=== PATIENT | female | born 2000 | race Caucasian/White ===

== ENCOUNTER 2023-01-27 15:39 | Outpatient (RCR) | payer BC, SELFPAY ==
[2023-01-27 16:36] LABS: HCG Quantitative <1 mIU/mL
== END 2023-02-21 17:34 | disposition home or self-care (01) ==
LOC: LAB 15:39
PROVIDERS: PCP Family Medicine; Visit Provider Obstetrics & Gynecology
DX: N92.6 Irregular menstruation, unspecified (principal)
CPT/HCPCS: 36415; 84702

== ENCOUNTER 2023-04-21 13:48 | Outpatient (OUT) | payer BC, SELFPAY ==
--- NOTE | 2023-04-21 14:13 | US_ITS ---
[address] [address] Patient Name: CHARLY FOSTER MRN: [id number] date: 2000 Sex: F Assigned Patient Location: US Current Patient Location: US Accession/Order Number: [id number] Exam Date: 04/21/2023 14:40 Report Date: 04/21/2023 15:18 At the request of: MAKAYLA SMITH Procedure: US pelvis transvaginal EXAMINATION: US pelvis transvaginal HISTORY: PCOS E28.2 COMPARISON: No relevant comparison available. TECHNIQUE: Transabdominal and/or transvaginal sonographic examination was performed as indicated by examination type. FINDINGS: UTERUS: Normal size and appearance. Incidental 4 mm nabothian cysts within cervix. Uterus size: 7.0 x 4.0 x 3.0 cm ENDOMETRIUM: Normal homogeneous appearance. Endometrial thickness: 8 mm RIGHT OVARY: Contains numerous small peripherally located follicles. Duplex Doppler demonstrates normal waveform and flow; resistive index 0.5. Ovary size: 3.8 x 2.2 x 1.6 cm LEFT OVARY: Contains numerous small peripherally located follicles. Duplex Doppler demonstrates normal waveform and flow; resistive index 0.5. Ovary size: 2.7 x 2.2 x 2.4 cm CUL-DE-SAC: Unremarkable. No significant free fluid. BLADDER: Unremarkable. OTHER: None. US/US pelvis transvaginal IMPRESSION: 1. Numerous small peripherally located follicles within both ovaries; nonspecific but often associated with polycystic ovarian syndrome. 2. Unremarkable uterus and endometrium. Electronically authenticated by: GREGORY KLEIN Date: 04/21/2023 15:18
[2023-04-21 14:28] LABS: Basophils Percent Auto 0.4 % (0.2-2.0); Eosinophils Absolute Auto 0.1 10^3/uL (0.0-0.7); Eosinophils Percent Auto 0.9 % (0.9-7.0); Hematocrit 44.2 % (36.0-48.0); Hemoglobin 14.9 g/dL (12.0-16.0); Immature Granulocytes Abs Auto 0.03 10^3/uL (0.00-0.03); Immature Granulocytes Pct Auto 0.3 % (0.0-0.5); Lymphocytes Absolute Auto 1.9 10^3/uL (1.2-3.8); Mean Corpuscular HGB Conc 33.7 g/dL (29.9-35.2); Mean Corpuscular Hemoglobin 30.7 pg (26.7-34.0); Mean Corpuscular Volume 91.1 fL (81.0-99.0); Mean Platelet Volume 9.6 fL (9.5-13.5); Monocytes Absolute Auto 0.6 10^3/uL (0.3-0.8); Monocytes Percent Auto 6.9 % (1.7-12.0); Neutrophils Absolute Auto 6.4 10^3/uL (1.4-6.5); Neutrophils Percent Auto 70.5 % (43.0-75.0); Platelet Count 307 10^3/uL (150-450); Red Blood Count 4.85 10^6/uL (4.20-5.40)
[2023-04-21 14:43] LABS: Estimated Average Glucose 103 mg/dL; Glycohemoglobin A1C 5.2 % (4.5-6.2)
[2023-04-21 14:55] LABS: HCG Quantitative <1 mIU/mL; Thyroid Stimulating Hormone 0.765 uIU/mL (0.358-3.740)
[2023-04-21 15:49] LABS: Free T4 0.92 ng/dL (0.76-1.46)
[2023-04-22 04:07] LABS: FSH 6.5 mIU/mL (.); Luteinizing Hormone(LH) 24.1 mIU/mL (.); Progesterone 0.4 ng/mL (.)
[2023-04-26 19:07] LABS: DHEA, Serum 415 ng/dL (31-701)
== END 2023-04-21 13:49 | disposition home or self-care (01) ==
PROVIDERS: PCP Family Medicine; Visit Provider Obstetrics & Gynecology
DX: E28.2 Polycystic ovarian syndrome (principal); N97.9 Female infertility, unspecified
CPT/HCPCS: 36415; 76830; 82626; 82627; 83001; 83002; 83036; 84144; 84439; 84443; 84702; 85025

== ENCOUNTER 2023-05-26 13:26 | Outpatient (OUT) | payer BC, SELFPAY ==
[2023-05-27 04:07] LABS: Progesterone 9.8 ng/mL (.)
== END 2023-05-26 13:27 | disposition home or self-care (01) ==
PROVIDERS: PCP Family Medicine; Visit Provider Obstetrics & Gynecology
DX: N97.9 Female infertility, unspecified (principal)
CPT/HCPCS: 36415; 84144

== ENCOUNTER 2023-06-25 11:52 | Outpatient (OUT) | payer BC, SELFPAY ==
[2023-06-28 04:48] LABS: Progesterone 6.6 ng/mL (.)
== END 2023-06-25 11:53 | disposition home or self-care (01) ==
LOC: LAB 11:54
PROVIDERS: PCP Family Medicine; Visit Provider Obstetrics & Gynecology
DX: N97.9 Female infertility, unspecified (principal)
CPT/HCPCS: 36415; 84144

== ENCOUNTER 2023-08-08 19:56 | Emergency (ER) | payer BC, SELFPAY ==
[2023-08-08] VITALS (15 sets, daily range): BP systolic 119; BP diastolic 81; PULSE 79–105; RESP 12–21; TEMP 36.6; O2SAT 99; BMI 19.8
--- OUTSIDE RECORDS SUMMARY | 2023-08-08 20:09 | XMS_ITS | CCD ---
Author Name Unknown Address [address] [place] [address] Organization [facility] Care Team Providers Care Key Cutter Name Role Phone Pcp, No Primary Care Provider UnavailKay Howard Unavailable Sameera Martin Unavailable Judith Brothers Unavailable ANA GUERRERO Attending Unavailable DR JUDITH BROTHERS Primary Care Unavailable ANA GUERRERO Admitting Unavailable JESUSITA MARTINEZ Consulting Unavailable JES SHEIKH Consulting Unavailable DR JUDITH BROTHERS Primary Care Unavailable BERNARDINO FERRER Admitting Unavailable DR GREGORY KLEIN Consulting Unavailable BERNARDINO FERRER Attending Unavailable BERNARDINO FERRER Consulting Unavailable OMAIRA Gillette Attending Provider Sameera Stallworth Unavailable NO FAMILY, PHYSICIAN Primary Care Provider Unava ilable LALO Stallworth Attending Provider NO FAMILY, PHYSICIAN Primary Care Unavailable Sameera Stallworth Admitting Unavailable Sameera Stallworth Attending Unavailable Kay Gillette Admitting Unavailable Kay Gillette Attending Unavailable NO FAMILY, PHYSICIAN Primary Care Unavailable Allergies Allergy Classification Reported Allergen(s) Allergy Type Date of Onset Reaction(s) Facility (14 sources) Ciprofloxacin Drug Allergy very nauseous, Unknown [facility] Other (11 sources) Codeine Drug Allergy sensitive over dose as a child [facility] Other (13 sources) venlafaxine; Translations: [Effexor] Drug Allergy 09-17-19 20 swelling/shaki ng [facility] (2 sources) Atenolol Drug Allergy Unknown [facility] (1 source) Cefuroxime Drug Allergy [facility] (2 sources) Ciprofloxacin Drug Allergy very nauseous [facility] (1 source) Codeine Drug Allergy 04-21-20 13 [facility] (4 sources) Iothalamate Drug Allergy 09-17-19 20 Unknown [facility] (2 sources) Perazine Drug Allergy Unknown [facility] (4 sources) predniSONE Drug Allergy 01-24-20 19 Unknown [facility] (4 sources) Sulfamethoxazole / Trimethoprim Drug Allergy Unknown [facility] (2 sources) Atenolol Drug Allergy Unknown [facility] Other (5 sources) Cefuroxime Drug Allergy 09-24-19 18 Unknown [facility] Other (3 sources) Codeine Drug Allergy Unknown [facility] Other (2 sources) rizatriptan Drug Allergy Unknown [facility] Other (2 sources) venlafaxine Drug Allergy Unknown [facility] Other (3 sources) corticosteroid and/or corticosteroid derivative (FN) Drug allergy Unknown [facility] Other (1 source) Cefuroxime Drug Allergy Unknown [facility] Other (1 source) Codeine Drug Allergy sensitive over dose as a child [facility] Other (1 source) venlafaxine Drug Allergy Unknown [facility] Other Medications Current Medications Medication Drug Class(es) Dates Sig (Normalized) Sig (Original) [id number] actuat albuterol 0.09 mg/actuat metered dose inhaler (1 source) beta2-Adrenergic Agonist Start: 07-05-2023 take 2 puff(s) by inhalation four times daily as needed Albuterol Sulfate HFA 108 (90 Base) MCG/ACT 2 puffs Inhalation 4 times a day prn Jun, Active amoxicillin 875 mg / clavulanate 125 mg oral tablet (1 source) Penicillin-class Antibacterial Start: 07-05-2023 take 1 tablet by mouth every twelve hours Amoxicillin-Pot Clavulanate 875-125 MG 1 tablet Orally every 12 hrs for 10 day(s) Jun, Active azithromycin 250 mg oral tablet (2 sources) Macrolide Antimicrobial Start: 09-16-2022 Azithromycin 250 MG as directed Orally 2 tabs po today, then 1 tab daily x 4 more days for 5 Aug, Active benzonatate 200 mg oral capsule (3 sources) Non-narcotic Antitussive Start: 07-05-2023 take 1 capsule by mouth every eight hours Benzonatate 200 MG 1 capsule Orally Three times a day Jun, Active Start: 09-16-2022 take 1 capsule by mo [facility] every eight hours Benzonatate 200 MG 1 capsule Orally Three times a day for 10 day(s) Aug, Active busPIRone hydrochloride 10 m g oral tablet (20 sources) take 1 tablet by zachary twice daily busPIRone HCl 10 mg TAKE 1 TABLET BY MOUTH TWICE DAILY for 30 Active take 1 tablet by zachary three times daily as needed BuSpar 5 MG 1 tablet Orally Three times a day Not-Taking/PRN fluticasone (2 sources) Corticosteroid Start: 04-26-2021 take 2 spray(s) nasal route once daily FLONASE 50 mcg 2 sprays nasally qd 2 sprays to each nostril daily until your symptoms improve Apr, Active Medrol Dose Pack as directed (2 sources) Start: 04-26-2021 Medrol Dose Pa ck as directed as directed orally as directed for 6 days Apr, Active metFORMIN hydrochloride 100 mg/ml oral solution (2 sources) Biguanide take 5 mL by mouth once daily metFORMIN HCl 500 MG/5ML 5 mL with a meal Orally Once a day Active take 5 mL by mouth once daily me tFORMIN HCl 500 MG/5ML 5 mL with a meal Orally Once a day Active methylPREDNISolone 4 mg oral tablet (2 sources) Corticosteroid Start: 06-14-2022 Medrol 4 MG as directed Orally as directed for 6 days May, Active Completed/Discontinued Medications Medication Drug Class(es) Dates Sig (Normalized) Sig (Original) amoxicillin 500 mg oral capsule (10 sources) Penicillin-class Antibacterial Start: 09-10-2022 take 1 capsule by mouth every twelve hours Amoxicillin 500 MG 1 capsule Orally Twice a day for 7 days Aug, Not-Taking/PRN Start: 09-10-2022 take 1 capsule by mo ut every eight hours Amoxicillin 500 MG 1 capsule Orally three times a day for 10 day(s) Aug, Not-Taking Start: 06-14-2022 take 1 capsule by mo uth every eight hours Amoxicillin 500 MG 1 capsule Orally three times a day for 10 day(s) May, Active Cyproheptadine (7 sources) Cyproheptadine H Cl Not-Taking/PRN Cyproheptadine H Cl Not-Taking Cyproheptadine H Cl Active Metoprolol-HCTZ ER (10 sources) Metoprolol-HCTZ ER Not-Taking/PRN Metoprolol-HCTZ ER Not-Taking Metoprolol-HCTZ ER Active nitrofurantoin, macrocrystals 25 mg / nitrofurantoin, monohydrate 75 mg oral capsule (7 sources) Nitrofuran Antibacterial Start: 01-15-2023 take 1 capsule by mouth every twelve hours Macrobid 100 MG 1 cap(s) Orally bid for 5 day(s) Dec, Not-Taking/PRN phenazopyridine hydrochloride 200 mg oral tablet (7 sources) Start: 01-15-2023 take 1 tablet by mouth every eight hours Pyridium 200 MG 1 tablet after meals Orally Three times a day for 2 day(s) Dec, Not-Taking/PRN predniSONE 20 mg oral tablet (9 sources) Start: 09-10-2022 take 1 tablet by mouth every twelve hours predniSONE 20 MG 1 tablet Orally 2 times a day for 5 day(s) Aug, Not-Taking/PRN topiramate (10 sources) Topamax Not-Taking/PRN Topamax Not-Taki ng Topamax Active Problems Active Problems Problem Classification Problem Date Documented Da te Episodic/Chronic Bacterial infection; unspecified site (2 sources) Other specified bacterial agents as the cause of diseases classified elsewhere Episodic Chronic obstructive pulmonary disease and bronchiectasis (1 source) Bronchitis, not specified as acute or chronic Episodic Conditions associated with dizziness or vertigo (12 sources) Dizziness; Translations: [Dizziness] Episodic E Codes: Natural/environment (1 source) Overexertion from prolonged static or awkward postures, initial encounter; Translations: [OVEREXERT PROLNG STAT/AWK PST INIT] Onset: 12-06-2022 Episodic Genitourinary symptoms and ill-defined conditions (10 sources) Dysuria; Translations: [Dysuria] Onset: 01-15-2023 Episodic Immunizations and screening for infectious disease (14 sources) Contact with and (suspected) exposure to other viral communicable diseases; Translations: [Contact with and (suspected) exposure to other viral communicable diseases Z20.828] Onset: 04-26-2021 Resolved: 06-13-2021 Episodic Menstrual disorders (3 sources) Missed period; Translations: [Irregular menstruation, unspecified] Chronic Other injuries and conditions due to external causes (1 source) Injury, unspecified, initial encounter Episodic Other non-traumatic joint disorders (3 sources) Pain in left ankle and joints of left foot; Translations: [PAIN IN LEFT ANKLE] Onset: 12-02-2022 Episodic Other upper respiratory disease (12 sources) Allergic rhinitis; Translations: [Allergic rhinitis, unspecified] Chronic Other upper respiratory infections (20 sources) Acute sinusitis; Translations: [Sinusitis acute] Onset: 04-26-2021 Resolved: 06-13-2021 Episodic Sprains and strains (1 source) Sprain of unspecified ligament of left ankle, initial encounter; Translations: [SPRAIN UNS LIGAMENT LT ANKLE INIT] Onset: 12-06-2022 Episodic Superficial injury; contusion (1 source) Contusion of right hand, initial encounter Episodic Unclassified (1 source) Injury, unspecified, initial encounter; Translations: [Injury, unspecified, initial encounter] Onset: 06-24-2023 Urinary tract infections (2 sources) Urinary tract infection, site not specified Episodic Past or Other Problems Problem Classification Problem Date Documented Da te Episodic/Chronic Other circulatory disease (3 sources) Orthostatic hypotension; Translations: [Orthostatic hypotension] Onset: 07-19-2013 Episodic Other connective tissue disease (4 sources) Pain in left foot; Translations: [PAIN IN LEFT FOOT] Onset: 01-05-2022 Episodic Other non-traumatic joint disorders (1 source) Other specified joint disorders, left ankle and foot; Translations: [OTHER SPEC JOINT D/O LT ANKLE FOOT] Onset: 01-07-2022 Episodic Unclassified (1 source) Suspected COVID-19 virus infection Z20.822 Results Test Name Value Interpretation Reference Range Facility COVID + FLU Quick Testingon 07-05-2023 SARS-CoV-2 (COVID-19) RNA FRANKLIN+probe Ql (Unsp spec) Negative [facility] Other COVID + FLU Quick Testing Negative [facility] Other Test, Urineon Beta HCG ( test) Ql (U) Negative [facility] Other XR hand RT min 3V*on 023 XR hand RT min 3V* [facility] Other XR hand RT min 3V* [facility] Other XR hand RT min 3V* [address] [place] [address] [facility] Other XR hand RT min 3V* [place]RISTIAN Rodrigues [id number] [facility] Other XR hand RT min 3V* XRay Report [facility] Other XR hand RT min 3V* Signed [facility] Other XR hand RT min 3V* Patient: Charly Foster MR#: [id number] [facility] Other XR hand RT min 3V* 1015 [facility] Other XR hand RT min 3V* : 2000 Acct:[id number] [facility] Other XR hand RT min 3V* Age/Sex: 23 / F ADM Date: 06/24/23 [facility] Other XR hand RT min 3V* Loc: XDUCLY Room: Type: [facility] Other XR hand RT min 3V* Attending Dr: Sameera Stallworth APRN [facility] Other XR hand RT min 3V* Copies to: Sameera Stallworth APRN [facility] Other XR hand RT min 3V* Ordering Provider: Sameera Stallworth APRN [facility] Other XR hand RT min 3V* Date of Service: 06/24/23 [facility] Other XR hand RT min 3V* XR/XR hand RT min 3V*: Injury [facility] Other XR hand RT min 3V* 3 views right hand plain film [facility] Other XR hand RT min 3V* COMPARISON: None [facility] Other XR hand RT min 3V* HISTORY: Right hand injury [facility] Other XR hand RT min 3V* ACUTE FINDINGS: None [facility] Other XR hand RT min 3V* DEGENERATIVE CHANGE: Unremarkable [facility] Other XR hand RT min 3V* SOFT TISSUE FINDINGS : Unremarkable [facility] Other XR hand RT min 3V* JOINT EFFUSION: None [facility] Other XR hand RT min 3V* POSTOP CHANGES: None [facility] Other XR hand RT min 3V* BONY MINERALIZATION: Adequate [facility] Other XR hand RT min 3V* XR/XR hand RT min 3V* [facility] Other XR hand RT min 3V* IMPRESSION: No acute findings [facility] Other XR hand RT min 3V* Impression dictated by: Saul Staton M.D.06/24/2023 10:17 AM [facility] Other XR hand RT min 3V* Dictation Location: [place] [address] [facility] Other XR hand RT min 3V* Transcribed By: JONATHAN 06/24/[address] [facility] [place] [facility] Other XR hand RT min 3V* Dictated By: Saul Staton DO 06/24/23 1018 [facility] Other XR hand RT min 3V* Signed By: [facility] Other XR hand RT min 3V* 06/24/23 1017 [facility] Other XR hand RT min 3V* [facility] [place] [address] [place] [address] XRay Report Signed Patient: Charly Foster MR#: [id number] 1015 : 2000 Acct:[id number] Age/Sex: 23 / F ADM Date: 06/24/23 Loc: XDUCLY Room: Type: [facility] Attending Dr: Sameera Stallworth APRN Copies to: Sameera Stallworth APRN Ordering Provider: Sameera Stallworth APRN Date of Service: 06/24/23 XR/XR hand RT min 3V*: Injury 3 views right hand plain film COMPARISON: None HISTORY: Right hand injury ACUTE FINDINGS: None DEGENERATIVE CHANGE: Unremarkable SOFT TISSUE FINDINGS: Unremarkable JOINT EFFUSION: None POSTOP CHANGES: None BONY MINERALIZATION: Adequate XR/XR hand RT min 3V* IMPRESSION: No acute findings Impression dictated by: Saul Staton M.D.06/24/2023 10:17 AM Dictation Location: [facility]--12 Transcribed By: JONATHAN 06/24/23 1017 Dictated By: Saul Staton DO 06/24/23 1015 Signed By: 06/24/[address] [facility] Urinalysis - AUTOMATEDon Appearance (U) cloudy [facility] Other Bilirubin Ql (U) small [facility] Other Color (U) sameera [facility] Other Glucose Ql (U) Negative [facility] Other Hemoglobin Ql (U) large Anaergia Other Ketones Ql (U) Negative [facility] Other Leukocyte esterase Test strip Ql (U) large [facility] Other Nitrite Ql (U) Positive [facility] Other pH (U) 6.5 [pH] [facility] Other Protein Ql (U) >300 [facility] Other Specific gravity (U) [Rel density] >1.030 [facility] Other Urobilinogen (U) [Mass/Vol] 1.0 mg/dL [facility] Other Urinalysis - AUTOMATED [facility] Other Urine Cultureon 01-15-2023 Bacteria identified Cx Nom (U) Reason for Exam Dysuria Urine 50,000 colonies/ml mixed bacterial skin contaminants 2 Days PERFORMED BY: [place] [address] PATHOLOGIST CHILD CENTER ASSISTANT YECENIA WHITE M.D. Normal [facility] Comment on above: Performed By: #### C UU #### [address] Bacteria identified Cx Nom (U) [facility] Other URon 12-02-2022 , QUAL Negative Normal NEGATIVE [facility] Comment on above: Performed By: #### P REGU #### [facility] [address] [place] [address] Dr. Corie Frias XR ANKLE LT MIN 3 Von 2022 XR ANKLE LT MIN 3 V XR ANKLE LT MIN 3 V: HISTORY: Traumatic AND/OR non-traumatic injury. COMPARISON: 01/05/2022. TECHNIQUE: 3 radiographic view(s) obtained. FINDINGS: BONES/JOINT SPACES: There is no acute fracture or dislocation. Joint spaces appear normal. There are no other significant findings. SOFT TISSUES: Normal. IMPRESSION: No acute bony abnormality. Electronically authenticated by: JES SHEIKH Date: 2022-12-02 19:47 Normal [facility] XR FOOT LT MIN 3 VIEWSon XR FOOT LT MIN 3 VIEWS XR FOOT LT MIN 3 VIEWS: HISTORY: Traumatic AND/OR non-traumatic injury. COMPARISON: 01/05/2022. TECHNIQUE: 3 radiographic view(s) obtained. FINDINGS: BONES/JOINT SPACES: There is no acute fracture or dislocation. Joint spaces appear normal. There are no other significant findings. SOFT TISSUES: Normal. IMPRESSION: No acute bony abnormality. Electronically authenticated by: JES SHEIKH Date: 2022-12-02 19:48 Normal [facility] COVID + FLU Quick Testingon 09-10-2022 SARS-CoV-2 (COVID-19) RNA FRANKLIN+probe Ql (Unsp spec) Negative [facility] Other COVID + FLU Quick Testing Negative [facility] Other Quick Strepon 09-10-2022 S. pyogenes Org specific cx Ql (Throat) Negative [facility] Other Quick Strep [facility] Other COVID/FLU RT-PCRon 2 SARS-CoV-2 (COVID-19) RNA FRANKLIN+probe Ql (Unsp spec) Negative [facility] Other COVID/FLU RT-PCR Negative [facility] Other Progress Noteon 08-20-2021 [employer] Authentication Interface Message Text Previous Diagnoses: 1. Mild mitral valve prolapse with mild mitral valve regurgitation 2. Chest pain and rapid heart rate 3. Atrial and ventricular ectopy 4. Vasovagal syncope History: Charly Foster is a 21 y.o. young lady with mitral valve prolapse who we have evaluated in the past for chest pain and palpitations and rapid heart rate and she comes in today secondary to recent onset of chest pain and rapid heart rate and new onset stuttering. She has had episodes of shortness of breath with heart racing and dizziness and these can be associated with non radiating left mid parasternal tightness. She can feel her heart race every day any where from 20 minutes to all day. She can feel tingling of her hands and feet with these episodes. These symptoms have not improved with starting Metoprolol for her stuttering; her stuttering did get better for three days after beginning Prednisone and Metoprolol but this returned on day three after beginning these mediations. The rest of her cardiac review of symptoms is unremarkable and she has no further concerns. Non-Cardiac ROS: She wears glasses and occasional headaches, and has seasonal allergy symptoms. She has fatigue. No chronic sleep issues, sore throat or chronic URI symptoms, breathing difficulties or shortness of breath, fever/vomiting/diarrhe a, rashes or joint pain/swelling. All other systems reviewed and are negative. Past Symptom History: 09/19/2014: 3 month history of chest pain and rapid heart rate. Her upper and lower non radiating left parasternal chest pain occurs on average every other day to twice a day and lasts many minutes to hours. Her heart rate was recorded during one prolonged episode with rates from 120-150 BPM. She does have associated rapid heart rate with these episodes and can be short of breath. She does not have dizziness with these events and has had no associated syncope, but she has passed out twice in the past with blood draws/IV placements. She has never had events during Band. 10/17/2014: She did have improvement of her chest pain with Ibuprofen. October 2014: She did have a syncopal episode in October at school after she skipped breakfast and did not drink any fluids and she felt foggy and cloudy in her head and had tunnel vision with no other associated symptoms. Shortly after that she was started on Buspar for anxiety and has had only a very rare chest pain or palpitations and she feels like a different young lady 06/21/2018: (Telephone Call): Charly states she is experiencing the same chest discomfort, dizziness and rapid heart rate that she was evaluated for on 06/03/16. These episodes started approximately 2-3 weeks ago, occur once every other day, and last anywhere from 1-5 minutes. On 2 occassions, Charly obtained her HR at 120bpm and 140bpm. During the episodes, she can be short of breath. Charly was not exerting her self at the time HR was obtained. Charly states she was diagnosed with mono last week. Past Medical History: Charly Foster has anxiety for which she uses Buspar and Zoloft. She is currently taking Prednisone and Metoprolol for possible migraine type vocal changes. She is allergic to Codeine, Cipro, Maxalt, Effexor and Reglan She has never had surgery but was hospitalized for tonsil trauma from a pencil (?). She had a laparoscopy procedure and does not have endometriosis. She had ankle surgery (02/09/2021). Family History: There is no known congenital heart disease, arrhythmia, sudden or SIDS on the maternal or the paternal side of the family. 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 She is engaged to be . Physical Exam: 1. General: Alert, active, well developed, in no acute distress; Pectus Excavatum 2. Vital Signs: BP 109/65 (BP Site: Right Arm, Patient Position: Supine, BP Cuff Size: Adult) Pulse 84 Resp 18 Ht 166.8 cm Wt (!) 49.4 kg BMI 17.76 kg/m 3. Cardiovascular Exam: Normal precordium, regular rate and rhythm, normal S1 and S2, with no systolic, diastolic or continuous murmurs. There is not a mid systolic click heard at the apex heard today. There were no gallops or rubs. 4. Lungs: Clear to auscultation, equal breath sounds, no grunting, flaring or retracting 5. Abdomen: soft, non-tender and non-distended, no hepatosplenomegaly 6. Other: Normal four extremity pulses; normal perfusion with no cyanosis. Mild costochondral tenderness upon palpation of her chest wall Studies: 1. Electrocardiogram (08/20/2021): Normal sinus rhythm with NSTWA and a PAC. 2. Echocardiograms: A. 09/06/2014: Mild mitral valve prolapse with mild mitral valve regurgitation B. 06/03/2016: Very mild mitral valve prolapse with very mild mitral valve regurgitation C. 07/06/2018: Very mild mitral valve prolapse with very mild mitral valve regurgitation D. 08/20/2021: Very mild mitral valve pr (more content not included)... Normal [facility] COVID Quick Testingon 2020 Result Negative [facility] Other Vital Signs Date Time Vital Sign Value Performing Clinician Facility 07-05-2023 18:00-0500 Body height 165.1 cm Kay Gillette Other [facility] Other 07-05-2023 18:00-0500 Body mass index (BMI) [Ratio] 19.97 kg/m2 Kay Gillette Other [facility] Other 07-05-2023 18:00-0500 Body temperature 99.1 [degF] Kay Woodwardmond Other [facility] Other 07-05-2023 18:00-0500 Body weight 54.43 kg Kay Gillette Other [facility] Other 07-05-2023 18:00-0500 Respiratory rate 18 /min Kay Gillette Other [facility] Other 07-05-2023 18:00-0500 SaO2% (BldA) [Mass fraction] 99 % Kay Gillette Other [facility] Other 06-24-2023 09:45-0500 Body height 165.1 cm Sameera Stallworth Other [facility] Other 06-24-2023 09:45-0500 Body mass index (BMI) [Ratio] 20.13 kg/m2 Sameera Stallworth Other [facility] Other 06-24-2023 09:45-0500 Body temperature 97.7 [degF] Sameera Stallworth Other [facility] Other 06-24-2023 09:45-0500 Body weight 54.89 kg Sameera Stallworth Other [facility] Other 06-24-2023 09:45-0500 Respiratory rate 20 /min Sameera Stallworth Other [facility] Other 06-24-2023 09:45-0500 SaO2% (BldA) [Mass fraction] 98 % Sameera Stallworth Other [facility] Other 01-15-2023 11:40-0400 Body height 165.1 cm Kay Gillette Other [facility] Other 01-15-2023 11:40-0400 Body mass index (BMI) [Ratio] 19.97 kg/m2 Kay Woodwardmond Other [facility] Other 01-15-2023 11:40-0400 Body temperature 97.3 [degF] Kay Woodwardmond Other [facility] Other 01-15-2023 11:40-0400 Body weight 54.43 kg Kay Woodwardmond Other [facility] Other 01-15-2023 11:40-0400 Diastolic blood pressure 68 mm[Hg] Kay Leta Other [facility] Other 01-15-2023 11:40-0400 Respiratory rate 18 /min Kay Leta Other [facility] Other 01-15-2023 11:40-0400 SaO2% (BldA) [Mass fraction] 98 % Kay Leta Other [facility] Other 01-15-2023 11:40-0400 Systolic blood pressure 108 mm[Hg] Kay Woodwardmond Other [facility] Other 09-10-2022 18:40-0500 Body height 165.1 cm Kay Leta Other [facility] Other 09-10-2022 18:40-0500 Body mass index (BMI) [Ratio] 19.97 kg/m2 Kay Leta Other [facility] Other 09-10-2022 18:40-0500 Body temperature 98.7 [degF] Kay Leta Other [facility] Other 09-10-2022 18:40-0500 Body weight 54.43 kg Kay Woodwardmond Other [facility] Other 09-10-2022 18:40-0500 Respiratory rate 18 /min Kay Woodwardmond Other [facility] Other 09-10-2022 18:40-0500 SaO2% (BldA) [Mass fraction] 99 % Kay Woodwardmond Other [facility] Other 06-14-2022 17:25-0500 Body height 165.1 cm Kay Leta Other [facility] Other 06-14-2022 17:25-0500 Body mass index (BMI) [Ratio] 19.13 kg/m2 Kay Leta Other [facility] Other 06-14-2022 17:25-0500 Body temperature 100.7 [degF] Kay Leta Other [facility] Other 06-14-2022 17:25-0500 Body weight 52.16 kg Kay Leta Other [employer] Other 06-14-2022 17:25-0500 Respiratory rate 18 /min Kay Leta Other [employer] Other 06-14-2022 17:25-0500 SaO2% (BldA) [Mass fraction] 99 % Kay Leta Other [employer] Other 06-13-2021 15:30-0500 Body height 165.1 cm Sameera Ginty Other [employer] Other 06-13-2021 15:30-0500 Body mass index (BMI) [Ratio] 17.47 kg/m2 Sameera Ginty Other [employer] Other 06-13-2021 15:30-0500 Body temperature 97.9 [degF] Sameera Ginty Other [employer] Other 06-13-2021 15:30-0500 Body weight 47.63 kg Sameera Ginty Other [employer] Other 06-13-2021 15:30-0500 SaO2% (BldA) [Mass fraction] 98 % Sameera Ginty Other [employer] Other 04-26-2021 14:20-0400 Body height 165.1 cm Kay Leta Other [employer] Other 04-26-2021 14:20-0400 Body mass index (BMI) [Ratio] 17.47 kg/m2 Kay Leta Other [employer] Other 04-26-2021 14:20-0400 Body temperature 98.7 [degF] Kay Leta Other [employer] Other 04-26-2021 14:20-0400 Body weight 47.63 kg Kay Woodwardmond Other [employer] Other 04-26-2021 14:20-0400 SaO2% (BldA) [Mass fraction] 98 % Kay Leta Other [employer] Other Encounters Encounter Date Encounter Type Care Provider Facility Start: 07-05-2023 End: 07-05-2023 ambulatory Kay Gillette Other [employer] Other Start: 07-05-2023 Office outpatient visit 15 minutes Kay Gillette [facility] Start: 06-24-2023 Office outpatient visit 15 minutes Sameera Stallworth [facility] Start: 06-24-2023 End: 06-24-2023 ambulatory PHYSICIAN NO [facility] [employer] Other Start: 06-24-2023 End: 06-24-2023 Patient encounter procedure PHYSICIAN NO [facility] Work Phone: Start: 05-12-2023 (Televisit) Televisit Judith Malloy [facility] Start: 05-12-2023 End: 05-12-2023 ambulatory Judith Brothers Other [employer] Other Start: 01-17-2023 End: 01-17-2023 ambulatory Kay Gillette Other [employer] Other Start: 01-17-2023 Telephone encounter Kay [facility] Start: 01-15-2023 Office outpatient visit 15 minutes Kay Leta [facility] Start: 01-15-2023 Telephone encounter Judith Brothers [facility] Start: 01-15-2023 End: 01-15-2023 ambulatory Kay Woodwardmond [facility] [employer] Other Start: 01-15-2023 End: 01-15-2023 Departed Referred [employer] Kay Leta Work Phone: [facility] [place] Work Phone: Start: 12-02-2022 End: 12-02-2022 ambulatory ANA RUBIO . Facility:[facility] Start: 09-16-2022 (Televisit) Televisit Judith Malloy [facility] Start: 09-16-2022 End: 09-16-2022 ambulatory Judith Brothers Other [employer] Other Start: 09-10-2022 End: 09-10-2022 ambulatory Kay Woodwardmond Other [employer] Other Start: 09-10-2022 Office outpatient visit 15 minutes Kaytera Gillette [facility] Start: 06-14-2022 End: 06-14-2022 ambulatory Kay Woodwardmond Other [employer] Other Start: 06-14-2022 Office outpatient visit 15 minutes Kay Leta [facility] Start: 01-05-2022 End: 01-06-[address] JUDITH BROTHERS Facility:[facility] Start: 06-13-2021 End: 06-13-2021 ambulatory Sameera Ginty Other [employer] Other Start: 06-13-2021 Office outpatient visit 15 minutes Sameera Ginty [facility] Start: 04-26-2021 Office outpatient visit 15 minutes Kay Leta [facility] Start: 10-29-2020 End: 10-29-2020 Patient encounter procedure Verito Wilkerson Work Phone: [facility] Start: 10-29-2020 Results Only Verito hua Work Phone: Gastroenterology Procedures Date Procedure Procedure Detail Performing Clinician Start: 06-24-2023 Plain X-ray of right hand PHYSICIAN NO FAMILY Start: 10-29-2020 PT ED PATIENT INFORMATION Verito Wilkerson Work Phone: Plan of Treatment Date Care Activity Detail Author Start: 01-15-2023 Bacteria identified in Urine by Culture [facility] Start: 2020 PAP TESTING PAP TESTING [facility] Start: 03-25-2020 Influenza vaccination INFLUENZA (#1) [facility] Start: 2018 Urine microalbumin profile DTAP,TDAP,TD (1 - Tdap) [facility] Start: 2017 CHLAMYDIA SCREENING (18-24) CHLAMYDIA SCREENING (18-24) [facility] Start: 2017 GC (GONORRHEA) SCREE JARRETT (18-24) GC (GONORRHEA) SCREENING (18-24) [facility] Start: 2017 HEPATITIS C SCREENING HEPATITIS C SC REENING [facility] Start: 2017 HIV SCREENING HIV SCREENING [facility] Start: 2011 Adult depression screening assessment DEPRESSION SCREENING [facility] Start: 2010 HPV VACCINE (1 - 2-d ose series) HPV VACCINE (1 - 2-dose series) [facility] PT ED PATIENT INFORMATION PT ED PATIENT INFORMATION Other 10/29/2020 [facility] Immunizations Immunization Date Immunization Notes Care Provider Fa dion 04-06-2017 meningococcal oligosaccharide (groups A, C, Y and W-135) diphtheria toxoid conjugate vaccine (MCV4O) Judith Brothers Other [employer] Other Payers Date Payer Category Payer [facility] [id number] 2023 Self-pay [id number] 2016 Unknown [employer] PPO [id number] 2016-Present PPO [id number] 1999 Unknown [id number] 1999 Unknown [id number] 1960 [facility] [id number] Private Health Insurance [facility] [id number] Unknown [id number] Unknown [id number] Unknown [id number] Social History Date Type Detail Facility Tobacco smoking status IAIS Unknown if ever smoked [facility] Start: 2000 Sex Assigned At Not on file [facility] Sex Assigned At Sex Assigned At [facility] [employer] Other Start: 2000 Sex Assigned At Female F [facility] Clinical Notes 04-26-2021 to 07-05-2023 Note Date & Type Note Facility 07-05-2023 Evaluation note Encounter Date Diagnosis Assessment Notes Jun, Acute sinusitis, recurrence not specified, unspecified location (ICD-10 - J01.90) Drink plenty fluids, get plenty of rest. Take the amoxicillin with clavulanate and Medrol Dosepak as prescribed until gone. Use the albuterol inhaler as prescribed as needed for cough or shortness of breath. Take the benzonatate capsules as prescribed as needed for cough. Take Tylenol or Motrin as needed for aches pains or fevers. Follow-up with your family physician if no improvement in 2 to 3 days. Jun, Bronchitis (ICD-10 - J40) Jun, Suspected COVID-19 virus infection (ICD-10 - Z20.822) [employer] Other 12-01-2023 Evaluation note* Encounter Date Diagnosis Assessment Notes Treatment Notes Treatment Clinical Notes Jun, Injury (ICD-10 - T14.90XA) Jun, Contusion of right hand, initial encounter (ICD-10 - S60.221A) XR images and final report reviewed, no acute bony abnormalities. LINDSEY wrap provided today in office. Encouraged RICE therapy discussed- rest extremity, avoid excessive or strenuous activity, complete activity as tolerated; ice area for 15-20 minutes at a time multiple times a day, ensure thin cloth barrier between skin and ice; LINDSEY wrap area; keep extremity elevated. Advised patient to use OTC NSAIDs/Tylenol as directed as needed for discomfort. Instructed patient to follow up with PCP or ortho if sx do not improve in the next 5-7 days. Immediate eval by ER for warning s/sx as discussed. Patient verbalizes understanding and is agreeable to treatment plan Jun, Missed period (ICD-10 - N92.6) test performed prior to x-ray due to missed period, test was negative. Patient made aware. Advised follow above treatment plan recommendations [employer] Other 10-19-2023 Evaluation note* Encounter Date Diagnosis Assessment Notes Treatment Notes Treatment Clinical Notes Apr, Acute non-recurrent maxillary sinusitis (ICD-10 - J01.00) Take medication as prescribed. Humidification, saline nose spray, Neti pot suggested for sinus relief. OTC acetaminophen/ibup rofen for pain. May continue OTC decongestants/anti histamines. [employer] Other 06-24-2023 Evaluation note* Encounter Date Diagnosis Assessment Notes Treatment Notes Treatment Clinical Notes Dec, Dysuria (ICD-10 - R30.0) Dec, Acute UTI (ICD-10 - N39.0) Urinary tract infection (UTI) home care material was printed Drink plenty fluids, get plenty of rest. Take the Macrobid and Pyridium as prescribed until gone. Take Tylenol or Motrin as needed for aches pains or fevers. Follow-up with your family physician if no improvement in 2 to 3 days. [employer] Other 02-23-2023 Evaluation note* Encounter Date Diagnosis Assessment Notes Treatment Notes Treatment Clinical Notes Aug, Acute non-recurrent maxillary sinusitis (ICD-10 - J01.00) Sinus infections can be triggered by a secondary infection from a viral URI or even seasonal allergies. Take medications as directed. Use saline nasal spray prior to presciption nasal spray. Take medications as directed, and complete all doses of medication even if you start to feel better. [employer] Other 02-17-2023 Evaluation note* Encounter Date Diagnosis Assessment Notes Treatment Notes Treatment Clinical Notes Aug, Sore throat (ICD-10 - J02.9) Aug, Acute pharyngitis due to other specified organisms (ICD-10 - J02.8) Pharyngitis/tonsil lopharyngitis: adult home care material was printed Drink plenty fluids, get plenty of rest. Take the amoxicillin and prednisone as prescribed until gone. Consider drinking warm tea with honey for comfort. Follow-up with your family physician if no improvement in 2 to 3 days. Aug, Contact with and (suspected) exposure to other viral communicable diseases (ICD-10 - Z20.828) Aug, Other specified bacterial agents as the cause of diseases classified elsewhere (ICD-10 - B96.89) [employer] Other 11-21-2022 Evaluation note* Encounter Date Diagnosis Assessment Notes Treatment Notes Treatment Clinical Notes May, Contact with and (suspected) exposure to other viral communicable diseases (ICD-10 - Z20.828) May, Acute pharyngitis due to other specified organisms (ICD-10 - J02.8) Pharyngitis/tonsil lopharyngitis: adult home care material was printed Drink plenty fluids, get plenty of rest. Take the amoxicillin and Medrol Dosepak as prescribed until gone. Take Tylenol or Motrin as needed for aches pains or fevers. Follow-up with your family physician if no improvement in 2 to 3 days. May, Other specified bacterial agents as the cause of diseases classified elsewhere (ICD-10 - B96.89) [employer] Other 06-14-2022 NotePROCEDURE: XR ANKLE LT MIN 3 V, XR FOOT LT MIN 3 VIEWS HISTORY: Pain of left ankle joint ; lateral ankle pain following injury COMPARISON: XR ankle left 02/09/2021 FINDINGS: BONES:No fracture, acute abnormality, or significant arthropathy. SOFT TISSUES:No visible soft tissue swelling. EFFUSION:None visible. OTHER: Negative. IMPRESSION: 1. No acute bone abnormality or suspicious findings. Electronically authenticated by: GREGORY KLEIN Date: 2022-01-05 16:37[facility]06-14-2022 NotePROCEDURE: XR ANKLE LT MIN 3 V, XR FOOT LT MIN 3 VIEWS HISTORY: Pain of left ankle joint ; lateral ankle pain following injury COMPARISON: XR ankle left 02/09/2021 FINDINGS: BONES:No fracture, acute abnormality, or significant arthropathy. SOFT TISSUES:No visible soft tissue swelling. EFFUSION:None visible. OTHER: Negative. IMPRESSION: 1. No acute bone abnormality or suspicious findings. Electronically authenticated by: GREGORY KLEIN Date: 2022-01-05 16:37[facility]11-20-2021 Evaluation note* Encounter Date Diagnosis Assessment Notes Treatment Notes Treatment Clinical Notes May, Sore throat (ICD-10 - J02.9) May, Viral URI with cough (ICD-10 - J06.9) Advised patient that rapid COVID antigen test and strep test was negative today. Advised patient that will tx as viral URI. Supportive care as directed, increase fluids and rest, Tylenol/Motrin as directed, OTC cough/cold remedies as directed on packaging, cool mist humidifier, throat lozenges. Discussed infection control practices such as good hand washing and mask wearing. Patient to follow up with PCP if sx persist or worsen despite treatment. Immediate eval by ER for warning s/sx as discussed, including but not limited to, SOB, difficulty breathing, chest pain, palpitations, fever >103 or fevers that are not reduced with antipyretic, significant dehydration (unable to keep fluids or food down, persistent vomiting/diarrhea ), abdominal pain, lethargy, severe headache. Patient verbalizes understanding and is agreeable to treatment plan May, Contact with and (suspected) exposure to other viral communicable diseases (ICD-10 - Z20.828) May, Other Additional time spent conducting pre-visit phone call, screening for symptoms, instructions on social distancing, application and removal of PPE, and cleaning of examination room, equipment and supplies was preformed. Patient education given for testing methodology and results. Patient care instructions given in writting by [employer] document [employer] Other 10-03-2021 Evaluation note* Encounter Date Diagnosis Assessment Notes Treatment Notes Treatment Clinical Notes Apr, Contact with and (suspected) exposure to other viral communicable diseases (ICD-10 - Z20.828) Apr, Acute sinusitis, recurrence not specified, unspecified location (ICD-10 - J01.90) Drink plenty fluids, get plenty of rest. Take the Medrol Dosepak as prescribed until gone. Use the Flonase inhaler as prescribed until your symptoms improve. Consider taking Mucinex or Sudafed for your symptoms as well. Tylenol or Motrin for aches pains or fevers. Follow-up with your family physician if no improvement in 2 to 3 days. Apr, Other Additional time spent conducting pre-visit phone call, screening for symptoms, instructions on social distancing, application and removal of PPE, and cleaning of examination room, equipment and supplies was preformed. Patient education given for testing methodology and results. Patient care instructions given in writting by [employer] document. [employer] Other Evaluation noteNo assessment information available [facility] Work Phone: Evaluation noteNo InformationNort IZEA Other History general Narrative - Reported* Type Description Date Medical History concaved chest Medical History acne Medical History Mitral valve prolapse Medical History anxiety Medical History chronic depression Medical History migraine headache Medical History auto immune disorder unsure of n [place] Surgical History laparoscopy Hospitalization History see above [employer] Other History general Narrative - Reported* Type Description Date Medical History concaved chest Medical History acne Medical History Mitral valve prolapse Medical History anxiety Medical History chronic depression Medical History migraine headache Medical History urticaria Surgical History laparoscopy Hospitalization History see above [employer] Other Histlai general Narrative - Reported* Type Description Date Medical History concaved chest Medical History acne Medical History Mitral valve prolapse Medical History anxiety Medical History chronic depression Medical History migraine headache Medical History urticaria Surgical History laparoscopy Surgical History repair ankle tendon Hospitalization History see above [employer] Other [facility] general Narrative - Reported* Type Description Date Medical History concaved chest Medical History acne Medical History Mitral valve prolapse Medical History anxiety Medical History chronic depression Medical History migraine headache Medical History urticaria Medical History PCOS Surgical History laparoscopy Surgical History repair ankle tendon Hospitalization History see above [employer] Other Summary Purpose Family History No Family History Records FoundNo Family History Records FoundNo Family History Records Found Advance Directives Advance Directive Response Recorded Date/ Time Advance Directives No March 3:14pm Advance Directive Response Recorded Date/ Time Advance Directives No March 2:14pm Chief Complaint and Reason for Visit Chief Complaint Dysuria Additional Source Comments Source Comments (unrecognize d section and content) In the event this informatio n is protected by the Federal Confidentiality of Alcohol and Drug Abuse Patient Records regulations: The Federal rules restrict any use of the information to criminally investigate or prosecute any alcohol or drug abuse patient.[facility] INFORMATION SOURCE (unrecogn ized section and content) DATE CREATED AUTHOR 08/21/2021 [facility] DATE CREATED AUTHOR AUTHOR'S ORGANIZ ATION 12/06/2022 [facility] DATE CREATED AUTHOR AUTHOR'S ORGANIZ ATION 07/01/2023 [facility] REASON FOR VISIT (unrecogniz ed section and content) #18 MARTIN ESCAPE, SINUS CONGE STION, COUGH#21 SORE THROAT, CONGESTIONsore throat, ear pain, migranesSORE THROAT, N/V, DIARRHEA, EARACHE, HEADACHEcongestion, deep coughpossible UTIpossible UTINo InformationNo InformationSinus [phone] RIGHT HAND SPRAINPERSISTENT COUGH// Care Teams (unrecognized sec tion and content) Team Status: Inactive Member Role Status Dates OMAIRA Ramos Attending Provider Active Team Status: Active Member Role Status Dates PHYSICIAN NO FAMILY Primary Care Provider Active Team Status: Inactive Member Role Status Dates PHYSICIAN NO FAMILY Primary Care Provider Active Sameear Stallworth APRN Attending Provider Active Goals (unrecognized section and content) Goals may be documented in a n alternate section FOR RECORDS PERTAINING TO PATIENTS WHO ARE OR HAVE BEEN ENROLLED IN A CHEMICAL DEPENDENCY/SUBSTANCEABUSE PROGRAM, SOME INFORMATION MAY BE OMITTED. This clinical summary was aggregated from multiple sources. Caution should be exercised in using it in the provision of clinical care. This summary normalizes information from multiple sources, and as a consequence, information in this document may materially change the coding, format and clinical context of patient data. In addition, data may be omitted in some cases. CLINICAL DECISIONS SHOULD BE BASED ON THE PRIMARY CLINICAL RECORDS. [facility]. provides no warranty or guarantee of the accuracy or completeness of information in this document.
--- NOTE | 2023-08-08 20:12 | PC.NURSE ---
pain worsens with deep breathing and coughing.
--- NOTE | 2023-08-08 20:14 | ECG_ITS ---
[facility] Test Date: 2023-08-08 Pat Name: CHARLY FOSTER Department: Room: - Gender: Female Inspector And Sorter: : 2000 Requested By: MONSTER BROTHERS Order Number: [id number] Reading MD: SAGAR LEVI Measurements Intervals [place] Rate: 91 P: 30 KS: 124 QRS: 84 QRSD: 94 T: 2 QT: 336 QTc: 384 Interpretive Statements 1100 Sinus rhythm [address]/T wave changes, can't exclude inferior ischemia Electronically Signed On 08-09-2023 6:57:50 EST by SAGAR LEVI
--- NOTE | 2023-08-08 20:36 | ED.CHESTPAI1 ---
HPI - Chest Pain General Chief Complaint: Chest Pain Stated Complaint: cp Time Seen by Provider: 08/08/23 20:07 Source: patient Mode of arrival: walk-in History of Present Illness HPI narrative: 23-year-old female who uses a vapor pen but does not smoke cigarettes presents for evaluation of sharp stabbing pain underneath her right breast. The patient states she has had a cough since early June. She has productive yellow phlegm. She has pain in her chest with deep inspiration and any movement. She states that she has still been sick and yesterday could not get off of the couch all day. She denies any recent fever. She doubts the possibility of although she is trying to get . She has no nausea vomiting or diarrhea. Related Data Home Medications Medication Instructions Recorded Confirmed albuterol sulfate 90 mcg/actuation 2 puff inhalation Q6H PRN 08/08/23 08/08/23 aerosol inhaler shortness of breath or wheezing buspirone 10 mg tablet 10 mg PO BID 08/08/23 08/08/23 Allergies Allergy/AdvReac Type Severity Reaction Status Date / Time acetaminophen [From Fioricet] Allergy Severe Verified 08/08/23 20:09 butalbital [From Fioricet] Allergy Severe Verified 08/08/23 20:09 caffeine [From Fioricet] Allergy Severe Verified 08/08/23 20:09 ciprofloxacin [From Cipro] Allergy Severe Verified 08/08/23 20:09 codeine Allergy Severe Verified 08/08/23 20:09 [From Tylenol-Codeine #3] metoclopramide [From Reglan] Allergy Severe Verified 08/08/23 20:09 Review of Systems ROS Status of ROS 10 or more systems reviewed and unremarkable except as noted in history and below Exam Narrative Exam Narrative: Nurses note and vital signs reviewed and patient is not hypoxic.She was noted to be mildly tachycardic with a pulse of 105 at triage. She has no oxygen requirements General: Thin, alert female resting currently on a stretcher, she winces in pain with movement of her torso due to pain in the right side of her chest Skin: Warm, dry, no pallor noted. There is no rash noted. Head: Normocephalic, atraumatic Eye: Normal conjunctiva, no drainage, EOMI. PERRL Ears, Nose, Mouth, and Throat: oral mucosa is moist. Nares patent. Mouth without vesicles. Ear canals patent. Tm's without Erythema Cardiovascular: Regular Rate and Rhythm Respiratory: Patient is in no distress, no accessory muscle use, lungs are clear to auscultation, no wheezing, rales or rhonchi, Mild right anterior chest wall tenderness with no crepitus Back: non-tender, no CVA tenderness bilaterally to percussion. GI: Normal bowel sounds, no tenderness to palpation, no masses appreciated. No rebound, guarding, or rigidity noted. Musculoskeletal: The patient has no evidence of calf tenderness, no pitting edema, symmetrical pulses noted bilaterally Neurological: A&O x4, normal speech Psychiatric: Cooperative Constitutional Vital Signs, click to edit/add: Last Vital Signs Temp 97.8 F 08/08/23 20:01 Pulse 82 08/08/23 22:00 Resp 21 08/08/23 22:00 BP 119/81 08/08/23 20:04 Pulse Ox 99 08/08/23 20:11 O2 Del Method Room Air 08/08/23 20:11 Course Vital Signs Vital signs: Vital Signs Temperature 97.8 F 08/08/23 20:01 Pulse Rate 105 H 08/08/23 20:01 Respiratory Rate 16 08/08/23 20:01 Blood Pressure 119/81 08/08/23 20:01 Pulse Oximetry 99 08/08/23 20:01 Oxygen Delivery Method Room Air 08/08/23 20:01 Temperature 97.8 F 08/08/23 20:01 Pulse Rate 82 08/08/23 22:00 Respiratory Rate 21 08/08/23 22:00 Blood Pressure 119/81 08/08/23 20:04 Pulse Oximetry 99 08/08/23 20:11 Oxygen Delivery Method Room Air 08/08/23 20:11 MDM - Chest Pain MDM Narrative Medical decision making narrative: 23-year-old female who does not smoke cigarettes but uses a vape pen and has had a cough with productive yellow phelgm presents for evaluation of right sided chest/rib pain that is worse with coughing, movement and deep inspiration. She states pain is worse with movement. She has not had any hemoptysis. She does not have a fever. EKG done upon arrival was a sinus rhythm at 90 beats for minute with no acute changes. She was mildly tachycardic at triage and does use tobacco products so a d-dimer was ordered which is normal. She has a normal white count and hemoglobin. test is negative. Electrolytes are normal. She has a normal troponin. Chest x-ray and rib films are ordered . She was medicated emergency department with IV fluids, decadron and Toradol with improvement in her pain, on re-evaluation, she declines the need for anything else for her pain. Chest and Rib films were ordered and do not show any rib fracture or pneumonia. Due to the productive cough component of her illness, she was medicated with po doxycycline and will be discharged home with Rx for Bromfed DM, Doxycycline and naprosyn. Medical Records Data Medical records narrative: [place] [address] XRay Report Signed Patient: CHARLY FOSTER MR#: [id number] : 2000 Acct:[id number] Age/Sex: 23 / F ADM Date: 08/08/23 Loc: ER Attending Dr: Ordering Physician: Hillary Reza Date of Service: 08/08/23 Procedure(s): XR ribs RT min 3V w CXR1V Accession Number(s): [id number] cc: Judith Lindquist M.D.; Hillary Reza~ [facility] [place] [id number] Patient Name: CHARLY FOSTER MRN: [id number] date: 2000 Sex: F Assigned Patient Location: ER Current Patient Location: ED.MAIN Accession/Order Number: [id number] Exam Date: 08/08/2023 21:32 Report Date: 08/08/2023 22:54 At the request of: HILLARY REZA Procedure: XR ribs RT min 3V w CXR1V EXAM: XR ribs RT min 3V w CXR1V REASON FOR EXAM: Female, 23 years, CP. TECHNIQUE: A frontal view of the chest, additional views of the right ribs are performed. COMPARISON: 10/13/2018. FINDINGS: There is poor delineation of the right heart border, which may represent a pectus excavatum deformity. Normal pleura. Normal size heart. Normal mediastinum and zachery. Normal visualized pulmonary arteries. Normal visualized aortic arch and descending thoracic aorta. Normal visualized thoracic spine. Normal visualized ribs, clavicles, and shoulders. There is no demonstrated abnormality of the visualized soft tissue structures of the upper abdomen. XR/XR ribs RT min 3V w CXR1V IMPRESSION: Poor delineation of the right heart margin likely represents artifact from pectus excavatum deformity. This is seen on the prior chest radiograph of 10/13/2018. The lungs are otherwise clear. No right-sided rib abnormality is seen. Electronically authenticated by: REINALDO LUNA Date: 08/08/2023 22:54 Lab Data Labs: Lab Results 08/08/23 08/08/23 Range/Units 20:23 20:34 WBC 8.4 (4.0-11.0) 10^3/uL RBC 4.61 (4.20-5.40) 10^6/uL Hgb 14.2 (12.0-16.0) g/dL Hct 41.6 (36.0-48.0) % MCV 90.2 (81.0-99.0) fL MCH 30.8 (26.7-34.0) pg MCHC 34.1 (29.9-35.2) g/dL RDW 12.4 (11.0-15.0) % Plt Count 279 (150-450) 10^3/uL MPV 9.7 (9.5-13.5) fL Neut % (Auto) 65.4 (43.0-75.0) % Lymph % (Auto) 24.9 (20.5-60.0) % [place] % (Auto) 8.1 (1.7-12.0) % Eos % (Auto) 0.8 L (0.9-7.0) % Baso % (Auto) 0.6 (0.2-2.0) % Neut # (Auto) 5.5 (1.4-6.5) 10^3/uL Lymph # (Auto) 2.1 (1.2-3.8) 10^3/uL [place] # (Auto) 0.7 (0.3-0.8) 10^3/uL Eos # (Auto) 0.1 (0.0-0.7) 10^3/uL Baso # (Auto) 0.1 (0.0-0.1) 10^3/uL Abs Immat Gran (auto) 0.02 (0.00-0.03) 10^3/uL Imm/Tot Granulo (auto) 0.2 (0.0-0.5) % D-Dimer 0.22 (<=0.59) mg/L FEU Sodium 142 (136-145) mmol/L Potassium 3.6 (3.5-5.1) mmol/L Chloride 107 (98-107) mmol/L Carbon Dioxide 25.3 (21.0-32.0) mmol/L Anion Gap 13.3 BUN 9.0 (7.0-18.0) mg/dL Creatinine 0.75 (0.55-1.02) mg/dL Est GFR ( Amer) >60 (>=60) Est GFR (Non-Af Amer) >60 (>=60) BUN/Creatinine Ratio 12.0 Glucose 95 (74-106) mg/dL Calcium 8.7 (8.5-10.1) mg/dL Troponin I High Sens <4.0 L (4.0-51.3) pg/mL Urine HCG, Qual Negative (NEGATIVE) ECG Data Attestation: I personally reviewed and interpreted this ECG as follows: (Normal sinus rhythm at 90 beats for minute, normal axis, normal intervals, no acute ST segment elevation or T-wave inversion) Discharge Plan Discharge Chief Complaint: Chest Pain Clinical Impression: Chest pain, non-cardiac, Acute pleurisy without pleural effusion Patient Disposition: Home, Self-Care Time of Disposition Decision: 22:49 Condition: Good Prescriptions / Home Meds: No Action albuterol sulfate 90 mcg/actuation HFA aerosol inhaler 2 puff INHALATION Q6H PRN (Reason: shortness of breath or wheezing) buspirone 10 mg tablet 10 mg PO BID Instructions: Chest Pain (ED), Pleurisy (ED), Noncardiac Chest Pain (ED) Stand Alone Forms: Portal Instructions Referrals: Judith Lindquist MD [Primary Care Provider] - 1 week
[2023-08-08] MEDS: 0.9 % SODIUM CHLORIDE 1,000 ML 1000 ML IV (20:42)
[2023-08-08] MEDS: DEXAMETHASONE SOD PHOS 10 MG/ML VIAL IV (20:44)
[2023-08-08] MEDS: KETOROLAC TROMETHAMINE 30 MG/ML VIAL IVP (20:44)
[2023-08-08 21:01] LABS: Basophils Absolute Auto 0.1 10^3/uL (0.0-0.1); Basophils Percent Auto 0.6 % (0.2-2.0); Eosinophils Absolute Auto 0.1 10^3/uL (0.0-0.7); Eosinophils Percent Auto 0.8 % (0.9-7.0); Hematocrit 41.6 % (36.0-48.0); Hemoglobin 14.2 g/dL (12.0-16.0); Immature Granulocytes Abs Auto 0.02 10^3/uL (0.00-0.03); Immature Granulocytes Pct Auto 0.2 % (0.0-0.5); Lymphocytes Absolute Auto 2.1 10^3/uL (1.2-3.8); Lymphocytes Percent Auto 24.9 % (20.5-60.0); Mean Corpuscular HGB Conc 34.1 g/dL (29.9-35.2); Mean Corpuscular Hemoglobin 30.8 pg (26.7-34.0); Mean Corpuscular Volume 90.2 fL (81.0-99.0); Mean Platelet Volume 9.7 fL (9.5-13.5); Monocytes Absolute Auto 0.7 10^3/uL (0.3-0.8); Monocytes Percent Auto 8.1 % (1.7-12.0); Neutrophils Absolute Auto 5.5 10^3/uL (1.4-6.5); Neutrophils Percent Auto 65.4 % (43.0-75.0); Platelet Count 279 10^3/uL (150-450); Red Blood Count 4.61 10^6/uL (4.20-5.40); Red Cell Distribution Width 12.4 % (11.0-15.0); White Blood Count 8.4 10^3/uL (4.0-11.0)
[2023-08-08 21:05] LABS: HCG Qualitative Urine* NEGATIVE (NEGATIVE)
[2023-08-08 21:11] LABS: Anion Gap 13.3; Calcium 8.7 mg/dL (8.5-10.1); Carbon Dioxide 25.3 mmol/L (21.0-32.0); Chloride 107 mmol/L (98-107); Estimated GFR (African America >60 (>=60); Estimated GFR (Non-African Ame >60 (>=60); Glucose 95 mg/dL (74-106); Potassium 3.6 mmol/L (3.5-5.1); Sodium 142 mmol/L (136-145); Troponin I High Sensitivity <4.0 pg/mL (4.0-51.3)
[2023-08-08 21:26] LABS: D Dimer 0.22 mg/L FEU (<=0.59)
--- NOTE | 2023-08-08 21:28 | XR_ITS ---
The [address] [address] Patient Name: CHARLY FOSTER MRN: [id number] date: 2000 Sex: F Assigned Patient Location: ER Current Patient Location: ED.[facility] Accession/Order Number: [id number] Exam Date: 08/08/2023 21:32 Report Date: 08/08/2023 22:54 At the request of: PRANAY FAJARDO Procedure: XR ribs RT min 3V w CXR1V EXAM: XR ribs RT min 3V w CXR1V REASON FOR EXAM: Female, 23 years, CP. TECHNIQUE: A frontal view of the chest, additional views of the right ribs are performed. COMPARISON: 10/13/2018. FINDINGS: There is poor delineation of the right heart border, which may represent a pectus excavatum deformity. Normal pleura. Normal size heart. Normal mediastinum and zachery. Normal visualized pulmonary arteries. Normal visualized aortic arch and descending thoracic aorta. Normal visualized thoracic spine. Normal visualized ribs, clavicles, and shoulders. There is no demonstrated abnormality of the visualized soft tissue structures of the upper abdomen. XR/XR ribs RT min 3V w CXR1V IMPRESSION: Poor delineation of the right heart margin likely represents artifact from pectus excavatum deformity. This is seen on the prior chest radiograph of 10/13/2018. The lungs are otherwise clear. No right-sided rib abnormality is seen. Electronically authenticated by: REINALDO LUNA Date: 08/08/2023 22:54
[2023-08-08] MEDS: DOXYCYCLINE MONOHYDRATE 100 MG CAPSULE PO (22:48)
== END 2023-08-08 23:03 | disposition home or self-care (01) ==
PROVIDERS: Emergency Provider Emergency Medicine; PCP Family Medicine
DX: R07.89 Other chest pain (principal); R09.1 Pleurisy; F17.290 Nicotine dependence, other tobacco product, uncomplicated; Z79.899 Other long term (current) drug therapy
CPT/HCPCS: 36415; 71101; 80048; 84484; 84703; 85025; 85378; 93005; 96374; 96375; 99285; J1100; J1885

== ENCOUNTER 2023-10-10 16:45 | Outpatient (OUT) | payer BC, SELFPAY ==
--- OUTSIDE RECORDS SUMMARY | 2023-10-10 17:00 | XMS_ITS | CCD ---
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 Name Role Phone Pcp, No Primary Care Provider UnavailKay Howard Unavailable Sameera Martin Unavailable Judith Brothers Unavailable NAA GUERRERO Attending Unavailable DR JUDITH BROTHERS Primary Care Unavailable ANA GUERRERO Admitting Unavailable JESUSITA MARTINEZ Consulting Unavailable JES SHEIKH Consulting Unavailable DR JUDITH BROTHERS Primary Care Unavailable BERNARDINO FERRER Admitting Unavailable DR GREGORY KLEIN Consulting Unavailable BERNARDINO FERRER Attending Unavailable BERNARDINO FERRER Consulting Unavailable OMAIRA Gillette Attending Provider Sameera Stallworth Unavailable NO FAMILY, PHYSICIAN Primary Care Provider Unava ilable LALO Stallworth Attending Provider [phone] NO FAMILY, PHYSICIAN Primary Care Unavailable Sameera Stallworth Admitting Unavailable Sameera Stallworth Attending Unavailable Kay Gillette Admitting Unavailable Kay Gillette Attending Unavailable NO FAMILY, PHYSICIAN Primary Care Unavailable Allergies Allergy Classification Reported Allergen(s) Allergy Type Date of Onset Reaction(s) Facility (14 sources) Ciprofloxacin Drug Allergy very nauseous, Unknown [facility] Other (11 sources) Codeine Drug Allergy sensitive over dose as a child [facility] Other (13 sources) venlafaxine; Translations: [Effexor] Drug Allergy 09-17-19 20 swelling/shaki ng [facility] Repository (2 sources) Atenolol Drug Allergy Unknown [facility] Repository (1 source) Cefuroxime Drug Allergy [facility] Repository (2 sources) Ciprofloxacin Drug Allergy very nauseous [facility] Repository (1 source) Codeine Drug Allergy 04-21-20 13 [facility] Repository (4 sources) Iothalamate Drug Allergy 09-17-19 20 Unknown [facility] Repository (2 sources) Perazine Drug Allergy Unknown [facility] Repository (4 sources) predniSONE Drug Allergy 01-24-20 19 Unknown [facility] Repository (4 sources) Sulfamethoxazole / Trimethoprim Drug Allergy Unknown [facility] Repository (2 sources) Atenolol Drug Allergy Unknown [employer] [facility] [employer] Other (5 sources) Cefuroxime Drug Allergy 09-24-19 18 Unknown [facility] Other (3 sources) Codeine Drug Allergy Unknown [facility] Other (2 sources) rizatriptan Drug Allergy Unknown [facility] Other (2 sources) venlafaxine Drug Allergy Unknown [facility] Other (3 sources) corticosteroid and/or corticosteroid derivative (FN) Drug allergy Unknown [facility] Other (1 source) Cefuroxime Drug Allergy Unknown [facility] Other (1 source) Codeine Drug Allergy sensitive over dose as a child [facility] Other (1 source) venlafaxine Drug Allergy Unknown [facility] Other (1 source) Atenolol Drug Allergy 08-23-19 [facility] Repository (1 source) Cefuroxime Drug Allergy 08-23-19 [facility] Repository (1 source) Ciprofloxacin Drug Allergy 08-23-19 [facility] Repository (1 source) Codeine Drug Allergy 08-23-19 [facility] Repository (1 source) Corticosteroids Drug allergy (disorder) 08-23-19 [facility] Repository (1 source) Metoclopramide Drug Allergy 08-23-19 [facility] Repository (1 source) rizatriptan Drug Allergy 08-23-19 [facility] Repository (1 source) Sulfamethoxazole Drug Allergy 08-23-19 [facility] Repository (1 source) Trimethoprim Drug Allergy 08-23-19 [facility] Repository (1 source) venlafaxine Drug Allergy 08-23-19 [facility] Repository Medications Current Medications Medication Drug Class(es) Dates Sig (Normalized) Sig (Original) [id number] actuat albuterol 0.09 mg/actuat metered dose [...] Start: 09-16-2022 take 1 capsule by [facility] every eight hours Benzonatate 200 MG 1 capsule Orally Three times a day for 10 day(s) Aug, Active busPIRone hydrochloride 10 m g oral tablet (20 sources) take 1 tablet by zachary th twice daily busPIRone HCl 10 mg TAKE 1 TABLET BY MOUTH TWICE DAILY for 30 Active take 1 tablet by zachary th three times daily as needed BuSpar 5 [...] Not-Taking/PRN Start: 09-10-2022 take 1 capsule by [facility] every eight hours Amoxicillin 500 MG 1 capsule Orally three times a day for 10 day(s) Aug, Not-Taking Start: 06-14-2022 take 1 capsule by [facility] every eight hours Amoxicillin 500 MG 1 [...] PROLNG STAT/AWK PST INIT] Onset: 12-06-2022 Episodic Immunizations and screening for infectious disease [...] Classification Problem Date Documented Da te Episodic/Chronic Genitourinary symptoms and ill-defined conditions (10 sources) Dysuria; Translations: [Dysuria] Onset: 01-15-2023 Episodic Other circulatory disease (3 sources) Orthostatic hypotension; [...] (COVID-19) RNA FRANKLIN+probe Ql (Unsp spec) Negative [facility] Other COVID + FLU Quick Testing Negative [facility] Other Test, Urineon Beta HCG ( test) Ql (U) Negative [facility] Other XR hand RT min 3V*on 023 XR hand RT min 3V* [facility] Other XR hand RT min 3V* [facility] [place] [facility] Other XR hand RT min 3V* [address] [place] [address] [facility] Other XR hand RT min 3V* [place]RISTIAN Rodrigues [address] [facility] Other XR hand RT min 3V* XRay Report [facility] Other XR hand RT min 3V* Signed [facility] Other XR hand RT min 3V* Patient: Charly Foster MR#: [id number] [facility] Other XR hand RT min 3V* 1015 [facility] Other XR hand RT min 3V* : 2000 Acct:[id number] [facility] Other XR hand RT min 3V* Age/Sex: 23 / F ADM Date: 06/24/23 [facility] Other XR hand RT min 3V* Loc: XDUCLY [facility] Other XR hand RT min 3V* Attending Dr: Sameera Stallworth [facility] Other XR hand RT min 3V* Copies to: Sameera Stallworth 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 [facility] Other XR hand RT min 3V* Ordering Provider: Sameera Stallworth APRN [facility] Other XR hand RT min 3V* Date of Service: 06/24/23 [facility] Other XR hand RT min 3V* XR/XR hand RT min 3V*: Injury [facility] Other XR hand RT min 3V* 3 views right hand plain film [facility] Other XR hand RT min 3V* COMPARISON: None [facility] Other XR hand RT min 3V* HISTORY: Right hand injury [facility] Other XR hand RT min 3V* ACUTE FINDINGS: None [facility] Other XR hand RT min 3V* DEGENERATIVE CHANGE: Unremarkable [facility] Other XR hand RT min 3V* SOFT TISSUE FINDINGS : Unremarkable [facility] Other XR hand RT min 3V* JOINT EFFUSION: None [facility] Other XR hand RT min 3V* POSTOP CHANGES: None [facility] Other XR hand RT min 3V* BONY MINERALIZATION: Adequate [facility] Other XR hand RT min 3V* XR/XR hand RT min 3V* [facility] Other XR hand RT min 3V* IMPRESSION: No acute findings [facility] Other XR hand RT min 3V* Impression dictated by: Saul Staton M.D.06/24/2023 10:17 AM [facility] Other XR hand RT min 3V* Dictation Location: [place] [address] [facility] Other XR hand RT min 3V* Transcribed By: [facility] 06/24/[address] [facility]7 [facility] Other XR hand RT min 3V* Dictated By: Saul Staton DO 06/24/[address] [facility]5 [facility] Other XR hand RT min 3V* Signed By: [facility] Other XR hand RT min 3V* 06/24/[address] [place] [address] [employer] Other XR hand RT min 3V* [facility] [place] [address] [place] [address] XRay Report Signed Patient: Charly Foster MR#: [id number] 1015 : 2000 Acct:[id number] Age/Sex: 23 / F ADM Date: 06/24/23 Loc: XDUCLY [facility]: [facility]: Sameera Stallworth APRN Copies to: [...] Saul Staton M.D.06/24/2023 10:17 AM Dictation Location: [facility]--12 Transcribed By: [facility] 06/24/23 1017 Dictated By: Saul Staton DO 06/24/23 1015 Signed By: 06/24/23 1017 Normal [facility] Urinalysis - AUTOMATEDon Appearance (U) cloudy [facility] Other Bilirubin Ql (U) small [employer] Other Color (U) sameera [facility] Other Glucose Ql (U) Negative [employer] Other Hemoglobin Ql (U) large [employer] Other Ketones Ql (U) Negative [facility] Other Leukocyte esterase Test strip Ql (U) [employer] Other Nitrite Ql (U) Positive [facility] Other pH (U) 6.5 [pH] [facility] Other Protein Ql (U) >300 [employer] Other Specific gravity (U) [Rel density] >1.030 [facility] Other Urobilinogen (U) [Mass/Vol] 1.0 mg/dL [facility] Other Urinalysis - AUTOMATED [facility] Other Urine Cultureon 01-15-2023 Bacteria identified Cx Nom (U) Reason for Exam Dysuria Urine 50,000 colonies/ml mixed bacterial skin contaminants 2 Days PERFORMED BY: [facility] [place] [id number] PATHOLOGIST ENROUTE CONTROLLER YECENIA WHITE M.D. Normal [facility] Comment on above: Performed By: #### C UU #### [facility] [address] Bacteria identified Cx Nom (U) [facility] Other URon 12-02-2022 , QUAL Negative Normal NEGATIVE [facility] Comment on above: Performed By: #### P REGU #### [facility] [address] [place] [address] [address] Corie Frias XR ANKLE LT MIN [...] by: JES SHEIKH Date: 2022-12-02 19:47 Normal [facility] XR FOOT LT MIN 3 VIEWSon XR FOOT LT MIN 3 VIEWS XR FOOT LT MIN 3 VIEWS: HISTORY: Traumatic AND/OR non-traumatic injury. COMPARISON: 01/05/2022. TECHNIQUE: 3 radiographic view(s) obtained. FINDINGS: BONES/JOINT SPACES: There is no acute fracture or dislocation. Joint spaces appear normal. There are no other significant findings. SOFT TISSUES: Normal. IMPRESSION: No acute bony abnormality. Electronically authenticated by: JESShanthi SHEIKH Date: 2022-12-02 19:48 Normal [facility] COVID + FLU Quick Testingon 09-10-2022 SARS-CoV-2 (COVID-19) RNA FRANKLIN+probe Ql (Unsp spec) Negative [facility] Other COVID + FLU Quick Testing Negative [facility] Other Quick Strepon 09-10-2022 S. 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 [...] valve pr (more content not included)... Normal [facility] COVID Quick Testingon 2020 Result Negative [facility] Other Vital Signs Date Time Vital Sign Value Performing Clinician Facility 07-05-2023 18:00-0500 Body height 165.1 cm Kay Leta Other [facility] Other 07-05-2023 18:00-0500 Body mass index (BMI) [Ratio] 19.97 kg/m2 Kay Leta Other [facility] Other 07-05-2023 18:00-0500 Body temperature 99.1 [degF] Kay Leta Other [facility] Other 07-05-2023 18:00-0500 Body weight 54.43 kg Kay Leta Other [facility] Other 07-05-2023 18:00-0500 Respiratory rate 18 /min Kaytera Gillette Other [facility] Other 07-05-2023 18:00-0500 SaO2% (BldA) [Mass fraction] 99 % Kay Leta Other [facility] Other 06-24-2023 09:45-0500 Body height 165.1 cm Sameera Stallworth Other [facility] Other 06-24-2023 09:45-0500 Body mass index (BMI) [Ratio] 20.13 kg/m2 Sameera Stallworth Other [facility] Other 06-24-2023 09:45-0500 Body temperature 97.7 [degF] Sameera Stallworth Other [facility] Other 06-24-2023 09:45-0500 Body weight 54.89 kg Sameera Stallworth Other [facility] Other 06-24-2023 09:45-0500 Respiratory rate 20 /min Sameera Stallworth Other [facility] Other 06-24-2023 09:45-0500 SaO2% (BldA) [Mass fraction] 98 % Sameera Stallworth Other [facility] Other 01-15-2023 11:40-0400 Body height 165.1 cm Kay Leta Other [facility] Other 01-15-2023 11:40-0400 Body mass index (BMI) [Ratio] 19.97 kg/m2 Kay Leta Other [facility] Other 01-15-2023 11:40-0400 Body temperature 97.3 [degF] Kay Leta Other [facility] Other 01-15-2023 11:40-0400 Body weight 54.43 kg Kay Leta Other [facility] Other 01-15-2023 11:40-0400 Diastolic blood pressure 68 mm[Hg] Kay Leta Other [facility] Other 01-15-2023 11:40-0400 Respiratory rate 18 /min Kay Leta Other [facility] Other 01-15-2023 11:40-0400 SaO2% (BldA) [Mass fraction] 98 % Kay Leta Other [facility] Other 01-15-2023 11:40-0400 Systolic blood pressure 108 mm[Hg] Kay Leta Other [facility] Other 09-10-2022 18:40-0500 Body height 165.1 cm Kay Leta Other [facility] Other 09-10-2022 18:40-0500 Body mass index (BMI) [Ratio] 19.97 kg/m2 Kay Leta Other [facility] Other 09-10-2022 18:40-0500 Body temperature 98.7 [degF] Kay Leta Other [facility] Other 09-10-2022 18:40-0500 Body weight 54.43 kg Kay Leta Other [facility] Other 09-10-2022 18:40-0500 Respiratory rate 18 /min Kay Leta Other [facility] Other 09-10-2022 18:40-0500 SaO2% (BldA) [Mass fraction] 99 % Kay Leta Other [facility] Other 06-14-2022 17:25-0500 Body height 165.1 cm Kay Leta Other [facility] Other 06-14-2022 17:25-0500 Body mass index (BMI) [Ratio] 19.13 kg/m2 Kay Leta Other [facility] Other 06-14-2022 17:25-0500 Body temperature 100.7 [degF] Kay Leta Other [facility] Other 06-14-2022 17:25-0500 Body weight 52.16 kg Kay Leta Other [facility] Other 06-14-2022 17:25-0500 Respiratory rate 18 /min Kay Leta Other [facility] Other 06-14-2022 17:25-0500 SaO2% (BldA) [Mass fraction] 99 % Kay Leta Other [facility] Other 06-13-2021 15:30-0500 Body height 165.1 cm Sameera Ginty Other [facility] Other 06-13-2021 15:30-0500 Body mass index (BMI) [Ratio] 17.47 kg/m2 Sameera Ginty Other [facility] Other 06-13-2021 15:30-0500 Body temperature 97.9 [degF] Sameera Ginty Other [facility] Other 06-13-2021 15:30-0500 Body weight 47.63 kg Sameera Ginty Other [facility] Other 06-13-2021 15:30-0500 SaO2% (BldA) [Mass fraction] 98 % Sameera Ginty Other [facility] Other 04-26-2021 14:20-0400 Body height 165.1 cm Kay Gillette Other [facility] Other 04-26-2021 14:20-0400 Body mass index (BMI) [Ratio] 17.47 kg/m2 Kay Gillette Other [facility] Other 04-26-2021 14:20-0400 Body temperature 98.7 [degF] Kay Leta Other [facility] Other 04-26-2021 14:20-0400 Body weight 47.63 kg Kay Woodwardmond Other [facility] Other 04-26-2021 14:20-0400 SaO2% (BldA) [Mass fraction] 98 % Kay Leta Other [facility] Other Encounters Encounter Date Encounter Type Care Provider Facility Start: 07-05-2023 End: 07-05-2023 ambulatory Kay Gillette Other [facility] Other Start: 07-05-2023 Office outpatient visit 15 minutes Kay Gillette [facility] Start: 06-24-2023 Office outpatient visit 15 minutes Sameera Stallworth [facility] Start: 06-24-2023 End: 06-24-2023 ambulatory PHYSICIAN NO [facility] [employer] Other Start: 06-24-2023 End: 06-24-2023 Patient encounter procedure PHYSICIAN NO [facility] Work Phone: Start: 05-12-2023 (Televisit) Televisit Judith Malloy [facility] Start: 05-12-2023 End: 05-12-2023 ambulatory Judith Brothers Other [facility] Other Start: 01-17-2023 End: 01-17-2023 ambulatory Kay Gillette Other [facility] Other Start: 01-17-2023 Telephone encounter Kay Gillette [facility] Start: 01-15-2023 Office outpatient visit 15 minutes Kay Gillette [facility] Start: 01-15-2023 Telephone encounter Judith Brothers [facility] Start: 01-15-2023 End: 01-15-2023 ambulatory Kay Gillette [facility] [employer] Other Start: 01-15-2023 End: 01-15-2023 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 Facility: Start: 09-16-2022 (Televisit) Televisit Judith Malloy [facility] Start: 09-16-2022 End: 09-16-2022 ambulatory Judith Brothers Other [facility] Other Start: 09-10-2022 End: 09-10-2022 ambulatory Kay Gillette Other [facility] Other Start: 09-10-2022 Office outpatient visit 15 minutes Kaytera Gillette [facility] Start: 06-14-2022 End: 06-14-2022 ambulatory Kay Gillette Other [facility] Other Start: 06-14-2022 Office outpatient visit 15 minutes Kaytera Gillette [facility] Start: 01-05-2022 End: 01-06-[address] JUDITH BROTHERS Facility: Start: 06-13-2021 End: 06-13-2021 ambulatory Sameera Ginty Other [facility] Other Start: 06-13-2021 Office outpatient visit 15 minutes Sameera Tetenty [facility] Start: 04-26-2021 Office outpatient visit 15 minutes Kaytera Gillette [facility] Start: 10-29-2020 End: 10-29-2020 Patient encounter procedure Verito Wilkerson Work Phone: [facility] Start: 10-29-2020 Results Only Verito hua Work Phone: Gastroenterology Procedures Date Procedure Procedure Detail Performing Clinician Start: 06-24-2023 Plain X-ray of right hand PHYSICIAN NO FAMILY Start: 10-29-2020 PT ED PATIENT INFORMATION Verito Wilkerson Work Phone: Plan of Treatment Date Care Activity Detail Author Start: 01-15-2023 Bacteria identified in Urine by Culture [facility] Start: 2020 PAP TESTING PAP TESTING [facility] Start: 03-25-2020 Influenza vaccination INFLUENZA (#1) [facility] Start: 2018 Urine microalbumin profile DTAP,TDAP,TD (1 - Tdap) [facility] Start: 2017 CHLAMYDIA SCREENING (18) CHLAMYDIA SCREENING (18-) [facility] Start: 2017 GC (GONORRHEA) SCREE JARRETT (18-24) GC (GONORRHEA) SCREENING (18-) [facility] Start: 2017 HEPATITIS C SCREENING HEPATITIS C [facility] Start: 2017 HIV SCREENING HIV SCREENING [facility] Start: 2011 Adult depression screening assessment DEPRESSION SCREENING [facility] Start: 2010 HPV VACCINE (1 - 2-d ose series) HPV VACCINE (1 - 2-dose series) [facility] PT ED PATIENT INFORMATION PT ED PATIENT INFORMATION Other 10/29/2020 [facility] Immunizations Immunization Date Immunization Notes Care Provider Karl ashley 04-06-2017 meningococcal oligosaccharide (groups A, C, Y and W-135) diphtheria toxoid conjugate vaccine (MCV4O) Judith Brothers Other [facility] Other Payers Date Payer Category Payer [facility] [id number] 2023 Self-pay [id number] 2016 Unknown [employer] PPO [id number] 2016-Present PPO [id number] 1999 Unknown [id number] 1999 Unknown [id number] 1959 [facility] [id number] Private Health Insurance [facility] [id number] Unknown [id number] Unknown [id number] Unknown [id number] Social History Date Type Detail Facility Tobacco smoking status NHIS Unknown if ever smoked [facility] Start: 2000 Sex Assigned At Not on file C [facility] Sex Assigned At Sex Assigned At Bir th [facility] Other Start: 2000 Sex Assigned At Female F [facility] Clinical Notes 04-26-2021 to 07-05-2023 Note Date [...] Suspected COVID-19 virus infection (ICD-10 - Z20.822) [facility] Other 12-01-2023 Evaluation note* Encounter Date Diagnosis [...] aware. Advised follow above treatment plan recommendations [facility] Other 10-19-2023 Evaluation note* Encounter Date Diagnosis Assessment Notes Treatment Notes Treatment Clinical Notes Apr, Acute non-recurrent maxillary sinusitis (ICD-10 - J01.00) Take medication as prescribed. Humidification, saline nose spray, Neti pot suggested for sinus relief. OTC acetaminophen/ibup rofen for pain. May continue OTC decongestants/anti histamines. [facility] Other 06-24-2023 Evaluation note* Encounter Date Diagnosis [...] no improvement in 2 to 3 days. [facility] Other 02-23-2023 Evaluation note* Encounter Date Diagnosis [...] even if you start to feel better. [facility] Other 02-17-2023 Evaluation note* Encounter Date Diagnosis [...] of diseases classified elsewhere (ICD-10 - B96.89) [facility] Other 11-21-2022 Evaluation note* Encounter Date Diagnosis [...] of diseases classified elsewhere (ICD-10 - B96.89) [facility] Other 06-14-2022 NotePROCEDURE: XR ANKLE LT MIN [...] Electronically authenticated by: GREGORY KLEIN Date: 2022-01-05 16:37[facility]06-14-2022 NotePROCEDURE: XR ANKLE LT MIN 3 V, [...] Electronically authenticated by: GREGORY KLEIN Date: 2022-01-05 16:37[facility]11-20-2021 Evaluation note* Encounter Date Diagnosis Assessment Notes [...] Patient care instructions given in writting by [facility] Care At Home document [facility] Other 10-03-2021 Evaluation note* Encounter Date Diagnosis [...] Patient care instructions given in writting by [facility] Care At Home document. [facility] Other Evaluation noteNo assessment information available [facility] Work Phone: Evaluation noteNo InformationNort [employer] Other Hisntgr general Narrative - Reported* Type Description Date Medical History concaved chest Medical History acne Medical History Mitral valve prolapse Medical History anxiety Medical History chronic depression Medical History migraine headache Medical History auto immune disorder unsure of n [place] Surgical History laparoscopy Hospitalization History see above [facility] Other Hispytm general Narrative - Reported* Type Description Date Medical History concaved chest Medical History acne Medical History Mitral valve prolapse Medical History anxiety Medical History chronic depression Medical History migraine headache Medical History urticaria Surgical History laparoscopy Hospitalization History see above [facility] Other Hislzhm general Narrative - Reported* Type Description Date Medical History concaved chest Medical History acne Medical History Mitral valve prolapse Medical History anxiety Medical History chronic depression Medical History migraine headache Medical History urticaria Surgical History laparoscopy Surgical History repair ankle tendon Hospitalization History see above [facility] Other Hiscbjo general Narrative - Reported* Type Description Date Medical History concaved chest Medical History acne Medical History Mitral valve prolapse Medical History anxiety Medical History chronic depression Medical History migraine headache Medical History urticaria Medical History PCOS Surgical History laparoscopy Surgical History repair ankle tendon Hospitalization History see above [facility] Other Summary Purpose Family History No Family History Records FoundNo Family History Records FoundNo Family History Records Found Advance Directives No Advanced Directives Records Found Advance Directive Response Recorded Date/ Time Advance [...] or prosecute any alcohol or drug abuse patient.[facility] INFORMATION SOURCE (unrecogn ized section and content) DATE CREATED AUTHOR 08/21/2021 [facility] DATE CREATED AUTHOR AUTHOR'S ORGANIZ ATION 12/06/[address] [facility] DATE CREATED AUTHOR AUTHOR'S ORGANIZ ATION 09/02/2023 [facility] REASON FOR VISIT (unrecogniz ed section and content) #18 MARTIN ESCAPE, SINUS CONGE STION, COUGH#21 SORE THROAT, CONGESTIONsore throat, ear pain, migranesSORE THROAT, N/V, DIARRHEA, EARACHE, HEADACHEcongestion, deep coughpossible UTIpossible UTINo InformationNo InformationSinus [id number] RIGHT HAND SPRAINPERSISTENT COUGH// Care Teams (unrecognized sec tion and content) Team Status: Inactive Member Role Status Dates OMAIRA Ramos Attending Provider Active Team Status: Active Member Role Status Dates PHYSICIAN NO FAMILY Primary Care Provider Active Team Status: Inactive Member Role Status Dates PHYSICIAN NO FAMILY Primary Care Provider Active Sameera Stallworth APRN Attending Provider Active Goals (unrecognized [...] BE BASED ON THE PRIMARY CLINICAL RECORDS. [facility]. provides no warranty or guarantee of the accuracy or completeness of information in this document.
[2023-10-10 17:15] LABS: Basophils Absolute Auto 0.1 10^3/uL (0.0-0.1); Basophils Percent Auto 0.5 % (0.2-2.0); Eosinophils Absolute Auto 0.1 10^3/uL (0.0-0.7); Eosinophils Percent Auto 0.8 % (0.9-7.0); Hematocrit 43.6 % (36.0-48.0); Immature Granulocytes Abs Auto 0.01 10^3/uL (0.00-0.03); Immature Granulocytes Pct Auto 0.1 % (0.0-0.5); Lymphocytes Percent Auto 17.9 % (20.5-60.0); Mean Corpuscular HGB Conc 34.4 g/dL (29.9-35.2); Mean Corpuscular Hemoglobin 31.2 pg (26.7-34.0); Mean Corpuscular Volume 90.6 fL (81.0-99.0); Mean Platelet Volume 10.2 fL (9.5-13.5); Monocytes Absolute Auto 0.8 10^3/uL (0.3-0.8); Monocytes Percent Auto 6.9 % (1.7-12.0); Neutrophils Absolute Auto 8.1 10^3/uL (1.4-6.5); Neutrophils Percent Auto 73.8 % (43.0-75.0); Platelet Count 262 10^3/uL (150-450); Red Blood Count 4.81 10^6/uL (4.20-5.40); Red Cell Distribution Width 12.3 % (11.0-15.0)
[2023-10-10 17:58] LABS: Anion Gap 12.5; BUN Creatinine Ratio 12.3; Calcium 8.4 mg/dL (8.5-10.1); Carbon Dioxide 27.2 mmol/L (21.0-32.0); Chloride 104 mmol/L (98-107); Estimated GFR (African America >60 (>=60); Estimated GFR (Non-African Ame >60 (>=60); Glucose 98 mg/dL (74-106); Potassium 3.7 mmol/L (3.5-5.1); Sodium 140 mmol/L (136-145)
[2023-10-10 18:14] LABS: Erythrocyte Sedimentation Rate 4 mm/hr (<=20)
[2023-10-12 12:09] LABS: ANA Direct Negative (Negative)
== END 2023-10-10 16:46 | disposition home or self-care (01) ==
LOC: LAB 16:47
PROVIDERS: PCP Family Medicine; Visit Provider Family Medicine
DX: R53.83 Other fatigue (principal); R11.2 Nausea with vomiting, unspecified; I05.9 Rheumatic mitral valve disease, unspecified
CPT/HCPCS: 36415; 80048; 84443; 85025; 85652; 86038

== ENCOUNTER 2023-12-07 13:14 | Outpatient (OUT) | payer BC, SELFPAY ==
--- NOTE | 2023-12-07 | XR_ITS ---
The [address] [address] Patient Name: CHARLY FOSTER MRN: [id number] date: 2000 Sex: F Assigned Patient Location: Current Patient Location: Accession/Order Number: [id number] Exam Date: 12/07/2023 13:15 Report Date: 12/07/2023 14:15 At the request of: HARMAN EDEN Procedure: XR foot LT min 3V PROCEDURE: XR foot LT min 3V, XR ankle LT min 3V COMPARISON: 12/16/2022 HISTORY: LEFT FOOT PAIN FINDINGS: BONES:No fracture, acute abnormality, or significant arthropathy. SOFT TISSUES:Negative. No visible soft tissue swelling. EFFUSION:None visible. OTHER: Negative. XR/XR foot LT min 3V IMPRESSION: No acute radiographic abnormality Electronically authenticated by: NASRIN RAMIREZ Date: 12/07/2023 14:15
--- NOTE | 2023-12-07 | XR_ITS ---
[address] [address] Patient Name: CHARLY FOSTER MRN: [id number] date: 2000 Sex: F Assigned Patient Location: Current Patient Location: Accession/Order Number: [id number] Exam Date: 12/07/2023 13:15 Report Date: 12/07/2023 14:15 At the request of: HARMAN EDEN Procedure: XR ankle LT min 3V PROCEDURE: XR foot LT min 3V, XR ankle LT min 3V COMPARISON: 12/16/2022 HISTORY: LEFT FOOT PAIN FINDINGS: BONES:No fracture, acute abnormality, or significant arthropathy. SOFT TISSUES:Negative. No visible soft tissue swelling. EFFUSION:None visible. OTHER: Negative. XR/XR ankle LT min 3V IMPRESSION: No acute radiographic abnormality Electronically authenticated by: NASRIN RAMIREZ Date: 12/07/2023 14:15
--- OUTSIDE RECORDS SUMMARY | 2023-12-07 13:38 | XMS_ITS | CCD ---
Author Organization [facility] Care Team Providers Care Service Greeter Name Role Phone Pcp, No Primary Care Provider UnavailKay Howard Unavailable Adriana Martin Unavailable [employer] Unavailable ANA GUERRERO Attending Unavailable DR MONSTER BROTHERS Primary Care Unavailable ANA GUERRERO Admitting Unavailable JESUSITA MARTINEZ Consulting Unavailable JES SHEIKH Consulting Unavailable DR MONSTER BROTHERS Primary Care Unavailable BERNARDINO FERRER Admitting Unavailable DR GREGORY KLEIN Consulting Unavailable BERNARDINO FERRER Attending Unavailable BERNARDINO FERRER Consulting Unavailable OMAIRA Gillette Attending Provider [phone] Adriana Stallworth Unavailable NO FAMILY, PHYSICIAN Primary Care Provider Unava ilable LALO Stallworth Attending Provider MD [employer] Primary Care Provider DO Bentley Byrne Attending Provider [phone] LALO Bailey Attending Provider Reji Bailey Attending Unavailable [employer] Primary Care Unavailable Reji Bailey Admitting Unavailable Bentley Byrne Admitting Unavailab Bentley Boland Attending Unavailab Monster Blair Primary Care Unavailable Adriana Stallworth Admitting Unavailable Adriana Stallworth Attending Unavailable NO FAMILY, PHYSICIAN Primary Care Unavailable Kay Gillette Admitting Unavailable Kay Gillette Attending Unavailable NO FAMILY, PHYSICIAN Primary Care Unavailable Unavailable Primary Care Provider Unavailabl e YOGI-MORREN, MONSERRAT Referring Unavailable YOGI-HAILEYRENTEJASYA Attending Unavailable YOGIgnacio-MORREN, MONSERRAT Referring Unavailable Allergies Allergy Classification Reported Allergen(s) Allergy Type Date of Onset Reaction(s) Facility (20 sources) Ciprofloxacin; Translations: [CIPROFLOXACIN] Drug Allergy 02-16-20 GI Upset [facility] (19 sources) Codeine; Translations: [CODEINE] Drug Allergy 09-19-19 15 Hives, Other: See Comments [facility] (13 sources) venlafaxine; Translations: [Effexor] Drug Allergy 09-17-19 20 swelling/shaki ng [facility] Repository (8 sources) Atenolol; Translations: [ATENOLOL] Drug Allergy 10-10-19 24 [facility] (7 sources) Cefuroxime; Translations: [CEFUROXIME] Drug Allergy 10-10-19 [facility] Repository (2 sources) Ciprofloxacin Drug Allergy very nauseous [facility] Rep[facility] (1 source) Codeine Drug Allergy 04-21-20 13 [facility] Rep[facility] (4 sources) Iothalamate Drug Allergy 09-17-19 Unknown [facility] Rep[facility] (2 sources) Perazine Drug Allergy Unknown [facility] Rep[facility] (4 sources) predniSONE Drug Allergy 01-24-20 19 Unknown [facility] Rep[facility] (4 sources) Sulfamethoxazole / Trimethoprim Drug Allergy Unknown [facility] Rep[facility] (4 sources) Atenolol Drug Allergy 10-21-19 [facility] (7 sources) Cefuroxime Drug Allergy 09-24-19 [facility] [employer] [facility] [employer] Other (3 sources) Codeine Drug Allergy Unknown [employer] [facility] [employer] Other (10 sources) rizatriptan; Translations: [RIZATRIPTAN] Drug Allergy 02-16-20 [facility] (10 sources) venlafaxine; Translations: [VENLAFAXINE] Drug Allergy 02-16-20 [facility] (3 sources) corticosteroid and/or corticosteroid derivative (FN) Drug allergy Unknown [employer] [facility] [employer] Other (1 source) Cefuroxime Drug Allergy Unknown [employer] [facility] [employer] Other (1 source) Codeine Drug Allergy sensitive over dose as a child [employer] [facility] [employer] Other (1 source) venlafaxine Drug Allergy Unknown [employer] Other (9 sources) Corticosteroids; Translations: [Corticosteroids (Glucocorticoids)] Allergy to substance 10-10-19 [facility] (9 sources) Metoclopramide; Translations: [metoclopramide] Drug Allergy 02-16-20 [facility] (9 sources) Sulfamethoxazole; Translations: [sulfamethoxazole] Drug Allergy 10-10-19 [facility] (9 sources) Trimethoprim; Translations: [trimethoprim] Drug Allergy 10-10-19 [facility] (1 source) Atenolol Drug Allergy 10-21-19 [facility] (1 source) Cefuroxime Drug Allergy 10-21-19 [facility] (1 source) Ciprofloxacin Drug Allergy 10-21-19 [facility] (1 source) Codeine Drug Allergy 10-21-19 [facility] (1 source) rizatriptan Drug Allergy 10-21-19 [facility] (1 source) venlafaxine Drug Allergy 10-21-19 [facility] Rep[facility] Medications Current Medications Medication Drug Class(es) Dates Sig (Normalized) Sig (Original) [id number] actuat albuterol 0.09 mg/actuat metered dose inhaler (6 sources) beta2-Adrenergic Agonist Start: 10-07-2023 take 2 puff(s) by inhalation four times daily as needed Albuterol Sulfate Active 2 PUFF INHALATION Four times daily October 07, 2023 12:00am [employer] puffs Inhalation 4 times a day prn; Note: Source Status: Taking; Refills: 0; Provider: Leta Sloan Start: 07-05-2023 take 2 puff(s) by in halation four times daily as needed Albuterol Sulfate [...] Start: 09-16-2022 take 1 capsule by mo uth every eight hours Benzonatate 200 MG 1 capsule Orally Three times a day for 10 day(s) Aug, Active busPIRone hydrochloride 10 mg oral tablet (20 sources) Start: 11-01-2023 take 1 tablet by mouth every twelve hours busPIRone (BUSPAR) 10 mg tablet Take 1 tablet by mouth every 12 hours. 0 11/01/2023 Active Start: 10-07-2023 take 1 tablet by zachary th twice daily Buspirone Active 1 TAB PO Twice daily October 07, 2023 12:00am [employer]: TAKE 1 TABLET BY MOUTH TWICE DAILY; Note: Source Status: Taking; Refills: 2; Qty: 60 Tablet; Provider: Lexa Wnog ( ) Start: 10-07-2023 End: 10-10-2023 take 1 tablet by mouth three times daily Buspirone Discontinued 5 MG PO Three times daily October 07, 2023 12:00am October 10, 2023 1:07pm [employer] tablet Orally Three times a day; Note: Source Status: Not-Taking\PRN; Provider: Lexa Wong ( ) take 1 tablet by zachary th twice [...] as directed for 6 days May, Active ondansetron 4 mg disintegrating oral tablet (10 sources) Serotonin-3 Receptor Antagonist Start: 10-14-2023 End: 10-21-2023 take 1 tablet by mouth every eight hours as needed for nausea and vomiting ondansetron orally disintegrating (ZOFRAN ODT) 4 mg disintegrating tablet DISSOLVE 1 (ONE) TABLET ON THE TONGUE EVERY 8 HOURS NEEDED FOR NAUSEA AND VOMITING 0 11/08/2023 Active pantoprazole 40 mg delayed release oral tablet (4 sources) Proton Pump Inhibitor Start: 10-21-2023 take 1 tablet by mouth once daily Pantoprazole (Protonix) 40 mg tablet,delayed release (DR/EC) Active 40 MG PO Daily October 21, 2023 12:00am Completed/Discontinued Medications Medication Drug Class(es) Dates Sig (Normalized) Sig (Original) amoxicillin 500 mg oral capsule (10 sources) Penicillin-class Antibacterial Start: 09-10-2022 take 1 capsule by mouth every twelve hours Amoxicillin 500 MG 1 capsule Orally Twice a day for 7 days Aug, Not-Taking/PRN Start: 09-10-2022 take 1 capsule by mo [facility] every eight hours Amoxicillin 500 MG 1 capsule Orally three times a day for 10 day(s) Aug, Not-Taking Start: 06-14-2022 take 1 capsule by mo [facility] every eight hours Amoxicillin 500 MG 1 capsule Orally three times a day for 10 day(s) 21 Nov, 2022 Active cyproheptadine hydrochloride 4 mg oral tablet (12 sources) Start: 10-07-2023 End: 10-10-2023 take 4 mg by mouth once daily at bedtime Cyproheptadine Discontinued 4 MG PO Daily at bedtime October 07, 2023 12:00am October 10, 2023 1:08pm Cyproheptadine H Cl Not-Taking/PRN Cyproheptadine H Cl [...] Not-Taking/PRN phenazopyridine hydrochloride 200 mg oral tablet (12 sources) Start: 10-07-2023 End: 10-10-2023 take 1 tablet by mouth three times daily after mealtime Phenazopyridine Discontinued 1 TAB PO Three times daily October 07, 2023 12:00am October 10, 2023 1:08pm [employer] tablet after meals Orally Three times a day; Note: Source Status: Not-Taking\PRN; Provider: Leta Sloan Start: 01-15-2023 take 1 tablet by zachary th every eight hours Pyridium 200 MG 1 tablet after meals Orally Three times a day for 2 day(s) Dec, Not-Taking/PRN predniSONE 20 mg oral tablet (9 sources) Start: 09-10-2022 take 1 tablet by mouth every twelve hours predniSONE 20 MG 1 tablet Orally 2 times a day for 5 day(s) Aug, Not-Taking/PRN topiramate (10 sources) Topamax Not-Taki ng/PRN Topamax Not-Taki ng Topamax Active Problems Active Problems Problem Classification Problem Date Documented Da te Episodic/Chronic Abdominal pain (4 sources) Epigastric pain; Translations: [Dyspepsia and other specified disorders of function of stomach] 10-21-2023 Episodic Bacterial infection; unspecified site (2 sources) Other [...] PROLNG STAT/AWK PST INIT] Onset: 12-06-2022 Episodic Headache; including migraine (8 sources) Migraine; Translations: [Migraine, unspecified, not intractable, without status migrainosus] 10-10-2023 Chronic Heart valve disorders (10 sources) Mitral valve disorder; Translations: [Rheumatic mitral valve disease, unspecified] 10-10-2023 Chronic Immunizations and screening for infectious disease (14 sources) Contact with and (suspected) exposure to other viral communicable diseases; Translations: [Contact with and (suspected) exposure to other viral communicable diseases Z20.828] Onset: 04-26-2021 Resolved: 06-13-2021 Episodic Malaise and fatigue (10 sources) Fatigue; Translations: [Other fatigue] 10-10-2023 Episodic Menstrual disorders (3 sources) Missed period; Translations: [Irregular menstruation, unspecified] Chronic Nausea and vomiting (19 sources) Nausea and vomiting; Translations: [Nausea with vomiting, unspecified] Onset: 11-07-2023 10-10-2023 Episodic Other and unspecified benign neoplasm (1 source) Pituitary adenoma; Translations: [Benign neoplasm of pituitary gland] 11-23-2023 Episodic Other endocrine disorders (1 source) Hypophysitis; Translations: [Other disorders of pituitary gland] 11-16-2023 Chronic Other endocrine disorders (1 source) Disorder of pituitary gland; Translations: [Disorder of pituitary gland, unspecified] 11-23-2023 Chronic Other gastrointestinal disorders (4 sources) Celiac disease; Translations: [Celiac disease] 10-21-2023 Chronic Other gastrointestinal disorders (4 sources) Chronic constipation; Translations: [Other constipation] 10-10-2023 Episodic Other gastrointestinal disorders (4 sources) Constipation; Translations: [Constipation, unspecified] 10-21-2023 Episodic Other gastrointestinal disorders (4 sources) Other constipation; Translations: [Constipation, unspecified] 10-10-2023 Episodic Other gastrointestinal disorders (4 sources) Constipation, unspecified; Translations: [Constipation, unspecified] 10-21-2023 Episodic Other injuries and conditions due to external causes (1 source) Injury, unspecified, initial encounter Episodic Other nervous system disorders (1 source) Ataxia, unspecified; Translations: [Ataxia, unspecified] Onset: 10-27-2023 Episodic Other non-traumatic joint disorders (3 sources) Pain in left ankle and joints of left foot; Translations: [PAIN IN LEFT ANKLE] Onset: 12-02-2022 Episodic Other screening for suspected conditions (not mental disorders or infectious disease) (2 sources) Magnetic resonance imaging of brain abnormal; Translations: [Other abnormal findings on diagnostic imaging of central nervous system] 11-23-2023 Episodic Other upper respiratory disease (12 sources) Allergic rhinitis; Translations: [Allergic rhinitis, unspecified] Chronic Other upper respiratory infections (20 sources) Acute sinusitis; Translations: [Sinusitis acute] Onset: 04-26-2021 Resolved: 06-13-2021 Episodic Residual codes; unclassified (4 sources) Staring; Translations: [Transient alteration of awareness] 10-10-2023 Episodic Residual codes; unclassified (4 sources) Transient alteration of awareness; Translations: [Transient alteration of awareness] 10-10-2023 Episodic Sprains and strains (1 source) Sprain [...] Test Name Value Interpretation Reference Range Facility MR Pituitary and Sella turci ca WO and W contrast Olga 11-23-2023 IMPRESSION: No pituitary lesion. Adenohypophysis is within normal size limits for age and gender. [employer] Specialist: PSCB Transcribe Date/Time: Nov 23 2023 2:00P Dictated by : DANNIE TYLER DO This examination was interpreted and the report reviewed and electronically signed by: DANNIE TYLER DO on Nov 23 2023 2:08PM [facility] DIVISION OF RADIOLOGY * * *Final Report* * * DATE OF EXAM: Nov 23 2023 1:22PM [facility] 0314 - MRI PITUITARY WO/W IVCON / PROCEDURE REASON: multiple diagnoses * * * * Physician Interpretation * * * * EXAMINATION: MRI PITUITARY WO/W IVCON CLINICAL HISTORY: Abnormal brain MRI Pituitary adenoma (HCC) Elevated prolactin level Pituitary disorder (HCC) TECHNIQUE: High resolution sagittal and coronal T1, coronal T2, and gadolinium enhanced, fat-suppressed sagittal and coronal T1-weighted images of the pituitary region. Contrast: 5 mL Dotarem IV COMPARISON: Outside hospital brain MRI 10/27/2023 RESULT: Postop Changes: None Adenohypophysis: The pituitary gland is within normal limits of size and configuration for age and gender. The adenohypophysis is uniformly hypointense on T1 and T2 and uniformly enhances following gadolinium administration. No evidence of an underlying mass. Neurohypophysis: The posterior pituitary gland is present and normal in size and location. The infundibulum is intact and normal in appearance. Suprasellar Region: No evidence of a suprasellar mass. The optic apparatus is normal in appearance. Cavernous Sinuses: The cavernous sinuses are normal in appearance. A normal flow void is noted in the carotid siphons suggesting patency by spin echo criteria. Brain Parenchyma: The overlying hypothalamus is normal in appearance. The visualized parenchyma is otherwise normal in signal intensity and morphology. Skull Base: No evidence of a marrow replacement process in the underlying skull base. DIVISION OF RADIOLOGY Provider, Vivi cortez Jackpot - 11/23/2023 * * *Final Report* * * DATE OF EXAM: Nov 23 2023 1:22PM [facility] 0314 - MRI PITUITARY WO/W IVCON / PROCEDURE REASON: multiple diagnoses * * * * Physician Interpretation * * * * EXAMINATION: MRI PITUITARY WO/W IVCON CLINICAL HISTORY: Abnormal brain MRI Pituitary adenoma (HCC) Elevated prolactin level Pituitary disorder (HCC) TECHNIQUE: High resolution sagittal and coronal T1, coronal T2, and gadolinium enhanced, fat-suppressed sagittal and coronal T1-weighted images of the pituitary region. Contrast: 5 mL Dotarem IV COMPARISON: Outside hospital brain MRI 10/27/2023 RESULT: Postop Changes: None Adenohypophysis: The pituitary gland is within normal limits of size and configuration for age and gender. The adenohypophysis is uniformly hypointense on T1 and T2 and uniformly enhances following gadolinium administration. No evidence of an underlying mass. Neurohypophysis: The posterior pituitary gland is present and normal in size and location. The infundibulum is intact and normal in appearance. Suprasellar Region: No evidence of a suprasellar mass. The optic apparatus is normal in appearance. Cavernous Sinuses: The cavernous sinuses are normal in appearance. A normal flow void is noted in the carotid siphons suggesting patency by spin echo criteria. Brain Parenchyma: The overlying hypothalamus is normal in appearance. The visualized parenchyma is otherwise normal in signal intensity and morphology. Skull Base: No evidence of a marrow replacement process in the underlying skull base. IMPRESSION IMPRESSION: No pituitary lesion. Adenohypophysis is within normal size limits for age and gender. [employer] Specialist: PSCYadira Transcribe Date/Time: Nov 23 2023 2:00P Dictated by : DANNIE TYLER DO This examination was interpreted and the report reviewed and electronically signed by: DANNIE TYLER DO on Nov 23 2023 2:08PM [facility] Radiology Study observation (narrative) [facility] MR Pituitary and Sella turci ca WO and W contrast IVOrdered By: [facility] Provider on 11-23-2023 [facility] MRI PITUITARY WO/W IVCONon 0 11-23-2023 MRI PITUITARY WO/W IVCON * * *Final Report* * * DATE OF EXAM: Nov 23 2023 1:22PM [facility] 0314 - MRI PITUITARY WO/W IVCON / PROCEDURE REASON: multiple diagnoses * * * * Physician Interpretation * * * * EXAMINATION: MRI PITUITARY WO/W IVCON CLINICAL HISTORY: Abnormal brain MRI Pituitary adenoma (HCC) Elevated prolactin level Pituitary disorder (HCC) TECHNIQUE: High resolution sagittal and coronal T1, coronal T2, and gadolinium enhanced, fat-suppressed sagittal and coronal T1-weighted images of the pituitary region. Contrast: 5 mL Dotarem IV COMPARISON: Outside hospital brain MRI 10/27/2023 RESULT: Postop Changes: None Adenohypophysis: The pituitary gland is within normal limits of size and configuration for age and gender. The adenohypophysis is uniformly hypointense on T1 and T2 and uniformly enhances following gadolinium administration. No evidence of an underlying mass. Neurohypophysis: The posterior pituitary gland is present and normal in size and location. The infundibulum is intact and normal in appearance. Suprasellar Region: No evidence of a suprasellar mass. The optic apparatus is normal in appearance. Cavernous Sinuses: The cavernous sinuses are normal in appearance. A normal flow void is noted in the carotid siphons suggesting patency by spin echo criteria. Brain Parenchyma: The overlying hypothalamus is normal in appearance. The visualized parenchyma is otherwise normal in signal intensity and morphology. Skull Base: No evidence of a marrow replacement process in the underlying skull base. IMPRESSION: No pituitary lesion. Adenohypophysis is within normal size limits for age and gender. [employer] Specialist: [facility] HOSPITAL[facility]adira Transcribe Date/Time: Nov 23 2023 2:00P Dictated by : DANNIE TYLER DO This examination was interpreted and the report reviewed and electronically signed by: DANNIE TYLER DO on Nov 23 2023 2:08PM EST [id number] Normal [facility] Lenka 11-21-2023 PARVIZ Telephone (ENDOMN) CHARLY FOSTER ([id number]) 2000 F Date Time Provider Department 11/21/23 MONSERRAT NORTH During your visit today, we recorded the following information about you: Key Moore 11/21/2023 6:16 PM Signed Updated clinical notes from [facility] Date collected 10/19/23 Date scanned in chart 11/21/23 Key Meneses [employer] [facility] F-20 Monserrat North MD 12/01/2023 4:53 PM Signed These were reviewed prior to her appointment. Monserrat North MD., F.A.C.E. Allergies As of Date: 11/21/2023 Noted Allergy Reaction CODEINE 09/19/2014 4 - Hives 14 - Other: See Comments Comments: confusion Other Reaction(s): Unknown confusion ATENOLOL 10/21/2023 4 - Hives CEFUROXIME 10/21/2023 4 - Hives CIPROFLOXACIN 02/15/2023 8 - GI Upset Comments: Other Reaction(s): Unknown CORTICOSTEROIDS (GLUCOCORTICOIDS) 10/21/2023 4 - Hives METOCLOPRAMIDE 02/15/2023 4 - Hives Comments: Other Reaction(s): Unknown RIZATRIPTAN 02/15/2023 4 - Hives Comments: Other Reaction(s): Unknown SULFAMETHOXAZOLE 10/21/2023 4 - Hives TRIMETHOPRIM 10/21/2023 4 - Hives VENLAFAXINE 02/15/2023 4 - Hives Comments: Other Reaction(s): Unknown Date Reviewed: 11/18/2023 Reviewed by: Gil Reyes, RN - Fully Assessed Reason for Visit: Received Outside Medical Records [[id number]] Prescriptions as of 12/01/2023 - busPIRone (BUSPAR) 10 mg tablet Take 1 tablet by mouth every 12 hours. - ondansetron orally disintegrating (ZOFRAN ODT) 4 mg disintegrating tablet DISSOLVE 1 (ONE) TABLET ON THE TONGUE EVERY 8 HOURS NEEDED FOR NAUSEA AND VOMITING Problem List As Of Date: 11/21/2023 (None) Encounter Status:Closed by KEY MOORE on 11/21/23 Normal [facility] ACTH Plas-mCncon 04-25-2024 Corticotropin (P) [Mass/Vol] 7.3 pg/mL Normal 7.2-63.3 [facility] Comment on above: Order Comment: Speci men Type: BLOOD SPECIMEN Ordering Facility: [facility] Address: [address] [place] [address] Result Comment: ACTH Reference Range: 7-10 am: 7.2 - 63.3 pg/mL Performed By: #### 3 016-3 #### [facility] CLIA [id number] [address] [place] [address] [place] [facility] Cortisol [Mass/Vol] 13.5 ug/dL Normal 4.8-19.5 [facility] Comment on above: Order Comment: Speci men Type: BLOOD SPECIMEN Ordering Facility: [facility] Address: [address] [place] [address] Result Comment: Prov ided reference range is from 6-10 AM sample collection time. Cortisol Reference Range: 6-10 AM = 4.8-19.5 ug/dL, 4-8 PM = 2.5-11.9 ug/dL Performed By: #### T 4FTI, 88833-6, 2243-4, 2143-6 #### [facility] CLIA [id number] [address] [place] [address] [place] DHEA BLOODon 11-17-2023 DHEA 2.677 ng/mL Normal 1.330-7.780 [facility] Comment on above: Order Comment: Speci men Type: BLOOD SPECIMEN Ordering Facility: [facility] Address: [address] [place] [address] Result Comment: INTERPRETIVE INFORMATION: Dehydroepiandrosterone, Females 18 years and older: Postmenopausal: 0.60-5.73 ng/mL REFERENCE INTERVAL: Dehydroepiandrosterone by TMS Access complete set of age- and/or gender-specific reference intervals for this test in the [facility] Test Directory ([employer]). This test was developed and its performance characteristics determined by [employer]. It has not been cleared or approved by the [place] Food and Drug Administration. This test was performed in a CLIA certified laboratory and is intended for clinical purposes. Performed By: [employer] [address] [place] [address] Calf Skinner: Josse Gardiner MD, PhD CLIA Number: [id number] Performed By: #### 3 016-3 #### [facility] CLIA [id number] [address] [place] [address] [place] Estradiol SerPl-mCncon 11-16 E2 [Mass/Vol] 92 pg/mL Normal [facility] Comment on above: Order Comment: Speci men Type: BLOOD SPECIMEN Ordering Facility: [facility] Address: [address] [place] [address] Result Comment: This test is not suitable for patients receiving treatment with the drug Fulvestrant (Faslodex). The drug causes an interference leading to falsely elevated estradiol results. Menstrual cycle Estradiol reference ranges: Follicular : < 234 pg/mL Ovulation : 41 to 398 pg/mL Luteal : < 342 pg/mL Estradiol reference ranges vary by gestational period: First trimester : 154 to 3243 pg/mL Second trimester : 1561 to 42233 pg/mL Third trimester : 8285 to >39804 pg/mL Post-menopausal Estradiol reference range: < 41 pg/mL Reference: 1. Estradiol - E2 (Estradiol III) [package insert V 3.0 [place]]. [facility], [place], [place], December 2015. Performed By: #### T 4FTI, 22953-8, 2243-4, 2143-6 #### [facility] CLIA [id number] [address] [place] [address] [place] FSH SerPl-aCncon 11-17-2023 Follitropin Qn 4.6 m[IU]/mL Normal See comment [facility] Comment on above: Order Comment: Speci men Type: BLOOD SPECIMEN Ordering Facility: [facility] Address: [address] [place] [address] Result Comment: Refe rence range: Follicular: 3.5-12.5 mIU/mL Ovulation: 4.7-21.5 mIU/mL Luteal: 1.7-7.7 mIU/mL Postmenopausal: 25.8-134.8 mIU/mL Performed By: #### T 4FTI, 77528-6, 2243-4, 2143-6 #### [facility] CLIA [id number] [address] [place] [address] [place] INSULIN LIK GR FAC Ion 11-16 INSULIN LIK GR FAC 1 363 ng/mL High 102-317 [facility] Comment on above: Order Comment: Speci men Type: BLOOD SPECIMEN Ordering Facility: [facility] Address: [address] [place] [address] Performed By: #### 3 016-3 #### [facility] CLIA [id number] [address] [place] [address] [place] LH SerPl-aCncon 11-17-2023 Lutropin Qn 5.3 m[IU]/mL Normal See comment [facility] Comment on above: Order Comment: Speci men Type: BLOOD SPECIMEN Ordering Facility: [facility] Address: [address] [place] [address] Result Comment: Refe rence range: Follicular: 2.4-12.6 mIU/mL Midcycle: 14.0-95.6 mIU/mL Luteal: 1.0-11.4 mIU/mL Post Yulia: 7.7-58.5 mIU/mL Performed By: #### 3 024-7, 2842-3, 2839-9, 36497-5 #### [facility] CLIA [id number] [address] [place] [address] [place] Progest SerPl-mCncon 024 Progesterone [Mass/Vol] 7.9 ng/mL Normal See comment [facility] Comment on above: Order Comment: Speci men Type: BLOOD SPECIMEN Ordering Facility: [facility] Address: [address] [place] [address] Result Comment: Mens trual Cycle Progesterone Reference Ranges: Follicular: <1.0 ng/mL Ovulation: <12.1 ng/mL Luteal: 1.8 to 23.9 ng/mL. Progesterone Reference Ranges vary by gestational period: First Trimester: 11.0 to 44.3 ng/mL Second Trimester: 25.4 to 83.3 ng/mL Third Trimester: 58.7 to 214 ng/mL Post menopausal Progesterone: <0.5 ng/mL Reference: 1. Progesterone (Progesterone III) [package insert V 1.0 [place]]. [facility], [place], [place]. April 2015. Performed By: #### 3 024-7, 2842-3, 2839-9, 82909-1 #### [facility] CLIA [id number] [address] [place] [address] [place] Prolactin SerPl-mCncon 11-16 Prolactin [Mass/Vol] 75.1 ng/mL High 4.5-26.8 [facility] Comment on above: Order Comment: Speci men Type: BLOOD SPECIMEN Ordering Facility: [facility] Address: [address] [place] [address] Result Comment: Prol actin test is performed using the [employer] Electrochemiluminescence Immunoassay method. Results obtained with different methods or kits cannot be used interchangeably. Performed By: #### 3 024-7, 2842-3, 2839-9, 87429-1 #### [facility] CLIA [id number] [address] [place] [address] [place] Somatostat Plas-mCncon 11-16 Somatostatin (P) [Mass/Vol] 0.13 ng/mL Normal <3.61 [facility] Comment on above: Order Comment: Speci men Type: BLOOD SPECIMEN Ordering Facility: [facility] Address: [address] [place] [address] Performed By: #### 3 016-3 #### [facility] CLIA [id number] [address] [place] [address] [place] T4 Free SerPl-mCncon 024 Free T4 [Mass/Vol] 1.5 ng/dL Normal 0.9-1.7 [facility] Comment on above: Order Comment: Speci men Type: BLOOD SPECIMEN Ordering Facility: [facility] Address: [address] [place] [address] Performed By: #### 3 024-7, 2842-3, 2839-9, 18362-1 #### [facility] CLIA [id number] [address] [place] [address] [place] T4/FTI/T4Uon 11-17-2023 FTI 7.4 ug/dL Normal 5.3-10.8 [facility] Comment on above: Order Comment: Speci men Type: BLOOD SPECIMEN Ordering Facility: [facility] Address: [address] [place] [address] Performed By: #### T 4FTI, 89052-1, 2242-4, 6 #### [facility] CLIA [id number] [address] [place] [address] [place] T4 [Mass/Vol] 7.4 ug/dL Normal 5.5-10.2 [facility] Comment on above: Order Comment: Speci men Type: BLOOD SPECIMEN Ordering Facility: [facility] Address: [address] [place] [address] Performed By: #### T 4FTI, 20262-1, 2242-4, 6 #### [facility] CLIA [id number] [address] [place] [address] [place] T4 uptake [Mass/Vol] 1.00 Normal 0.91-1.19 [facility] Comment on above: Order Comment: Speci men Type: BLOOD SPECIMEN Ordering Facility: [facility] Address: [address] [place] [address] Performed By: #### T 4FTI, 71912-5, 2242-4, 6 #### [facility] CLIA [id number] [address] [place] [address] [place] TSH SerPl-aCncon 11-17-2023 TSH Qn 1.760 m[IU]/L Normal 0.270-4.200 [facility] Comment on above: Order Comment: Speci men Type: BLOOD SPECIMEN Ordering Facility: [facility] Address: [address] [place] [address] [place] [address] Result Comment: If t he patient is , TSH reference range varies by gestational period: First Trimester (weeks 9-12): 0.180-2.990 mIU/L Second Trimester: 0.110-3.980 mIU/L Third Trimester: 0.480-4.710 mIU/L Antonio Arias et al. A Practical Approach for the Verifications and Determination of Site- and Trimester-Specific Reference Intervals for Thyroid Function tests in . Thyroid, 2019:29:3:412-420. Massimo Howell, et al. 2017 Guidelines of the [place] Thyroid Association for the Diagnosis and Management of Thyroid Disease during and the . Thyroid, 2017:27:3:315-389. Performed By: #### 3 016-3 #### [facility] CLIA [id number] [address] [place] [address] OF [facility] CNPRajni 11-16-2023 CNPN Telephone (NSCAMN) CHARLY FOSTER ([id number]) 2000 F Date Time Provider Department 11/16/23 [facility] During your visit today, we recorded the following information about you: Gil Reyes, RN 11/16/2023 9:41 AM Signed Call placed to Charly Foster. Discussed appointment on Tuesday with Dr. North. She tells me she was referred due to abnormal MRI findings. MRI is available for review in [facility]. She has not had pituitary lab work completed. Explained lab work will help have a more productive appointment. I will place orders and she can have them completed at any [facility] lab prior to 9 am. She is going to try to have them completed tomorrow morning. Instructed to refrain from sexual activity or nipple stimulation 12 hours prior to obtaining labs. Understands not to take any steroids the morning of lab work. All questions answered at this time. Gil Reyes RN Hr Operations Advisor November 16, 2023 Allergies As of Date: 11/16/2023 (Not on File) Date Reviewed: Never Reviewed Reason for Visit: Hr Operations Advisor - Other [3602] Primary Visit Diagnosis:Hypophysitis (HCC) [E23.6] Order(s):ESTRADIOL-17B BLD [SQE2] Order #: [id number] FUTURE PROLACTIN [SQPROL] Order #: [id number] FUTURE PROGESTERONE [SQPROG] Order #: [id number] FUTURE THYROID STIMULATING HORMONE [SQTSH] Order #: [id number] FUTURE GROWTH HORMONE [SQGH] Order #: [id number] FUTURE LUTEINIZING HORMONE [SQLH] Order #: [id number] FUTURE INSULIN LIK GR FAC I [SQILGF1] Order #: [id number] FUTURE FOLLICLE STIMULATING HORMONE [SQFSH] Order #: [id number] FUTURE T4 FREE/FREE THYROXINE [SQFT4] Order #: [id number] FUTURE CORTISOL, SERUM [SQCOR] Order #: [id number] FUTURE ACTH BLD [SQACTH] Order #: [id number] FUTURE T4/FTI/T4U [NYU5WNY] Order #: [id number] FUTURE DHEA BLOOD [SQDHEA] Order #: [id number] FUTURE Problem List As Of Date: 11/16/2023 (None) Encounter Status:Closed by GIL REYES on 11/16/23 Normal [facility] FL esophagus ugion 4 FL esophagus ugi [facility] [place] [address] Fluoroscopy Report Signed Patient: Charly Foster MR#: [id number] 1015 : 2000 Acct:[id number] Age/Sex: 23 / F ADM Date: 11/07/23 Loc: XD Room: Type: [facility] Attending Dr: Reji Bailey APRN Copies to: Reji Bailey APRN Ordering Provider: Reji Bailey APRN Date of Service: 11/07/23 FL/FL esophagus ugi: R11.0 - Nausea DOUBLE CONTRAST UPPER GI SERIES CLINICAL HISTORY: Nausea, upper abdominal pain. Dysphagia. COMPARISON: None TECHNIQUE: Double contrast upper GI series was performed. Cumulative Air Kerma in mGy: 104.63 mGy FINDINGS: Cheesemaking Laborer image demonstrates no acute findings. No esophageal stricture, mass or ulcer is noted. Tertiary contractions are noted involving the distal esophagus without gastroesophageal reflux. There was occasional delay of passage of the oral contrast through the lower esophageal sphincter. Stomach is grossly unremarkable. Duodenum appears unremarkable. FL/FL esophagus ugi IMPRESSION: OCCASIONAL DELAY OF PASSAGE OF ORAL CONTRAST THROUGH THE LOWER ESOPHAGEAL SPHINCTER WITH ASSOCIATED TERTIARY CONTRACTIONS. NO ESOPHAGEAL MASS, STRICTURE OR ULCER IS NOTED. THIS CAN BE FURTHER EVALUATED BY ENDOSCOPY. Impression dictated by: Bautista Bowser Jr., D.O.11/07/2023 12:54 PM Dictation Location: [place] [address] Transcribed By: [facility] 11/07/23 1254 Dictated By: Bautista Bowser Jr, DO 11/07/23 1250 Signed By: 11/07/23 1254 Normal [facility] MR head/brain wo/w cheryl MR head/brain wo/w con [facility] [place] [address] MRI Report Signed Patient: Charly Foster MR#: [id number] 1015 : 2000 Acct:[id number] Age/Sex: 23 / F ADM Date: 10/27/23 Loc: MR Room: Type: [facility] Attending Dr: Bentley Byrne DO Copies to: Bentley Byrne DO Ordering Provider: Bentley Byrne DO Date of Service: 10/27/23 MR/MR head/brain wo/w con: R41.89 MR head/brain wo/w con 10/27/2023 6:51 PM SIGN AND SYMPTOMS: Dizziness, hand numbness bilaterally PROTOCOL: Multiplanar multisequence MR images of the brain were obtained with and without IV contrast. CONTRAST: 10 mL of intravenous ProHance COMPARISON: 08/11/2019 FINDINGS: Extra axial spaces: Age appropriate. Hemorrhage: None. Ventricular system: Within normal limits. Basal cisterns: Within normal limits and not effaced. Cerebral parenchyma: Normal in signal. Midline shift: None.. Cerebellum: Within normal limits. Brainstem: Within normal limits. OTHER: Calvarium: Normal marrow signal. Vascular system: Satisfactory flow voids within the anterior and posterior circulation. Visualized Paranasal sinuses: Within normal limits. Visualized Orbits: Within normal limits. Visualized upper cervical spine: Within normal limits. Sella and skull base: Pituitary is prominent within the sella. There is also prominence of the pituitary stalk. This is nonspecific. Correlation with clinical signs of hypophysitis is recommended. MR/MR head/brain wo/w con IMPRESSION: Pituitary is prominent within the sella. There is also prominence of the pituitary stalk. This is nonspecific. Correlation with clinical signs of hypophysitis is recommended. The brain parenchyma is within normal limits otherwise. Impression dictated by: Puneet Patrick M.D.10/27/2023 7:53 PM Dictation Location: [place] [address] Transcribed By: [facility] 10/27/231952 Dictated By: Puneet Patrick II, MD 10/27/231944 Signed By: 10/27/231952 Normal [facility] Basophils Auto (Bld) [#/Vol] on 10-10-2023 Basophils (Bld) [#/Vol] 0.1 10 3/uL 0.0-0.1 [facility] Basophils/100 WBC Auto (Bld) on 10-10-2023 Basophils/100 WBC (Bld) 0.5 % 0.2-2.0 [facility] Eosinophils/100 WBC Auto (Bl d)on 10-10-2023 Eosinophils/100 WBC (Bld) 0.8 % 0.9-7.0 [facility] Erythrocyte distribution wid th Auto (RBC) [Ratio]on 10-10-2023 Erythrocyte distribution width (RBC) [Ratio] 12.3 % 11.0-15.0 [facility] Estimated glomerular filtrat ion rate (GFR) non- Americanon 10-10-2023 GFR/1.73 sq M.predicted among non-blacks MDRD (S/P/Bld) [Vol rate/Area] mL/min/{1.73_m2} >=60 [facility] Hematocrit Auto (Bld) [Volum e fraction]on 10-10-2023 Hematocrit (Bld) [Volume fraction] 43.6 % 36.0-48.0 [facility] Hemoglobin [Mass/volume] in Bloodon 10-10-2023 Hemoglobin (Bld) [Mass/Vol] 15.0 g/dL 12.0-16.0 [facility] Laboratory - Chemistry and C hemistry - challengeon 10-10-2023 Calcium [Mass/Vol] 8.4 mg/dL 8.5-10.1 [facility] Chloride [Moles/Vol] 104 mmol/L 98-107 [facility] CO2 [Moles/Vol] 27.2 mmol/L 21.0-32.0 [facility] Creatinine [Mass/Vol] 0.81 mg/dL 0.55-1.02 [facility] GFR/1.73 sq M.predicted MDRD (S/P/Bld) [Vol rate/Area] mL/min/{1.73_m2} >=60 [facility] Glucose [Mass/Vol] 98 mg/dL 74-106 [facility] Potassium [Moles/Vol] 3.7 mmol/L 3.5-5.1 [facility] Sodium [Moles/Vol] 140 mmol/L 136-145 [facility] TSH Qn 0.840 m[IU]/L 0.358-3.740 [facility] Urea nitrogen [Mass/Vol] 10.0 mg/dL 7.0-18.0 [facility] Urea nitrogen/Creatinin e [Mass ratio] 12.3 mg/mg [facility] Laboratory - Hematology and Cell countson 10-10-2023 ESR (Bld) [Velocity] 4 mm/h <=20 [facility] Immature granulocytes/100 WBC (Bld) 0.1 % 0.0-0.5 [facility] Leukocytes [#/volume] correc jeri for nucleated erythrocytes in Blood by Automated counon 10-10-2023 WBC corrected for nucl RBC Auto (Bld) [#/Vol] 11.0 10 3/uL 4.0-11.0 [facility] Lymphocytes Auto (Bld) [#/Vo l]on 10-10-2023 Lymphocytes (Bld) [#/Vol] 2.0 10 3/uL 1.2-3.8 [facility] Lymphocytes/100 WBC Auto (Bl d)on 10-10-2023 Lymphocytes/100 WBC (Bld) 17.9 % 20.5-60.0 [facility] MCH Auto (RBC) [Entitic mass ]on 10-10-2023 MCH (RBC) [Entitic mass] 31.2 pg 26.7-34.0 [facility] MCHC Auto (RBC) [Mass/Vol]on 10-10-2023 MCHC (RBC) [Mass/Vol] 34.4 g/dL 29.9-35.2 [facility] MCV Auto (RBC) [Entitic vol] on 10-10-2023 MCV (RBC) [Entitic vol] 90.6 fL 81.0-99.0 [facility] Monocytes Auto (Bld) [#/Vol] on 10-10-2023 Monocytes (Bld) [#/Vol] 0.8 10 3/uL 0.3-0.8 [facility] Monocytes/100 WBC Auto (Bld) on 10-10-2023 Monocytes/100 WBC (Bld) 6.9 % 1.7-12.0 [facility] Neutrophils Auto (Bld) [#/Vo l]on 10-10-2023 Neutrophils (Bld) [#/Vol] 8.1 10 3/uL 1.4-6.5 [facility] Neutrophils/100 WBC Auto (Bl d)on 10-10-2023 Neutrophils/100 WBC (Bld) 73.8 % 43.0-75.0 [facility] No Panel Informationon 10-09 Eosinophils # (Auto) 0.1 10 3/uL 0.0-0.7 [facility] Immature Granulocyte # (Auto) 0.01 10 3/uL 0.00-0.03 [facility] Platelet mean volume Auto (B ld) [Entitic vol]on 10-10-2023 Platelet mean volume (Bld) [Entitic vol] 10.2 fL 9.5-13.5 [facility] Platelets Auto (Bld) [#/Vol] on 10-10-2023 Platelets (Bld) [#/Vol] 262 10 3/uL 150-450 [facility] RBC Auto (Bld) [#/Vol]on RBC (Bld) [#/Vol] 4.81 10 6/uL 4.20-5.[address] [facility] Serum or plasma anion gap de terminationon 10-10-2023 Anion gap [Moles/Vol] 12.5 mmol/L [facility] Serum or plasma free cefurox madeline measurement (mass/volume)on 10-10-2023 Cefuroxime free [Mass/Vol] Negative Negative [facility] Comment on above: Performed at: [address] Director: Garret Bledsoe PhD, Phone: [phone] COVID + FLU Quick Testingon 07-05-2023 SARS-CoV-2 (COVID-19) RNA FRANKLIN+probe Ql (Unsp spec) Negative [facility] Other COVID + FLU Quick Testing Negative [facility] Other Test, Urineon Beta HCG ( test) Ql (U) Negative [facility] Other XR hand RT min 3V*on 023 XR hand RT min 3V* [facility] Other XR hand RT min 3V* [facility] [place] [facility] Other XR hand RT min 3V* [address] [place] [address] [facility] Other XR hand RT min 3V* [place] [address] [facility] Other XR hand RT min 3V* XRay Report [facility] Other XR hand RT min 3V* Signed [facility] Other XR hand RT min 3V* Patient: Milan Foster MR#: [id number] [facility] Other XR hand RT min 3V* 1015 [facility] Other XR hand RT min 3V* : 2000 Acct:[id number] [facility] Other XR hand RT min 3V* Age/Sex: 23 / F ADM Date: 06/24/23 [facility] Other XR hand RT min 3V* Loc: XDUCLY Room: pe: REG CLI [facility] Other XR hand RT min 3V* Attending Dr: Adriana Stallworth [facility] Other XR hand RT min 3V* Copies to: Adriana silva [facility] Other XR hand RT min 3V* Ordering Provider: Luther Stallworth [facility] Other XR hand RT min 3V* Date of Service: 06/24/23 [facility] Other XR hand RT min 3V* 12020) XR/XR hand RT min 3V*: Injury [facility] Other XR hand RT min 3V* 3 views right hand p lucila film [facility] Other XR hand RT min 3V* COMPARISON: None [facility] Other XR hand RT min 3V* HISTORY: Right hand injury [facility] Other XR hand RT min 3V* ACUTE FINDINGS: None [facility] Other XR hand RT min 3V* DEGENERATIVE CHANGE: Unremarkable [facility] Other XR hand RT min 3V* SOFT TISSUE FINDINGS : Unremarkable [facility] Other XR hand RT min 3V* JOINT EFFUSION: None [facility] Other XR hand RT min 3V* POSTOP CHANGES: None [facility] Other XR hand RT min 3V* BONY MINERALIZATION: Adequate [facility] Other XR hand RT min 3V* X R/XR hand RT min 3V* [facility] Other XR hand RT min 3V* IMPRESSION: No acute findings [facility] Other XR hand RT min 3V* Impression dictated by: Saul Staton M.D.06/24/2023 10:17 AM [facility] Other XR hand RT min 3V* Dictation Location: [place] [address] [facility] Other XR hand RT min 3V* Transcribed By: [facility] 06/24/23 [facility] Other XR hand RT min 3V* Dictated By: Yung Staton DO 06/24/23 [facility] [place] [employer] Other XR hand RT min 3V* Signed By: [facility] Other XR hand RT min 3V* 06/24/[address] [place] [address] [employer] Other XR hand RT min 3V* [facility] [place] [address] [place] [address] XRay Report Signed Patient: Charly Foster MR#: [id number] 1015 : 2000 Acct:[id number] Age/Sex: 23 / F ADM Date: 06/24/23 Loc: XDUCLY Room: Type: [facility] Attending Dr: Adriana Stallworth APRN Copies to: Adriana Stallworth APRN Ordering Provider: Adriana Stallworth APRN Date of Service: 06/24/23 XR/XR hand RT min 3V*: Injury 3 views right hand plain film COMPARISON: None HISTORY: Right hand injury ACUTE FINDINGS: None DEGENERATIVE CHANGE: Unremarkable SOFT TISSUE FINDINGS: Unremarkable JOINT EFFUSION: None POSTOP CHANGES: None BONY MINERALIZATION: Adequate XR/XR hand RT min 3V* IMPRESSION: No acute findings Impression dictated by: Saul Staton M.D.06/24/2023 10:17 AM Dictation Location: [facility] Transcribed By: [facility] 06/24/23 1017 Dictated By: Saul Staton DO 06/24/23 1015 Signed By: 06/24/23 1017 Normal [facility] Urinalysis - AUTOMATEDon Appearance (U) cloudy [employer] Other Bilirubin Ql (U) small [employer] Other Color (U) adriana [facility] Other Glucose Ql (U) Negative [employer] Other Hemoglobin Ql (U) large [employer] Other Ketones Ql (U) Negative [employer] Other Leukocyte esterase Test strip Ql (U) large [facility] Other Nitrite Ql (U) Positive [employer] Other pH (U) 6.5 [pH] [facility] Other Protein Ql (U) >300 [employer] Other Specific gravity (U) [Rel density] >1.030 [facility] Other Urobilinogen (U) [Mass/Vol] 1.0 mg/dL [facility] Other Urinalysis - AUTOMATED [facility] Other Urine Cultureon 01-15-2023 Bacteria identified Cx Nom (U) Reason for Exam Dysuria Urine 50,000 colonies/ml mixed bacterial skin contaminants 2 Days PERFORMED BY: [facility] [address] [place] [address] PATHOLOGIST STORE CUSTODIAN YECENIA WHITE M.D. Normal [facility] Comment on above: Performed By: #### C UU #### [facility] [address] Bacteria identified Cx Nom (U) [facility] Other URon 12-02-2022 , QUAL Negative Normal NEGATIVE The [facility] Comment on above: Performed By: #### P REGU #### [facility] [address] [place] [address] [address] Corie Frias XR ANKLE LT MIN [...] No acute bony abnormality. Electronically authenticated by: [employer] Date: 2022-12-02 19:47 Normal [facility] XR FOOT LT MIN 3 VIEWSon XR FOOT LT MIN 3 VIEWS XR FOOT LT MIN 3 VIEWS: HISTORY: Traumatic AND/OR non-traumatic injury. COMPARISON: 01/05/2022. TECHNIQUE: 3 radiographic view(s) obtained. FINDINGS: BONES/JOINT SPACES: There is no acute fracture or dislocation. Joint spaces appear normal. There are no other significant findings. SOFT TISSUES: Normal. IMPRESSION: No acute bony abnormality. Electronically authenticated by: [employer] Date: 2022-12-02 19:48 Normal [facility] COVID + FLU Quick Testingon 09-10-2022 SARS-CoV-2 (COVID-19) RNA FRANKLIN+probe Ql (Unsp spec) Negative [facility] Other COVID + FLU Quick Testing Negative [facility] Other Quick Strepon 09-10-2022 S. pyogenes Org specific cx Ql (Throat) Negative [facility] [employer] Other Quick Strep [facility] Other COVID/FLU RT-PCRon 2 SARS-CoV-2 (COVID-19) RNA FRANKLIN+probe Ql (Unsp spec) Negative [facility] [employer] Other COVID/FLU RT-PCR Negative [facility] [employer] Other Progress Noteon 08-20-2021 [employer] Authentication Interface Message Text Previous Diagnoses: 1. [...] symptoms, breathing difficulties or shortness of breath, fever/vomiting/diarrhea, rashes or joint pain/swelling. All other systems [...] valve pr (more content not included)... Normal [facility] COVID Quick Testingon 2020 Result Negative [facility] Other Vital Signs Date Time Vital Sign Value Performing Clinician Facility 12-05-2023 10:52-0400 Body height 165.1 cm MD [employer] Work Phone: [facility] 12-05-2023 10:52-0400 Body mass index (BMI) [Ratio] 17.9 kg/m2 MD [employer] Work Phone: [facility] 12-05-2023 10:52-0400 Body weight 48.7 kg MD [employer] Work Phone: [facility] 12-05-2023 10:52-0400 Diastolic blood pressure 73 mm[Hg] MD [employer] Work Phone: [facility] 12-05-2023 10:52-0400 Heart rate 109 /min MD [employer] Work Phone: [facility] 12-05-2023 10:52-0400 Systolic blood pressure 102 mm[Hg] MD [employer] Work Phone: [facility] 10-21-2023 09:33-0400 Body height 165.1 cm [facility] 10-21-2023 09:33-0400 Body mass index (BMI) [Ratio] 18.3 kg/m2 [facility] 10-21-2023 09:33-0400 Body weight 49.89 kg [facility] 10-10-2023 13:00-0400 Body height 165.1 cm [facility] 10-10-2023 13:00-0400 Body mass index (BMI) [Ratio] 18.1 kg/m2 [facility] 10-10-2023 13:00-0400 Body weight 49.44 kg [facility] 10-10-2023 13:00-0400 Diastolic blood pressure 78 mm[Hg] [facility] 10-10-2023 13:00-0400 Heart rate 76 /min [facility] 10-10-2023 13:00-0400 Systolic blood pressure 112 mm[Hg] [facility] 08-23-2023 11:30-0500 Body height 165.1 cm [facility] 08-23-2023 11:30-0500 Body weight 50.71 kg [facility] 08-23-2023 11:30-0500 Diastolic blood pressure 73 mm[Hg] [facility] 08-23-2023 11:30-0500 Systolic blood pressure 102 mm[Hg] [facility] 07-05-2023 18:00-0500 Body height 165.1 cm Kay [facility] Other [facility] Other 07-05-2023 18:00-0500 Body mass index (BMI) [Ratio] 19.97 kg/m2 Kay [facility] Other [facility] Other 07-05-2023 18:00-0500 Body temperature 99.1 [degF] Kay [facility] Other [facility] Other 07-05-2023 18:00-0500 Body weight 54.43 kg Kay Gillette Other [facility] Other 07-05-2023 18:00-0500 Respiratory rate 18 /min Kay Woodwardmond Other [facility] Other 07-05-2023 18:00-0500 SaO2% (BldA) [Mass fraction] 99 % Kay Woodwardmond Other [facility] Other 06-24-2023 09:45-0500 Body height 165.1 cm Adriana Stallworth Other [facility] Other 06-24-2023 09:45-0500 Body mass index (BMI) [Ratio] 20.13 kg/m2 Adriana Stallworth Other [facility] Other 06-24-2023 09:45-0500 Body temperature 97.7 [degF] Adriana Stallworth Other [facility] Other 06-24-2023 09:45-0500 Body weight 54.89 kg Adriana Stallworth Other [facility] Other 06-24-2023 09:45-0500 Respiratory rate 20 /min Adriana Basim Other [facility] Other 06-24-2023 09:45-0500 SaO2% (BldA) [Mass fraction] 98 % Adriana Stallworth Other [facility] Other 01-15-2023 11:40-0400 Body height 165.1 cm Kay Leta Other [facility] Other 01-15-2023 11:40-0400 Body mass index (BMI) [Ratio] 19.97 kg/m2 Kay Leta Other [facility] Other 01-15-2023 11:40-0400 Body temperature 97.3 [degF] Kay Leta Other [facility] Other 01-15-2023 11:40-0400 Body weight 54.43 kg Kay Leta Other [facility] Other 01-15-2023 11:40-0400 Diastolic blood pressure 68 mm[Hg] Kay Leta Other [facility] Other 01-15-2023 11:40-0400 Respiratory rate 18 /min Kay Leta Other [facility] Other 01-15-2023 11:40-0400 SaO2% (BldA) [Mass fraction] 98 % Kay Leta Other [facility] Other 01-15-2023 11:40-0400 Systolic blood pressure 108 mm[Hg] Kay Leta Other [facility] Other 09-10-2022 18:40-0500 Body height 165.1 cm Kay Leta Other [facility] Other 09-10-2022 18:40-0500 Body mass index (BMI) [Ratio] 19.97 kg/m2 Kay Leta Other [facility] Other 09-10-2022 18:40-0500 Body temperature 98.7 [degF] Kay Leta Other [facility] Other 09-10-2022 18:40-0500 Body weight 54.43 kg Kay Leta Other [facility] Other 09-10-2022 18:40-0500 Respiratory rate 18 /min Kay Leta Other [facility] Other 09-10-2022 18:40-0500 SaO2% (BldA) [Mass fraction] 99 % Kay Leta Other [facility] Other 06-14-2022 17:25-0500 Body height 165.1 cm Kay Leta Other [facility] Other 06-14-2022 17:25-0500 Body mass index (BMI) [Ratio] 19.13 kg/m2 Kay Leta Other [facility] Other 06-14-2022 17:25-0500 Body temperature 100.7 [degF] Kay Leta Other [facility] Other 06-14-2022 17:25-0500 Body weight 52.16 kg Kay Leta Other [facility] Other 06-14-2022 17:25-0500 Respiratory rate 18 /min Kay Leta Other [facility] Other 06-14-2022 17:25-0500 SaO2% (BldA) [Mass fraction] 99 % Kay Leta Other [facility] Other 06-13-2021 15:30-0500 Body height 165.1 cm Adriana Martin Other [facility] Other 06-13-2021 15:30-0500 Body mass index (BMI) [Ratio] 17.47 kg/m2 Adriana Ginty Other [facility] Other 06-13-2021 15:30-0500 Body temperature 97.9 [degF] Adriana Ginty Other [facility] Other 06-13-2021 15:30-0500 Body weight 47.63 kg Adriana Ginty Other [facility] Other 06-13-2021 15:30-0500 SaO2% (BldA) [Mass fraction] 98 % Adriana Ginty Other [facility] Other 04-26-2021 14:20-0400 Body height 165.1 cm Kay Leta Other [facility] Other 04-26-2021 14:20-0400 Body mass index (BMI) [Ratio] 17.47 kg/m2 Kay Leta Other [facility] Other 04-26-2021 14:20-0400 Body temperature 98.7 [degF] Kay Leta Other [facility] Other 04-26-2021 14:20-0400 Body weight 47.63 kg Kay Leta Other [facility] Other 04-26-2021 14:20-0400 SaO2% (BldA) [Mass fraction] 98 % Kay Leta Other [facility] Other Encounters Encounter Date Encounter Type Care Provider Facility Start: 12-05-2023 End: 12-05-2023 ambulatory MD [facility] Work Phone: [facility] Work Phone: Start: 12-05-2023 End: 12-05-2023 Patient encounter procedure MD [facility] Work Phone: [facility] Physician [facility] Work Phone: Start: 11-23-2023 End: 11-23-2023 ambulatory MONSERRAT NORTH Facility:[facility] Start: 11-23-2023 End: 11-23-2023 Subsequent hospital visit by physician Mri [facility] (Lg Bore/1.5t) Radiology MRI Comment on above: Abnormal brain MRI [ R90.89] Start: 11-21-2023 Telephone encounter Monserrat Sparrow MD Work Phone: Endocrinology Comment on above: Received Outside Med ical Records Start: 11-18-2023 End: 11-18-2023 ambulatory MONSERRAT NORTH Facility:[facility] Start: 11-17-2023 End: 11-17-2023 ambulatory MONSERRAT STEWARTSAMMIE Facility:[facility] Start: 11-16-2023 Telephone encounter Monserrat Sparrow MD Work Phone: [facility] [place] Comment on above: 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 Start: 11-07-2023 End: 11-07-2023 ambulatory Reji Bailey Facility:[facility] Start: 11-07-2023 End: 11-07-2023 ambulatory MD [facility] Work Phone: [facility] Work Phone: Start: 11-07-2023 End: 11-07-2023 Patient encounter procedure MD [facility] Work Phone: [facility] [place] Work Phone: Start: 10-27-2023 End: 10-27-2023 ambulatory Bentley Byrne Facility:[facility] Start: 10-27-2023 End: 10-27-2023 ambulatory MD [facility] Work Phone: [facility] Work Phone: Start: 10-27-2023 End: 10-27-2023 Patient encounter procedure MD [facility] Work Phone: [facility] [place] Work Phone: Start: 10-21-2023 End: 10-21-2023 ambulatory [facility] Work Phone: Start: 10-21-2023 End: 10-21-2023 Patient encounter procedure [facility] Physician Group-[facility] Gastroenterology Work Phone: Start: 10-10-2023 End: 10-10-2023 ambulatory [facility] Work Phone: Start: 10-10-2023 End: 10-10-2023 Patient encounter procedure [facility] Physician Group-[facility] Work Phone: Start: 08-23-2023 End: 08-23-2023 Patient encounter procedure [facility] Physician Group- Start: 07-05-2023 End: 07-05-2023 ambulatory Kay Gillette Other [facility] Other Start: 07-05-2023 Office outpatient visit 15 minutes Kay Gillette [facility] Start: 06-24-2023 Office outpatient visit 15 minutes Adriana Stallworth [facility] Start: 06-24-2023 End: 06-24-2023 ambulatory PHYSICIAN NO [facility] [employer] Other Start: 06-24-2023 End: 06-24-2023 Patient encounter procedure PHYSICIAN NO [facility] Work Phone: Start: 05-12-2023 (Televisit) Televisit [facility] Start: 05-12-2023 End: 05-12-2023 ambulatory [facility] Other [facility] Other Start: 01-17-2023 End: 01-17-2023 ambulatory Kay Leta Other [facility] Other Start: 01-17-2023 Telephone encounter Kay Woodwardmond [facility] Start: 01-15-2023 Office outpatient visit 15 minutes Kay Leta [facility] Start: 01-15-2023 Telephone encounter [facility] Start: 01-15-2023 End: 01-15-2023 ambulatory Kay Leta [facility] [employer] Other Start: 01-15-2023 End: 01-15-2023 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 Facility:[facility] Start: 09-16-2022 (Televisit) Televisit [facility] Start: 09-16-2022 End: 09-16-2022 ambulatory [facility] Other [facility] Other Start: 09-10-2022 End: 09-10-2022 ambulatory Kay Woodwardmond Other [facility] Other Start: 09-10-2022 Office outpatient visit 15 minutes Kay Leta [facility] Start: 06-14-2022 End: 06-14-2022 ambulatory Kay Leta Other [facility] Other Start: 06-14-2022 Office outpatient visit 15 minutes Kay Leta [facility] Start: 01-05-2022 End: 01-06-[address] [facility] Facility:[facility] Start: 06-13-2021 End: 06-13-2021 ambulatory Adriana Martin Other [place] [employer] Other Start: 06-13-2021 Office outpatient visit 15 minutes Adriana Martin [facility] Start: 04-26-2021 Office outpatient visit 15 minutes Kay Gillette [facility] Start: 10-29-2020 End: 10-29-2020 Patient encounter procedure Verito Wilkerson Work Phone: [facility] Start: 10-29-2020 Results Only Veritolory hua Work Phone: Gastroenterology Procedures Date Procedure Procedure Detail Performing Clinician Start: 11-23-2023 Mri brain brain stem w/o w/contrast material Monserrat North MD Work Phone: Start: 10-27-2023 MRI of head MD [facility] Work Phone: Start: 06-24-2023 Plain X-ray of right hand PHYSICIAN NO FAMILY Start: 10-29-2020 PT ED PATIENT INFORMATION Veritoerika Wilkerson Work Phone: Plan of Treatment Date Care Activity Detail Author Start: 03-25-2024 Influenza vaccination Influenza Vaccine (Season Ended) [facility] Start: 12-09-2023 End: 12-09-2023 ambulatory 12/09/2023 3:00 PM EDT [facility] Neurology [address] [id number] Suzette Mondragon MD [address] [place], [place] [id number] Generalized weakness [R53.1]; Generalized pain [R52]; Gait instability [R26.81]; Generalized abdominal pain Neurology Comment on above: Generalized weakness [R53.1]; Generalize d pain [R52]; Gait instability [R26.81]; Generalized abdominal pain Start: 11-23-2023 End: 11-15-2024 Corticotropin [Mass/volume] in Plasma ACTH BLD Lab Routine Hypophysitis (HCC) Expected: 11/23/2023 (Approximate), Expires: 11/15/2024 [facility] Comment on above: Expected: 11/23/2023 (Approximate), Expi res: 11/15/2024 Start: 11-23-2023 End: 11-15-2024 Cortisol [Mass/volume] in Serum or Plasma CORTISOL, SERUM Lab Routine Hypophysitis ([facility]) Expected: 11/23/2023 (Approximate), Expires: 11/15/2024 [facility] Comment on above: Expected: 11/23/2023 (Approximate), Expi res: 11/15/2024 Start: 11-23-2023 End: 02-22-2024 Dehydroepiandrosterone (DHEA) [Mass/volume] in Serum or Plasma DHEA BLOOD Lab Routine Hypophysitis ([facility]) Expected: 11/23/2023 (Approximate), Expires: 02/22/2024 [facility] Comment on above: Expected: 11/23/2023 (Approximate), Expi res: 02/22/2024 Start: 11-23-2023 End: 11-15-2024 Estradiol (E2) [Mass/volume] in Serum or Plasma ESTRADIOL-17B BLD Lab Routine Hypophysitis ([facility]) Expected: 11/23/2023 (Approximate), Expires: 11/15/2024 [facility] Work Phone: Comment on above: Expected: 11/23/2023 (Approximate), Expi res: 11/15/2024 Start: 11-23-2023 End: 11-15-2024 Follitropin [Units/volume] in Serum or Plasma FOLLICLE STIMULATING HORMONE Lab Routine Hypophysitis ([facility]) Expected: 11/23/2023 (Approximate), Expires: 11/15/2024 [facility] Comment on above: Expected: 11/23/2023 (Approximate), Expi res: 11/15/2024 Start: 11-23-2023 End: 11-15-2024 INSULIN LIK GR FAC I INSULIN LIK GR FAC I Lab Routine Hypophysitis ([facility]) Expected: 11/23/2023 (Approximate), Expires: 11/15/2024 [facility] Comment on above: Expected: 11/23/2023 (Approximate), Expi res: 11/15/2024 Start: 11-23-2023 End: 11-15-2024 Lutropin [Units/volume] in Serum or Plasma LUTEINIZING HORMONE Lab Routine Hypophysitis ([facility]) Expected: 11/23/2023 (Approximate), Expires: 11/15/2024 [facility] Comment on above: Expected: 11/23/2023 (Approximate), Expi res: 11/15/2024 Start: 11-23-2023 End: 11-15-2024 Progesterone [Mass/volume] in Serum or Plasma PROGESTERONE Lab Routine Hypophysitis ([facility]) Expected: 11/23/2023 (Approximate), Expires: 11/15/2024 [facility] Comment on above: Expected: 11/23/2023 (Approximate), Expi res: 11/15/2024 Start: 11-23-2023 End: 11-15-2024 Prolactin [Mass/volume] in Serum or Plasma PROLACTIN Lab Routine Hypophysitis ([facility]) Expected: 11/23/2023 (Approximate), Expires: 11/15/2024 [facility] Comment on above: Expected: 11/23/2023 (Approximate), Expi res: 11/15/2024 Start: 11-23-2023 End: 11-15-2024 Somatostatin [Mass/volume] in Plasma GROWTH HORMONE Lab Routine Hypophysitis ([facility]) Expected: 11/23/2023 (Approximate), Expires: 11/15/2024 [facility] Comment on above: Expected: 11/23/2023 (Approximate), Expi res: 11/15/2024 Start: 11-23-2023 End: 11-15-2024 T4/FTI/T4U T4/FTI/T4U Lab Routine Hypophysitis ([facility]) Expected: 11/23/2023 (Approximate), Expires: 11/15/2024 [facility] Comment on above: Expected: 11/23/2023 (Approximate), Expi res: 11/15/2024 Start: 11-23-2023 End: 11-15-2024 Thyrotropin [Units/volume] in Serum or Plasma THYROID STIMULATING HORMONE Lab Routine Hypophysitis ([facility]) Expected: 11/23/2023 (Approximate), Expires: 11/15/2024 [facility] Comment on above: Expected: 11/23/2023 (Approximate), Expi res: 11/15/2024 Start: 11-23-2023 End: 11-15-2024 Thyroxine (T4) free [Mass/volume] in Serum or Plasma T4 FREE/FREE THYROXINE Lab Routine Hypophysitis (HCC) Expected: 11/23/2023 (Approximate), Expires: 11/15/2024 [facility] Comment on above: Expected: 11/23/2023 (Approximate), Expi res: 11/15/2024 Start: 11-23-2023 End: 11-23-2023 Patient encounter procedure 11/23/2023 12:40 PM EDT Appointment Radiology MRI [address] [place], [place] [id number] Abnormal brain MRI [R90.89]; Pituitary adenoma (HCC) [D35.2]; Elevated prolactin level [R79.89]; Pituitary disorder (HCC) [E23.7] Radiology MRI Comment on above: Abnormal brain MRI [R90.89]; Pituitary a denoma (HCC) [D35.2]; Elevated prolactin level [R79.89]; Pituitary disorder (HCC) [E23.7] Start: 11-18-2023 End: 11-18-2023 Patient encounter procedure 11/18/2023 9:00 AM EDT Office Visit Endocrinology [address] [place] [address] Monserrat North MD [address] [place], [place] [id number] Pituitary Disease; pit panel ordered and pt aware Endocrinology Comment on above: Pituitary Disease; pit panel ordered and pt aware Start: 10-10-2023 Patient referral [facility] Work Phone: Start: 07-25-2023 Behavioral Health Screening Behavioral Health Screening [facility] Start: 03-25-2023 Covid-19 Vaccine ( season) Covid-19 Vaccine () [facility] Start: 03-25-2023 Covid-19 Vaccine () Covid-19 Vaccine () [facility] Start: 01-15-2023 Bacteria identified in Urine by Culture [facility] Start: 2020 PAP TESTING PAP TESTING [facility] Start: 2020 Screening for malignant neoplasm of cervix Pap Testing [facility] Start: 03-25-2020 Influenza vaccination INFLUENZA (#1) [facility] Start: 2018 Hepatitis B Vaccine (1 of 3 - 19+ 3-dose series) Hepatitis B Vaccine (1 of 3 - 19+ 3-dose series) [facility] Start: 2018 Urine microalbumin profile [facility] Start: 2017 CHLAMYDIA SCREENING (18-24) CHLAMYDIA SCREENING (18-24) [facility] Start: 2017 GC (GONORRHEA) SCREENING (18-24) GC (GONORRHEA) SCREENING (18-24) [facility] Start: 2017 HEPATITIS C SCREENING HEPATITIS C SCREENING [facility] Start: 2017 Hepatitis C screening Hepatitis C Screening [facility] Start: 2017 HIV SCREENING HIV SCREENING [facility] Start: 2017 HIV screening HIV Screening [facility] Start: 2015 Meningococcal B Vaccine: Consider Based On Risk (1 of 2 - Patient Seeks Protection) Meningococcal B Vaccine: Consider Based On Risk (1 of 2 - Patient Seeks Protection) [facility] Start: 2014 HPV Vaccine (1 - 3-dose series) HPV Vaccine (1 - 3-dose series) [facility] Start: 2013 Peds To Adult Transition Annual Assessment Peds To Adult Transition Annual Assessment [facility] Start: 2011 Adult depression screening assessment DEPRESSION SCREENING [facility] Start: 2011 Peds To Adult Transition Initial Discussion Peds To Adult Transition Initial Discussion [facility] Start: 2010 HPV VACCINE (1 - 2-dose series) HPV VACCINE (1 - 2-dose series) [facility] Start: 2010 Urine microalbumin profile DTaP,Tdap,Td Vaccine (6 - Tdap) [facility] Cefuroxime free [Mas s/volume] in Serum or Plasma [facility] Fluoroscopy of upper gastrointestinal tract [facility] Patient referral [facility] Work Phone: PT ED PATIENT INFORMATION PT ED PATIENT INFORMATION Other 10/29/2020 [facility] Immunizations Immunization Date Immunization Notes Care Provider Karl ashley 04-06-2017 meningococcal oligosaccharide (groups A, C, Y and W-135) diphtheria toxoid conjugate vaccine (MCV4O) Monster Lexa Other [facility] Payers Date Payer Category Payer Blue Cross Blue Shield [id number] 2023 Unknown ANTHEM BLUE ACCE SS PPO [id number] 2023-Present [phone] [address] [place] [address] PPO [id number] 2023 Self-pay [id number] 2016 Unknown [employer] BLUE CARD PPO [id number] 2016-Present PPO [id number] 1999 Unknown [id number] 1999 Unknown [id number] 1959 Blue Cross Blue Shield [id number] Private Health Insurance [facility] [id number] Unknown [id number] Unknown [id number] Unknown [id number] Unknown [id number] Unknown [id number] Social History Date Type Detail Facility Tobacco smoking status AZIS Unknown if ever smoked [facility] Start: 1999 Sex Assigned At Not on file [facility] Start: 11-28-2020 End: 11-18-2023 Sex Assigned At [facility] Other Start: 1999 Sex Assigned At Female F [facility] Start: 06-08-2017 End: 11-18-2023 Tobacco smoking status AZIS Never smoked tobacco (finding) [facility] Start: 10-21-2023 End: 12-02-2023 Tobacco smoking status NHIS Smoker (finding) [facility] Tobacco smoking status [facility] Tobacco smoking consumption unknown [facility] Start: 11-28-2020 End: 11-18-2023 History of Social function [facility] National Score (1-100), lower number is lower risk Not on file [facility] Start: 11-18-2023 Tobacco use and exposure Smokeless tobacco non-user [facility] Start: 11-18-2023 Alcohol intake Current drinke r of alcohol (finding) [facility] Start: 11-18-2023 Alcohol Comment [facility] Clinical Notes 04-26-2021 to 11-23-2023 Evelyn Zamora RN - 11/23/2023 12:40 PM Mohan Hurst RT(R) - 11/23/2023 12:40 PM EDTTelephone Encounter - Key Moore - 11/21/2023 6:13 PM EDT Note Date & Type Note Facility 11-23-2023 Note HNO ID: [id number] Author: MOHAN THOMAS RT(R) Service: Radiology Author Type: Technologist Type: Progress Notes Filed: 11/23/2023 12:56 Note Text: Radiology Service Progress Note PATIENT NAME: Charly Foster DATE OF SERVICE: November 23, 2023 TIME: 12:56 PM PATIENT IDENTITY VERIFICATION COMPLETED USING TWO (2) IDENTIFIERS: Name and Date of confirmed by patient verbally and Name and Date of confirmed by identification band FALL SCREENING: Has the patient had 2 falls in the last year or 1 fall with injury or currently using an Ambulatory Assistive Device (Walker, Cane, Wheelchair, Crutches, etc.)? No PATIENT GENDER DATA: Female. status: : No status: N/A PATIENT RELEVANT IMPLANT DATA REVIEWED: Yes PATIENT PRESENTS WITH AN IMPLANTABLE OR ATTACHED ACCOUNT INSTALLATION SPECIALIST: No RADIOLOGY DEPARTMENT: MR; Exam(s) Completed: Head: Pituitary PERIPHERAL IV DATA: Site assessment: Clean,Dry and Intact, Site disposition Discontinued SIGNED BY: RT Anu(R) November 23, 2023 12:56 PM [facility] 11-23-2023 Note HNO ID: [id number] Author: EVELYN ZAMORA RN Service: Nursing Author Type: Registered Nurse Type: Progress Notes Filed: 11/23/2023 12:51 Note Text: Radiology Service Progress Note DATE OF SERVICE: November 23, 2023 TIME: 12:41 PM PATIENT WEIGHT: 108 LBS PATIENT IDENTITY VERIFICATION COMPLETED USING TWO (2) STANDARD IDENTIFIERS: Name and Date of confirmed by patient verbally. FALL SCREENING: Has the patient had 2 falls in the last year or 1 fall with injury or currently using an Ambulatory Assistive Device (Walker, Cane, Wheelchair, Crutches, etc.)? No PATIENT GENDER DATA: Female. status: : No status: NO. ALLERGIES: Reviewed and unchanged CONTRAST ALLERGY: No EXAM: MRI - CONTRAST TYPE: GROUP II IV SITE: Ambulatory: A peripheral IV was started in the Left antecubital site with a Angio cath: 22 gauge. and A Saline lock was inserted per protocol IV SITE APPEARANCE: Clean,Dry and Intact SIGNATURE: Evelyn Zamora RN PATIENT NAME: Charly Foster DATE: November 23, 2023 TIME: 12:41 PM [facility] 11-23-2023 History of Presen t illness Narrative Radiology Service Progress Note DATE OF SERVICE: November 23, 2023 TIME: 12:41 PM PATIENT WEIGHT: 108 LBS PATIENT IDENTITY VERIFICATION COMPLETED USING TWO (2) STANDARD IDENTIFIERS: Name and Date of confirmed by patient verbally. FALL SCREENING: Has the patient had 2 falls in the last year or 1 fall with injury or currently using an Ambulatory Assistive Device (Walker, Cane, Wheelchair, Crutches, etc.)? No PATIENT GENDER DATA: Female. status: : No status: NO. ALLERGIES: Reviewed and unchanged CONTRAST ALLERGY: No EXAM: MRI - CONTRAST TYPE: GROUP II IV SITE: Ambulatory: A peripheral IV was started in the Left antecubital site with a Angio cath: 22 gauge. and A Saline lock was inserted per protocol IV SITE APPEARANCE: Clean,Dry and Intact SIGNATURE: Evelyn Zamora RN PATIENT NAME: Charly Foster DATE: November 23, 2023 TIME: 12:41 PM Radiology Service Progress Note PATIENT NAME: Charly Foster DATE OF SERVICE: November 23, 2023 TIME: 12:56 PM PATIENT IDENTITY VERIFICATION COMPLETED USING TWO (2) IDENTIFIERS: Name and Date of confirmed by patient verbally and Name and Date of confirmed by identification band FALL SCREENING: Has the patient had 2 falls in the last year or 1 fall with injury or currently using an Ambulatory Assistive Device (Walker, Cane, Wheelchair, Crutches, etc.)? No PATIENT GENDER DATA: Female. status: : No status: N/A PATIENT RELEVANT IMPLANT DATA REVIEWED: Yes PATIENT PRESENTS WITH AN IMPLANTABLE OR ATTACHED ACCOUNT INSTALLATION SPECIALIST: No RADIOLOGY DEPARTMENT: MR; Exam(s) Completed: Head: Pituitary PERIPHERAL IV DATA: Site assessment: Clean,Dry and Intact, Site disposition Discontinued SIGNED BY: RT Anu(Nahun) November 23, 2023 12:56 PM documented in this encounter [facility] 11-21-2023 Telephone encount er Note Updated clinical notes from [facility] Date collected 10/19/23 Date scanned in chart 11/21/23 Key Meneses [employer] [facility] F-20 [facility] 11-21-2023 Miscellaneous Notes Formattin g of this note might be different from the original. Updated clinical notes from [facility] Date collected 10/19/23 Date scanned in chart 11/21/23 Key Meneses [employer] [facility] F-20 documented in this encounter [facility] 11-16-2023 Telephone encount er Note Call placed to Charly Foster. Discussed appointment on Tuesday with Dr. North. She tells me she was referred due to abnormal MRI findings. MRI is available for review in [facility]. She has not had pituitary lab work completed. Explained lab work will help have a more productive appointment. I will place orders and she can have them completed at any [facility] lab prior to 9 am. She is going to try to have them completed tomorrow morning. Instructed to refrain from sexual activity or nipple stimulation 12 hours prior to obtaining labs. Understands not to take any steroids the morning of lab work. All questions answered at this time. Gil Reyes RN Hr Operations Advisor November 16, 2023 [facility] 11-16-2023 Miscellaneous Notes Formattin g of this note might be different from the original. Call placed to Charly Foster. Discussed appointment on Tuesday with Dr. North. She tells me she was referred due to abnormal MRI findings. MRI is available for review in [facility]. She has not had pituitary lab work completed. Explained lab work will help have a more productive appointment. I will place orders and she can have them completed at any [facility] lab prior to 9 am. She is going to try to have them completed tomorrow morning. Instructed to refrain from sexual activity or nipple stimulation 12 hours prior to obtaining labs. Understands not to take any steroids the morning of lab work. All questions answered at this time. Gil Reyes RN Hr Operations Advisor November 16, 2023 documented in this encounter [facility] 07-05-2023 Evaluation note Encounter Date Diagnosis Assessment [...] Suspected COVID-19 virus infection (ICD-10 - Z20.822) [facility] 12-01-2023 Evaluation note* Encounter Date Diagnosis [...] aware. Advised follow above treatment plan recommendations [facility] 10-19-2023 Evaluation note* Encounter Date Diagnosis Assessment Notes Treatment Notes Treatment Clinical Notes Apr, Acute non-recurrent maxillary sinusitis (ICD-10 - J01.00) Take medication as prescribed. Humidification, saline nose spray, Neti pot suggested for sinus relief. OTC acetaminophen/ibup rofen for pain. May continue OTC decongestants/anti histamines. [facility] 06-24-2023 Evaluation note* Encounter Date Diagnosis [...] no improvement in 2 to 3 days. [facility] 02-23-2023 Evaluation note* Encounter Date Diagnosis [...] even if you start to feel better. [facility] 02-17-2023 Evaluation note* Encounter Date Diagnosis [...] of diseases classified elsewhere (ICD-10 - B96.89) [facility] 11-21-2022 Evaluation note* Encounter Date Diagnosis [...] of diseases classified elsewhere (ICD-10 - B96.89) [facility] 06-14-2022 NotePROCEDURE: XR ANKLE LT MIN [...] authenticated by: GREGORY KLEIN Date: 2022-01-05 16:37[facility]06-14-2022 NotePROCEDURE: XR ANKLE LT MIN 3 [...] authenticated by: GREGORY KLEIN Date: 2022-01-05 16:37[facility]11-20-2021 Evaluation note* Encounter Date Diagnosis Assessment [...] Patient care instructions given in writting by [facility] document [facility] 10-03-2021 Evaluation note* Encounter Date Diagnosis [...] Patient care instructions given in writting by [facility] document. [facility] Other Evaluation noteNo assessment information available [facility] Work Phone: Evaluation noteNo InformationNort [employer] Other evaluation note* Diagnosis Onset Date Resolution Status Fatigue acute Mitral valve disorder acute Nausea & vomiting acute [facility] Work Phone: evaluation note* Diagnosis Onset Date Resolution Status Chronic constipation acute Fatigue acute Migraine acute Mitral valve disorder acute Nausea & vomiting acute Staring episodes acute Constipation acute Nausea acute Dyspepsia noneactive Celiac disease noneactive [facility] Work Phone: Evaluation note* Diagnosis 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 documented in this encounter [facility] note* Diagnosis Abnormal brain MRI Nonspecific (abnormal) findings on radiological and other examination of skull and head Pituitary adenoma (HCC) Benign neoplasm of pituitary gland and craniopharyngeal duct (pouch) Elevated prolactin level Unspecified endocrine disorder Pituitary disorder (HCC) Unspecified disorder of the pituitary gland and its hypothalamic control documented in this encounter [facility] general Narrative - Reported* Type Description Date Medical History concaved chest Medical History acne Medical History Mitral valve prolapse Medical History anxiety Medical History chronic depression Medical History migraine headache Medical History auto immune disorder unsure of n [place] Surgical History laparoscopy Hospitalization History see above [facility] Other history general Narrative - Reported* Type Description Date Medical History concaved chest Medical History acne Medical History Mitral valve prolapse Medical History anxiety Medical History chronic depression Medical History migraine headache Medical History urticaria Surgical History laparoscopy Hospitalization History see above [facility] Other history general Narrative - Reported* Type Description Date Medical History concaved chest Medical History acne Medical History Mitral valve prolapse Medical History anxiety Medical History chronic depression Medical History migraine headache Medical History urticaria Surgical History laparoscopy Surgical History repair ankle tendon Hospitalization History see above [facility] Other history general Narrative - Reported* Type Description Date Medical History concaved chest Medical History acne Medical History Mitral valve prolapse Medical History anxiety Medical History chronic depression Medical History migraine headache Medical History urticaria Medical History PCOS Surgical History laparoscopy Surgical History repair ankle tendon Hospitalization History see above [facility] Other Summary Purpose Family History Relationship Condition Age at Onset Recorded Date/T madeline father Crohn's disease Unknown Advance Directives Advance Directive Response Recorded Date/ Time Advance Directives No March 3:14pm Advance Directive Response Recorded Date/ Time Advance Directives No March 2:14pm Advance Directive Response Recorded Date/ Time Advance Directives No December 01 10:19am Chief Complaint and Reason for Visit Chief Complaint Dysuria Chief Complaint Er Follow Up Check up Reason for Visit Fatigue Mitral valve disorder Nausea & vomiting Chief Complaint Er Follow Up Check up REF BY DR. BROTHERS CONSTIPATION, NAUSEA & VOMITING Reason for Visit Chronic constipation Fatigue Migraine Mitral valve disorder Nausea & vomiting Staring episodes Constipation Nausea Dyspepsia Celiac disease Chief Complaint Er Follow Up Check up REF BY DR. BROTHERS CONSTIPATION, NAUSEA & VOMITING r27.0 Reason for Visit Chronic constipation Fatigue Migraine Mitral valve disorder Nausea & vomiting Staring episodes Constipation Nausea Dyspepsia Celiac disease Chief Complaint Er Follow Up Check up REF BY DR. BROTHERS CONSTIPATION, NAUSEA & VOMITING r27.0 r11.0 Reason for Visit Chronic constipation Fatigue Migraine Mitral valve disorder Nausea & vomiting Staring episodes Constipation Nausea Dyspepsia Celiac disease Chief Complaint Check up REF BY DR. BROTHERS CONSTIPATION, NAUSEA & VOMITING r27.0 r11.0 [facility] f/u, pain Reason for Visit Chronic constipation Fatigue Migraine Mitral valve disorder Nausea & vomiting Staring episodes Constipation Nausea Dyspepsia Celiac disease Reason for Referral Specialty Diagnoses / Procedures Referred By Connie crawford Referred To Contact MR IMAGING Diagnoses Abnormal brain MRI Pituitary adenoma (HCC) Elevated prolactin level Pituitary disorder (HCC) Procedures MRI PITUITARY WO/W IVCON MRI BRAIN BRAIN STEM W/O W/CONTRAST MATERIAL Monserrat North MD [address] [place] [address] Mr Imaging [id number] Referral ID Status Reason Start Date Expiration Date V isits Requested Visits Authorized [id number] Closed Auto-Generate d Referral 11/18/2023 12/17/2024 1 1 Additional Source Comments Source Comments (unrecognize d section and content) In the event this informatio n is protected by the Federal Confidentiality of Alcohol and Drug Abuse Patient Records regulations: The Federal rules restrict any use of the information to criminally investigate or prosecute any alcohol or drug abuse patient.[facility] the event this information is protected by the Federal Confidentiality of Alcohol and Drug Abuse Patient Records regulations: The Federal rules restrict any use of the information to criminally investigate or prosecute any alcohol or drug abuse patient.[facility] the event this information is protected by the Federal Confidentiality of Alcohol and Drug Abuse Patient Records regulations: The Federal rules restrict any use of the information to criminally investigate or prosecute any alcohol or drug abuse patient.[facility] the event this information is protected by the Federal Confidentiality of Alcohol and Drug Abuse Patient Records regulations: The Federal rules restrict any use of the information to criminally investigate or prosecute any alcohol or drug abuse patient.[facility] INFORMATION SOURCE (unrecogn ized section and content) DATE CREATED AUTHOR 08/21/2021 [facility] DATE CREATED AUTHOR AUTHOR'S ORGANIZ ATION 12/06/2022 [facility] DATE CREATED AUTHOR AUTHOR'S ORGANIZ ATION 11/08/2023 [facility] DATE CREATED AUTHOR AUTHOR'S ORGANIZ ATION 12/04/2023 [facility] REASON FOR VISIT (unrecogniz ed section and content) 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 Medical Records Reason Comments Radiology MRI Specialty Diagnoses / Procedures Referred By Contac t Referred To Contact MR IMAGING Diagnoses Abnormal brain MRI Pituitary adenoma (HCC) Elevated prolactin level Pituitary disorder (HCC) Procedures MRI PITUITARY WO/W IVCON MRI BRAIN BRAIN STEM W/O W/CONTRAST MATERIAL Monserrat North MD [address] [place] [address] Mr Imaging [id number] Referral ID Status Reason Start Date Expiration Date V isits Requested Visits Authorized [id number] Closed Auto-Generate d Referral 11/18/2023 12/17/2024 1 1 Care Teams (unrecognized sec tion and content) Team Status: Inactive Member Role Status Dates OMAIRA Ramos Attending Provider Active Team Status: Active Member Role Status Dates PHYSICIAN NO FAMILY Primary Care Provider Active Team Status: Inactive Member Role Status Dates PHYSICIAN NO FAMILY Primary Care Provider Active Adriana Stallworth APRN Attending Provider Active Team Status: Active Member Role Status Dates [employer] MD Primary Care Provider Active Team Status: Inactive Member Role Status Dates [employer] MD Attending Provider Active St art: August 23, 2023 End: August 23, 2023 Team Status: Inactive Member Role Status Dates [employer] MD Primary Care Provide r, Attending Provider Active Start: October 10, 2023 End: October 10, 2023 Team Status: Inactive Member Role Status Dates [employer] MD Primary Care Provider Active Start: October 21, 2023 End: October 21, 2023 Reji Bailey APRN Attending Provider Active Start: October 21, 2023 End: October 21, 2023 Team Status: Inactive Member Role Status Dates [employer] MD Primary Care Provider Active Start: October 27, 2023 End: October 27, 2023 Bentley Byrne DO Attending Provider Active Start: October 27, 2023 End: October 27, 2023 Team Status: Inactive Member Role Status Dates [employer] MD Primary Care Provider Active Start: November 07, 2023 End: November 07, 2023 Reji Bailey APRN Attending Provider Active Start: November 07, 2023 End: November 07, 2023 Team Status: Inactive Member Role Status Dates [employer] MD Primary Care Provide r, Attending Provider Active Start: December 05, 2023 End: December 05, 2023 Goals (unrecognized section and content) Goals may [...] BE BASED ON THE PRIMARY CLINICAL RECORDS. [employer] provides no warranty or guarantee of the accuracy or completeness of information in this document.
== END 2023-12-07 13:15 | disposition home or self-care (01) ==
LOC: EC 13:14
PROVIDERS: PCP Family Medicine; Visit Provider Podiatrist Foot & Ankle Surgery
DX: M25.572 Pain in left ankle and joints of left foot (principal)
CPT/HCPCS: 73610; 73630

== ENCOUNTER 2023-12-14 13:35 | Outpatient (OUT) | payer BC, SELFPAY ==
--- NOTE | 2023-12-14 13:39 | MR_ITS ---
The [address] [address] Patient Name: CHARLY FOSTER MRN: [id number] date: 2000 Sex: F Assigned Patient Location: MRI Current Patient Location: Accession/Order Number: [id number] Exam Date: 12/14/2023 13:45 Report Date: 12/17/2023 09:10 At the request of: HARMAN EDEN Procedure: MR ankle LT wo con EXAM: MR ankle LT wo con REASON FOR EXAM: Left Ankle Sprain. TECHNIQUE: Multiplanar, multisequence imaging of the left ankle was performed without contrast COMPARISON: Radiographs 12/07/2023. FINDINGS: Mild thickening of the Achilles tendon is consistent mild tendinosis. No tear. The plantar fascia is intact. Laterally, The peroneal tendons are thickened with intermediate signal consistent with tendinosis. No tear identified. The superficial peroneal retinaculum is intact. There are surgical changes from likely lateral ligament reconstruction. Thickening and intermediate signal the anterior syndesmotic and anterior talofibular ligament likely postsurgical. A recurrent tear not identified. Medially, the medial flexor tendons demonstrate normal thickness and signal without tendinosis or tear. The deep deltoid ligament appears intact. The spring ligament is intact. The partially imaged Lisfranc ligament appears intact. Anteriorly, the anterior extensor tendons demonstrate normal thickness and signal without tendinosis or tear. The bone marrow signal is without fracture. The talar dome is congruent. The subtalar joints intact. The sinus tarsi is nonedematous. The midfoot is congruent. The plantar musculature demonstrates normal bulk and signal. Remaining soft tissues are unremarkable. MR/MR ankle LT wo con IMPRESSION: 1. Surgical changes from prior lateral ligamentous reconstruction. A recurrent tear not identified. 2. Moderate peroneal tendinosis without tear. 3. Mild Achilles tendinosis without tear Electronically authenticated by: OCTAVIO SONG Date: 12/17/2023 09:10
== END 2023-12-14 13:36 | disposition home or self-care (01) ==
LOC: MRI 13:35
PROVIDERS: PCP Family Medicine; Visit Provider Podiatrist Foot & Ankle Surgery
DX: S93.492A Sprain of other ligament of left ankle, initial encounter (principal); M76.72 Peroneal tendinitis, left leg; M76.62 Achilles tendinitis, left leg
CPT/HCPCS: 73721

== ENCOUNTER 2024-01-02 12:00 | Emergency (ER) | payer BC, SELFPAY ==
[2024-01-02 12:22] VITALS: BP 117/80; PULSE 85; TEMP 36.9; O2SAT 99; BMI 17.6
--- OUTSIDE RECORDS SUMMARY | 2024-01-02 13:02 | XMS_ITS ---
Patient Summarization (C-CDA 2.1 CCD) Created on: January 02, 2024 Mrs. Charly Foster : 2000 Sex: Female Author Organization Sample organization Care Team Providers Care Geological Aide Name Role Phone Pcp, No Primary Care Provider UnavailKay Howard Unavailable Adriana Martin Unavailable [facility] Unavailable ANA GUERRERO Attending Unavailable DR MONSTER BROTHERS Primary Care Unavailable ANA GUERRERO Admitting Unavailable JESUSITA MARTINEZ Consulting Unavailable JES SHEIKH Consulting Unavailable DR MONSTER BROTHERS Primary Care Unavailable BERNARDINO FERRER Admitting Unavailable DR GREGORY KLEIN Consulting Unavailable BERNARDINO FERRER Attending Unavailable BERNARDINO FERRER Consulting Unavailable KAILA Gillette-Cammy Villanueva Attending Provider Adriana Stallworth Unavailable NO FAMILY, PHYSICIAN Primary Care Provider Unava ilable LALO Stallworth Attending Provider [phone] MD [facility] Primary Care Provider DO Bentley Byrne Attending Provider [phone] LALO Bailey Attending Provider Reji Bailey Attending Unavailable [facility] Primary Care Unavailable Reji Bailey Admitting Unavailable Bentley Byrne Admitting Unavailab Bentley Boland Attending Unavailab Monster Blair Primary Care Unavailable Adriana Stallworth Admitting Unavailable Adriana Stallworth Attending Unavailable NO FAMILY, PHYSICIAN Primary Care Unavailable Kay Gillette Admitting Unavailable Kay Gillette Attending Unavailable NO FAMILY, PHYSICIAN Primary Care Unavailable Unavailable Primary Care Provider UnavailHUSSEIN Mckeon Attending Unavailable YOGI-MORREN, MONSERRAT Referring Unavailable YOGI-MORREN, MONSERRAT Referring Unavailable YOGI-MORREN, MONSERRAT Attending Unavailable YOGI-MORREN, MONSERRAT Referring Unavailable Allergies Allergy Classification Reported Allergen(s) Allergy Type Date of Onset Reaction(s) Facility (20 sources) Ciprofloxacin; Translations: [CIPROFLOXACIN] Drug Allergy 02-16-20 23 GI Upset [facility] (20 sources) Codeine; Translations: [CODEINE] Drug Allergy 09-19-19 15 Hives, Other: See Comments [facility] (13 sources) venlafaxine; Translations: [Effexor] Drug Allergy 09-17-19 20 swelling/shaki ng [facility] Repository (8 sources) Atenolol; Translations: [ATENOLOL] Drug Allergy 10-10-19 24 Unknown, [facility] Repository (7 sources) Cefuroxime; Translations: [CEFUROXIME] Drug Allergy 10-10-19 24 [facility] Repository (2 sources) Ciprofloxacin Drug Allergy very nauseous [facility] Repository (1 source) Codeine Drug Allergy 04-21-20 13 [facility] Repository (4 sources) Iothalamate Drug Allergy 09-17-19 20 Unknown [facility] Repository (2 sources) Perazine Drug Allergy Unknown [facility] Repository (4 sources) predniSONE Drug Allergy 01-24-20 19 Unknown [facility] Repository (4 sources) Sulfamethoxazole / Trimethoprim Drug Allergy Unknown [facility] Repository (7 sources) Atenolol Drug Allergy 10-21-19 24 [facility] (10 sources) Cefuroxime Drug Allergy 09-24-19 18 [facility] [employer] Other (3 sources) Codeine Drug Allergy Unknown [employer] Other (13 sources) rizatriptan; Translations: [RIZATRIPTAN] Drug Allergy 02-16-20 [facility] (13 sources) venlafaxine; Translations: [VENLAFAXINE] Drug Allergy 02-16-20 23 [facility] (3 sources) corticosteroid and/or corticosteroid derivative (FN) Drug allergy Unknown [employer] [facility] Other (1 source) Cefuroxime Drug Allergy Unknown [facility] Other (1 source) Codeine Drug Allergy sensitive over dose as a child [facility] Other (1 source) venlafaxine Drug Allergy Unknown [facility] Other (12 sources) Corticosteroids; Translations: [Corticosteroids (Glucocorticoids)] Allergy to substance 10-10-19 [facility] (12 sources) Metoclopramide; Translations: [metoclopramide] Drug Allergy 02-16-20 [facility] (12 sources) Sulfamethoxazole; Translations: [sulfamethoxazole] Drug Allergy 10-10-19 [facility] (12 sources) Trimethoprim; Translations: [trimethoprim] Drug Allergy 10-10-19 [facility] (1 source) Atenolol Drug Allergy 10-21-19 [facility] Repository (1 source) Cefuroxime Drug Allergy 10-21-19 [facility] Repository (1 source) Ciprofloxacin Drug Allergy 10-21-19 [facility] Repository (1 source) Codeine Drug Allergy 10-21-19 [facility] Repository (1 source) rizatriptan Drug Allergy 10-21-19 [facility] Repository (1 source) venlafaxine Drug Allergy 10-21-19 [facility] Repository Encounters Encounter Date Encounter Type Care Provider Facility Start: 12-12-2023 Telephone encounter Hussein henderson MD Work Phone: Neurology Comment on above: Medication Question Patient Question (In surance information for medication ) Start: 12-09-2023 End: 12-09-2023 ambulatory HUSSEIN HINOJOSAROS Facility:[facility] Start: 12-05-2023 End: 12-05-2023 ambulatory MD [facility] Work Phone: [facility] Work Phone: Start: 12-05-2023 End: 12-05-2023 Patient encounter procedure MD [facility] Work Phone: [facility] Work Phone: Start: 11-23-2023 End: 11-23-2023 ambulatory MONSERRAT NORTH Facility:[facility] Start: 11-23-2023 End: 11-23-2023 Subsequent hospital visit by physician [facility] [place] (Lg Bore/1.5t) Radiology MRI Comment on above: Abnormal brain MRI [ R90.89] Start: 11-21-2023 Telephone encounter Monserrat Sparrow MD Work Phone: Endocrinology Comment on above: Received Outside Med ical Records Start: 11-18-2023 End: 11-18-2023 ambulatory MONSERRAT NORTH Facility:[facility] Start: 11-18-2023 End: 11-18-2023 Patient encounter procedure Monserrat North MD Work Phone: Endocrinology Comment on above: Abnormal brain MRI ( Primary Dx); Pituitary adenoma (HCC); Elevated prolactin level; Pituitary disorder (HCC); Generalized weakness; Generalized pain; Gait instability; Generalized abdominal pain Start: 11-17-2023 End: 11-17-2023 ambulatory MONSERRAT NORTH Facility:[facility] Start: 11-16-2023 Telephone encounter Monserrat Sparrow MD Work Phone: [facility] Comment on above: Sr. Director - O ther Start: 11-07-2023 End: 11-07-2023 ambulatory Reji Bailey Facility:[facility] Start: 11-07-2023 End: 11-07-2023 ambulatory MD [facility] Work Phone: [facility] Work Phone: Start: 11-07-2023 End: 11-07-2023 Patient encounter procedure MD [facility] Work Phone: [facility] Work Phone: Start: 10-27-2023 End: 10-27-2023 ambulatory Bentley Byrne Facility:[facility] Start: 10-27-2023 End: 10-27-2023 ambulatory MD [facility] Work Phone: [facility] Work Phone: Start: 10-27-2023 End: 10-27-2023 Patient encounter procedure MD [facility] Work Phone: [facility] [place] Work Phone: Start: 10-21-2023 End: 10-21-2023 ambulatory [facility] Work Phone: Start: 10-21-2023 End: 10-21-2023 Patient encounter procedure [facility] G[facility] Work Phone: Start: 10-10-2023 End: 10-10-2023 ambulatory [facility] Work Phone: Start: 10-10-2023 End: 10-10-2023 Patient encounter procedure [facility] Work Phone: Start: 08-23-2023 End: 08-23-2023 Patient encounter procedure [facility]- Start: 07-05-2023 End: 07-05-2023 ambulatory Kay Gillette Other [employer] Other Start: 07-05-2023 Office outpatient visit 15 minutes Kay Gillette [facility] Start: 06-24-2023 Office outpatient visit 15 minutes Adriana Stallworth [facility] Start: 06-24-2023 End: 06-24-2023 ambulatory PHYSICIAN NO [facility] Other Start: 06-24-2023 End: 06-24-2023 Patient encounter procedure PHYSICIAN NO [facility] Work Phone: Start: 05-12-2023 (Televisit) Televisit [facility] Start: 05-12-2023 End: 05-12-2023 ambulatory [facility] Other [employer] Other Start: 01-17-2023 End: 01-17-2023 ambulatory Kay Gillette Other [employer] Other Start: 01-17-2023 Telephone encounter Kay [facility]wardmond [facility] Start: 01-15-2023 Office outpatient visit 15 minutes Kay Leta [facility] Start: 01-15-2023 Telephone encounter [facility] Start: 01-15-2023 End: 01-15-2023 ambulatory Kay Gillette [facility] Other Start: 01-15-2023 End: 01-15-2023 Departed Referred 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 Facility:[facility] Start: 09-16-2022 (Televisit) Televisit Monster Malloy [facility] Start: 09-16-2022 End: 09-16-2022 ambulatory [facility] Other [employer] Other Start: 09-10-2022 End: 09-10-2022 ambulatory Kay Woodwardmond Other [employer] Other Start: 09-10-2022 Office outpatient visit 15 minutes Kaytera Gillette [facility] Start: 06-14-2022 End: 06-14-2022 ambulatory Kay Gillette Other [employer] Other Start: 06-14-2022 Office outpatient visit 15 minutes Kay Leta [facility] Start: 01-05-2022 End: 01-06-[address] MONSTER BROTHERS Facility:[facility] Start: 06-13-2021 End: 06-13-2021 ambulatory Adriana Martin Other [employer] Other Start: 06-13-2021 Office outpatient visit 15 minutes Adriana Martin [facility] Start: 04-26-2021 Office outpatient visit 15 minutes Kay Gillette [facility] Start: 10-29-2020 End: 10-29-2020 Patient encounter procedure Verito Antoniot Work Phone: [facility] Start: 10-29-2020 Results Only Verito Garnica Hammad javid Work Phone: Gastroenterology Immunizations Immunization Date Immunization Notes Care Provider Karl ashley 04-06-2017 meningococcal oligosaccharide (groups A, C, Y and W-135) diphtheria toxoid conjugate vaccine (MCV4O) [facility] Other [facility] Medications Current Medications Medication Drug Class(es) Dates Sig (Normalized) Sig (Original) [id number] 200 actuat albuterol 0.09 mg/actuat metered dose [...] Start: 09-16-2022 take 1 capsule by mo [facility] every eight hours Benzonatate 200 MG 1 capsule Orally Three times a day for 10 day(s) Aug, Active busPIRone hydrochloride 10 mg oral tablet (20 sources) Start: 11-01-2023 take 1 tablet by mouth every twelve hours busPIRone (BUSPAR) 10 mg tablet Take 1 tablet by mouth every 12 hours. 0 11/01/2023 Active Start: 10-07-2023 take 1 tablet by zachary twice daily Buspirone Active 1 TAB PO Twice daily October 07, 2023 12:00am FreeTextSig: TAKE 1 TABLET BY MOUTH TWICE DAILY; Note: Source Status: Taking; Refills: 2; Qty: 60 Tablet; Provider: Lexa Wong ( ) Start: 10-07-2023 End: 10-10-2023 take 1 tablet by mouth three times daily Buspirone Discontinued 5 MG PO Three times daily October 07, 2023 12:00am October 10, 2023 1:07pm FreeTextSi tablet Orally Three times a day; Note: Source Status: Not-Taking\PRN; Provider: Lexa Wong ( ) take 1 tablet by zachary twice daily [...] Active ondansetron 4 mg disintegrating oral tablet (13 sources) Serotonin-3 Receptor Antagonist Start: 11-08-2023 take 1 tablet by mouth every eight hours as needed for nausea and vomiting ondansetron orally disintegrating (ZOFRAN ODT) 4 mg disintegrating tablet DISSOLVE 1 (ONE) TABLET ON THE TONGUE EVERY 8 HOURS NEEDED FOR NAUSEA AND VOMITING 0 11/08/2023 Active Start: 10-14-2023 End: 10-21-2023 take 1 tablet [...] MG PO Daily October 21, 2023 12:00am ubrogepant 50 mg oral tablet (2 sources) Start: 12-09-2023 ubrogepant (UB RELVY) 50 mg tablet Take 1 tablet by mouth as needed (migraine headache). 16 tablet 2 12/09/2023 Active Completed/Discontinued Medications Medication Drug Class(es) Dates Sig (Normalized) Sig (Original) amoxicillin 500 mg oral capsule (10 sources) Penicillin-class Antibacterial Start: 09-10-2022 take 1 capsule by mouth every twelve hours Amoxicillin 500 MG 1 capsule Orally Twice a day for 7 days Aug, Not-Taking/PRN Start: 09-10-2022 take 1 capsule by mo uth every eight hours Amoxicillin 500 MG 1 capsule Orally three times a day for 10 day(s) Aug, Not-Taking Start: 06-14-2022 take 1 capsule by mo uth every eight hours Amoxicillin 500 MG 1 capsule Orally three times a day for 10 day(s) May, Active cyproheptadine hydrochloride 4 mg oral tablet (12 sources) Start: 10-07-2023 End: 10-10-2023 take 4 mg by mouth once daily at bedtime Cyproheptadine Discontinued 4 MG PO Daily at bedtime October 07, 2023 12:00am October 10, 2023 1:08pm Cyproheptadine H Cl Not-Taking/PRN Cyproheptadine H Cl Not-Taking Cyproheptadine H Cl Active iv contrast (will be provide d with radiology test) (1 source) Start: 11-18-2023 End: 11-19-2023 iv contrast (will be provide d with radiology test) Indications: Abnormal brain MRI , Pituitary adenoma (HCC) , Elevated prolactin level , Pituitary disorder (HCC) MRI Pituitary Inject, intravenously, once for 1 dose. No IV access, insert saline lock prior to the beginning of sedation, infusion, injection of imaging exam. Discontinue saline lock post exam. If Pt. has a central line or IVAD, may access for administration according to line specific nursing protocol. Once exam is complete flush line and de-access according to line specific nursing protocol in the MR contrast administration guidelines link. 1 Each 0 11/18/2023 11/19/2023 Metoprolol-HCTZ ER (10 sources) Metoprolol-HCTZ ER Not-Taking/PRN [...] Not-Taki ng/PRN Topamax Not-Taki ng Topamax Active Payers Date Payer Category Payer Blue Cross Blue Shield [id number] 2023 Unknown [employer] BLUE ACCE SS PPO [id number] 2023-Present [phone] [id number] [place] [address] PPO [id number] 2023 Self-pay [id number] 2016 Unknown [employer] BLUE CARD PPO [id number] 2016-Present PPO [id number] 2000 Unknown [id number] 2000 Unknown [id number] 1960 Blue Cross Blue Shield [id number] Private Health Insurance [facility] [id number] Unknown [id number] Unknown [id number] Unknown [id number] [id number] Unknown [id number] [id number] Unknown [id number] [id number] Plan of Treatment Date Care Activity Detail Author Start: 03-25-2024 Influenza vaccination Influenza Vaccine (Season Ended) [facility] Start: 12-09-2023 End: 12-09-2023 ambulatory 12/09/2023 3:00 PM EDT [facility] [address] [id number] Hussein Browne MD [address] [place], [place] [id number] Generalized weakness [R53.1]; Generalized pain [R52]; Gait instability [R26.81]; Generalized abdominal pain Neurology Comment on above: Generalized weakness [R53.1]; Generalize d pain [R52]; Gait instability [R26.81]; Generalized abdominal pain Start: 11-23-2023 End: 11-15-2024 Corticotropin [Mass/volume] in Plasma ACTH BLD Lab Routine Hypophysitis (HCC) Expected: 11/23/2023 (Approximate), Expires: 11/15/2024 [facility] Comment on above: Expected: 11/23/2023 (Approximate), Expi res: 11/15/2024 Start: 11-23-2023 End: 11-15-2024 Cortisol [Mass/volume] in Serum or Plasma CORTISOL, SERUM Lab Routine Hypophysitis (HCC) Expected: 11/23/2023 (Approximate), Expires: 11/15/2024 [facility] Comment on above: Expected: 11/23/2023 (Approximate), Expi res: 11/15/2024 Start: 11-23-2023 End: 02-22-2024 Dehydroepiandrosterone (DHEA) [Mass/volume] in Serum or Plasma DHEA BLOOD Lab Routine Hypophysitis (HCC) Expected: 11/23/2023 (Approximate), Expires: 02/22/2024 [facility] Comment on above: Expected: 11/23/2023 (Approximate), Expi res: 02/22/2024 Start: 11-23-2023 End: 11-15-2024 Estradiol (E2) [Mass/volume] in Serum or Plasma ESTRADIOL-17B BLD Lab Routine Hypophysitis ([facility]) Expected: 11/23/2023 (Approximate), Expires: 11/15/2024 [facility] Work Phone: Comment on above: Expected: 11/23/2023 (Approximate), Expi res: 11/15/2024 Start: 11-23-2023 End: 11-15-2024 Follitropin [Units/volume] in Serum or Plasma FOLLICLE STIMULATING HORMONE Lab Routine Hypophysitis ([facility]) Expected: 11/23/2023 (Approximate), Expires: 11/15/2024 [facility] Comment on above: Expected: 11/23/2023 (Approximate), Expi res: 11/15/2024 Start: 11-23-2023 End: 11-15-2024 INSULIN LIK GR FAC I INSULIN LIK GR FAC I Lab Routine Hypophysitis ([facility]) Expected: 11/23/2023 (Approximate), Expires: 11/15/2024 [facility] Comment on above: Expected: 11/23/2023 (Approximate), Expi res: 11/15/2024 Start: 11-23-2023 End: 11-15-2024 Lutropin [Units/volume] in Serum or Plasma LUTEINIZING HORMONE Lab Routine Hypophysitis ([facility]) Expected: 11/23/2023 (Approximate), Expires: 11/15/2024 [facility] Comment on above: Expected: 11/23/2023 (Approximate), Expi res: 11/15/2024 Start: 11-23-2023 End: 11-15-2024 Progesterone [Mass/volume] in Serum or Plasma PROGESTERONE Lab Routine Hypophysitis ([facility]) Expected: 11/23/2023 (Approximate), Expires: 11/15/2024 [facility] Comment on above: Expected: 11/23/2023 (Approximate), Expi res: 11/15/2024 Start: 11-23-2023 End: 11-15-2024 Prolactin [Mass/volume] in Serum or Plasma PROLACTIN Lab Routine Hypophysitis ([facility]) Expected: 11/23/2023 (Approximate), Expires: 11/15/2024 [facility] Comment on above: Expected: 11/23/2023 (Approximate), Expi res: 11/15/2024 Start: 11-23-2023 End: 11-15-2024 Somatostatin [Mass/volume] in Plasma GROWTH HORMONE Lab Routine Hypophysitis ([facility]) Expected: 11/23/2023 (Approximate), Expires: 11/15/2024 [facility] Comment on above: Expected: 11/23/2023 (Approximate), Expi res: 11/15/2024 Start: 11-23-2023 End: 11-15-2024 T4/FTI/T4U T4/FTI/T4U Lab Routine Hypophysitis ([facility]) Expected: 11/23/2023 (Approximate), Expires: 11/15/2024 [facility] Comment on above: Expected: 11/23/2023 (Approximate), Expi res: 11/15/2024 Start: 11-23-2023 End: 11-15-2024 Thyrotropin [Units/volume] in Serum or Plasma THYROID STIMULATING HORMONE Lab Routine Hypophysitis ([facility]) Expected: 11/23/2023 (Approximate), Expires: 11/15/2024 [facility] Comment on above: Expected: 11/23/2023 (Approximate), Expi res: 11/15/2024 Start: 11-23-2023 End: 11-15-2024 Thyroxine (T4) free [Mass/volume] in Serum or Plasma T4 FREE/FREE THYROXINE Lab Routine Hypophysitis ([facility]) Expected: 11/23/2023 (Approximate), Expires: 11/15/2024 [facility] Comment on above: Expected: 11/23/2023 (Approximate), Expi res: 11/15/2024 Start: 11-23-2023 End: 11-23-2023 Patient encounter procedure 11/23/2023 12:40 PM EDT Appointment Radiology MRI [address] [place] [address] Abnormal brain MRI [R90.89]; Pituitary adenoma (HCC) [D35.2]; Elevated prolactin level [R79.89]; Pituitary disorder (HCC) [E23.7] Radiology MRI Comment on above: Abnormal brain MRI [R90.89]; Pituitary a denoma (HCC) [D35.2]; Elevated prolactin level [R79.89]; Pituitary disorder (HCC) [E23.7] Start: 11-18-2023 End: 11-18-2023 Patient encounter procedure 11/18/2023 9:00 AM EDT Office Visit Endocrinology [address] [place] [address] Monserrat North MD [address] [place], [place] [id number] Pituitary Disease; pit panel ordered and pt aware Endocrinology Comment on above: Pituitary Disease; pit panel ordered and pt aware Start: 10-10-2023 Patient referral [facility] Work Phone: Start: 07-25-2023 Behavioral Health Screening Behavioral Health Screening [facility] Start: 03-25-2023 Covid-19 Vaccine ( season) Covid-19 Vaccine ( season) [facility] Start: 03-25-2023 Covid-19 Vaccine ( season) Covid-19 Vaccine ( season) [facility] Start: 01-15-2023 Bacteria identified in Urine by Culture [facility] Start: 2020 PAP TESTING PAP TESTING [facility] Start: 2020 Screening for malignant neoplasm of cervix Pap Testing [facility] Start: 03-25-2020 Influenza vaccination INFLUENZA (#1) [facility] Start: 2018 Hepatitis B Vaccine (1 of 3 - 19+ 3-dose series) Hepatitis B Vaccine (1 of 3 - 19+ 3-dose series) [facility] Start: 2018 Urine microalbumin profile [place] [facility] Start: 2017 CHLAMYDIA SCREENING () CHLAMYDIA SCREENING () [facility] Start: 2017 GC (GONORRHEA) SCREENING (18-24) GC (GONORRHEA) SCREENING (18-24) [facility] Start: 2017 HEPATITIS C SCREENING HEPATITIS C SCREENING [facility] Start: 2017 Hepatitis C screening Hepatitis C Screening [facility] Start: 2017 HIV SCREENING HIV SCREENING [facility] Start: 2017 HIV screening HIV Screening [facility] Start: 2015 Meningococcal B Vaccine: Consider Based On Risk (1 of 2 - Patient Seeks Protection) Meningococcal B Vaccine: Consider Based On Risk (1 of 2 - Patient Seeks Protection) [facility] Start: 2014 HPV Vaccine (1 - 3-dose series) HPV Vaccine (1 - 3-dose series) [facility] Start: 2013 Peds To Adult Transition Annual Assessment Peds To Adult Transition Annual Assessment [facility] Start: 2011 Adult depression screening assessment DEPRESSION SCREENING [facility] Start: 2011 Peds To Adult Transition Initial Discussion Peds To Adult Transition Initial Discussion [facility] Start: 2010 HPV VACCINE (1 - 2-dose series) HPV VACCINE (1 - 2-dose series) [facility] Start: 2010 Urine microalbumin profile DTaP,Tdap,Td Vaccine (6 - Tdap) [facility] Cefuroxime free [Mas s/volume] in Serum or Plasma [facility] Fluoroscopy of upper gastrointestinal tract [facility] Patient referral [facility] Work Phone: PT ED PATIENT INFORMATION PT ED PATIENT INFORMATION Other [facility] Problems Active Problems Problem Classification Problem Date Documented Da te Episodic/Chronic Abdominal pain (6 sources) Epigastric pain; Translations: [Dyspepsia and other specified disorders of function of stomach] Onset: 12-09-2023 10-21-2023 Episodic Bacterial infection; unspecified site (2 [...] 04-26-2021 Resolved: 06-13-2021 Episodic Malaise and fatigue (12 sources) Fatigue; Translations: [Other fatigue] Onset: 12-09-2023 10-10-2023 Episodic Menstrual disorders (3 sources) Missed period; Translations: [Irregular menstruation, unspecified] Chronic Nausea and vomiting (19 sources) Nausea and vomiting; Translations: [Nausea with vomiting, unspecified] Onset: 11-07-2023 10-10-2023 Episodic Other and unspecified benign neoplasm (2 sources) Pituitary adenoma; Translations: [Benign neoplasm of pituitary gland] 11-23-2023 Episodic Other endocrine disorders (1 source) Hypophysitis; Translations: [Other disorders of pituitary gland] 11-16-2023 Chronic Other endocrine disorders (2 sources) Disorder of pituitary gland; Translations: [Disorder of [...] Translations: [Ataxia, unspecified] Onset: 10-27-2023 Episodic Other nervous system disorders (1 source) Unsteadiness on feet; Translations: [Gait instability] Onset: 12-09-2023 Episodic Other nervous system disorders (1 source) Abnormal gait; Translations: [Unsteadiness on feet] 11-18-2023 Episodic Other non-traumatic joint disorders (3 sources) Pain in left ankle and joints of left foot; Translations: [PAIN IN LEFT ANKLE] Onset: 12-02-2022 Episodic Other screening for suspected conditions (not mental disorders or infectious disease) (5 sources) Magnetic resonance imaging of brain abnormal; Translations: [Other abnormal findings on diagnostic imaging of central nervous system] Onset: 12-19-2023 11-23-2023 Episodic Other upper respiratory disease (12 sources) Allergic rhinitis; Translations: [Allergic rhinitis, unspecified] Chronic Other upper respiratory infections (20 sources) Acute sinusitis; Translations: [Sinusitis acute] Onset: 04-26-2021 Resolved: 06-13-2021 Episodic Residual codes; unclassified (4 sources) Staring; Translations: [Transient alteration of awareness] 10-10-2023 Episodic Residual codes; unclassified (4 sources) Transient alteration of awareness; Translations: [Transient alteration of awareness] 10-10-2023 Episodic Residual codes; unclassified (1 source) Pain, unspecified; Translations: [Generalized pain] Onset: 12-09-2023 Episodic Residual codes; unclassified (1 source) Generalized aches and pains; Translations: [Pain, unspecified] 11-18-2023 Episodic Sprains and strains (1 source) Sprain [...] (1 source) Suspected COVID-19 virus infection Z20.822 Procedures Date Procedure Procedure Detail Performing Clinician Start: 11-23-2023 Mri brain brain stem w/o w/contrast material Monserrat North MD Work Phone: Start: 10-27-2023 MRI of head MD [employer] Work Phone: Start: 06-24-2023 Plain X-ray of right hand PHYSICIAN NO FAMILY Start: 10-29-2020 PT ED PATIENT INFORMATION Verito Wilkerson Work Phone: Results Test Name Value Interpretation Reference Range Facility [facility] 12-12-2023 CNPN Telephone (SPNMED) CHARLY FOSTER ([id number]) 2000 F Date Time Provider Department 12/12/23 HUSSEIN BROWNE SPNMED During your visit today, we recorded the following information about you: Andria Cardona MA 12/12/2023 1:19 PM Signed Left vm to call office with current RX insurance information for Ubrelvy 50mg . Prior auth is needed for medication Allergies As of Date: 12/12/2023 Noted Allergy Reaction CODEINE 09/19/2014 4 - [...] Hives Comments: Other Reaction(s): Unknown Date Reviewed: 11/23/2023 Reviewed by: Evelyn Zamora RN - Fully Assessed Reason for Visit: Patient Question [8371] Cmt: Insurance information for medication Prescriptions as of 12/13/2023 - ubrogepant (UBRELVY) 50 mg tablet Take 1 tablet by mouth as needed (migraine headache). - busPIRone (BUSPAR) 10 mg tablet Take 1 tablet by mouth every 12 hours. - ondansetron orally disintegrating (ZOFRAN ODT) 4 mg disintegrating tablet DISSOLVE 1 (ONE) TABLET ON THE TONGUE EVERY 8 HOURS NEEDED FOR NAUSEA AND VOMITING Problem List As Of Date: 12/12/2023 (None) Encounter Status:Closed by ANDRIA CARD[facility] ([id number]) 2000 F Date Time Provider Department 12/12/23 HUSSEIN BROWNE During your visit today, we recorded the following information about you: Lawrence Kinsey, KEMAR 12/12/2023 11:29 AM Signed Kadnice Garcia, [facility], CHRISTIAN Galarza left message on nurse line for provider today with medication question regarding recent prescription for Ubrelvy 50 mg. Tablets. You sent over a prescription for 16 tablets but the medication comes in a box of 10 and we do not split boxes. I was wondering if you could change the quantity to a value of 10. Spoke to Pharmacist at [facility] who was advised that 16 is the maximum monthly manager shell recommended dose. They have started prior authorization and will see what insurance companies authorizes. She stated it is a preference of their pharmacy to not split boxes but they will wait to see what insurance companies recommends. Will call back with any questions or concerns. Allergies As of Date: 12/12/2023 Noted Allergy Reaction CODEINE 09/19/2014 4 - [...] Hives Comments: Other Reaction(s): Unknown Date Reviewed: 11/23/2023 Reviewed by: Evelyn Zamora RN - Fully Assessed Reason for Visit: Medication Question [1478] Prescriptions as of 12/12/2023 - ubrogepant (UBRELVY) 50 mg tablet Take 1 tablet by mouth as needed (migraine headache). - busPIRone (BUSPAR) 10 mg tablet Take 1 tablet by mouth every 12 hours. - ondansetron orally disintegrating (ZOFRAN ODT) 4 mg disintegrating tablet DISSOLVE 1 (ONE) TABLET ON THE TONGUE EVERY 8 HOURS NEEDED FOR NAUSEA AND VOMITING Problem List As Of Date: 12/12/2023 (None) Encounter Status:Closed by LAWRENCE KINSEY on 12/12/[address] [facility] MR Pituitary and Sella turci ca WO and W contrast Olga 11-23-2023 Radiology Study observation (narrative) [facility] IMPRESSION: No pituitary lesion. Adenohypophysis is within normal size limits for age and gender. President Of [place]: PSCB Transcribe Date/Time: Nov 23 2023 2:00P Dictated by : DANNIE TYLER DO This examination was interpreted and the report reviewed and electronically signed by: DANNIE TYLER DO on Nov 23 2023 2:08PM [facility] DIVISION OF RADIOLOGY * * *Final Report* * * DATE OF EXAM: Nov 23 2023 1:22PM [facility] 0314 - MRI PITUITARY WO/W IVCON / [...] skull base. DIVISION OF RADIOLOGY Provider, Vivi Feng - 11/23/2023 * * *Final Report* * * DATE OF EXAM: Nov 23 2023 1:22PM [facility] 0314 - MRI PITUITARY WO/W IVCON / [...] normal size limits for age and gender. President Of [place]: ADRIÁN Transcribe Date/Time: Nov 23 2023 2:00P Dictated by : DANNIE TYLER DO This examination was interpreted and the report reviewed and electronically signed by: DANNIE TYLER DO on Nov 23 2023 2:08PM [facility] MR Pituitary and Sella turci ca WO and W contrast IVOrdered By: [facility] Provider on 11-23-2023 [facility] MRI PITUITARY WO/W IVCONon 0 11-23-2023 MRI PITUITARY WO/W IVCON * * *Final Report* * * DATE OF EXAM: Nov 23 2023 1:22PM [facility] 0314 - MRI PITUITARY WO/W IVCON / [...] normal size limits for age and gender. President Of The [place]: [facility] Transcribe Date/Time: Nov 23 2023 2:00P Dictated by : DANNIE TYLER DO This examination was interpreted and the report reviewed and electronically signed by: DANNIE TYLER DO on Nov 23 2023 2:08PM EST [id number] Normal [facility] Lenka 11-21-2023 CNPN Telephone (ENDOMN) CHARLY FOSTER ([id number]) 2000 F Date Time Provider Department 11/21/23 MONSERRAT NORTH During your visit today, we recorded the following information about you: Key Moore 11/21/2023 6:16 PM Signed Updated clinical notes from [facility] Date collected 10/19/23 Date scanned in chart 11/21/23 Key Menes[employer] Lead II [facility] F-20 Monserrat North MD 12/01/2023 4:53 PM [...] Reason for Visit: Received Outside Medical Records [3576] Prescriptions as of 12/01/2023 - busPIRone (BUSPAR) 10 mg tablet Take 1 tablet by mouth every 12 hours. - ondansetron orally disintegrating (ZOFRAN ODT) 4 mg disintegrating tablet DISSOLVE 1 (ONE) TABLET ON THE TONGUE EVERY 8 HOURS NEEDED FOR NAUSEA AND VOMITING Problem List As Of Date: 11/21/2023 (None) Encounter Status:Closed by KEY MOORE on 11/21/23 [facility] CNOVon 11-18-2023 CNOV Office Visit (ENDPMN ) CHARLY FOSTER ([id number]) 2000 F Date Time Provider Department 11/18/23 9:00 AM MONSERRAT NORTH ENDN During your visit today, we recorded the following information about you: Temperature Pulse Respiration Blood pressure 97.7 degrees 104/minute 18/minute 116/83 Weight Height Last Period 49.2 kg 1.661 m 10/24/23 Monserrat North MD 12/19/2023 11:05 PM Signed Endocrinology/Initial Pituitary Assessment Note: CC: Elevated prolactin Pituitary disorder History of Present Illness: Ms. Charly Foster is a 23 year old female coming today for evaluation of abnormal MRI finding. Referred By: SELF She had MRI done for migraines since the age of 6 years. She was getting botox from January 2022 to 2022 in the past for migraines. She has a constellation of symptoms including migraines, fatigue, generalized pain that can be so severe that she can't walk or work, trouble focusing and seeing things, constipation and abdominal pain, locking of legs and feels that she is stuck and can't walk, esophagus spasms, body aches, word finding difficulty and stuttering. She has a ahistory of PCOS. Her periods are occurring every 5 weeks or more. Denies galactorreha. Has very sensitive breasts. She has been on buspar since age 15 years. She has been zofran for the last month as needed. Patient Also described the following: Headaches:Yes, visual defects:Yes, increased thirst or urination:No,Nocturia: No, discharge from breast:No, painful breast: Yes, Breast swelling:No, increased head/hand or shoe size:No Darkening of skin/gums:No, salt craving:No, skin stretch michel:No, easy bruising:No, excess hair growth over face/chin/chest/or abdomen:No,difficulty raising arms overhead, difficulty getting up from a seated position:No Previous Pituitary Surgery: No Previous Radiotherapy: No Past Medical History: No past medical history on file. Surgical History: No past surgical history on file. Family Medical History: No family history on file. Social History: Social History Tobacco Use Smoking status: Never Smokeless tobacco: Never Vaping Use Vaping Use: current everyday user Substances: Nicotine Devices: Disposable Substance Use Topics Alcohol use: Yes Comment: rare Drug use: Never Allergies: ALLERGIES Allergen Reactions Codeine Hives, Other: See Comments confusion Other Reaction(s): Unknown confusion Atenolol Hives Cefuroxime Hives Ciprofloxacin GI Upset Other Reaction(s): Unknown Corticosteroids (Gl* Hives Metoclopramide Hives Other Reaction(s): Unknown Rizatriptan Hives Other Reaction(s): Unknown Sulfamethoxazole Hives Trimethoprim Hives Venlafaxine Hives Other Reaction(s): Unknown Current medications: Current Outpatient Medications Medication Sig ubrogepant (UBRELVY) 50 mg tablet Take 1 tablet by mouth as needed (migraine headache). busPIRone (BUSPAR) 10 mg tablet Take 1 tablet by mouth every 12 hours. ondansetron orally disintegrating (ZOFRAN ODT) 4 mg disintegrating tablet DISSOLVE 1 (ONE) TABLET ON THE TONGUE EVERY 8 HOURS NEEDED FOR NAUSEA AND VOMITING No current facility-administered medications for this visit. Review of Systems: SYSTEMIC: weight has been stable and low energy EYES: blurring Voice: normal NECK: normal RESPIRATORY: normal CARDIOVASCULAR: History of mild MV prolapse GASTRO-INTESTINAL: nausea, constipation, and abdominal pain NEUROLOGICAL: bilateral leg weakness MUSCULOSKELETAL: Muscle weakness and pain both legs SKIN: dryness PSYCHIATRIC: depression and anxiety LIBIDO: normal SEXUAL-REPRODUCTIVE: normal and cycle every ~5 weeks, Hot flashes: No Physical exam: BP 116/83 Pulse 104 Temp 36.5 ?C (97.7 ?F) (Temporal) Resp 18 Ht 166.1 cm (5' 5.39 ) Wt 49.2 kg (108 lb 7.5 oz) LMP 10/24/2023 (Exact Date) SpO2 99% BMI 17.83 kg/m? GENERAL: Well nourished, well hydrated, in no distress, and oriented x 3, Coarse Facial features:No, Facial Plethora: No. VOICE: normal EYES: no thyroid eye signs and PERRLA HENT: Macroglossia: No, Gap between Teeth: No, Prognathism: No NECK: no visible nodules or goiter, no tenderness, and no adenopathies THYROID: smooth, non-tender, and No palpable nodules Lungs: Lungs clear to auscultation. No wheezing, rhonchi, rales Heart: RRR without murmur, gallop, or rubs. Abdomen: Abdomen soft, non-tender.. No masses, organomegaly, Striae: No, Ecchymosis:No, EXTREMITIES: No clubbing and no edema, NEURO: Gait normal Previous laboratory results: Latest Ref Rng 11/17/2023 T4 5.5 - 10.2 ug/dL 7.4 T4 Uptake 0.91 - 1.19 1.00 FTI 5.3 - 10.8 ug/dL 7.4 Estradiol 17B pg/mL 92 Prolactin 4.5 - 26.8 ng/mL 75.1 (H) Progesterone See comment ng/mL 7.9 TSH 0.270 - 4.200 mIU/L 1.760 Growth Hormone <3.61 ng/mL 0.13 LH See comment mIU/mL 5.3 Insulin-lik (more content not included)... Normal [facility] Corticotropin (P) [Mass/Vol] 7.3 pg/mL Normal 7.2-63.3 [facility] Comment on above: Order Comment: Speci men Type: BLOOD SPECIMEN Ordering Facility: [facility] Address: [address] [place] [address] Result Comment: ACTH Reference Range: 7-10 am: 7.2 - 63.3 pg/mL Performed By: #### 2 141-0 #### [facility] CLIA [id number] [address] [place] [address] [facility] Cortis SerPl-ncon 11-17-19 Cortisol [Mass/Vol] 13.5 ug/dL Normal 4.8-19.5 [facility] Comment on above: Order Comment: Speci men Type: BLOOD SPECIMEN Ordering Facility: [facility] Address: [address] [place] [address] Result Comment: Prov ided reference range is from 6-10 AM sample collection time. Cortisol Reference Range: 6-10 AM = 4.8-19.5 ug/dL, 4-8 PM = 2.5-11.9 ug/dL Performed By: #### 3 024-7, 2842-3, 2839-9, 78977-8 #### [facility] CLIA [id number] [address] [place] [address] [place] DHEA BLOODon 11-17-2023 DHEA 2.677 ng/mL Normal 1.330-7.780 [facility] Comment on above: Order Comment: Maya adalid Type: BLOOD SPECIMEN Ordering Facility: [facility] Address: [address] [place] [address] Result Comment: INTERPRETIVE INFORMATION: Dehydroepiandrosterone, Females 18 years and older: Postmenopausal: 0.60-5.73 ng/mL REFERENCE INTERVAL: Dehydroepiandrosterone by TMS Access complete set of age- and/or gender-specific reference intervals for this test in the [facility] Test Directory ([employer]). This test was developed and its performance characteristics determined by [facility]. It has not been cleared or approved by the US Food and Drug Administration. This test was performed in a CLIA certified laboratory and is intended for clinical purposes. Performed By: [facility] [address] [place] [address] Therapeutic Consultant: Josse Gardiner MD, PhD CLIA Number: [id number] Performed By: #### 3 024-7, 2842-3, 2839-9, 97693-3 #### [facility] CLIA [id number] [address] [place] [address] [place] Estradiol SerPl-mCncon 11-16 E2 [Mass/Vol] 92 pg/mL Normal [facility] Comment on above: Order Comment: Speci adalid Type: BLOOD SPECIMEN Ordering Facility: [facility] Address: [address] [place] [address] Result Comment: This test is not suitable [...] 3243 pg/mL Second trimester : 1561 to 80093 pg/mL Third trimester : 8285 to >33719 pg/mL Post-menopausal Estradiol reference range: < 41 pg/mL Reference: 1. Estradiol - E2 (Estradiol III) [package insert V 3.0 [place]ian]. [facility], [place], [place], December 2015. Performed By: #### 3 024-7, 2842-3, 2839-9, 83974-1 #### [facility] CLIA [id number] [address] [place] [address] [place] FSH SerPl-aCncon 11-17-2023 Follitropin Qn 4.6 m[IU]/mL Normal See comment [facility] Comment on above: Order Comment: Speci men Type: BLOOD SPECIMEN Ordering Facility: [facility] Address: [address] [place] [address] Result Comment: Refe rence range: Follicular: 3.5-12.5 mIU/mL Ovulation: 4.7-21.5 mIU/mL Luteal: 1.7-7.7 mIU/mL Postmenopausal: 25.8-134.8 mIU/mL Performed By: #### 3 024-7, 2842-3, 2839-9, 66221-3 #### [facility] CLIA [id number] [address] [place] [address] [place] INSULIN LIK GR FAC Ion 11-16 INSULIN LIK GR FAC 1 363 ng/mL High 102-317 [facility] Comment on above: Order Comment: Speci men Type: BLOOD SPECIMEN Ordering Facility: [facility] Address: [address] [place] [address] Performed By: #### I LGF1 #### [facility] CLIA [id number] [address] [place] [address] [place] LH SerPl-aCncon 11-17-2023 Lutropin Qn 5.3 m[IU]/mL Normal See comment [facility] Comment on above: Order Comment: Speci men Type: BLOOD SPECIMEN Ordering Facility: [facility] Address: [address] [place] [address] Result Comment: Refe rence range: Follicular: 2.4-12.6 mIU/mL Midcycle: 14.0-95.6 mIU/mL Luteal: 1.0-11.4 mIU/mL Post Yulia: 7.7-58.5 mIU/mL Performed By: #### 3 024-7, 2842-3, 2839-9, 70177-0 #### [facility] CLIA [id number] [address] [place] [address] [place] Progest SerPl-mCncon 024 Progesterone [Mass/Vol] 7.9 ng/mL Normal See comment [facility] Comment on above: Order Comment: Speci men Type: BLOOD SPECIMEN Ordering Facility: [facility] Address: [address] [place] [address] Result Comment: Mens trual Cycle Progesterone Reference Ranges: Follicular: <1.0 ng/mL Ovulation: <12.1 ng/mL Luteal: 1.8 to 23.9 ng/mL. Progesterone Reference Ranges vary by gestational period: First Trimester: 11.0 to 44.3 ng/mL Second Trimester: 25.4 to 83.3 ng/mL Third Trimester: 58.7 to 214 ng/mL Post menopausal Progesterone: <0.5 ng/mL Reference: 1. Progesterone (Progesterone III) [package insert V 1.0 [place]ian]. [facility], [place], [place]. April 2015. Performed By: #### 3 024-7, 2842-3, 2839, 36742-0 #### [facility] CLIA [id number] [address] [place] [address] [place] Prolactin SerPl-mCncon 11-16 Prolactin [Mass/Vol] 75.1 ng/mL High 4.5-26.8 [facility] Comment on above: Order Comment: Speci men Type: BLOOD SPECIMEN Ordering Facility: [facility] Address: [address] [place] [address] Result Comment: Prol actin test is performed using the [facility] Electrochemiluminescence Immunoassay method. Results obtained with different methods or kits cannot be used interchangeably. Performed By: #### 3 024-7, 2842-3, 2839-9, 57778-8 #### [facility] CLIA [id number] [address] [place] [address] [place] Somatostat Plas-mCncon 11-16 Somatostatin (P) [Mass/Vol] 0.13 ng/mL Normal <3.61 [facility] Comment on above: Order Comment: Speci men Type: BLOOD SPECIMEN Ordering Facility: [facility] Address: [address] [place] [address] Performed By: #### 2 961-1 #### [facility] CLIA [id number] [address] [place] [address] [place] T4 Free SerPl-mCncon 024 Free T4 [Mass/Vol] 1.5 ng/dL Normal 0.9-1.7 [facility] Comment on above: Order Comment: Speci men Type: BLOOD SPECIMEN Ordering Facility: [facility] Address: [address] [place] [address] Performed By: #### 3 024-7, 2842-3, 2839-9, 10141-7 #### [facility] CLIA [id number] [address] [place] [address] [place] T4/FTI/T4Uon 11-17-2023 FTI 7.4 ug/dL Normal 5.3-10.8 [facility] Comment on above: Order Comment: Speci men Type: BLOOD SPECIMEN Ordering Facility: [facility] Address: [address] [place] [address] Performed By: #### 3 024-7, 2842-3, 2839-9, 35385-7 #### [facility] CLIA [id number] [address] [place] [address] [place] T4 [Mass/Vol] 7.4 ug/dL Normal 5.5-10.2 [facility] Comment on above: Order Comment: Speci men Type: BLOOD SPECIMEN Ordering Facility: [facility] Address: [address] [place] [address] Performed By: #### 3 024-7, 2842-3, 2839-9, 50390-1 #### [facility] CLIA [id number] [address] [place] [address] [place] T4 uptake [Mass/Vol] 1.00 Normal 0.91-1.19 [facility] Comment on above: Order Comment: Maya cordoba Type: BLOOD SPECIMEN Ordering Facility: [facility] Address: [address] [place] [address] Performed By: #### 3 024-7, 2842-3, 2839-9, 05358-5 #### [facility] CLIA [id number] [address] [place] [address] [place] TSH SerPl-aCncon 11-17-2023 TSH Qn 1.760 m[IU]/L Normal 0.270-4.200 [facility] Comment on above: Order Comment: Maya cordoba Type: BLOOD SPECIMEN Ordering Facility: [facility] Address: [address] [place] [address] Result Comment: If t he patient is , TSH reference range varies by gestational period: First Trimester (weeks 9-12): 0.180-2.990 mIU/L Second Trimester: 0.110-3.980 mIU/L Third Trimester: 0.480-4.710 mIU/L Antonio Arias et al. A Practical Approach for the Verifications and Determination of Site- and Trimester-Specific Reference Intervals for Thyroid Function tests in . Thyroid, 2019:29:3:412-420. Massimo Howell, et al. 2017 Guidelines of the [place] Thy[employer] Association for the Diagnosis and Management of Thyroid Disease during and the . Thyroid, 2017:27:3:315-389. Performed By: #### 3 024-7, 2842-3, 2839-9, 77785-1 #### [facility] CLIA [id number] [address] [place] [address] [place] CNPNon 11-16-2023 CNPN Telephone ([facility]) CHARLY FOSTER ([id number]) 2000 F Date Time Provider Department 11/16/23 MONSERRAT NORTH NSCAMN During your visit today, we recorded the following information about you: Gil Reyes, KEMAR 11/16/2023 9:41 AM Signed Call placed to Charly Foster. Discussed appointment on Tuesday with Dr. North. She tells me she was referred due to abnormal MRI findings. MRI is available for review in [facility]. She has not had pituitary lab work completed. Explained lab work will help have a more productive appointment. I will place orders and she can have them completed at any [facility] lab prior to 9 am. She is going to try to have them completed tomorrow morning. Instructed to refrain from sexual activity or nipple stimulation 12 hours prior to obtaining labs. Understands not to take any steroids the morning of lab work. All questions answered at this time. Gil Reyes RN Sr. Director November 16, 2023 Allergies As of Date: 11/16/2023 (Not on File) Date Reviewed: Never Reviewed Reason for Visit: Sr. Director - Other [3602] Primary Visit Diagnosis:Hypophysitis (HCC) [E23.6] Order(s):ESTRADIOL-17B BLD [SQE2] Order #: [id number] FUTURE PROLACTIN [SQPROL] Order #: [id number] FUTURE PROGESTERONE [SQPROG] Order #: [id number] FUTURE THYROID STIMULATING HORMONE [SQTSH] Order #: [id number] FUTURE GROWTH HORMONE [SQGH] Order #: [id number] FUTURE LUTEINIZING HORMONE [SQLH] Order #: [id number] FUTURE INSULIN LIK GR FAC I [SQILGF1] Order #: [id number] FUTURE FOLLICLE STIMULATING HORMONE [SQFSH] Order #: [id number] FUTURE T4 FREE/FREE THYROXINE [SQFT4] Order #: [id number] FUTURE CORTISOL, SERUM [SQCOR] Order #: [id number] FUTURE ACTH BLD [SQACTH] Order #: [id number] FUTURE T4/FTI/T4U [SVE5UDK] Order #: [id number] FUTURE DHEA BLOOD [SQDHEA] Order #: [id number] FUTURE Problem List As Of Date: 11/16/2023 (None) Encounter Status:Closed by GIL REYES on 11/16/[address] [facility] FL esophagus ugion [place] esophagus ugi [place] [address] Fluoroscopy Report Signed Patient: Charly Foster MR#: [id number] 1015 : 2000 Acct:[id number] Age/Sex: 23 / F ADM Date: 11/07/23 Loc: XD Room: Type: [facility] Attending Dr: Reji Bailey [employer]ILD[employer]PER[employer] Copies to: Reji Bailey APRN Ordering Provider: Reji Bailey APRN Date of Service: 11/07/23 FL/FL esophagus ugi: R11.0 - Nausea DOUBLE CONTRAST UPPER GI SERIES CLINICAL HISTORY: Nausea, upper abdominal pain. Dysphagia. COMPARISON: None TECHNIQUE: Double contrast upper GI series was performed. Cumulative Air Kerma in mGy: 104.63 mGy FINDINGS: Mounter Smoking Pipe image demonstrates no acute findings. No esophageal [...] Bowser Jr., D.O.11/07/2023 12:54 PM Dictation Location: [place] [address] Transcribed By: [facility] 11/07/23 1254 Dictated By: Bautista Bowser Jr, DO 11/07/23 1250 Signed By: 11/07/23 1254 Normal [facility] MR head/brain wo/w conon MR head/brain wo/w con [facility] [place] [address] [place] [address] MRI Report Signed Patient: Charly Foster MR#: [id number] : 2000 Acct:[id number] Age/Sex: 23 / F ADM Date: 10/27/23 Loc: MR Room: Type: [facility] Attending Dr: Bentley Byrne DO Copies [...] Puneet Patrick M.D.10/27/2023 7:53 PM Dictation Location: [place] [address] Transcribed By: JONATHAN 10/27/231952 Dictated By: Puneet Patrick II, MD 10/27/231944 Signed By: 10/27/231952 Normal [facility] Basophils Auto (Bld) [#/Vol] on 10-10-2023 Basophils (Bld) [#/Vol] 0.1 10 3/uL 0.0-0.1 [facility] Basophils/100 WBC Auto (Bld) on 10-10-2023 Basophils/100 WBC (Bld) 0.5 % 0.2-2.0 [facility] Eosinophils/100 WBC Auto (Bl d)on 10-10-2023 Eosinophils/100 WBC (Bld) 0.8 % 0.9-7.0 [facility] Erythrocyte distribution wid th Auto (RBC) [Ratio]on 10-10-2023 Erythrocyte distribution width (RBC) [Ratio] 12.3 % 11.0-15.0 [facility] Estimated glomerular filtrat ion rate (GFR) non- Americanon 10-10-2023 GFR/1.73 sq M.predicted among non-blacks MDRD (S/P/Bld) [Vol rate/Area] mL/min/{1.73_m2} >=60 [facility] Hematocrit Auto (Bld) [Volum e fraction]on 10-10-2023 Hematocrit (Bld) [Volume fraction] 43.6 % 36.0-48.0 [facility] Hemoglobin [Mass/volume] in Bloodon 10-10-2023 Hemoglobin (Bld) [Mass/Vol] 15.0 g/dL 12.0-16.0 [facility] Laboratory - Chemistry and C hemistry - challengeon 10-10-2023 Calcium [Mass/Vol] 8.4 mg/dL 8.5-10.1 [facility] Chloride [Moles/Vol] 104 mmol/L 98-107 [facility] CO2 [Moles/Vol] 27.2 mmol/L 21.0-32.0 [facility] Creatinine [Mass/Vol] 0.81 mg/dL 0.55-1.02 [facility] GFR/1.73 sq M.predicted MDRD (S/P/Bld) [Vol rate/Area] mL/min/{1.73_m2} >=60 [facility] Glucose [Mass/Vol] 98 mg/dL 74-106 [facility] Potassium [Moles/Vol] 3.7 mmol/L 3.5-5.1 [facility] Sodium [Moles/Vol] 140 mmol/L 136-145 [facility] TSH Qn 0.840 m[IU]/L 0.358-3.740 [facility] Urea nitrogen [Mass/Vol] 10.0 mg/dL 7.0-18.0 [facility] Urea nitrogen/Creatinin e [Mass ratio] 12.3 mg/mg [facility] Laboratory - Hematology and Cell countson 10-10-2023 ESR (Bld) [Velocity] 4 mm/h <=20 [facility] Immature granulocytes/100 WBC (Bld) 0.1 % 0.0-0.5 [facility] Leukocytes [#/volume] correc jeri for nucleated erythrocytes in Blood by Automated counon 10-10-2023 WBC corrected for nucl RBC Auto (Bld) [#/Vol] 11.0 10 3/uL 4.0-11.0 [facility] Lymphocytes Auto (Bld) [#/Vo l]on 10-10-2023 Lymphocytes (Bld) [#/Vol] 2.0 10 3/uL 1.2-3.8 [facility] Lymphocytes/100 WBC Auto (Bl d)on 10-10-2023 Lymphocytes/100 WBC (Bld) 17.9 % 20.5-60.0 [facility] MCH Auto (RBC) [Entitic mass ]on 10-10-2023 MCH (RBC) [Entitic mass] 31.2 pg 26.7-34.0 [facility] MCHC Auto (RBC) [Mass/Vol]on 10-10-2023 MCHC (RBC) [Mass/Vol] 34.4 g/dL 29.9-35.2 [facility] MCV Auto (RBC) [Entitic vol] on 10-10-2023 MCV (RBC) [Entitic vol] 90.6 fL 81.0-99.0 [facility] Monocytes Auto (Bld) [#/Vol] on 10-10-2023 Monocytes (Bld) [#/Vol] 0.8 10 3/uL 0.3-0.8 [facility] Monocytes/100 WBC Auto (Bld) on 10-10-2023 Monocytes/100 WBC (Bld) 6.9 % 1.7-12.0 [facility] Neutrophils Auto (Bld) [#/Vo l]on 10-10-2023 Neutrophils (Bld) [#/Vol] 8.1 10 3/uL 1.4-6.5 [facility] Neutrophils/100 WBC Auto (Bl d)on 10-10-2023 Neutrophils/100 WBC (Bld) 73.8 % 43.0-75.0 [facility] No Panel Informationon 10-09 Eosinophils # (Auto) 0.1 10 3/uL 0.0-0.7 [facility] Immature Granulocyte # (Auto) 0.01 10 3/uL 0.00-0.03 [facility] Platelet mean volume Auto (B ld) [Entitic vol]on 10-10-2023 Platelet mean volume (Bld) [Entitic vol] 10.2 fL 9.5-13.5 [facility] Platelets Auto (Bld) [#/Vol] on 10-10-2023 Platelets (Bld) [#/Vol] 262 10 3/uL 150-450 [facility] RBC Auto (Bld) [#/Vol]on RBC (Bld) [#/Vol] 4.81 10 6/uL 4.20-5.40 [facility] Serum or plasma anion gap de terminationon 10-10-2023 Anion gap [Moles/Vol] 12.5 mmol/L [facility] Serum or plasma free cefurox madeline measurement (mass/volume)on 10-10-2023 Cefuroxime free [Mass/Vol] Negative Negative [facility] Comment on above: Performed at: [address] [id number] Director: Garret Bledsoe PhD, Phone: [phone] COVID + FLU Quick Testingon 07-05-2023 SARS-CoV-2 (COVID-19) RNA FRANKLIN+probe Ql (Unsp spec) Negative [employer] Other COVID + FLU Quick Testing Negative [employer] [facility] Other Test, Urineon 12-0 Beta HCG ( test) Ql (U) Negative [employer] Other XR hand RT min 3V*on 023 XR hand RT min 3V* [facility] [address] [place] [address] XRay Report Signed Patient: Charly Foster MR#: [id number] : 2000 Acct:[id number] Age/Sex: 23 / F ADM Date: 06/24/23 Loc: [facility] Room: Type: [facility] Attending Dr: Adriana Stallworth APRN Copies [...] Saul Staton M.D.06/24/2023 10:17 AM Dictation Location: [place] [address] Transcribed By: [facility] 06/24/23 1017 Dictated By: Saul Staton DO 06/24/23 1015 Signed By: 06/24/23 1017 Normal [facility] XR hand RT min 3V* [facility] [employer] Other XR hand RT min 3V* [facility] [employer] Other XR hand RT min 3V* [address] [facility] [employer] Other XR hand RT min 3V* [place] [address] [employer] [facility] Other XR hand RT min 3V* XRay Report [employer] Other XR hand RT min 3V* Signed [employer] Other XR hand RT min 3V* Patient: Milan Foster MR#: [id number] [employer] Other XR hand RT min 3V* 1015 [employer] Other XR hand RT min 3V* : 2000 Acct:[id number] [employer] Other XR hand RT min 3V* Age/Sex: 23 / F ADM Date: 06/24/23 [employer] Other XR hand RT min 3V* Loc: [facility] Room: pe: REG CLI [employer] Other XR hand RT min 3V* Attending Dr: Adriana Stallworth [facility] [employer] Other XR hand RT min 3V* Copies to: Adriana silva [facility] [employer] Other XR hand RT min 3V* Ordering Provider: Luther Stallworth [facility] [employer] Other XR hand RT min 3V* Date of Service: 06/24/23 [employer] Other XR hand RT min 3V* [address]) XR/XR hand RT min 3V*: Injury [employer] Other XR hand RT min 3V* 3 views right hand p lucila film [employer] Other XR hand RT min 3V* COMPARISON: None [employer] Other XR hand RT min 3V* HISTORY: Right hand injury [employer] Other XR hand RT min 3V* ACUTE FINDINGS: None [employer] Other XR hand RT min 3V* DEGENERATIVE CHANGE: Unremarkable [employer] Other XR hand RT min 3V* SOFT TISSUE FINDINGS : Unremarkable [employer] Other XR hand RT min 3V* JOINT EFFUSION: None [employer] Other XR hand RT min 3V* POSTOP CHANGES: None [employer] Other XR hand RT min 3V* BONY MINERALIZATION: Adequate [employer] Other XR hand RT min 3V* X R/XR hand RT min 3V* [employer] Other XR hand RT min 3V* IMPRESSION: No acute findings [employer] Other XR hand RT min 3V* Impression dictated by: Saul Staton M.D.06/24/2023 10:17 AM [employer] Other XR hand RT min 3V* Dictation Location: [facility] [place] [address] [employer] Other XR hand RT min 3V* Transcribed By: [facility] 06/24/[address] [place] [address] [employer] Other XR hand RT min 3V* Dictated By: Yung Staton DO 06/24/23 [facility] [employer] Other XR hand RT min 3V* Signed By: [employer] Other XR hand RT min 3V* 06/24/[address] [place] [address] [employer] Other Urinalysis - AUTOMATEDon Appearance (U) cloudy [employer] Other Bilirubin Ql (U) small [employer] Other Color (U) adriana [employer] Other Glucose Ql (U) Negative [employer] Other Hemoglobin Ql (U) large [employer] [facility] [employer] Other Ketones Ql (U) Negative [employer] Other Leukocyte esterase Test strip Ql (U) large [employer] Other Nitrite Ql (U) Positive [employer] Other pH (U) 6.5 [pH] [employer] Other Protein Ql (U) >300 [employer] Other Specific gravity (U) [Rel density] >1.030 [employer] Other Urobilinogen (U) [Mass/Vol] 1.0 mg/dL [employer] Other Urinalysis - AUTOMATED [employer] Other Urine Cultureon 01-15-2023 Bacteria identified Cx Nom (U) [employer] Other Bacteria identified Cx Nom (U) Reason for Exam Dysuria Urine 50,000 colonies/ml mixed bacterial skin contaminants 2 Days PERFORMED BY: [place] [id number] PATHOLOGIST HOSPICE CLINICAL MARKETER YECENIA WHITE M.D. Normal [facility] Comment on above: Performed By: #### C UU #### [address] URon 12-02-2022 , QUAL Negative Normal NEGATIVE [facility] Comment on above: Performed By: #### P REGU #### [facility] [address] [place] [address] [address] Corie Frias XR ANKLE LT MIN [...] by: JES SHEIKH Date: 2022-12-02 19:47 Normal [facility] XR FOOT LT MIN 3 VIEWSon [...] by: JES SHEIKH Date: 2022-12-02 19:48 Normal [facility] COVID + FLU Quick Testingon 09-10-2022 SARS-CoV-2 (COVID-19) RNA FRANKLIN+probe Ql (Unsp spec) Negative [employer] Other COVID + FLU Quick Testing Negative [employer] Other Quick Strepon 09-10-2022 S. 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 Normal [facility] [employer] Testingon 2020 Result Negative [employer] Other Social History Date Type Detail Facility Start: 11-18-2023 Tobacco use and exposure Smokeless tobacco non-user [facility] Start: 11-18-2023 Alcohol intake Current drinke r of alcohol (finding) [facility] Start: 11-18-2023 [facility] Start: 10-21-2023 End: 12-02-2023 Tobacco smoking status NHIS Smoker (finding) [facility] Start: 11-28-2020 End: 11-18-2023 Sex Assigned At [facility] Start: 11-28-2020 End: 11-18-2023 History of Social function [facility] Start: 06-08-2017 End: 11-18-2023 Tobacco smoking status NHIS Never smoked tobacco (finding) [facility] Start: 2000 Sex Assigned At Not on file C [facility] Start: 2000 Sex Assigned At Female F [facility] Tobacco smoking status CAIS Unknown if ever smoked [facility] Tobacco smoking status CAIS Tobacco smoking consumption unknown [facility] National Score (1-100), lower number is lower risk Not on file [facility] Vital Signs Date Time Vital Sign Value Performing Clinician Facility 12-05-2023 10:52-0400 Body height 165.1 cm MD [employer] Work Phone: [facility] 12-05-2023 10:52-0400 Body mass index (BMI) [Ratio] 17.9 kg/m2 MD [employer] Work Phone: [facility] 12-05-2023 10:52-0400 Body weight 48.7 kg MD [employer] Work Phone: [facility] 12-05-2023 10:52-0400 Diastolic blood pressure 73 mm[Hg] MD [employer] Work Phone: [facility] 12-05-2023 10:52-0400 Heart rate 109 /min MD [employer] Work Phone: [facility] 12-05-2023 10:52-0400 Systolic blood pressure 102 mm[Hg] MD [employer] Work Phone: [facility] 11-18-2023 09:01-0400 Body height 166.1 cm Monserrat North MD Work Phone: [facility] 11-18-2023 09:01-0400 Body mass index (BMI) [Ratio] 17.83 kg/m2 Monserrat North MD Work Phone: [facility] 11-18-2023 09:01-0400 Body temperature 97.7 [degF] Monserrat North MD Work Phone: [facility] 11-18-2023 09:01-0400 Body weight 49.2 kg Monserrat North MD Work Phone: [facility] 11-18-2023 09:01-0400 Diastolic blood pressure 83 mm[Hg] Monserrat North MD Work Phone: [facility] 11-18-2023 09:01-0400 Heart rate 104 /min Monserrat North MD Work Phone: [facility] 11-18-2023 09:01-0400 Respiratory rate 18 /min Monserrat North MD Work Phone: [facility] 11-18-2023 09:01-0400 SaO2% (BldA) [Mass fraction] 99 % Monserrat North MD Work Phone: [facility] 11-18-2023 09:01-0400 Systolic blood pressure 116 mm[Hg] Monserrat North MD Work Phone: [facility] 10-21-2023 09:33-0400 Body height 165.1 cm [facility] 10-21-2023 09:33-0400 Body mass index (BMI) [Ratio] 18.3 kg/m2 [facility] 10-21-2023 09:33-0400 Body weight 49.89 kg [facility] 10-10-2023 13:00-0400 Body height 165.1 cm [facility] 10-10-2023 13:00-0400 Body mass index (BMI) [Ratio] 18.1 kg/m2 [facility] 10-10-2023 13:00-0400 Body weight 49.44 kg [facility] 10-10-2023 13:00-0400 Diastolic blood pressure 78 mm[Hg] [facility] 10-10-2023 13:00-0400 Heart rate 76 /min [facility] 10-10-2023 13:00-0400 Systolic blood pressure 112 mm[Hg] [facility] 08-23-2023 11:30-0500 Body height 165.1 cm [facility] 08-23-2023 11:30-0500 Body weight 50.71 kg [facility] 08-23-2023 11:30-0500 Diastolic blood pressure 73 mm[Hg] [facility] 08-23-2023 11:30-0500 Systolic blood pressure 102 mm[Hg] [facility] 07-05-2023 18:00-0500 Body height 165.1 cm Kay Gillette Other [employer] Other 07-05-2023 18:00-0500 Body mass index (BMI) [Ratio] 19.97 kg/m2 Kay Gillette Other [employer] Other 07-05-2023 18:00-0500 Body temperature 99.1 [degF] Kay Gillette Other [employer] Other 07-05-2023 18:00-0500 Body weight 54.43 kg Kay Leta Other [employer] Other 07-05-2023 18:00-0500 Respiratory rate 18 /min Kay Gillette Other [employer] Other 07-05-2023 18:00-0500 SaO2% (BldA) [Mass fraction] 99 % Kay Gillette Other [employer] Other 06-24-2023 09:45-0500 Body height 165.1 cm Adriana Stallworth Other [employer] Other 06-24-2023 09:45-0500 Body mass index (BMI) [Ratio] 20.13 kg/m2 Adriana Stallworth Other [employer] Other 06-24-2023 09:45-0500 Body temperature 97.7 [degF] Adriana Stallworth Other [employer] Other 06-24-2023 09:45-0500 Body weight 54.89 kg Adriana Stallworth Other [employer] Other 06-24-2023 09:45-0500 Respiratory rate 20 /min Adriana Stallworth Other [employer] Other 06-24-2023 09:45-0500 SaO2% (BldA) [Mass fraction] 98 % Adriana Stallworth Other [employer] Other 01-15-2023 11:40-0400 Body height 165.1 cm Kay Leta Other [employer] Other 01-15-2023 11:40-0400 Body mass index (BMI) [Ratio] 19.97 kg/m2 Kay Leta Other [employer] Other 01-15-2023 11:40-0400 Body temperature 97.3 [degF] Kay Leta Other [employer] Other 01-15-2023 11:40-0400 Body weight 54.43 kg Kay Leta Other [employer] Other 01-15-2023 11:40-0400 Diastolic blood pressure 68 mm[Hg] Kay Leta Other [employer] Other 01-15-2023 11:40-0400 Respiratory rate 18 /min Kay Leta Other [employer] Other 01-15-2023 11:40-0400 SaO2% (BldA) [Mass fraction] 98 % Kay Leta Other [employer] Other 01-15-2023 11:40-0400 Systolic blood pressure 108 mm[Hg] Kay Leta Other [employer] Other 09-10-2022 18:40-0500 Body height 165.1 cm Kay Leta Other [employer] Other 09-10-2022 18:40-0500 Body mass index (BMI) [Ratio] 19.97 kg/m2 Kay Leta Other [employer] Other 09-10-2022 18:40-0500 Body temperature 98.7 [degF] Kay Leta Other [employer] Other 09-10-2022 18:40-0500 Body weight 54.43 kg Kay Leta Other [employer] Other 09-10-2022 18:40-0500 Respiratory rate 18 /min Kay Leta Other [employer] Other 09-10-2022 18:40-0500 SaO2% (BldA) [Mass fraction] 99 % Kay Leta Other [employer] Other 06-14-2022 17:25-0500 Body height 165.1 cm Kay Gillette Other [employer] Other 06-14-2022 17:25-0500 Body mass index (BMI) [Ratio] 19.13 kg/m2 Kay Leta Other [employer] Other 06-14-2022 17:25-0500 Body temperature 100.7 [degF] Kay Gillette Other [employer] Other 06-14-2022 17:25-0500 Body weight 52.16 kg Kay Gillette Other [employer] Other 06-14-2022 17:25-0500 Respiratory rate 18 /min Kay Gillette Other [employer] Other 06-14-2022 17:25-0500 SaO2% (BldA) [Mass fraction] 99 % Kay Gillette Other [employer] Other 06-13-2021 15:30-0500 Body height 165.1 cm Adriana Ginty Other [employer] Other 06-13-2021 15:30-0500 Body mass index (BMI) [Ratio] 17.47 kg/m2 Adriana Ginty Other [employer] Other 06-13-2021 15:30-0500 Body temperature 97.9 [degF] Adriana Ginty Other [employer] Other 06-13-2021 15:30-0500 Body weight 47.63 kg Adriana Ginty Other [employer] Other 06-13-2021 15:30-0500 SaO2% (BldA) [Mass fraction] 98 % Adriana Martin Other [employer] Other 04-26-2021 14:20-0400 Body height 165.1 cm Kay Gillette Other [employer] Other 04-26-2021 14:20-0400 Body mass index (BMI) [Ratio] 17.47 kg/m2 Kay Gillette Other [employer] Other 04-26-2021 14:20-0400 Body temperature 98.7 [degF] Kay Gillette Other [employer] Other 04-26-2021 14:20-0400 Body weight 47.63 kg Kay Gillette Other [employer] Other 04-26-2021 14:20-0400 SaO2% (BldA) [Mass fraction] 98 % Kay Gillette Other [employer] Other Clinical Notes 04-26-2021 to 12-12-2023 Telephone Encounter - Andria Cardona MA - 12/12/2023 1:17 PM EDTTelephone Encounter - Andria Cardona MA - 12/12/2023 1:17 PM EDTTelephone Encounter - Lawrence Kinsey RN - 12/12/2023 11:06 AM EDT Note Date & Type Note Facility 12-12-2023 Telephone encount er Note Left vm to call office with current RX insurance information for Ubrelvy 50mg . Prior auth is needed for medication [facility] 12-12-2023 Miscellaneous Notes Formattin g of this note might be different from the original. Left vm to call office with current RX insurance information for Ubrelvy 50mg . Prior auth is needed for medication documented in this encounter [facility] 12-12-2023 Telephone encount er Note Kandice Garcia, [employer] [facility] [place] left message on nurse line for provider today with medication question regarding recent prescription for Ubrelvy 50 mg. Tablets. You sent over a prescription for 16 tablets but the medication comes in a box of 10 and we do not split boxes. I was wondering if you could change the quantity to a value of 10. Spoke to Pharmacist at [employer] who was advised that 16 is the maximum monthly manager shell recommended dose. They have started prior authorization and will see what insurance companies authorizes. She stated it is a preference of their pharmacy to not split boxes but they will wait to see what insurance companies recommends. Will call back with any questions or concerns. [facility] 12-12-2023 Miscellaneous Notes Formattin g of this note might be different from the original. Kandice Garcia, [employer] [place] left message on nurse line for provider today with medication question regarding recent prescription for Ubrelvy 50 mg. Tablets. You sent over a prescription for 16 tablets but the medication comes in a box of 10 and we do not split boxes. I was wondering if you could change the quantity to a value of 10. Spoke to Pharmacist at [employer] who was advised that 16 is the maximum monthly manager shell recommended dose. They have started prior authorization and will see what insurance companies authorizes. She stated it is a preference of their pharmacy to not split boxes but they will wait to see what insurance companies recommends. Will call back with any questions or concerns. documented in this encounter [facility] 11-23-2023 Note HNO ID: [id number] Author: EVELYN ZAMORA RN Service: Nursing Author [...] DATE: November 23, 2023 TIME: 12:[address] [facility] 11-23-2023 Note HNO ID: [id number] Author: MOHAN THOMAS RT(Nahun) Service: Radiology Author Type: Technologist Type: Progress [...] PATIENT PRESENTS WITH AN IMPLANTABLE OR ATTACHED MARKET SURVEY REPRESENTATIVE: No RADIOLOGY DEPARTMENT: MR; Exam(s) Completed: Head: Pituitary PERIPHERAL IV DATA: Site assessment: Clean,Dry and Intact, Site disposition Discontinued SIGNED BY: RT Anu(Nahun) November 23, 2023 12:[address] [facility] 11-23-2023 History of Presen t illness Narrative [...] PATIENT PRESENTS WITH AN IMPLANTABLE OR ATTACHED MARKET SURVEY REPRESENTATIVE: No RADIOLOGY DEPARTMENT: MR; Exam(s) Completed: Head: Pituitary PERIPHERAL IV DATA: Site assessment: Clean,Dry and Intact, Site disposition Discontinued SIGNED BY: RT Anu(R) November 23, 2023 12:56 PM documented in this encounter [facility] 11-21-2023 Telephone encount er Note Updated clinical notes from [facility] Date collected 10/19/23 Date scanned in chart 11/21/23 Key Alanisam Shipping Lead II [facility] F-20 [facility] 11-21-2023 Miscellaneous Notes Formattin g of this note might be different from the original. Updated clinical notes from [facility] Date collected 10/19/23 Date scanned in chart 11/21/23 Key Meneses Shipping Lead II [facility] F-20 documented in this encounter [facility] 11-18-2023 Note HNO ID: [id number] Author: MONSERRAT NORTH MD Service: ? Author Type: Physician Type: Progress Notes Filed: 12/19/2023 23:05 Note Text: Endocrinology/Initial Pituitary Assessment Note: CC: Elevated prolactin Pituitary disorder History of Present Illness: Ms. Charly Foster is a 23 year old female coming today for evaluation of abnormal MRI finding. Referred By: SELF She had MRI done for migraines since the age of 6 years. She was getting botox from January 2022 to 2022 in the past for migraines. She has a constellation of symptoms including migraines, fatigue, generalized pain that can be so severe that she can't walk or work, trouble focusing and seeing things, constipation and abdominal pain, locking of legs and feels that she is stuck and can't walk, esophagus spasms, body aches, word finding difficulty and stuttering. She has a ahistory of PCOS. Her periods are occurring every 5 weeks or more. Denies galactorreha. Has very sensitive breasts. She has been on buspar since age 15 years. She has been zofran for the last month as needed. Patient Also described the following: Headaches:Yes, visual defects:Yes, increased thirst or urination:No,Nocturia: No, discharge from breast:No, painful breast: Yes, Breast swelling:No, increased head/hand or shoe size:No Darkening of skin/gums:No, salt craving:No, skin stretch michel:No, easy bruising:No, excess hair growth over face/chin/chest/or abdomen:No,difficulty raising arms overhead, difficulty getting up from a seated position:No Previous Pituitary Surgery: No Previous Radiotherapy: No Past Medical History: No past medical history on file. Surgical History: No past surgical history on file. Family Medical History: No family history on file. Social History: Social History Tobacco Use Smoking status: Never Smokeless tobacco: Never Vaping Use Vaping Use: current everyday user Substances: Nicotine Devices: Disposable Substance Use Topics Alcohol use: Yes Comment: rare Drug use: Never Allergies: ALLERGIES Allergen Reactions Codeine Hives, Other: See Comments confusion Other Reaction(s): Unknown confusion Atenolol Hives Cefuroxime Hives Ciprofloxacin GI Upset Other Reaction(s): Unknown Corticosteroids (Gl* Hives Metoclopramide Hives Other Reaction(s): Unknown Rizatriptan Hives Other Reaction(s): Unknown Sulfamethoxazole Hives Trimethoprim Hives Venlafaxine Hives Other Reaction(s): Unknown Current medications: Current Outpatient Medications Medication Sig ubrogepant (UBRELVY) 50 mg tablet Take 1 tablet by mouth as needed (migraine headache). busPIRone (BUSPAR) 10 mg tablet Take 1 tablet by mouth every 12 hours. ondansetron orally disintegrating (ZOFRAN ODT) 4 mg disintegrating tablet DISSOLVE 1 (ONE) TABLET ON THE TONGUE EVERY 8 HOURS NEEDED FOR NAUSEA AND VOMITING No current facility-administered medications for this visit. Review of Systems: SYSTEMIC: weight has been stable and low energy EYES: blurring Voice: normal NECK: normal RESPIRATORY: normal CARDIOVASCULAR: History of mild MV prolapse GASTRO-INTESTINAL: nausea, constipation, and abdominal pain NEUROLOGICAL: bilateral leg weakness MUSCULOSKELETAL: Muscle weakness and pain both legs SKIN: dryness PSYCHIATRIC: depression and anxiety LIBIDO: normal SEXUAL-REPRODUCTIVE: normal and cycle every ~5 weeks, Hot flashes: No Physical exam: BP 116/83 Pulse 104 Temp 36.5 ?C (97.7 ?F) (Temporal) Resp 18 Ht 166.1 cm (5' 5.39 ) Wt 49.2 kg (108 lb 7.5 oz) LMP 10/24/2023 (Exact Date) SpO2 99% BMI 17.83 kg/m? GENERAL: Well nourished, well hydrated, in no distress, and oriented x 3, Coarse Facial features:No, Facial Plethora: No. VOICE: normal EYES: no thyroid eye signs and PERRLA HENT: Macroglossia: No, Gap between Teeth: No, Prognathism: No NECK: no visible nodules or goiter, no tenderness, and no adenopathies THYROID: smooth, non-tender, and No palpable nodules Lungs: Lungs clear to auscultation. No wheezing, rhonchi, rales Heart: RRR without murmur, gallop, or rubs. Abdomen: Abdomen soft, non-tender.. No masses, organomegaly, Striae: No, Ecchymosis:No, EXTREMITIES: No clubbing and no edema, NEURO: Gait normal Previous laboratory results: Latest Ref Rng 11/17/2023 T4 5.5 - 10.2 ug/dL 7.4 T4 Uptake 0.91 - 1.19 1.00 FTI 5.3 - 10.8 ug/dL 7.4 Estradiol 17B pg/mL 92 Prolactin 4.5 - 26.8 ng/mL 75.1 (H) Progesterone See comment ng/mL 7.9 TSH 0.270 - 4.200 mIU/L 1.760 Growth Hormone <3.61 ng/mL 0.13 LH See comment mIU/mL 5.3 Insulin-like Growth Factor I 102 - 317 ng/mL 363 (H) FSH See comment mIU/mL 4.6 Free T4 0.9 - 1.7 ng/dL 1.5 Cortisol 4.8 - 19.5 ug/dL 13.5 ACTH 7.2 - 63.3 pg/mL 7.3 DHEA 1.330 - 7.780 ng/mL 2.677 Legend: (H) High Legend: (H) High Operative Report: N/A Pathology: N/A Imaging: MRI Brain w/wo JOSE J - 10/27/2023 ASSESSMENT/P (more content not included)... [facility] 11-18-2023 Instructions Monserrat North MD - 11/18/2023 10:17 AM EDT Please obtain a dedicated Pituitary MRI. Consult to IM and internal medicine to address other symptoms. Monserrat North MD., F.A.C.E. documented in this encounter [facility] 11-18-2023 Nurse Note Additional intake questions: Has the patient had fever, nausea, vomiting, diarrhea, constipation, fatigue for > 1 week? Yes, nausea, fatigue, and Provider Notified Does the patient have a decreased appetite? Yes Does patient want to see a Campus Wellness Coordinator? No (yes to any of above refer patient to schedulers for dietitian appointment) ) Does patient have any new or increased numbness or tingling of extremities? Yes, numbness in both hands. Is patient interested in fertility information? No Does patient need any prescription refills? No Does patient have an advanced directive in place? No, Patient referred to [facility] 11-18-2023 History of Presen t illness Narrative Images from the original note were not included. Endocrinology/Initial Pituitary Assessment Note: CC: Elevated prolactin Pituitary disorder History of Present Illness: Ms. Charly Foster is a 23 year old female coming today for evaluation of abnormal MRI finding. Referred By: SELF She had MRI done for migraines since the age of 6 years. She was getting botox from January 2022 to 2022 in the past for migraines. She has a constellation of symptoms including migraines, fatigue, generalized pain that can be so severe that she can't walk or work, trouble focusing and seeing things, constipation and abdominal pain, locking of legs and feels that she is stuck and can't walk, esophagus spasms, body aches, word finding difficulty and stuttering. She has a ahistory of PCOS. Her periods are occurring every 5 weeks or more. Denies galactorreha. Has very sensitive breasts. She has been on buspar since age 15 years. She has been zofran for the last month as needed. Patient Also described the following: Headaches:Yes, visual defects:Yes, increased thirst or urination:No,Nocturia: No, discharge from breast:No, painful breast: Yes, Breast swelling:No, increased head/hand or shoe size:No Darkening of skin/gums:No, salt craving:No, skin stretch michel:No, easy bruising:No, excess hair growth over face/chin/chest/or abdomen:No,difficulty raising arms overhead, difficulty getting up from a seated position:No Previous Pituitary Surgery: No Previous Radiotherapy: No Past Medical History: No past medical history on file. Surgical History: No past surgical history on file. Family Medical History: No family history on file. Social History: Social History Tobacco Use Smoking status: Never Smokeless tobacco: Never Vaping Use Vaping Use: current everyday user Substances: Nicotine Devices: Disposable Substance Use Topics Alcohol use: Yes Comment: rare Drug use: Never Allergies: ALLERGIES Allergen Reactions Codeine Hives, Other: See Comments confusion Other Reaction(s): Unknown confusion Atenolol Hives Cefuroxime Hives Ciprofloxacin GI Upset Other Reaction(s): Unknown Corticosteroids (Gl* Hives Metoclopramide Hives Other Reaction(s): Unknown Rizatriptan Hives Other Reaction(s): Unknown Sulfamethoxazole Hives Trimethoprim Hives Venlafaxine Hives Other Reaction(s): Unknown Current medications: Current Outpatient Medications Medication Sig ubrogepant (UBRELVY) 50 mg tablet Take 1 tablet by mouth as needed (migraine headache). busPIRone (BUSPAR) 10 mg tablet Take 1 tablet by mouth every 12 hours. ondansetron orally disintegrating (ZOFRAN ODT) 4 mg disintegrating tablet DISSOLVE 1 (ONE) TABLET ON THE TONGUE EVERY 8 HOURS NEEDED FOR NAUSEA AND VOMITING No current facility-administered medications for this visit. Review of Systems: SYSTEMIC: weight has been stable and low energy EYES: blurring Voice: normal NECK: normal RESPIRATORY: normal CARDIOVASCULAR: History of mild MV prolapse GASTRO-INTESTINAL: nausea, constipation, and abdominal pain NEUROLOGICAL: bilateral leg weakness MUSCULOSKELETAL: Muscle weakness and pain both legs SKIN: dryness PSYCHIATRIC: depression and anxiety LIBIDO: normal SEXUAL-REPRODUCTIVE: normal and cycle every ~5 weeks, Hot flashes: No Physical exam: BP 116/83 Pulse 104 Temp 36.5 C (97.7 F) (Temporal) Resp 18 Ht 166.1 cm (5' 5.39 ) Wt 49.2 kg (108 lb 7.5 oz) LMP 10/24/2023 (Exact Date) SpO2 99% BMI 17.83 kg/m GENERAL: Well nourished, well hydrated, in no distress, and oriented x 3, Coarse Facial features:No, Facial Plethora: No. VOICE: normal EYES: no thyroid eye signs and PERRLA HENT: Macroglossia: No, Gap between Teeth: No, Prognathism: No NECK: no visible nodules or goiter, no tenderness, and no adenopathies THYROID: smooth, non-tender, and No palpable nodules Lungs: Lungs clear to auscultation. No wheezing, rhonchi, rales Heart: RRR without murmur, gallop, or rubs. Abdomen: Abdomen soft, non-tender.. No masses, organomegaly, Striae: No, Ecchymosis:No, EXTREMITIES: No clubbing and no edema, NEURO: Gait normal Previous laboratory results: Latest Ref Rng 11/17/2023 T4 5.5 - 10.2 ug/dL 7.4 T4 Uptake 0.91 - 1.19 1.00 FTI 5.3 - 10.8 ug/dL 7.4 Estradiol 17B pg/mL 92 Prolactin 4.5 - 26.8 ng/mL 75.1 (H) Progesterone See comment ng/mL 7.9 TSH 0.270 - 4.200 mIU/L 1.760 Growth Hormone <3.61 ng/mL 0.13 LH See comment mIU/mL 5.3 Insulin-like Growth Factor I 102 - 317 ng/mL 363 (H) FSH See comment mIU/mL 4.6 Free T4 0.9 - 1.7 ng/dL 1.5 Cortisol 4.8 - 19.5 ug/dL 13.5 ACTH 7.2 - 63.3 pg/mL 7.3 DHEA 1.330 - 7.780 ng/mL 2.677 Legend: (H) High Legend: (H) High Operative Report: N/A Pathology: N/A Imaging: MRI Brain w/wo JOSE J - 10/27/2023 ASSESSMENT/PLAN: 23-year-old female here for elevation of prolactin and a prominent pituitary gland with prominence of the pituitary stalk. Today I discussed with her that since the periods are occurring regularly and there is no galactorrhea, we do not need to treat the elevated prolactin which I believe is more than likely due to medication effect of the BuSpar as well as intermittent use of Zofran. Regarding the prominent pituitary, I independently reviewed images with the patient's and I do not see any defined pituitary lesions. The pituitary gland can display variations in size and shape across different age and gender populations. Physiological hypertrophy of the pituitary gland evidenced by a pituitary height of more than 9 mm may be observed during puberty, , young woman and after menopause. The IGF-I is elevated but I do not believe this represents pathology given that the gold hormone is low. PLAN: Please obtain a dedicated Pituitary MRI. Consult to IM and internal medicine to address other symptoms. All the patient`s questions were answered. The patient expressed understanding of all the information relayed and has agreed to this plan. I spent a total of 60 minutes on the date of the service which included preparing to see the patient, [id number] patient care, completing clinical documentation, obtaining and/or reviewing separately obtained history, performing a medically appropriate examination, counseling and educating the patient/family/caregiver, ordering medications, tests, or procedures, communicating with other HCPs (not separately reported), independently interpreting results (not separately reported), communicating results to the patient/family/caregiver and care coordination (not separately reported). SIGNATURE: Monserrat North MD DATE of SERVICE: November 18, 2023 TIME of SERVICE: 6:07 AM documented in this encounter [facility] 11-18-2023 Nurse Note Additional intake questions: Has the patient had fever, nausea, vomiting, diarrhea, constipation, fatigue for > 1 week? Yes, nausea, fatigue, and Provider Notified Does the patient have a decreased appetite? Yes Does patient want to see a Campus Wellness Coordinator? No (yes to any of above refer patient to schedulers for dietitian appointment) ) Does patient have any new or increased numbness or tingling of extremities? Yes, numbness in both hands. Is patient interested in fertility information? No Does patient need any prescription refills? No Does patient have an advanced directive in place? No, Patient referred to [facility] documented in this encounter [facility] 11-16-2023 Telephone encount er Note Call placed to Charly Foster. Discussed appointment on Tuesday with Dr. North. She tells me she was referred due to abnormal MRI findings. MRI is available for review in [facility]. She has not had pituitary lab work completed. Explained lab work will help have a more productive appointment. I will place orders and she can have them completed at any [facility] lab prior to 9 am. She is going to try to have them completed tomorrow morning. Instructed to refrain from sexual activity or nipple stimulation 12 hours prior to obtaining labs. Understands not to take any steroids the morning of lab work. All questions answered at this time. Gil Reyes RN Sr. Director November 16, 2023 [facility] 11-16-2023 Miscellaneous Notes Formattin g of this note might be different from the original. Call placed to Charly Foster. Discussed appointment on Tuesday with Dr. North. She tells me she was referred due to abnormal MRI findings. MRI is available for review in [facility]. She has not had pituitary lab work completed. Explained lab work will help have a more productive appointment. I will place orders and she can have them completed at any [facility] lab prior to 9 am. She is going to try to have them completed tomorrow morning. Instructed to refrain from sexual activity or nipple stimulation 12 hours prior to obtaining labs. Understands not to take any steroids the morning of lab work. All questions answered at this time. Gil Reyes RN Sr. Director November 16, 2023 documented in this encounter [facility] 07-05-2023 Evaluation note Encounter Date Diagnosis [...] Suspected COVID-19 virus infection (ICD-10 - Z20.822) [facility] Other 12-01-2023 Evaluation note* Encounter Date Diagnosis [...] aware. Advised follow above treatment plan recommendations [facility] Other 10-19-2023 Evaluation note* Encounter Date Diagnosis Assessment Notes Treatment Notes Treatment Clinical Notes Apr, Acute non-recurrent maxillary sinusitis (ICD-10 - J01.00) Take medication as prescribed. Humidification, saline nose spray, Neti pot suggested for sinus relief. OTC acetaminophen/ibup rofen for pain. May continue OTC decongestants/anti histamines. [facility] Other 06-24-2023 Evaluation note* Encounter Date Diagnosis [...] no improvement in 2 to 3 days. [facility] Other 02-23-2023 Evaluation note* Encounter Date Diagnosis [...] even if you start to feel better. [facility] Other 02-17-2023 Evaluation note* Encounter Date Diagnosis [...] of diseases classified elsewhere (ICD-10 - B96.89) [facility] Other 11-21-2022 Evaluation note* Encounter Date Diagnosis [...] of diseases classified elsewhere (ICD-10 - B96.89) [facility] Other 06-14-2022 NotePROCEDURE: XR ANKLE LT MIN [...] Electronically authenticated by: GREGORY KLEIN Date: 2022-01-05 16:37[facility]06-14-2022 NotePROCEDURE: XR ANKLE LT MIN 3 [...] Electronically authenticated by: GREGORY KLEIN Date: 2022-01-05 16:37[facility]11-20-2021 Evaluation note* Encounter Date Diagnosis Assessment [...] Patient care instructions given in writting by [employer] [facility] document [facility] Other 10-03-2021 Evaluation note* Encounter Date Diagnosis [...] Patient care instructions given in writting by [facility] document. [facility] Other Evaluation noteNo assessment information available [facility] Work Phone: Evaluation noteNo [place] Other Evaluation note* Diagnosis Onset Date Resolution Status Fatigue acute Mitral valve disorder acute Nausea & vomiting acute [facility] Work Phone: Evaluation note* Diagnosis Onset Date Resolution Status Chronic constipation acute Fatigue acute Migraine acute Mitral valve disorder acute Nausea & vomiting acute Staring episodes acute Constipation acute Nausea acute Dyspepsia noneactive Celiac disease noneactive [facility] Work Phone: Evaluation note* Diagnosis 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 documented in this encounter [facility] note* Diagnosis Abnormal brain MRI Nonspecific (abnormal) findings on radiological and other examination of skull and head Pituitary adenoma (HCC) Benign neoplasm of pituitary gland and craniopharyngeal duct (pouch) Elevated prolactin level Unspecified endocrine disorder Pituitary disorder (HCC) Unspecified disorder of the pituitary gland and its hypothalamic control documented in this encounter [facility] note* Diagnosis Abnormal brain MRI- Primary Nonspecific (abnormal) findings on radiological and other examination of skull and head Pituitary adenoma (HCC) Benign neoplasm of pituitary gland and craniopharyngeal duct (pouch) Elevated prolactin level Unspecified endocrine disorder Pituitary disorder (HCC) Unspecified disorder of the pituitary gland and its hypothalamic control Generalized weakness Other malaise and fatigue Generalized pain Gait instability Abnormality of gait Generalized abdominal pain Abdominal pain, generalized Abnormal brain MRI Nonspecific (abnormal) findings on radiological and other examination of skull and head Pituitary adenoma (HCC) Benign neoplasm of pituitary gland and craniopharyngeal duct (pouch) Elevated prolactin level Unspecified endocrine disorder Pituitary disorder (HCC) Unspecified disorder of the pituitary gland and its hypothalamic control documented in this encounter [facility] general Narrative - Reported* Type Description Date Medical History concaved chest Medical History acne Medical History Mitral valve prolapse Medical History anxiety Medical History chronic depression Medical History migraine headache Medical History auto immune disorder unsure of n kosta Surgical History laparoscopy Hospitalization History see above [facility] Other [facility]isc[facility] general Narrative - Reported* Type Description Date Medical History concaved chest Medical History acne Medical History Mitral valve prolapse Medical History anxiety Medical History chronic depression Medical History migraine headache Medical History urticaria Surgical History laparoscopy Hospitalization History see above [facility] Other Hishxmf general Narrative - Reported* Type Description Date Medical History concaved chest Medical History acne Medical History Mitral valve prolapse Medical History anxiety Medical History chronic depression Medical History migraine headache Medical History urticaria Surgical History laparoscopy Surgical History repair ankle tendon Hospitalization History see above [facility] Other History general Narrative - Reported* Type Description Date Medical History concaved chest Medical History acne Medical History Mitral valve prolapse Medical History anxiety Medical History chronic depression Medical History migraine headache Medical History urticaria Medical History PCOS Surgical History laparoscopy Surgical History repair ankle tendon Hospitalization History see above [facility] Other Summary Purpose Family History Relationship Condition [...] BROTHERS CONSTIPATION, NAUSEA & VOMITING r27.0 r11.0 [facility] f/u, pain Reason for Visit Chronic constipation Fatigue Migraine Mitral valve disorder Nausea & vomiting Staring episodes Constipation Nausea Dyspepsia Celiac disease Reason for Referral Specialty Diagnoses / Procedures Referred By Connie crawford Referred To Contact Neurology Diagnoses Generalized weakness Generalized pain Gait instability Generalized abdominal pain Procedures CONSULT TO NEUROLOGY OFFICE/OUTPATIENT [facility] 60 MINUTES Monserrat North MD [address] [place] [address] Referral ID Status Reason Start Date Expiration Date V isits Requested Visits Authorized [id number] Closed PCP Requested Referral 11/18/2023 11/17/2024 1 1 Specialty Diagnoses / Procedures Referred By Contac t Referred To Contact INTERNAL MEDICINE Diagnoses Generalized weakness Generalized pain Gait instability Generalized abdominal pain Procedures ESTABLISH WITH PRIMARY CARE NEW PATIENT OFFICE/OUTPATIENT [facility] 60 MINUTES Monserrat North MD [facility] [place] [address] [facility] [address] [place] [address] Referral ID Status Reason Start Date Expiration Date Visits Requested Visits Authorized [id number] Authorized PCP Requested Referral 11/18/2023 11/17/2024 1 1 Specialty Diagnoses / Procedures Referred By Contac t Referred To Contact MR IMAGING Diagnoses Abnormal brain MRI Pituitary adenoma (HCC) Elevated prolactin level Pituitary disorder (HCC) Procedures MRI PITUITARY WO/W IVCON MRI BRAIN BRAIN STEM W/O W/CONTRAST MATERIAL Monserrat North MD [address] [place] [address] [facility] [place] [address] Referral ID Status Reason Start Date Expiration Date V isits Requested Visits Authorized [id number] Closed Auto-Generate d Referral 11/18/2023 12/17/2024 1 1 Specialty Diagnoses / Procedures Referred By Contac t Referred To Contact MR IMAGING Diagnoses Abnormal brain MRI Pituitary adenoma (HCC) Elevated prolactin level Pituitary disorder (HCC) Procedures MRI PITUITARY WO/W IVCON MRI BRAIN BRAIN STEM W/O W/CONTRAST MATERIAL Monserrat North MD [address] [place] [address] [facility] [place] [address] Referral ID Status Reason Start Date Expiration Date V isits Requested Visits Authorized [id number] Closed Auto-Generate d Referral 11/18/2023 12/17/2024 1 1 Additional Source Comments Source Comments (unrecognize d section and content) In the event this informatio n is protected by the Federal Confidentiality of Alcohol and Drug Abuse Patient Records regulations: The Federal rules restrict any use of the information to criminally investigate or prosecute any alcohol or drug abuse patient.[facility] the event this information is protected by the Federal Confidentiality of Alcohol and Drug Abuse Patient Records regulations: The Federal rules restrict any use of the information to criminally investigate or prosecute any alcohol or drug abuse patient.[facility] the event this information is protected by the Federal Confidentiality of Alcohol and Drug Abuse Patient Records regulations: The Federal rules restrict any use of the information to criminally investigate or prosecute any alcohol or drug abuse patient.[facility] the event this information is protected by the Federal Confidentiality of Alcohol and Drug Abuse Patient Records regulations: The Federal rules restrict any use of the information to criminally investigate or prosecute any alcohol or drug abuse patient.[facility] the event this information is protected by the Federal Confidentiality of Alcohol and Drug Abuse Patient Records regulations: The Federal rules restrict any use of the information to criminally investigate or prosecute any alcohol or drug abuse patient.[facility] the event this information is protected by the Federal Confidentiality of Alcohol and Drug Abuse Patient Records regulations: The Federal rules restrict any use of the information to criminally investigate or prosecute any alcohol or drug abuse patient.[facility] the event this information is protected by the Federal Confidentiality of Alcohol and Drug Abuse Patient Records regulations: The Federal rules restrict any use of the information to criminally investigate or prosecute any alcohol or drug abuse patient.[facility] INFORMATION SOURCE (unrecogn ized section and content) DATE CREATED AUTHOR 08/21/2021 [facility] DATE CREATED AUTHOR AUTHOR'S ORGANIZ ATION 12/06/2022 [facility] DATE CREATED AUTHOR AUTHOR'S ORGANIZ ATION 11/08/2023 [facility] DATE CREATED AUTHOR AUTHOR'S ORGANIZ ATION 12/19/2023 [facility] REASON FOR VISIT (unrecogniz ed section and content) Reason Comments Sr. Director - Other Reason Comments Received Outside Medical Records Reason Comments Radiology MRI Specialty Diagnoses / Procedures Referred By Contac t Referred To Contact MR IMAGING Diagnoses Abnormal brain MRI Pituitary adenoma (HCC) Elevated prolactin level Pituitary disorder (HCC) Procedures MRI PITUITARY WO/W IVCON MRI BRAIN BRAIN STEM W/O W/CONTRAST MATERIAL Monserrat North MD [address] [place] [address] [place] [address] Referral ID Status Reason Start Date Expiration Date V isits Requested Visits Authorized [id number] Closed Auto-Generate d Referral 11/18/2023 12/17/2024 1 1 Reason Comments Medication Question Reason Comments Patient Question Insurance informatio n for medication Reason Comments New Patient Care Teams (unrecognized sec tion and content) [...] 2023 Team Status: Inactive Member Role Status Carlitos Brothers MD Primary Care Provider Active Start: [...] 2023 Team Status: Inactive Member Role Status Carlitos Brothers MD Primary Care Provide r, Attending [...] BE BASED ON THE PRIMARY CLINICAL RECORDS. [facility]. provides no warranty or guarantee of the accuracy or completeness of information in this document.
[2024-01-02 15:29] VITALS: BP 105/65; PULSE 77; O2SAT 98
[2024-01-02 16:40] VITALS: BP 110/70; PULSE 80; TEMP 37; O2SAT 100
--- NOTE | 2024-01-02 16:40 | ED.GENADUL1 ---
HPI HPI - General Adult General Chief complaint: Extremity Problem, Nontraumatic Stated complaint: JAW PAIN NON TRAUMATIC Time Seen by Provider: 01/02/24 14:29 Source: patient Mode of arrival: walk-in History of Present Illness HPI narrative: Patient is a 23-year-old female who is presenting to the ER today with chief complaint Right-sided jaw pain Since Tuesday. Patient has not seen a dentist for many years, patient does not have any obvious dental pain.Patient is having pain to the right TMJ with radiation along the right mandible.Patient denies any type of trauma, falls to the face.Patient is having mild right ear pain.Patient has mild nausea with no vomiting. No fever or chills. She does not taste any foul taste in her mouth.No difficulty swallowing. She has no obvious signs of swelling or mass to the parotid or submental gland.Patient has no history of saliva stone.Patient went to the urgent care and she was directed to come to the ER for evaluation.She has no chest pain. No neck pain. No other acute complaints. Patient states that bilateral TMJ click when she opens and closes her mouth, this is not new. Patient also states that she has not had TMJ syndrome before, patient believes that she bites her teeth and clenches while she is sleeping at nighttime, does not feel that she is tensed during the day. She has been using ice and anti-inflammatories with no relief. She has not been using heat.Patient states that she is not .Patient took a home test over the weekend that was negative. All systems are negative except as noted/marked. All systems reviewed and otherwise negative. Nurses note and vital signs reviewed and patient is not hypoxic. General: The patient is comfortable, alert and oriented x3, well appearing, non toxic in no apparent distress. Head: Atraumatic and normocephalic. Eyes: Normal conjunctiva ENT: The oropharynx is normal. No pharyngeal erythema, uvular edema, tonsillar exudates, asymmetry or trismus. Uvula is midline. Mouth is normal to inspection Patient has signs of evidence of dental caries, But no tenderness to palpation of any of her teeth.. There is no evidence of facial asymmetry or abscess formation. Floor of the mouth is soft. No tenderness in the submental or submandibular space. No tongue elevation or deviation. The patient has no evidence of periapical abscess, gingivitis, ANUG or other acute pathology. Airway is patent. Patient does have moderate tenderness to the right TMJ, no tenderness to palpation to the left TMJ. Both Bilateral TMJ click when patient opens and closes her mouth, patient can feel that and she has had that for a long time. Neck: The neck demonstrates normal range of motion. No meningeals signs are present. No stridor. No masses or lymphandenopathy noted. Respiratory: No acute distress, lungs are clear to auscultation, no wheezing, rhonchi, or rales noted. No stridor or retractions are noted. Cardiovascular: Regular rate and rhythm Skin: The skin exam shows no evidence of rashes Neuro: Alert and oriented x4, normal speech Lymphatic: No cervical lymphadenopathy Related Data Home Medications ?Medication ?Instructions ?Recorded ?Confirmed albuterol sulfate 90 mcg/actuation 2 puff inhalation Q6H PRN 08/08/23 08/08/23 aerosol inhaler shortness of breath or wheezing buspirone 10 mg tablet 10 mg PO BID 08/08/23 08/08/23 Previous Rx's ?Medication ?Instructions ?Recorded hydrocodone 5 mg-acetaminophen 325 1 tab PO Q4H PRN pain #10 tabs 01/02/24 mg tablet prednisone 20 mg tablet 20 mg PO BID 5 days #10 tabs 01/02/24 Allergies Allergy/AdvReac Type Severity Reaction Status Date / Time acetaminophen [From Fioricet] Allergy Severe Verified 08/08/23 20:09 butalbital [From Fioricet] Allergy Severe Verified 08/08/23 20:09 caffeine [From Fioricet] Allergy Severe Verified 08/08/23 20:09 ciprofloxacin [From Cipro] Allergy Severe Verified 08/08/23 20:09 codeine Allergy Severe Verified 08/08/23 20:09 [From Tylenol-Codeine #3] metoclopramide [From Reglan] Allergy Severe Verified 08/08/23 20:09 Opioid HPI Opioid Management Most Recent Opioid Data: Last Pain Scale 8 01/02/24 15:30 Last ED Pain Assessment 01/02/24 15:30 Exam Constitutional Vital Signs, click to edit/add: Last Vital Signs Temp 98.6 F 01/02/24 16:40 Pulse 80 01/02/24 16:40 Resp 16 01/02/24 16:40 BP 110/70 06/10/24 16:40 Pulse Ox 100 01/02/24 16:40 O2 Del Method Room Air 01/02/24 16:40 Course Vital Signs Vital signs: Vital Signs Temperature 98.5 F 01/02/24 12:22 Pulse Rate 85 01/02/24 12:22 Respiratory Rate 18 01/02/24 12:22 Blood Pressure 117/80 01/02/24 12:22 Pulse Oximetry 99 01/02/24 12:22 Oxygen Delivery Method Room Air 01/02/24 12:22 Temperature 98.6 F 01/02/24 16:40 Pulse Rate 80 01/02/24 16:40 Respiratory Rate 16 01/02/24 16:40 Blood Pressure 110/70 01/02/24 16:40 Pulse Oximetry 100 01/02/24 16:40 Oxygen Delivery Method Room Air 01/02/24 16:40 Medical Decision Making MDM Narrative Medical decision making narrative: Patient was given a short course of steroids to help with possible TMJ syndrome. Patient has moderate tenderness to palpation to the right TMJ. Patient has no obvious signs of saliva stone. Patient has no obvious signs of dental abscess or any type of dental pathology. Patient was given a dental list and referred to follow-up with dentist. Patient was told that she can also go to aspirin and [facility].Patient says that she does not like [facility]. Patient has no acute indication for antibiotics. Patient was educated on using soft diet. Patient will call up withDentist, PCP, and also use ice to the area to help with pain Discharge Plan Discharge Stand Alone Forms: Portal Instructions Chief Complaint: Extremity Problem, Nontraumatic Clinical Impression: Atypical face pain, Right-sided temporomandibular joint pain-dysfunction syndrome Patient Disposition: Home, Self-Care Time of Disposition Decision: 16:40 Condition: Fair Prescriptions / Home Meds: New prednisone 20 mg tablet 20 mg PO BID 5 Days Qty: 10 0RF hydrocodone-acetaminophen 5-325 mg tablet 1 tab PO Q4H PRN (Reason: pain) Qty: 10 0RF No Action albuterol sulfate 90 mcg/actuation HFA aerosol inhaler 2 puff INHALATION Q6H PRN (Reason: shortness of breath or wheezing) buspirone 10 mg tablet 10 mg PO BID Print Language: Luxembourgish Instructions: Temporomandibular Disorder (ED), Atypical Facial Pain (ED) Additional Instructions: Use ice 20 minutes on, 20 minutes off. Soft diet for the next 3 to 5 days as discussed Increase fluids at home, Gatorade, Powerade, or water. Alternate Tylenol and Motrin every 4 hours to help with fever control, body aches or joint pain. Use [id number] vitamin C, vitamin D3, and zinc to help fight infection and help with her immune system. You must follow-up with a dentist for a complete dental evaluation as discussed at bedside as well for possible source of pain. Referrals: Judith Lindquist MD [Primary Care Provider] - 1 week Discharge Date/Time: 01/02/24 16:45
== END 2024-01-02 16:45 | disposition home or self-care (01) ==
PROVIDERS: Emergency Provider Emergency Medicine; PCP Family Medicine
DX: M26.601 Right temporomandibular joint disorder, unspecified (principal); G50.1 Atypical facial pain
CPT/HCPCS: 99283

== ENCOUNTER 2024-01-10 16:39 | Outpatient (RCR) | payer BC, SELFPAY ==
--- OUTSIDE RECORDS SUMMARY | 2024-01-10 16:51 | XMS_ITS ---
Patient Summarization (C-CDA 2.1 CCD) Created on: January 10, 2024 Charly Foster : 2000 Sex: Female Author Organization Sample organization Care Team Providers Care Customer Success Associate Name Role Phone Pcp, No Primary Care [...] FERRER Consulting Unavailable OMAIRA Gillette Attending Provider Adriana Stallworth Unavailable NO FAMILY, PHYSICIAN Primary Care Provider Unava ilable LALO Stallworth Attending Provider [phone] MD [facility] Primary Care Provider [phone] DO Bentley Byrne Attending Provider LALO Bailey Attending Provider Unavailable Primary Care Provider UnavailHUSSEIN Mckeon Attending Unavailable YOGI-MORREN, MONSERRAT Referring Unavailable YOGIgnacio-HAILEYREN, MONSERRAT Referring Unavailable ELIJAH MONSERRAT Attending Unavailable KATE-SAMMIE, MONSERRAT Referring Unavailable MD Kya Hoskins Attending Provider NO FAMILY, PHYSICIAN Primary Care Unavailable Adriana Stallworth Admitting Unavailable Adriana Stallworth Attending Unavailable Reji Bailey Attending Unavailable [employer] Primary Care Unavailable Reji Bailey Admitting Unavailable Kay Gillette Attending Unavailable NO FAMILY, PHYSICIAN Primary Care Unavailable Kay Gillette Admitting Unavailable [employer] Primary Care Unavailable Kya Hoskins Attending Unavailable Kya Hoskins Admitting Unavailable [facility] [employer] Primary Care Unavailable Bentley Byrne Admitting Unavailab le Bentley Byrne Attending Unavailab le Allergies Allergy Classification Reported Allergen(s) Allergy Type Date of Onset Reaction(s) Facility (20 sources) Ciprofloxacin; Translations: [CIPROFLOXACIN] Drug Allergy 02-16-20 23 GI Upset [facility] (20 sources) Codeine; Translations: [CODEINE] Drug Allergy 09-19-19 15 Hives, Other: See [facility] (13 sources) venlafaxine; Translations: [Effexor] Drug Allergy 09-17-19 20 swelling/shaki ng [facility] (10 sources) Atenolol; Translations: [ATENOLOL] Drug Allergy 10-10-19 24 Unknown, [facility] Repository (9 sources) Cefuroxime; Translations: [CEFUROXIME] Drug Allergy 10-10-[address] [facility] Repository (2 sources) Ciprofloxacin Drug Allergy very nauseous [facility] (1 source) Codeine Drug Allergy 04-21-20 13 [facility] (4 sources) Iothalamate Drug Allergy 09-17-19 20 Unknown [facility] (2 sources) Perazine Drug Allergy Unknown [facility] (4 sources) predniSONE Drug Allergy 01-24-20 19 Unknown [facility] (4 sources) Sulfamethoxazole / Trimethoprim Drug Allergy Unknown [facility] (8 sources) Atenolol Drug Allergy 10-21-19 24 [facility] (11 sources) Cefuroxime Drug Allergy 09-24-19 18 [facility] Other (3 sources) Codeine Drug Allergy Unknown [facility] Other (16 sources) rizatriptan; Translations: [RIZATRIPTAN] Drug Allergy 02-16-[address] [facility] (16 sources) venlafaxine; Translations: [VENLAFAXINE] Drug Allergy 02-16-[address] [facility] (3 sources) corticosteroid and/or corticosteroid derivative (FN) Drug allergy Unknown [facility] Other (1 source) Cefuroxime Drug Allergy Unknown [facility] Other (1 source) Codeine Drug Allergy sensitive over dose as a child [facility] Other (1 source) venlafaxine Drug Allergy Unknown [facility] Other (13 sources) Corticosteroids; Translations: [CORTICOSTEROIDS (GLUCOCORTICOIDS)] Allergy to substance 10-10-[address] [facility] (15 sources) Metoclopramide; Translations: [METOCLOPRAMIDE] Drug Allergy 02-16-[address] [facility] (15 sources) Sulfamethoxazole; Translations: [SULFAMETHOXAZOLE] Drug Allergy 10-10-[address] [facility] (15 sources) Trimethoprim; Translations: [TRIMETHOPRIM] Drug Allergy 10-10-[address] [facility] (1 source) Atenolol Drug Allergy 01-06-20 [facility] (1 source) Cefuroxime Drug Allergy 01-06-20 [facility] (1 source) Ciprofloxacin Drug Allergy 01-06-20 [facility] (1 source) Codeine Drug Allergy 01-06-20 [facility] (1 source) rizatriptan Drug Allergy 01-06-20 [facility] (1 source) venlafaxine Drug Allergy 01-06-20 [facility] Repository Encounters Encounter Date Encounter Type Care Provider Facility Start: 01-06-2024 End: 01-06-2024 ambulatory MD [facility] Work Phone: [facility] Work Phone: Start: 01-06-2024 End: 01-06-2024 Patient encounter procedure MD [employer] Work Phone: [facility] Work Phone: Start: 12-12-2023 Telephone encounter Hussein henderson MD Work Phone: Neurology Comment on above: Medication Question Patient Question (In surance information for medication ) Start: 12-09-2023 End: 12-09-2023 Office outpatient new 45 minutes Hussein Browne MD Work Phone: Neurology Comment on above: Generalized weakness (Primary Dx); Generalized pain; Gait instability; Generalized abdominal pain; Intractable migraine with aura without status migrainosus Start: 12-09-2023 End: 12-09-2023 ambulatory HUSSEIN BROWNE Facility:[facility] Start: 12-05-2023 End: 12-05-2023 ambulatory MD [employer] Work Phone: [facility] Work Phone: Start: 12-05-2023 End: 12-05-2023 Patient encounter procedure MD [employer] Work Phone: [facility] Work Phone: Start: 11-23-2023 End: 11-23-2023 ambulatory MONSERRAT NORTH Facility:[facility] Start: 11-23-2023 End: 11-23-2023 Subsequent hospital visit by physician Mri [facility] [place] (Lg Bore/1.5t) Radiology MRI Comment on above: Abnormal brain MRI [ R90.89] Start: 11-21-2023 Telephone encounter Monserrat Sparrow MD Work Phone: Endocrinology Comment on above: Received Outside Med ical Records Start: 11-18-2023 End: 11-18-2023 ambulatory MONSERRAT NORTH Facility:[facility] Start: 11-18-2023 End: 11-18-2023 Patient encounter procedure Monserrat North MD Work Phone: Endocrinology Comment on above: Abnormal brain MRI ( Primary Dx); Pituitary adenoma (HCC); Elevated prolactin level; Pituitary disorder (HCC); Generalized weakness; Generalized pain; Gait instability; Generalized abdominal pain Start: 11-17-2023 End: 11-17-2023 ambulatory MONSERRAT NORTH Facility:[facility] Start: 11-16-2023 Telephone encounter Monserrat Sparrow MD Work Phone: [facility] Comment on above: 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 Presser - O ther Start: 11-07-2023 End: 11-07-2023 Patient encounter procedure MD [employer] Work Phone: [facility] [place] Work Phone: Start: 11-07-2023 End: 11-07-2023 ambulatory MD [employer] Work Phone: [facility] Work Phone: Start: 10-27-2023 End: 10-27-2023 Patient encounter procedure MD [employer] Work Phone: [facility] [place] Work Phone: Start: 10-27-2023 End: 10-27-2023 ambulatory MD [employer] Work Phone: [facility] Work Phone: Start: 10-21-2023 End: 10-21-2023 ambulatory [facility] Work Phone: Start: 10-21-2023 End: 10-21-2023 Patient encounter procedure [facility] Work Phone: Start: 10-10-2023 End: 10-10-2023 ambulatory [facility] Work Phone: Start: 10-10-2023 End: 10-10-2023 Patient encounter procedure [facility] Work Phone: Start: 08-23-2023 End: 08-23-2023 [facility] encounter procedure [facility] Start: 07-05-2023 End: 07-05-2023 ambulatory Kay Gillette Other [facility] Other Start: 07-05-2023 Office outpatient visit 15 minutes Kay Gillette [facility] Start: 06-24-2023 Office outpatient visit 15 minutes Adriana Stallworth [facility] Start: 06-24-2023 End: 06-24-2023 Patient encounter procedure PHYSICIAN NO [facility] [place] Work Phone: Start: 06-24-2023 End: 06-24-2023 ambulatory PHYSICIAN NO Counts include 234 beds at the [facility] Other Start: 05-12-2023 (Televisit) Televisit Monster Malloy [facility] Start: 05-12-2023 End: 05-12-2023 ambulatory [facility] Other [facility] Other Start: 01-17-2023 End: 01-17-2023 ambulatory Kay Gillette Other [facility] Other Start: 01-17-2023 Telephone encounter Kay Gillette [facility] Start: 01-15-2023 Office outpatient visit 15 minutes Kay Gillette [facility] Start: 01-15-2023 Telephone encounter [facility] Start: 01-15-2023 End: 01-15-2023 ambulatory Kay Gillette [facility] Other Start: 01-15-2023 End: 01-15-2023 Departed Referred [employer] Kay Gillette Work Phone: [facility] [place] Work Phone: Start: 12-02-2022 End: 12-02-2022 ambulatory ANA RUBIO . Facility: Start: 09-16-2022 (Televisit) Televisit Monster Malloy [facility] Start: 09-16-2022 End: 09-16-2022 ambulatory [facility] Other [facility] Other Start: 09-10-2022 End: 09-10-2022 ambulatory Kay Gillette Other [facility] Other Start: 09-10-2022 Office outpatient visit 15 minutes Kay Gillette [facility] Start: 06-14-2022 End: 06-14-2022 ambulatory Kay Gillette Other [facility] Other Start: 06-14-2022 Office outpatient visit 15 minutes Kay Gillette [facility] Start: 01-05-2022 End: 01-06-[address] [facility] Facility:[facility] Start: 06-13-2021 End: 06-13-2021 ambulatory Adriana Martin Other [facility] Other Start: 06-13-2021 Office outpatient visit 15 minutes Adriana Tetepineda [facility] Start: 04-26-2021 Office outpatient visit 15 minutes Kay Gillette [facility] Start: 10-29-2020 End: 10-29-2020 Patient encounter procedure Verito Wilkerson Work Phone: [facility] Start: 10-29-2020 Results Only Verito hua Work Phone: Gastroenterology Immunizations Immunization Date Immunization Notes Care Provider Karl ashley 04-06-2017 meningococcal oligosaccharide (groups A, C, Y and W-135) diphtheria toxoid conjugate vaccine (MCV4O) [facility] Other [facility] Medications Current Medications Medication Drug Class(es) Dates Sig (Normalized) Sig (Original) [id number] 200 actuat albuterol 0.09 mg/actuat metered dose inhaler (10 sources) beta2-Adrenergic Agonist Start: 10-07-2023 End: 01-06-2024 take 2 puff(s) by inhalation four times daily as needed Albuterol Sulfate Active 2 PUFF INHALATION Four times daily January 06, 2024 9:31am [employer] puffs Inhalation 4 times a day [...] Start: 09-16-2022 take 1 capsule by mo ut every eight hours Benzonatate 200 MG 1 capsule Orally Three times a day for 10 day(s) Aug, Active busPIRone (20 sources) Start: 12-22-2023 take 1 tablet by zachary th twice daily Buspirone Active 0 .ROUTE .COMPLEX 60 December 22, 2023 8:40am TAKE 1 TABLET BY MOUTH TWICE DAILY Start: 11-01-2023 take 1 tablet by zachary th every twelve hours busPIRone (BUSPAR) 10 mg tablet Take 1 tablet by mouth every 12 hours. 0 11/01/2023 Active Start: 10-07-2023 End: 12-22-2023 take 1 tablet by mouth twice daily Buspirone Discontinued 1 TAB PO Twice daily October 07, 2023 12:00am December 22, 2023 8:40am FreeText[employer]: TAKE 1 TABLET BY MOUTH TWICE [...] Active ondansetron 4 mg disintegrating oral tablet (18 sources) Serotonin-3 Receptor Antagonist Start: 10-14-2023 End: 10-21-2023 take 4 mg by mouth every eight hours Ondansetron Active 4 MG PO Every 8 hours October 21, 2023 9:47am pantoprazole 40 mg delayed release oral tablet (6 sources) Proton Pump Inhibitor Start: 10-21-2023 take 1 tablet by mouth once daily Pantoprazole (Protonix) 40 mg tablet,delayed release (DR/EC) Active 40 MG PO Daily October 21, 2023 12:00am propranolol hydrochloride 10 mg oral tablet (2 sources) beta-Adrenergic Cindi Start: 01-06-2024 take 10 mg by mouth twice daily Propranolol Active 10 MG PO Twice daily 60 January 06, 2024 12:00am ubrogepant 50 mg oral tablet (3 sources) Start: 12-09-2023 ubrogepant (UBRELVY) 50 mg tablet Take 1 [...] Start: 09-10-2022 take 1 capsule by mo [facility] every eight hours Amoxicillin 500 MG 1 capsule Orally three times a day for 10 day(s) Aug, Not-Taking Start: 06-14-2022 take 1 capsule by mo ut every eight hours Amoxicillin 500 MG 1 capsule Orally three times a day for 10 day(s) May, Active cyproheptadine hydrochloride 4 mg oral tablet (14 sources) Start: 10-07-2023 End: 10-10-2023 take 4 [...] Not-Taking/PRN phenazopyridine hydrochloride 200 mg oral tablet (14 sources) Start: 10-07-2023 End: 10-10-2023 take 1 [...] Topamax Active Payers Date Payer Category Payer Unknown [employer] SS PPO [id number] 2023-Present [phone] [address] [place] [address] PPO [id number] 2023 [employer] [id number] 2023 Self-pay [id number] 2016 Unknown [employer] BLUE CARD PPO [id number] 2016-Present PPO [id number] 1999 Unknown [id number] 1999 Unknown [id number] [id number] 1960 [facility] [[email or web address]] [id number] Private Health Insurance [facility] [id number] Unknown [id number] Unknown [id number] [id number] Unknown [id number] 2.531 Unknown [id number]. 2.531 Unknown [id number] 2.531 Unknown [id number] [id number] Plan of Treatment Date Care Activity Detail Author Start: 03-25-2024 Influenza vaccination Influenza Vaccine (Season Ended) [facility] Start: 01-06-2024 [facility] Start: 12-09-2023 End: 12-09-2023 ambulatory 12/09/2023 3:[address] [facility] Neurology [address] [address] Hussein Browne MD [address] [place], [place] [id number] Generalized weakness [R53.1]; Generalized pain [R52]; Gait instability [R26.81]; Generalized abdominal pain Neurology Comment on above: Generalized weakness [R53.1]; Generalize d pain [R52]; Gait instability [R26.81]; Generalized abdominal pain Start: 12-09-2023 End: 03-09-2024 Cobalamin (Vitamin B12) [Mass/volume] in Serum or Plasma VITAMIN B12 Lab Routine Expected: 12/09/2023, Expires: 03/09/2024 [facility] Comment on above: Expected: 12/09/2023, Expires: Start: 12-09-2023 End: 03-09-2024 Creatine kinase [Enzymatic activity/volume] in Serum or Plasma CREATINE KINASE/CK Lab Routine Expected: 12/09/2023, Expires: 03/09/2024 [facility] Work Phone: Comment on above: Expected: 12/09/2023, Expires: Start: 11-23-2023 End: 11-15-2024 Corticotropin [Mass/volume] in [...] or Plasma ESTRADIOL-17B BLD Lab Routine Hypophysitis (HCC) Expected: 11/23/2023 (Approximate), Expires: 11/15/2024 [facility] Work Phone: Comment on above: Expected: 11/23/2023 (Approximate), Expi res: 11/15/2024 Start: 11-23-2023 End: 11-15-2024 Follitropin [Units/volume] in Serum or Plasma FOLLICLE STIMULATING HORMONE Lab Routine Hypophysitis ([facility]) Expected: 11/23/2023 (Approximate), Expires: 11/15/2024 [facility] Comment on above: Expected: 11/23/2023 (Approximate), Expi res: 11/15/2024 Start: 11-23-2023 End: 11-15-2024 INSULIN LIK GR FAC I INSULIN LIK GR FAC I Lab Routine Hypophysitis ([facility]) Expected: 11/23/2023 (Approximate), Expires: 11/15/2024 [facility] Comment on above: Expected: 11/23/2023 (Approximate), Expi res: 11/15/2024 Start: 11-23-2023 End: 11-15-2024 Lutropin [Units/volume] in Serum or Plasma LUTEINIZING HORMONE Lab Routine Hypophysitis ([facility]) Expected: 11/23/2023 (Approximate), Expires: 11/15/2024 [facility] Comment on above: Expected: 11/23/2023 (Approximate), Expi res: 11/15/2024 Start: 11-23-2023 End: 11-15-2024 Progesterone [Mass/volume] in Serum or Plasma PROGESTERONE Lab Routine Hypophysitis ([facility]) Expected: 11/23/2023 (Approximate), Expires: 11/15/2024 [facility] Comment on above: Expected: 11/23/2023 (Approximate), Expi res: 11/15/2024 Start: 11-23-2023 End: 11-15-2024 Prolactin [Mass/volume] in Serum or Plasma PROLACTIN Lab Routine Hypophysitis ([facility]) Expected: 11/23/2023 (Approximate), Expires: 11/15/2024 [facility] Comment on above: Expected: 11/23/2023 (Approximate), Expi res: 11/15/2024 Start: 11-23-2023 End: 11-15-2024 Somatostatin [Mass/volume] in Plasma GROWTH HORMONE Lab Routine Hypophysitis (HCC) Expected: 11/23/2023 (Approximate), Expires: 11/15/2024 [facility] Comment on above: Expected: 11/23/2023 (Approximate), Expi res: 11/15/2024 Start: 11-23-2023 End: 11-15-2024 T4/FTI/T4U T4/FTI/T4U Lab Routine Hypophysitis (HCC) Expected: 11/23/2023 (Approximate), Expires: 11/15/2024 [facility] Comment on above: Expected: 11/23/2023 (Approximate), Expi res: 11/15/2024 Start: 11-23-2023 End: 11-15-2024 Thyrotropin [Units/volume] in Serum or Plasma THYROID STIMULATING HORMONE Lab Routine Hypophysitis (HCC) Expected: 11/23/2023 (Approximate), [...] Radiology MRI [address] [place] [address] Abnormal brain MRI [R90.89]; Pituitary adenoma (HCC) [D35.2]; Elevated prolactin level [R79.89]; Pituitary disorder (HCC) [E23.7] Radiology MRI Comment on above: Abnormal brain MRI [R90.89]; Pituitary a denoma (HCC) [D35.2]; Elevated prolactin level [R79.89]; Pituitary disorder (HCC) [E23.7] Start: 11-18-2023 End: 11-18-2023 Patient encounter procedure 11/18/2023 9:00 AM EDT Office Visit Endocrinology [address] [place] [address] Monserrat North MD [address] [place] [address] Pituitary Disease; pit panel ordered and pt aware Endocrinology Comment on above: Pituitary Disease; pit panel ordered and pt aware Start: 10-10-2023 Patient referral [facility] Work Phone: Start: 07-25-2023 Behavioral Health Screening Behavioral Health Screening [facility] Start: 03-25-2023 Covid-19 Vaccine ( season) Covid-19 Vaccine () [facility] Start: 03-25-2023 Covid-19 Vaccine () Covid-19 Vaccine () [facility] Start: 01-15-2023 Bacteria identified in Urine by Culture [facility] Start: 2020 PAP TESTING PAP TESTING [facility] Start: 2020 Screening for malignant neoplasm of cervix [facility] Start: 03-25-2020 Influenza vaccination INFLUENZA (#1) [facility] Start: 2018 Hepatitis B Vaccine (1 of 3 - 19+ 3-dose series) Hepatitis B Vaccine (1 of 3 - 19+ 3-dose series) [facility] Start: 2018 Urine microalbumin profile [facility] Start: 2017 CHLAMYDIA SCREENING (18-24) CHLAMYDIA SCREENING (18-24) [facility] Start: 2017 GC (GONORRHEA) SCREENING [...] free [Mas s/volume] in Serum or Plasma [facility] Fluoroscopy of upper gastrointestinal tract [facility] Patient referral [facility] Work Phone: PT ED PATIENT INFORMATION PT ED PATIENT INFORMATION Other 10/29/2020 [facility] US Heart Transthoracic [facility] Cl[facility] Problems Active Problems Problem Classification Problem Date Documented Da te Episodic/Chronic Abdominal pain (9 sources) Epigastric pain; Translations: [Dyspepsia and other specified disorders of function of stomach] Onset: 12-09-2023 10-21-2023 Episodic Bacterial infection; unspecified site (2 sources) Other specified bacterial agents as the cause of diseases classified elsewhere Episodic Cardiac dysrhythmias (4 sources) Palpitations; Translations: [Palpitations] 01-06-2024 Episodic Chronic obstructive pulmonary disease and bronchiectasis (1 source) Bronchitis, not specified as acute or chronic Episodic Conditions associated with dizziness or vertigo (12 sources) Dizziness; Translations: [Dizziness] Episodic E Codes: Natural/environment (1 source) Overexertion from prolonged static or awkward postures, initial encounter; Translations: [OVEREXERT PROLNG STAT/AWK PST INIT] Onset: 12-06-2022 Episodic Headache; including migraine (16 sources) Migraine; Translations: [Migraine, unspecified, not intractable, without status migrainosus] Onset: 12-09-2023 10-10-2023 Chronic Heart valve disorders (19 sources) Mitral valve disorder; Translations: [Rheumatic mitral valve disease, unspecified] Onset: 01-06-2024 10-10-2023 Chronic Immunizations and screening for infectious disease (14 sources) Contact with and (suspected) exposure to other viral communicable diseases; Translations: [Contact with and (suspected) exposure to other viral communicable diseases Z20.828] Onset: 04-26-2021 Resolved: 06-13-2021 Episodic Malaise and fatigue (17 sources) Fatigue; Translations: [Other fatigue] Onset: 12-09-2023 10-10-2023 Episodic Menstrual disorders (3 sources) Missed period; Translations: [Irregular menstruation, unspecified] Chronic Nausea and vomiting (20 sources) Nausea and vomiting; Translations: [Nausea with [...] gland, unspecified] 11-23-2023 Chronic Other gastrointestinal disorders (6 sources) Celiac disease; Translations: [Celiac disease] 10-21-2023 Chronic Other gastrointestinal disorders (6 sources) Chronic constipation; Translations: [Other constipation] 10-10-2023 Episodic Other gastrointestinal disorders (4 sources) Constipation; Translations: [Constipation, unspecified] 10-21-2023 Episodic Other gastrointestinal disorders (8 sources) Other constipation; Translations: [Constipation, unspecified] 10-10-2023 Episodic Other gastrointestinal disorders (4 sources) Constipation, unspecified; Translations: [Constipation, unspecified] 10-21-2023 Episodic Other injuries and conditions due to external causes (1 source) Injury, unspecified, initial encounter Episodic Other nervous system disorders (2 sources) Abnormal gait; Translations: [Unsteadiness on feet] 11-18-2023 Episodic Other nervous system disorders (1 source) [...] conditions (not mental disorders or infectious disease) (6 sources) Magnetic resonance imaging of brain abnormal; Translations: [Other abnormal findings on diagnostic imaging of central nervous system] Onset: 12-19-2023 11-23-2023 Episodic Other upper respiratory disease (12 sources) Allergic rhinitis; Translations: [Allergic rhinitis, unspecified] Chronic Other upper respiratory infections (20 sources) Acute sinusitis; Translations: [Sinusitis acute] Onset: 04-26-2021 Resolved: 06-13-2021 Episodic Residual codes; unclassified (6 sources) Staring; Translations: [Transient alteration of awareness] 10-10-2023 Episodic Residual codes; unclassified (8 sources) Transient alteration of awareness; Translations: [Transient alteration of awareness] 10-10-2023 Episodic Residual codes; unclassified (2 sources) Generalized aches and pains; Translations: [Pain, unspecified] 11-18-2023 Episodic Residual codes; unclassified (1 source) Pain, unspecified; Translations: [Generalized pain] Onset: 12-09-2023 Episodic Sprains and strains (1 source) Sprain [...] Test Name Value Interpretation Reference Range Facility [facility] 12-12-2023 CNPN Telephone (SPNMED) CHARLY FOSTER ([id number]) 2000 F Date Time Provider Department 12/12/23 [...] Fully Assessed Reason for Visit: Patient Question [1637] Cmt: Insurance information for medication Prescriptions as [...] Encounter Status:Closed by ANDRIA CARDONA [facility] CHARLY FOSTER ([id number]) 2000 F Date Time Provider Department 12/12/23 HUSSEIN BROWNE NEURMM During your visit today, we recorded the following information about you: Lawrence Kinsey, KEMAR 12/12/2023 11:29 AM Signed Kandice Garcia, [employer], [place], [place] left message on nurse line for provider today with medication question regarding recent prescription for Ubrelvy 50 mg. Tablets. You sent over a prescription for 16 tablets but the medication comes in a box of 10 and we do not split boxes. I was wondering if you could change the quantity to a value of 10. Spoke to Pharmacist at [employer] who was advised that 16 is the maximum monthly rail express clerk recommended dose. They have started prior authorization [...] Unknown Date Reviewed: 11/23/2023 Reviewed by: Evelyn Zamora, KEMAR - Fully Assessed Reason for Visit: Medication [...] Status:Closed by LAWRENCE KINSEY on 12/12/23 Normal [facility] MR Pituitary and Sella turci ca WO and W contrast Olga 11-23-2023 Radiology Study observation (narrative) [facility] IMPRESSION: No pituitary lesion. Adenohypophysis is within normal size limits for age and gender. Advertising Layout Worker: ADRIÁN Transcribe Date/Time: Nov 23 2023 2:00P Dictated by : DANNIE TYLER, This examination was interpreted and the report reviewed and electronically signed by: DANNIE TYLER DO on Nov 23 2023 2:08PM [facility] DIVISION OF RADIOLOGY * * *Final Report* * * DATE OF EXAM: Nov 23 2023 1:22PM [facility] 0314 - MRI PITUITARY WO/W IVCON [...] underlying skull base. DIVISION OF RADIOLOGY Provider, [facility] - 11/23/2023 * * *Final Report* * * DATE OF EXAM: Nov 23 2023 1:22PM [facility] 0314 - MRI PITUITARY WO/W IVCON [...] normal size limits for age and gender. Advertising Layout Worker: ADRIÁN Transcribe Date/Time: Nov 23 2023 2:00P Dictated by : DANNIE TYLER DO This examination was interpreted and the report reviewed and electronically signed by: DANNIE TYLER DO on Nov 23 2023 2:08PM [facility] MR Pituitary and Sella turci ca WO and W contrast IVOrdered By: Ccf Provider on 11-23-2023 [facility] MRI PITUITARY WO/W IVCONon 0 11-23-2023 MRI PITUITARY WO/W IVCON * * *Final Report* * * DATE OF EXAM: Nov 23 2023 1:22PM [facility] 0314 - MRI PITUITARY WO/W IVCON [...] normal size limits for age and gender. Advertising Layout Worker: PSCB Transcribe Date/Time: Nov 23 2023 2:00P Dictated by : DANNIE TYLER DO This examination was interpreted and the report reviewed and electronically signed by: DANNIE TYLER DO on Nov 23 2023 2:08PM EST [id number] Normal [facility] CNPRajni 11-21-2023 CNPN Telephone (ENDOMN) CHARLY FOSTER ([id number]) 2000 F Date Time Provider Department 11/21/23 [facility] During your visit today, we recorded the following information about you: Key Moore 11/21/2023 6:16 PM Signed Updated clinical notes from [facility] Date collected 10/19/23 Date scanned in chart 11/21/23 Key Meneses Manager Science II [facility] F-20 [facility] MD 12/01/2023 4:53 [...] Unknown Date Reviewed: 11/18/2023 Reviewed by: Gil Reyes RN - Fully Assessed Reason for Visit: [...] Encounter Status:Closed by KEY MOORE on 11/21/23 [facility] CNOVon 11-18-2023 CNOV Office Visit (ENDPMN ) CHARLY FOSTER ([id number]) 2000 F Date Time Provider Department 11/18/23 9:00 AM [facility] During your visit today, we recorded the following information about you: Temperature Pulse Respiration Blood pressure 97.7 degrees 104/minute 18/minute 116/83 Weight Height Last Period 49.2 kg 1.661 m 10/24/23 [facility] oNrth MD 12/19/2023 11:05 PM Signed Endocrinology/Initial Pituitary [...] 5.3 Insulin-lik (more content not included)... Normal [facility] ACTH Plas-mCncon 11-17-2023 Corticotropin (P) [Mass/Vol] 7.3 pg/mL Normal 7.2-63.3 [facility] Comment on above: Order Comment: Speci men Type: BLOOD SPECIMEN Ordering Facility: [facility] Address: [address] [place] [address] Result Comment: ACTH Reference Range: 7-10 am: 7.2 - 63.3 pg/mL Performed By: #### 2 141-0 #### [facility] CLIA [id number] [address] [place] [address] [place] Cortis SerPl-ncon 11-17-19 Cortisol [Mass/Vol] 13.5 ug/dL Normal 4.8-19.5 [facility] Comment on above: Order Comment: Speci men Type: BLOOD SPECIMEN Ordering Facility: [facility] Address: [address] [place] [address] Result Comment: Prov ided reference range is from 6-10 AM sample collection time. Cortisol Reference Range: 6-10 AM = 4.8-19.5 ug/dL, 4-8 PM = 2.5-11.9 ug/dL Performed By: #### I LGF1 #### [facility] CLIA [id number] [address] [place] [address] [place] DHEA BLOODon 11-17-2023 DHEA 2.677 ng/mL Normal 1.330-7.780 [facility] Comment on above: Order Comment: Speci men Type: BLOOD SPECIMEN Ordering Facility: [facility] Address: [address] [place] [address] Result Comment: INTERPRETIVE INFORMATION: Dehydroepiandrosterone, Females 18 years and older: Postmenopausal: 0.60-5.73 ng/mL REFERENCE INTERVAL: Dehydroepiandrosterone by TMS Access complete set of age- and/or gender-specific reference intervals for this test in the [facility] Test Directory ([employer]). This test was developed and its performance characteristics determined by [facility]. It has not been cleared or approved by the US Food and Drug Administration. This test was performed in a CLIA certified laboratory and is intended for clinical purposes. Performed By: [facility] [address] [place] [address] Supervisor [employer]: Josse Gardiner MD, PhD CLIA Number: [id number] Performed By: #### I LGF1 #### [facility] CLIA [id number] [address] [place] [address] [place] Estradiol SerPl-mCncon 11-16 E2 [Mass/Vol] 92 pg/mL Normal [facility] Comment on above: Order Comment: Speci men Type: BLOOD SPECIMEN Ordering Facility: [facility] Address: [address] [place] [address] Result Comment: This test is not suitable [...] 3243 pg/mL Second trimester : 1561 to 57438 pg/mL Third trimester : 8285 to >23960 pg/mL Post-menopausal Estradiol reference range: < 41 pg/mL Reference: 1. Estradiol - E2 (Estradiol III) [package insert V 3.0 Urdu]. [facility], [place], [place], December 2015. Performed By: #### I LGF1 #### [facility] CLIA [id number] [address] [place] [address] [place] FSH SerPl-aCncon 11-17-2023 Follitropin Qn 4.6 m[IU]/mL Normal See comment [facility] Comment on above: Order Comment: Speci men Type: BLOOD SPECIMEN Ordering Facility: [facility] Address: [address] [place] [address] Result Comment: Refe rence range: Follicular: 3.5-12.5 mIU/mL Ovulation: 4.7-21.5 mIU/mL Luteal: 1.7-7.7 mIU/mL Postmenopausal: 25.8-134.8 mIU/mL Performed By: #### I LGF1 #### [facility] CLIA [id number] [address] [place] [address] [place] INSULIN LIK GR FAC Ion 11-16 INSULIN LIK GR FAC 1 363 ng/mL High 102-317 [facility] Comment on above: Order Comment: Speci men Type: BLOOD SPECIMEN Ordering Facility: [facility] Address: [address] [place] [address] Performed By: #### I LGF1 #### [facility] CLIA [id number] [address] [place] [address] [place] LH SerPl-aCncon 11-17-2023 Lutropin Qn 5.3 m[IU]/mL Normal See comment [facility] Comment on above: Order Comment: Speci men Type: BLOOD SPECIMEN Ordering Facility: [facility] Address: [address] [place] [address] Result Comment: Refe rence range: Follicular: 2.4-12.6 mIU/mL Midcycle: 14.0-95.6 mIU/mL Luteal: 1.0-11.4 mIU/mL Post [place]: 7.7-58.5 mIU/mL Performed By: #### 2 141-0 #### [facility] CLIA [id number] [address] [place] [address] [place] Progest SerPl-mCncon 024 Progesterone [Mass/Vol] 7.9 ng/mL Normal See comment [facility] Comment on above: Order Comment: Speci men Type: BLOOD SPECIMEN Ordering Facility: [facility] Address: [address] [place] [address] Result Comment: Mens trual Cycle Progesterone Reference Ranges: Follicular: <1.0 ng/mL Ovulation: <12.1 ng/mL Luteal: 1.8 to 23.9 ng/mL. Progesterone Reference Ranges vary by gestational period: First Trimester: 11.0 to 44.3 ng/mL Second Trimester: 25.4 to 83.3 ng/mL Third Trimester: 58.7 to 214 ng/mL Post menopausal Progesterone: <0.5 ng/mL Reference: 1. Progesterone (Progesterone III) [package insert V 1.0 Urdu]. [facility], [place], [place]. April 2015. Performed By: #### 2 141-0 #### [facility] CLIA [id number] [address] [place] [address] [place] Prolactin SerPl-mCncon 11-16 Prolactin [Mass/Vol] 75.1 ng/mL High 4.5-26.8 [facility] Comment on above: Order Comment: Speci men Type: BLOOD SPECIMEN Ordering Facility: [facility] Address: [address] [place] [address] Result Comment: Prol actin test is performed using the [facility] Electrochemiluminescence Immunoassay method. Results obtained with different methods or kits cannot be used interchangeably. Performed By: #### 2 141-0 #### [facility] CLIA [id number] [address] [place] [address] [place] Somatostat Plas-mCncon 11-16 Somatostatin (P) [Mass/Vol] 0.13 ng/mL Normal <3.61 [facility] Comment on above: Order Comment: Speci men Type: BLOOD SPECIMEN Ordering Facility: [facility] Address: [address] [place] [address] Performed By: #### 2 961-1 #### [facility] CLIA [id number] [address] [place] [address] [place] T4 Free SerPl-mCncon 04-25-2 024 Free T4 [Mass/Vol] 1.5 ng/dL Normal 0.9-1.7 [facility] Comment on above: Order Comment: Speci men Type: BLOOD SPECIMEN Ordering Facility: [facility] Address: [address] [place] [address] Performed By: #### I LGF1 #### [facility] CLIA [id number] [address] [place] [address] [place] T4/FTI/T4Uon 11-17-2023 FTI 7.4 ug/dL Normal 5.3-10.8 [facility] Comment on above: Order Comment: Speci men Type: BLOOD SPECIMEN Ordering Facility: [facility] Address: [address] [place] [address] Performed By: #### I LGF1 #### [facility] CLIA [id number] [address] [place] [address] [place] T4 [Mass/Vol] 7.4 ug/dL Normal 5.5-10.2 [facility] Comment on above: Order Comment: Speci men Type: BLOOD SPECIMEN Ordering Facility: [facility] Address: [address] [place] [address] Performed By: #### I LGF1 #### [facility] CLIA [id number] [address] [place] [address] [place] T4 uptake [Mass/Vol] 1.00 Normal 0.91-1.19 [facility] Comment on above: Order Comment: Speci men Type: BLOOD SPECIMEN Ordering Facility: [facility] Address: [address] [place] [address] Performed By: #### I LGF1 #### [facility] CLIA [id number] [address] [place] [address] [place] TSH SerPl-aCncon 11-17-2023 TSH Qn 1.760 m[IU]/L Normal 0.270-4.200 [facility] Comment on above: Order Comment: Speci men Type: BLOOD SPECIMEN Ordering Facility: [facility] Address: [address] [place] [address] Result Comment: If t he patient is , TSH reference range varies by gestational period: First Trimester (weeks 9-12): 0.180-2.990 mIU/L Second Trimester: 0.110-3.980 mIU/L Third Trimester: 0.480-4.710 mIU/L Antonio Arias et al. A Practical Approach for the Verifications and Determination of Site- and Trimester-Specific Reference Intervals for Thyroid Function tests in . Thyroid, 2019:29:3:412-420. Massimo Howell, et al. 2017 Guidelines of the [place] Thyroid Association for the Diagnosis and Management of Thyroid Disease during and the . Thyroid, 2017:27:3:315-389. Performed By: #### I LGF1 #### [facility] CLIA [id number] [address] [place] [address] OF [facility] [place] 11-16-2023 CNPN Telephone (NSCAMN) CHARLY FOSTER ([id number]) 2000 F Date Time Provider Department 11/16/23 [facility] During your visit today, we recorded the following information about you: Gil Reyes RN 11/16/2023 9:41 AM Signed Call placed to Charly Foster. Discussed appointment on Tuesday with Dr. North. She tells me she was referred due to abnormal MRI findings. MRI is available for review in [facility]. She has not had pituitary lab [...] answered at this time. Gil Reyes RN Piece Presser November 16, 2023 Allergies As of Date: 11/16/2023 (Not on File) Date Reviewed: Never Reviewed Reason for Visit: Piece Presser - Other [3602] Primary Visit Diagnosis:Hypophysitis (HCC) [E23.6] Order(s):ESTRADIOL-17B BLD [SQE2] Order #: [id number] FUTURE PROLACTIN [SQPROL] Order #: [id number] FUTURE PROGESTERONE [SQPROG] Order #: [id number] FUTURE THYROID STIMULATING HORMONE [SQTSH] Order #: [id number] FUTURE GROWTH HORMONE [SQGH] Order #: [id number] FUTURE LUTEINIZING HORMONE [SQLH] Order #: [id number] FUTURE INSULIN LIK GR FAC I [SQILGF1] Order #: [id number] FUTURE FOLLICLE STIMULATING HORMONE [SQFSH] Order #: [id number] FUTURE T4 FREE/FREE THYROXINE [SQFT4] Order #: [id number] FUTURE CORTISOL, SERUM [SQCOR] Order #: [id number] FUTURE ACTH BLD [SQACTH] Order #: [id number] FUTURE T4/FTI/T4U [NPK3TQQ] Order #: [id number] FUTURE DHEA BLOOD [SQDHEA] Order #: [id number] FUTURE Problem List As Of Date: 11/16/2023 (None) Encounter Status:Closed by GIL REYES on 11/16/23 Normal [facility] FL esophagus ugion 4 FL esophagus ugi [facility] [place] [address] Fluoroscopy Report Signed Patient: Charly Foster MR#: [id number] 1015 : 2000 Acct:[id number] Age/Sex: 23 / F ADM Date: 11/07/23 Loc: XD Room: Type: [facility] Attending Dr: Reji Bailey APRN Copies to: Reji Bailey APRN Ordering Provider: Reji Bailey APRN Date of Service: 11/07/23 FL/FL esophagus ugi: R11.0 - Nausea DOUBLE CONTRAST UPPER GI SERIES CLINICAL HISTORY: Nausea, upper abdominal pain. Dysphagia. COMPARISON: None TECHNIQUE: Double contrast upper GI series was performed. Cumulative Air Kerma in mGy: 104.63 mGy FINDINGS: [place] Line Attendant image demonstrates no acute findings. No esophageal [...] ENDOSCOPY. Impression dictated by: Bautista Bowser Jr., D.OSimeon11/07/2023 12:54 PM Dictation Location: [place] [address] Transcribed By: [facility] 11/07/23 1254 Dictated By: Bautista Bowser Jr, DO 11/07/23 1250 Signed By: 11/07/23 1254 Normal [facility] MR head/brain wo/w conon MR head/brain wo/w con [facility] Main [place] [address] [place] [address] MRI Report Signed Patient: Charly Foster MR#: [id number] 1015 : 2000 Acct:[id number] Age/Sex: 23 / F ADM Date: 10/27/23 Loc: Room: Type: [facility] Attending Dr: Bentley Byrne DO Copies [...] Puneet Patrick M.D.10/27/2023 7:53 PM Dictation Location: [place] [address] Transcribed By: [facility] 10/27/231952 Dictated By: Puneet Patrick II, MD 10/27/231944 Signed By: 10/27/231952 Normal [facility] Basophils Auto (Bld) [#/Vol] on 10-10-2023 Basophils (Bld) [#/Vol] 0.1 10 3/uL 0.0-0.1 [facility] Basophils/100 WBC Auto (Bld) on 10-10-2023 Basophils/100 WBC (Bld) 0.5 % 0.2-2.0 [facility] Eosinophils/100 WBC Auto (Bl d)on 10-10-2023 Eosinophils/100 WBC (Bld) 0.8 % 0.9-7.0 [facility] Erythrocyte distribution wid th Auto (RBC) [Ratio]on 10-10-2023 Erythrocyte distribution width (RBC) [Ratio] 12.3 % 11.0-15.0 [facility] Estimated glomerular filtrat ion rate (GFR) non- Americanon 10-10-2023 GFR/1.73 sq M.predicted among non-blacks MDRD (S/P/Bld) [Vol rate/Area] mL/min/{1.73_m2} >=60 [facility] Hematocrit Auto (Bld) [Volum e fraction]on 10-10-2023 Hematocrit (Bld) [Volume fraction] 43.6 % 36.0-48.0 [facility] Hemoglobin [Mass/volume] in Bloodon 10-10-2023 Hemoglobin (Bld) [Mass/Vol] 15.0 g/dL 12.0-16.0 [facility] Laboratory - Chemistry and C hemistry - challengeon 10-10-2023 Calcium [Mass/Vol] 8.4 mg/dL 8.5-10.1 [facility] Chloride [Moles/Vol] 104 mmol/L 98-107 [facility] CO2 [Moles/Vol] 27.2 mmol/L 21.0-32.0 [facility] Creatinine [Mass/Vol] 0.81 mg/dL 0.55-1.02 [facility] GFR/1.73 sq M.predicted MDRD (S/P/Bld) [Vol rate/Area] mL/min/{1.73_m2} >=60 [facility] Glucose [Mass/Vol] 98 mg/dL 74-106 [facility] Potassium [Moles/Vol] 3.7 mmol/L 3.5-5.1 [facility] Sodium [Moles/Vol] 140 mmol/L 136-145 [facility] TSH Qn 0.840 m[IU]/L 0.358-3.740 [facility] Urea nitrogen [Mass/Vol] 10.0 mg/dL 7.0-18.0 [facility] Urea nitrogen/Creatinin e [Mass ratio] 12.3 mg/mg [facility] Laboratory - Hematology and Cell countson 10-10-2023 ESR (Bld) [Velocity] 4 mm/h <=20 [facility] Immature granulocytes/100 WBC (Bld) 0.1 % 0.0-0.5 [facility] Leukocytes [#/volume] correc jeri for nucleated erythrocytes in Blood by Automated counon 10-10-2023 WBC corrected for nucl RBC Auto (Bld) [#/Vol] 11.0 10 3/uL 4.0-11.0 [facility] Lymphocytes Auto (Bld) [#/Vo l]on 10-10-2023 Lymphocytes (Bld) [#/Vol] 2.0 10 3/uL 1.2-3.8 [facility] Lymphocytes/100 WBC Auto (Bl d)on 10-10-2023 Lymphocytes/100 WBC (Bld) 17.9 % 20.5-60.0 [facility] MCH Auto (RBC) [Entitic mass ]on 10-10-2023 MCH (RBC) [Entitic mass] 31.2 pg 26.7-34.0 [facility] MCHC Auto (RBC) [Mass/Vol]on 10-10-2023 MCHC (RBC) [Mass/Vol] 34.4 g/dL 29.9-35.2 [facility] MCV Auto (RBC) [Entitic vol] on 10-10-2023 MCV (RBC) [Entitic vol] 90.6 fL 81.0-99.0 [facility] Monocytes Auto (Bld) [#/Vol] on 10-10-2023 Monocytes (Bld) [#/Vol] 0.8 10 3/uL 0.3-0.8 [facility] Monocytes/100 WBC Auto (Bld) on 10-10-2023 Monocytes/100 WBC (Bld) 6.9 % 1.7-12.0 [facility] Neutrophils Auto (Bld) [#/Vo l]on 10-10-2023 Neutrophils (Bld) [#/Vol] 8.1 10 3/uL 1.4-6.5 [facility] Neutrophils/100 WBC Auto (Bl d)on 10-10-2023 Neutrophils/100 WBC (Bld) 73.8 % 43.0-75.0 [facility] No Panel Informationon 10-09 Eosinophils # (Auto) 0.1 10 3/uL 0.0-0.7 [facility] Immature Granulocyte # (Auto) 0.01 10 3/uL 0.00-0.03 [facility] Platelet mean volume Auto (B ld) [Entitic vol]on 10-10-2023 Platelet mean volume (Bld) [Entitic vol] 10.2 fL 9.5-13.5 [facility] Platelets Auto (Bld) [#/Vol] on 10-10-2023 Platelets (Bld) [#/Vol] 262 10 3/uL 150-450 [facility] RBC Auto (Bld) [#/Vol]on RBC (Bld) [#/Vol] 4.81 10 6/uL 4.20-5.40 [facility] Serum or plasma anion gap de terminationon 10-10-2023 Anion gap [Moles/Vol] 12.5 mmol/L [facility] Serum or plasma free cefurox madeline measurement (mass/volume)on 10-10-2023 Cefuroxime free [Mass/Vol] Negative Negative [facility] Comment on above: Performed at: [address] Director: Garret Bledsoe PhD, Phone: [phone] COVID + FLU Quick Testingon 07-05-2023 SARS-CoV-2 (COVID-19) RNA FRANKLIN+probe Ql (Unsp spec) Negative [facility] Other COVID + FLU Quick Testing Negative [facility] Other Test, Urineon 0 Beta HCG ( test) Ql (U) Negative [facility] Other XR hand RT min 3V*on 023 XR hand RT min 3V* [facility] Main [place] [id number] XRay Report Signed Patient: Charly Foster MR#: [id number] 1015 : 2000 Acct:[id number] Age/Sex: 23 / F ADM Date: 06/24/23 Loc: XDUCLY Room: Type: [facility] Attending Dr: Adriana Stallworth APRN Copies [...] Saul Staton M.D.06/24/2023 10:17 AM Dictation Location: [place] [address] Transcribed By: [facility] 06/24/23 1017 Dictated By: Saul Staton DO 06/24/23 1015 Signed By: 06/24/23 1017 Normal [facility] XR hand RT min 3V* [facility] Other XR hand RT min 3V* [facility] Other XR hand RT min 3V* [address] [place] [address] [facility] Other XR hand RT min 3V* [place] [address] [facility] Other XR hand RT min 3V* XRay Report [facility] Other XR hand RT min 3V* Signed [facility] Other XR hand RT min 3V* Patient: Milan Foster MR#: [id number] [facility] Other XR hand RT min 3V* 1015 [facility] Other XR hand RT min 3V* : 2000 Acct:[id number] [facility] Other XR hand RT min 3V* Age/Sex: 23 / F ADM Date: 06/24/23 [facility] Other XR hand RT min 3V* Loc: XDUCLY Room: pe: [facility] Other XR hand RT min 3V* Attending Dr: Adriana Stallworth [facility] Other XR hand RT min 3V* Copies to: Adriana silva APRN [facility] Other XR hand RT min 3V* Ordering Provider: Luther Stallworth APRN [facility] Other XR hand RT min 3V* Date of Service: 06/24/23 [facility] Other XR hand RT min 3V* [id number]) XR/XR hand RT min 3V*: Injury [facility] Other XR hand RT min 3V* 3 views right hand p lucila film [facility] Other XR hand RT min 3V* COMPARISON: None [facility] Other XR hand RT min 3V* HISTORY: Right hand injury [facility] Other XR hand RT min 3V* ACUTE FINDINGS: None [facility] Other XR hand RT min 3V* DEGENERATIVE CHANGE: Unremarkable [facility] Other XR hand RT min 3V* SOFT TISSUE FINDINGS : Unremarkable [facility] Other XR hand RT min 3V* JOINT EFFUSION: None [facility] Other XR hand RT min 3V* POSTOP CHANGES: None [facility] Other XR hand RT min 3V* BONY MINERALIZATION: Adequate [facility] Other XR hand RT min 3V* X R/XR hand RT min 3V* [facility] Other XR hand RT min 3V* IMPRESSION: No acute findings [facility] Other XR hand RT min 3V* Impression dictated by: Saul Staton M.D.06/24/2023 10:17 AM [facility] Other XR hand RT min 3V* Dictation Location: [facility]- [facility] Other XR hand RT min 3V* Transcribed By: JONATHAN 06/24/23 1017 [place] [employer] Other XR hand RT min 3V* Dictated By: Yung Staton DO 06/24/23 1015 [place] [employer] Other XR hand RT min 3V* Signed By: [facility] Other XR hand RT min 3V* 06/24/23 1017 [facility] [employer] Other Urinalysis - AUTOMATEDon Appearance (U) cloudy [employer] Other Bilirubin Ql (U) small [employer] [facility] Other Color (U) adriana [facility] Other Glucose Ql (U) Negative [employer] Other Hemoglobin Ql (U) large [employer] Other Ketones Ql (U) Negative [employer] Other Leukocyte esterase Test strip Ql (U) large [facility] Other Nitrite Ql (U) Positive [employer] Other pH (U) 6.5 [pH] [facility] Other Protein Ql (U) >300 [employer] Other Specific gravity (U) [Rel density] >1.030 [facility] Other Urobilinogen (U) [Mass/Vol] 1.0 mg/dL [facility] Other Urinalysis - AUTOMATED [facility] Other Urine Cultureon 01-15-2023 Bacteria identified Cx Nom (U) [facility] Other Bacteria identified Cx Nom (U) Reason for Exam Dysuria Urine 50,000 colonies/ml mixed bacterial skin contaminants 2 Days PERFORMED BY: [place] [id number] PATHOLOGIST LAUNCH LEADER YECENIA WHITE M.D. Normal [facility] Comment on above: Performed By: #### C UU #### [facility] [address] [id number] [facility] URon 12-02-2022 , QUAL Negative Normal NEGATIVE [facility] Comment on above: Performed By: #### P REGU #### [facility] [address] [id number] [address] Corie Frias XR ANKLE LT MIN [...] by: JES SHEIKH Date: 2022-12-02 19:[address] [facility] XR FOOT LT MIN 3 VIEWSon [...] by: JES SHEIKH Date: 2022-12-02 19:[address] [facility] COVID + FLU Quick Testingon 09-10-2022 SARS-CoV-2 (COVID-19) RNA FRANKLIN+probe Ql (Unsp spec) Negative [facility] Other COVID + FLU Quick Testing Negative [facility] Other Quick Strepon 09-10-2022 S. pyogenes Org specific cx Ql (Throat) Negative [facility] Other Quick Strep [facility] Other COVID/FLU RT-PCRon 2 SARS-CoV-2 (COVID-19) RNA FRANKLIN+probe Ql (Unsp spec) Negative [facility] Other COVID/FLU RT-PCR Negative [facility] Other Progress Noteon 08-20-2021 Tube Builder Authentication Interface Message Text Previous Diagnoses: 1. [...] [facility] She had a laparoscopy procedure and [...] valve pr (more content not included)... Normal [facility] COVID Quick Testingon 2020 Result Negative [facility] Other Social History Date Type Detail Facility Start: 11-18-2023 Tobacco use and exposure Smokeless tobacco non-user [facility] Start: 11-18-2023 Alcohol intake Current drinke r of alcohol (finding) [facility] Start: 11-18-2023 Alcohol Comment [facility] Start: 10-21-2023 End: 01-06-2024 Tobacco smoking status NHIS Smoker (finding) [facility] Start: 11-28-2020 End: 11-18-2023 Sex Assigned At [facility] Start: 11-28-2020 End: 11-18-2023 History of Social function [facility] Start: 06-08-2017 End: 11-18-2023 Tobacco smoking status NHIS Never smoked tobacco (finding) [facility] Start: 1999 Sex Assigned At Not on file C [facility] Start: 1999 Sex Assigned At Female F [facility] Tobacco smoking status NHIS Unknown if ever smoked [facility] Tobacco smoking status WVIS Tobacco smoking consumption unknown [facility] National Score (1-100), lower number is lower risk Not on file [facility] Vital Signs Date Time Vital Sign Value Performing Clinician Facility 01-06-2024 09:35-0400 Body height 165.1 cm MD [employer] Work Phone: [facility] 01-06-2024 09:35-0400 Body mass index (BMI) [Ratio] 17.6 kg/m2 MD [employer] Work Phone: [facility] 01-06-2024 09:35-0400 Body weight 48.08 kg MD [employer] Work Phone: [facility] 01-06-2024 09:35-0400 Diastolic blood pressure 78 mm[Hg] MD [employer] Work Phone: [facility] 01-06-2024 09:35-0400 Heart rate 105 /min MD [employer] Work Phone: [facility] 01-06-2024 09:35-0400 Respiratory rate 18 /min MD [employer] Work Phone: [facility] 01-06-2024 09:35-0400 SaO2% (BldA) [Mass fraction] 98 % MD [employer] Work Phone: [facility] 01-06-2024 09:35-0400 Systolic blood pressure 100 mm[Hg] MD [employer] Work Phone: [facility] 12-05-2023 10:52-0400 Body height 165.1 cm MD [employer] Work Phone: [facility] 12-05-2023 10:52-0400 Body mass index (BMI) [Ratio] 17.9 kg/m2 MD [employer] Work Phone: [facility] 12-05-2023 10:52-0400 Body weight 48.7 kg MD [employer] Work Phone: [facility] 12-05-2023 10:52-0400 Diastolic blood pressure 73 mm[Hg] MD [employer] Work Phone: [facility] 12-05-2023 10:52-0400 Heart rate 109 /min MD [employer] Work Phone: [facility] 12-05-2023 10:52-0400 Systolic blood pressure 102 mm[Hg] MD [employer] Work Phone: [facility] 11-18-2023 09:01-0400 Body height 166.1 cm [...] Hospital 10-21-2023 09:33-0400 Body height 165.1 cm [facility] 10-21-2023 09:33-0400 Body mass index (BMI) [Ratio] 18.3 kg/m2 [facility] 10-21-2023 09:33-0400 Body weight 49.89 kg [facility] 10-10-2023 13:00-0400 Body height 165.1 cm [facility] 10-10-2023 13:00-0400 Body mass index (BMI) [Ratio] 18.1 kg/m2 [facility] 10-10-2023 13:00-0400 Body weight 49.44 kg [facility] 10-10-2023 13:00-0400 Diastolic blood pressure 78 mm[Hg] [facility] 10-10-2023 13:00-0400 Heart rate 76 /min [facility] 10-10-2023 13:00-0400 Systolic blood pressure 112 mm[Hg] [facility] 08-23-2023 11:30-0500 Body height 165.1 cm [facility] 08-23-2023 11:30-0500 Body weight 50.71 kg [facility] 08-23-2023 11:30-0500 Diastolic blood pressure 73 mm[Hg] [facility] 08-23-2023 11:30-0500 Systolic blood pressure 102 mm[Hg] [facility] 07-05-2023 18:00-0500 Body height 165.1 cm Kay Leta Other [facility] Other 07-05-2023 18:00-0500 Body mass index (BMI) [Ratio] 19.97 kg/m2 Kay Leta Other [facility] Other 07-05-2023 18:00-0500 Body temperature 99.1 [degF] Kay Leta Other [facility] Other 07-05-2023 18:00-0500 Body weight 54.43 kg Kay Woodwardmond Other [facility] Other 07-05-2023 18:00-0500 Respiratory rate 18 /min Kay Leta Other [facility] Other 07-05-2023 18:00-0500 SaO2% (BldA) [Mass fraction] 99 % Kay Woodwardmond Other [facility] Other 06-24-2023 09:45-0500 Body height 165.1 cm Adriana Stallworth Other [facility] Other 06-24-2023 09:45-0500 Body mass index (BMI) [Ratio] 20.13 kg/m2 Adriana Stallworth Other [facility] Other 06-24-2023 09:45-0500 Body temperature 97.7 [degF] Adriana Stallworth Other [facility] Other 06-24-2023 09:45-0500 Body weight 54.89 kg Adriana Stallworth Other [facility] Other 06-24-2023 09:45-0500 Respiratory rate 20 /min Adriana Stallworth Other [facility] Other 06-24-2023 09:45-0500 SaO2% (BldA) [Mass fraction] 98 % Adriana Stallworth Other [facility] Other 01-15-2023 11:40-0400 Body height 165.1 cm Kay Leta Other [facility] Other 01-15-2023 11:40-0400 Body mass index (BMI) [Ratio] 19.97 kg/m2 Kay Leta Other [facility] Other 01-15-2023 11:40-0400 Body temperature 97.3 [degF] Kay Leta Other [facility] Other 01-15-2023 11:40-0400 Body weight 54.43 kg Kay Leta Other [facility] Other 01-15-2023 11:40-0400 Diastolic blood pressure 68 mm[Hg] Kay Leta Other [facility] Other 01-15-2023 11:40-0400 Respiratory rate 18 /min Kay Leta Other [facility] Other 01-15-2023 11:40-0400 SaO2% (BldA) [Mass fraction] 98 % Kay Leta Other [facility] Other 01-15-2023 11:40-0400 Systolic blood pressure 108 mm[Hg] Kay Leta Other [facility] Other 09-10-2022 18:40-0500 Body height 165.1 cm Kay Leta Other [facility] Other 09-10-2022 18:40-0500 Body mass index (BMI) [Ratio] 19.97 kg/m2 Kay Leta Other [facility] Other 09-10-2022 18:40-0500 Body temperature 98.7 [degF] Kay Leta Other [facility] Other 09-10-2022 18:40-0500 Body weight 54.43 kg Kay Leta Other [facility] Other 09-10-2022 18:40-0500 Respiratory rate 18 /min Kay Leta Other [facility] Other 09-10-2022 18:40-0500 SaO2% (BldA) [Mass fraction] 99 % Kay Woodwardmond Other [facility] Other 06-14-2022 17:25-0500 Body height 165.1 cm Kay Woodwardmond Other [facility] Other 06-14-2022 17:25-0500 Body mass index (BMI) [Ratio] 19.13 kg/m2 Kay Woodwardmond Other [facility] Other 06-14-2022 17:25-0500 Body temperature 100.7 [degF] Kay Gillette Other [facility] Other 06-14-2022 17:25-0500 Body weight 52.16 kg Kay Gillette Other [facility] Other 06-14-2022 17:25-0500 Respiratory rate 18 /min Kay Gillette Other [facility] Other 06-14-2022 17:25-0500 SaO2% (BldA) [Mass fraction] 99 % Kay Woodwardmond Other [facility] Other 06-13-2021 15:30-0500 Body height 165.1 cm Adriana Ginty Other [facility] Other 06-13-2021 15:30-0500 Body mass index (BMI) [Ratio] 17.47 kg/m2 Adriana Ginty Other [facility] Other 06-13-2021 15:30-0500 Body temperature 97.9 [degF] Adriana Ginty Other [facility] Other 06-13-2021 15:30-0500 Body weight 47.63 kg Adriana Ginty Other [facility] Other 06-13-2021 15:30-0500 SaO2% (BldA) [Mass fraction] 98 % Adriana Ginty Other [facility] Other 04-26-2021 14:20-0400 Body height 165.1 cm Kay Gillette Other [facility] Other 04-26-2021 14:20-0400 Body mass index (BMI) [Ratio] 17.47 kg/m2 Kay Woodwardmond Other [facility] Other 04-26-2021 14:20-0400 Body temperature 98.7 [degF] Kay Woodwardmond Other [facility] Other 04-26-2021 14:20-0400 Body weight 47.63 kg Kay Gillette Other [facility] Other 04-26-2021 14:20-0400 SaO2% (BldA) [Mass fraction] 98 % Kay Woodwardmond Other [facility] Other Clinical Notes 04-26-2021 to 12-12-2023 Telephone [...] 12-12-2023 Telephone encount er Note Kandice Garcia, [employer] [place] left message on nurse line for provider today with medication question regarding recent prescription for Ubrelvy 50 mg. Tablets. You sent over a prescription for 16 tablets but the medication comes in a box of 10 and we do not split boxes. I was wondering if you could change the quantity to a value of 10. Spoke to Pharmacist at [facility] who was advised that 16 is the maximum monthly rail express clerk recommended dose. They have started prior authorization and will see what insurance companies authorizes. She stated it is a preference of their pharmacy to not split boxes but they will wait to see what insurance companies recommends. Will call back with any questions or concerns. [facility] 12-12-2023 Miscellaneous Notes Formattin g of this note might be different from the original. Kandice Garcia, [employer] [facility] [place] Pittman, CHRISTIAN left message on nurse line for provider today with medication question regarding recent prescription for Ubrelvy 50 mg. Tablets. You sent over a prescription for 16 tablets but the medication comes in a box of 10 and we do not split boxes. I was wondering if you could change the quantity to a value of 10. Spoke to Pharmacist at [facility] who was advised that 16 is the maximum monthly rail express clerk recommended dose. They have started prior authorization and will see what insurance companies authorizes. She stated it is a preference of their pharmacy to not split boxes but they will wait to see what insurance companies recommends. Will call back with any questions or concerns. documented in this encounter [facility] 12-09-2023 Note HNO ID: [id number] Author: HUSSEIN BROWNE MD Service: ? Author Type: Physician Type: Progress Notes Filed: 01/04/2024 23:19 Note Text: VIRTUAL VISIT PROGRESS NOTE This is a virtual visit using [employer] Video Visit. It required patient-provider interaction for the medical decision making as documented below. I have communicated my name and active licensure. The patient's identity and physical location were verified at the time of this visit. Either the patient or their legal representative phlebotomy services has been informed of the risks and benefits of -- and alternatives to -- treatment through a remote evaluation and consents to proceed with the evaluation remotely. Charly Foster is a 23 year old female seen for pain and fatigue . 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 No past surgical history on file. No family history on file. Social History Tobacco Use Smoking status: Never Smokeless tobacco: Never Vaping Use Vaping Use: current everyday user Substances: Nicotine Devices: Disposable Substance Use Topics Alcohol use: Yes Comment: rare Drug use: Never Current Outpatient Medications Medication Sig busPIRone (BUSPAR) 10 mg tablet Take 1 tablet by mouth every 12 hours. ondansetron orally disintegrating (ZOFRAN ODT) 4 mg disintegrating tablet DISSOLVE 1 (ONE) TABLET ON THE TONGUE EVERY 8 HOURS NEEDED FOR NAUSEA AND VOMITING No current facility-administered medications for this visit. ALLERGIES Allergen Reactions Codeine Hives, Other: See Comments confusion Other Reaction(s): Unknown confusion Atenolol Hives Cefuroxime Hives Ciprofloxacin GI Upset Other Reaction(s): Unknown Corticosteroids (Gl* Hives Metoclopramide Hives Other Reaction(s): Unknown Rizatriptan Hives Other Reaction(s): Unknown Sulfamethoxazole Hives Trimethoprim Hives Venlafaxine Hives Other Reaction(s): Unknown REVIEW OF SYSTEMS: GENERAL: feeling well without fatigue, no recent change in weight PHYSICAL EXAMINATION: VIDEO EXAM: (if completed, performed via video enabled technology) GENERAL: alert and appropriate, in no distress and well-hydrated, well nourished ASSESSMENT: (R53.1) Generalized weakness (R52) Generalized pain (R26.81) Gait instability (R10.84) Generalized abdominal pain PLAN: [facility] on 12/09/23 CREATINE KINASE/CK VITAMIN B12 CONSULT TO NEUROLOGY There are no Patient Instructions on file for this visit. I spent a total of 60 minutes on the date of the service which included preparing to see the patient, [id number] patient care, counseling and educating the patient/family/caregiver, and ordering medications, tests, or procedures Hussein Browne MD 12/07/2023 PROMIS Global Health Physical Health Summary Physical health: Poor Everyday physical activity, ability: A little Fatigue: Severe Pain level: 7 General health: Poor Social activities/roles, ability: Poor Physical Health T-Score 26.7 (Poor) Physical Health Percentile 1 PROMIS Global Health Mental Health Summary Quality of life: Poor Mental health (mood,thinking): Fair Social satisfaction: Poor Emotional problems (anxious,depressed): Always Mental Health T-Score 25.1 (Poor) Mental Health Percentile 1 PHQ-9 Score: 19(Moderately Severe Depression) JOSE J-7 Score: 15(Severe Anxiety) NEURO-QOL Cognitive Function T-Score 44(Mild Dysfunction) Neuro-Qol Cognitive Function Percentile 27 PROMIS Physical Function T-Score 34(Moderate Dysfunction) PROMIS Physical Function Percentile 5 PROMIS Pain Interference T-Score 72(Severe) PROMIS Pain Interference Percentile 1 Percentiles provide an indication of how a patient's score ranks in relation to the [place] general population. > 31st percentile is within normal limits or better *< 31st percentile is at least ? SD worse than population, which may be clinically relevant < 16th percentile is at least 1 SD worse than population and warrants attention 12/07/2023 Sleep Apnea Probability Snores loudly: No Tired, fatigued or sleepy in daytime: Yes Stops breathing or choking/gasping during sleep: Yes High blood pressure: No Sleep Apnea Probability Score: 3 (Sleep study not recommended) [facility] 12-09-2023 History of Presen t illness Narrative VIRTUAL VISIT PROGRESS NOTE This is a virtual visit using [employer] Video Visit. It required patient-provider interaction for the medical decision making as documented below. I have communicated my name and active licensure. The patient's identity and physical location were verified at the time of this visit. Either the patient or their legal representative phlebotomy services has been informed of the risks and benefits of -- and alternatives to -- treatment through a remote evaluation and consents to proceed with the evaluation remotely. Charly Foster is a 23 year old female seen for pain and fatigue . 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 No past surgical history on file. No family history on file. Social History Tobacco Use Smoking status: Never Smokeless tobacco: Never Vaping Use Vaping Use: current everyday user Substances: Nicotine Devices: Disposable Substance Use Topics Alcohol use: Yes Comment: rare Drug use: Never Current Outpatient Medications Medication Sig busPIRone (BUSPAR) 10 mg tablet Take 1 tablet by mouth every 12 hours. ondansetron orally disintegrating (ZOFRAN ODT) 4 mg disintegrating tablet DISSOLVE 1 (ONE) TABLET ON THE TONGUE EVERY 8 HOURS NEEDED FOR NAUSEA AND VOMITING No current facility-administered medications for this visit. ALLERGIES Allergen Reactions Codeine Hives, Other: See Comments confusion Other Reaction(s): Unknown confusion Atenolol Hives Cefuroxime Hives Ciprofloxacin GI Upset Other Reaction(s): Unknown Corticosteroids (Gl* Hives Metoclopramide Hives Other Reaction(s): Unknown Rizatriptan Hives Other Reaction(s): Unknown Sulfamethoxazole Hives Trimethoprim Hives Venlafaxine Hives Other Reaction(s): Unknown REVIEW OF SYSTEMS: GENERAL: feeling well without fatigue, no recent change in weight PHYSICAL EXAMINATION: VIDEO EXAM: (if completed, performed via video enabled technology) GENERAL: alert and appropriate, in no distress and well-hydrated, well nourished ASSESSMENT: (R53.1) Generalized weakness (R52) Generalized pain (R26.81) Gait instability (R10.84) Generalized abdominal pain PLAN: [facility] on 12/09/23 CREATINE KINASE/CK VITAMIN B12 CONSULT TO NEUROLOGY There are no Patient Instructions on file for this visit. I spent a total of 60 minutes on the date of the service which included preparing to see the patient, [id number] patient care, counseling and educating the patient/family/caregiver, and ordering medications, tests, or procedures Hussein Browne MD 12/07/2023 PROMIS Global Health Physical Health Summary Physical health: Poor Everyday physical activity, ability: A little Fatigue: Severe Pain level: 7 General health: Poor Social activities/roles, ability: Poor Physical Health T-Score 26.7 (Poor) Physical Health Percentile 1 PROMIS Global Health Mental Health Summary Quality of life: Poor Mental health (mood,thinking): Fair Social satisfaction: Poor Emotional problems (anxious,depressed): Always Mental Health T-Score 25.1 (Poor) Mental Health Percentile 1 PHQ-9 Score: 19(Moderately Severe Depression) JOSE J-7 Score: 15(Severe Anxiety) NEURO-QOL Cognitive Function T-Score 44(Mild Dysfunction) Neuro-Qol Cognitive Function Percentile 27 PROMIS Physical Function T-Score 34(Moderate Dysfunction) PROMIS Physical Function Percentile 5 PROMIS Pain Interference T-Score 72(Severe) PROMIS Pain Interference Percentile 1 Percentiles provide an indication of how a patient's score ranks in relation to the [place] general population. > 31st percentile is within normal limits or better *< 31st percentile is at least SD worse than population, which may be clinically relevant < 16th percentile is at least 1 SD worse than population and warrants attention 12/07/2023 Sleep Apnea Probability Snores loudly: No Tired, fatigued or sleepy in daytime: Yes Stops breathing or choking/gasping during sleep: Yes High blood pressure: No Sleep Apnea Probability Score: 3 (Sleep study not recommended) documented in this encounter [facility] 11-23-2023 History of Presen t illness [...] PATIENT PRESENTS WITH AN IMPLANTABLE OR ATTACHED RELAY DISPATCHER: No RADIOLOGY DEPARTMENT: MR; Exam(s) Completed: Head: Pituitary PERIPHERAL IV DATA: Site assessment: Clean,Dry and Intact, Site disposition Discontinued SIGNED BY: RT Anu(Nahun) November 23, 2023 12:56 PM documented in this encounter [facility] 11-23-2023 Note HNO ID: [id number] Author: EVELYN ZAMORA RN Service: Nursing Author [...] DATE: November 23, 2023 TIME: 12:41 PM [facility] 11-23-2023 Note HNO ID: [id number] Author: MOHAN THOMAS RT(Nahun) Service: Radiology Author [...] PATIENT PRESENTS WITH AN IMPLANTABLE OR ATTACHED RELAY DISPATCHER: No RADIOLOGY DEPARTMENT: MR; Exam(s) Completed: Head: Pituitary PERIPHERAL IV DATA: Site assessment: Clean,Dry and Intact, Site disposition Discontinued SIGNED BY: RT Anu(R) November 23, 2023 12:56 PM [facility] 11-21-2023 Telephone encount er Note Updated clinical notes from [facility] Date collected 10/19/23 Date scanned in chart 11/21/23 Key Meneses Manager Science II [facility] F-20 [facility] 11-21-2023 Miscellaneous Notes Formattin g of this note might be different from the original. Updated clinical notes from [facility] Date collected 10/19/23 Date scanned in chart 11/21/23 Key Meneses Manager [employer] II [facility] F-20 documented in this encounter [facility] 11-18-2023 Instructions Monserrat North MD - [...] Yes Does patient want to see a Ordnance Equipment Worker? No (yes to any of above refer patient to schedulers for dietitian appointment) ) Does patient have any new or increased numbness or tingling of extremities? Yes, numbness in both hands. Is patient interested in fertility information? No Does patient need any prescription refills? No Does patient have an advanced directive in place? No, Patient referred to [facility] 11-18-2023 History of Presen t [...] which included preparing to see the patient, [id number] patient care, completing clinical documentation, obtaining and/or [...] encounter [facility] 11-18-2023 Note HNO ID: [id number] Author: MONSERRAT NORTH MD Service: ? Author [...] - 10/27/2023 ASSESSMENT/P (more content not included)... [facility] 11-18-2023 Nurse Note Additional intake questions: Has the patient had fever, nausea, vomiting, diarrhea, constipation, fatigue for > 1 week? Yes, nausea, fatigue, and Provider Notified Does the patient have a decreased appetite? Yes Does patient want to see a Ordnance Equipment Worker? No (yes to any of above refer patient to schedulers for dietitian appointment) ) Does patient have any new or increased numbness or tingling of extremities? Yes, numbness in both hands. Is patient interested in fertility information? No Does patient need any prescription refills? No Does patient have an advanced directive in place? No, [facility] referred to [facility] documented in this encounter [facility] 11-16-2023 Telephone encount er Note Call placed to Charly Foster. Discussed appointment on Tuesday with Dr. North. She tells me she was referred due to abnormal MRI findings. MRI is available for review in [facility]. She has not had pituitary lab [...] answered at this time. Gil Reyes RN [employer] November 16, 2023 [facility] 11-16-2023 Miscellaneous Notes Formattin g of this note might be different from the original. Call placed to Charly Foster. Discussed appointment on Tuesday with Dr. North. She tells me she was referred due to abnormal MRI findings. MRI is available for review in [facility]. She has not had pituitary lab [...] answered at this time. Gil Reyes RN [employer] November 16, 2023 documented in this encounter [...] Suspected COVID-19 virus infection (ICD-10 - Z20.822) [facility] Other 12-01-2023 Evaluation note* Encounter Date Diagnosis [...] aware. Advised follow above treatment plan recommendations [facility] Other 10-19-2023 Evaluation note* Encounter Date Diagnosis Assessment Notes Treatment Notes Treatment Clinical Notes Apr, Acute non-recurrent maxillary sinusitis (ICD-10 - J01.00) Take medication as prescribed. Humidification, saline nose spray, Neti pot suggested for sinus relief. OTC acetaminophen/ibup rofen for pain. May continue OTC decongestants/anti histamines. [facility] Other 06-24-2023 Evaluation note* Encounter Date Diagnosis [...] no improvement in 2 to 3 days. [facility] Other 02-23-2023 Evaluation note* Encounter Date Diagnosis [...] even if you start to feel better. [facility] Other 02-17-2023 Evaluation note* Encounter Date Diagnosis [...] of diseases classified elsewhere (ICD-10 - B96.89) [facility] Other 11-21-2022 Evaluation note* Encounter Date Diagnosis [...] of diseases classified elsewhere (ICD-10 - B96.89) [facility] Other 06-14-2022 NotePROCEDURE: XR ANKLE LT MIN [...] Electronically authenticated by: GREGORY KLEIN Date: 2022-01-05 16:37[facility]06-14-2022 NotePROCEDURE: XR ANKLE LT MIN 3 [...] Electronically authenticated by: GREGORY KLEIN Date: 2022-01-05 16:37[facility]11-20-2021 Evaluation note* Encounter Date Diagnosis Assessment [...] Patient care instructions given in writting by [employer] document [facility] Other 10-03-2021 Evaluation note* Encounter Date Diagnosis [...] Patient care instructions given in writting by [employer] document. [facility] Other Evaluation noteNo assessment information available [facility] Work Phone: Evaluation noteNo InformationNort [employer] Other Evaluation note* Diagnosis Onset Date Resolution Status Fatigue acute Mitral valve disorder acute Nausea & vomiting acute [facility] Work Phone: Evaluation note* Diagnosis Onset Date Resolution Status Chronic constipation acute Fatigue acute Migraine acute Mitral valve disorder acute Nausea & vomiting acute Staring episodes acute Constipation acute Nausea acute Dyspepsia noneactive Celiac disease noneactive [facility] Work Phone: Evaluation note* Diagnosis 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 documented in this encounter [facility] note* Diagnosis Abnormal brain MRI Nonspecific (abnormal) findings on radiological and other examination of skull and head Pituitary adenoma (HCC) Benign neoplasm of pituitary gland and craniopharyngeal duct (pouch) Elevated prolactin level Unspecified endocrine disorder Pituitary disorder (HCC) Unspecified disorder of the pituitary gland and its hypothalamic control [facility] Diagnosis Abnormal brain MRI- Primary Nonspecific [...] its hypothalamic control [facility] Diagnosis Generalized weakness- Primary Other malaise and fatigue Generalized pain Gait instability Abnormality of gait Generalized abdominal pain Abdominal pain, generalized Intractable migraine with aura without status migrainosus Migraine with aura, with intractable migraine, so stated, without mention of status migrainosus documented in this encounter [facility] note* Diagnosis Onset Date Resolution Status Chronic constipation acute Fatigue acute Migraine acute Mitral valve disorder acute Nausea & vomiting acute Staring episodes acute Dyspepsia noneactive Celiac disease noneactive Chronic constipation acute Migraine acute Mitral valve disorder acute Staring episodes acute Mitral valve disorder acute Palpitations acute [facility] Work Phone: History general Narrative - Reported* Type Description Date Medical History concaved chest Medical History acne Medical History Mitral valve prolapse Medical History anxiety Medical History chronic depression Medical History migraine headache Medical History auto immune disorder unsure of n [place] Surgical History laparoscopy Hospitalization History see above [facility] Other history general Narrative - Reported* Type Description Date Medical History concaved chest Medical History acne Medical History Mitral valve prolapse Medical History anxiety Medical History chronic depression Medical History migraine headache Medical History urticaria Surgical History laparoscopy Hospitalization History see above [facility] Other history general Narrative - Reported* Type Description Date Medical History concaved chest Medical History acne Medical History Mitral valve prolapse Medical History anxiety Medical History chronic depression Medical History migraine headache Medical History urticaria Surgical History laparoscopy Surgical History repair ankle tendon Hospitalization History see above [facility] Other history general Narrative - Reported* Type Description Date Medical History concaved chest Medical History acne Medical History Mitral valve prolapse Medical History anxiety Medical History chronic depression Medical History migraine headache Medical History urticaria Medical History PCOS Surgical History laparoscopy Surgical History repair ankle tendon Hospitalization History see above [facility] Other Summary Purpose Family History No Family History Records Found Relationship Condition Age at Onset Recorded Date/T madeline father Crohn's disease Unknown Relationship Condition Age at Onset Recorded Date/T madeline father Crohn's disease Unknown Not Specified Gastroesophageal reflux disease Unknown Anxiety Unknown Advance Directives No Advanced Directives Records Found Advance Directive Response Recorded Date/ Time Advance Directives No March 3:14pm Advance Directive Response Recorded Date/ Time Advance Directives No March 2:14pm Advance Directive Response Recorded Date/ Time Advance Directives No December 01 4 10:19am Chief Complaint and Reason for Visit [...] BROTHERS CONSTIPATION, NAUSEA & VOMITING r27.0 r11.0 [facility] f/u, pain Reason for Visit Chronic constipation Fatigue Migraine Mitral valve disorder Nausea & vomiting Staring episodes Constipation Nausea Dyspepsia Celiac disease Chief Complaint Check up REF BY DR. BROTHERS CONSTIPATION, NAUSEA & VOMITING r27.0 r11.0 [facility] f/u, pain Rheumatic Mitral Valve Disease Reason for Visit Chronic constipation Fatigue Migraine Mitral valve disorder Nausea & vomiting Staring episodes Dyspepsia Celiac disease Chronic constipation Migraine Mitral valve disorder Staring episodes Mitral valve disorder Palpitations Reason for Referral Specialty Diagnoses / Procedures Referred By Contac t Referred To Contact Hussein Browne MD [address] [place] [address] Referral ID Status Reason Start Date Expiration Date Visits Re quested Visits Authorized [id number] Closed 1 1 Specialty Diagnoses / Procedures Referred By Contac t Referred To Contact Neurology Diagnoses Generalized weakness Generalized pain Gait instability Generalized abdominal pain Procedures CONSULT TO NEUROLOGY OFFICE/OUTPATIENT [facility] 60 MINUTES Monserrat North MD [address] [id number] Referral ID Status Reason Start Date Expiration Date V isits Requested Visits Authorized [id number] Closed PCP Requested Referral 11/18/2023 11/17/2024 1 1 Specialty Diagnoses / Procedures Referred By Contac t Referred To Contact INTERNAL MEDICINE Diagnoses Generalized weakness Generalized pain Gait instability Generalized abdominal pain Procedures ESTABLISH WITH PRIMARY CARE NEW PATIENT OFFICE/OUTPATIENT [facility] 60 MINUTES Monserrat North MD [address] [place] [address] [place] [address] Referral ID Status Reason Start Date Expiration Date Visits Requested Visits Authorized [id number] Authorized PCP Requested Referral 11/18/2023 11/17/2024 1 1 Specialty Diagnoses / Procedures Referred By Contac t Referred To Contact MR IMAGING Diagnoses Abnormal brain MRI Pituitary adenoma (HCC) Elevated prolactin level Pituitary disorder (HCC) Procedures MRI PITUITARY WO/W IVCON MRI BRAIN BRAIN STEM W/O W/CONTRAST MATERIAL Monserrat North MD [address] [place] [address] [facility] [place] [id number] Referral ID Status Reason Start Date Expiration Date V isits Requested Visits Authorized [id number] Closed Auto-Generate d Referral 11/18/2023 12/17/2024 1 1 Specialty Diagnoses / Procedures Referred By Macieac yvette Referred To Contact MR IMAGING Diagnoses Abnormal brain MRI Pituitary adenoma (HCC) Elevated prolactin level Pituitary disorder (HCC) Procedures MRI PITUITARY WO/W IVCON MRI BRAIN BRAIN STEM W/O W/CONTRAST MATERIAL Monserrat North MD [address] [place] [address] [facility] [place] [id number] Referral ID Status Reason Start Date Expiration Date V isits Requested Visits Authorized [id number] Closed Auto-Generate d Referral 11/18/2023 12/17/2024 1 [...] section and content) DATE CREATED AUTHOR 08/21/2021 [facility] DATE CREATED AUTHOR AUTHOR'S ORGANIZ ATION 12/06/2022 [facility] DATE CREATED AUTHOR AUTHOR'S ORGANIZ ATION 01/06/2024 [facility] DATE CREATED AUTHOR AUTHOR'S ORGANIZ ATION 01/07/2024 [facility] REASON FOR VISIT (unrecogniz ed section and content) Reason Comments Piece Presser - Other Reason Comments Received Outside Medical Records Reason Comments Radiology MRI Specialty Diagnoses / Procedures Referred By Connie crawford Referred To Contact MR IMAGING Diagnoses Abnormal brain MRI Pituitary adenoma (HCC) Elevated prolactin level Pituitary disorder (HCC) Procedures MRI PITUITARY WO/W IVCON MRI BRAIN BRAIN STEM W/O W/CONTRAST MATERIAL Monserrat North MD [address] [place] [address] [place] [address] Referral ID Status Reason Start Date Expiration Date V isits Requested Visits Authorized [id number] Closed Auto-Generate d Referral 11/18/2023 12/17/2024 1 1 Reason Comments Medication Question Reason Comments Patient Question Insurance informatio n for medication Reason Comments New Patient Reason Comments New Patient Evaluation Specialty Diagnoses / Procedures Referred By Connie t Referred To Contact Neurology Diagnoses Generalized weakness Generalized pain Gait instability Generalized abdominal pain Procedures CONSULT TO NEUROLOGY OFFICE/OUTPATIENT [facility] 60 MINUTES Monserrat North MD [address] [place] [address] Referral ID Status Reason Start Date Expiration Date V isits Requested Visits Authorized [id number] Closed PCP Requested Referral 11/18/2023 11/17/2024 1 1 Care Teams (unrecognized sec tion [...] Team Status: Inactive Member Role Status Carlitos Brothres MD Primary Care Provider Active Start: November 07, 2023 End: November 07, 2023 Reji Bailey APRN Attending Provider Active Start: November 07, 2023 End: November 07, 2023 Team Status: Inactive Member Role Status Carlitos Brothers MD Primary Care Provide r, Attending Provider Active Start: December 05, 2023 End: December 05, 2023 Team Status: Inactive Member Role Status Dates Monster Brothers MD Primary Care Provider Active Start: January 06, 2024 End: January 06, 2024 Kya Hoskins MD Attending Provider Active Sta rt: January 06, 2024 End: January 06, 2024 Team Status: Active Member Role Status Dates Monster Brothers MD Primary Care Provider Active Start: January 06, 2024 Kya Hoskins MD Attending Provider Active Sta rt: January 06, 2024 Team Status: Active Member Role Status Dates Kya Hoskins MD [employer] Machine Operator Active [employer] Brothers MD Primary Care Provider Active Goals (unrecognized section and content) [...] BE BASED ON THE PRIMARY CLINICAL RECORDS. [employer] provides no warranty or guarantee of the accuracy or completeness of information in this document.
[2024-01-10 17:38] LABS: HCG Quantitative <1 mIU/mL
== END 2024-01-22 23:59 | disposition home or self-care (01) ==
LOC: LAB 16:39
PROVIDERS: PCP Family Medicine; Visit Provider Obstetrics & Gynecology
DX: N92.6 Irregular menstruation, unspecified (principal)
CPT/HCPCS: 36415; 84702

== ENCOUNTER 2024-04-14 12:21 | Emergency (ER) | payer BC, SELFPAY ==
[2024-04-14 12:34] VITALS: BP 117/80; PULSE 97; TEMP 37.1; O2SAT 99; BMI 18.0
--- OUTSIDE RECORDS SUMMARY | 2024-04-14 12:37 | XMS_ITS | CCD ---
Author Organization [facility] Care Team Providers Care Pitch Filler Name Role Phone Pcp, No Primary Care [...] Provider MD [employer] Primary Care Provider [phone] DO Bentley Byrne Attending Provider LALO Bailey Attending Provider Unavailable Primary Care Provider UnavailMD Kya Rose Attending Provider [phone] MD [employer] Primary Care Provider [phone] Pia Laureano Unavailable HUSSEIN BROWNE Attending Unavailable YOGI-MORREN, MONSERRAT Referring Unavailable YOGI-MORREN, MONSERRAT Referring Unavailable YOGI-MORREN, MONSERRAT Attending Unavailable YOGIgnacio-SAMMIE, MONSERRAT Referring Unavailable Adriana Stallworth Admitting Unavailable Adriana Stallworth Attending Unavailable NO FAMILY, PHYSICIAN Primary Care Unavailable [employer] Primary Care Unavailable Reji Bailey Admitting Unavailable Reji Bailey Attending Unavailable Kya Hoskins Admitting Unavailable Kya Hoskins Attending Unavailable [employer] Primary Care Unavailable Aidee, Kya Admitting Unavailable Aidee, Kya Attending Unavailable [employer] Primary Care Unavailable [employer] Primary Care Unavailable Bentley Byrne Admitting Unavailab Bentley Boland Attending Unavailab MD [facility] [employer] Primary Care Provider MD Kya Hoskins Attending Provider [phone] BLACKSTON, MOHAN T Attending Unavailable NABIL, BERNARDINO L Referring Unavailable KELBLEY, PRANAY Attending Unavailable NABIL, BERNARDINO L Referring Unavailable BRINK, KEEGAN Attending Unavailable NABIL, BERNARDINO L Referring Unavailable BRINK, KEEGAN Attending Unavailable NABIL, BERNARDINO L Referring Unavailable KELBLEY, PRANAY Attending Unavailable NABIL, BERNARDINO L Referring Unavailable KELBLEY, PRANAY Attending Unavailable NABIL, BERNARDINO L Referring Unavailable BLACKSTON, MOHAN T Attending Unavailable HALADAY, PIA G Referring Unavailable BLACKSTON, MOHAN T Attending Unavailable HALADAY, PIA G Referring Unavailable KELBLEY, PRANAY Attending Unavailable HALADAY, PIA G Referring Unavailable KELBLEY, PRANAY Attending Unavailable HALADAY, PIA G Referring Unavailable BLACKSTON, MOHAN T Attending Unavailable HALADAY, PIA G Referring Unavailable KELBLEY, PRANAY Attending Unavailable HALADAY, PIA G Referring Unavailable KELBLEY, PRANAY Attending Unavailable HALADAY, PIA G Referring Unavailable KELBLEY, PRANAY Attending Unavailable HALADAY, PIA G Referring Unavailable KELBLEY, PRANAY Attending Unavailable HALADAY, PIA G Referring Unavailable Allergies Allergy Classification Reported Allergen(s) Allergy Type Date of Onset Reaction(s) Facility (20 sources) Ciprofloxacin; Translations: [CIPROFLOXACIN] Drug Allergy 02-16-20 23 GI Upset [facility] (20 sources) Codeine; Translations: [CODEINE] Drug Allergy 09-19-19 15 Hives, Other: See [facility] (13 sources) venlafaxine; Translations: [Effexor] Drug Allergy 09-17-19 20 swelling/shaki ng [facility] (14 sources) Atenolol; Translations: [ATENOLOL] Drug Allergy 10-10-19 [facility] (13 sources) Cefuroxime; Translations: [CEFUROXIME] Drug Allergy 10-10-19 Hives [facility] Repository (2 sources) Ciprofloxacin Drug Allergy very nauseous [facility] Rep[facility] (1 source) Codeine Drug Allergy 04-21-20 13 [facility] (4 sources) Iothalamate Drug Allergy 09-17-19 Unknown [facility] (2 sources) Perazine Drug Allergy Unknown [facility] (4 sources) predniSONE Drug Allergy 01-24-20 19 Unknown [facility] (4 sources) Sulfamethoxazole / Trimethoprim Drug Allergy Unknown [facility] (9 sources) Atenolol Drug Allergy 10-21-19 [facility] (12 sources) Cefuroxime Drug Allergy 09-24-19 [facility] [employer] Other (3 sources) Codeine Drug Allergy Unknown [facility] [employer] Other (20 sources) rizatriptan; Translations: [RIZATRIPTAN] Drug Allergy 02-16-20 [facility] (20 sources) venlafaxine; Translations: [VENLAFAXINE] Drug Allergy 02-16-20 23 [facility] (3 sources) corticosteroid and/or corticosteroid derivative (FN) Drug allergy Unknown [employer] [facility] [employer] Other (1 source) Cefuroxime Drug Allergy Unknown [employer] [facility] [employer] Other (1 source) Codeine Drug Allergy sensitive over dose as a child [employer] [facility] [employer] Other (1 source) venlafaxine Drug Allergy Unknown [facility] [employer] Other (14 sources) Corticosteroids; Translations: [CORTICOSTEROIDS (GLUCOCORTICOIDS)] Allergy to substance 10-10-19 24 [facility] (20 sources) Metoclopramide; Translations: [METOCLOPRAMIDE] Drug Allergy 02-16-20 23 [facility] (20 sources) Sulfamethoxazole; Translations: [SULFAMETHOXAZOLE] Drug Allergy 10-10-19 [facility] (17 sources) Trimethoprim; Translations: [TRIMETHOPRIM] Drug Allergy 10-10-19 [facility] (1 source) Atenolol Drug Allergy 02-15-20 [facility] Repository (1 source) Cefuroxime Drug Allergy 02-15-20 [facility] Repository (1 source) Ciprofloxacin Drug Allergy 02-15-20 [facility] Repository (1 source) Codeine Drug Allergy 02-15-20 [facility] Repository (1 source) rizatriptan Drug Allergy 02-15-20 [facility] Repository (1 source) venlafaxine Drug Allergy 02-15-20 [facility] Repository Medications Current Medications Medication Drug Class(es) Dates Sig (Normalized) Sig (Original) [id number] 200 actuat albuterol 0.09 mg/actuat metered dose inhaler (18 sources) beta2-Adrenergic Agonist Start: 10-07-2023 End: 01-06-2024 [...] daily x 4 more days for 5 23 Feb, 2023 Active benzonatate 200 mg oral capsule (3 [...] 10 mg oral tablet (20 sources) Start: 03-22-2024 take 1 tablet by mouth twice daily Buspirone Active 0 .ROUTE .COMPLEX 60 March 22, 2024 8:14am TAKE 1 TABLET BY MOUTH TWICE DAILY Start: 12-22-2023 End: 03-22-2024 take 1 tablet by mouth twice daily Buspirone Discontinued 0 .ROUTE .COMPLEX 60 December 22, 2023 8:40am March 22, 2024 8:14am TAKE 1 TABLET BY MOUTH TWICE DAILY Start: 12-22-2023 take 1 tablet by zachary twice daily Buspirone Active 0 .ROUTE .COMPLEX [...] daily until your symptoms improve Apr, Active lubiprostone (2 sources) Chloride Channel Activator Start: 02-17-2024 take 1 capsule by mouth twice daily Lubiprostone (Amitiza) 8 mcg capsule Active 8 MCG PO Twice daily 60 February 17, 2024 12:00am Medrol Dose Pack as directed (2 sources) Start: 04-26-2021 Medrol Dose Pack as directed as directed orally as directed [...] Active ondansetron 4 mg disintegrating oral tablet (20 sources) Serotonin-3 Receptor Antagonist Start: 10-14-2023 End: 10-21-2023 take 4 mg by mouth every eight hours Ondansetron Active 4 MG PO Every 8 hours October 21, 2023 9:47am propranolol hydrochloride 10 mg oral tablet (8 sources) beta-Adrenergic Cindi Start: 01-06-2024 End: 03-16-2024 take 10 mg by mouth twice daily Propranolol Active 10 MG PO Twice daily 60 March 16, 2024 9:59am ubrogepant 50 mg oral tablet (4 sources) Start: 12-09-2023 ubrogepant (UBRELVY) 50 mg [...] Not-Taking/PRN Start: 09-10-2022 take 1 capsule by [facility] every eight hours Amoxicillin 500 MG 1 capsule Orally three times a day for 10 day(s) Aug, Not-Taking Start: 06-14-2022 take 1 capsule by [facility] every eight hours Amoxicillin 500 MG 1 capsule Orally three times a day for 10 day(s) May, Active cyproheptadine hydrochloride 4 mg oral tablet (18 sources) Start: 10-07-2023 End: 10-10-2023 take 4 [...] Orally bid for 5 day(s) Dec, Not-Taking/PRN pantoprazole 40 mg delayed release oral tablet (13 sources) Proton Pump Inhibitor Start: 02-15-2024 End: 04-12-2024 take 1 tablet by mouth twice daily Pantoprazole (Protonix) 40 mg tablet,delayed release (DR/EC) Discontinued 40 MG PO Twice daily February 15, 2024 12:00am April 12, 2024 11:39am Start: 10-21-2023 End: 02-15-2024 take 1 tablet by mouth once daily Pantoprazole (Protonix) 40 mg tablet,delayed release (DR/EC) Discontinued 40 MG PO Daily October 21, 2023 12:00am February 15, 2024 1:43pm phenazopyridine hydrochloride 200 mg oral tablet (18 sources) Start: 10-07-2023 End: 10-10-2023 take 1 [...] a day for 2 day(s) Dec, Not-Taking/PRN Plecanatide (Trulance) 3 mg tablet (3 sources) Start: 02-15-2024 End: 04-12-2024 take 1 tablet by mouth once daily Plecanatide (Trulance) 3 mg tablet Discontinued 3 MG PO Daily February 15, 2024 12:00am April 12, 2024 11:39am Start: 02-15-2024 take 1 tablet by zachary th once daily Plecanatide (Trulance) 3 mg tablet Active 3 MG PO Daily February 15, 2024 12:00am predniSONE 20 mg oral tablet (9 sources) Start: 09-10-2022 take 1 tablet by mouth every twelve hours predniSONE 20 MG 1 tablet Orally 2 times a day for 5 day(s) Aug, Not-Taking/PRN topiramate (10 sources) Topamax Not-Taki ng/PRN Topamax Not-Taki ng Topamax Active Problems Active Problems Problem Classification Problem Date Documented Da te Episodic/Chronic Abdominal pain (10 sources) Epigastric pain; Translations: [Dyspepsia and other specified disorders of function of stomach] Onset: 4 10-21-2023 Episodic Bacterial infection; unspecified site (2 sources) Other specified bacterial agents as the cause of diseases classified elsewhere Episodic Cardiac dysrhythmias (13 sources) Palpitations; Translations: [Palpitations] Onset: 4 01-06-2024 Episodic Chronic obstructive pulmonary disease and bronchiectasis (1 source) Bronchitis, not specified as acute or chronic Episodic Conditions associated with dizziness or vertigo (12 sources) Dizziness; Translations: [Dizziness] Episodic E Codes: Natural/environment (1 source) Overexertion from prolonged static or awkward postures, initial encounter; Translations: [OVEREXERT PROLNG STAT/AWK PST INIT] Onset: 3 Episodic Esophageal disorders (5 sources) Gastroesophageal reflux disease; Translations: [Gastro-esophageal reflux disease without esophagitis] 02-15-2024 Chronic Genitourinary symptoms and ill-defined conditions (9 sources) Dysuria; Translations: [Dysuria] Episodic Headache; including migraine (20 sources) Migraine; Translations: [Migraine, unspecified, not intractable, without status migrainosus] Onset: 4 10-10-2023 Chronic Heart valve disorders (20 sources) Mitral valve disorder; Translations: [Rheumatic mitral valve disease, unspecified] Onset: 4 10-10-2023 Chronic Immunizations and screening for infectious disease (14 sources) Contact with and (suspected) exposure to other viral communicable diseases; Translations: [Contact with and (suspected) exposure to other viral communicable diseases Z20.828] Onset: 1 Resolved: 1 Episodic Malaise and fatigue (20 sources) Fatigue; Translations: [Other fatigue] Onset: 4 10-10-2023 Episodic Menstrual disorders (3 sources) Missed period; Translations: [Irregular menstruation, unspecified] Chronic Nausea and vomiting (20 sources) Nausea and vomiting; Translations: [Nausea with vomiting, unspecified] Onset: 10-10-2023 Episodic Other and unspecified benign neoplasm (2 sources) Pituitary adenoma; Translations: [Benign neoplasm of pituitary gland] 11-23-2023 Episodic Other connective tissue disease (4 sources) Muscle pain; Translations: [Myalgia, unspecified site] 01-10-2024 Episodic Other connective tissue disease (3 sources) Fibromyalgia; Translations: [Fibromyalgia] 02-15-2024 Episodic Other connective tissue disease (1 source) Fibromyalgia; Translations: [Myalgia and myositis, unspecified] 04-12-2024 Episodic Other connective tissue disease (1 source) Myalgia, unspecified site; Translations: [Myalgia and myositis, unspecified] 04-12-2024 Episodic Other endocrine disorders (1 source) Hypophysitis; Translations: [Other disorders of pituitary gland] 11-16-2023 Chronic Other endocrine disorders (2 sources) Disorder of pituitary gland; Translations: [Disorder of pituitary gland, unspecified] 11-23-2023 Chronic Other gastrointestinal disorders (7 sources) Celiac disease; Translations: [Celiac disease] 10-21-2023 Chronic Other gastrointestinal disorders (2 sources) Irritable bowel syndrome characterized by constipation; Translations: [Irritable bowel syndrome with constipation] 02-15-2024 Chronic Other gastrointestinal disorders (3 sources) Irritable bowel syndrome with constipation; Translations: [Irritable bowel syndrome] 02-15-2024 Chronic Other gastrointestinal disorders (10 sources) Chronic constipation; Translations: [Other constipation] 10-10-2023 Episodic Other gastrointestinal disorders (4 sources) Constipation; Translations: [Constipation, unspecified] 10-21-2023 Episodic Other gastrointestinal disorders (10 sources) Other constipation; Translations: [Constipation, unspecified] 10-10-2023 Episodic Other gastrointestinal disorders (4 sources) Constipation, unspecified; Translations: [Constipation, unspecified] 10-21-2023 Episodic Other injuries and conditions due to external causes (1 source) Injury, unspecified, initial encounter Episodic Other nervous system disorders (2 sources) Abnormal gait; Translations: [Unsteadiness on feet] 11-18-2023 Episodic Other nervous system disorders (1 source) Unsteadiness on feet; Translations: [Gait instability] Onset: 4 Episodic Other non-traumatic joint disorders (3 sources) Pain in left ankle and joints of left foot; Translations: [PAIN IN LEFT ANKLE] Onset: 3 Episodic Other screening for suspected conditions (not mental disorders or infectious disease) (7 sources) Magnetic resonance imaging of brain abnormal; Translations: [Other abnormal findings on diagnostic imaging of central nervous system] Onset: 4 11-23-2023 Episodic Other upper respiratory disease (12 sources) Allergic rhinitis; Translations: [Allergic rhinitis, unspecified] Chronic Other upper respiratory infections (20 sources) Acute sinusitis; Translations: [Sinusitis acute] Onset: 1 Resolved: 1 Episodic Residual codes; unclassified (10 sources) Staring; Translations: [Transient alteration of awareness] 10-10-2023 Episodic Residual codes; unclassified (10 sources) Transient alteration of awareness; Translations: [Transient alteration of awareness] 10-10-2023 Episodic Residual codes; unclassified (2 sources) Generalized aches and pains; Translations: [Pain, unspecified] 11-18-2023 Episodic Residual codes; unclassified (1 source) Pain, unspecified; Translations: [Generalized pain] Onset: 4 Episodic Sprains and strains (1 source) Sprain of unspecified ligament of left ankle, initial encounter; Translations: [SPRAIN UNS LIGAMENT LT ANKLE INIT] Onset: 3 Episodic Superficial injury; contusion (1 source) Contusion of right hand, initial encounter Episodic Unclassified (1 source) Injury, unspecified, initial encounter; Translations: [Injury, unspecified, initial encounter] Onset: 3 Urinary tract infections (2 sources) Urinary tract infection, site not specified Episodic Past or Other Problems Problem Classification Problem Date Documented Da te Episodic/Chronic Other circulatory disease (3 sources) Orthostatic hypotension; Translations: [Orthostatic hypotension] Onset: 07-19-2013 Episodic Other connective tissue disease (4 sources) Pain in left foot; Translations: [PAIN IN LEFT FOOT] Onset: 01-05-2022 Episodic Other nervous system disorders (1 source) Ataxia, unspecified; Translations: [Ataxia, unspecified] Onset: 10-27-2023 Episodic Other non-traumatic joint disorders (1 source) Other specified joint disorders, left ankle and foot; Translations: [OTHER SPEC JOINT D/O LT ANKLE FOOT] Onset: 01-07-2022 Episodic Unclassified (1 source) Suspected COVID-19 virus infection Z20.822 Results Test Name Value Interpretation Reference Range Facility [facility] echo transthoracicon [facility] echo transthoracic [facility] [place] [address] [place] [address] Echocardiogram Signed Patient: Charly Foster MR#: [id number] : 2000 Acct:[id number] Age/Sex: 23 / F ADM Date: 04/03/24 Loc: Room: Type: [facility] Attending Dr: Kya Hoskins MD Ordering Provider: Kya Hoskins MD Date of Service: 04/03/2405/17/841 [facility] echo transthoracic: R00.2 - Palpitations Copies to: MD Danuta Childs [facility] BSA: 1.5 m2 BP: 100/78 mmHg HR: 64 Reason For Study: Palpitations History: MVP. Fibromyalgia. Smoker-Vapes. Interpretation Summary 23 y/o F w/ palpitations Normal LV systolic function very small pocket of pericardial fluid vs. pericardial fat; clinical correlation advised Procedure/Quality: A two-dimensional transthoracic echocardiogram with color flow and Doppler was performed. Left Ventricle: The left ventricular size and thickness are normal. Left ventricular systolic function is normal. A variety of Doppler measurements indicate normal left ventricular diastolic function. Left Atrium: The left atrium appears normal in size. Right Atrium: The right atrium appears normal in size. Right Ventricle: Low normal RV function. Aortic Valve: The aortic valve is normal in structure. No hemodynamically significant valvular aortic stenosis. Mitral Valve: The mitral valve leaflets appear normal. There is no evidence of stenosis, fluttering, or prolapse. There is no mitral valve stenosis. There is trace mitral regurgitation. Tricuspid Valve: The tricuspid valve is normal in structure and function. There is trace tricuspid regurgitation. Pulmonic Valve: The pulmonic valve is not well visualized. Arteries: The aortic root is normal size. normal sized proximal ascending aorta. Pericardium/Pleura: small pocket of fluid vs. pericardial fat. IVC/Hepatic Veins: normal IVC size. Measurements with Normals IVSd: 0.61 cm (0.7-1.1 cm)LVIDd: 3.5 cm (3.7-5.4 cm) LVPWd: 0.64 cm (0.7-1.1 cm)LVIDs: 2.5 cm (2.3-3.6 cm) LA dimension: 2.2 cm (2.3-4.0 cm)Ao root diam: 2.4 cm(2.0-3.6 cm) asc Aorta Diam: 2.3 cm(2.1-3.4cm) Doppler with Normals RVSP(TR): 19.3 mmHg (18-35mmHg) LV V1 max: 84.4 cm/sec (0.7-1.7m/s)MV E max dionisio: 76.4 cm/sec(0.8-1.3m/s) MV A max dionisio: 38.0 cm/sec(0.0-0.0m/s) MV E/A: 2.0 (<1.5) MMode/2D Measurements Calculations TAPSE: 1.8 cm FS: 28.6 % Ao root area: LVOT diam: 2.0 cm RV S Dionisio: EDV(Teich): 4.4 cm2 LVOT area: 3.0 cm2 10.9 cm/sec 51.2 ml ESV(Teich): 22.4 ml EF(Teich): 56.2 % __ LVLd ap4: 7.2 cm SV(MOD-sp4): LAV(MOD-sp4): LA A2 area: 9.4 cm2 EDV(MOD-sp4): 29.3 ml 17.0 ml 54.1 ml LAV(MOD-sp2): LA A4 area: 11.7 cm2 LVLs ap4: 7.2 cm 18.6 ml LA length (vol): ESV(MOD-sp4): 6.3 cm 24.8 ml LA vol: 14.9 ml EF(MOD-sp4): 54.2 % LA vol index: 10.0 ml/m2 Doppler Measurements Calculations MV dec time: MV V2 max: E/E' lat: 5.2 MV dec slope: 0.24 sec 80.4 cm/sec E/E' med: 7.0 MV max P.3 cm/sec2 96.0 mmHg MV V2 mean: 49.6 cm/sec MV mean P.1 mmHg MV V2 VTI: 18.9 cm MVA(VTI): 2.6 cm2 __ Ao V2 max: LV V1 max PG: MR max dionisio: TV max P.0 mmHg 108.6 cm/sec 2.8 mmHg 490.4 cm/sec Ao max P.7 mmHgLV V1 mean PG: MR max PG: Ao mean P.6 mmHg 96.3 mmHg 3.0 mmHg LV V1 mean: Ao V2 mean: 60.7 cm/sec 82.1 cm/sec LV V1 VTI: 16.0 cm Ao V2 VTI: 21.3 cm GALEN(I,D): 2.3 cm2 GALEN(V,D): 2.4 cm2 __ TR max dionisio: 202.0 cm/sec TR max P.3 mmHg RAP systole: 3.0 mmHg Transcribed By: ARMIDA Performed At: 04/03/24 0847 Signed By: Danuta Franklin DO 04/03/24 1445 Normal [facility] Lenka 03-01-2024 KIRAN Telephone (NRBETH) CHARLY FOSTER ([id number]) 2000 F Date Time Provider Department 03/01/24 HUSSEIN BROWNE During your visit today, we recorded the following information about you: Andria Cardona MA 03/01/2024 11:58 AM Signed Left voice mail to call office regarding ins. Information for Ubrelvy 50 mg. Cover my meds states she has no coverage under insurance. Need updated insurance information to submit prior auth Allergies As of Date: 03/01/2024 Noted Allergy Reaction CODEINE 09/19/2014 4 - [...] RN - Fully Assessed Reason for Visit: Insurance Authorization [[id number]] Prescriptions as of 03/01/2024 - ubrogepant (UBRELVY) 50 mg tablet Take 1 tablet by mouth as needed (migraine headache). - busPIRone (BUSPAR) 10 mg tablet Take 1 tablet by mouth every 12 hours. - ondansetron orally disintegrating (ZOFRAN ODT) 4 mg disintegrating tablet DISSOLVE 1 (ONE) TABLET ON THE TONGUE EVERY 8 HOURS NEEDED FOR NAUSEA AND VOMITING Problem List As Of Date 03/01/2024 Noted Resolved Elevated prolactin level [R79.89] 12/19/2023 Encounter Status:Closed by ANDRIA CARDONA on 03/01/24 [facility] No Panel Informationon 01-09 Human Chorionic Gonadotropin, Quant <1 mIU/mL [facility] Comment on above: 5-50 0.2-1 DIUS57-44 0 1-2 DRFRT100-2,000 2-3 FNHUU150-67,000 3-4 WEEKS1,000-50,000 4-5 WEEKS10,000-100,000 5-6 WEEKS15,000-200,000 6-8 WEEKS10,000-100,000 2-3 MONTHS [facility] ECG *CARDIOLOGY ONLY*on 01-06-2024 [facility] ECG *CARDIOLOGY ONLY* [facility] [place] [address] [place], [place] [id number] Electrocardiograph Report Signed Patient: Charly Foster MR#: [id number] [id number] : 2000 Acct:[id number] Age/Sex: 23 / F ADM Date: 01/06/24 Loc: EKGCARDIO Room: Type: [facility] Attending Dr: Kya Hoskins MD Ordering Provider: Kya Hoskins MD Date of Service: 01/06/24 ECG/FPG ECG *CARDIOLOGY ONLY*: I05.9 - Rheumatic mitral valve disease, unspecified Copies to: Test Reason : Blood Pressure : / mmHG Vent. Rate : 104 BPM Atrial Rate : 104 BPM P-R Int : 136 ms QRS Dur : 082 ms QT Int : 330 ms P-R-T Axes : 073 100 077 degrees QTc Int : 434 ms Sinus tachycardia Rightward axis Abnormal ECG No previous ECGs available Confirmed by Roel Tam ([id number]) on 01/10/2024 8:31:14 AM Referred By: Electronically Signed By:Roel Tam Transcribed By: MUS Signed By Roel Tam MD 01/10/24 0831 Normal [facility] CNPRajni 12-12-2023 CNPN Telephone (SPNMED) CHARLY FOSTER ([id number]) 2000 F Date Time Provider Department 12/12/23 HUSSEIN BROWNE SPNMSUSAN During your visit today, we recorded the [...] Fully Assessed Reason for Visit: Patient Question [1477] Cmt: Insurance information for medication Prescriptions as [...] Encounter Status:Closed by ANDRIA CARDONA on 12/13/23 [facility] CHARLY FOSTER ([id number]) 2000 F Date Time Provider Department 12/12/23 HUSSEIN BROWNE During your visit today, we recorded the following information about you: Lawrence Kinsey RN 12/12/2023 11:29 AM Signed Kandice Garcia, [facility], GeovanniCHRISTIAN left message on nurse line for provider today with medication question regarding recent prescription for Ubrelvy 50 mg. Tablets. You sent over a prescription for 16 tablets but the medication comes in a box of 10 and we do not split boxes. I was wondering if you could change the quantity to a value of 10. Spoke to Pharmacist at [facility] who was advised that 16 is the maximum monthly helper shear operator recommended dose. They have started prior authorization [...] Fully Assessed Reason for Visit: Medication Question [4648] Prescriptions as of 12/12/2023 - ubrogepant (UBRELVY) [...] Status:Closed by LAWRENCE KINSEY on 12/12/23 Normal [facility] MR Pituitary and Sella turci ca WO and W contrast Olga 11-23-2023 IMPRESSION: No pituitary lesion. Adenohypophysis is within normal size limits for age and gender. Cadd Drafter: PSCB Transcribe Date/Time: Nov 23 2023 2:00P Dictated by : DANNIE TYLER DO This examination was interpreted and the report reviewed and electronically signed by: DANNIE TYLER DO on Nov 23 2023 2:08PM [facility] DIVISION OF RADIOLOGY * * *Final Report* * * DATE OF EXAM: Nov 23 2023 1:22PM [facility] 0314 - MRI PITUITARY WO/W IVCON [...] underlying skull base. DIVISION OF RADIOLOGY Provider, [facility] [facility] - 11/23/2023 * * *Final Report* * * DATE OF EXAM: Nov 23 2023 1:22PM [facility] 031 - MRI PITUITARY WO/W IVCON / PROCEDURE [...] normal size limits for age and gender. Cadd Drafter: ADRIÁN Transcribe Date/Time: Nov 23 2023 2:00P Dictated by : DANNIE TYLER DO This examination was interpreted and the report reviewed and electronically signed by: DANNIE TYLER DO on Nov 23 2023 2:08PM [facility] Radiology Study observation (narrative) [facility] MR Pituitary and Sella turci ca WO and W contrast IVOrdered By: Ccf Provider on 11-23-2023 [facility] MRI PITUITARY WO/W IVCONon 0 11-23-2023 MRI PITUITARY WO/W IVCON * * *Final Report* * * DATE OF EXAM: Nov 23 2023 1:22PM [facility] 0314 - MRI PITUITARY WO/W IVCON [...] normal size limits for age and gender. Cadd Drafter: ADRIÁN Transcribe Date/Time: Nov 23 2023 2:00P Dictated by : DANNIE TYLER DO This examination was interpreted and the report reviewed and electronically signed by: DANNIE TYLER DO on Nov 23 2023 2:08PM EST [id number] Normal [facility] [place] 11-21-2023 CNPN Telephone (ENDOMN) CHARLY FOSTER ([id number]) 2000 F Date Time Provider Department 11/21/23 MONSERRAT NORTH ENDOMN During your visit today, we recorded the following information about you: Key Moore 11/21/2023 6:16 PM Signed Updated clinical notes from [facility] Date collected 10/19/23 Date scanned in chart 11/21/23 Key Meneses [employer] 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 Normal [facility] ACTH Plas-ncon 11-17-2023 Corticotropin (P) [Mass/Vol] 7.3 pg/mL Normal 7.2-63.3 [facility] Comment on above: Order Comment: Speci men Type: BLOOD SPECIMEN Ordering Facility: [facility] Address: [address] [place] [address] Result Comment: ACTH Reference Range: 7-10 am: 7.2 - 63.3 pg/mL Performed By: #### I LGF1 #### [facility] CLIA [id number] [address] [place] [address] [id number] [place] [address] [place] Cortis SerPl-mCncon 11-17-19 Cortisol [Mass/Vol] 13.5 ug/dL Normal 4.8-19.5 [facility] Comment on above: Order Comment: Speci men Type: BLOOD SPECIMEN Ordering Facility: [facility] Address: [address] [place] [address] Result Comment: Prov ided reference range is from 6-10 AM sample collection time. Cortisol Reference Range: 6-10 AM = 4.8-19.5 ug/dL, 4-8 PM = 2.5-11.9 ug/dL Performed By: #### I LGF1 #### [facility] CLIA [id number] [address] [place] [address] [place] DHEA BLOODon 11-17-2023 DHEA 2.677 ng/mL Normal 1.330-7.780 [facility] Comment on above: Order Comment: Speci men Type: BLOOD SPECIMEN Ordering Facility: [facility] Address: [address] [place] [address] Result Comment: INTERPRETIVE INFORMATION: Dehydroepiandrosterone, Females 18 years and older: Postmenopausal: 0.60-5.73 ng/mL REFERENCE INTERVAL: Dehydroepiandrosterone by [facility] Access complete set of age- and/or gender-specific reference intervals for this test in the [employer] (Pikhub). This test was developed and its performance characteristics determined by [employer]. It has not been cleared or approved by the US Food and Drug Administration. This test was performed in a CLIA certified laboratory and is intended for clinical purposes. Performed By: [employer] [facility] [address] [place] [address] Hearing Screener: Josse Gardiner MD, PhD CLIA Number: [id number] Performed By: #### I LGF1 #### [facility] CLIA [id number] [address] [place] [address] [place] Estradiol SerPl-mCncon 11-16 E2 [Mass/Vol] 92 pg/mL Normal [facility] Comment on above: Order Comment: Speci men Type: BLOOD SPECIMEN Ordering Facility: [facility] Address: [address] [place] [address] Result Comment: This test is not suitable [...] 3243 pg/mL Second trimester : 1561 to 37699 pg/mL Third trimester : 8285 to >11615 pg/mL Post-menopausal Estradiol reference range: < 41 pg/mL Reference: 1. Estradiol - E2 (Estradiol III) [package insert V 3.0 Somali]. [employer], [place], [place], December 2015. Performed By: #### I LGF1 #### [facility] CLIA [id number] [address] [place] [address] [place] FSH SerPl-aCncon 11-17-2023 Follitropin Qn 4.6 m[IU]/mL Normal See comment [facility] Comment on above: Order Comment: Speci men Type: BLOOD SPECIMEN Ordering Facility: [facility] Address: [address] [place] [address] Result Comment: Refe rence range: Follicular: 3.5-12.5 mIU/mL Ovulation: 4.7-21.5 mIU/mL Luteal: 1.7-7.7 mIU/mL Postmenopausal: 25.8-134.8 mIU/mL Performed By: #### I LGF1 #### [facility] CLIA [id number] [address] [place] [address] [place] INSULIN LIK GR FAC Ion 11-16 INSULIN LIK GR FAC 1 363 ng/mL High 102-317 [facility] Comment on above: Order Comment: Speci men Type: BLOOD SPECIMEN Ordering Facility: [facility] Address: [address] [place] [address] Performed By: #### I LGF1 #### [facility] CLIA [id number] [address] [place] [address] [place] LH SerPl-aCncon 11-17-2023 Lutropin Qn 5.3 m[IU]/mL Normal See comment [facility] Comment on above: Order Comment: Speci men Type: BLOOD SPECIMENOrdering Facility: [facility] Address: [address] [place] [address] Result Comment: Refe rence range: Follicular: 2.4-12.6 mIU/mL Midcycle: 14.0-95.6 mIU/mL Luteal: 1.0-11.4 mIU/mL Post [place]: 7.7-58.5 mIU/mL Performed By: #### 2 842-3, 2839-9, 3024-7, 03321-5 ####[facility] [id number] [place] [address] [place] Progest SerPl-mCncon 024 Progesterone [Mass/Vol] 7.9 ng/mL Normal See comment [facility] Comment on above: Order Comment: Speci men Type: BLOOD SPECIMENOrdering Facility: [facility] Address: [address] [place] [address] Result Comment: Mens trual Cycle Progesterone Reference Ranges: Follicular: <1.0 ng/mL Ovulation: <12.1 ng/mL Luteal: 1.8 to 23.9 ng/mL. Progesterone Reference Ranges vary by gestational period: First Trimester: 11.0 to 44.3 ng/mL Second Trimester: 25.4 to 83.3 ng/mL Third Trimester: 58.7 to 214 ng/mL Post menopausal Progesterone: <0.5 ng/mL Reference: 1. Progesterone (Progesterone III) [package insert V 1.0 Somali]. [employer], [place], [place]. April 2015. Performed By: #### 2 842-3, 2839-9, 3024-7, 22969-0 ####[facility] [id number] [place] [id number] [place] Prolactin SerPl-mCncon 11-16 Prolactin [Mass/Vol] 75.1 ng/mL High 4.5-26.8 [facility] Comment on above: Order Comment: Speci men Type: BLOOD SPECIMENOrdering Facility: [facility] Address: [address] [place] [address] Result Comment: Prol actin test is performed using the [employer] Electrochemiluminescence Immunoassay method. Results obtained with different methods or kits cannot be used interchangeably. Performed By: #### 2 842-3, 2839-9, 3024-7, 69637-7 ####[facility] [id number] [place] [address] [place] Somatostat Plas-mCncon 11-16 Somatostatin (P) [Mass/Vol] 0.13 ng/mL Normal <3.61 [facility] Comment on above: Order Comment: Speci men Type: BLOOD SPECIMEN Ordering Facility: [facility] Address: [address] [place] [address] Performed By: #### 2 961-1 #### [facility] CLIA [id number] [address] [place] [address] [place] T4 Free SerPl-mCncon 024 Free T4 [Mass/Vol] 1.5 ng/dL Normal 0.9-1.7 [facility] Comment on above: Order Comment: Speci men Type: BLOOD SPECIMENOrdering Facility: [facility] Address: [address] [place] [address] Performed By: #### 2 842-3, 2839-9, 3024-7, 88125-9 ####[facility] [id number] [place] [address] [place] T4/FTI/T4Uon 11-17-2023 FTI 7.4 ug/dL Normal 5.3-10.8 [facility] Comment on above: Order Comment: Speci men Type: BLOOD SPECIMEN Ordering Facility: [facility] Address: [address] [place] [address] Performed By: #### I LGF1 #### [facility] CLIA [id number] [address] [place] [address] [place] T4 [Mass/Vol] 7.4 ug/dL Normal 5.5-10.2 [facility] Comment on above: Order Comment: Speci men Type: BLOOD SPECIMEN Ordering Facility: [facility] Address: [address] [place] [address] Performed By: #### I LGF1 #### [facility] CLIA [id number] [address] [place] [address] [place] T4 uptake [Mass/Vol] 1.00 Normal 0.91-1.19 [facility] Comment on above: Order Comment: Speci men Type: BLOOD SPECIMEN Ordering Facility: [facility] Address: [address] [place] [address] Performed By: #### I LGF1 #### [facility] CLIA [id number] [address] [place] [address] [place] TSH SerPl-aCncon 11-17-2023 TSH Qn 1.760 m[IU]/L Normal 0.270-4.200 [facility] Comment on above: Order Comment: Speci men Type: BLOOD SPECIMEN Ordering Facility: [facility] Address: [address] [place] [address] Result Comment: If t he patient is , TSH reference range varies by gestational period: First Trimester (weeks 9-12): 0.180-2.990 mIU/L Second Trimester: 0.110-3.980 mIU/L Third Trimester: 0.480-4.710 mIU/L Antonio Arias et al. A Practical Approach for the Verifications and Determination of Site- and Trimester-Specific Reference Intervals for Thyroid Function tests in . Thyroid, 2019:29:3:412-420. Massimo Howell, et al. 2017 Guidelines of the [place] Thyroid Association for the Diagnosis and Management of Thyroid Disease during and the . Thyroid, 2017:27:3:315-389. Performed By: #### I LGF1 #### [facility] CLIA [id number] [address] [place] [address] [place] CNPRajni 11-16-2023 CNPN Telephone ([facility]) CRISTIANCHARLY ([id number]) 2000 F Date Time Provider Department 11/16/23 MONSERRAT NORTH During your visit today, we recorded the following information about you: Gil Reyes RN 11/16/2023 9:41 AM Signed Call placed to Charly Foster. Discussed appointment on Tuesday with Dr. North. She tells me she was referred due to abnormal MRI findings. MRI is available for review in [employer]. She has not had pituitary lab work completed. Explained lab work will help have a more productive appointment. I will place orders and she can have them completed at any [facility] lab prior to 9 am. She is going to try to have them completed tomorrow morning. Instructed to refrain from sexual activity or nipple stimulation 12 hours prior to obtaining labs. Understands not to take any steroids the morning of lab work. All questions answered at this time. 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 - Other [3602] Primary Visit Diagnosis:Hypophysitis (HCC) [E23.6] Order(s):ESTRADIOL-17B BLD [SQE2] Order #: [id number] FUTURE PROLACTIN [SQPROL] Order #: [id number] FUTURE PROGESTERONE [SQPROG] Order #: [id number] FUTURE THYROID STIMULATING HORMONE [SQTSH] Order #: [id number] FUTURE GROWTH HORMONE [SQGH] Order #: [id number] FUTURE LUTEINIZING HORMONE [SQLH] Order #: [id number] FUTURE INSULIN LIK GR FAC I [SQILGF1] Order #: [id number] FUTURE FOLLICLE STIMULATING HORMONE [SQFSH] Order #: [id number] FUTURE T4 FREE/FREE THYROXINE [SQFT4] Order #: [id number] FUTURE CORTISOL, SERUM [SQCOR] Order #: [id number] FUTURE ACTH BLD [SQACTH] Order #: [id number] FUTURE T4/FTI/T4U [GFU6CCP] Order #: [id number] FUTURE DHEA BLOOD [SQDHEA] Order #: [id number] FUTURE Problem List As Of Date: 11/16/2023 (None) Encounter Status:Closed by RITAGIL on 11/16/23 Normal [facility] [place] esophagus ugion 4 [place] esophagus ugi [facility] Main [address] [address] Fluoroscopy Report Signed Patient: Charly Foster MR#: [id number] 1015 : 2000 Acct:[id number] Age/Sex: 23 / F ADM Date: 11/07/23 Loc: XD Room: Type: [facility] Attending Dr: Reji Bailey [employer] Copies to: Reji Bailey APRN Ordering Provider: Reji Bailey APRN Date of Service: 11/07/23 FL/FL esophagus ugi: R11.0 - Nausea DOUBLE CONTRAST UPPER GI SERIES CLINICAL HISTORY: Nausea, upper abdominal pain. Dysphagia. COMPARISON: None TECHNIQUE: Double contrast upper GI series was performed. Cumulative Air Kerma in mGy: 104.63 mGy FINDINGS: Pipe Machine Operator image demonstrates no acute findings. No esophageal [...] ENDOSCOPY. Impression dictated by: Bautista Bowser Jr., D.OSiemon11/07/2023 12:54 PM Dictation Location: [place] [address] Transcribed By: [facility] 11/07/23 1254 Dictated By: Bautista Bowser Jr, DO 11/07/23 1250 Signed By: 11/07/23 1254 Normal [facility] MR head/brain wo/w conon MR head/brain wo/w con [facility] Main [address] [address] MRI Report Signed Patient: Charly Foster MR#: [id number] 1015 : 2000 Acct:[id number] Age/Sex: 23 / F ADM Date: 10/27/23 Loc: MR Room: Type: [facility] Attending Dr: Bentley Byrne DO Copies to: [...] Puneet Patrick M.D.10/27/2023 7:53 PM Dictation Location: [place] [address] Transcribed By: [facility] 10/27/231952 Dictated By: Puneet Patrick II, MD 10/27/231944 Signed By: 10/27/231952 Normal [facility] Basophils Auto (Bld) [#/Vol] on 10-10-2023 Basophils (Bld) [#/Vol] 0.1 10 3/uL 0.0-0.1 [facility] Basophils/100 WBC Auto (Bld) on 10-10-2023 Basophils/100 WBC (Bld) 0.5 % 0.2-2.0 [facility] Eosinophils/100 WBC Auto (Bl d)on 10-10-2023 Eosinophils/100 WBC (Bld) 0.8 % 0.9-7.0 [facility] Erythrocyte distribution wid th Auto (RBC) [Ratio]on 10-10-2023 Erythrocyte distribution width (RBC) [Ratio] 12.3 % 11.0-15.0 [facility] Estimated glomerular filtrat ion rate (GFR) non- Americanon 10-10-2023 GFR/1.73 sq M.predicted among non-blacks MDRD (S/P/Bld) [Vol rate/Area] mL/min/{1.73_m2} >=60 [facility] Hematocrit Auto (Bld) [Volum e fraction]on 10-10-2023 Hematocrit (Bld) [Volume fraction] 43.6 % 36.0-48.0 [facility] Hemoglobin [Mass/volume] in Bloodon 10-10-2023 Hemoglobin (Bld) [Mass/Vol] 15.0 g/dL 12.0-16.0 [facility] Laboratory - Chemistry and C hemistry - challengeon 10-10-2023 Calcium [Mass/Vol] 8.4 mg/dL 8.5-10.1 [facility] Chloride [Moles/Vol] 104 mmol/L 98-107 [facility] CO2 [Moles/Vol] 27.2 mmol/L 21.0-32.0 [facility] Creatinine [Mass/Vol] 0.81 mg/dL 0.55-1.02 [facility] GFR/1.73 sq M.predicted MDRD (S/P/Bld) [Vol rate/Area] mL/min/{1.73_m2} >=60 [facility] Glucose [Mass/Vol] 98 mg/dL 74-106 [facility] Potassium [Moles/Vol] 3.7 mmol/L 3.5-5.1 [facility] Sodium [Moles/Vol] 140 mmol/L 136-145 [facility] TSH Qn 0.840 m[IU]/L 0.358-3.740 [facility] Urea nitrogen [Mass/Vol] 10.0 mg/dL 7.0-18.0 [facility] Urea nitrogen/Creatinin e [Mass ratio] 12.3 mg/mg [facility] Laboratory - Hematology and Cell countson 10-10-2023 ESR (Bld) [Velocity] 4 mm/h <=20 [facility] Immature granulocytes/100 WBC (Bld) 0.1 % 0.0-0.5 [facility] Leukocytes [#/volume] correc jeri for nucleated erythrocytes in Blood by Automated counon 10-10-2023 WBC corrected for nucl RBC Auto (Bld) [#/Vol] 11.0 10 3/uL 4.0-11.0 [facility] Lymphocytes Auto (Bld) [#/Vo l]on 10-10-2023 Lymphocytes (Bld) [#/Vol] 2.0 10 3/uL 1.2-3.8 [facility] Lymphocytes/100 WBC Auto (Bl d)on 10-10-2023 Lymphocytes/100 WBC (Bld) 17.9 % 20.5-60.0 [facility] MCH Auto (RBC) [Entitic mass ]on 10-10-2023 MCH (RBC) [Entitic mass] 31.2 pg 26.7-34.0 [facility] MCHC Auto (RBC) [Mass/Vol]on 10-10-2023 MCHC (RBC) [Mass/Vol] 34.4 g/dL 29.9-35.2 [facility] MCV Auto (RBC) [Entitic vol] on 10-10-2023 MCV (RBC) [Entitic vol] 90.6 fL 81.0-99.0 [facility] Monocytes Auto (Bld) [#/Vol] on 10-10-2023 Monocytes (Bld) [#/Vol] 0.8 10 3/uL 0.3-0.8 [facility] Monocytes/100 WBC Auto (Bld) on 10-10-2023 Monocytes/100 WBC (Bld) 6.9 % 1.7-12.0 [facility] Neutrophils Auto (Bld) [#/Vo l]on 10-10-2023 Neutrophils (Bld) [#/Vol] 8.1 10 3/uL 1.4-6.5 [facility] Neutrophils/100 WBC Auto (Bl d)on 10-10-2023 Neutrophils/100 WBC (Bld) 73.8 % 43.0-75.0 [facility] No Panel Informationon 10-09 Eosinophils # (Auto) 0.1 10 3/uL 0.0-0.7 [facility] Immature Granulocyte # (Auto) 0.01 10 3/uL 0.00-0.03 [facility] Platelet mean volume Auto (B ld) [Entitic vol]on 10-10-2023 Platelet mean volume (Bld) [Entitic vol] 10.2 fL 9.5-13.5 [facility] Platelets Auto (Bld) [#/Vol] on 10-10-2023 Platelets (Bld) [#/Vol] 262 10 3/uL 150-450 [facility] RBC Auto (Bld) [#/Vol]on RBC (Bld) [#/Vol] 4.81 10 6/uL 4.20-5.40 [facility] Serum or plasma anion gap de terminationon 10-10-2023 Anion gap [Moles/Vol] 12.5 mmol/L [facility] Serum or plasma free cefurox madeline measurement (mass/volume)on 10-10-2023 Cefuroxime free [Mass/Vol] Negative Negative [facility] Comment on above: Performed at: - [facility] [address] [id number] Director: Garret Bledsoe PhD, Phone: [phone] COVID + FLU Quick Testingon 07-05-2023 SARS-CoV-2 (COVID-19) RNA FRANKLIN+probe Ql (Unsp spec) Negative [employer] Other COVID + FLU Quick Testing Negative [facility] Other Test, Urineon Beta HCG ( test) Ql (U) Negative [employer] Other XR hand RT min 3V*on 023 XR hand RT min 3V* [facility] alive.cn Other XR hand RT min 3V* [facility] Main [place] alive[employer]cn Other XR hand RT min 3V* [address] [place] [address] alive.cn Other XR hand RT min 3V* [place] [address] alive.cn Other XR hand RT min 3V* XRay Report [employer] Other XR hand RT min 3V* Signed [employer] Other XR hand RT min 3V* Patient: Milan Foster MR#: [id number] [employer] Other XR hand RT min 3V* 1015 [employer] Other XR hand RT min 3V* : 2000 Acct:[id number] [employer] Other XR hand RT min 3V* Age/Sex: 23 / F ADM Date: 06/24/23 [employer] Other XR hand RT min 3V* Loc: XDUCLY Room: pe: REG CLI [employer] Other XR hand RT min 3V* Attending Dr: Adriana Stallworth [facility] alive.cn Other XR hand RT min 3V* Copies to: Adriana silva [facility]cn Other XR hand RT min 3V* Ordering Provider: Luther Stallworth APRN [employer] Other XR hand RT min 3V* Date of Service: 06/24/23 [employer] Other XR hand RT min 3V* [address]) XR/XR hand RT min 3V*: Injury [employer] Other XR hand RT min 3V* 3 views right hand p lucila film [facility] Other XR hand RT min 3V* COMPARISON: None [facility] Other XR hand RT min 3V* HISTORY: Right hand injury [facility] Other XR hand RT min 3V* ACUTE FINDINGS: None [facility] Other XR hand RT min 3V* DEGENERATIVE CHANGE: Unremarkable [employer] Other XR hand RT min 3V* SOFT TISSUE FINDINGS : Unremarkable [employer] Other XR hand RT min 3V* JOINT EFFUSION: None [employer] Other XR hand RT min 3V* POSTOP CHANGES: None [facility] Other XR hand RT min 3V* BONY MINERALIZATION: Adequate [facility] Other XR hand RT min 3V* X R/XR hand RT min 3V* [employer] Other XR hand RT min 3V* IMPRESSION: No acute findings [employer] Other XR hand RT min 3V* Impression dictated by: Saul Staton M.D.06/24/2023 10:17 AM [employer] Other XR hand RT min 3V* Dictation Location: RADIO--12 [facility] Other XR hand RT min 3V* Transcribed By: JONATHAN 06/24/23 [facility] alive.cn Other XR hand RT min 3V* Dictated By: Yung Staton DO 06/24/23 [facility]5 alive.cn Other XR hand RT min 3V* Signed By: [place] [employer] Other XR hand RT min 3V* 06/24/23 1017 [facility] [employer] Other XR hand RT min 3V* [facility] Main [place] [address] [place] [address] XRay Report Signed Patient: Charly Foster MR#: [id number] 1015 : 2000 Acct:[id number] Age/Sex: 23 / F ADM Date: 06/24/23 Loc: XDUCLY Room: Type: [facility] Attending Dr: Adriana Stallworth APRN Copies to: [...] Saul Staton M.D.06/24/2023 10:17 AM Dictation Location: [facility] Transcribed By: [facility] 06/24/23 1017 Dictated By: Saul Staton DO 06/24/23 1015 Signed By: 06/24/23 1017 Normal [facility] Urinalysis - AUTOMATEDon Appearance (U) cloudy [employer] Other Bilirubin Ql (U) [employer] ast [employer] Other Color (U) adriana [employer] Other Glucose Ql (U) Negative [employer] Other Hemoglobin Ql (U) [employer] Other Ketones Ql (U) Negative [employer] Other Leukocyte esterase Test strip Ql (U) [employer] Other Nitrite Ql (U) Positive [employer] Other pH (U) 6.5 [pH] [employer] Other Protein Ql (U) >300 [employer] Other Specific gravity (U) [Rel density] >1.030 [employer] Other Urobilinogen (U) [Mass/Vol] 1.0 mg/dL [employer] Other Urinalysis - AUTOMATED [employer] Other Urine Cultureon 01-15-2023 Bacteria identified Cx Nom (U) [employer] Other URon 12-02-2022 , QUAL Negative Normal NEGATIVE [facility] Comment on above: Performed By: #### P REGU #### [facility] [address] [place] [address] Dr. Corie Frias XR ANKLE LT MIN [...] JES SHEIKH Date: 2022-12-02 19:47 Normal The [facility] XR FOOT LT MIN 3 VIEWSon XR [...] by: JES SHEIKH Date: 2022-12-02 19:48 Normal The [facility] COVID + FLU Quick Testingon 09-10-2022 SARS-CoV-2 (COVID-19) RNA FRANKLIN+probe Ql (Unsp spec) Negative [facility] [employer] Other COVID + FLU Quick Testing Negative [facility] [employer] Other Quick Strepon 09-10-2022 S. pyogenes Org specific cx Ql (Throat) Negative [facility] [employer] Other Quick Strep [facility] [employer] Other COVID/FLU RT-PCRon 2 SARS-CoV-2 (COVID-19) RNA FRANKLIN+probe Ql (Unsp spec) Negative [facility] [employer] Other COVID/FLU RT-PCR Negative [facility] [employer] Other Progress Noteon 08-20-2021 [employer] Authentication Interface Message Text Previous Diagnoses: 1. [...] valve pr (more content not included)... Normal [facility] COVID Quick Testingon 2020 Result Negative [employer] Other Vital Signs Date Time Vital Sign Value Performing Clinician Facility 04-12-2024 11:44-0400 Body height 165.1 cm MD [employer] Work Phone: [facility] 04-12-2024 11:44-0400 Body mass index (BMI) [Ratio] 17.9 kg/m2 MD [employer] Work Phone: [facility] 04-12-2024 11:44-0400 Body weight 48.98 kg MD [employer] Work Phone: [facility] 04-12-2024 11:44-0400 Diastolic blood pressure 70 mm[Hg] MD [employer] Work Phone: [facility] 04-12-2024 11:44-0400 Heart rate 72 /min MD [employer] Work Phone: [facility] 04-12-2024 11:44-0400 Respiratory rate 18 /min MD [employer] Work Phone: [facility] 04-12-2024 11:44-0400 SaO2% (BldA) [Mass fraction] 96 % MD [employer] Work Phone: [facility] 04-12-2024 11:44-0400 Systolic blood pressure 108 mm[Hg] MD [employer] Work Phone: [facility] 02-15-2024 13:20-0400 Body height 165.1 cm MD [employer] Work Phone: [facility] 02-15-2024 13:20-0400 Body mass index (BMI) [Ratio] 17.8 kg/m2 MD [employer] Work Phone: [facility] 02-15-2024 13:20-0400 Body weight 48.53 kg MD [employer] Work Phone: [facility] 01-06-2024 09:35-0400 Body height 165.1 cm MD [employer] Work Phone: [facility] 01-06-2024 09:35-0400 Body mass index (BMI) [Ratio] 17.6 kg/m2 MD [employer] Work Phone: [facility] 01-06-2024 09:35-0400 Body weight 48.08 kg MD [employer] Work Phone: [facility] 01-06-2024 09:35-0400 Diastolic blood pressure 78 mm[Hg] MD [employer] Work Phone: [facility] 01-06-2024 09:35-0400 Heart rate 105 /min MD [employer] Work Phone: [facility] 01-06-2024 09:35-0400 Respiratory rate 18 /min MD [employer] Work Phone: [facility] 01-06-2024 09:35-0400 SaO2% (BldA) [Mass fraction] 98 % MD [employer] Work Phone: [facility] 01-06-2024 09:35-0400 Systolic blood pressure 100 mm[Hg] MD [employer] Work Phone: [facility] 12-05-2023 10:52-0400 Body height 165.1 cm MD [employer] Work Phone: [facility] 12-05-2023 10:52-0400 Body mass index (BMI) [Ratio] 17.9 kg/m2 MD [employer] Work Phone: [facility] 12-05-2023 10:52-0400 Body weight 48.7 kg MD [employer] Work Phone: [facility] 12-05-2023 10:52-0400 Diastolic blood pressure 73 mm[Hg] MD [employer] Work Phone: [facility] 12-05-2023 10:52-0400 Heart rate 109 /min MD [employer] Work Phone: [facility] 12-05-2023 10:52-0400 Systolic blood pressure 102 mm[Hg] MD [employer] Work Phone: [facility] 11-18-2023 09:01-0400 Body height 166.1 cm Monserrat North MD Work Phone: [facility] 11-18-2023 09:010400 Body mass index (BMI) [Ratio] 17.83 kg/m2 Monserrat North MD Work Phone: [facility] 11-18-2023 09:010400 Body temperature 97.7 [degF] Monserrat North MD Work Phone: [facility] 11-18-2023 09:01-0400 Body weight 49.2 kg Monserrat North MD Work Phone: [facility] 11-18-2023 09:01-0400 Diastolic blood pressure 83 mm[Hg] Monserrat North MD Work Phone: [facility] 11-18-2023 09:01-0400 Heart rate 104 /min Monserrat North MD Work Phone: [facility] 11-18-2023 09:01-0400 Respiratory rate 18 /min Monserrat North MD Work Phone: [facility] 11-18-2023 09:01-0400 SaO2% (BldA) [Mass fraction] 99 % Monserrat North MD Work Phone: [facility] 11-18-2023 09:01-0400 Systolic blood pressure 116 mm[Hg] Monserrat North MD Work Phone: [facility] 10-21-2023 09:33-0400 Body height 165.1 cm [facility] 10-21-2023 09:33-0400 Body mass index (BMI) [Ratio] 18.3 kg/m2 [facility] 10-21-2023 09:33-0400 Body weight 49.89 kg [facility] 10-10-2023 13:00-0400 Body height 165.1 cm [facility] 10-10-2023 13:00-0400 Body mass index (BMI) [Ratio] 18.1 kg/m2 [facility] 10-10-2023 13:00-0400 Body weight 49.44 kg [facility] 10-10-2023 13:00-0400 Diastolic blood pressure 78 mm[Hg] [facility] 10-10-2023 13:00-0400 Heart rate 76 /min [facility] 10-10-2023 13:00-0400 Systolic blood pressure 112 mm[Hg] [facility] 08-23-2023 11:30-0500 Body height 165.1 cm [facility] 08-23-2023 11:30-0500 Body weight 50.71 kg [facility] 08-23-2023 11:30-0500 Diastolic blood pressure 73 mm[Hg] [facility] 08-23-2023 11:30-0500 Systolic blood pressure 102 mm[Hg] [facility] 07-05-2023 18:00-0500 Body height 165.1 cm Kay Woodwardmond Other [facility] [employer] Other 07-05-2023 18:00-0500 Body mass index (BMI) [Ratio] 19.97 kg/m2 Kay Woodwardmond Other [facility] Other 07-05-2023 18:00-0500 Body temperature 99.1 [degF] Kay Woodwardmond Other [facility] Other 07-05-2023 18:00-0500 Body weight 54.43 kg Kay Woodwardmond Other [facility] Other 07-05-2023 18:00-0500 Respiratory rate 18 /min Kay Woodwardmond Other [facility] Other 07-05-2023 18:00-0500 SaO2% (BldA) [Mass fraction] 99 % Kay Woodwardmond Other [facility] Other 06-24-2023 09:45-0500 Body height 165.1 cm Adriana Stallworth Other [facility] Other 06-24-2023 09:45-0500 Body mass index (BMI) [Ratio] 20.13 kg/m2 Adriana Stallworth Other [facility] Other 06-24-2023 09:45-0500 Body temperature 97.7 [degF] Adriana Stallworth Other [facility] Other 06-24-2023 09:45-0500 Body weight 54.89 kg Adriana Stallworth Other [facility] Other 06-24-2023 09:45-0500 Respiratory rate 20 /min Adriana Stallworth Other [facility] Other 06-24-2023 09:45-0500 SaO2% (BldA) [Mass fraction] 98 % Adriana Stallworth Other [facility] Other 01-15-2023 11:40-0400 Body height 165.1 cm Kay Gillette Other [facility] Other 01-15-2023 11:40-0400 Body mass index (BMI) [Ratio] 19.97 kg/m2 Kay Gillette Other [facility] Other 01-15-2023 11:40-0400 Body temperature 97.3 [degF] Kay Gillette Other [facility] Other 01-15-2023 11:40-0400 Body weight 54.43 kg Kay Woodwardmond Other [facility] Other 01-15-2023 11:40-0400 Diastolic blood pressure 68 mm[Hg] Kay Leta Other [facility] Other 01-15-2023 11:40-0400 Respiratory rate 18 /min Kay Woodwardmond Other [facility] Other 01-15-2023 11:40-0400 SaO2% (BldA) [Mass fraction] 98 % Kay Woodwardmond Other [facility] Other 01-15-2023 11:40-0400 Systolic blood pressure 108 mm[Hg] Kay Leta Other [facility] Other 09-10-2022 18:40-0500 Body height 165.1 cm Kay Leta Other [facility] Other 09-10-2022 18:40-0500 Body mass index (BMI) [Ratio] 19.97 kg/m2 Kay Leta Other [facility] Other 09-10-2022 18:40-0500 Body temperature 98.7 [degF] Kay Leta Other [facility] Other 09-10-2022 18:40-0500 Body weight 54.43 kg Kay Leta Other [facility] Other 09-10-2022 18:40-0500 Respiratory rate 18 /min Kay Leta Other [facility] Other 09-10-2022 18:40-0500 SaO2% (BldA) [Mass fraction] 99 % Kay Leta Other [facility] Other 06-14-2022 17:25-0500 Body height 165.1 cm Kay Leta Other [facility] Other 06-14-2022 17:25-0500 Body mass index (BMI) [Ratio] 19.13 kg/m2 Kay Leta Other [facility] Other 06-14-2022 17:25-0500 Body temperature 100.7 [degF] Kay Leta Other [facility] Other 06-14-2022 17:25-0500 Body weight 52.16 kg Kay Leta Other [facility] Other 06-14-2022 17:25-0500 Respiratory rate 18 /min Kaytera Gillette Other [facility] Other 06-14-2022 17:25-0500 SaO2% (BldA) [Mass fraction] 99 % Kay Leta Other [facility] Other 06-13-2021 15:30-0500 Body height 165.1 cm Adriana Ginty Other [facility] Other 06-13-2021 15:30-0500 Body mass index (BMI) [Ratio] 17.47 kg/m2 Adriana Ginty Other [facility] Other 06-13-2021 15:30-0500 Body temperature 97.9 [degF] Adriana Ginty Other [facility] Other 06-13-2021 15:30-0500 Body weight 47.63 kg Adriana Ginty Other [facility] Other 06-13-2021 15:30-0500 SaO2% (BldA) [Mass fraction] 98 % Adriana Ginty Other [facility] Other 04-26-2021 14:20-0400 Body height 165.1 cm Kay Leta Other [facility] Other 04-26-2021 14:20-0400 Body mass index (BMI) [Ratio] 17.47 kg/m2 Kay Gillette Other [facility] Other 04-26-2021 14:20-0400 Body temperature 98.7 [degF] Kay Gillette Other [facility] Other 04-26-2021 14:20-0400 Body weight 47.63 kg Kay Gillette Other [facility] Other 04-26-2021 14:20-0400 SaO2% (BldA) [Mass fraction] 98 % Kay Gillette Other [facility] Other Encounters Encounter Date Encounter Type Care Provider Facility Start: 04-12-2024 End: 04-12-2024 ambulatory PRANAY JANEY Not Available Start: 04-12-2024 End: 04-12-2024 ambulatory MD [employer] Work Phone: [facility] Work Phone: Start: 04-12-2024 End: 04-12-2024 Patient encounter procedure MD [employer] Work Phone: [facility] Work Phone: Start: 04-10-2024 End: 04-11-2024 ambulatory PRANAY CARRINGTONBLEY Not Available Start: 04-03-2024 End: 04-03-2024 ambulatory PRANAY ZEBBLEY Not Available Start: 04-03-2024 End: 04-03-2024 Patient encounter procedure MD [employer] Work Phone: [facility] Work Phone: Start: 04-03-2024 End: 04-03-2024 ambulatory MD [employer] Work Phone: [facility] Work Phone: Start: 03-29-2024 End: 03-30-2024 ambulatory PRANAY KELBLEY Not Available Start: 03-28-2024 End: 03-28-2024 ambulatory MOHAN T BLACKSTON Not Available Start: 03-20-2024 End: 03-20-2024 ambulatory PRANAY KELBLEY Not Available Start: 03-14-2024 End: 03-14-2024 ambulatory PRANAY KELBLEY Not Available Start: 03-08-2024 End: 03-08-2024 ambulatory MOHAN T BLACKSTON Not Available Start: 03-06-2024 End: 03-07-2024 ambulatory MOHAN T BLACKSTON Not Available Start: 03-01-2024 End: 03-02-2024 ambulatory PRANAY KELBLEY Not Available Start: 03-01-2024 Telephone encounter Hussein henderson MD Work Phone: Neurology Comment on above: Insurance Authorizat ion Start: 02-23-2024 End: 02-23-2024 ambulatory PRANAY KELBLEY Not Available Start: 02-21-2024 End: 02-21-2024 ambulatory KEEGAN MILLER Not Available Start: 02-15-2024 End: 02-15-2024 ambulatory MD [employer] Work Phone: [facility] Work Phone: Start: 02-15-2024 End: 02-15-2024 Patient encounter procedure MD [employer] Work Phone: [facility] Gastroenterology Work Phone: Start: 02-14-2024 End: 02-14-2024 ambulatory KEEGAN BRWILLIE Not Available Start: 02-09-2024 End: 02-10-2024 ambulatory PRANAY KELBLEY Not Available Start: 02-07-2024 End: 02-08-2024 ambulatory MOHAN Shanthi BLACKSTON Not Available Start: 01-10-2024 ambulatory MD Monster demarco Work Phone: [facility] Work Phone: Start: 01-10-2024 Non-patient / Non-visit MD Becky Brothers Work Phone: [facility] Work Phone: Start: 01-06-2024 End: 01-06-2024 ambulatory MD [employer] Work Phone: [facility] Work Phone: Start: 01-06-2024 End: 01-06-2024 Patient encounter procedure MD [employer] Work Phone: [facility] Cardiology Work Phone: Start: 12-12-2023 Telephone encounter [...] Start: 12-09-2023 End: 12-09-2023 ambulatory HUSSEIN BROWNE Facility:[facility] Start: 12-05-2023 End: 12-05-2023 ambulatory MD [employer] Work Phone: [facility] Work Phone: Start: 12-05-2023 End: 12-05-2023 Patient encounter procedure MD [employer] Work Phone: [facility] Work Phone: Start: 11-23-2023 End: 11-23-2023 ambulatory MONSERRAT NORTH Facility:[facility] Start: 11-23-2023 End: 11-23-2023 Subsequent hospital visit by physician [facility] White (Lg Bore/1.5t) Radiology MRI Comment on above: Abnormal brain MRI [ R90.89] Start: 11-21-2023 Telephone encounter Monserrat Sparrow MD Work Phone: Endocrinology Comment on above: [facility] Start: 11-18-2023 End: 11-18-2023 ambulatory MONSERRAT NORTH Facility:[facility] Start: 11-18-2023 End: 11-18-2023 Patient encounter procedure Monserrat North MD Work Phone: Endocrinology Comment on above: Abnormal brain MRI ( Primary Dx); Pituitary adenoma (HCC); Elevated prolactin level; Pituitary disorder (HCC); Generalized weakness; Generalized pain; Gait instability; Generalized abdominal pain Start: 11-17-2023 End: 11-17-2023 ambulatory MONSERRAT NORTH Facility:[facility] Start: 11-16-2023 Telephone encounter Monserrat Sparrow MD Work Phone: [facility] Comment on above: 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 Start: 11-07-2023 End: 11-07-2023 Patient encounter procedure MD [employer] Work Phone: [facility] [place] Work Phone: Start: 11-07-2023 End: 11-07-2023 ambulatory MD [employer] Work Phone: [facility] Work Phone: Start: 10-27-2023 End: 10-27-2023 Patient encounter procedure MD [employer] Work Phone: [facility] [place] Work Phone: Start: 10-27-2023 End: 10-27-2023 ambulatory MD [employer] Work Phone: [facility] Work Phone: Start: 10-21-2023 End: 10-21-2023 ambulatory [facility] Work Phone: Start: 10-21-2023 End: 10-21-2023 Patient encounter procedure [facility] Gastroenterology Work Phone: Start: 10-10-2023 End: 10-10-2023 ambulatory [facility] Work Phone: Start: 10-10-2023 End: 10-10-2023 Patient encounter procedure [facility] Work Phone: Start: 08-23-2023 End: 08-23-2023 Patient encounter procedure [facility]- Start: 07-05-2023 End: 07-05-2023 ambulatory Kay Gillette Other [facility] Other Start: 07-05-2023 Office outpatient vi sit 15 minutes Kay Gillette [facility] Start: 06-24-2023 Office outpatient vi sit 15 minutes Adriana Stallworth [facility] Start: 06-24-2023 End: 06-24-2023 Patient encounter procedure PHYSICIAN NO [facility] Work Phone: Start: 06-24-2023 End: 06-24-2023 ambulatory PHYSICIAN NO [facility] Other Start: 05-12-2023 (Televisit) Televisit Monster Malloy [facility] Start: 05-12-2023 End: 05-12-2023 ambulatory [facility] Other [facility] Other Start: 01-17-2023 End: 01-17-2023 ambulatory Kay Gillette Other [facility] Other Start: 01-17-2023 Telephone encounter Kay Gillette [facility] Start: 01-15-2023 Office outpatient vi sit 15 minutes Kay Gillette [facility] Start: 01-15-2023 Telephone encounter [facility] Start: 01-15-2023 End: 01-15-2023 ambulatory Kay Gillette Other [facility] Other Start: 01-15-2023 End: 01-15-2023 Departed Referred ANTIQUE COLLECTOR-C Kay Gillette Work Phone: [facility] [place] Work Phone: Start: 12-02-2022 End: 12-02-2022 ambulatory ANA RUBIO . Facility:[facility] Start: 09-16-2022 (Televisit) Televisit Monster Malloy [facility] Start: 09-16-2022 End: 09-16-2022 ambulatory [employer] [facility] Other [facility] Other Start: 09-10-2022 End: 09-10-2022 ambulatory Kay Gillette Other [facility] Other Start: 09-10-2022 Office outpatient vi sit 15 minutes Kaytera Gillette [facility] Start: 06-14-2022 End: 06-14-2022 ambulatory Kay Gillette Other [facility] Other Start: 06-14-2022 Office outpatient vi sit 15 minutes Kay Leta [facility] Start: 01-05-2022 End: 01-06-[address] [facility] Facility: Start: 06-13-2021 End: 06-13-2021 ambulatory Adriana Martin Other [facility] Other Start: 06-13-2021 Office outpatient vi sit 15 minutes Adriana Tetenty [facility] Start: 04-26-2021 Office outpatient vi sit 15 minutes Kay Leta [facility] Start: 10-29-2020 End: 10-29-2020 Patient encounter procedure Verito Wilkerson Work Phone: [facility] Start: 10-29-2020 Results Only Verito hua Work [...] Activity Detail Author Start: 03-25-2024 Influenza vaccination [facility] Start: 01-10-2024 Patient referral [facility] Work Phone: Start: 01-06-2024 [facility] Start: 12-09-2023 End: 12-09-2023 ambulatory 12/09/2023 3:00 PM EDT [facility] Neurology [address] [id number] Hussein Browne MD [address] [place], [place] [id number] Generalized weakness [R53.1]; Generalized pain [R52]; Gait instability [R26.81]; Generalized abdominal pain Neurology Comment on above: Generalized weakness [R53.1]; Generalize d pain [R52]; Gait instability [R26.81]; Generalized abdominal pain Start: 12-09-2023 End: 03-09-2024 Cobalamin (Vitamin B12) [Mass/volume] in Serum or Plasma VITAMIN B12 Lab Routine Expected: 12/09/2023, Expires: 03/09/2024 [facility] Comment on above: Expected: 12/09/2023, Expires: Start: 12-09-2023 End: 03-09-2024 Creatine kinase [Enzymatic activity/volume] in Serum or Plasma CREATINE KINASE/CK Lab Routine Expected: 12/09/2023, Expires: 03/09/2024 [facility] Work Phone: Comment on above: Expected: 12/09/2023, Expires: Start: 11-23-2023 End: 11-15-2024 Corticotropin [Mass/volume] in Plasma ACTH BLD Lab Routine Hypophysitis ([facility]) Expected: 11/23/2023 (Approximate), Expires: 11/15/2024 [facility] Comment on above: Expected: 11/23/2023 (Approximate), Expi res: 11/15/2024 Start: 11-23-2023 End: 11-15-2024 Cortisol [Mass/volume] in Serum or Plasma CORTISOL, SERUM Lab Routine Hypophysitis ([facility]) Expected: 11/23/2023 (Approximate), Expires: 11/15/2024 [facility] Comment on above: Expected: 11/23/2023 (Approximate), Expi res: 11/15/2024 Start: 11-23-2023 End: 02-22-2024 Dehydroepiandrosterone (DHEA) [Mass/volume] in Serum or Plasma DHEA BLOOD Lab Routine Hypophysitis ([facility]) Expected: 11/23/2023 (Approximate), Expires: 02/22/2024 [facility] Comment on above: Expected: 11/23/2023 (Approximate), Expi res: 02/22/2024 Start: 11-23-2023 End: 11-15-2024 Estradiol (E2) [Mass/volume] in Serum or Plasma ESTRADIOL-17B BLD Lab Routine Hypophysitis ([facility]) Expected: 11/23/2023 (Approximate), Expires: 11/15/2024 [facility] [employer] Work Phone: Comment on above: Expected: 11/23/2023 (Approximate), Expi res: 11/15/2024 Start: 11-23-2023 End: 11-15-2024 Follitropin [Units/volume] in Serum or Plasma FOLLICLE STIMULATING HORMONE Lab Routine Hypophysitis ([facility]) Expected: 11/23/2023 (Approximate), Expires: 11/15/2024 [facility] Comment on above: Expected: 11/23/2023 (Approximate), Expi res: 11/15/2024 Start: 11-23-2023 End: 11-15-2024 INSULIN LIK GR FAC I INSULIN LIK GR FAC I Lab Routine Hypophysitis ([facility]) Expected: 11/23/2023 (Approximate), Expires: 11/15/2024 [facility] Comment on above: Expected: 11/23/2023 (Approximate), Expi res: 11/15/2024 Start: 11-23-2023 End: 11-15-2024 Lutropin [Units/volume] in Serum or Plasma LUTEINIZING HORMONE Lab Routine Hypophysitis ([facility]) Expected: 11/23/2023 (Approximate), Expires: 11/15/2024 [facility] Comment on above: Expected: 11/23/2023 (Approximate), Expi res: 11/15/2024 Start: 11-23-2023 End: 11-15-2024 Progesterone [Mass/volume] in Serum or Plasma PROGESTERONE Lab Routine Hypophysitis ([facility]) Expected: 11/23/2023 (Approximate), Expires: 11/15/2024 [facility] Comment on above: Expected: 11/23/2023 (Approximate), Expi res: 11/15/2024 Start: 11-23-2023 End: 11-15-2024 Prolactin [Mass/volume] in Serum or Plasma PROLACTIN Lab Routine Hypophysitis ([facility]) Expected: 11/23/2023 (Approximate), Expires: 11/15/2024 [facility] Comment on above: Expected: 11/23/2023 (Approximate), Expi res: 11/15/2024 Start: 11-23-2023 End: 11-15-2024 Somatostatin [Mass/volume] in Plasma GROWTH HORMONE Lab Routine Hypophysitis ([facility]) Expected: 11/23/2023 (Approximate), Expires: 11/15/2024 [facility] Comment on above: Expected: 11/23/2023 (Approximate), Expi res: 11/15/2024 Start: 11-23-2023 End: 11-15-2024 T4/FTI/T4U T4/FTI/T4U Lab Routine Hypophysitis ([facility]) Expected: 11/23/2023 (Approximate), Expires: 11/15/2024 [facility] Comment on above: Expected: 11/23/2023 (Approximate), Expi res: 11/15/2024 Start: 11-23-2023 End: 11-15-2024 Thyrotropin [Units/volume] in Serum or Plasma THYROID STIMULATING HORMONE Lab Routine Hypophysitis (HCC) Expected: 11/23/2023 (Approximate), Expires: 11/15/2024 [facility] Comment on above: Expected: 11/23/2023 (Approximate), Expi res: 11/15/2024 Start: 11-23-2023 End: 11-15-2024 Thyroxine (T4) free [Mass/volume] in Serum or Plasma T4 FREE/FREE THYROXINE Lab Routine Hypophysitis (HCC) Expected: 11/23/2023 (Approximate), Expires: 11/15/2024 [facility] Comment on above: Expected: 11/23/2023 (Approximate), Expi res: 11/15/2024 Start: 11-23-2023 End: 11-23-2023 Patient encounter procedure 11/23/2023 12:40 PM EDT Appointment Radiology MRI [address] [place] [address] Abnormal brain MRI [R90.89]; Pituitary adenoma (HCC) [D35.2]; Elevated prolactin level [R79.89]; Pituitary disorder (HCC) [E23.7] Radiology MRI Comment on above: Abnormal brain MRI [R90.89]; Pituitary a denoma (HCC) [D35.2]; Elevated prolactin level [R79.89]; Pituitary disorder (HCC) [E23.7] Start: 11-18-2023 End: 11-18-2023 Patient encounter procedure 11/18/2023 9:00 AM EDT Office Visit Endocrinology [address] [place] [address] Monserrat North MD [address] [place], [place] [id number] Pituitary Disease; pit panel ordered and pt aware Endocrinology Comment on above: Pituitary Disease; pit panel ordered and pt aware Start: 10-10-2023 Patient referral [facility] Work Phone: Start: 07-25-2023 Behavioral Health Screening Behavioral Health Screening [facility] Start: 03-25-2023 Covid-19 Vaccine () Covid-19 Vaccine () [facility] Start: 03-25-2023 Covid-19 Vaccine ( season) Covid-19 Vaccine ( season) [facility] Start: 01-15-2023 Bacteria identified in Urine by Culture [facility] Start: 2020 PAP TESTING PAP TESTING [facility] Start: 2020 Screening for malignant neoplasm of cervix [facility] Start: 03-25-2020 Influenza vaccination INFLUENZA (#1) [facility] Start: 2018 Hepatitis B Vaccine (1 of 3 - 19+ 3-dose series) Hepatitis B Vaccine (1 of 3 - 19+ 3-dose series) [facility] Start: 2018 Urine microalbumin profile [place] [facility] Start: 2017 Anxiety Screening Anxiety Screening [facility] Start: 2017 CHLAMYDIA SCREENING (18-24) CHLAMYDIA SCREENING (18-24) [facility] Start: 2017 Depression Screening Depression Screening [facility] Start: 2017 GC (GONORRHEA) SCREENING (18-24) GC (GONORRHEA) SCREENING (18-24) [facility] Start: 2017 HEPATITIS C SCREENING HEPATITIS C SCREENING [facility] Start: 2017 Hepatitis C screening Hepatitis C Screening [facility] Start: 2017 HIV SCREENING HIV SCREENING [facility] Start: 2017 HIV screening HIV Screening [facility] Start: 2015 Meningococcal B Vaccine: Consider Based On Risk (1 of 2 - Patient Seeks Protection) Meningococcal B Vaccine: Consider Based On Risk (1 of 2 - Patient Seeks Protection) [facility] Start: 2014 HPV Vaccine (1 - 3-dose series) HPV Vaccine (1 - 3-dose series) [facility] Start: 2013 Peds To Adult Transition Annual Assessment Peds To Adult Transition Annual Assessment [facility] Start: 2011 Adult depression screening assessment DEPRESSION SCREENING [facility] Start: 2011 Peds To Adult Transition Initial Discussion Peds To Adult Transition Initial Discussion [facility] Start: 2010 HPV VACCINE (1 - 2-dose series) HPV VACCINE (1 - 2-dose series) [facility] Start: 2010 Urine microalbumin profile DTaP,Tdap,Td Vaccine (6 - Tdap) [facility] Cefuroxime free [Mas s/volume] in Serum or Plasma [facility] Fluoroscopy of upper gastrointestinal tract [facility] Patient referral [facility] Work Phone: PT ED PATIENT INFORMATION PT ED PATIENT INFORMATION Other 10/29/2020 [facility] US Heart [facility] Immunizations Immunization Date Immunization Notes Care Provider Fa cilibry 04-06-2017 meningococcal oligosaccharide (groups A, C, Y and W-135) diphtheria toxoid conjugate vaccine (MCV4O) [employer] Other [facility] Payers Date Payer Category Payer Private Health Insurance [id number] 2023 Self-pay [id number] 2023 Unknown ANTHEM BLUE ACCE SS PPO [id number] 2023-Present [phone] [address] [place] [address] PPO [id number] 2023 Blue Cross Blue Shield [id number] 2016 Unknown [employer]THEM BLUE CARD PPO [id number] 2016-Present PPO [id number] 1999 Unknown [id number] 2.16.840.1.116061.3.579.2 .593 1999 Unknown [id number] 2.16.840.1.493503.3.579.2 .593 1999 Unknown [id number] 2.16.840.1.245474.3.579.2 .1259 1999 Unknown [id number] 2.16.840.1.517082.3.579.2 .1259 1999 Unknown [id number] 2.16.840.1.656569.3.579.2 .1259 1999 Unknown [id number] 2.16.840.1.943351.3.579.2 .1259 1999 Unknown [id number] 2.16.840.1.153278.3.579.2 .1259 1999 Unknown [id number] 2.16.840.1.452034.3.579.2 .1259 1999 Unknown [id number] 2.16.840.1.632351.3.579.2 .1259 1999 Unknown [id number] 2.16.840.1.390081.3.579.2 .1259 1999 Unknown [id number] 2.840.1.426565.3.579.2 .1259 1999 Unknown [id number] 2.16840.1.178018.3.579.2 .1259 1999 Unknown [id number] 2.16.840.1.570298.3.579.2 .1259 1999 Unknown [id number] 2.16840.1.405966.3.579.2 .9 1999 Unknown [id number] 2.840.1.278861.3.579.2 .1259 1999 Unknown [id number] 2.16840.1.872143.3.579.2 .1259 1999 Unknown [id number] 2.16.840.1.683653.3.579.2 .1259 1959 Rust [id number] Private Health Insurance [facility] [id number] Unknown [id number] Unknown [id number] 2.16.840.1.983251.3.579.2 .531 Unknown [id number] 2.16.840.1.784291.3.579.2 .531 Unknown [id number] 2.16.840.1.107973.3.579.2 .531 Unknown [id number] 2.16.840.1.046291.3.579.2 .531 Unknown [id number] 2.16.840.1.951306.3.579.2 .531 Social History Date Type Detail Facility Tobacco smoking status LAIS Unknown if ever smoked [facility] Start: 1999 Sex Assigned At Not on file [facility] Start: 11-28-2020 End: 11-18-2023 Sex Assigned At [facility] Start: 1999 Sex Assigned At Female F [facility] Start: 06-08-2017 End: 11-18-2023 Tobacco smoking status [facility] Never smoked tobacco (finding) [facility] Start: 10-21-2023 End: 04-12-2024 Tobacco smoking status LAIS Smoker (finding) [facility] Tobacco smoking status [facility] Tobacco smoking consumption unknown [facility] Start: 11-28-2020 End: 11-18-2023 History of Social function [facility] National Score (1-100), lower number is lower risk Not on file [facility] Start: 11-18-2023 Tobacco use and exposure Smokeless tobacco non-user [facility] Start: 11-18-2023 Alcohol intake Current drinke r of alcohol (finding) [facility] Start: 11-18-2023 Alcohol Comment [facility] Clinical Notes 04-26-2021 to 03-01-2024 Telephone Encounter - Andria Cardona MA - 03/01/2024 11:54 AM EDTTelephone Encounter - Andria Cardona MA - 03/01/2024 11:54 AM EDT Note Date & Type Note Facility 03-01-2024 Telephone encounter Note Form atting of this note might be different from the original. Left voice mail to call office regarding ins. Information for Ubrelvy 50 mg. Cover my meds states she has no coverage under insurance. Need updated insurance information to submit prior auth [facility] 03-01-2024 Miscellaneous Notes Formattin g of this note might be different from the original. Left voice mail to call office regarding ins. Information for Ubrelvy 50 mg. Cover my meds states she has no coverage under insurance. Need updated insurance information to submit prior auth documented in this encounter [facility] 02-15-2024 Evaluation note Authored February 15, 2024 1:55pm Patient remains positive for intermittent dysphagia/esophageal spasm, patient dyspepsia also improved but intermittently present. Patient has noted some improvement with MiraLAX dosing however patient does require stronger medication patient given prescription for Trulance once daily. Patient positive for occasional abdominal pain [facility] Work Phone: 1(921) 602-634506-18-2024 Hospital Discharge instructionsAmbulatory Orders* Referral to Rheumatology Time Frame: 01/10/24, Location: None Selected [facility] Work Phone: 1(479) 303-620405-20-2024 Telephone encounter Note* Telephone Encounter - Andria Cardona MA - 12/12/2023 1:17 PM EDT Left vm to call office with current RX insurance information for Ubrelvy 50mg . Prior auth is needed for medication [facility]05-20-2024 Miscellaneous Notes* Telephone Encounter - Andria Cardona MA - 12/12/2023 1:17 PM EDT Left vm to call office with current RX insurance information for Ubrelvy 50mg . Prior auth is needed for medication documented [facility] Telephone encounter Note * Telephone Encounter - Lawrence Kinsey RN - 12/12/2023 11:06 AM EDT [facility] CHRISTIAN Galarza left message on nurse line for provider today with medication question regarding recent prescription for Ubrelvy 50 mg. Tablets. You sent over a prescription for 16 tablets but the medication comes in a box of 10 and we do not split boxes. I was wondering if you could change the quantity to a value of 10. 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 They have started prior authorization and will see what insurance companies authorizes. She stated it is a preference of their pharmacy to not split boxes but they will wait to see what insurance companies recommends. Will call back with any questions or concerns. [facility]05-20-2024 Miscellaneous Notes* Telephone Encounter - Lawrence Kinsey RN - 12/12/2023 11:06 AM EDT Kandice Garcia[facility] CHRISTIAN Galarza left message on nurse line for provider today with medication question regarding recent prescription for Ubrelvy 50 mg. Tablets. You sent over a prescription for 16 tablets but the medication comes in a box of 10 and we do not split boxes. I was wondering if you could change the quantity to a value of 10. 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 They have started prior authorization and will see what insurance companies authorizes. She stated it is a preference of their pharmacy to not split boxes but they will wait to see what insurance companies recommends. Will call back with any questions or concerns. documented in this encounterThe [facility]-2024 NoteHNO ID: [id number] Author: HUSSEIN BROWNE MD Service: ? Author Type: Physician Type: Progress Notes Filed: 01/04/2024 23:19 Note Text: VIRTUAL VISIT PROGRESS NOTE This is a virtual visit using [employer] Video Visit. It required patient-provider interaction for the medical decision making as documented below. I have communicated my name and active licensure. The patient's identity and physical location were verified at the time of this visit. 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 I spent a total of 60 minutes on the date of the service which included preparing to see the patient, [id number] patient care, counseling and educating the patient/family/caregiver, [...] Apnea Probability Score: 3 (Sleep study not recommended)[facility]05-17-2024 History of Present illness Narrative* Hussein Browne MD - 12/09/2023 2:52 PM EDT VIRTUAL VISIT PROGRESS NOTE This is a virtual visit using [employer] Video Visit. It required patient- provider interaction for the medical decision making as documented below. I have communicated my name and active licensure. The patient's identity and physical location wereverified at the time of this visit. Either the patient or their legal human resources hr representative has been informed of the risks and benefits of -- and alternatives to -- treatment through a remote evaluation andconsents to proceed with the evaluation remotely. 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 I spent a total of 60 minutes on the date of the service which included preparing to see the patient, [id number] patient care, counseling and educating the patient/family/caregiver, and ordering medications, tests, or procedures Hussein rBowne MD 12/07/2023 PROMIS [employer] Physical Health [...] (Sleep study not recommended) documented [facility] History of Present illness Narrative* Evelyn Zamora RN - 11/23/2023 12:40 PM EDT Radiology Service Progress Note DATE OF SERVICE: [...] Left antecubital site with a Angio cath: 22gauge. and A Saline lock was inserted per protocol IV SITE APPEARANCE: Clean,Dry and Intact SIGNATURE: Evelyn Zamora RN PATIENT NAME: Charly Foster DATE: November 23, 2023 TIME: 12:41 PM * Mohan Thomas RT(R) - 11/23/2023 12:40 PM EDT Radiology Service Progress Note PATIENT NAME: Charly Foster DATE OF SERVICE: November 23, 2023 TIME: 12:56 PM PATIENT IDENTITY VERIFICATION COMPLETED USING TWO (2) IDENTIFIERS: Name and Date of confirmedby patient verbally and Name and Date of confirmed by identification band FALL SCREENING: Has the patient had 2 falls in the last year or 1 fall with injury or currently using an Ambulatory Assistive Device (Walker, Cane, Wheelchair, Crutches, etc.)? No PATIENT GENDER DATA: Female. status: : No status: N/A PATIENT RELEVANT IMPLANT DATA REVIEWED: Yes PATIENT PRESENTS WITH AN IMPLANTABLE OR ATTACHED ELECTROLYSIS NEEDLE OPERATOR: No RADIOLOGY DEPARTMENT: MR; Exam(s) Completed: Head: Pituitary PERIPHERAL IV DATA: Site assessment: Clean,Dry and Intact, Site disposition Discontinued SIGNED BY: RT Anu(Nahun) November 23, 2023 12:56 PM documented in this encounterThe [facility]-01-2024 NoteHNO ID: [id number] Author: EVELYN ZAMORA RN Service: Nursing Author [...] Foster DATE: November 23, 2023 TIME: 12:41 [facility]05-01-2024 NoteHNO ID: [id number] Author: MOHAN THOMAS RT(R) Service: Radiology Author [...] PATIENT PRESENTS WITH AN IMPLANTABLE OR ATTACHED ELECTROLYSIS NEEDLE OPERATOR: No RADIOLOGY DEPARTMENT: MR; Exam(s) Completed: Head: Pituitary PERIPHERAL IV DATA: Site assessment: Clean,Dry and Intact, Site disposition Discontinued SIGNED BY: RT Anu(R) November 23, 2023 12:56 [facility]04-29-2024 Telephone encounter Note* Telephone Encounter - Key Moore - 11/21/2023 6:13 PM EDT Updated clinical notes from [facility] Date collected 10/19/23 Date scanned in chart 11/21/23 Key Meneses [employer] II [facility] F-20 [facility]04-29-2024 Miscellaneous Notes* Telephone Encounter - Meneses Lelo Rodriguemary - 11/21/2023 6:13 PM EDT Updated clinical notes from [facility] Date collected 10/19/23 Date scanned in chart 11/21/23 Rodriguemary Meneses [employer] Mer[employer] II [facility] F-20 documented in this encounterThe [facility]04-26-2024 Instructions* Patient Instructions* Monserrat North MD - 11/18/2023 10:17 AM EDT Please obtain a dedicated Pituitary MRI. Consult to IM and internal medicine to address other symptoms. Monserrat North MD., F.A.C.E. documented in this encounterThe [facility]04-26-2024 Nurse Note* Tatiana Farris MA - 11/18/2023 9:00 AM EDT Additional intake questions: Has the patient had fever, nausea, vomiting, diarrhea, constipation, fatigue for > 1 week? Yes, nausea, fatigue, and Provider Notified Does the patient have a decreased appetite? Yes Does patient want to see a Chef Concierge? No (yes to any of above refer patient to schedulers for dietitian appointment) ) Does patient have any new or increased numbness or tingling of extremities? Yes, numbness in both hands. Is patient interested in fertility information? No Does patient need any prescription refills? No Does patient have an advanced directive in place? No, Patient referred to [facility]04-26-2024 History of Present illness Narrative* Monserrat North MD - 11/18/2023 9:00 AM EDT Images from the original note were not [...] abdomen:No,difficulty raising arms overhead, difficulty getting up froma seated position:No Previous Pituitary Surgery: No Previous [...] evidenced by a pituitary height of more than9 mm may be observed during puberty, , young woman and after menopause. The IGF-I is elevated but I do not believe this represents pathology given that the gold hormone islow. PLAN: Please obtain a dedicated Pituitary MRI. Consult to IM and internal medicine to address other symptoms. All the patient`s questions were answered. The patient expressed understanding of all the information relayed and has agreed to this plan. I spent a total of 60 minutes on the date of the service which included preparing to see the patient, [id number] patient care, completing clinical documentation, obtaining and/or reviewing separately obtained history, performing a medically appropriate examination, counseling and educating the pat ient/family/caregiver, ordering medications, tests, or procedures, communicating with other HCPs (not separately reported), independently interpreting results (not separately reported), communicatingresults to the patient/family/caregiver and care coordination (not separately reported). SIGNATURE: Monserrat North MD DATE of SERVICE: November 18, 2023 TIME of SERVICE: 6:07 AM documented in this encounterThe [facility]04-26-2024 NoteHNO ID: [id number] Author: MONSERRAT NORTH MD Service: ? Author [...] J - 10/27/2023 ASSESSMENT/P (more content not included)...[facility]04-26-2024 Nurse Note* Tatiana Farris MA - 11/18/2023 9:00 AM EDT Additional intake questions: Has the patient had fever, nausea, vomiting, diarrhea, constipation, fatigue for > 1 week? Yes, nausea, fatigue, and Provider Notified Does the patient have a decreased appetite? Yes Does patient want to see a Chef Concierge? No (yes to any of above refer patient to schedulers for dietitian appointment) ) Does patient have any new or increased numbness or tingling of extremities? Yes, numbness in both hands. Is patient interested in fertility information? No Does patient need any prescription refills? No Does patient have an advanced directive in place? No, [facility] documented in [facility]24 Telephone encounter Note * Telephone Encounter - Gil Reyes RN - 11/16/2023 9:22 AM EDT Call placed to Charly Foster. Discussed appointment on Tuesday with Dr. North. She tells me she was referred due to abnormal MRI findings. [facility] She has not had pituitary lab work completed. Explained lab work will help have a more productive appointment. I will place orders and she can have them completed at any [facility] lab prior to 9 am. She is going to try to have them completed tomorrow morning. Instructed to refrain from sexual activity or nipple stimulation 12 hours prior to obtaining labs. Understands not to take any steroids the morning of lab work. All questions answered at this time. Gil Reyes RN Cover Machine Operator November 16, 2023 [facility]04-24-2024 Miscellaneous Notes* Telephone Encounter - Gil Reyes RN - 11/16/2023 9:22 AM EDT Call placed to Charly Foster. Discussed appointment on Tuesday with Dr. North. She tells me she was referred due to abnormal MRI findings. [facility]. She has not had pituitary lab work completed. Explained lab work will help have a more productive appointment. I will place orders and she can have them completed at any [facility] lab prior to 9 am. She is going to try to have them completed tomorrow morning. Instructed to refrain from sexual activity or nipple stimulation 12 hours prior to obtaining labs. Understands not to take any steroids the morning of lab work. All questions answered at this time. Gil Reyes RN Cover Machine Operator November 16, 2023 documented in this encounterThe [facility]12-12-2023 Evaluation note* Encounter Date Diagnosis Assessment Notes Treatment Notes Treatment Clinical Notes Jun, Acute sinusitis, recurrence not specified, [...] Suspected COVID-19 virus infection (ICD-10 - Z20.822) [facility] Other 12-01-2023 Evaluation note* Encounter Date Diagnosis [...] aware. Advised follow above treatment plan recommendations [facility] Other 10-19-2023 Evaluation note* Encounter Date Diagnosis Assessment Notes Treatment Notes Treatment Clinical Notes Apr, Acute non-recurrent maxillary sinusitis (ICD-10 - J01.00) Take medication as prescribed. Humidification, saline nose spray, Neti pot suggested for sinus relief. OTC acetaminophen/ibup rofen for pain. May continue OTC decongestants/anti histamines. [facility] Other 06-24-2023 Evaluation note* Encounter Date Diagnosis [...] no improvement in 2 to 3 days. [facility] Other 02-23-2023 Evaluation note* Encounter Date Diagnosis [...] even if you start to feel better. [facility] Other 02-17-2023 Evaluation note* Encounter Date Diagnosis [...] of diseases classified elsewhere (ICD-10 - B96.89) [facility] Other 11-21-2022 Evaluation note* Encounter Date Diagnosis [...] of diseases classified elsewhere (ICD-10 - B96.89) [facility] Other 06-14-2022 NotePROCEDURE: XR ANKLE LT MIN [...] Electronically authenticated by: GREGORY KLEIN Date: 2022-01-05 16:37[facility]06-14-2022 NotePROCEDURE: XR ANKLE LT MIN 3 [...] Electronically authenticated by: GREGORY KLEIN Date: 2022-01-05 16:37[facility]11-20-2021 Evaluation note* Encounter Date Diagnosis Assessment [...] Patient care instructions given in writting by [facility] document [facility] Other 10-03-2021 Evaluation note* Encounter Date Diagnosis [...] Patient care instructions given in writting by [facility] document. [facility] Other Evaluation noteNo assessment information available [facility] Work Phone: Evaluation noteNo InformationNort Appiterate Other Evaluation note* Diagnosis Onset Date Resolution Status Fatigue acute Mitral valve disorder acute Nausea & vomiting acute [facility] Work Phone: Evaluation note* Diagnosis Onset Date Resolution Status Chronic constipation acute Fatigue acute Migraine acute Mitral valve disorder acute Nausea & vomiting acute Staring episodes acute Constipation acute Nausea acute Dyspepsia noneactive Celiac disease noneactive [facility] Work Phone: Evaluation note* Diagnosis 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 [facility] Diagnosis Abnormal brain MRI Nonspecific (abnormal) findings on radiological and other examination of skull and head Pituitary adenoma (HCC) Benign neoplasm of pituitary gland and craniopharyngeal duct (pouch) Elevated prolactin level Unspecified endocrine disorder Pituitary disorder (HCC) Unspecified disorder of the pituitary gland and its hypothalamic control [facility]* Diagnosis Abnormal brain MRI- Primary Nonspecific [...] its hypothalamic control [facility]* Diagnosis Generalized weakness- Primary Other malaise and fatigue Generalized pain Gait instability Abnormality of gait Generalized abdominal pain Abdominal pain, generalized Intractable migraine with aura without status migrainosus Migraine with aura, with intractable migraine, so stated, without mention of status migrainosus [facility] this [facility]* Diagnosis Onset Date Resolution Status Chronic constipation acute Fatigue acute Migraine acute Mitral valve disorder acute Nausea & vomiting acute Staring episodes acute Dyspepsia noneactive Celiac disease noneactive Chronic constipation acute Migraine acute Mitral valve disorder acute Staring episodes acute Mitral valve disorder acute Palpitations acute [facility] Work Phone: Evaluation note* Diagnosis Onset Date Resolution Status Dyspepsia noneactive Celiac disease noneactive Chronic constipation acute Migraine acute Mitral valve disorder acute Staring episodes acute Mitral valve disorder acute Palpitations acute [facility] Work Phone: Evaluation note* Diagnosis Onset Date Resolution Status Chronic constipation acute Migraine acute Mitral valve disorder acute Staring episodes acute Mitral valve disorder acute Palpitations acute [facility] Work Phone: [facility] [facility] Narrative - Reported* Type Description Date Medical History concaved chest Medical History acne Medical History Mitral valve prolapse Medical History anxiety Medical History chronic depression Medical History migraine headache Medical History auto immune disorder unsure of n kosta Surgical History laparoscopy Hospitalization History see above alive.cn Other history general Narrative - Reported* Type Description Date Medical History concaved chest Medical History acne Medical History Mitral valve prolapse Medical History anxiety Medical History chronic depression Medical History migraine headache Medical History urticaria Surgical History laparoscopy Hospitalization History see above alive.cn Other history general Narrative - Reported* Type Description Date Medical History concaved chest Medical History acne Medical History Mitral valve prolapse Medical History anxiety Medical History chronic depression Medical History migraine headache Medical History urticaria Surgical History laparoscopy Surgical History repair ankle tendon Hospitalization History see above alive.cn Other history general Narrative - Reported* Type Description Date Medical History concaved chest Medical History acne Medical History Mitral valve prolapse Medical History anxiety Medical History chronic depression Medical History migraine headache Medical History urticaria Medical History PCOS Surgical History laparoscopy Surgical History repair ankle tendon Hospitalization History see above alive.cn Other Summary Purpose Family History No Family History Records Found Relationship Condition Age at Onset Recorded Date/T madeline father Crohn's disease Unknown Relationship Condition Age at Onset Recorded Date/T madeline father Crohn's disease Unknown Not Specified Gastroesophageal reflux disease Unknown Anxiety Unknown Relationship Condition Age at Onset Recorded Date/T madeline father Crohn's disease Unknown mother Gastroesophageal reflux disease Unknown Anxiety Unknown Advance [...] BROTHERS CONSTIPATION, NAUSEA & VOMITING r27.0 r11.0 [facility] f/u, pain Reason for Visit Chronic constipation Fatigue Migraine Mitral valve disorder Nausea & vomiting Staring episodes Constipation Nausea Dyspepsia Celiac disease Chief Complaint Check up REF BY DR. BROTHERS CONSTIPATION, NAUSEA & VOMITING r27.0 r11.0 [facility] f/u, pain Rheumatic Mitral Valve Disease Reason for Visit Chronic constipation Fatigue Migraine Mitral valve disorder Nausea & vomiting Staring episodes Dyspepsia Celiac disease Chronic constipation Migraine Mitral valve disorder Staring episodes Mitral valve disorder Palpitations Chief Complaint REF BY DR. BROTHERS CON STIPATION, NAUSEA & VOMITING r27.0 r11.0 [facility] f/u, pain Rheumatic Mitral Valve Disease Reason for Visit Dyspepsia Celiac disease Chronic constipation Migraine Mitral valve disorder Staring episodes Mitral valve disorder Palpitations Chief Complaint [facility] f/u , pain Rheumatic Mitral Valve Disease 3 month f/u Reason for Visit Chronic constipation Migraine Mitral valve disorder Staring episodes Mitral valve disorder Palpitations Chief Complaint Rheumatic Mitral Mahogany ve Disease 3 month f/u r00.2 Reason for Visit Mitral valve disorde r Palpitations GERD (gastroesophageal reflux disease) Irritable bowel syndrome with constipation Chief Complaint 3 month f/u r00.2 8 Weeks Reason for Visit GERD (gastroesophage al reflux disease) Irritable bowel syndrome with constipation Fibromyalgia GERD (gastroesophageal reflux disease) Irritable bowel syndrome with constipation Mitral valve disorder Myalgia Palpitations Reason for Referral Specialty Diagnoses / Procedures Referred By Contac t Referred To Contact Hussein Browne MD [address] [place] [address] Referral ID Status Reason Start Date Expiration Date Visits Re quested Visits Authorized [id number] Closed 1 1 Specialty Diagnoses / Procedures Referred By Contac t Referred To Contact Neurology Diagnoses Generalized weakness Generalized pain Gait instability Generalized abdominal pain Procedures CONSULT TO NEUROLOGY OFFICE/OUTPATIENT [facility] 60 MINUTES Monserrat North MD [address] [place] [address] Referral ID Status Reason Start Date Expiration Date V isits Requested Visits Authorized [id number] Closed PCP Requested Referral 11/18/2023 11/17/2024 1 1 Specialty Diagnoses / Procedures Referred By Contac t Referred To Contact INTERNAL MEDICINE Diagnoses Generalized weakness Generalized pain Gait instability Generalized abdominal pain Procedures ESTABLISH WITH PRIMARY CARE NEW PATIENT OFFICE/OUTPATIENT [facility] 60 MINUTES Monserrat North MD [facility] [place] [address] [place] [address] Referral ID Status Reason Start Date Expiration Date Visits Requested Visits Authorized [id number] Authorized PCP Requested Referral 11/18/2023 11/17/2024 1 1 Specialty Diagnoses / Procedures Referred By Contac t Referred To Contact MR IMAGING Diagnoses Abnormal brain MRI Pituitary adenoma (HCC) Elevated prolactin level Pituitary disorder (HCC) Procedures MRI PITUITARY WO/W IVCON MRI BRAIN BRAIN STEM W/O W/CONTRAST MATERIAL Monserrat North MD [address] [place] [address] [facility] [place] [address] Referral ID Status Reason Start Date Expiration Date V isits Requested Visits Authorized [id number] Closed Auto-Generate d Referral 11/18/2023 12/17/2024 1 1 Specialty Diagnoses / Procedures Referred By Contac t Referred To Contact MR IMAGING Diagnoses Abnormal brain MRI Pituitary adenoma (HCC) Elevated prolactin level Pituitary disorder (HCC) Procedures MRI PITUITARY WO/W IVCON MRI BRAIN BRAIN STEM W/O W/CONTRAST MATERIAL Monserrat North MD [address] [place] [address] [place] [address] Referral ID Status Reason Start Date Expiration Date V isits Requested Visits Authorized [id number] Closed Auto-Generate d Referral 11/18/2023 12/17/2024 1 1 Additional Source Comments Source Comments (unrecognize d section and content) In the event this informatio n is protected by the Federal Confidentiality of Alcohol and Drug Abuse Patient Records regulations: The Federal rules restrict any use of the information to criminally investigate or prosecute any alcohol or drug abuse patient.[facility] the event this information is protected by the Federal Confidentiality of Alcohol and Drug Abuse Patient Records regulations: The Federal rules restrict any use of the information to criminally investigate or prosecute any alcohol or drug abuse patient.[facility] the event this information is protected by the Federal Confidentiality of Alcohol and Drug Abuse Patient Records regulations: The Federal rules restrict any use of the information to criminally investigate or prosecute any alcohol or drug abuse patient.[facility] the event this information is protected by the Federal Confidentiality of Alcohol and Drug Abuse Patient Records regulations: The Federal rules restrict any use of the information to criminally investigate or prosecute any alcohol or drug abuse patient.[facility] the event this information is protected by the Federal Confidentiality of Alcohol and Drug Abuse Patient Records regulations: The Federal rules restrict any use of the information to criminally investigate or prosecute any alcohol or drug abuse patient.[facility] the event this information is protected by the Federal Confidentiality of Alcohol and Drug Abuse Patient Records regulations: The Federal rules restrict any use of the information to criminally investigate or prosecute any alcohol or drug abuse patient.[facility] the event this information is protected by the Federal Confidentiality of Alcohol and Drug Abuse Patient Records regulations: The Federal rules restrict any use of the information to criminally investigate or prosecute any alcohol or drug abuse patient.[facility] the event this information is protected by the Federal Confidentiality of Alcohol and Drug Abuse Patient Records regulations: The Federal rules restrict any use of the information to criminally investigate or prosecute any alcohol or drug abuse patient.[facility] the event this information is protected by the Federal Confidentiality of Alcohol and Drug Abuse Patient Records regulations: The Federal rules restrict any use of the information to criminally investigate or prosecute any alcohol or drug abuse patient.[facility] INFORMATION SOURCE (unrecogn ized section and content) DATE CREATED AUTHOR 08/21/2021 [facility] DATE CREATED AUTHOR AUTHOR'S ORGANIZ ATION 12/06/2022 [facility] DATE CREATED AUTHOR AUTHOR'S ORGANIZ ATION 03/04/2024 [facility] DATE CREATED AUTHOR AUTHOR'S ORGANIZ ATION 04/04/2024 [facility] DATE CREATED AUTHOR AUTHOR'S ORGANIZ ATION 04/12/2024 [facility] EPIC REASON FOR VISIT (unrecogniz ed section and content) Reason Comments Cover Machine Operator - Other Reason Comments Received Outside Medical Records Reason Comments Radiology MRI Specialty Diagnoses / Procedures Referred By Contac t Referred To Contact MR IMAGING Diagnoses Abnormal brain MRI Pituitary adenoma (HCC) Elevated prolactin level Pituitary disorder (HCC) Procedures MRI PITUITARY WO/W IVCON MRI BRAIN BRAIN STEM W/O W/CONTRAST MATERIAL Monserrat North MD [address] [place] [address] [facility] [place] [address] Referral ID Status Reason Start Date Expiration Date V isits Requested Visits Authorized [id number] Closed Auto-Generate d Referral 11/18/2023 12/17/2024 1 1 Reason Comments Medication Question Reason Comments Patient Question Insurance informatio n for medication Reason Comments New Patient Reason Comments New Patient Evaluation Specialty Diagnoses / Procedures Referred By Contac t Referred To Contact Neurology Diagnoses Generalized weakness Generalized pain Gait instability Generalized abdominal pain Procedures CONSULT TO NEUROLOGY OFFICE/OUTPATIENT [facility] 60 MINUTES Monserrat North MD [address] [place] [id number] Referral ID Status Reason Start Date Expiration Date V isits Requested Visits Authorized [id number] Closed PCP Requested Referral 11/18/2023 11/17/2024 1 1 Reason Comments Insurance Authorization Care Teams (unrecognized sec tion and content) Team Status: Inactive Member Role Status Dates ZARINA RamosC Attending Provider Active Team Status: Active Member [...] 2024 Team Status: Active Member Role Status Carlitos Brothers MD Primary Care Provider Active Start: January 06, 2024 Kya Hoskins MD Attending Provider Active Sta rt: January 06, 2024 Team Status: Active Member Role Status Carlitos Hoskins MD Inspector Government Property Active Monster Brothers MD Primary Care Provider Active Team Status: Active Member Role Status Carlitos Brothers MD Primary Care Provide r, Attending Provider Active Start: January 10, 2024 Team Status: Inactive Member Role Status Carlitos Brothers MD Primary Care Provider Active Start: February 15, 2024 End: February 15, 2024 Reji Bailey APRN Attending Provider Active Start: February 15, 2024 End: February 15, 2024 Pitch Filler Relationship Specialty Start Date End Date Sridevi Pia Eleazar [address] [place] [address] Referring Rheumatology 02/16/24 Team Status: Inactive Member Role Status Carlitos Brothers MD Primary Care Provider Active Start: April 03, 2024 End: April 03, 2024 Kya Hoskins MD Attending Provider Active Sta rt: April 03, 2024 End: April 03, 2024 Team Status: Inactive Member Role Status Carlitos Brothers MD Primary Care Provider Active Start: April 12, 2024 End: April 12, 2024 Kya Hoskins MD Attending Provider Active Sta rt: April 12, 2024 End: April 12, 2024 Goals (unrecognized section and content) Goals may [...] BE BASED ON THE PRIMARY CLINICAL RECORDS. [facility]. provides no warranty or guarantee of the accuracy or completeness of information in this document.
--- NOTE | 2024-04-14 12:55 | US_ITS ---
[address] [address] Patient Name: CHARLY FOSTER MRN: [id number] date: 2000 Sex: F Assigned Patient Location: ER Current Patient Location: ER Accession/Order Number: [id number] Exam Date: 04/14/2024 13:20 Report Date: 04/14/2024 15:19 At the request of: LAQUITA HAYWOOD Procedure: US pelvis transvaginal PROCEDURE: US pelvis transvaginal, 04/14/2024 1:20 PM EDT CLINICAL INDICATIONS: Post coital right lower abdominal pain, personal history of polycystic ovarian syndrome 0 para 0 LMP 524 COMPARISON: 04/13/2023 TECHNIQUE: Transvaginal pelvic sonogram, grayscale color and spectral assessment. FINDINGS: Uterus: 6.7 x 3.6 x 4.4 cm. 0.4 cm nabothian paracervical cyst is seen. Normal uterine sonographic morphology. There is probable arcuate, less likely partial septate morphology of uterus. Focal abnormality is not demonstrated. Right ovary: 4.2 x 1.9 x 2.8 cm volume 12 mL. Peripherally distributed subcentimeter follicle seen. Left ovary: 3.0 x 1.8 x 2.2 cm volume 6 mL. Subcentimeter follicles identified. DUPLEX PELVIC VASCULATURE: There is intact flow within the ovarian tissue bilaterally by color-flow assessment. Arterial spectral tracing is identified from within. Right resistive index 0.62, left 0.58. There is mild to moderate free fluid adjacent to the right ovary an cul-de-sac. US/US pelvis transvaginal IMPRESSION: 1. Nabothian paracervical cysts 2. Possible arcuate morphology of uterus, no focal abnormality 3. Enlarged right ovarian volume, bilateral subcentimeter ovarian follicles. Polycystic ovarian morphology considered in the appropriate clinical setting 4. No sonographic sign of adnexal torsion 5. Mild to moderate pelvic free fluid Electronically authenticated by: PIA MI Date: 04/14/2024 15:19
--- NOTE | 2024-04-14 12:56 | ED_ITS ---
HPI - Abdominal Pain General Chief Complaint: Abdominal Pain Stated Complaint: ABDOMINAL PAIN Time Seen by Provider: 04/14/24 12:38 Source: patient Mode of arrival: walk-in Limitations: no limitations History of Present Illness HPI narrative: 23-year-old female presents for right lower abdominal pain. It started 1 and half hours ago during intercourse. She has had no bleeding. She has not had a fever or preceding pain. No vomiting but she is a bit nauseous. No diarrhea. The pain is moderate and continuous. Related Data Home Medications ?Medication ?Instructions ?Recorded ?Confirmed albuterol sulfate 90 mcg/actuation 2 puff inhalation Q6H PRN 08/08/23 08/08/23 aerosol inhaler shortness of breath or wheezing buspirone 10 mg tablet 10 mg PO BID 08/08/23 08/08/23 Previous Rx's ?Medication ?Instructions ?Recorded hydrocodone 5 mg-acetaminophen 325 1 tab PO Q4H PRN pain #10 tabs 01/02/24 mg tablet prednisone 20 mg tablet 20 mg PO BID 5 days #10 tabs 01/02/24 Allergies Allergy/AdvReac Type Severity Reaction Status Date / Time acetaminophen [From Fioricet] Allergy Severe Verified 08/08/23 20:09 butalbital [From Fioricet] Allergy Severe Verified 08/08/23 20:09 caffeine [From Fioricet] Allergy Severe Verified 08/08/23 20:09 ciprofloxacin [From Cipro] Allergy Severe Verified 08/08/23 20:09 codeine Allergy Severe Verified 08/08/23 20:09 [From Tylenol-Codeine #3] metoclopramide [From Reglan] Allergy Severe Verified 08/08/23 20:09 Review of Systems ROS Narrative A ten point review of systems is negative except as noted above. PFSH PFSH Social History Little interest or pleasure in doing things: not at all Feeling down, depressed, or hopeless: several days Exam Narrative Exam Narrative: Nurses note and vital signs reviewed and patient is not hypoxic. General: The patient appears well and in no apparent distress. Skin: Warm, dry, no pallor noted. There is no rash noted. Head: Normocephalic, atraumatic Eye: Normal conjunctiva, no drainage Ears, Nose, Mouth, and Throat: oral mucosa is moist. Nares patent. Cardiovascular: Regular Rate and Rhythm Respiratory: Patient is in no distress, no accessory muscle use, lungs are clear to auscultation, no wheezing, rales or rhonchi Back: non-tender GI: Tenderness in the right lower abdomen. No masses or distention. Musculoskeletal: The patient has no evidence of calf tenderness, no pitting edema, symmetrical pulses noted bilaterally Neurological: A&O, normal speech Psychiatric: Cooperative Constitutional Vital Signs, click to edit/add: Last Vital Signs Temp 98.8 F 04/14/24 12:34 Pulse 97 H 04/14/24 12:34 Resp 14 04/14/24 12:34 BP 117/80 04/14/24 12:34 Pulse Ox 99 04/14/24 12:34 O2 Del Method Room Air 04/14/24 12:34 Course Vital Signs Vital signs: Vital Signs Temperature 98.8 F 04/14/24 12:34 Pulse Rate 97 H 04/14/24 12:34 Respiratory Rate 14 04/14/24 12:34 Blood Pressure 117/80 04/14/24 12:34 Pulse Oximetry 99 04/14/24 12:34 Oxygen Delivery Method Room Air 04/14/24 12:34 Temperature 98.8 F 04/14/24 12:34 Pulse Rate 97 H 04/14/24 12:34 Respiratory Rate 14 04/14/24 12:34 Blood Pressure 117/80 04/14/24 12:34 Pulse Oximetry 99 04/14/24 12:34 Oxygen Delivery Method Room Air 04/14/24 12:34 MDM - Abdominal Pain MDM Narrative Medical decision making narrative: Ultrasound shows some free fluid in the pelvis. She has history of polycystic ovary and likely has had a ruptured cyst. She is not and the rest of her tests are appropriate. She is able to be discharged home. Treatment diagnosis and follow-up were discussed with the patient. Differential Diagnosis Differential diagnosis: Likely abdominal pain, constipation and pancreatitis (Ovarian torsion, ruptured ovarian cyst) Lab Data Attestation: I reviewed the patient's lab results. Labs: Lab Results 04/14/24 04/14/24 Range/Units 12:50 13:05 WBC 7.3 (4.0-11.0) 10^3/uL RBC 4.60 (4.20-5.40) 10^6/uL Hgb 14.3 (12.0-16.0) g/dL Hct 41.5 (36.0-48.0) % MCV 90.2 (81.0-99.0) fL MCH 31.1 (26.7-34.0) pg MCHC 34.5 (29.9-35.2) g/dL RDW 12.2 (11.0-15.0) % Plt Count 241 (150-450) 10^3/uL MPV 10.0 (9.5-13.5) fL Neut % (Auto) 58.2 (43.0-75.0) % Lymph % (Auto) 29.6 (20.5-60.0) % [place] % (Auto) 9.6 (1.7-12.0) % Eos % (Auto) 1.7 (0.9-7.0) % Baso % (Auto) 0.8 (0.2-2.0) % Neut # (Auto) 4.2 (1.4-6.5) 10^3/uL Lymph # (Auto) 2.2 (1.2-3.8) 10^3/uL [place] # (Auto) 0.7 (0.3-0.8) 10^3/uL Eos # (Auto) 0.1 (0.0-0.7) 10^3/uL Baso # (Auto) 0.1 (0.0-0.1) 10^3/uL Abs Immat Gran (auto) 0.01 (0.00-0.03) 10^3/uL Imm/Tot Granulo (auto) 0.1 (0.0-0.5) % Sodium 136 (136-145) mmol/L Potassium 3.8 (3.5-5.1) mmol/L Chloride 103 (98-107) mmol/L Carbon Dioxide 28.2 (21.0-32.0) mmol/L Anion Gap 8.6 BUN 7.0 (7.0-18.0) mg/dL Creatinine 0.83 (0.55-1.02) mg/dL Est GFR ( Amer) >60 (>=60) Est GFR (Non-Af Amer) >60 (>=60) BUN/Creatinine Ratio 8.4 Glucose 77 (74-106) mg/dL Calcium 8.8 (8.5-10.1) mg/dL Urine Color Lt. yellow (YELLOW) Urine Clarity Clear (CLEAR) Urine pH 6.0 (5.0-9.0) Ur Specific [place] 1.010 (1.005-1.025) Urine Protein Negative (NEG/TRACE) mg/dL Urine Glucose (UA) Negative (NEGATIVE) mg/dL Urine Ketones Negative (NEGATIVE) mg/dL Urine Occult Blood Negative (NEGATIVE) Urine Nitrite Negative (NEGATIVE) Urine Bilirubin Negative (NEGATIVE) Urine Urobilinogen 0.2 (0.2-1.0) EU/dL Ur Leukocyte Esterase Negative (NEGATIVE) Urine RBC 0-2 (0-2) #/HPF Urine WBC 0-2 A (NONE SEEN) #/HPF Ur Squamous Epith Cells Few A (NONE/RARE) #/LPF Urine Crystals None seen (None Seen) #/HPF Urine Bacteria None seen (NONE SEEN) #/HPF Urine Casts None seen (NONE SEEN) #/LPF Urine Mucus Trace A (NONE SEEN) Urine HCG, Qual Negative (NEGATIVE) Imaging Data Pelvic ultrasound: Radiologist's impression: ITS Impressions Transvaginal US 04/14/24 12:55 IMPRESSION: 1. Nabothian paracervical cysts 2. Possible arcuate morphology of uterus, no focal abnormality 3. Enlarged right ovarian volume, bilateral subcentimeter ovarian follicles. Polycystic ovarian morphology considered in the appropriate clinical setting 4. No sonographic sign of adnexal torsion 5. Mild to moderate pelvic free fluid Electronically authenticated by: PIA MI Date: 04/14/2024 15:19 Discharge Plan Discharge Chief Complaint: Abdominal Pain Clinical Impression: Abdominal pain Patient Disposition: Home, Self-Care Prescriptions / Home Meds: No Action albuterol sulfate 90 mcg/actuation HFA aerosol inhaler 2 puff INHALATION Q6H PRN (Reason: shortness of breath or wheezing) buspirone 10 mg tablet 10 mg PO BID prednisone 20 mg tablet 20 mg PO BID 5 Days Qty: 10 0RF hydrocodone-acetaminophen 5-325 mg tablet 1 tab PO Q4H PRN (Reason: pain) Qty: 10 0RF Print Language: Polish Instructions: Abdominal Pain (ED) Referrals: Judith Lindquist MD [Primary Care Provider] - 1 week
[2024-04-14 13:16] LABS: Basophils Absolute Auto 0.1 10^3/uL (0.0-0.1); Basophils Percent Auto 0.8 % (0.2-2.0); Eosinophils Absolute Auto 0.1 10^3/uL (0.0-0.7); Eosinophils Percent Auto 1.7 % (0.9-7.0); Hematocrit 41.5 % (36.0-48.0); Hemoglobin 14.3 g/dL (12.0-16.0); Immature Granulocytes Abs Auto 0.01 10^3/uL (0.00-0.03); Immature Granulocytes Pct Auto 0.1 % (0.0-0.5); Lymphocytes Absolute Auto 2.2 10^3/uL (1.2-3.8); Lymphocytes Percent Auto 29.6 % (20.5-60.0); Mean Corpuscular HGB Conc 34.5 g/dL (29.9-35.2); Mean Corpuscular Hemoglobin 31.1 pg (26.7-34.0); Mean Corpuscular Volume 90.2 fL (81.0-99.0); Monocytes Absolute Auto 0.7 10^3/uL (0.3-0.8); Monocytes Percent Auto 9.6 % (1.7-12.0); Neutrophils Absolute Auto 4.2 10^3/uL (1.4-6.5); Neutrophils Percent Auto 58.2 % (43.0-75.0); Platelet Count 241 10^3/uL (150-450); Red Cell Distribution Width 12.2 % (11.0-15.0); White Blood Count 7.3 10^3/uL (4.0-11.0)
[2024-04-14 13:17] LABS: Bilirubin Urine NEGATIVE (NEGATIVE); Blood Urine NEGATIVE (NEGATIVE); Clarity Urine CLEAR (CLEAR); Color Urine LT. YELLOW (YELLOW); Glucose Urine UA NEGATIVE (NEGATIVE); Ketones Urine NEGATIVE (NEGATIVE); Leukocyte Esterase Urine NEGATIVE (NEGATIVE); Nitrite Urine NEGATIVE (NEGATIVE); Protein Urine NEGATIVE (NEG/TRACE); Urobilinogen Urine 0.2 EU/dL (0.2-1.0)
[2024-04-14 13:18] LABS: HCG Qualitative Urine* NEGATIVE (NEGATIVE); Internal Control Within Normal Limits
[2024-04-14 13:22] LABS: Anion Gap 8.6; BUN Creatinine Ratio 8.4; Calcium 8.8 mg/dL (8.5-10.1); Carbon Dioxide 28.2 mmol/L (21.0-32.0); Chloride 103 mmol/L (98-107); Estimated GFR (African America >60 (>=60); Estimated GFR (Non-African Ame >60 (>=60); Glucose 77 mg/dL (74-106); Potassium 3.8 mmol/L (3.5-5.1); Sodium 136 mmol/L (136-145)
[2024-04-14 13:25] LABS: Bacteria Urine NONE SEEN #/HPF (NONE SEEN); Cast Seen? NONE SEEN #/LPF (NONE SEEN); Crystals Seen? None Seen #/HPF (None Seen); Mucus Urine TRACE (NONE SEEN); RBC Urine 0-2 #/HPF (0-2); Squamous Epithelial Cell Urine FEW #/LPF (NONE/RARE); WBC Urine 0-2 #/HPF (NONE SEEN)
== END 2024-04-14 15:35 | disposition home or self-care (01) ==
PROVIDERS: Emergency Provider Emergency Medicine; PCP Family Medicine
DX: R10.9 Unspecified abdominal pain (principal); E28.2 Polycystic ovarian syndrome
CPT/HCPCS: 36415; 76830; 80048; 81001; 84703; 85025; 99285

== ENCOUNTER 2024-05-21 18:20 | Emergency (ER) | payer SELFPAY ==
[2024-05-21 18:21] VITALS: BP 113/75; PULSE 79; TEMP 36.6; O2SAT 95; BMI 18.3
--- NOTE | 2024-05-21 18:29 | ED_ITS ---
Documented by User: GAIL Reno 05/21/24 21:52 HPI - Abdominal Pain General Chief Complaint: Abdominal Pain Stated Complaint: ABD PAIN Time Seen by Provider: 05/21/24 18:24 Source: patient History of Present Illness HPI narrative: Patient is a 24-year-old female who presents to the emergency department by EMS for 6-hour history of pain in the right lower quadrant radiating across the pelvis. She states she has a history of PCOS and was seen in this emergency department 3 weeks ago diagnosed with an ovarian cyst rupture. She is unsure if she may be today. She denies fevers. She states that she was nauseous but has not had any vomiting. EMS gave Zofran prior to arrival and the patient states that her nausea is gone and her pain is starting to subside. She denies urinary symptoms. She has a history of exploratory laparotomy to the abdomen, no other abdominal surgeries. She states she has irregular periods. Related Data Home Medications ?Medication ?Instructions ?Recorded ?Confirmed albuterol sulfate 90 mcg/actuation 2 puff inhalation Q6H PRN 08/08/23 08/08/23 aerosol inhaler shortness of breath or wheezing buspirone 10 mg tablet 10 mg PO BID 08/08/23 08/08/23 Previous Rx's ?Medication ?Instructions ?Recorded hydrocodone 5 mg-acetaminophen 325 1 tab PO Q4H PRN pain #10 tabs 01/02/24 mg tablet prednisone 20 mg tablet 20 mg PO BID 5 days #10 tabs 01/02/24 Allergies Allergy/AdvReac Type Severity Reaction Status Date / Time acetaminophen (From Fioricet) Allergy Severe Verified 08/08/23 20:09 butalbital (From Fioricet) Allergy Severe Verified 08/08/23 20:09 caffeine (From Fioricet) Allergy Severe Verified 08/08/23 20:09 ciprofloxacin (From Cipro) Allergy Severe Verified 08/08/23 20:09 codeine (From Allergy Severe Verified 08/08/23 20:09 Tylenol-Codeine #3) metoclopramide (From Reglan) Allergy Severe Verified 08/08/23 20:09 Review of Systems ROS Constitutional Denies: fever or chills Ears, nose, mouth, and throat Denies: throat pain or nasal congestion Cardiovascular Denies: chest pain Respiratory Denies: shortness of breath Gastrointestinal Reports: abdominal pain and nausea; Denies: vomiting or diarrhea Genitourinary Reports: pelvic pain; Denies: painful urination Musculoskeletal Denies: back pain Integumentary/Breast Denies: rash Neurological Denies: numbness in extremities or weakness in extremities Hematologic/Lymphatic Denies: easy bruising or easy bleeding [facility] Social History Little interest or pleasure in doing things: not at all Feeling down, depressed, or hopeless: not at all Exam Narrative Exam Narrative: Gen.: Awake, alert, in no distress Head: Normocephalic, atraumatic ENT: Moist mucous membranes Respiratory: No respiratory distress, lungs clear bilaterally Cardio: Regular rate and rhythm Gastrointestinal: Abdomen is soft, diffusely tender across the pelvis with tenderness in the right lower quadrant, no guarding or rebound. Extremities: Moves extremities equally Psych: Normal mood and affect Neuro: No focal neuro deficit Skin: Warm, dry, intact Constitutional Vital Signs, click to edit/add: Last Vital Signs Temp 97.9 F 05/21/24 18:21 Pulse 79 05/21/24 18:21 Resp 18 05/21/24 18:21 BP 113/75 05/21/24 18:21 Pulse Ox 95 05/21/24 18:21 O2 Del Method Room Air 05/21/24 18:21 Course Vital Signs Vital signs: Vital Signs Temperature 97.9 F 05/21/24 18:21 Pulse Rate 79 05/21/24 18:21 Respiratory Rate 18 05/21/24 18:21 Blood Pressure 113/75 05/21/24 18:21 Pulse Oximetry 95 05/21/24 18:21 Oxygen Delivery Method Room Air 05/21/24 18:21 Temperature 97.9 F 05/21/24 18:21 Pulse Rate 79 05/21/24 18:21 Respiratory Rate 18 05/21/24 18:21 Blood Pressure 113/75 05/21/24 18:21 Pulse Oximetry 95 05/21/24 18:21 Oxygen Delivery Method Room Air 05/21/24 18:21 MDM - Abdominal Pain MDM Narrative Medical decision making narrative: 2150: IV was established, labs drawn and urine specimen sent. CT of the abdomen and pelvis shows the patient has no evidence of acute pathology she, free fluid in the pelvis may be physiologic versus ruptured follicular cyst. Patient was sent for an ultrasound to rule out torsion or hemorrhagic cyst. Ultrasound results are pending at this time and case turned over to attending physician for disposition SHARED APC VISIT, PHYSICIAN ATTESTATION: [id number] I performed a substantive part of the MDM during the patient?s E/M visit. I personally evaluated and examined the patient. I personally made or approved the documented management plan and acknowledge its risk of complications. Medical Records Attestation: I reviewed the patient's medical records. Lab Data Attestation: I reviewed the patient's lab results. Labs: Lab Results 05/21/24 05/21/24 Range/Units 18:33 18:41 WBC 12.1 H (4.0-11.0) 10^3/uL RBC 4.40 (4.20-5.40) 10^6/uL Hgb 14.0 (12.0-16.0) g/dL Hct 39.7 (36.0-48.0) % MCV 90.2 (81.0-99.0) fL MCH 31.8 (26.7-34.0) pg MCHC 35.3 H (29.9-35.2) g/dL RDW 11.9 (11.0-15.0) % Plt Count 259 (150-450) 10^3/uL MPV 10.4 (9.5-13.5) fL Neut % (Auto) 76.5 H (43.0-75.0) % Lymph % (Auto) 15.6 L (20.5-60.0) % Sabine % (Auto) 6.3 (1.7-12.0) % Eos % (Auto) 0.9 (0.9-7.0) % Baso % (Auto) 0.5 (0.2-2.0) % Neut # (Auto) 9.2 H (1.4-6.5) 10^3/uL Lymph # (Auto) 1.9 (1.2-3.8) 10^3/uL Sabine # (Auto) 0.8 (0.3-0.8) 10^3/uL Eos # (Auto) 0.1 (0.0-0.7) 10^3/uL Baso # (Auto) 0.1 (0.0-0.1) 10^3/uL Abs Immat Gran (auto) 0.03 (0.00-0.03) 10^3/uL Imm/Tot Granulo (auto) 0.2 (0.0-0.5) % Sodium 143 (136-145) mmol/L Potassium 3.7 (3.5-5.1) mmol/L Chloride 108 H (98-107) mmol/L Carbon Dioxide 21.5 (21.0-32.0) mmol/L Anion Gap 17.2 BUN 12.0 (7.0-18.0) mg/dL Creatinine 1.06 H (0.55-1.02) mg/dL Est GFR ( Amer) >60 (>=60 mL/min/1.73m^2) Est GFR (Non-Af Amer) >60 (>=60 mL/min/1.73m^2) BUN/Creatinine Ratio 11.3 Glucose 106 (74-106) mg/dL Lactate 2.2 H* (0.4-2.0) mmol/L Calcium 8.9 (8.5-10.1) mg/dL Total Bilirubin 1.2 H (0.2-1.0) mg/dL AST 19 (15-37) U/L ALT 22 (14-59) U/L Alkaline Phosphatase 67 (46-116) U/L Total Protein 6.9 (6.4-8.2) g/dL Albumin 3.9 (3.4-5.0) g/dL Globulin 3.0 g/dL Albumin/Globulin Ratio 1.3 Urine Color Yellow (YELLOW) Urine Clarity Clear (CLEAR) Urine pH 5.5 (5.0-9.0) Ur Specific [place] >=1.030 A (1.005-1.025) Urine Protein Trace (NEG/TRACE) mg/dL Urine Glucose (UA) Negative (NEGATIVE) mg/dL Urine Ketones Trace A (NEGATIVE) mg/dL Urine Occult Blood Large A (NEGATIVE) Urine Nitrite Negative (NEGATIVE) Urine Bilirubin Small A (NEGATIVE) Urine Urobilinogen 0.2 (0.2-1.0) EU/dL Ur Leukocyte Esterase Negative (NEGATIVE) Urine RBC 50-75 A (0-2) #/HPF Urine WBC 2-5 A (NONE SEEN) #/HPF Ur Squamous Epith Cells Few A (NONE/RARE) #/LPF Urine Crystals None seen (None Seen) #/HPF Urine Bacteria Small A (NONE SEEN) #/HPF Urine Casts Seen A (NONE SEEN) #/LPF Hyaline Casts Rare Urine Mucus Small A (NONE SEEN) Ur Culture Indicated? Yes Urine HCG, Qual Negative (NEGATIVE) Imaging Data CT scan - abdomen: Attestation: I have reviewed the pertinent imaging results. Radiologist's impression: ITS Impressions Abdomen/Pelvis CT 05/21/24 18:39 Impression: 1. No evidence of acute abdominal or pelvic process. 2. Small amount of free fluid in cul-de-sac, most likely physiological. Probably ruptured right ovarian follicle. Please correlate clinically. 3. Pectus excavatum. Electronically authenticated by: ANH DEJESUS Date: 05/21/2024 21:09 Transvaginal US 05/21/24 20:51 IMPRESSION: Unremarkable pelvic ultrasound. Electronically authenticated by: MIKAYLA ORR Date: 05/21/2024 23:29 Discharge Plan Discharge Chief Complaint: Abdominal Pain Clinical Impression: Abdominal pain Patient Disposition: Home, Self-Care Time of Disposition Decision: 23:53 Condition: Good Prescriptions / Home Meds: No Action albuterol sulfate 90 mcg/actuation HFA aerosol inhaler 2 puff INHALATION Q6H PRN (Reason: shortness of breath or wheezing) buspirone 10 mg tablet 10 mg PO BID prednisone 20 mg tablet 20 mg PO BID 5 Days Qty: 10 0RF hydrocodone-acetaminophen 5-325 mg tablet 1 tab PO Q4H PRN (Reason: pain) Qty: 10 0RF Print Language: Uzbek Instructions: Pelvic Pain (ED) Referrals: Judith Lindquist MD [Primary Care Provider] - 1 week Oscar Bonilla DO [Physician] - 1 week Documented by User: Hillary Reza MD 05/21/24 23:56 HPI - Abdominal Pain General Chief Complaint: Abdominal Pain Stated Complaint: ABD PAIN Time Seen by Provider: 05/21/24 18:24 Related Data Home Medications ?Medication ?Instructions ?Recorded ?Confirmed albuterol sulfate 90 mcg/actuation 2 puff inhalation Q6H PRN 08/08/23 08/08/23 aerosol inhaler shortness of breath or wheezing buspirone 10 mg tablet 10 mg PO BID 08/08/23 08/08/23 Previous Rx's ?Medication ?Instructions ?Recorded hydrocodone 5 mg-acetaminophen 325 1 tab PO Q4H PRN pain #10 tabs 01/02/24 mg tablet prednisone 20 mg tablet 20 mg PO BID 5 days #10 tabs 01/02/24 Allergies Allergy/AdvReac Type Severity Reaction Status Date / Time acetaminophen (From Fioricet) Allergy Severe Verified 08/08/23 20:09 butalbital (From Fioricet) Allergy Severe Verified 08/08/23 20:09 caffeine (From Fioricet) Allergy Severe Verified 08/08/23 20:09 ciprofloxacin (From Cipro) Allergy Severe Verified 08/08/23 20:09 codeine (From Allergy Severe Verified 08/08/23 20:09 Tylenol-Codeine #3) metoclopramide (From Reglan) Allergy Severe Verified 08/08/23 20:09 PFSH PFSH Social History Little interest or pleasure in doing things: not at all Feeling down, depressed, or hopeless: not at all Exam Constitutional Vital Signs, click to edit/add: Last Vital Signs Temp 97.9 F 05/21/24 18:21 Pulse 79 05/21/24 18:21 Resp 18 05/21/24 18:21 BP 113/75 05/21/24 18:21 Pulse Ox 95 05/21/24 18:21 O2 Del Method Room Air 05/21/24 18:21 Course Vital Signs Vital signs: Vital Signs Temperature 97.9 F 05/21/24 18:21 Pulse Rate 79 05/21/24 18:21 Respiratory Rate 18 05/21/24 18:21 Blood Pressure 113/75 05/21/24 18:21 Pulse Oximetry 95 05/21/24 18:21 Oxygen Delivery Method Room Air 05/21/24 18:21 Temperature 97.9 F 05/21/24 18:21 Pulse Rate 79 05/21/24 18:21 Respiratory Rate 18 05/21/24 18:21 Blood Pressure 113/75 05/21/24 18:21 Pulse Oximetry 95 05/21/24 18:21 Oxygen Delivery Method Room Air 05/21/24 18:21 MDM - Abdominal Pain MDM Narrative Medical decision making narrative: 2150: IV was established, labs drawn and urine specimen sent. CT of the abdomen and pelvis shows the patient has no evidence of acute pathology she, free fluid in the pelvis may be physiologic versus ruptured follicular cyst. Patient was sent for an ultrasound to rule out torsion or hemorrhagic cyst. Ultrasound results are pending at this time and case turned over to attending physician for disposition SHARED APC VISIT, PHYSICIAN ATTESTATION: [id number] I performed a substantive part of the MDM during the patient?s E/M visit. I personally evaluated and examined the patient. I personally made or approved the documented management plan and acknowledge its risk of complications. This 24-year-old female was seen and evaluated in conjunction with the physician fleet administrative assistant. She presents for evaluation of right lower quadrant abdominal pain. CT scan of the abdomen pelvis was negative for acute findings but did show some free fluid in the pelvis with a possible ruptured ovarian follicle. Ultrasound was ordered and is negative for acute findings. I explained to the patient that if she did have a ruptured follicle it may not be seen on the ultrasound but there is no sign of any significant pathology on her ultrasound or in her CAT scan. She states she is having some return of her pain. Dr. Bonilla is her [employer]LYST. She does have a history of PCOS. I explained to the patient and her significant other that in light of her history of PCOS she may have ovarian cysts and cyst pain that comes and goes throughout her menstrual life. She will be given a dose of Toradol prior to discharge and discharged home with a prescription for ibuprofen with recommendation for close follow-up with her [employer]IA ANALYST. Lab Data Labs: Lab Results 05/21/24 05/21/24 Range/Units 18:33 18:41 WBC 12.1 H (4.0-11.0) 10^3/uL RBC 4.40 (4.20-5.40) 10^6/uL Hgb 14.0 (12.0-16.0) g/dL Hct 39.7 (36.0-48.0) % MCV 90.2 (81.0-99.0) fL MCH 31.8 (26.7-34.0) pg MCHC 35.3 H (29.9-35.2) g/dL RDW 11.9 (11.0-15.0) % Plt Count 259 (150-450) 10^3/uL MPV 10.4 (9.5-13.5) fL Neut % (Auto) 76.5 H (43.0-75.0) % Lymph % (Auto) 15.6 L (20.5-60.0) % [place] % (Auto) 6.3 (1.7-12.0) % Eos % (Auto) 0.9 (0.9-7.0) % Baso % (Auto) 0.5 (0.2-2.0) % Neut # (Auto) 9.2 H (1.4-6.5) 10^3/uL Lymph # (Auto) 1.9 (1.2-3.8) 10^3/uL Sabine # (Auto) 0.8 (0.3-0.8) 10^3/uL Eos # (Auto) 0.1 (0.0-0.7) 10^3/uL Baso # (Auto) 0.1 (0.0-0.1) 10^3/uL Abs Immat Gran (auto) 0.03 (0.00-0.03) 10^3/uL Imm/Tot Granulo (auto) 0.2 (0.0-0.5) % Sodium 143 (136-145) mmol/L Potassium 3.7 (3.5-5.1) mmol/L Chloride 108 H (98-107) mmol/L Carbon Dioxide 21.5 (21.0-32.0) mmol/L Anion Gap 17.2 BUN 12.0 (7.0-18.0) mg/dL Creatinine 1.06 H (0.55-1.02) mg/dL Est GFR ( Amer) >60 (>=60 mL/min/1.73m^2) Est GFR (Non-Af Amer) >60 (>=60 mL/min/1.73m^2) BUN/Creatinine Ratio 11.3 Glucose 106 (74-106) mg/dL Lactate 2.2 H* (0.4-2.0) mmol/L Calcium 8.9 (8.5-10.1) mg/dL Total Bilirubin 1.2 H (0.2-1.0) mg/dL AST 19 (15-37) U/L ALT 22 (14-59) U/L Alkaline Phosphatase 67 (46-116) U/L Total Protein 6.9 (6.4-8.2) g/dL Albumin 3.9 (3.4-5.0) g/dL Globulin 3.0 g/dL Albumin/Globulin Ratio 1.3 Urine Color Yellow (YELLOW) Urine Clarity Clear (CLEAR) Urine pH 5.5 (5.0-9.0) Ur Specific [place] >=1.030 A (1.005-1.025) Urine Protein Trace (NEG/TRACE) mg/dL Urine Glucose (UA) Negative (NEGATIVE) mg/dL Urine Ketones Trace A (NEGATIVE) mg/dL Urine Occult Blood Large A (NEGATIVE) Urine Nitrite Negative (NEGATIVE) Urine Bilirubin Small A (NEGATIVE) Urine Urobilinogen 0.2 (0.2-1.0) EU/dL Ur Leukocyte Esterase Negative (NEGATIVE) Urine RBC 50-75 A (0-2) #/HPF Urine WBC 2-5 A (NONE SEEN) #/HPF Ur Squamous Epith Cells Few A (NONE/RARE) #/LPF Urine Crystals None seen (None Seen) #/HPF Urine Bacteria Small A (NONE SEEN) #/HPF Urine Casts Seen A (NONE SEEN) #/LPF Hyaline Casts Rare Urine Mucus Small A (NONE SEEN) Ur Culture Indicated? Yes Urine HCG, Qual Negative (NEGATIVE) Imaging Data CT scan - abdomen: Radiologist's impression: ITS Impressions Abdomen/Pelvis CT 05/21/24 18:39 Impression: 1. No evidence of acute abdominal or pelvic process. 2. Small amount of free fluid in cul-de-sac, most likely physiological. Probably ruptured right ovarian follicle. Please correlate clinically. 3. Pectus excavatum. Electronically authenticated by: ANH DEJESUS Date: 05/21/2024 21:09 Transvaginal US 05/21/24 20:51
--- OUTSIDE RECORDS SUMMARY | 2024-05-21 18:29 | XMS_ITS | CCD ---
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 Name Role Phone Pcp, No Primary [...] Provider Unava ilable LALO Stallworth Attending Provider [phone] MD [employer] Primary Care Provider [phone] DO Bentley Byrne Attending Provider [phone] LALO Bailey Attending Provider Unavailable Primary Care Provider UnavailMD Kya Rose Attending Provider MD [employer] Primary Care Provider [phone] Pia Laureano Unavailable Adriana Stallworth Admitting Unavailable Adriana Stallworth Attending Unavailable NO FAMILY, PHYSICIAN Primary Care Unavailable [employer] Primary Care Unavailable Reji Bailey Admitting Unavailable Reji Bailey Attending Unavailable Kya Hoskins Admitting Unavailable Kya Hoskins Attending Unavailable [employer] Primary Care Unavailable Kya Hoskins Admitting Unavailable Aidee, Kya Attending Unavailable [employer] Primary Care Unavailable [employer] Primary Care Unavailable Bentley Byrne Admitting Unavailab Bentley Boland Attending Unavailab MD [employer] Primary Care Provider MD Kya Hoskins Attending Provider BLACKSTON, MOHAN T Attending Unavailable NABIL, BERNARDINO [...] Attending Unavailable HALADAY, PIA G Referring Unavailable YOGI-MORREN, MONSERRAT Referring Unavailable YOGI-MORREN, MONSERRAT Attending Unavailable YOGI-MORREN, MONSERRAT Referring Unavailable LATONYA LAGUNAAN Attending Unavailable HOLLIE, HUSSEIN Y Referring Unavailable HOLLIE, HUSSEIN Y Attending Unavailable YOGI-MORREN, MONSERRAT Referring Unavailable HOLLIE, HUSSEIN Y Attending Unavailable Allergies Allergy Classification Reported Allergen(s) Allergy Type Date of Onset Reaction(s) Facility (20 sources) Ciprofloxacin; Translations: [CIPROFLOXACIN] Drug Allergy 02-16-20 23 [facility] (20 sources) Codeine; Translations: [CODEINE] Drug Allergy 09-19-19 15 Hives, Other: See [facility] (13 sources) venlafaxine; Translations: [Effexor] Drug Allergy 09-17-19 20 swelling/shaki ng [facility] (15 sources) Atenolol; Translations: [ATENOLOL] Drug Allergy 10-10-19 [facility] (14 sources) Cefuroxime; Translations: [CEFUROXIME] Drug Allergy 10-10-19 Hives [facility] Repository (2 sources) Ciprofloxacin Drug Allergy very nauseous [facility] (1 source) Codeine Drug Allergy 04-21-20 13 [facility] (4 sources) Iothalamate Drug Allergy 09-17-19 Unknown [facility] (2 sources) Perazine Drug Allergy Unknown [facility] (4 sources) predniSONE Drug Allergy 01-24-20 19 Unknown [facility] (4 sources) Sulfamethoxazole / Trimethoprim Drug Allergy Unknown [facility] (13 sources) Atenolol Drug Allergy 10-21-19 24 [facility] (16 sources) Cefuroxime Drug Allergy 09-24-19 18 [facility] Bitium Other (3 sources) Codeine Drug Allergy Unknown Bitium Other (20 sources) rizatriptan; Translations: [RIZATRIPTAN] Drug Allergy 02-16-20 23 [facility] (20 sources) venlafaxine; Translations: [VENLAFAXINE] Drug Allergy 02-16-20 23 [facility] (3 sources) corticosteroid and/or corticosteroid derivative (FN) Drug allergy Unknown Bitium Other (1 source) Cefuroxime Drug Allergy Unknown Bitium Other (1 source) Codeine Drug Allergy sensitive over dose as a child Bitium Other (1 source) venlafaxine Drug Allergy Unknown Bitium Other (18 sources) Corticosteroids; Translations: [Corticosteroids (Glucocorticoids)] Allergy to substance 10-10-19 24 [facility] (20 sources) Metoclopramide; Translations: [metoclopramide] Drug Allergy 02-16-20 [facility] (20 sources) Sulfamethoxazole; Translations: [sulfamethoxazole] Drug Allergy 10-10-19 [facility] (20 sources) Trimethoprim; Translations: [trimethoprim] Drug Allergy 10-10-19 [facility] (1 source) Atenolol Drug Allergy 02-15-20 [facility] Repository (1 source) Cefuroxime Drug Allergy 02-15-20 [facility] (1 source) Ciprofloxacin Drug Allergy 02-15-20 [facility] (1 source) Codeine Drug Allergy 02-15-20 [facility] (1 source) rizatriptan Drug Allergy 02-15-20 [facility] (1 source) venlafaxine Drug Allergy 02-15-20 [facility] Repository Medications Current Medications Medication Drug Class(es) Dates Sig (Normalized) Sig (Original) amoxicillin 875 mg / clavulanate 125 mg [...] Start: 09-16-2022 take 1 capsule by mo [facility] every eight hours Benzonatate 200 [...] 1 tablet by mouth every 12 hours. 11/01/2023 Active Start: 10-07-2023 End: 12-22-2023 take [...] as directed for 6 days May, Active 24 hr metoprolol succinate 25 mg extended release oral tablet (3 sources) beta-Adrenergic Cindi Start: 04-12-2024 take 1 tablet by mouth twice daily Metoprolol Succinate Active 0 .ROUTE .COMPLEX 60 April 12, 2024 12:21pm TAKE 1 TABLET BY MOUTH TWICE DAILY Start: 04-12-2024 End: 04-12-2024 take 1 tablet by mouth once daily Metoprolol Succinate Discontinued 25 MG PO Twice daily April 12, 2024 12:00am April 12, 2024 12:22pm FreeTextSig: Take 1 tablet by mouth once daily; Note: Source Status: Start; Refills: 2; Qty: 30 Tablet; Provider: Aidee Boland ( ) take 1 tablet by zachary twice daily metoprolol succinate ER (TOPROL XL) 25 mg 24 hr tablet Take 25 mg by mouth two times a day. Active ondansetron 4 mg disintegrating oral tablet (20 sources) Serotonin-3 Receptor Antagonist Start: 10-14-2023 End: 04-18-2024 take 1 tablet by mouth every eight hours as needed for nausea and vomiting ondansetron orally disintegrating (ZOFRAN ODT) 4 mg disintegrating tablet DISSOLVE 1 (ONE) TABLET ON THE TONGUE EVERY 8 HOURS NEEDED FOR NAUSEA AND VOMITING 11/08/2023 Active pantoprazole 40 mg delayed release oral tablet (16 sources) Proton Pump Inhibitor Start: 04-18-2024 take 40 mg by mouth twice daily Pantoprazole Active 40 MG PO Twice daily April 18, 2024 12:00am Start: 02-15-2024 End: 04-12-2024 take 1 tablet by mouth twice daily Pantoprazole (Protonix) 40 mg tablet,delayed release (DR/EC) Discontinued 40 MG PO Twice daily 60 February 15, 2024 12:00am April 12, 2024 11:39am Start: 10-21-2023 End: 02-15-2024 take 1 tablet by mouth once daily Pantoprazole (Protonix) 40 mg tablet,delayed release (DR/EC) Discontinued 40 MG PO Daily October 21, 2023 12:00am February 15, 2024 1:43pm pregabalin 25 mg oral capsule (1 source) Start: 05-11-2024 End: 08-09-2024 take 1 capsule by mouth three times daily pregabalin (LYRICA) 25 mg capsule Indications: Chronic pain syndrome , Fibromyalgia Take 1 capsule by mouth three times a day for 90 days. 90 capsule 2 05/11/2024 08/09/2024 Active ubrogepant 50 mg oral tablet (8 sources) Start: 12-09-2023 ubrogepant (UB RELVY) 50 mg tablet Take 1 tablet by mouth as needed (migraine headache). 16 tablet 2 12/09/2023 Active Completed/Discontinued Medications Medication Drug Class(es) Dates Sig (Normalized) Sig (Original) [id number] 200 actuat albuterol 0.09 mg/actuat metered dose inhaler (20 sources) beta2-Adrenergic Agonist Start: 10-07-2023 End: 04-18-2024 take 2 puff(s) by inhalation four times daily as needed Albuterol Sulfate Discontinued 2 PUFF INHALATION Four times daily January 06, 2024 9:31am April 18, 2024 2:23pm FreeTextSi puffs Inhalation 4 times a day prn; Note: Source Status: Taking; Refills: 0; Provider: Leta Sloan Start: 07-05-2023 take 2 puff(s) by in halation four times daily as needed Albuterol Sulfate HFA 108 (90 Base) MCG/ACT 2 puffs Inhalation 4 times a day prn Jun, Active amoxicillin 500 mg oral capsule (10 sources) Penicillin-class Antibacterial Start: 09-10-2022 take 1 capsule by mouth every twelve hours Amoxicillin 500 MG 1 capsule Orally Twice a day for 7 days Aug, Not-Taking/PRN Start: 09-10-2022 take 1 capsule by ar ut every eight hours Amoxicillin 500 MG 1 capsule Orally three times a day for 10 day(s) Aug, Not-Taking Start: 06-14-2022 take 1 capsule by [facility] every eight hours Amoxicillin 500 MG 1 capsule Orally three times a day for 10 day(s) May, Active cyproheptadine hydrochloride 4 mg oral tablet (19 sources) Start: 10-07-2023 End: 10-10-2023 take 4 mg by mouth once daily at bedtime Cyproheptadine Discontinued 4 MG PO Daily at bedtime October 07, 2023 12:00am October 10, 2023 1:08pm Cyproheptadine H Cl Not-Taking/PRN Cyproheptadine H Cl Not-Taking Cyproheptadine H Cl Active iv contrast (will be provided with radiology test) (1 source) Start: 11-18-2023 End: 11-19-2023 iv contrast (will be provided with radiology test) Indications: Abnormal brain MRI [...] guidelines link. 1 Each 0 11/18/2023 11/19/2023 lubiprostone (3 sources) Chloride Channel Activator Start: 02-17-2024 End: 04-18-2024 take 1 capsule by mouth twice daily Lubiprostone (Amitiza) 8 mcg capsule Discontinued 8 MCG PO Twice daily 60 February 17, 2024 12:00am April 18, 2024 2:24pm Start: 02-17-2024 take 1 capsule by [facility] twice daily Lubiprostone (Amitiza) 8 mcg capsule Active 8 MCG PO Twice daily 60 February 17, 2024 12:00am Metoprolol-HCTZ ER (10 sources) Metoprolol-HCTZ ER Not-Taking/PRN Metoprolol-HCTZ ER Not-Taking Metoprolol-HCTZ ER Active nitrofurantoin, macrocrystals 25 mg / nitrofurantoin, monohydrate 75 mg oral capsule (7 sources) Nitrofuran Antibacterial Start: 01-15-2023 take 1 capsule by mouth every twelve hours Macrobid 100 MG 1 cap(s) Orally bid for 5 day(s) Dec, Not-Taking/PRN phenazopyridine hydrochloride 200 mg oral tablet (19 sources) Start: 10-07-2023 End: 10-10-2023 take 1 [...] Dec, Not-Taking/PRN Plecanatide (Trulance) 3 mg tablet (4 sources) Start: 02-15-2024 End: 04-12-2024 take 1 [...] a day for 5 day(s) Aug, Not-Taking/PRN propranolol hydrochloride 10 mg oral tablet (10 sources) beta-Adrenergi c Cindi Start: 01-06-2024 End: 04-12-2024 take 10 mg by mouth twice daily Propranolol Discontinued 10 MG PO Twice daily March 16, 2024 9:59am April 12, 2024 12:10pm topiramate (10 sources) Topamax Not-Taking/PRN Topamax Not-Taki ng Topamax Active Problems Active Problems Problem Classification Problem Date Documented Da te Episodic/Chronic Bacterial infection; unspecified site (2 sources) Other specified bacterial agents as the cause of diseases classified elsewhere Episodic Cardiac dysrhythmias (15 sources) Palpitations; Translations: [Palpitations] Onset: 4 01-06-2024 Episodic Chronic obstructive pulmonary disease and bronchiectasis (1 source) Bronchitis, not specified as acute or chronic Episodic Conditions associated with dizziness or vertigo (12 sources) Dizziness; Translations: [Dizziness] Episodic E Codes: Natural/environment (1 source) Overexertion from prolonged static or awkward postures, initial encounter; Translations: [OVEREXERT PROLNG STAT/AWK PST INIT] Onset: 3 Episodic Esophageal disorders (9 sources) Gastroesophageal reflux disease; Translations: [Gastro-esophageal reflux [...] diseases Z20.828] Onset: 1 Resolved: 1 Episodic Menstrual disorders (3 sources) Missed period; Translations: [Irregular menstruation, unspecified] Chronic Nausea and vomiting (20 sources) Nausea and vomiting; Translations: [Nausea with vomiting, unspecified] Onset: 4 10-10-2023 Episodic Other and unspecified benign neoplasm (2 sources) Pituitary adenoma; Translations: [Benign neoplasm of pituitary gland] 11-23-2023 Episodic Other connective tissue disease (5 sources) Muscle pain; Translations: [Myalgia, unspecified site] 01-10-2024 Episodic Other connective tissue disease (5 sources) Fibromyalgia; Translations: [Fibromyalgia] 02-15-2024 Episodic Other connective tissue disease (2 sources) Fibromyalgia; Translations: [Myalgia and myositis, unspecified] 04-12-2024 Episodic Other connective tissue disease (2 sources) Myalgia, unspecified site; Translations: [Myalgia and myositis, unspecified] 04-12-2024 Episodic Other endocrine disorders (1 source) Hypophysitis; Translations: [Other disorders of pituitary gland] 11-16-2023 Chronic Other endocrine disorders (2 sources) Disorder of pituitary gland; Translations: [Disorder of pituitary gland, unspecified] 11-23-2023 Chronic Other gastrointestinal disorders (7 sources) Celiac disease; Translations: [Celiac disease] 10-21-2023 Chronic Other gastrointestinal disorders (3 sources) Irritable bowel syndrome characterized by constipation; Translations: [Irritable bowel syndrome with constipation] 02-15-2024 Chronic Other gastrointestinal disorders (6 sources) Irritable bowel syndrome with constipation; Translations: [Irritable bowel syndrome] 02-15-2024 Chronic Other gastrointestinal disorders (11 sources) Chronic constipation; Translations: [Other constipation] 10-10-2023 [...] Episodic Other nervous system disorders (2 sources) Chronic pain syndrome; Translations: [Chronic pain syndrome] 04-27-2024 Chronic Other nervous system disorders (1 source) Chronic pain syndrome; Translations: [Chronic pain syndrome] Onset: 4 Chronic Other nervous system disorders (2 sources) Abnormal gait; Translations: [Unsteadiness on feet] 11-18-2023 Episodic Other non-traumatic joint disorders (3 sources) Pain in left ankle and joints of left foot; Translations: [PAIN IN LEFT ANKLE] Onset: 3 Episodic Other upper respiratory disease (12 sources) Allergic rhinitis; Translations: [Allergic rhinitis, unspecified] Chronic Other upper respiratory infections (20 sources) Acute sinusitis; Translations: [Sinusitis acute] Onset: 1 Resolved: 1 Episodic Residual codes; unclassified (11 sources) Staring; Translations: [Transient alteration of awareness] [...] function of stomach] Onset: 12-09-2023 10-21-2023 Episodic Malaise and fatigue (20 sources) Fatigue; Translations: [Other fatigue] Onset: 12-09-2023 10-10-2023 Episodic Other circulatory disease (3 sources) Orthostatic hypotension; Translations: [Orthostatic hypotension] Onset: 07-19-2013 Episodic Other connective tissue disease (4 sources) Pain in left foot; Translations: [PAIN IN LEFT FOOT] Onset: 01-05-2022 Episodic Other nervous system disorders (1 source) Ataxia, unspecified; Translations: [Ataxia, unspecified] Onset: 10-27-2023 Episodic Other nervous system disorders (1 source) Unsteadiness on feet; Translations: [Gait instability] Onset: 12-09-2023 Episodic Other non-traumatic joint disorders (1 source) Other specified joint disorders, left ankle and foot; Translations: [OTHER SPEC JOINT D/O LT ANKLE FOOT] Onset: 01-07-2022 Episodic Other screening for suspected conditions (not mental disorders or infectious disease) (11 sources) Magnetic resonance imaging of brain abnormal; Translations: [Other abnormal findings on diagnostic imaging of central nervous system] Onset: 12-19-2023 11-23-2023 Episodic Residual codes; unclassified (1 source) Pain, unspecified; Translations: [Generalized pain] Onset: 12-09-2023 Episodic Unclassified (1 source) Suspected COVID-19 virus infection Z20.822 Results Test Name Value Interpretation Reference Range Facility CNOVon 05-11-2024 CNOV Office Visit (PIO ) CHARLY FOSTER ([id number]) 2000 F Date Time Provider Department 05/11/24 8:30 AM RADHA LAGUNA During your visit today, we recorded the following information about you: Pulse Blood pressure Weight 53/minute 91/54 50 kg Radha Laguna MD 05/11/2024 9:22 AM Signed [facility] Pain Management Department Consultation Date: May 11, 2024 - AM Referring physician: Hussein Browne [address] [phone] Charly Foster is self referred. Chief Complaint: Patient presents with: Consult SUBJECTIVE History of Present Illness Charly Foster is a 23 year old and presents with diffuse body pain. Past medical history is significant for: No past medical history on file. Intensity of pain: 8 on a scale of 0-10. Duration of pain: 36 Years ago, with no precipitating event.. The pain is located Generalized and does not radiate . Pain Description: Continuous Sore Timing: changes in severity but always present Aggravating Factors: no change in pain symptoms with position or activity Alleviating Factors: Heat, Medication, Relaxation Interference with: physical activity and work. In the past 12 months, She completed 10 physical therapy sessions. Physical therapy is not helpful. The patient has not seen other pain providers. 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 Past pain treatment has included PT Past pain medications have included NSAIDs (advil, ibuprofen, celebrex, meloxicam, etc) She had relief from the following interventions: None She had relief from the following medications:None Review of Systems Constitutional: Positive for malaise/fatigue. Negative for chills, diaphoresis, fever and weight loss. HENT: Positive for congestion and sinus pain. Negative for ear discharge, ear pain, hearing loss, nosebleeds, sore throat and tinnitus. Eyes: Positive for blurred vision. Negative for double vision, photophobia, pain, discharge and redness. Respiratory: Positive for shortness of breath. Negative for cough, hemoptysis, sputum production, wheezing and stridor. Cardiovascular: Positive for chest pain and palpitations. Negative for orthopnea, claudication, leg swelling and PND. Gastrointestinal: Positive for abdominal pain, constipation and nausea. Negative for blood in stool, diarrhea, heartburn, melena and vomiting. Genitourinary: Negative. Musculoskeletal: Positive for back pain, joint pain, myalgias and neck pain. Negative for falls. Skin: Negative. Neurological: Positive for dizziness, tingling and headaches. Negative for tremors, sensory change, speech change, focal weakness, seizures, loss of consciousness and weakness. Endo/Heme/Allergies: Negative for environmental allergies and polydipsia. Bruises/bleeds easily. Psychiatric/Behavioral: Positive for depression and memory loss. Negative for hallucinations, substance abuse and suicidal ideas. The patient is nervous/anxious and has insomnia. OBJECTIVE Imaging Objective May 11, 2024 None Reports listed here were copy and pasted directly into the note after review of the complete report and/or the images. Those areas highlighted in red are significant and specific to today's encounter. Physical Examination Physical Exam Vitals: BP 91/54 Pulse 53 Wt 110 lb 3.7 oz (50.0kg) LMP 10/24/2023 General: Well appearing, alert, in no acute distress, well-hydrated, well nourished. and Thin Mental Status: Alert and Oriented x3. Speech is quiet. Affect: sad Skin: Skin color, texture, turgor normal, no suspicious rashes or lesions HEENT: Pupils equal, round, reactive to light. Not pinpoint. Pulmonary: Breathing easily without tachypnea or bradypnea. Cardiac: No LE edema. Abdomen: soft, not distended Ambulation: Gait is normal. Patient ambulates, unassisted. Neuro/Musculoskeletal: Diffuse tenderness to light palpation throughout - rest of exam deferred secondary to pain reproduced Patient denies any red flag symptoms such as bowel/bladder dysfun (more content not included)... Normal [facility]ka 04-30-2024 CNPN Telephone (MUSAAVJonh) CHARLY FOSTER ([id number]) 2000 F Date Time Provider Department 04/30/24 RADHA LAGUNA During your visit today, we recorded the following information about you: Carlee Manzo RN 04/30/2024 4:15 PM Signed New patient information sent via my chart Allergies As of Date: 04/30/2024 Noted Allergy Reaction CODEINE 09/19/2014 4 - [...] Unknown Date Reviewed: 11/23/2023 Reviewed by: Evelyn Melo RN - Fully Assessed Reason for Visit: Appointment [[id number]] Cmt: New patient call Prescriptions as of 04/30/2024 - ubrogepant (UBRELVY) 50 mg tablet Take 1 tablet by mouth as needed (migraine headache). - busPIRone (BUSPAR) 10 mg tablet Take 1 tablet by mouth every 12 hours. - ondansetron orally disintegrating (ZOFRAN ODT) 4 mg disintegrating tablet DISSOLVE 1 (ONE) TABLET ON THE TONGUE EVERY 8 HOURS NEEDED FOR NAUSEA AND VOMITING Problem List As Of Date 04/30/2024 Noted Resolved Elevated prolactin level [R79.89] 12/19/2023 Encounter Status:Closed by CARLEE MANZO on 04/30/24 Normal [facility] Basophils Auto (Bld) [#/Vol] on 04-14-2024 Basophils (Bld) [#/Vol] 0.1 10 3/uL 0.0-0.1 [facility] Basophils/100 WBC Auto (Bld) on 04-14-2024 Basophils/100 WBC (Bld) 0.8 % 0.2-2.0 [facility] Eosinophils/100 WBC Auto (Bl d)on 04-14-2024 Eosinophils/100 WBC (Bld) 1.7 % 0.9-7.0 [facility] Erythrocyte distribution wid th Auto (RBC) [Ratio]on 04-14-2024 Erythrocyte distribution width (RBC) [Ratio] 12.2 % 11.0-15.0 [facility] Estimated glomerular filtrat ion rate (GFR) non- Americanon 04-14-2024 GFR/1.73 sq M.predicted among non-blacks MDRD (S/P/Bld) [Vol rate/Area] mL/min/{1.73_m2} >=60 [facility] HCG ( test) IA.rapi d Ql (U)on 04-14-2024 HCG ( test) Ql (U) Negative NEGATIVE [facility] Hematocrit Auto (Bld) [Volum e fraction]on 04-14-2024 Hematocrit (Bld) [Volume fraction] 41.5 % 36.0-48.0 [facility] Hemoglobin [Mass/volume] in Bloodon 04-14-2024 Hemoglobin (Bld) [Mass/Vol] 14.3 g/dL 12.0-16.0 [facility] Laboratory - Chemistry and C hemistry - challengeon 04-14-2024 Calcium [Mass/Vol] 8.8 mg/dL 8.5-10.1 [facility] Chloride [Moles/Vol] 103 mmol/L 98-107 [facility] CO2 [Moles/Vol] 28.2 mmol/L 21.0-32.0 [facility] Creatinine [Mass/Vol] 0.83 mg/dL 0.55-1.02 [facility] GFR/1.73 sq M.predicted MDRD (S/P/Bld) [Vol rate/Area] mL/min/{1.73_m2} >=60 [facility] Glucose [Mass/Vol] 77 mg/dL 74-106 [facility] Potassium [Moles/Vol] 3.8 mmol/L 3.5-5.1 [facility] Sodium [Moles/Vol] 136 mmol/L 136-145 [facility] Urea nitrogen [Mass/Vol] 7.0 mg/dL 7.0-18.0 [facility] Urea nitrogen/Creatinin e [Mass ratio] 8.4 mg/mg [facility] Bilirubin Ql (U) Negative NEGATIVE [facility] Glucose (U) [Mass/Vol] Negative NEGATIVE [facility] Ketones Ql (U) Negative NEGATIVE [facility] pH (U) 6.0 [pH] 5.0-9.0 [facility] Specific gravity (U) [Rel density] 1.010 1.005-1.025 [facility] Urobilinogen Qn (U) 0.2 {Scot'U}/dL 0.2-1.0 [facility] Laboratory - Hematology and Cell countson 04-14-2024 Immature granulocytes/100 WBC (Bld) 0.1 % 0.0-0.5 [facility] Laboratory - Specimen inform ationon 04-14-2024 Appearance (U) CLEAR CLEAR [facility] Color (U) LT. YELLOW YELLOW [facility] Laboratory - Urinalysison Leukocyte esterase Test strip Ql (U) Negative NEGATIVE [facility] Mucus Ql (Urine sed) TRACE Abnormal NONE SEEN [facility] Nitrite Ql (U) Negative NEGATIVE [facility] Protein Ql (U) Negative NEG/TRACE [facility] Leukocytes [#/volume] correc jeri for nucleated erythrocytes in Blood by Automated counon 04-14-2024 WBC corrected for nucl RBC Auto (Bld) [#/Vol] 7.3 10 3/uL 4.0-11.0 [facility] Lymphocytes Auto (Bld) [#/Vo l]on 04-14-2024 Lymphocytes (Bld) [#/Vol] 2.2 10 3/uL 1.2-3.8 [facility] Lymphocytes/100 WBC Auto (Bl d)on 04-14-2024 Lymphocytes/100 WBC (Bld) 29.6 % 20.5-60.0 [facility] MCH Auto (RBC) [Entitic mass ]on 04-14-2024 MCH (RBC) [Entitic mass] 31.1 pg 26.7-34.0 [facility] MCHC Auto (RBC) [Mass/Vol]on 04-14-2024 MCHC (RBC) [Mass/Vol] 34.5 g/dL 29.9-35.2 [facility] MCV Auto (RBC) [Entitic vol] on 04-14-2024 MCV (RBC) [Entitic vol] 90.2 fL 81.0-99.0 [facility] Monocytes Auto (Bld) [#/Vol] on 04-14-2024 Monocytes (Bld) [#/Vol] 0.7 10 3/uL 0.3-0.8 [facility] Monocytes/100 WBC Auto (Bld) on 04-14-2024 Monocytes/100 WBC (Bld) 9.6 % 1.7-12.0 [facility] Neutrophils Auto (Bld) [#/Vo l]on 04-14-2024 Neutrophils (Bld) [#/Vol] 4.2 10 3/uL 1.4-6.5 [facility] Neutrophils/100 WBC Auto (Bl d)on 04-14-2024 Neutrophils/100 WBC (Bld) 58.2 % 43.0-75.0 [facility] No Panel Informationon 04-14 Eosinophils # (Auto) 0.1 10 3/uL 0.0-0.7 [facility] Immature Granulocyte # (Auto) 0.01 10 3/uL 0.00-0.03 [facility] Urine Bacteria NONE SEEN #/HPF NONE SEEN [facility] Urine Occult Blood Negative NEGATIVE [facility] Urine Other Casts NONE SEEN #/LPF NONE SEEN [facility] Urine Other Crystals None Seen #/HPF None Seen [facility] Urine RBC 0-2 #/HPF 0-2 [facility] Urine Squamous Epithelial Cells FEW #/LPF Abnormal NONE/RARE [facility] Urine WBC 0-2 #/HPF Abnormal NONE SEEN [facility] Platelet mean volume Auto (B ld) [Entitic vol]on 04-14-2024 Platelet mean volume (Bld) [Entitic vol] 10.0 fL 9.5-13.5 [facility] Platelets Auto (Bld) [#/Vol] on 04-14-2024 Platelets (Bld) [#/Vol] 241 10 3/uL 150-450 [facility] RBC Auto (Bld) [#/Vol]on RBC (Bld) [#/Vol] 4.60 10 6/uL 4.20-5.40 [facility] Serum or plasma anion gap de terminationon 04-14-2024 Anion gap [Moles/Vol] 8.6 mmol/L [facility] ECH echo transthoracicon ECH echo transthoracic [place] [id number] Echocardiogram Signed Patient: Charly Foster MR#: [id number] 1015 : 2000 Acct:[id number] Age/Sex: 23 / F ADM Date: 04/03/24 Loc: Room: Type: REG CLI Attending Dr: Kya Hoskins MD Ordering Provider: Kya Hoskins MD Date of Service: 04/03/2405/17/841 E[facility] echo transthoracic: R00.2 - Palpitations Copies to: Kya Hoskins MD Danuta Franklin DO BSA: 1.5 m2 BP: 100/78 mmHg HR: [...] mmHg RAP systole: 3.0 mmHg Transcribed By: YUEV Performed At: 04/03/24 0847 Signed By: Danuta Franklin DO 04/03/24 1445 Normal [facility] Lenka 03-01-2024 [facility]) CHARLY FOSTER ([id number]) 2000 F Date Time Provider Department 03/01/24 [facility] your visit today, we recorded the [...] Unknown Date Reviewed: 11/23/2023 Reviewed by: Evelyn Melo RN - Fully Assessed Reason for Visit: [...] Encounter Status:Closed by ANDRIA CARDONA on 03/01/24 [facility] No Panel Informationon 01-09 Human Chorionic Gonadotropin, Quant <1 mIU/mL [facility] Comment on above: 5-50 0.2-1 NWUL11-05 0 1-2 YGZDJ712-5,000 2-3 LWMYH380-66,000 3-4 WEEKS1,000-50,000 4-5 WEEKS10,000-100,000 5-6 WEEKS15,000-200,000 6-8 WEEKS10,000-100,000 2-3 MONTHS [facility] ECG *CARDIOLOGY ONLY*on 01-06-2024 [facility] ECG *CARDIOLOGY ONLY* [facility] [place] [address] Electrocardiograph Report Signed Patient: Charly Foster MR#: [id number] 1015 : 2000 Acct:[id number] Age/Sex: 23 / F ADM Date: 01/06/24 Loc: EKGCARDIO Room: Type: [facility] Attending Dr: Kya Hoskins MD Ordering Provider: [...] previous ECGs available Confirmed by Roel Tam ([id number]) on 01/10/2024 8:31:14 AM Referred By: Electronically Signed By:Roel Tam Transcribed By: MUS Signed By Roel Tam MD 01/10/24 0831 Normal [facility]2023 CNPN Telephone (NEURMM) CHARLY FOSTER ([id number]) 2000 F Date Time Provider Department 12/12/23 HUSSEIN BROWNE NEURMM During your visit today, we recorded the following information about you: Lawrence Kinsey, RN 12/12/2023 11:29 AM Signed Kandice Garcia, [employer], [place], [place] left message on nurse line for provider today with medication question regarding recent prescription for Ubrelvy 50 mg. Tablets. You sent over a prescription for 16 tablets but the medication comes in a box of 10 and we do not split boxes. I was wondering if you could change the quantity to a value of 10. Spoke to Pharmacist at [employer] who was advised that 16 is the maximum monthly tube lancer recommended dose. They have started prior authorization [...] Unknown Date Reviewed: 11/23/2023 Reviewed by: Evelyn Melo RN - Fully Assessed Reason for Visit: [...] Encounter Status:Closed by LAWRENCE KINSEY on 12/12/23 [facility]SP[facility] CHARLY FOSTER ([id number]) 2000 F Date Time Provider Department 12/12/23 [...] Unknown Date Reviewed: 11/23/2023 Reviewed by: Evelyn Melo RN - Fully Assessed Reason for Visit: Patient Question [5627] Cmt: Insurance information for medication Prescriptions as [...] Status:Closed by ANDRIA CARDONA on 12/13/23 Normal [facility] MR Pituitary and Sella turci ca WO and W contrast Olga 11-23-2023 IMPRESSION: No pituitary lesion. Adenohypophysis is within normal size limits for age and gender. Bill Peddler: ADRIÁN Transcribe Date/Time: Nov 23 2023 2:00P Dictated by : DANNIE TYLER DO This examination was interpreted and the report reviewed and electronically signed by: DANNIE TYLER DO on Nov 23 2023 2:08PM [facility] DIVISION OF RADIOLOGY * * *Final Report* * * DATE OF EXAM: Nov 23 2023 1:22PM [facility] 0314 - MRI PITUITARY WO/W IVCON [...] underlying skull base. DIVISION OF RADIOLOGY Provider, [facility] - 11/23/2023 * * *Final Report* * * DATE OF EXAM: Nov 23 2023 1:22PM [facility] 0314 - MRI PITUITARY WO/W IVCON [...] normal size limits for age and gender. Bill Peddler: ADRIÁN Transcribe Date/Time: Nov 23 2023 2:00P Dictated by : DANNIE TYLER DO This examination was interpreted and the report reviewed and electronically signed by: DANNIE TYLER DO on Nov 23 2023 2:08PM [facility] Radiology Study observation (narrative) [facility] MR Pituitary and Sella turci ca WO and W contrast IVOrdered By: Ccf Provider on 11-23-2023 [facility] MRI PITUITARY WO/W IVCONon 0 11-23-2023 MRI PITUITARY WO/W IVCON * * *Final Report* * * DATE OF EXAM: Nov 23 2023 1:22PM [facility] 0314 - MRI PITUITARY WO/W IVCON [...] normal size limits for age and gender. Bill Peddler: PSCB Transcribe Date/Time: Nov 23 2023 2:00P Dictated by : DANNIE TYLER DO This examination was interpreted and the report reviewed and electronically signed by: DANNIE TYLER DO on Nov 23 2023 2:08PM EST [id number] Normal [facility] 11-21-2023 CNPN Telephone (ENDOMN) CHARLY FOSTER ([id number]) 2000 F Date Time Provider Department 11/21/23 MONSERRAT NAVA ENDOMN During your visit today, we recorded the following information about you: Key Moore 11/21/2023 6:16 PM Signed Updated clinical notes from [facility] Date collected 10/19/23 Date scanned in chart 11/21/23 Key Meneses Senior Linux Systems Engineer II [facility] F-20 Monserrat Nava MD 12/01/2023 4:53 PM Signed These were reviewed prior to her appointment. Monserrat Nava MD., F.A.C.E. Allergies As of Date: 11/21/2023 [...] 4 - Hives VENLAFAXINE 02/15/2023 4 - Hiv Comments: Other Reaction(s): Unknown Date Reviewed: 11/18/2023 Reviewed by: Gil Salinas RN - Fully Assessed Reason for Visit: [...] Encounter Status:Closed by KEY MOORE on 11/21/23 [facility] CNOVon 11-18-2023 CNOV Office Visit (ENDPMN ) CHARLY FOSTER ([id number]) 2000 F Date Time Provider Department 11/18/23 9:00 AM MONSERRAT NAVA ENDPMN During your visit today, we recorded the following information about you: Temperature Pulse Respiration Blood pressure 97.7 degrees 104/minute 18/minute 116/83 Weight Height Last Period 49.2 kg 1.661 m 10/24/23 Monserrat Nava MD 12/19/2023 11:05 PM Signed Endocrinology/Initial Pituitary [...] 5.3 Insulin-lik (more content not included)... Normal [facility] ACTH Plas-mCncon 11-17-2023 Corticotropin (P) [Mass/Vol] 7.3 pg/mL Normal 7.2-63.3 [facility] Comment on above: Order Comment: Speci men Type: BLOOD SPECIMENOrdering Facility: [facility] Address: [address] [place] [address] Result Comment: ACTH Reference Range: 7-10 am: 7.2 - 63.3 pg/mL Performed By: #### 2 141-0 ####[facility] LABCLIA [id number] [place] [address] [place] Cortis SerPl-ncon 11-17-19 Cortisol [Mass/Vol] 13.5 ug/dL Normal 4.8-19.5 [facility] Comment on above: Order Comment: Speci men Type: BLOOD SPECIMENOrdering Facility: [facility] Address: [address] [place] [address] Result Comment: Prov ided reference range is from 6-10 AM sample collection time. Cortisol Reference Range: 6-10 AM = 4.8-19.5 ug/dL, 4-8 PM = 2.5-11.9 ug/dL Performed By: #### T 4FTI, 69309-3, 2243-4, 2143-6 ####[facility] LABCLIA [id number] [place] [address] [place] DHEA BLOODon 11-17-2023 DHEA 2.677 ng/mL Normal 1.330-7.780 [facility] Comment on above: Order Comment: Speci men Type: BLOOD SPECIMENOrdering Facility: [facility] Address: [address] [place] [address] Result Comment: INTERPRETIVE INFORMATION: Dehydroepiandrosterone, Females 18 years and older: Postmenopausal: 0.60-5.73 ng/mL REFERENCE INTERVAL: Dehydroepiandrosterone by TMS Access complete set of age- and/or gender-specific reference intervals for this test in the [employer] [facility] Test Directory (TruQC). This test was developed and its performance characteristics determined by [employer]. It has not been cleared or approved by the US Food and Drug Administration. This test was performed in a CLIA certified laboratory and is intended for clinical purposes. Performed By: [facility] [address] [place] [address] Gas Derrick Operator: Josse Gardiner MD, PhD IA Number: [id number] Performed By: #### D HEA ####[facility] [id number] [place] [address] Estradiol SerPl-mCncon 11-16 E2 [Mass/Vol] 92 pg/mL Normal [facility] Comment on above: Order Comment: Maya cordoba Type: BLOOD SPECIMENOrdering Facility: [facility] Address: [address] [place] [address] Result Comment: This test is not suitable [...] 3243 pg/mL Second trimester : 1561 to 92375 pg/mL Third trimester : 8285 to >16172 pg/mL Post-menopausal Estradiol reference range: < 41 pg/mL Reference: 1. Estradiol - E2 (Estradiol III) [package insert V 3.0 O[place]i]. [employer], [place], [place], December 2015. Performed By: #### T 4FTI, 07444-8, 2243-4, 2143-6 ####[facility] LABCLIA [id number] [facility] [id number] [address] [place] FSH SerPl-aCncon 11-17-2023 Follitropin Qn 4.6 m[IU]/mL Normal See comment [facility] Comment on above: Order Comment: Speci men Type: BLOOD SPECIMENOrdering Facility: [facility] Address: [address] [place] [address] Result Comment: Refe rence range: Follicular: 3.5-12.5 mIU/mL Ovulation: 4.7-21.5 mIU/mL Luteal: 1.7-7.7 mIU/mL Postmenopausal: 25.8-134.8 mIU/mL Performed By: #### T 4FTI, 81165-3, 2243-4, 2143-6 ####[facility] LABCLIA [id number] [place] [address] [place] INSULIN LIK GR FAC Ion 11-16 INSULIN LIK GR FAC 1 363 ng/mL High 102-317 [facility] Comment on above: Order Comment: Speci men Type: BLOOD SPECIMENOrdering Facility: [facility] Address: [address] [place] [address] Performed By: #### I LGF1 ####[facility]AMPUSIA [id number] [address] [place] LH SerPl-aCncon 11-17-2023 Lutropin Qn 5.3 m[IU]/mL Normal See comment [facility] Comment on above: Order Comment: Speci men Type: BLOOD SPECIMENOrdering Facility: [facility] Address: [address] [place] [address] Result Comment: Refe rence range: Follicular: 2.4-12.6 mIU/mL Midcycle: 14.0-95.6 mIU/mL Luteal: 1.0-11.4 mIU/mL Post Yulia: 7.7-58.5 mIU/mL Performed By: #### 3 024-7, 2842-3, 2839-9, 42013-7 ####[facility] LABCLIA [id number] [place] [address] [place] Progest SerPl-mCncon 024 Progesterone [Mass/Vol] 7.9 ng/mL Normal See comment [facility] Comment on above: Order Comment: Speci men Type: BLOOD SPECIMENOrdering Facility: [facility] Address: [address] [place] [address] Result Comment: Mens trual Cycle Progesterone Reference Ranges: Follicular: <1.0 ng/mL Ovulation: <12.1 ng/mL Luteal: 1.8 to 23.9 ng/mL. Progesterone Reference Ranges vary by gestational period: First Trimester: 11.0 to 44.3 ng/mL Second Trimester: 25.4 to 83.3 ng/mL Third Trimester: 58.7 to 214 ng/mL Post menopausal Progesterone: <0.5 ng/mL Reference: 1. Progesterone (Progesterone III) [package insert V 1.0 O[place]i]. [employer], [place], [place]. April 2015. Performed By: #### 3 024-7, 2842-3, 2839-9, 15275-7 ####[facility] LABCLIA [id number] [place] [address] [place] Prolactin SerPl-mCncon 11-16 Prolactin [Mass/Vol] 75.1 ng/mL High 4.5-26.8 [facility] Comment on above: Order Comment: Speci men Type: BLOOD SPECIMENOrdering Facility: [facility] Address: [address] [place] [address] Result Comment: Prol actin test is performed using the [employer] Electrochemiluminescence Immunoassay method. Results obtained with different methods or kits cannot be used interchangeably. Performed By: #### 3 024-7, 2842-3, 2839-9, 64991-4 ####[facility] LABCLIA [id number] [place] [address] [place] Somatostat Plas-mCncon 11-16 Somatostatin (P) [Mass/Vol] 0.13 ng/mL Normal <3.61 [facility] Comment on above: Order Comment: Speci men Type: BLOOD SPECIMENOrdering Facility: [facility] Address: [address] [place] [address] Performed By: #### 2 961-1 ####[facility] LABCLIA [id number] [place] [address] [place] T4 Free SerPl-mCncon 024 Free T4 [Mass/Vol] 1.5 ng/dL Normal 0.9-1.7 [facility] Comment on above: Order Comment: Speci men Type: BLOOD SPECIMENOrdering Facility: [facility] Address: [address] [place] [address] Performed By: #### 3 024-7, 2842-3, 2839-9, 52562-5 ####[facility] LABCLIA [id number] [place] [address] [place] T4/FTI/T4Uon 11-17-2023 FTI 7.4 ug/dL Normal 5.3-10.8 [facility] Comment on above: Order Comment: Speci men Type: BLOOD SPECIMENOrdering Facility: [facility] Address: [address] [place] [address] Performed By: #### T 4FTI, 43683-9, 2242-, 6 ####[facility] LABCLIA [id number] [place] [address] [place] T4 [Mass/Vol] 7.4 ug/dL Normal 5.5-10.2 [facility] Comment on above: Order Comment: Speci men Type: BLOOD SPECIMENOrdering Facility: [facility] Address: [address] [place] [address] Performed By: #### T 4FTI, 24678-2, 2242-, 2142-12 ####[facility] LABCLIA [id number] [place] [address] [place] T4 uptake [Mass/Vol] 1.00 Normal 0.91-1.19 [facility] Comment on above: Order Comment: Speci adalid Type: BLOOD SPECIMENOrdering Facility: [facility] Address: [address] [place] [address] [place] [address] Performed By: #### T 4FTI, 18254-2, 2243-4, 2143-6 ####[facility] LABCLIA [id number] [place] [address] [place] TSH SerPl-aCncon 11-17-2023 TSH Qn 1.760 m[IU]/L Normal 0.270-4.200 [facility] Comment on above: Order Comment: Maya cordoba Type: BLOOD SPECIMENOrdering Facility: [facility] Address: [address] [place], [place] [address] [address] Result Comment: If t he patient is , TSH reference range varies by gestational period: First Trimester (weeks 9-12): 0.180-2.990 mIU/L Second Trimester: 0.110-3.980 mIU/L Third Trimester: 0.480-4.710 mIU/L Antonio Arias et al. A Practical Approach for the Verifications and Determination of Site- and Trimester-Specific Reference Intervals for Thyroid Function tests in . Thyroid, 2019:29:3:412-420. Massimo E, et al. 2017 Guidelines of the [place] Thyroid Association for the Diagnosis and Management of Thyroid Disease during and the . Thyroid, 2017:27:3:315-389. Performed By: #### 3 016-3 ####[facility] LABCLIA [id number] [place] [address] [place] CNPRajni 11-16-2023 CNPN Telephone (NSCAMN) CHARLY FOSTER ([id number]) 2000 F Date Time Provider Department 11/16/23 MONSERRAT NAVA NSCAMN During your visit today, we recorded the following information about you: Gil Salinas RN 11/16/2023 9:41 AM Signed Call placed to Charly Foster. Discussed appointment on Tuesday with Dr. Nava. She tells me she was referred due to abnormal MRI findings. MRI is available for review in [facility]. She has not had pituitary lab work completed. Explained lab work will help have a more productive appointment. I will place orders and she can have them completed at any [facility] lab prior to 9 am. She is going to try to have them completed tomorrow morning. Instructed to refrain from sexual activity or nipple stimulation 12 hours prior to obtaining labs. Understands not to take any steroids the morning of lab work. All questions answered at this time. Gil Salinas RN Accounting Professional November 16, 2023 Allergies As of Date: 11/16/2023 (Not on File) Date Reviewed: Never Reviewed Reason for Visit: Accounting Professional - Other [3602] Primary Visit Diagnosis:Hypophysitis (HCC) [E23.6] Order(s):ESTRADIOL-17B BLD [SQE2] Order #: [id number] FUTURE PROLACTIN [SQPROL] Order #: [id number] FUTURE PROGESTERONE [SQPROG] Order #: [id number] FUTURE THYROID STIMULATING HORMONE [SQTSH] Order #: [id number] FUTURE GROWTH HORMONE [SQGH] Order #: [id number] FUTURE LUTEINIZING HORMONE [SQLH] Order #: [id number] FUTURE INSULIN LIK GR FAC I [SQILGF1] Order #: [id number] FUTURE FOLLICLE STIMULATING HORMONE [SQFSH] Order #: [id number] FUTURE T4 FREE/FREE THYROXINE [SQFT4] Order #: [id number] FUTURE CORTISOL, SERUM [SQCOR] Order #: [id number] FUTURE ACTH BLD [SQACTH] Order #: [id number] FUTURE T4/FTI/T4U [ZYM6WKI] Order #: [id number] FUTURE DHEA BLOOD [SQDHEA] Order #: [id number] FUTURE Problem List As Of Date: 11/16/2023 (None) Encounter Status:Closed by GIL SALINAS on 11/16/23 Normal [facility] [place] esophagus ugion [place] esophagus ugi [facility] [place] [address] [place] [address] Fluoroscopy Report Signed Patient: Charly Foster MR#: [id number] 1015 : 2000 Acct:[id number] Age/Sex: 23 / F ADM Date: 11/07/23 Loc: XD Room: Type: [facility] CLI Attending Dr: Reji Bailey SAL[employer] MARKET[employer] Copies to: Reji Bailey APRN Ordering Provider: Reji Bailey APRN Date of Service: 11/07/23 FL/FL esophagus ugi: R11.0 - Nausea DOUBLE CONTRAST UPPER GI SERIES CLINICAL HISTORY: Nausea, upper abdominal pain. Dysphagia. COMPARISON: None TECHNIQUE: Double contrast upper GI series was performed. Cumulative Air Kerma in mGy: 104.63 mGy FINDINGS: Room Cooler Installer image demonstrates no acute findings. No esophageal [...] Bowser Jr., D.O.11/07/2023 12:54 PM Dictation Location: [place] [address] Transcribed By: [facility] 11/07/23 1254 Dictated By: Bautista Bowser Jr, DO 11/07/23 1250 Signed By: 11/07/23 1254 Normal [facility] MR head/brain wo/w conon MR head/brain wo/w con [facility] [address] [address] MRI Report Signed Patient: Charly Foster MR#: [id number] 1015 : 2000 Acct:[id number] Age/Sex: 23 / F ADM Date: 10/27/23 Loc: MR Room: Type: [facility] CLI Attending Dr: Bentley Byrne DO Copies to: [...] Puneet Patrick M.D.10/27/2023 7:53 PM Dictation Location: [place] [address] Transcribed By: [facility] 10/27/231952 Dictated By: Puneet Patrick II, MD 10/27/231944 Signed By: 10/27/231952 Normal [facility] Basophils Auto (Bld) [#/Vol] on 10-10-2023 Basophils (Bld) [#/Vol] 0.1 10 3/uL 0.0-0.1 [facility] Basophils/100 WBC Auto (Bld) on 10-10-2023 Basophils/100 WBC (Bld) 0.5 % 0.2-2.0 [facility] Eosinophils/100 WBC Auto (Bl d)on 10-10-2023 Eosinophils/100 WBC (Bld) 0.8 % 0.9-7.0 [facility] Erythrocyte distribution wid th Auto (RBC) [Ratio]on 10-10-2023 Erythrocyte distribution width (RBC) [Ratio] 12.3 % 11.0-15.0 [facility] Estimated glomerular filtrat ion rate (GFR) non- Americanon 10-10-2023 GFR/1.73 sq M.predicted among non-blacks MDRD (S/P/Bld) [Vol rate/Area] mL/min/{1.73_m2} >=60 [facility] Hematocrit Auto (Bld) [Volum e fraction]on 10-10-2023 Hematocrit (Bld) [Volume fraction] 43.6 % 36.0-48.0 [facility] Hemoglobin [Mass/volume] in Bloodon 10-10-2023 Hemoglobin (Bld) [Mass/Vol] 15.0 g/dL 12.0-16.0 [facility] Laboratory - Chemistry and C hemistry - challengeon 10-10-2023 Calcium [Mass/Vol] 8.4 mg/dL 8.5-10.1 [facility] Chloride [Moles/Vol] 104 mmol/L 98-107 [facility] CO2 [Moles/Vol] 27.2 mmol/L 21.0-32.0 [facility] Creatinine [Mass/Vol] 0.81 mg/dL 0.55-1.02 [facility] GFR/1.73 sq M.predicted MDRD (S/P/Bld) [Vol rate/Area] mL/min/{1.73_m2} >=60 [facility] Glucose [Mass/Vol] 98 mg/dL 74-106 [facility] Potassium [Moles/Vol] 3.7 mmol/L 3.5-5.1 [facility] Sodium [Moles/Vol] 140 mmol/L 136-145 [facility] TSH Qn 0.840 m[IU]/L 0.358-3.740 [facility] Urea nitrogen [Mass/Vol] 10.0 mg/dL 7.0-18.0 [facility] Urea nitrogen/Creatinin e [Mass ratio] 12.3 mg/mg [facility] Laboratory - Hematology and Cell countson 10-10-2023 ESR (Bld) [Velocity] 4 mm/h <=20 [facility] Immature granulocytes/100 WBC (Bld) 0.1 % 0.0-0.5 [facility] Leukocytes [#/volume] correc jeri for nucleated erythrocytes in Blood by Automated counon 10-10-2023 WBC corrected for nucl RBC Auto (Bld) [#/Vol] 11.0 10 3/uL 4.0-11.0 [facility] Lymphocytes Auto (Bld) [#/Vo l]on 10-10-2023 Lymphocytes (Bld) [#/Vol] 2.0 10 3/uL 1.2-3.8 [facility] Lymphocytes/100 WBC Auto (Bl d)on 10-10-2023 Lymphocytes/100 WBC (Bld) 17.9 % 20.5-60.0 [facility] MCH Auto (RBC) [Entitic mass ]on 10-10-2023 MCH (RBC) [Entitic mass] 31.2 pg 26.7-34.0 [facility] MCHC Auto (RBC) [Mass/Vol]on 10-10-2023 MCHC (RBC) [Mass/Vol] 34.4 g/dL 29.9-35.2 [facility] MCV Auto (RBC) [Entitic vol] on 10-10-2023 MCV (RBC) [Entitic vol] 90.6 fL 81.0-99.0 [facility] Monocytes Auto (Bld) [#/Vol] on 10-10-2023 Monocytes (Bld) [#/Vol] 0.8 10 3/uL 0.3-0.8 [facility] Monocytes/100 WBC Auto (Bld) on 10-10-2023 Monocytes/100 WBC (Bld) 6.9 % 1.7-12.0 [facility] Neutrophils Auto (Bld) [#/Vo l]on 10-10-2023 Neutrophils (Bld) [#/Vol] 8.1 10 3/uL 1.4-6.5 [facility] Neutrophils/100 WBC Auto (Bl d)on 10-10-2023 Neutrophils/100 WBC (Bld) 73.8 % 43.0-75.0 [facility] No Panel Informationon 10-09 Eosinophils # (Auto) 0.1 10 3/uL 0.0-0.7 [facility] Immature Granulocyte # (Auto) 0.01 10 3/uL 0.00-0.03 [facility] Platelet mean volume Auto (B ld) [Entitic vol]on 10-10-2023 Platelet mean volume (Bld) [Entitic vol] 10.2 fL 9.5-13.5 [facility] Platelets Auto (Bld) [#/Vol] on 10-10-2023 Platelets (Bld) [#/Vol] 262 10 3/uL 150-450 [facility] RBC Auto (Bld) [#/Vol]on RBC (Bld) [#/Vol] 4.81 10 6/uL 4.20-5.40 [facility] Serum or plasma anion gap de terminationon 10-10-2023 Anion gap [Moles/Vol] 12.5 mmol/L [facility] Serum or plasma free cefurox madeline measurement (mass/volume)on 10-10-2023 Cefuroxime free [Mass/Vol] Negative Negative [facility] Comment on above: Performed at: [place] [id number] Director: Garret Bledsoe PhD, Phone: [phone] COVID + FLU Quick Testingon 07-05-2023 SARS-CoV-2 (COVID-19) RNA FRANKLIN+probe Ql (Unsp spec) Negative [facility] [employer] Other COVID + FLU Quick Testing Negative [facility] Other Test, Urineon Beta HCG ( test) Ql (U) Negative [facility] Other XR hand RT min 3V*on 023 XR hand RT min 3V* [facility] [employer] Other XR hand RT min 3V* [facility] [place] [facility] Other XR hand RT min 3V* [address] [facility] [employer] Other XR hand RT min 3V* CHRISTIAN Rodrigues [id number] [facility] Other XR hand RT min 3V* XRay Report [employer] Other XR hand RT min 3V* Signed [facility] Other XR hand RT min 3V* Patient: Milan Foster MR#: [id number] [employer] Other XR hand RT min 3V* 1015 [facility] Other XR hand RT min 3V* : 2000 Acct:[id number] [facility] Other XR hand RT min 3V* Age/Sex: 23 / F ADM Date: 06/24/23 [facility] Other XR hand RT min 3V* Loc: XDUCLY Room: Ty pe: REG CLI [facility] Other XR hand RT min 3V* Attending Dr: Adriana Stallworth [facility] Other XR hand RT min 3V* Copies to: Adriana silva [facility] Other XR hand RT min 3V* Ordering Provider: uLther Stallworth [employer] MARK[employer] Other XR hand RT min 3V* Date of Service: 06/24/23 [facility] Other XR hand RT min 3V* [id number]) XR/XR hand RT min 3V*: Injury [facility] Other XR hand RT min 3V* 3 views right hand p lucila film [facility] Other XR hand RT min 3V* COMPARISON: None [facility] Other XR hand RT min 3V* HISTORY: Right hand injury [facility] Other XR hand RT min 3V* ACUTE FINDINGS: None [facility] Other XR hand RT min 3V* DEGENERATIVE CHANGE: Unremarkable [facility] Other XR hand RT min 3V* SOFT TISSUE FINDINGS : Unremarkable [facility] Other XR hand RT min 3V* JOINT EFFUSION: None [facility] Other XR hand RT min 3V* POSTOP CHANGES: None [facility] Other XR hand RT min 3V* BONY MINERALIZATION: Adequate [facility] Other XR hand RT min 3V* X R/XR hand RT min 3V* [facility] Other XR hand RT min 3V* IMPRESSION: No acute findings [facility] Other XR hand RT min 3V* Impression dictated by: Saul Staton M.D.06/24/2023 10:17 AM [facility] Other XR hand RT min 3V* Dictation Location: [place] [address] [facility] Other XR hand RT min 3V* Transcribed By: PWS 06/24/23 1017 [facility] Other XR hand RT min 3V* Dictated By: Yung Staton DO 06/24/23 1015 [facility] Other XR hand RT min 3V* Signed By: [facility] Other XR hand RT min 3V* 06/24/23 1017 [facility] Other XR hand RT min 3V* [facility] [place] [address] [place] [id number] XRay Report Signed Patient: Charly Foster MR#: [id number] 1015 : 2000 Acct:[id number] Age/Sex: 23 / F ADM Date: 06/24/23 Loc: XDUCLY Room: Type: [facility] Attending Dr: Adriana Stallworth APRN Copies to: [...] Saul Staton M.D.06/24/2023 10:17 AM Dictation Location: [facility]--12 Transcribed By: [facility] 06/24/23 1017 Dictated By: Saul Staton DO 06/24/23 1015 Signed By: 06/24/23 1017 Normal [facility] Urinalysis - AUTOMATEDon Appearance (U) cloudy [employer] Other Bilirubin Ql (U) small [facility] Other Color (U) adriana [facility] Other Glucose Ql (U) Negative [employer] Other Hemoglobin Ql (U) large iClinical oast [employer] [place] Other Ketones Ql (U) Negative [employer] Other Leukocyte esterase Test strip Ql (U) large [facility] Other Nitrite Ql (U) Positive [employer] Other pH (U) 6.5 [pH] [facility] Other Protein Ql (U) >300 [employer] Other Specific gravity (U) [Rel density] >1.030 [facility] Other Urobilinogen (U) [Mass/Vol] 1.0 mg/dL [facility] Other Urinalysis - AUTOMATED [facility] Other Urine Cultureon 01-15-2023 Bacteria identified Cx Nom (U) [facility] Other URon 12-02-2022 , QUAL Negative Normal NEGATIVE [facility] Comment on above: Performed By: #### P REGU #### [facility] [address] [place] [address] Dr. Corie Frias XR ANKLE LT MIN [...] JES SHEIKH Date: 2022-12-02 19:47 Normal [facility] XR FOOT LT MIN 3 [...] JES SHEIKH Date: 2022-12-02 19:48 Normal [facility] COVID + FLU Quick Testingon 09-10-2022 SARS-CoV-2 (COVID-19) RNA FRANKLIN+probe Ql (Unsp spec) Negative [facility] Other COVID + FLU Quick Testing Negative [facility] Other Quick Strepon 09-10-2022 S. 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 [...] valve pr (more content not included)... Normal [facility] COVID Quick Testingon 2020 Result Negative [facility] Other Vital Signs Date Time Vital Sign Value Performing Clinician Facility 05-11-2024 08:44-0400 Body mass index (BMI) [Ratio] 18.12 kg/m2 Radha Laguna MD Work Phone: [facility] 05-11-2024 08:44-0400 Body weight 50 kg Radha Laguna MD Work Phone: [facility] 05-11-2024 08:44-0400 Diastolic blood pressure 54 mm[Hg] Radha Laguna MD Work Phone: [facility] 05-11-2024 08:44-0400 Heart rate 53 /min Radha Laguna MD Work Phone: [facility] 05-11-2024 08:44-0400 Systolic blood pressure 91 mm[Hg] Radha Laguna MD Work Phone: [facility] 04-18-2024 14:15-0400 Body height 165.1 cm MD [employer] Work Phone: [facility] 04-18-2024 14:15-0400 Body mass index (BMI) [Ratio] 17.9 kg/m2 MD [employer] Work Phone: [facility] 04-18-2024 14:15-0400 Body weight 49 kg MD [employer] Work Phone: [facility] 04-12-2024 11:44-0400 Body height 165.1 cm MD [employer] Work Phone: [facility] 04-12-2024 11:44-0400 Body mass index (BMI) [Ratio] 17.9 kg/m2 MD [employer] Work Phone: [facility] 04-12-2024 11:44-0400 Body weight 48.98 kg MD [employer] Work Phone: [facility] 04-12-2024 11:44-0400 Diastolic blood pressure 70 mm[Hg] MD [employer] Work Phone: [facility] 04-12-2024 11:44-0400 Heart rate 72 /min MD [employer] Work Phone: [facility] 04-12-2024 11:44-0400 Respiratory rate 18 /min MD [employer] Work Phone: [facility] 04-12-2024 11:44-0400 SaO2% (BldA) [Mass fraction] 96 % MD [employer] Work Phone: [facility] 04-12-2024 11:44-0400 Systolic blood pressure 108 mm[Hg] MD [employer] Work Phone: [facility] 02-15-2024 13:20-0400 Body height 165.1 cm MD [employer] Work Phone: [facility] 02-15-2024 13:20-0400 Body mass index (BMI) [Ratio] 17.8 kg/m2 MD [employer] Work Phone: [facility] 02-15-2024 13:20-0400 Body weight 48.53 kg MD [employer] Work Phone: [facility] 01-06-2024 09:35-0400 Body height 165.1 cm MD [employer] Work Phone: [facility] 01-06-2024 09:35-0400 Body mass index (BMI) [Ratio] 17.6 kg/m2 MD [employer] Work Phone: [facility] 01-06-2024 09:35-0400 Body weight 48.08 kg MD [employer] Work Phone: [facility] 01-06-2024 09:35-0400 Diastolic blood pressure 78 mm[Hg] MD [employer] Work Phone: [facility] 01-06-2024 09:35-0400 Heart rate 105 /min MD [employer] Work Phone: [facility] 01-06-2024 09:35-0400 Respiratory rate 18 /min MD [employer] Work Phone: [facility] 01-06-2024 09:35-0400 SaO2% (BldA) [Mass fraction] 98 % MD [employer] Work Phone: [facility] 01-06-2024 09:35-0400 Systolic blood pressure 100 mm[Hg] MD [employer] Work Phone: [facility] 12-05-2023 10:52-0400 Body height 165.1 cm MD [employer] Work Phone: [facility] 12-05-2023 10:52-0400 Body mass index (BMI) [Ratio] 17.9 kg/m2 MD [employer] Work Phone: [facility] 12-05-2023 10:52-0400 Body weight 48.7 kg MD [employer] Work Phone: [facility] 12-05-2023 10:52-0400 Diastolic blood pressure 73 mm[Hg] MD [employer] Work Phone: [facility] 12-05-2023 10:52-0400 Heart rate 109 /min MD [employer] Work Phone: [facility] 12-05-2023 10:52-0400 Systolic blood pressure 102 mm[Hg] MD [employer] Work Phone: [facility] 11-18-2023 09:01-0400 Body height 166.1 cm Monserrat Nava MD Work Phone: [facility] 11-18-2023 09:01-0400 Body mass index (BMI) [Ratio] 17.83 kg/m2 Monserrat Nava MD Work Phone: [facility] 11-18-2023 09:01-0400 Body temperature 97.7 [degF] Monserrat Nava MD Work Phone: [facility] 11-18-2023 09:01-0400 Body weight 49.2 kg Monserrat Nava MD Work Phone: [facility] 11-18-2023 09:01-0400 Diastolic blood pressure 83 mm[Hg] Monserrat Nava MD Work Phone: [facility] 11-18-2023 09:01-0400 Heart rate 104 /min Monserrat Nava MD Work Phone: [facility] 11-18-2023 09:01-0400 Respiratory rate 18 /min Monserrat Nava MD Work Phone: [facility] 11-18-2023 09:01-0400 SaO2% (BldA) [Mass fraction] 99 % Monserrat Nava MD Work Phone: [facility] 11-18-2023 09:01-0400 Systolic blood pressure 116 mm[Hg] Monserrat Nava MD Work Phone: [facility] 10-21-2023 09:33-0400 Body height 165.1 cm [facility] 10-21-2023 09:33-0400 Body mass index (BMI) [Ratio] 18.3 kg/m2 [facility] 10-21-2023 09:33-0400 Body weight 49.89 kg [facility] 10-10-2023 13:00-0400 Body height 165.1 cm [facility] 10-10-2023 13:00-0400 Body mass index (BMI) [Ratio] 18.1 kg/m2 [facility] 10-10-2023 13:00-0400 Body weight 49.44 kg [facility] 10-10-2023 13:00-0400 Diastolic blood pressure 78 mm[Hg] [facility] 10-10-2023 13:00-0400 Heart rate 76 /min [facility] 10-10-2023 13:00-0400 Systolic blood pressure 112 mm[Hg] [facility] 08-23-2023 11:30-0500 Body height 165.1 cm [facility] 08-23-2023 11:30-0500 Body weight 50.71 kg [facility] 08-23-2023 11:30-0500 Diastolic blood pressure 73 mm[Hg] [facility] 08-23-2023 11:30-0500 Systolic blood pressure 102 mm[Hg] [facility] 07-05-2023 18:00-0500 Body height 165.1 cm Kay Gillette Other [facility] [employer] Other 07-05-2023 18:00-0500 Body mass index (BMI) [Ratio] 19.97 kg/m2 Kay Gillette Other [facility] Other 07-05-2023 18:00-0500 Body temperature 99.1 [degF] Kay Gillette Other [facility] Other 07-05-2023 18:00-0500 Body weight 54.43 kg Kay Gillette Other [facility] Other 07-05-2023 18:00-0500 Respiratory rate 18 /min Aky Leta Other [facility] Other 07-05-2023 18:00-0500 SaO2% (BldA) [Mass fraction] 99 % Kay Leta Other [facility] Other 06-24-2023 09:45-0500 Body height 165.1 cm Adirana Stallworth Other [facility] Other 06-24-2023 09:45-0500 Body mass index (BMI) [Ratio] 20.13 kg/m2 Adriana Stallworth Other [facility] Other 06-24-2023 09:45-0500 Body temperature 97.7 [degF] Adriana Stallworth Other [facility] Other 06-24-2023 09:45-0500 Body weight 54.89 kg Adriana Stallworth Other [facility] Other 06-24-2023 09:45-0500 Respiratory rate 20 /min Adriana Stallworth Other [facility] Other 06-24-2023 09:45-0500 SaO2% (BldA) [Mass fraction] 98 % Adriana Stallworth Other [facility] Other 01-15-2023 11:40-0400 Body height 165.1 cm Kay Leta Other [facility] Other 01-15-2023 11:40-0400 Body mass index (BMI) [Ratio] 19.97 kg/m2 Kay Gillette Other [facility] Other 01-15-2023 11:40-0400 Body temperature 97.3 [degF] Kay Leta Other [facility] Other 01-15-2023 11:40-0400 Body weight 54.43 kg Kay Leta Other [facility] Other 01-15-2023 11:40-0400 Diastolic blood pressure 68 mm[Hg] Kay Leta Other [facility] Other 01-15-2023 11:40-0400 Respiratory rate 18 /min Kay Leta Other [facility] Other 01-15-2023 11:40-0400 SaO2% (BldA) [Mass fraction] 98 % Kay Leta Other [facility] Other 01-15-2023 11:40-0400 Systolic blood pressure 108 mm[Hg] Kay Leta Other [facility] Other 09-10-2022 18:40-0500 Body height 165.1 cm Kay Leta Other [facility] Other 09-10-2022 18:40-0500 Body mass index (BMI) [Ratio] 19.97 kg/m2 Kay Leta Other [facility] Other 09-10-2022 18:40-0500 Body temperature 98.7 [degF] Kay Leta Other [facility] Other 09-10-2022 18:40-0500 Body weight 54.43 kg Kay Leta Other [facility] Other 09-10-2022 18:40-0500 Respiratory rate 18 /min Kay Leta Other [facility] Other 09-10-2022 18:40-0500 SaO2% (BldA) [Mass fraction] 99 % Kay Leta Other [facility] Other 06-14-2022 17:25-0500 Body height 165.1 cm Kay Leta Other [facility] Other 06-14-2022 17:25-0500 Body mass index (BMI) [Ratio] 19.13 kg/m2 Kay Leta Other [facility] Other 06-14-2022 17:25-0500 Body temperature 100.7 [degF] Kay Leta Other [facility] Other 06-14-2022 17:25-0500 Body weight 52.16 kg Kay Leta Other [facility] Other 06-14-2022 17:25-0500 Respiratory rate 18 /min Kay Leta Other [facility] Other 06-14-2022 17:25-0500 SaO2% (BldA) [Mass fraction] 99 % Kay Leta Other [facility] Other 06-13-2021 15:30-0500 Body height 165.1 cm Adriana Martin Other [facility] Other 06-13-2021 15:30-0500 Body mass index (BMI) [Ratio] 17.47 kg/m2 Adriana Ginty Other [facility] Other 06-13-2021 15:30-0500 Body temperature 97.9 [degF] Adriana Ginty Other [facility] Other 06-13-2021 15:30-0500 Body weight 47.63 kg Adriana Ginty Other [facility] Other 06-13-2021 15:30-0500 SaO2% (BldA) [Mass fraction] 98 % Adriana Ginty Other [facility] Other 04-26-2021 14:20-0400 Body height 165.1 cm Kay Woodwardmond Other [facility] Other 04-26-2021 14:20-0400 Body mass index (BMI) [Ratio] 17.47 kg/m2 Kay Leta Other [facility] Other 04-26-2021 14:20-0400 Body temperature 98.7 [degF] Kay Leta Other [facility] Other 04-26-2021 14:20-0400 Body weight 47.63 kg Kay Leta Other [facility] Other 04-26-2021 14:20-0400 SaO2% (BldA) [Mass fraction] 98 % Kay Leta Other [facility] Other Encounters Encounter Date Encounter Type Care Provider Facility Start: 05-11-2024 End: 05-11-2024 ambulatory RADHA LAGUNA Facility:[facility] Start: 05-11-2024 End: 05-11-2024 Patient encounter procedure Radha Laguna MD Work Phone: Pain Management Comment on above: Fibromyalgia (Primar y Dx); Chronic pain syndrome Start: 04-30-2024 End: 04-30-2024 Telephone encounter Radha Laguna MD Work Phone: Pain Management Comment on above: Appointment (New pat ient call) Start: 04-27-2024 End: 04-27-2024 Patient encounter procedure 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 [facility] Start: 04-27-2024 End: 04-27-2024 ambulatory 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 [facility] Comment on above: Chronic pain syndrom e (Primary Dx) Start: 04-27-2024 End: 04-27-2024 Telemedicine consultation with patient Hussein Browne MD Work Phone: Neurology Start: 04-18-2024 End: 04-18-2024 ambulatory MD [employer] Work Phone: [facility] Work Phone: Start: 04-18-2024 End: 04-18-2024 Patient encounter procedure MD [employer] Work Phone: [facility] Gastro[facility]ology Work Phone: Start: 04-14-2024 Non-patient / Non-visit MD Becky Brothers Work Phone: [facility] [place] Work Phone: Start: 04-12-2024 End: 04-12-2024 ambulatory PRANAY CRAWFORD Not Available Start: 04-12-2024 End: 04-12-2024 ambulatory MD [employer] Work Phone: [facility] Work Phone: Start: 04-12-2024 End: 04-12-2024 Patient encounter procedure MD [employer] Work Phone: [facility] Card[facility] Work Phone: Start: 04-10-2024 End: 04-11-2024 ambulatory PRANAY KELBLEY Not Available Start: 04-03-2024 End: 04-03-2024 ambulatory PRANAY KELBLEY Not Available Start: 04-03-2024 End: 04-03-2024 Patient encounter procedure MD [employer] Work Phone: [facility]Electro[facility] Work Phone: Start: 04-03-2024 End: 04-03-2024 ambulatory MD [employer] Work Phone: [facility] Work Phone: Start: 03-29-2024 End: 03-30-2024 ambulatory PRANAY KELBLEY Not Available Start: 03-28-2024 End: 03-28-2024 ambulatory MOHAN Shanthi BLACKSTON Not Available Start: 03-20-2024 End: 03-20-2024 [...] 02-15-2024 ambulatory MD [employer] Work Phone: [facility] Work Phone: Start: 02-15-2024 End: 02-15-2024 Patient encounter procedure MD [employer] Work Phone: [facility] Work Phone: Start: 02-14-2024 End: 02-14-2024 ambulatory KEEGAN MILLER Not Available Start: 02-09-2024 End: 02-10-2024 ambulatory PRANAY CRAWFORD Not Available Start: 02-07-2024 End: 02-08-2024 ambulatory MOHAN HUFFMAN Not Available Start: 01-10-2024 ambulatory MD Monster [employer]arco Work Phone: [facility] Work Phone: Start: 01-10-2024 Non-patient / Non-visit MD Becky Brothers Work Phone: [facility] [place] Work Phone: Start: 01-06-2024 End: 01-06-2024 ambulatory MD [employer] Work Phone: [facility] Work Phone: Start: 01-06-2024 End: 01-06-2024 Patient encounter procedure MD [employer] Work Phone: [facility] Cardiology Work Phone: Start: 12-12-2023 Telephone encounter [...] status migrainosus Start: 12-09-2023 End: 12-09-2023 ambulatory MONSERRAT NAVA Facility:[facility] Start: 12-05-2023 End: 12-05-2023 ambulatory MD [employer] Work Phone: [facility] Work Phone: Start: 12-05-2023 End: 12-05-2023 Patient encounter procedure MD [employer] Work Phone: [facility] Work Phone: Start: 11-23-2023 End: 11-23-2023 ambulatory MONSERRAT NAVA Facility:[facility] Start: 11-23-2023 End: 11-23-2023 Subsequent hospital visit by physician Mri [facility] (Lg Bore/1.5t) Radiology MRI Comment on above: Abnormal brain MRI [ R90.89] Start: 11-21-2023 Telephone encounter Monserrat Sparrow MD Work Phone: Endocrinology Comment on above: Received Outside Med ical Records Start: 11-18-2023 End: 11-18-2023 ambulatory MONSERRAT NAVA Facility:[facility] Start: 11-18-2023 End: 11-18-2023 Patient encounter procedure Monserrat Nava MD Work Phone: Endocrinology Comment on above: Abnormal brain MRI ( Primary Dx); Pituitary adenoma (HCC); Elevated prolactin level; Pituitary disorder (HCC); Generalized weakness; Generalized pain; Gait instability; Generalized abdominal pain Start: 11-17-2023 End: 11-17-2023 ambulatory MONSERRAT NAVA Facility:[facility] Start: 11-16-2023 Telephone encounter Monserrat Sparrow MD Work Phone: [facility] 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 Start: 11-07-2023 End: 11-07-2023 Patient encounter procedure MD [employer] Work Phone: [facility] [place] Work Phone: Start: 11-07-2023 End: 11-07-2023 ambulatory MD [employer] Work Phone: [facility] Work Phone: Start: 10-27-2023 End: 10-27-2023 Patient encounter procedure MD [employer] Work Phone: [facility] [place] Work Phone: Start: 10-27-2023 End: 10-27-2023 ambulatory MD [employer] Work Phone: [facility] Work Phone: Start: 10-21-2023 End: 10-21-2023 ambulatory [facility] Work Phone: Start: 10-21-2023 End: 10-21-2023 Patient encounter procedure [facility] G[facility] Work Phone: Start: 10-10-2023 End: 10-10-2023 ambulatory [facility] Work Phone: Start: 10-10-2023 End: 10-10-2023 Patient encounter procedure [facility] Work Phone: Start: 08-23-2023 End: 08-23-2023 Patient encounter procedure [facility] Start: 07-05-2023 End: 07-05-2023 ambulatory Kay Gillette Other [facility] Other Start: 07-05-2023 Office outpatient vi sit 15 minutes Kay Gillette [facility] Start: 06-24-2023 Office outpatient vi sit 15 minutes Adriana Stallworth [facility] Start: 06-24-2023 End: 06-24-2023 Patient encounter [address] [facility] Work Phone: Start: 06-24-2023 End: 06-24-2023 ambulatory PHYSICIAN NO [facility] Other Start: 05-12-2023 (Televisit) Televisit Monster [facility] Start: 05-12-2023 End: 05-12-2023 ambulatory [employer] Other [facility] Other Start: 01-17-2023 End: 01-17-2023 ambulatory Kay Gillette Other [facility] Other Start: 01-17-2023 Telephone encounter Kay Gillette [facility] Start: 01-15-2023 Office outpatient vi sit 15 minutes Kaytera Gillette [facility] Start: 01-15-2023 Telephone encounter [facility] Start: 01-15-2023 End: 01-15-2023 ambulatory Kay Gillette Other [facility] Other Start: 01-15-2023 End: 01-15-2023 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 Facility:[facility] Start: 09-16-2022 (Televisit) Televisit [facility] Start: 09-16-2022 End: 09-16-2022 ambulatory [employer] Other [facility] Other Start: 09-10-2022 End: 09-10-2022 ambulatory Kay [place] Other [employer] Other Start: 09-10-2022 Office outpatient vi sit 15 minutes Kay Leta [facility] Start: 06-14-2022 End: 06-14-2022 ambulatory Kay [place] Other [facility] Other Start: 06-14-2022 Office outpatient vi sit 15 minutes Kaytera [facility] [facility] Start: 01-05-2022 End: 01-06-[address] [facility] Facility:[facility] Start: 06-13-2021 End: 06-13-2021 ambulatory Adriana Martin Other [facility] Other Start: 06-13-2021 Office outpatient vi sit 15 minutes Adriana Ginty [facility] Start: 04-26-2021 Office outpatient vi sit 15 minutes Kay [place] [facility] Start: 10-29-2020 End: 10-29-2020 Patient encounter procedure Verito Wilkerson Work Phone: [facility] Start: 10-29-2020 Results Only Veritoerika hua Work Phone: Gastroenterology Procedures Date Procedure Procedure Detail Performing Clinician Start: 11-23-2023 Mri brain brain stem w/o w/contrast material Monserrat Nava MD Work Phone: Start: 10-27-2023 MRI of head MD [employer] Work Phone: Start: 06-24-2023 Plain X-ray of right hand PHYSICIAN NO FAMILY Start: 10-29-2020 PT ED PATIENT INFORMATION Veritoerika Wilkerson Work Phone: Plan of Treatment Date Care Activity Detail Author Start: 08-13-2024 End: 08-13-2024 Patient encounter procedure 08/13/2024 3:00 PM EST Office Visit Pain Management [address] [place] [address] Nery Steven PA-C [address] [place] [address] 3 month follow up Pain Management Comment on above: 3 month follow up Start: 07-03-2024 End: 07-03-2024 Patient encounter procedure 07/03/2024 2:00 PM EST Office Visit Neurology Pain [address] [place] [address] [place] [address] [place], [place] [id number] Chronic pain syndrome [G89.4] Neurology Pain Comment on above: Chronic pain syndrome [G89.4] Start: 05-11-2024 End: 05-11-2024 Patient encounter procedure 05/11/2024 8:30 AM EDT Office Visit Pain Management [address] [place] [address] Radha Laguna MD [address] [place] [address] Chronic pain syndrome [G89.4] Pain Management Comment on above: Chronic pain syndrome [G89.4] Start: 03-25-2024 Covid-19 Vaccine () Covid-19 Vaccine () [facility] Start: 03-25-2024 Influenza vaccination [facility] Start: 01-10-[address] [facility] Work Phone: Start: 01-06-2024 [facility] Start: 12-09-2023 End: 12-09-2023 ambulatory 12/09/2023 3:00 PM EDT [facility] Neurology [address] [id number] Hussein Browne MD [address] [place], [place] [id number] Generalized weakness [R53.1]; Generalized pain [R52]; Gait instability [R26.81]; Generalized abdominal pain Neurology Comment on above: Generalized weakness [R53.1]; Generalize d pain [R52]; Gait instability [R26.81]; Generalized abdominal pain Start: 12-09-2023 End: 03-09-2024 Cobalamin (Vitamin B12) [Mass/volume] in Serum or Plasma VITAMIN B12 Lab Routine Expected: 12/09/2023, Expires: 03/09/2024 [facility] Comment on above: Expected: 12/09/2023, Expires: Start: 12-09-2023 End: 03-09-2024 Creatine kinase [Enzymatic activity/volume] in Serum or Plasma CREATINE KINASE/CK Lab Routine Expected: 12/09/2023, Expires: 03/09/2024 [facility] Work Phone: Comment on above: Expected: 12/09/2023, Expires: Start: 11-23-2023 End: 11-15-2024 Corticotropin [Mass/volume] in Plasma ACTH BLD Lab Routine Hypophysitis (FORM[facility]) Expected: 11/23/2023 (Approximate), Expires: 11/15/2024 [facility] Comment on above: Expected: 11/23/2023 (Approximate), Expi res: 11/15/2024 Start: 11-23-2023 End: 11-15-2024 Cortisol [Mass/volume] in Serum or Plasma CORTISOL, SERUM Lab Routine Hypophysitis ([facility]) Expected: 11/23/2023 (Approximate), Expires: 11/15/2024 [facility] Comment on above: Expected: 11/23/2023 (Approximate), Expi res: 11/15/2024 Start: 11-23-2023 End: 02-22-2024 Dehydroepiandrosterone (DHEA) [Mass/volume] in Serum or Plasma DHEA BLOOD Lab Routine Hypophysitis ([facility]) Expected: 11/23/2023 (Approximate), Expires: 02/22/2024 [facility] Comment on above: Expected: 11/23/2023 (Approximate), Expi res: 02/22/2024 Start: 11-23-2023 End: 11-15-2024 Estradiol (E2) [Mass/volume] in Serum or Plasma ESTRADIOL-17B BLD Lab Routine Hypophysitis ([facility]) Expected: 11/23/2023 (Approximate), Expires: 11/15/2024 [facility] Work Phone: Comment on above: Expected: 11/23/2023 (Approximate), Expi res: 11/15/2024 Start: 11-23-2023 End: 11-15-2024 Follitropin [Units/volume] in Serum or Plasma FOLLICLE STIMULATING HORMONE Lab Routine Hypophysitis ([facility]) Expected: 11/23/2023 (Approximate), Expires: 11/15/2024 [facility] Comment on above: Expected: 11/23/2023 (Approximate), Expi res: 11/15/2024 Start: 11-23-2023 End: 11-15-2024 INSULIN LIK GR FAC I INSULIN LIK GR FAC I Lab Routine Hypophysitis ([facility]) Expected: 11/23/2023 (Approximate), Expires: 11/15/2024 [facility] Comment on above: Expected: 11/23/2023 (Approximate), Expi res: 11/15/2024 Start: 11-23-2023 End: 11-15-2024 Lutropin [Units/volume] in Serum or Plasma LUTEINIZING HORMONE Lab Routine Hypophysitis ([facility]) Expected: 11/23/2023 (Approximate), Expires: 11/15/2024 [facility] Comment on above: Expected: 11/23/2023 (Approximate), Expi res: 11/15/2024 Start: 11-23-2023 End: 11-15-2024 Progesterone [Mass/volume] in Serum or Plasma PROGESTERONE Lab Routine Hypophysitis ([facility]) Expected: 11/23/2023 (Approximate), Expires: 11/15/2024 [facility] Comment on above: Expected: 11/23/2023 (Approximate), Expi res: 11/15/2024 Start: 11-23-2023 End: 11-15-2024 Prolactin [Mass/volume] in Serum or Plasma PROLACTIN Lab Routine Hypophysitis ([facility]) Expected: 11/23/2023 (Approximate), Expires: 11/15/2024 [facility] Comment on above: Expected: 11/23/2023 (Approximate), Expi res: 11/15/2024 Start: 11-23-2023 End: 11-15-2024 Somatostatin [Mass/volume] in Plasma GROWTH HORMONE Lab Routine Hypophysitis ([facility]) Expected: 11/23/2023 (Approximate), Expires: 11/15/2024 [facility] Comment on above: Expected: 11/23/2023 (Approximate), Expi res: 11/15/2024 Start: 11-23-2023 End: 11-15-2024 T4/FTI/T4U T4/FTI/T4U Lab Routine Hypophysitis ([facility]) Expected: 11/23/2023 (Approximate), Expires: 11/15/2024 [facility] Comment on above: Expected: 11/23/2023 (Approximate), Expi res: 11/15/2024 Start: 11-23-2023 End: 11-15-2024 Thyrotropin [Units/volume] in Serum or Plasma THYROID STIMULATING HORMONE Lab Routine Hypophysitis (HCC) Expected: 11/23/2023 (Approximate), Expires: 11/15/2024 [facility] Comment on above: Expected: 11/23/2023 (Approximate), Expi res: 11/15/2024 Start: 11-23-2023 End: 11-15-2024 Thyroxine (T4) free [Mass/volume] in Serum or Plasma T4 FREE/FREE THYROXINE Lab Routine Hypophysitis (HCC) Expected: 11/23/2023 (Approximate), Expires: 11/15/2024 [facility] Comment on above: Expected: 11/23/2023 (Approximate), Expi res: 11/15/2024 Start: 11-23-2023 End: 11-23-2023 Patient encounter procedure 11/23/2023 12:40 PM EDT Appointment Radiology MRI [address] [place], [place] [id number] Abnormal brain MRI [R90.89]; Pituitary adenoma (HCC) [D35.2]; Elevated prolactin level [R79.89]; Pituitary disorder (HCC) [E23.7] Radiology MRI Comment on above: Abnormal brain MRI [R90.89]; Pituitary a denoma (HCC) [D35.2]; Elevated prolactin level [R79.89]; Pituitary disorder (HCC) [E23.7] Start: 11-18-2023 End: 11-18-2023 Patient encounter procedure 11/18/2023 9:00 AM EDT Office Visit Endocrinology [address] [place] [address] Monserrat Nava MD [address] [place] [address] Pituitary Disease; pit panel ordered and pt aware Endocrinology Comment on above: Pituitary Disease; pit panel ordered and pt aware Start: 10-10-[address] [facility] Work Phone: Start: 07-25-2023 Behavioral Health Screening Behavioral Health Screening [facility] Start: 03-25-2023 Covid-19 Vaccine () Covid-19 Vaccine () [facility] Start: 03-25-2023 Covid-19 Vaccine ( season) Covid-19 Vaccine ( season) [facility] Start: 01-15-2023 Bacteria identified in Urine by Culture [facility] Start: 2020 PAP TESTING PAP TESTING [facility] Start: 2020 Screening for malignant neoplasm of cervix [facility] Start: 03-25-2020 Influenza vaccination INFLUENZA (#1) [facility] Start: 2018 Hepatitis B Vaccine (1 of 3 - 19+ 3-dose series) Hepatitis B Vaccine (1 of 3 - 19+ 3-dose series) [facility] Start: 2018 Urine microalbumin profile [facility] Start: 2017 Anxiety Screening Anxiety Screening [facility] Start: 2017 CHLAMYDIA SCREENING (18-24) CHLAMYDIA SCREENING (18-24) [facility] Start: 2017 Depression Screening Depression Screening [facility] Start: 2017 GC (GONORRHEA) SCREENING (18-24) GC (GONORRHEA) SCREENING (18-24) [facility] Start: 2017 HEPATITIS C SCREENING HEPATITIS C SCREENING [facility] Start: 2017 Hepatitis C screening Hepatitis C Screening [facility] Start: 2017 HIV SCREENING HIV SCREENING [facility] Start: 2017 HIV screening HIV Screening [facility] Start: 2015 Meningococcal B Vaccine: Consider Based On Risk (1 of 2 - Patient Seeks Protection) Meningococcal B Vaccine: Consider Based On Risk (1 of 2 - Patient Seeks Protection) [facility] Start: 2014 HPV Vaccine (1 - 3-dose series) HPV Vaccine (1 - 3-dose series) [facility] Start: 2013 Peds To Adult Transition Annual Assessment Peds To Adult Transition Annual Assessment [facility] Start: 2011 Adult depression screening assessment DEPRESSION SCREENING [facility] Start: 2011 Peds To Adult Transition Initial Discussion Peds To Adult Transition Initial Discussion [facility] Start: 2010 HPV VACCINE (1 - 2-dose series) HPV VACCINE (1 - 2-dose series) [facility] Start: 2010 Urine microalbumin profile DTaP,Tdap,Td Vaccine (6 - Tdap) [facility] Cefuroxime free [Mas s/volume] in Serum or Plasma [facility] Fluoroscopy of upper gastrointestinal tract [facility] Patient referral [facility] Work Phone: PT ED PATIENT INFORMATION PT ED PATIENT INFORMATION Other 10/29/2020 [facility] Immunizations Immunization Date Immunization Notes Care Provider Karl ashley 04-06-2017 meningococcal oligosaccharide (groups A, C, Y and W-135) diphtheria toxoid conjugate vaccine (MCV4O) [employer] Other [facility] Payers Date Payer Category Payer Private Health Insurance [employer] OAP [id number] 2023-Present [phone] [address] [place] [address] Open Access [id number] 2023 Private Health Insurance [id number] 2023 Self-pay [id number] 2023 Unknown ANTHEM BLUE ACCE SS PPO [id number] 2023-Present [phone] [address] [place] [address] PPO [id number] 2023 Blue Cross Blue Shield [id number] 2016 Unknown [employer]THEM BLUE CARD PPO [id number] 2016-Present PPO [id number] 1999 Unknown [id number] 2.16.840.1.412839.3.579.2 .593 1999 Unknown [id number] 2.16.840.1.167302.3.579.2 .593 1999 Unknown [id number] 2.16.840.1.495418.3.579.2 .1259 1999 Unknown [id number] 2.16.840.1.510773.3.579.2 .1259 1999 Unknown [id number] 2.16.840.1.248251.3.579.2 .1259 1999 Unknown [id number] 2.16.840.1.730213.3.579.2 .1259 1999 Unknown [id number] 2.16.840.1.224973.3.579.2 .1259 1999 Unknown [id number] 2.16.840.1.792086.3.579.2 .1259 1999 Unknown [id number] 2.16.840.1.994529.3.579.2 .1259 1999 Unknown [id number] 2.16.840.1.872832.3.579.2 .1259 1999 Unknown [id number] 2.16.840.1.631754.3.579.2 .1259 1999 Unknown [id number] 2.16.840.1.426807.3.579.2 .1259 1999 Unknown [id number] 2.16.840.1.902912.3.579.2 .1259 1999 Unknown [id number] 2.16.840.1.812441.3.579.2 .1259 1999 Unknown [id number] 2.16.840.1.747528.3.579.2 .1259 1999 Unknown [id number] 2.16.840.1.761431.3.579.2 .1259 1999 Unknown [id number] 2.16.840.1.637677.3.579.2 .1259 [id number] 2.16.840.1.090195.19 Private Health Insurance [facility] [id number] Unknown [id number] 2.16.840.1.525949.19 Unknown [id number] 2.16.840.1.869569.3.579.2 .531 Unknown [id number] 2.16.840.1.044373.3.579.2 .531 Unknown [id number] 2.16.840.1.167063.3.579.2 .531 Unknown [id number] 2.16.840.1.993274.3.579.2 .531 Unknown [id number] 2.16.840.1.213084.3.579.2 .531 Social History Date Type Detail Facility Tobacco smoking stat [facility] Unknown if ever smoked [facility] Start: 1999 Sex Assigned At Not on file [facility] Start: 11-28-2020 End: 11-18-2023 Sex Assigned At [facility] Start: 1999 Sex Assigned At Female F [facility] Start: 06-08-2017 End: 11-18-2023 Tobacco smoking status VTIS Never smoked tobacco (finding) [facility] Start: 10-21-2023 End: 04-12-2024 Tobacco smoking status NHIS Smoker (finding) [facility] Tobacco smoking stat [facility] Tobacco smoking consumption unknown [facility] Start: 11-28-2020 End: 11-18-2023 History of Social function [facility] National Score (1-10 0), lower number is lower risk Not on file [facility] Start: 11-18-2023 Tobacco use and exposure Smoke less tobacco non-user [facility] Start: 11-18-2023 End: 05-11-2024 Alcohol intake Current drinker of alcohol (finding) [facility] Start: 11-18-2023 Alcohol Comment rare [facility] Start: 04-25-2024 Gender identity Identifies as female gender (finding) [facility] Start: 04-25-2024 Sexual orientation Bisexual (finding ) [facility] Clinical Notes 04-26-2021 to 05-11-2024 Patient InstructionsRadha Laguna MD - 05/11/2024 8:30 AM EDTTelephone Encounter - Carlee Manzo RN - 04/30/2024 4:14 PM EDTTelephone Encounter - Carlee Manzo RN - 04/30/2024 4:14 PM EDT Note Date & Type Note Facility 05-11-2024 Instructions Radha Laguna MD - 05/11/2024 9:10 AM EDT We discussed your chronic pain: - We will start you on Lyrica, beginning with a low dose at night to minimize side effects and help with sleep. Gradually, we will increase the dosage to three times a day. We discussed your physical activity: - Begin aqua therapy at a local facility, such as the [facility] or [facility] in [place], to help manage your pain and improve mobility. - After completing aqua therapy, continue the exercises at home to maintain progress and gradually increase your activity level. We discussed your mental health: - Consider participating in the Comprehensive Pain Recovery Program, which offers a holistic approach to managing chronic pain, including diet, sleep, and activity optimization, as well as psychotherapy-based programs. - Consider reaching out to the [facility] Start by taking 25mg pregabalin at bedtime for 3-5 days. Next add a morning dose so that you're taking 25mg pregabalin at night and 25mg pregabalin in the morning for 3-5 days. Finally, add an afternoon dose, so that you're taking 25mg pregabalin three times a day. If you experience dizziness, excessive sleepiness, or excessive fatigue, slow the titration schedule so that you take 7-10 days between increasing doses. Typically these effects will go away in a few days if you can tolerate it. documented in this encounter [facility] 05-11-2024 History of Presen t illness Narrative Images from the original note were not included. [facility] Pain Management Department Consultation Date: May 11, 2024 - AM Referring physician: Hussein Browne [address] [facility] [address] Charly Foster is self referred. Chief Complaint: Patient presents with: Consult SUBJECTIVE History of Present Illness Charly Foster is a 23 year old and presents with diffuse body pain. Past medical history is significant for: No past medical history on file. Intensity of pain: 8 on a scale of 0-10. Duration of pain: 36 Years ago, with no precipitating event.. The pain is located Generalized and does not radiate . Pain Description: Continuous Sore Timing: changes in severity but always present Aggravating Factors: no change in pain symptoms with position or activity Alleviating Factors: Heat, Medication, Relaxation Interference with: physical activity and work. In the past 12 months, She completed 10 physical therapy sessions. Physical therapy is not helpful. The patient has not seen other pain providers. 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 Past pain treatment has included PT Past pain medications have included NSAIDs (advil, ibuprofen, celebrex, meloxicam, etc) She had relief from the following interventions: None She had relief from the following medications:None Review of Systems Constitutional: Positive for malaise/fatigue. Negative for chills, diaphoresis, fever and weight loss. HENT: Positive for congestion and sinus pain. Negative for ear discharge, ear pain, hearing loss, nosebleeds, sore throat and tinnitus. Eyes: Positive for blurred vision. Negative for double vision, photophobia, pain, discharge and redness. Respiratory: Positive for shortness of breath. Negative for cough, hemoptysis, sputum production, wheezing and stridor. Cardiovascular: Positive for chest pain and palpitations. Negative for orthopnea, claudication, leg swelling and PND. Gastrointestinal: Positive for abdominal pain, constipation and nausea. Negative for blood in stool, diarrhea, heartburn, melena and vomiting. Genitourinary: Negative. Musculoskeletal: Positive for back pain, joint pain, myalgias and neck pain. Negative for falls. Skin: Negative. Neurological: Positive for dizziness, tingling and headaches. Negative for tremors, sensory change, speech change, focal weakness, seizures, loss of consciousness and weakness. Endo/Heme/Allergies: Negative for environmental allergies and polydipsia. Bruises/bleeds easily. Psychiatric/Behavioral: Positive for depression and memory loss. Negative for hallucinations, substance abuse and suicidal ideas. The patient is nervous/anxious and has insomnia. OBJECTIVE Imaging Objective May 11, 2024 None Reports listed here were copy and pasted directly into the note after review of the complete report and/or the images. Those areas highlighted in red are significant and specific to today's encounter. Physical Examination Physical Exam Vitals: BP 91/54 Pulse 53 Wt 110 lb 3.7 oz (50.0kg) LMP 10/24/2023 General: Well appearing, alert, in no acute distress, well-hydrated, well nourished. and Thin Mental Status: Alert and Oriented x3. Speech is quiet. Affect: sad Skin: Skin color, texture, turgor normal, no suspicious rashes or lesions HEENT: Pupils equal, round, reactive to light. Not pinpoint. Pulmonary: Breathing easily without tachypnea or bradypnea. Cardiac: No LE edema. Abdomen: soft, not distended Ambulation: Gait is normal. Patient ambulates, unassisted. Neuro/Musculoskeletal: Diffuse tenderness to light palpation throughout - rest of exam deferred secondary to pain reproduced Patient denies any red flag symptoms such as bowel/bladder dysfunction or sudden weakness. Assessment & Plan Assessment & Plan May 11, 2024 The primary encounter diagnosis was Fibromyalgia. A diagnosis of Chronic pain syndrome was also pertinent to this visit. The patient is a 23-year-old female presenting with diffuse pain. The patient reports experiencing diffuse pain for several years, with significant worsening over the past year. She describes the pain as constant and affecting her entire body, stating, Where isn't my pain is a better question. The pain is exacerbated by both excessive movement and prolonged inactivity. She attempts to walk daily but notes that the pain's intensity varies unpredictably. She has tried ibuprofen, naproxen, and Tylenol without relief, finding only marijuana to be effective in managing her pain. The patient recalls a pivotal episode in 2020 while attending college, during which she nearly collapsed, experienced stuttering, and had heart palpitations. She believes this event marked the beginning of her health's decline. She has since been evaluated by a special events planner closer to home who suggested a diagnosis of fibromyalgia after ruling out autoimmune disorders. She reports feeling dismissed by the special events planner, who recommended lifestyle changes such as water aerobics and dietary improvements, but did not prescribe medication. She has not sought a second opinion from another special events planner. In addition to diffuse pain, the patient reports significant fatigue and sleep disturbances. # Chronic pain syndrome (G89.4) # Fibromyalgia (M79.7) Generalized pain with tenderness to palpation in all areas. Negative rheumatologic and autoimmune workup by special events planner in [place]. Symptoms include fatigue, sleep disturbances, brain fog, and memory issues. Pain is exacerbated by both movement and inactivity. Previous treatments with ibuprofen, naproxen, and acetaminophen were ineffective; marijuana provided some relief. - Initiated Lyrica, starting with a low dose at night to mitigate potential sedation, with a gradual increase to TID. - Recommended aquatherapy at a local facility with a heated pool to facilitate movement and strength building. - Provided information on the Comprehensive Pain Recovery Program, including the Intensive Outpatient Program, which offers a holistic approach to pain management, including diet, sleep, and activity optimization, as well as ketamine infusions and psychotherapy-based programs. - Referral to Wellness Center placed - Patient discussed hypermobility and wish to undergo genetic testing for EDS - referral placed to Genetics - Discussed the importance of continued exercise post-physical therapy to maintain and improve physical function. - Patient and family understand and agree with the treatment plan. - Follow up in 3 months The above plan and management options were discussed with patient. The patient is in agreement with the above and verbalized understanding. Radha Laguna MD Electronic signature This office note has been dictated and may contain minor typographic errors that escaped review. I have confirmed and edited as necessary, the PFSH and ROS obtained by others. Relevant History from the Electronic Medical Record Questionnaires: Patient Entered Questionnaires PROMIS Score Percentiles 12/07/2023 04/27/2024 Physical Health Physical Function Percentile 5 4 Pain Interference Percentile 1 2 12/07/2023 04/27/2024 PROMIS Global Health Scale Physical Health Percentile 1 2 Mental Health Percentile 1 2 Percentiles provide an indication of how the patient's score ranks in relation to the general population. Higher percentile rankings indicate better function/quality of life. 50th percentile is the average of the general population and indicates half of respondents had a worse score. Depression Screenin12/07/2023 04/27/2024 PHQ-9 Score 19 20 04/27/2024 12/07/2023 PHQ-9 Self Harm Question 9 Several days More than half the days PHQ-9 Self-Harm (Item 9) response options: 0 Not at all 1 Several days 2 More than half the days 3 Nearly every day PHQ-9 Levels: 0-4 Minimal depression 5-9 Mild depression 10-14 Moderate depression 15-19 Moderately severe depression 20-27 Severe depression PHQ-9 Score 04/27/2024 20 12/07/2023 19 (0-4) minimal depression, (5-9) mild depression, (10-14) moderate depression, (15-19) moderately severe depression, (20-27) severe depression No data to display No data to display ALLERGIES Allergen Reactions Codeine Hives, Other: See Comments confusion Other Reaction(s): Unknown confusion Atenolol Hives Cefuroxime Hives Ciprofloxacin GI Upset Other Reaction(s): Unknown Corticosteroids (Gl* Hives Metoclopramide Hives Other Reaction(s): Unknown Rizatriptan Hives Other Reaction(s): Unknown Sulfamethoxazole Hives Trimethoprim Hives Venlafaxine Hives Other Reaction(s): Unknown Current Medications: metoprolol succinate ER (TOPROL XL) 25 mg 24 hr tablet Take 25 mg by mouth two times a day. busPIRone (BUSPAR) 10 mg tablet Take 1 tablet by mouth every 12 hours. ondansetron orally disintegrating (ZOFRAN ODT) 4 mg disintegrating tablet DISSOLVE 1 (ONE) TABLET ON THE TONGUE EVERY 8 HOURS NEEDED FOR NAUSEA AND VOMITING pregabalin (LYRICA) 25 mg capsule Take 1 capsule by mouth three times a day for 90 days. ubrogepant (UBRELVY) 50 mg tablet Take 1 tablet by mouth as needed (migraine headache). No past medical history on file. No past surgical history on file. No family history on file. Social History: Alcohol Use: Yes (rare) Tobacco Use: Never Drug Use: Never Employer And Job Title: None on file Years Of Education Completed: Not specified Marital Status: Medical Decision Making The [facility] EMR was reviewed during the visit including: Problem List, Past Medical History, Past Surgical History, Medications, Allergies, Encounters with other providers and associated notes, Imaging, Labs, and Care Everywhere for OSH records Notes and tests identified as copied and pasted above were directly placed into the frame of this note and are pertinent to my medical decision making. OARRS: PDMP website checked and validated and is consistent with medication report. *Information in italics was copied from the shared EMR Medical Decision Making: Problems: Moderate: 2+ stable chronic illnesses Data: Unique source(s) for external note(s) reviewed: 1 Risk: Moderate: Drug management Medical Decision Making Level: 4 - Moderate documented in this encounter [facility] 05-11-2024 Note HNO ID: [id number] Author: RADHA LAGUNA MD Service: ? Author Type: Physician Type: Progress Notes Filed: 05/11/2024 09:22 Note Text: [facility] Pain Management Department Consultation Date: May 11, 2024 - AM Referring physician: Hussein Browne [address] [facility] [address] Charly Foster is self referred. Chief Complaint: Patient presents with: Consult SUBJECTIVE History of Present Illness Charly Foster is a 23 year old and presents with diffuse body pain. Past medical history is significant for: No past medical history on file. Intensity of pain: 8 on a scale of 0-10. Duration of pain: 36 Years ago, with no precipitating event.. The pain is located Generalized and does not radiate . Pain Description: Continuous Sore Timing: changes in severity but always present Aggravating Factors: no change in pain symptoms with position or activity Alleviating Factors: Heat, Medication, Relaxation Interference with: physical activity and work. In the past 12 months, She completed 10 physical therapy sessions. Physical therapy is not helpful. The patient has not seen other pain providers. 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 Past pain treatment has included PT Past pain medications have included NSAIDs (advil, ibuprofen, celebrex, meloxicam, etc) She had relief from the following interventions: None She had relief from the following medications:None Review of Systems Constitutional: Positive for malaise/fatigue. Negative for chills, diaphoresis, fever and weight loss. HENT: Positive for congestion and sinus pain. Negative for ear discharge, ear pain, hearing loss, nosebleeds, sore throat and tinnitus. Eyes: Positive for blurred vision. Negative for double vision, photophobia, pain, discharge and redness. Respiratory: Positive for shortness of breath. Negative for cough, hemoptysis, sputum production, wheezing and stridor. Cardiovascular: Positive for chest pain and palpitations. Negative for orthopnea, claudication, leg swelling and PND. Gastrointestinal: Positive for abdominal pain, constipation and nausea. Negative for blood in stool, diarrhea, heartburn, melena and vomiting. Genitourinary: Negative. Musculoskeletal: Positive for back pain, joint pain, myalgias and neck pain. Negative for falls. Skin: Negative. Neurological: Positive for dizziness, tingling and headaches. Negative for tremors, sensory change, speech change, focal weakness, seizures, loss of consciousness and weakness. Endo/Heme/Allergies: Negative for environmental allergies and polydipsia. Bruises/bleeds easily. Psychiatric/Behavioral: Positive for depression and memory loss. Negative for hallucinations, substance abuse and suicidal ideas. The patient is nervous/anxious and has insomnia. OBJECTIVE Imaging Objective May 11, 2024 None Reports listed here were copy and pasted directly into the note after review of the complete report and/or the images. Those areas highlighted in red are significant and specific to today's encounter. Physical Examination Physical Exam Vitals: BP 91/54 Pulse 53 Wt 110 lb 3.7 oz (50.0kg) LMP 10/24/2023 General: Well appearing, alert, in no acute distress, well-hydrated, well nourished. and Thin Mental Status: Alert and Oriented x3. Speech is quiet. Affect: sad Skin: Skin color, texture, turgor normal, no suspicious rashes or lesions HEENT: Pupils equal, round, reactive to light. Not pinpoint. Pulmonary: Breathing easily without tachypnea or bradypnea. Cardiac: No LE edema. Abdomen: soft, not distended Ambulation: Gait is normal. Patient ambulates, unassisted. Neuro/Musculoskeletal: Diffuse tenderness to light palpation throughout - rest of exam deferred secondary to pain reproduced Patient denies any red flag symptoms such as bowel/bladder dysfunction or sudden weakness. Assessment AND Plan Assessment AND Plan May 11, 2024 The primary encounter diagnosis was Fibromyalgia. A diagnosis of Chronic pain syndrome was also pertinent to this visit. The patient is a 23-year-ol (more content not included)... [facility] 04-30-2024 Telephone encount er Note New patient information sent via my chart [facility] 04-30-2024 Miscellaneous Notes Formattin g of this note might be different from the original. New patient information sent via my chart documented in this encounter [facility] 04-27-2024 Note HNO ID: [id number] Author: ?, ?, ? Service: ? Author Type: ? Type: Progress Notes Filed: 04/27/2024 15:45 Note Text: POPULATION HEALTH NAVIGATION OUTREACH Action/FYI [place] Support: Called pt to schedule an appt in Pain Management. Lvm for pt to call [phone] for scheduling. Reason for Outreach Care Gap/HCC or Scheduling Wellness Visits Care Gaps due: N/A Patient Contacted: Unable or unnecessary to reach patient: Left message Navigation Signature: Ana Mino Grullon April 27, 2024 3:45 PM [facility] 04-27-2024 History of Presen t illness Narrative POPULATION HEALTH NAVIGATION OUTREACH Action/FYI [place] Support: Called pt to schedule an appt in Pain Management. Lvm for pt to call [phone] for scheduling. Reason for Outreach Care Gap/HCC or Scheduling Wellness Visits Care Gaps due: N/A Patient Contacted: Unable or unnecessary to reach patient: Left message Navigation Signature: Ana Herzog April 27, 2024 3:45 PM documented in this encounter [facility] 04-27-2024 Note HNO ID: [id number] Author: HUSSEIN BROWNE MD Service: ? Author Type: Physician Type: Progress Notes Filed: 04/27/2024 22:58 Note Text: Interval history Patient came today to request referral to pain clinic Previously referred to pain clinic for chronic pain she was diagnosed with fibromyalgia ,but her special events planner Doesn't treat fibromyalgia Tried physical therapy and supplements Pain is disabling her that she cannot work and is pain all over shoulders neck back legs Difficulty sleeping because of pain ,CBD effective I have communicated my name and active licensure. The patient's identity and physical location were verified at the time of this visit. 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 No past surgical history on file. No family history on file. Social History Tobacco Use Smoking status: Never Smokeless tobacco: Never Vaping Use Vaping status: current everyday user Substances: Nicotine Devices: Disposable Substance Use Topics Alcohol use: Yes Comment: rare Drug use: Never Current Outpatient Medications Medication Sig ubrogepant (UBRELVY) [...] no distress and well-hydrated, well nourished ASSESSMENT: (G89.4) Chronic pain syndrome (primary encounter diagnosis) PLAN: [facility] on 04/27/24 CONSULT TO PAIN MGT There are no Patient Instructions on file for this visit. 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 The patient's identity and physical location were verified at the time of this visit. 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 No past surgical history on file. No family history on file. Social History Tobacco Use Smoking status: Never Smokeless tobacco: Never Vaping Use Vaping status: current everyday user Substances: Nicotine Devices: Disposable Substance Use Topics Alcohol use: Yes Comment: rare Drug use: Never Current Outpatient Medications Medication Sig ubrogepant (UBRELVY) [...] no distress and well-hydrated, well nourished ASSESSMENT: (G89.4) Chronic pain syndrome (primary encounter diagnosis) PLAN: [facility] on 04/27/24 CONSULT TO PAIN MGT There are no Patient Instructions on file for this visit. I spent a total of 60 minutes on the date of the service which included preparing to see the patient, [id number] patient care, counseling and educating the patient/family/caregiver, [...] study not recommended) documented in this encounter [facility] 04-27-2024 Note Patient Outreach (NE TNAV) CHARLY FOSTER ([id number]) 2000 F Date Time Provider Department 04/27/24 NO PCP NETNAV During your visit today, we recorded the following information about you: Ana Pryor 04/27/2024 3:45 PM Signed POPULATION HEALTH NAVIGATION OUTREACH Action/[facility] Support: Called pt to schedule an appt in Pain Management. m for pt to call [phone] for scheduling. Reason for Outreach Care Gap/HCC or Scheduling Wellness Visits Care Gaps due: N/A Patient Contacted: Unable or unnecessary to reach patient: Left message Navigation Signature: Ana Grullon April 27, 2024 3:45 PM Allergies As of Date: 04/27/2024 Noted Allergy Reaction CODEINE 09/19/2014 4 - [...] Unknown Date Reviewed: 11/23/2023 Reviewed by: Evelyn Melo RN - Fully Assessed Prescriptions as of 04/27/2024 - ubrogepant (UBRELVY) 50 mg tablet Take 1 tablet by mouth as needed (migraine headache). - busPIRone (BUSPAR) 10 mg tablet Take 1 tablet by mouth every 12 hours. - ondansetron orally disintegrating (ZOFRAN ODT) 4 mg disintegrating tablet DISSOLVE 1 (ONE) TABLET ON THE TONGUE EVERY 8 HOURS NEEDED FOR NAUSEA AND VOMITING Problem List As Of Date 04/27/2024 Noted Resolved Elevated prolactin level [R79.89] 12/19/2023 Encounter Status:Closed by ANA PRYOR on 04/27/24 [facility] 03-01-2024 Telephone encount er Note Left voice mail to call office regarding ins. Information for Ubrelvy 50 mg. Cover my meds states she has no coverage under insurance. Need updated insurance information to submit prior auth [facility] 03-01-2024 Miscellaneous Notes Formattin g of this note might be different from the original. Left voice mail to call office regarding ins. Information for Ubrelvy 50 mg. Cover my meds states she has no coverage under insurance. Need updated insurance information to submit prior auth documented in this encounter [facility] 02-15-2024 Evaluation note Authored February 15, 2024 1:55pm Patient remains positive for intermittent dysphagia/esophageal spasm, patient dyspepsia also improved but intermittently present. Patient has noted some improvement with MiraLAX dosing however patient does require stronger medication patient given prescription for Trulance once daily. Patient positive for occasional abdominal pain [facility] Work Phone: 1(387) 490-197106-18-2024 Hospital Discharge instructionsAmbulatory Orders* Referral to Rheumatology Time Frame: 01/10/24, Location: None Selected [facility] Work Phone: 1(878) 111-236905-20-2024 Telephone encounter Note* Telephone Encounter - Andria Cardona MA - 12/12/2023 1:17 PM EDT Left vm to call office with current RX insurance information for Ubrelvy 50mg . Prior auth is needed for medication [facility]05-20-2024 Miscellaneous Notes* Telephone Encounter - Andria Cardona MA - 12/12/2023 1:17 PM EDT Left vm to call office with current RX insurance information for Ubrelvy 50mg . Prior auth is needed for medication [facility] Telephone encounter Note * Telephone Encounter - Lawrence Kinsey RN - 12/12/2023 11:06 AM EDT Kandice Garcia, [facility], [place], [place] left message on nurse line for provider today with medication question regarding recent prescription for Ubrelvy 50 mg. Tablets. You sent over a prescription for 16 tablets but the medication comes in a box of 10 and we do not split boxes. I was wondering if you could change the quantity to a value of 10. Spoke to Pharmacist at [facility] who was advised that 16 is the maximum monthly tube lancer recommended dose. They have started prior authorization and will see what insurance companies authorizes. She stated it is a preference of their pharmacy to not split boxes but they will wait to see what insurance companies recommends. Will call back with any questions or concerns. [facility]05-20-2024 Miscellaneous Notes* Telephone Encounter - Lawrence Kinsey RN - 12/12/2023 11:06 AM EDT Kandice Garcia, [facility], [place] left message on nurse line for provider today with medication question regarding recent prescription for Ubrelvy 50 mg. Tablets. You sent over a prescription for 16 tablets but the medication comes in a box of 10 and we do not split boxes. I was wondering if you could change the quantity to a value of 10. Spoke to Pharmacist at [facility] who was advised that 16 is the maximum monthly tube lancer recommended dose. They have started prior authorization and will see what insurance companies authorizes. She stated it is a preference of their pharmacy to not split boxes but they will wait to see what insurance companies recommends. Will call back with any questions or concerns. [facility]24 NoteHNO ID: [id number] Author: HUSSEIN BROWNE MD Service: ? Author Type: Physician Type: Progress Notes Filed: 01/04/2024 23:19 Note Text: VIRTUAL VISIT PROGRESS NOTE This is a virtual visit using [employer] Zoom Video Visit. It required patient-provider interaction for the medical decision making as documented below. I have communicated my name and active licensure. The patient's identity and physical location were verified at the time of this visit. 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 I spent a total of 60 minutes on the date of the service which included preparing to see the patient, [id number] patient care, counseling and educating the patient/family/caregiver, [...] Apnea Probability Score: 3 (Sleep study not recommended)[facility]05-[facility] History of Present illness Narrative* Hussein Browne MD - 12/09/2023 2:52 PM EDT VIRTUAL VISIT PROGRESS NOTE This is a virtual visit using [employer] Zoom Video Visit. It required patient- provider interaction for the medical decision making as documented below. I have communicated my name and active licensure. The patient's identity and physical location wereverified at the time of this visit. 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 I spent a total of 60 minutes on the date of the service which included preparing to see the patient, [id number] patient care, counseling and educating the patient/family/caregiver, [...] (Sleep study not recommended) [facility] History of Present illness Narrative* Evelyn Melo RN - 11/23/2023 12:40 PM EDT Radiology [...] SITE APPEARANCE: Clean,Dry and Intact SIGNATURE: Evelyn Melo RN PATIENT NAME: Charly Foster DATE: November [...] PATIENT PRESENTS WITH AN IMPLANTABLE OR ATTACHED ADMINISTRATIVE OFFICE SPECIALIST: No RADIOLOGY DEPARTMENT: MR; Exam(s) Completed: Head: Pituitary PERIPHERAL IV DATA: Site assessment: Clean,Dry and Intact, Site disposition Discontinued SIGNED BY: ELIO Brennan) November 23, 2023 12:56 PM documented in [facility]24 NoteHNO ID: [id number] Author: EVELYN MELO RN Service: Nursing Author Type: Registered Nurse [...] SITE APPEARANCE: Clean,Dry and Intact SIGNATURE: Evelyn Melo RN PATIENT NAME: Charly Foster DATE: November 23, 2023 TIME: 12:41 [facility]05-01-2024 NoteHNO ID: [id number] Author: MOHAN THOMAS RT(Nahun) Service: Radiology Author [...] PATIENT PRESENTS WITH AN IMPLANTABLE OR ATTACHED ADMINISTRATIVE OFFICE SPECIALIST: No RADIOLOGY DEPARTMENT: MR; Exam(s) Completed: Head: Pituitary PERIPHERAL IV DATA: Site assessment: Clean,Dry and Intact, Site disposition Discontinued SIGNED BY: RT Anu(R) November 23, 2023 12:56 [facility]04-29-2024 Telephone encounter Note* Telephone Encounter - Key Moore - 11/21/2023 6:13 PM EDT Updated clinical notes from [facility] Date collected 10/19/23 Date scanned in chart 11/21/23 Key Meneses Senior [employer] Systems Engineer [facility] F-20 [facility]04-29-2024 Miscellaneous Notes* Telephone Encounter - Key Moore - 11/21/2023 6:13 PM EDT Updated clinical notes from [facility] Date collected 10/19/23 Date scanned in chart 11/21/23 Key Meneses 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 Consult to IM and internal medicine to address other symptoms. Monserrat Nava MD., F.A.C.E. documented in this encounterSam[facility]04-[facility] Nurse Note* Tatiana Farris MA - 11/18/2023 9:00 AM EDT Additional intake questions: Has the patient had fever, nausea, vomiting, diarrhea, constipation, fatigue for > 1 week? Yes, nausea, fatigue, and Provider Notified Does the patient have a decreased appetite? Yes Does patient want to see a Chef? No (yes to any of above refer patient to schedulers for dietitian appointment) ) Does patient have any new or increased numbness or tingling of extremities? Yes, numbness in both hands. Is patient interested in fertility information? No Does patient need any prescription refills? No Does patient have an advanced directive in place? No, Patient referred to [facility]04-26-2024 History of Present illness Narrative* Monserrat Nava MD - 11/18/2023 9:00 AM EDT Images [...] which included preparing to see the patient, [id number]-[id number] patient care, completing clinical documentation, obtaining and/or reviewing separately obtained history, performing a medically appropriate examination, counseling and educating the pat ient/family/caregiver, ordering medications, tests, or procedures, communicating with other HCPs (not separately reported), independently interpreting results (not separately reported), communicatingresults to the patient/family/caregiver and care coordination (not separately reported). SIGNATURE: Monserrat Nava MD DATE of SERVICE: November 18, 2023 TIME of SERVICE: 6:07 AM [facility] NoteHNO ID: [id number] Author: MONSERRAT NAVA MD Service: ? Author Type: Physician Type: [...] J - 10/27/2023 ASSESSMENT/P (more content not included)...[facility]04-26-2024 Nurse Note* Tatiana Farris MA - 11/18/2023 9:00 AM EDT Additional intake questions: Has the patient had fever, nausea, vomiting, diarrhea, constipation, fatigue for > 1 week? Yes, nausea, fatigue, and Provider Notified Does the patient have a decreased appetite? Yes Does patient want to see a Chef? No (yes to any of above refer patient to schedulers for dietitian appointment) ) Does patient have any new or increased numbness or tingling of extremities? Yes, numbness in both hands. Is patient interested in fertility information? No Does patient need any prescription refills? No Does patient have an advanced directive in place? No, Patient referred to [facility] Telephone encounter Note * Telephone Encounter - Gil Salinas RN - 11/16/2023 9:22 AM EDT Call placed to Charly Foster. Discussed appointment on Tuesday with Dr. Nava. She tells me she was referred due to abnormal MRI findings. MRI is available for review in [facility]. She has not had pituitary lab work completed. Explained lab work will help have a more productive appointment. I will place orders and she can have them completed at any [facility] lab prior to 9 am. She is going to try to have them completed tomorrow morning. Instructed to refrain from sexual activity or nipple stimulation 12 hours prior to obtaining labs. Understands not to take any steroids the morning of lab work. All questions answered at this time. Gil Salinas RN Accounting Professional November 16, 2023 [facility]04-24[facility] Miscellaneous Notes* Telephone Encounter - Gil Salinas RN - 11/16/2023 9:22 AM EDT Call placed to Charly Foster. Discussed appointment on Tuesday with Dr. Nava. She tells me she was referred due to abnormal MRI findings. MRI is available for review in [facility]. She has not had pituitary lab work completed. Explained lab work will help have a more productive appointment. I will place orders and she can have them completed at any [facility] lab prior to 9 am. She is going to try to have them completed tomorrow morning. Instructed to refrain from sexual activity or nipple stimulation 12 hours prior to obtaining labs. Understands not to take any steroids the morning of lab work. All questions answered at this time. Gil Salinas RN Accounting Professional November 16, 2023 documented [facility]12-[facility]23 Evaluation note* Encounter Date Diagnosis Assessment Notes [...] Suspected COVID-19 virus infection (ICD-10 - Z20.822) [facility] Other 12-01-2023 Evaluation note* Encounter Date Diagnosis [...] aware. Advised follow above treatment plan recommendations [facility] Other 10-19-2023 Evaluation note* Encounter Date Diagnosis Assessment Notes Treatment Notes Treatment Clinical Notes Apr, Acute non-recurrent maxillary sinusitis (ICD-10 - J01.00) Take medication as prescribed. Humidification, saline nose spray, Neti pot suggested for sinus relief. OTC acetaminophen/ibup rofen for pain. May continue OTC decongestants/anti histamines. [facility] Other 06-24-2023 Evaluation note* Encounter Date Diagnosis [...] no improvement in 2 to 3 days. [facility] Other 02-23-2023 Evaluation note* Encounter Date Diagnosis [...] even if you start to feel better. [facility] Other 02-17-2023 Evaluation note* Encounter Date Diagnosis [...] of diseases classified elsewhere (ICD-10 - B96.89) [facility] Other 11-21-2022 Evaluation note* Encounter Date Diagnosis [...] of diseases classified elsewhere (ICD-10 - B96.89) [facility] Other 06-14-2022 NotePROCEDURE: XR ANKLE LT MIN [...] Electronically authenticated by: GREGORY KLEIN Date: 2022-01-05 16:37[facility]06-14-2022 NotePROCEDURE: XR ANKLE LT MIN [...] Electronically authenticated by: GREGORY KLEIN Date: 2022-01-05 16:37[facility]11-20-2021 Evaluation note* Encounter Date Diagnosis [...] Patient care instructions given in writting by [facility] document [facility] Other 10-03-2021 Evaluation note* Encounter Date Diagnosis [...] Patient care instructions given in writting by [facility] document. [facility] Other Evaluation noteNo assessment information available [facility] Work Phone: Evaluation noteNo InformationNortLifecare [facility] [employer] Other Evaluation note* Diagnosis Onset Date Resolution Status Fatigue acute Mitral valve disorder acute Nausea & vomiting acute [facility] Work Phone: Evaluation note* Diagnosis Onset Date Resolution Status Chronic constipation acute Fatigue acute Migraine acute Mitral valve disorder acute Nausea & vomiting acute Staring episodes acute Constipation acute Nausea acute Dyspepsia noneactive Celiac disease noneactive [facility] Work Phone: Evaluation note* Diagnosis 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 [facility] Diagnosis Abnormal brain MRI Nonspecific (abnormal) findings on radiological and other examination of skull and head Pituitary adenoma (HCC) Benign neoplasm of pituitary gland and craniopharyngeal duct (pouch) Elevated prolactin level Unspecified endocrine disorder Pituitary disorder (HCC) Unspecified disorder of the pituitary gland and its hypothalamic control [facility] Diagnosis Abnormal brain MRI- [...] its hypothalamic control documented in this encounter [facility] note* Diagnosis Generalized weakness- Primary Other malaise and fatigue Generalized pain Gait instability Abnormality of gait Generalized abdominal pain Abdominal pain, generalized Intractable migraine with aura without status migrainosus Migraine with aura, with intractable migraine, so stated, without mention of status migrainosus documented [facility] this [facility]* Diagnosis Onset Date Resolution Status Chronic constipation acute Fatigue acute Migraine acute Mitral valve disorder acute Nausea & vomiting acute Staring episodes acute Dyspepsia noneactive Celiac disease noneactive Chronic constipation acute Migraine acute Mitral valve disorder acute Staring episodes acute Mitral valve disorder acute Palpitations acute [facility] Work Phone: Evaluation note* Diagnosis Onset Date Resolution Status Dyspepsia noneactive Celiac disease noneactive Chronic constipation acute Migraine acute Mitral valve disorder acute Staring episodes acute Mitral valve disorder acute Palpitations acute [facility] Work Phone: Evaluation note* Diagnosis Onset Date Resolution Status Chronic constipation acute Migraine acute Mitral valve disorder acute Staring episodes acute Mitral valve disorder acute Palpitations acute [facility] Work Phone: Evaluation note* Diagnosis Chronic pain syndrome- Primary documented in this encounter [facility] note* Diagnosis Fibromyalgia- Primary Mylagia and myositis, unspecified Chronic pain syndrome documented in this encounter [facility] general Narrative - Reported* Type Description Date Medical History concaved chest Medical History acne Medical History Mitral valve prolapse Medical History anxiety Medical History chronic depression Medical History migraine headache Medical History auto immune disorder unsure of n [place] Surgical History laparoscopy Hospitalization History see above [facility] Other History general Narrative - Reported* Type Description Date Medical History concaved chest Medical History acne Medical History Mitral valve prolapse Medical History anxiety Medical History chronic depression Medical History migraine headache Medical History urticaria Surgical History laparoscopy Hospitalization History see above [facility] Other [facility] general Narrative - Reported* Type Description Date Medical History concaved chest Medical History acne Medical History Mitral valve prolapse Medical History anxiety Medical History chronic depression Medical History migraine headache Medical History urticaria Surgical History laparoscopy Surgical History repair ankle tendon Hospitalization History see above [facility] Other [employer] general Narrative - Reported* Type Description Date Medical History concaved chest Medical History acne Medical History Mitral valve prolapse Medical History anxiety Medical History chronic depression Medical History migraine headache Medical History urticaria Medical History PCOS Surgical History laparoscopy Surgical History repair ankle tendon Hospitalization History see above [facility] Other Summary Purpose Family History No Family [...] BROTHERS CONSTIPATION, NAUSEA & VOMITING r27.0 r11.0 [facility] f/u, pain Reason for Visit Chronic constipation Fatigue Migraine Mitral valve disorder Nausea & vomiting Staring episodes Constipation Nausea Dyspepsia Celiac disease Chief Complaint Check up REF BY DR. BROTHERS CONSTIPATION, NAUSEA & VOMITING r27.0 r11.0 [facility] f/u, pain Rheumatic Mitral Valve Disease Reason for Visit Chronic constipation Fatigue Migraine Mitral valve disorder Nausea & vomiting Staring episodes Dyspepsia Celiac disease Chronic constipation Migraine Mitral valve disorder Staring episodes Mitral valve disorder Palpitations Chief Complaint REF BY DR. BROTHERS CON STIPATION, NAUSEA & VOMITING r27.0 r11.0 [facility] f/u, pain Rheumatic Mitral Valve Disease Reason for Visit Dyspepsia Celiac disease Chronic constipation Migraine Mitral valve disorder Staring episodes Mitral valve disorder Palpitations Chief Complaint [facility] f/u , pain Rheumatic Mitral Valve Disease [...] with constipation Mitral valve disorder Myalgia Palpitations Chief Complaint 3 month f/u r00.2 8 Weeks 2 month f/u-gerd Reason for Visit GERD (gastroesophage al reflux disease) Irritable bowel syndrome with constipation Fibromyalgia GERD (gastroesophageal reflux disease) Irritable bowel syndrome with constipation Mitral valve disorder Myalgia Palpitations GERD (gastroesophageal reflux disease) Irritable bowel syndrome with constipation Reason for Referral Specialty Diagnoses / Procedures Referred By Connie crawford Referred To Contact Diagnoses Chronic pain syndrome Fibromyalgia Procedures CONSULT TO MEDICAL GENETICS - GENERAL OFFICE/OUTPATIENT [facility] 60 MINUTES MEDICAL GENETICS COUNSELING EACH 30 MINUTES Radha Laguna MD [address] [place] [address] [address] Referral ID Status Reason Start Date Expiration Date Visits Requested Visits Authorized [id number] Pending Review PCP Requested Referral Auto-Generate d Referral 05/11/2025 1 1 Specialty Diagnoses / Procedures Referred By Contac t Referred To Contact [facility] [place] Diagnoses Chronic pain syndrome Fibromyalgia Procedures CONSULT TO [facility] (CHRONIC PAIN) OFFICE/OUTPATIENT NEW HIGH MDM 60 MINUTES Radha Laguna MD [address] [place] [address] Referral ID Status Reason Start Date Expiration Date Visits Requested Visits Authorized [id number] Pending Review PCP Requested Referral 05/11/2025 1 1 Specialty Diagnoses / Procedures Referred By Contac t Referred To Contact [facility] Diagnoses Chronic pain syndrome Fibromyalgia Procedures CONSULT TO PHYSICAL THERAPY PHYSICAL THERAPY EVALUATION HIGH COMPLEX 45 MINS Radha Laguna MD [address] [place] [address] [facility] [address] [address] Referral ID Status Reason Start Date Expiration Date Visits Requested Visits Authorized [id number] Pending Review Auto-Generat ed Referral 05/11/2025 1 1 Specialty Diagnoses / Procedures Referred By Contac t Referred To Contact [facility] Diagnoses Chronic pain syndrome Procedures CONSULT TO PAIN MGT OFFICE/OUTPATIENT NEW HIGH MDM 60 MINUTES Hussein Browne MD [address] [place] [address] [facility] [place] [address] [place] [address] Referral ID Status Reason Start Date Expiration Date V isits Requested Visits Authorized [id number] Closed PCP Requested Referral 04/27/2024 04/27/2025 1 1 Specialty Diagnoses / Procedures Referred By Contac t Referred To Contact Hussein Browne MD [address] [place] [address] Referral ID Status Reason Start Date Expiration Date Visits Re quested Visits Authorized [id number] Closed 1 1 Specialty Diagnoses / Procedures Referred By Contac t Referred To Contact Neurology Diagnoses Generalized weakness Generalized pain Gait instability Generalized abdominal pain Procedures CONSULT TO NEUROLOGY OFFICE/OUTPATIENT [facility] 60 MINUTES Monserrat Nava MD [address] [place] [id number] Referral ID Status Reason Start Date Expiration Date V isits Requested Visits Authorized [id number] Closed PCP Requested Referral 11/18/2023 11/17/2024 1 1 Specialty Diagnoses / Procedures Referred By Contac t Referred To Contact [facility] Diagnoses Generalized weakness Generalized pain Gait instability Generalized abdominal pain Procedures ESTABLISH WITH PRIMARY CARE NEW PATIENT OFFICE/OUTPATIENT [facility] 60 MINUTES Monserrat Nava MD [address] [place] [address] [place] [address] Referral ID Status Reason Start Date Expiration Date Visits Requested Visits Authorized [id number] Authorized PCP Requested Referral 11/18/2023 11/17/2024 1 1 Specialty Diagnoses / Procedures Referred By Contac t Referred To Contact MR IMAGING Diagnoses Abnormal brain MRI Pituitary adenoma (HCC) Elevated prolactin level Pituitary disorder (HCC) Procedures MRI PITUITARY WO/W IVCON MRI BRAIN BRAIN STEM W/O W/CONTRAST MATERIAL Monserrat Nava MD [address] [place] [address] [facility] [place] [address] Referral ID Status Reason Start Date Expiration Date V isits Requested Visits Authorized [id number] Closed Auto-Generate d Referral 11/18/2023 12/17/2024 1 1 Specialty Diagnoses / Procedures Referred By Contac t Referred To Contact MR IMAGING Diagnoses Abnormal brain MRI Pituitary adenoma (HCC) Elevated prolactin level Pituitary disorder (HCC) Procedures MRI PITUITARY WO/W IVCON MRI BRAIN BRAIN STEM W/O W/CONTRAST MATERIAL Monserrat Nava MD [address] [place] [id number] [facility] [place] [address] Referral ID Status Reason Start Date Expiration Date V isits Requested Visits Authorized [id number] Closed Auto-Generate d Referral 11/18/2023 12/17/2024 1 1 Additional Source Comments Source Comments (unrecognize d section and content) In the event this informatio n is protected by the Federal Confidentiality of Alcohol and Drug Abuse Patient Records regulations: The Federal rules restrict any use of the information to criminally investigate or prosecute any alcohol or drug abuse patient.[facility] the event this information is protected by the Federal Confidentiality of Alcohol and Drug Abuse Patient Records regulations: The Federal rules restrict any use of the information to criminally investigate or prosecute any alcohol or drug abuse patient.[facility] Center[facility] the event this information is protected by the Federal Confidentiality of Alcohol and Drug Abuse Patient Records regulations: The Federal rules restrict any use of the information to criminally investigate or prosecute any alcohol or drug abuse patient.[facility] Center[facility] the event this information is protected by the Federal Confidentiality of Alcohol and Drug Abuse Patient Records regulations: The Federal rules restrict any use of the information to criminally investigate or prosecute any alcohol or drug abuse patient.[facility] CenterIn the event this information is protected by the Federal Confidentiality of Alcohol and Drug Abuse Patient Records regulations: The Federal rules restrict any use of the information to criminally investigate or prosecute any alcohol or drug abuse patient.[facility] Center[facility] the event this information is protected by the Federal Confidentiality of Alcohol and Drug Abuse Patient Records regulations: The Federal rules restrict any use of the information to criminally investigate or prosecute any alcohol or drug abuse patient.[facility] CenterIn the event this information is protected by the Federal Confidentiality of Alcohol and Drug Abuse Patient Records regulations: The Federal rules restrict any use of the information to criminally investigate or prosecute any alcohol or drug abuse patient.[facility] Center[facility] the event this information is protected by the Federal Confidentiality of Alcohol and Drug Abuse Patient Records regulations: The Federal rules restrict any use of the information to criminally investigate or prosecute any alcohol or drug abuse patient.[facility] CenterIn the event this information is protected by the Federal Confidentiality of Alcohol and Drug Abuse Patient Records regulations: The Federal rules restrict any use of the information to criminally investigate or prosecute any alcohol or drug abuse patient.[facility] CenterIn the event this information is protected by the Federal Confidentiality of Alcohol and Drug Abuse Patient Records regulations: The Federal rules restrict any use of the information to criminally investigate or prosecute any alcohol or drug abuse patient.[facility] Center[facility] the event this information is protected by the Federal Confidentiality of Alcohol and Drug Abuse Patient Records regulations: The Federal rules restrict any use of the information to criminally investigate or prosecute any alcohol or drug abuse patient.[facility] CenterIn the event this information is protected by the Federal Confidentiality of Alcohol and Drug Abuse Patient Records regulations: The Federal rules restrict any use of the information to criminally investigate or prosecute any alcohol or drug abuse patient.[facility] CenterIn the event this information is protected by the Federal Confidentiality of Alcohol and Drug Abuse Patient Records regulations: The Federal rules restrict any use of the information to criminally investigate or prosecute any alcohol or drug abuse patient.[facility] INFORMATION SOURCE (unrecogn ized section and content) DATE CREATED AUTHOR 08/21/2021 [facility] DATE CREATED AUTHOR AUTHOR'S ORGANIZ ATION 12/06/[address] [facility] DATE CREATED AUTHOR AUTHOR'S ORGANIZ ATION 04/04/2024 [facility] DATE CREATED AUTHOR AUTHOR'S ORGANIZ ATION 04/12/2024 [facility] DATE CREATED AUTHOR AUTHOR'S ORGANIZ ATION 05/13/2024 [facility] REASON FOR VISIT (unrecogniz ed section and content) 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 Medical Records Reason Comments Radiology MRI Specialty Diagnoses / Procedures Referred By Contac t Referred To Contact MR IMAGING Diagnoses Abnormal brain MRI Pituitary adenoma (HCC) Elevated prolactin level Pituitary disorder (HCC) Procedures MRI PITUITARY WO/W IVCON MRI BRAIN BRAIN STEM W/O W/CONTRAST MATERIAL Monserrat Nava MD [address] [place] [address] Mr Imaging [facility] Referral ID Status Reason Start Date Expiration Date V isits Requested Visits Authorized [id number] Closed Auto-Generate d Referral 11/18/2023 12/17/2024 1 1 Reason Comments Medication Question Reason Comments Patient Question Insurance informatio n for medication Reason Comments New Patient Reason Comments New Patient Evaluation Specialty Diagnoses / Procedures Referred By Contac t Referred To Contact Neurology Diagnoses Generalized weakness Generalized pain Gait instability Generalized abdominal pain Procedures CONSULT TO NEUROLOGY OFFICE/OUTPATIENT NEW HIGH MDM 60 MINUTES Monserrat Nava MD [address] [place] [address] Referral ID Status Reason Start Date Expiration Date V isits Requested Visits Authorized [id number] Closed PCP Requested Referral 11/18/2023 11/17/2024 1 1 Reason Comments Insurance Authorization Reason Comments Established Patient Reason Comments Appointment New patient call Reason Comments Consult Specialty Diagnoses / Procedures Referred By Contac t Referred To Contact [facility] Diagnoses Chronic pain syndrome Procedures CONSULT TO PAIN MGT OFFICE/OUTPATIENT NEW HIGH MDM 60 MINUTES Hussein Browne MD [address] [place] [address] An[facility] [place] [address] [place] [address] Referral ID Status Reason Start Date Expiration Date V isits Requested Visits Authorized [id number] Closed PCP Requested Referral 04/27/2024 04/27/2025 1 1 Care Teams (unrecognized sec tion [...] Member Role Status Dates Kya Hoskins MD Audio Tape 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 Active [employer] MD Primary Care Provider Active Team Status: Active Member Role Status Dates [employer] MD Primary Care Provide r, Attending Provider Active Start: January 10, 2024 Team Status: Inactive Member Role Status Dates [employer] MD Primary Care Provider Active Start: February 15, 2024 End: February 15, 2024 Reji Bailey APRN Attending Provider Active Start: February 15, 2024 End: February 15, 2024 Retail Route Supervisor Relationship Specialty Start Date End Date Pia Laureano [address] [place] [address] Referring Rheumatology 02/16/24 Team Status: Inactive Member Role Status Dates [employer] MD Primary Care Provider Active Start: April 03, 2024 End: April 03, 2024 Kya Hoskins MD Attending Provider Active Sta rt: April 03, 2024 End: April 03, 2024 Team Status: Inactive Member Role Status Dates [employer] MD Primary Care Provider Active Start: April 12, 2024 End: April 12, 2024 Kya Hoskins MD Attending Provider Active Sta rt: April 12, 2024 End: April 12, 2024 Team Status: Active Member Role Status Dates [employer] MD Primary Care Provider Active Start: April 14, 2024 Saul Ryan DO Attending Provider Active S tart: April 14, 2024 Team Status: Inactive Member Role Status Dates [employer] MD Primary Care Provider Active Start: April 18, 2024 End: April 18, 2024 Reji Bailey APRN Attending Provider Active Start: April 18, 2024 End: April 18, 2024 Retail Route Supervisor Relationship Specialty Start Date End Date Sridevi Pia Bush [address] [place] [address] Referring Rheumatology 02/16/24 Retail Route Supervisor Relationship Specialty Start Date End Date Sridevi Pia Bush [address] [place] [address] Referring Rheumatology 02/16/24 Retail Route Supervisor Relationship Specialty Start Date End Date Sridevi Pia Bush [address] [place] [address] Referring Rheumatology 02/16/24 Retail Route Supervisor Relationship Specialty Start Date End Date [place]abad Pia Bush [address] [place] [address] Referring Rheumatology 02/16/24 Goals (unrecognized section and content) Goals may [...] BE BASED ON THE PRIMARY CLINICAL RECORDS. [facility] [employer] [facility]. provides no warranty or guarantee of the accuracy or completeness of information in this document.
--- NOTE | 2024-05-21 18:39 | CT_ITS ---
[address] [address] Patient Name: CHARLY FOSTER MRN: [id number] date: 2000 Sex: F Assigned Patient Location: ER Current Patient Location: ER Accession/Order Number: [id number] Exam Date: 05/21/2024 19:06 Report Date: 05/21/2024 21:09 At the request of: JESUS ESTRADA Procedure: CT abdomen pelvis w con Indication: Abdominal pain Comparison: None Procedure: Axial images were made from the diaphragms through the symphysis pubis. No oral contrast was given prior to scanning. 100 mL Omnipaque 300 Intravenous contrast was given. Dose reduction techniques were achieved by using automated exposure control and/or adjustment of mA and/or kV according to patient size and/or use of iterative reconstruction technique. Findings: Liver/Biliary System: No liver masses. No intra or extrahepatic biliary dilatation. No gallstones or cholecystitis. Pancreas/Spleen: No evidence of acute pancreatitis. Pancreatic duct is not dilated. No pancreatic lesions. Kidneys/Adrenals: Normal symmetrical nephrograms. No renal masses. No renal or ureteral stones are seen. No hydronephrosis or hydroureter bilaterally. No adrenal nodules. Aorta/Vessels: No evidence of aortic aneurysm. Patent IVC, renal veins, hepatic veins and portal venous system. Bowel/Fluid/Nodes: No bowel dilatation or bowel wall thickening. No evidence of bowel obstruction. Normal appendix. No ascites or fluid collections. No adenopathy. Lung bases: Clear. Other findings: Pectus excavatum. No aggressive osseous lesions are seen. Pelvis: No pelvic masses or adenopathy. Small amount of free fluid in cul-de-sac, most likely physiological. Probably ruptured right ovarian follicle. Please correlate clinically. Other Findings: No aggressive osseous lesions are seen. CT/CT abdomen pelvis w con Impression: 1. No evidence of acute abdominal or pelvic process. 2. Small amount of free fluid in cul-de-sac, most likely physiological. Probably ruptured right ovarian follicle. Please correlate clinically. 3. Pectus excavatum. Electronically authenticated by: ANH DEJESUS Date: 05/21/2024 21:09
[2024-05-21 18:42] LABS: Bilirubin Urine SMALL (NEGATIVE); Blood Urine LARGE (NEGATIVE); Clarity Urine CLEAR (CLEAR); Color Urine YELLOW (YELLOW); Glucose Urine UA NEGATIVE (NEGATIVE); Ketones Urine TRACE mg/dL (NEGATIVE); Leukocyte Esterase Urine NEGATIVE (NEGATIVE); Nitrite Urine NEGATIVE (NEGATIVE); Protein Urine TRACE mg/dL (NEG/TRACE); Specific Gravity Urine >=1.030 (1.005-1.025); Urobilinogen Urine 0.2 EU/dL (0.2-1.0); pH Urine 5.5 (5.0-9.0)
[2024-05-21 18:43] LABS: Urine Microscopic Indicated YES
[2024-05-21 18:44] LABS: HCG Qualitative Urine* NEGATIVE (NEGATIVE); Internal Control Within Normal Limits
[2024-05-21] MEDS: HYDROMORPHONE HCL 0.5 MG/0.5 ML SYRINGE IV (18:46)
[2024-05-21 18:48] LABS: Bacteria Urine SMALL #/HPF (NONE SEEN); Cast Seen? SEEN #/LPF (NONE SEEN); Crystals Seen? None Seen #/HPF (None Seen); Hyaline Casts Urine RARE; Mucus Urine SMALL (NONE SEEN); RBC Urine 50-75 #/HPF (0-2); Squamous Epithelial Cell Urine FEW #/LPF (NONE/RARE); Urine Culture Indicated YES
[2024-05-21 18:49] LABS: Basophils Absolute Auto 0.1 10^3/uL (0.0-0.1); Basophils Percent Auto 0.5 % (0.2-2.0); Eosinophils Absolute Auto 0.1 10^3/uL (0.0-0.7); Eosinophils Percent Auto 0.9 % (0.9-7.0); Hematocrit 39.7 % (36.0-48.0); Immature Granulocytes Abs Auto 0.03 10^3/uL (0.00-0.03); Immature Granulocytes Pct Auto 0.2 % (0.0-0.5); Lymphocytes Absolute Auto 1.9 10^3/uL (1.2-3.8); Lymphocytes Percent Auto 15.6 % (20.5-60.0); Mean Corpuscular HGB Conc 35.3 g/dL (29.9-35.2); Mean Corpuscular Hemoglobin 31.8 pg (26.7-34.0); Mean Corpuscular Volume 90.2 fL (81.0-99.0); Mean Platelet Volume 10.4 fL (9.5-13.5); Monocytes Absolute Auto 0.8 10^3/uL (0.3-0.8); Monocytes Percent Auto 6.3 % (1.7-12.0); Neutrophils Absolute Auto 9.2 10^3/uL (1.4-6.5); Neutrophils Percent Auto 76.5 % (43.0-75.0); Platelet Count 259 10^3/uL (150-450); Red Cell Distribution Width 11.9 % (11.0-15.0); White Blood Count 12.1 10^3/uL (4.0-11.0)
[2024-05-21 19:08] LABS: Alanine Aminotransferase 22 U/L (14-59); Albumin Globulin Ratio 1.3; Albumin Level 3.9 g/dL (3.4-5.0); Alkaline Phosphatase 67 U/L (46-116); Anion Gap 17.2; Aspartate Amino Transferase 19 U/L (15-37); BUN Creatinine Ratio 11.3; Bilirubin Total 1.2 mg/dL (0.2-1.0); Calcium 8.9 mg/dL (8.5-10.1); Carbon Dioxide 21.5 mmol/L (21.0-32.0); Chloride 108 mmol/L (98-107); Estimated GFR (African America >60 (>=60 mL/min/1.73m^2); Estimated GFR (Non-African Ame >60 (>=60 mL/min/1.73m^2); Glucose 106 mg/dL (74-106); Potassium 3.7 mmol/L (3.5-5.1); Sodium 143 mmol/L (136-145); Total Protein 6.9 g/dL (6.4-8.2)
[2024-05-21 19:17] LABS: Lactate/Lactic Acid 2.2 mmol/L (0.4-2.0)
--- NOTE | 2024-05-21 20:51 | US_ITS ---
The [address] [address] Patient Name: CHARLY FOSTER MRN: [id number] date: 2000 Sex: F Assigned Patient Location: ER Current Patient Location: .[facility] Accession/Order Number: [id number] Exam Date: 05/21/2024 21:05 Report Date: 05/21/2024 23:29 At the request of: JESUS ESTRADA Procedure: US pelvis transvaginal US pelvis transvaginal HISTORY: Pelvic pain COMPARISONS: 04/14/2024 TECHNIQUE: Transvaginal imaging of the pelvis was performed. FINDINGS: UTERUS: Normal in size and echogenicity. The uterus measures 7.3 x 3.4 x 4.3 cm. MYOMETRIUM:Unremarkable. ENDOMETRIUM: The endometrium is within normal limits. The endometrium measures1.29 cm which is still within normal limits in this premenopausal patient. RIGHT OVARY: Within normal limits without suspicious masses or cyst. There is normal blood flow. The right ovary measures 3.2 x 2.1 x 3.0 cm. LEFT OVARY: Within normal limits without suspicious masses or cyst. There is normal blood flow. The left ovary measures 3.3 x 2.4 x 2.7 cm. OTHER:There is no significant free fluid in the pelvis. US/US pelvis transvaginal IMPRESSION: Unremarkable pelvic ultrasound. Electronically authenticated by: MIKAYLA ORR Date: 05/21/2024 23:29
[2024-05-22] MEDS: KETOROLAC TROMETHAMINE 30 MG/ML VIAL IVP (00:02)
[2024-05-22 00:09] VITALS: BP 104/59; PULSE 51; O2SAT 98
== END 2024-05-22 00:09 | disposition home or self-care (01) ==
PROVIDERS: Physician Assistant; Emergency Provider Emergency Medicine; PCP Family Medicine
DX: R10.9 Unspecified abdominal pain (principal); E28.2 Polycystic ovarian syndrome
CPT/HCPCS: 36415; 74177; 76830; 80053; 81001; 83605; 84703; 85025; 87086; 96374; 96375; 99285; J1171; J1885; Q9967

== ENCOUNTER 2024-07-04 13:27 | Outpatient (OUT) | payer BC, SELFPAY ==
--- NOTE | 2024-07-04 14:03 | XR_ITS ---
The [address] [address] Patient Name: CHARLY FOSTER MRN: [id number] date: 2000 Sex: F Assigned Patient Location: [facility] Current Patient Location: Accession/Order Number: [id number] Exam Date: 07/04/2024 14:28 Report Date: 07/05/2024 07:15 At the request of: MAKAYLA SMITH Procedure: XR chest 2V EXAMINATION: XR chest 2V HISTORY: Preop exam COMPARISON: No relevant comparison available. TECHNIQUE: PA and lateral FINDINGS: LUNGS: No significant pulmonary parenchymal abnormalities. VASCULATURE: No increased pulmonary vasculature. PLEURA: No pneumothorax, effusion, or pleural thickening. CARDIAC: No cardiomegaly or cardiac silhouette abnormality. MEDIASTINUM: No visible mass or adenopathy. BONES: No fracture or visible bone lesion. Pectus excavatum OTHER: Negative. XR/XR chest 2V IMPRESSION: No acute cardiopulmonary process Electronically authenticated by: NASRIN RAMIREZ Date: 07/05/2024 07:15
== END 2024-07-04 13:28 | disposition home or self-care (01) ==
LOC: PST 13:28
PROVIDERS: PCP Family Medicine; Visit Provider Obstetrics & Gynecology
DX: Z01.810 Encounter for preprocedural cardiovascular examination (principal); E28.2 Polycystic ovarian syndrome; R10.2 Pelvic and perineal pain
CPT/HCPCS: 71046

== ENCOUNTER 2024-07-06 07:51 | Day surgery (SDC) | payer BC, SELFPAY ==
[2024-07-04 14:11] VITALS: BP 105/72; PULSE 65; TEMP 36.4; O2SAT 100; BMI 17.3
[2024-07-06] VITALS (11 sets, daily range): BP systolic 98–114; BP diastolic 59–91; PULSE 57–74; TEMP 36.1; O2SAT 97–100; BMI 16.9
--- OUTSIDE RECORDS SUMMARY | 2024-07-06 08:02 | XMS_ITS | CCD ---
Author Organization [facility] CliniSyde Care Team Providers Care Hand Tube Winder Name Role Phone Pcp, No Primary Care [...] FERRER Consulting Unavailable OMAIRA Gillette Attending Provider [phone] Adriana Stallworth Unavailable NO FAMILY, PHYSICIAN Primary Care Provider Unava ilable LALO Stallworth Attending Provider [phone] MD [employer] Primary Care Provider [phone] DO Bentley Byrne Attending Provider [phone] LALO Bailey Attending Provider Unavailable Primary Care Provider UnavailMD Kya Rose Attending Provider MD [employer] Primary Care Provider Pia Laureano Unavailable MD [employer] Primary Care Provider [phone] MD Kya Hoskins Attending Provider MONSERRAT NAVA Referring Unavailable MONSERRAT NAVA Attending Unavailable MONSERRAT NAVA Referring Unavailable RADHA LAGUNA Attending Unavailable HOLLIE, HUSSEIN Y Referring Unavailable HOLLIE, HUSSEIN Y Attending Unavailable MONSERRAT NAVA Referring Unavailable HOLLIE, HUSSEIN Koehler Attending Unavailable [employer] MD Primary Care Provider Adriana Stallworth Admitting Unavailable Adriana Stallworth Attending Unavailable NO FAMILY, PHYSICIAN Primary Care Unavailable [employer] Primary Care Unavailable Bentley Byrne Admitting Unavailab le Bentley Byrne Attending Unavailab le Aidee, Kya Admitting Unavailable Aidee, Kya Attending Unavailable [employer] Primary Care Unavailable Aidee, Kya Admitting Unavailable Aidee, Kya Attending Unavailable [employer] Primary Care Unavailable [employer] Primary Care Unavailable Reji Bailey Admitting Unavailable Reji Bailey Attending Unavailable MOHAN HUFFMAN Attending Unavailable BERNARDINO FERRER Referring Unavailable KELBLEY, HILLARY Attending Unavailable BERNARDINO FERRER L Referring Unavailable KEEGAN MILLER Attending Unavailable BERNARDINO FERRER L Referring Unavailable BRKEEGAN TAPIA Attending Unavailable NABILBERNARDINO L Referring Unavailable KELBLEY, HILLARY Attending Unavailable NABILSOLITARIOLY L Referring Unavailable KELBLEY, HILLARY Attending Unavailable NABILSOLITARIOLY L Referring Unavailable MOHAN HUFFMAN Attending Unavailable HALADAPIA Koehler Referring Unavailable BLACKSTONMOHAN Attending Unavailable HALADAYPIA Referring Unavailable KELBLEY, HILLARY Attending Unavailable HALADAPIA Koehler Referring Unavailable KELBLEY, HILLARY Attending Unavailable HALADAYPIA Referring Unavailable BLACKSTONMOHAN Attending Unavailable HALADAY, PIA G Referring Unavailable KELBLEY, HILLARY Attending Unavailable HALADAY, PIA G Referring Unavailable KELBLEY, HILLARY Attending Unavailable HALADAY, PIA G Referring Unavailable KELBLEY, HILLARY Attending Unavailable HALADAY, PIA G Referring Unavailable KELBLEY, HILLARY Attending Unavailable HALADAY, PIA G Referring Unavailable GABRIELA CHAUHAN Attending Unavailable RADHA LAGUNA Referring Unavailable DAHM, LILIANA Attending Unavailable RADHA LAGUNA Referring Unavailable SERA HEATH Attending Unavailable DAHM, LILIANA Attending Unavailable RADHA LAGUNA Referring Unavailable DAHM, LILIANA Attending Unavailable RADHA LAGUNA Referring Unavailable DAHM, LILIANA Attending Unavailable RADHA LAGUNA Referring Unavailable DAHM, LILIANA Attending Unavailable SERGIO, RADHA Referring Unavailable DAHM, LILIANA Attending Unavailable SERGIO, RADHA Referring Unavailable OSCAR BONILLA Attending Unavailable DAHM, LILIANA Attending Unavailable SERGIO, RADHA Referring Unavailable DAHM, LILIANA Attending Unavailable SERGIO, RADHA Referring Unavailable DAHM, LILIANA Attending Unavailable SERGIO, RADHA Referring Unavailable Allergies Allergy Classification Reported Allergen(s) Allergy Type Date of Onset Reaction(s) Facility (20 sources) Ciprofloxacin; Translations: [CIPROFLOXACIN] Drug Allergy 02-16-20 23 [facility] (20 sources) Codeine; Translations: [CODEINE] Drug Allergy 09-19-19 15 Hives, Other: See [facility] (13 sources) venlafaxine; Translations: [Effexor] Drug Allergy 09-17-19 20 swelling/shaki ng [facility] (15 sources) Atenolol; Translations: [ATENOLOL] Drug Allergy 10-10-19 24 Unknown, [facility] (14 sources) Cefuroxime; Translations: [CEFUROXIME] Drug Allergy 10-10-19 24 [facility] (2 sources) Ciprofloxacin Drug Allergy very nauseous [facility] (1 source) Codeine Drug Allergy 04-21-20 13 [facility] (4 sources) Iothalamate Drug Allergy 09-17-19 20 Unknown [facility] (2 sources) Perazine Drug Allergy Unknown [facility] (4 sources) predniSONE Drug Allergy 01-24-20 19 Unknown [facility] (4 sources) Sulfamethoxazole / Trimethoprim Drug Allergy Unknown [facility] (13 sources) Atenolol Drug Allergy 10-21-19 24 [facility] (20 sources) Cefuroxime Drug Allergy 09-24-19 18 [facility] [employer] Other (3 sources) Codeine Drug Allergy Unknown [employer] Other (20 sources) rizatriptan; Translations: [RIZATRIPTAN] Drug Allergy 02-16-[address] [facility] (20 sources) venlafaxine; Translations: [VENLAFAXINE] Drug Allergy 02-16-[address] [facility] (3 sources) corticosteroid and/or corticosteroid derivative (FN) Drug allergy Unknown [employer] Other (1 source) Cefuroxime Drug Allergy Unknown [employer] Other (1 source) Codeine Drug Allergy sensitive over dose as a child [employer] Other (1 source) venlafaxine Drug Allergy Unknown [facility] [employer] Other (18 sources) Corticosteroids; Translations: [CORTICOSTEROIDS (GLUCOCORTICOIDS)] Allergy to substance 10-10-[address] [facility] (20 sources) Metoclopramide; Translations: [METOCLOPRAMIDE] Drug Allergy 02-16-[address] [facility] (20 sources) Sulfamethoxazole; Translations: [SULFAMETHOXAZOLE] Drug Allergy 10-10-[address] [facility] (20 sources) Trimethoprim; Translations: [TRIMETHOPRIM] Drug Allergy 10-10-[address] [facility] (1 source) Atenolol Drug Allergy 04-18-20 [facility] (1 source) Cefuroxime Drug Allergy 04-18-20 [facility] (1 source) Ciprofloxacin Drug Allergy 04-18-20 [facility] (1 source) Codeine Drug Allergy 04-18-20 [facility] (1 source) rizatriptan Drug Allergy 04-18-20 [facility] (1 source) venlafaxine Drug Allergy 04-18-20 [facility] (5 sources) Atenolol Allergy to substance 10-21-19 [facility] (5 sources) Corticosteroids and derivatives Drug Allergy 10-21-19 [facility] (5 sources) Prednisone Allergy to substance 06-26-20 [facility] (5 sources) Sulfamethoxazole / Trimethoprim Drug Allergy 06-26-20 [facility] Medications Current Medications Medication Drug Class(es) Dates Sig (Normalized) Sig (Original) amoxicillin 500 mg oral tablet (15 sources) Penicillin-class Antibacterial Start: 06-19-2024 amoxicillin (Amoxil) 500 MG tablet TAKE 2 TABLETS BY MOUTH as soon as possible, then TAKE 1 TABLET BY MOUTH EVERY 6 HOURS UNTIL GONE 06/19/2024 Active Start: 09-10-2022 take 1 capsule by mo uth every twelve hours Amoxicillin 500 MG 1 [...] a day for 10 day(s) May, Active amoxicillin 875 mg / clavulanate 125 [...] a day for 10 day(s) Aug, Active brompheniramine maleate 0.4 mg/ml / dextromethorphan hydrobromide 2 mg/ml / pseudoephedrine hydrochloride 6 mg/ml oral solution (18 sources) alpha-Adrenergic Agonist, Uncompetitive C-rcchmm-M-aspartate Receptor Antagonist, Sigma-1 Agonist Start: 08-09-2023 brompheniramine-pseudoephedr ine-DM 30-2-10 MG/5ML syrup TAKE 1 TEASPOONFUL BY MOUTH EVERY 4 HOURS NEEDED FOR COUGH 08/09/2023 Active busPIRone hydrochloride 10 mg oral tablet (20 sources) Start: 03-22-2024 yvette noguera e 1 t a b l e t b y m o u t h t w i c e d a i l y Buspirone Active 0 .ROUTE .COMPLEX 60 March [...] 11-01-2023 take 1 tablet by zachary th in the morning busPIRone (Buspar) 10 MG tablet Take 10 mg by mouth in the morning and 10 mg before bedtime. 04/26/2024 Active Start: 10-07-2023 End: 12-22-2023 take 1 [...] Status: Not-Taking\PRN; Provider: Lexa Wong ( ) End: 06-26-2024 take 2 tablets by mouth every eight hours busPIRone (Buspar) 5 MG tablet Take 10 mg by mouth every 8 (eight) hours. 06/26/2024 Discontinued (Other) take 1 tablet by zachary th twice daily busPIRone HCl 10 mg TAKE 1 TABLET BY MOUTH TWICE DAILY for 30 Active take 1 tablet by zachary th three times daily as needed BuSpar 5 MG 1 tablet Orally Three times a day Not-Taking/PRN dicyclomine hydrochloride 20 mg oral tablet (18 sources) Anticholinergic Start: 05-29-2024 take 1 tablet by mouth every six hours dicyclomine (Bentyl) 20 MG tablet Indications: Generalized abdominal pain Take 1 tablet (20 mg) by mouth every 6 (six) hours if needed (Abdominal pain) for up to 20 doses 20 tablet 05/29/2024 Active fluticasone (2 sources) Corticosteroid Start: 04-26-2021 take 2 spray(s) nasal route once daily FLONASE 50 mcg 2 sprays nasally qd 2 sprays to each nostril daily until your symptoms improve Apr, Active Medrol Dose Pack as directed (2 sources) Start: 04-26-2021 Medrol Dose Pa ck as directed as directed orally as directed for 6 days Apr, Active 24 hr metFORMIN hydrochloride 500 mg extended release oral tablet (10 sources) Biguanide Start: 04-25-2023 End: 05-29-2024 take 1 tablet by mouth every twenty-four hours at mealtime metFORMIN XR (Glucophage-XR) 500 MG 24 hr tablet Indications: Female infertility , PCOS (polycystic ovarian syndrome) Take 1 tablet (500 mg) by mouth in the evening. Take with meals. Do not crush, chew, or split. 30 tablet 04/25/2023 05/29/2024 Discontinued (Therapy completed) take 5 mL by mouth once daily [...] succinate 25 mg extended release oral tablet (8 sources) beta-Adrenergic Cindi Start: 06-12-2024 take 1 tablet by mouth every twenty-four hours in the morning metoprolol succinate XL (Toprol-XL) 25 MG 24 hr tablet Take 25 mg by mouth in the morning and 25 mg before bedtime. 06/12/2024 Active Start: 04-12-2024 take 1 tablet by twice daily Metoprolol Succinate Active 0 .ROUTE .COMPLEX 60 April 12, 2024 12:21pm TAKE 1 TABLET BY MOUTH TWICE DAILY Start: 04-12-2024 End: 04-12-2024 take 1 tablet by mouth once daily Metoprolol Succinate Discontinued 25 MG PO Twice daily 60 April 12, 2024 12:00am April 12, 2024 [...] 15, 2024 1:43pm pregabalin 25 mg oral capsul e (6 sources) Start: 05-11-2024 End: 08-09-2024 pregabalin (Lyrica) 25 MG ca psule Take 25 mg by mouth in the morning and 25 mg at noon and 25 mg in the evening. 05/11/2024 08/09/2024 Active ubrogepant 50 mg oral tablet (20 sources) Start: 12-09-2023 Ubrogepant (Ub relvy) 50 MG tablet Take 50 mg by mouth 12/09/2023 Active Completed/Discontinued Medications Medication Drug Class(es) Dates Sig (Normalized) Sig (Original) [id number] 200 actuat albuterol 0.09 mg/actuat metered dose inhaler (20 sources) beta2-Adrenergic Agonist Start: 10-07-2023 End: 04-18-2024 take 2 puff(s) by inhalation four times daily as needed Albuterol Sulfate Discontinued 2 PUFF INHALATION Four times daily January 06, 2024 9:31am April 18, 2024 2:23pm [employer] puffs Inhalation 4 times a day prn; Note: Source Status: Taking; Refills: 0; Provider: Leta Solan Start: 07-05-2023 take 2 puff(s) by mo uth four times daily as needed albuterol HFA 90 mcg/act inhaler INHALE 2 (TWO) PUFFS BY MOUTH FOUR TIMES DAILY NEEDED 07/05/2023 Active Start: 07-05-2023 take 2 puff(s) by in halation four times daily as needed Albuterol Sulfate HFA 108 (90 Base) MCG/ACT 2 puffs Inhalation 4 times a day prn Jun, Active cyproheptadine hydrochloride 4 mg oral tablet [...] 2:24pm Start: 02-17-2024 take 1 capsule by mo [facility] twice daily Lubiprostone (Amitiza) 8 mcg capsule [...] Sloan Start: 01-15-2023 [facility] Pyridium 200 MG 1 [...] mg tablet Active 3 MG PO Daily 30 February 15, 2024 12:00am predniSONE 20 mg oral tablet (9 sources) Start: 09-10-2022 take 1 tablet by mouth every twelve hours predniSONE 20 MG 1 tablet Orally 2 times a day for 5 day(s) Aug, Not-Taking/PRN propranolol hydrochloride 10 mg oral tablet (10 sources) beta-Adrenergic Cindi Start: 01-06-2024 End: 04-12-2024 take 10 mg by mouth twice daily Propranolol Discontinued 10 MG PO Twice daily 60 March 16, 2024 9:59am April 12, 2024 12:10pm sertraline 20 mg/ml oral solution (14 sources) Serotonin Reuptake Inhibitor End: 06-26-2024 sertraline (Zoloft) 20 MG/ML concentrated solution Zoloft 06/26/2024 Discontinued (Other) topiramate (10 sources) Topamax Not-Taking/PRN Topamax Not-Taki ng Topamax Active Problems Active Problems Problem Classification Problem Date Documented Da te Episodic/Chronic Abdominal pain (13 sources) Epigastric pain; Translations: [Dyspepsia and other [...] diseases Z20.828] Onset: 1 Resolved: 1 Episodic Joint disorders and dislocations; trauma-related (1 source) Disorder of patellofemoral joint; Translations: [Patellofemoral disorders, right knee] 04-10-2024 Chronic Menstrual disorders (3 sources) Missed period; Translations: [Irregular menstruation, unspecified] Chronic Other and unspecified benign neoplasm (2 sources) Pituitary adenoma; Translations: [Benign neoplasm of pituitary gland] 11-23-2023 Episodic Other connective tissue disease (5 sources) Muscle pain; Translations: [Myalgia, unspecified site] 01-10-2024 Episodic Other connective tissue disease (20 sources) Fibromyalgia; Translations: [Fibromyalgia] Onset: 4 02-15-2024 Episodic Other connective tissue disease (2 [...] of pituitary gland, unspecified] 11-23-2023 Chronic Other endocrine disorders (1 source) Polycystic ovary syndrome; Translations: [Polycystic ovarian syndrome] 06-26-2024 Chronic Other female genital disorders (4 sources) History of gynecological disorder; Translations: [Personal history of other diseases of the female genital tract] 05-29-2024 Episodic Other gastrointestinal disorders (7 sources) Celiac disease; [...] IN LEFT ANKLE] Onset: 3 Episodic Other non-traumatic joint disorders (1 source) Pain in right knee; Translations: [Pain in joint, lower leg] 04-10-2024 Episodic Other upper respiratory disease (12 sources) Allergic rhinitis; Translations: [Allergic rhinitis, unspecified] Chronic Other upper respiratory infections (20 sources) Acute sinusitis; Translations: [Sinusitis acute] Onset: 1 Resolved: 1 Episodic Ovarian cyst (2 sources) Cyst of right ovary; Translations: [Unspecified ovarian cyst, right side] 05-29-2024 Episodic Residual codes; unclassified (11 sources) Staring; [...] Classification Problem Date Documented Da te Episodic/Chronic Malaise and fatigue (20 sources) Fatigue; Translations: [Other fatigue] Onset: 12-09-2023 10-10-2023 Episodic Nausea and vomiting (20 sources) Nausea and vomiting; Translations: [Nausea with vomiting, unspecified] Onset: 11-07-2023 10-10-2023 Episodic Other circulatory disease (3 sources) [...] Test Name Value Interpretation Reference Range Facility CNOV 05-11-2024 CNOV Office Visit (PIO ) CHARLY FOSTER ([id number]) 2000 F Date Time Provider Department 05/11/24 8:30 AM RADHA LAGUNA During your visit today, we recorded the following information about you: Pulse Blood pressure Weight 53/minute 91/54 50 kg Radha Laguna MD 05/11/2024 9:22 AM Signed [facility] Pain Management Department Consultation Date: May 11, 2024 - AM Referring physician: Hussein Browne [address] [phone] Charly Foster is self referred. 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 Normal [facility] Lenka 04-30-2024 CNPN Telephone (MUSAAVJonh) CHARLY FOSTER ([id number]) 2000 F Date Time Provider Department 04/30/24 [...] Status:Closed by CARLEE MANZO on 04/30/24 Normal [facility] Basophils Auto (Bld) [#/Vol] on 04-14-2024 Basophils (Bld) [#/Vol] 0.1 10 3/uL 0.0-0.1 [facility] Basophils/100 WBC Auto (Bld) on 04-14-2024 Basophils/100 WBC (Bld) 0.8 % 0.2-2.0 [facility] Eosinophils/100 WBC Auto (Bl d)on 04-14-2024 Eosinophils/100 WBC (Bld) 1.7 % 0.9-7.0 [facility] Erythrocyte distribution wid th Auto (RBC) [Ratio]on 04-14-2024 Erythrocyte distribution width (RBC) [Ratio] 12.2 % 11.0-15.0 [facility] Estimated glomerular filtrat ion rate (GFR) non- Americanon 04-14-2024 GFR/1.73 sq M.predicted among non-blacks MDRD (S/P/Bld) [Vol rate/Area] mL/min/{1.73_m2} >=60 [facility] HCG ( test) IA.rapi d Ql (U)on 04-14-2024 HCG ( test) Ql (U) Negative NEGATIVE [facility] Hematocrit Auto (Bld) [Volum e fraction]on 04-14-2024 Hematocrit (Bld) [Volume fraction] 41.5 % 36.0-48.0 [facility] Hemoglobin [Mass/volume] in Bloodon 04-14-2024 Hemoglobin (Bld) [Mass/Vol] 14.3 g/dL 12.0-16.0 [facility] Laboratory - Chemistry and C hemistry - challengeon 04-14-2024 Calcium [Mass/Vol] 8.8 mg/dL 8.5-10.1 [facility] Chloride [Moles/Vol] 103 mmol/L 98-107 [facility] CO2 [Moles/Vol] 28.2 mmol/L 21.0-32.0 [facility] Creatinine [Mass/Vol] 0.83 mg/dL 0.55-1.02 [facility] GFR/1.73 sq M.predicted MDRD (S/P/Bld) [Vol rate/Area] mL/min/{1.73_m2} >=60 [facility] Glucose [Mass/Vol] 77 mg/dL 74-106 [facility] Potassium [Moles/Vol] 3.8 mmol/L 3.5-5.1 [facility] Sodium [Moles/Vol] 136 mmol/L 136-145 [facility] Urea nitrogen [Mass/Vol] 7.0 mg/dL 7.0-18.0 [facility] Urea nitrogen/Creatinin e [Mass ratio] 8.4 mg/mg [facility] Bilirubin Ql (U) Negative NEGATIVE [facility] Glucose (U) [Mass/Vol] Negative NEGATIVE [facility] Ketones Ql (U) Negative NEGATIVE [facility] pH (U) 6.0 [pH] 5.0-9.0 [facility] Specific gravity (U) [Rel density] 1.010 1.005-1.025 [facility] Urobilinogen Qn (U) 0.2 {Scot'U}/dL 0.2-1.0 [facility] Laboratory - Hematology and Cell countson 04-14-2024 Immature granulocytes/100 WBC (Bld) 0.1 % 0.0-0.5 [facility] Laboratory - Specimen inform ationon 04-14-2024 Appearance (U) CLEAR CLEAR [facility] Color (U) LT. YELLOW YELLOW [facility] Laboratory - Urinalysison Leukocyte esterase Test strip Ql (U) Negative NEGATIVE [facility] Mucus Ql (Urine sed) TRACE Abnormal NONE SEEN [facility] Nitrite Ql (U) Negative NEGATIVE [facility] Protein Ql (U) Negative NEG/TRACE [facility] Leukocytes [#/volume] correc jeri for nucleated erythrocytes in Blood by Automated counon 04-14-2024 WBC corrected for nucl RBC Auto (Bld) [#/Vol] 7.3 10 3/uL 4.0-11.0 [facility] Lymphocytes Auto (Bld) [#/Vo l]on 04-14-2024 Lymphocytes (Bld) [#/Vol] 2.2 10 3/uL 1.2-3.8 [facility] Lymphocytes/100 WBC Auto (Bl d)on 04-14-2024 Lymphocytes/100 WBC (Bld) 29.6 % 20.5-60.0 [facility] MCH Auto (RBC) [Entitic mass ]on 04-14-2024 MCH (RBC) [Entitic mass] 31.1 pg 26.7-34.0 [facility] MCHC Auto (RBC) [Mass/Vol]on 04-14-2024 MCHC (RBC) [Mass/Vol] 34.5 g/dL 29.9-35.2 [facility] MCV Auto (RBC) [Entitic vol] on 04-14-2024 MCV (RBC) [Entitic vol] 90.2 fL 81.0-99.0 [facility] Monocytes Auto (Bld) [#/Vol] on 04-14-2024 Monocytes (Bld) [#/Vol] 0.7 10 3/uL 0.3-0.8 [facility] Monocytes/100 WBC Auto (Bld) on 04-14-2024 Monocytes/100 WBC (Bld) 9.6 % 1.7-12.0 [facility] Neutrophils Auto (Bld) [#/Vo l]on 04-14-2024 Neutrophils (Bld) [#/Vol] 4.2 10 3/uL 1.4-6.5 [facility] Neutrophils/100 WBC Auto (Bl d)on 04-14-2024 Neutrophils/100 WBC (Bld) 58.2 % 43.0-75.0 [facility] No Panel Informationon 04-14 Eosinophils # (Auto) 0.1 10 3/uL 0.0-0.7 [facility] Immature Granulocyte # (Auto) 0.01 10 3/uL 0.00-0.03 [facility] Urine Bacteria NONE SEEN #/HPF NONE SEEN [facility] Urine Occult Blood Negative NEGATIVE [facility] Urine Other Casts NONE SEEN #/LPF NONE SEEN [facility] Urine Other Crystals None Seen #/HPF None Seen [facility] Urine RBC 0-2 #/HPF 0-2 [facility] Urine Squamous Epithelial Cells FEW #/LPF Abnormal NONE/RARE [facility] Urine WBC 0-2 #/HPF Abnormal NONE SEEN [facility] Platelet mean volume Auto (B ld) [Entitic vol]on 04-14-2024 Platelet mean volume (Bld) [Entitic vol] 10.0 fL 9.5-13.5 [facility] Platelets Auto (Bld) [#/Vol] on 04-14-2024 Platelets (Bld) [#/Vol] 241 10 3/uL 150-450 [facility] RBC Auto (Bld) [#/Vol]on RBC (Bld) [#/Vol] 4.60 10 6/uL 4.20-5.40 [facility] Serum or plasma anion gap de terminationon 04-14-2024 Anion gap [Moles/Vol] 8.6 mmol/L [facility] ECH echo transthoracicon [place] [address] Echocardiogram Signed Patient: Charly Foster MR#: [id number] 1015 : 2000 Acct:[id number] Age/Sex: 23 / F ADM Date: 04/03/24 Loc: Room: Type: [facility] Attending Dr: Kya Hoskins MD Ordering Provider: Kya Hoskins MD Date of Service: 04/03/2405/17/841 [facility] echo transthoracic: R00.2 - Palpitations Copies to: [...] DO 04/03/24 1445 Normal [facility] Lenka [facility] CHARLY FOSTER ([id number]) 2000 F Date Time Provider Department 03/01/24 [facility] During your visit today, we recorded the [...] Encounter Status:Closed by ANDRIA CARDONA on 03/01/24 Normal [facility] No Panel Informationon 01-09 Human Chorionic Gonadotropin, Quant <1 mIU/mL [facility] Comment on above: 5-50 0.2-1 CDSA99-20 0 1-2 NSFQQ220-6,000 2-3 VENDF323-87,000 3-4 WEEKS1,000-50,000 4-5 WEEKS10,000-100,000 5-6 WEEKS15,000-200,000 6-8 WEEKS10,000-100,000 2-3 MONTHS [facility] ECG *CARDIOLOGY ONLY*on 01-06-2024 [facility] ECG *CARDIOLOGY ONLY* [facility] [place] [address] Electrocardiograph Report Signed Patient: Charly Foster MR#: [id number] [id number] : 2000 Acct:[id number] Age/Sex: 23 / F ADM Date: 01/06/24 Loc: EKGCARDIO Room: Type: [facility] Attending Dr: Kya Hoskins MD Ordering [...] previous ECGs available Confirmed by Roel Tam ([id number]) on 01/10/2024 8:31:14 AM Referred By: Electronically Signed By:Roel Tam Transcribed By: MUS Signed By Roel Tam MD 01/10/24 0831 Normal [facility] Lenka 12-12-2023 CNPN Telephone (NEURMM) CHARLY FOSTER ([id number]) 2000 F Date Time Provider Department 12/12/23 HUSSEIN BROWNE NEUR During your visit today, we recorded the following information about you: Lawrence Kinsey, RN 12/12/2023 11:29 AM Signed Kandice Garcia, [employer], [place] ID left message on nurse line for provider today with medication question regarding recent prescription for Ubrelvy 50 mg. Tablets. You sent over a prescription for 16 tablets but the medication comes in a box of 10 and we do not split boxes. I was wondering if you could change the quantity to a value of 10. Spoke to Pharmacist at [employer] who was advised that 16 is the maximum monthly asbestos siding mechanic recommended dose. They have started prior authorization [...] Fully Assessed Reason for Visit: Medication Question [0728] Prescriptions as of 12/12/2023 - ubrogepant (UBRELVY) [...] Encounter Status:Closed by LAWRENCE KINSEY on 12/12/23 [facility] CHARLY FOSTER ([id number]) 2000 F Date Time Provider Department 12/12/23 HUSSEIN BROWNE During your visit today, we recorded the following information about you: Andria Cardona MA 12/12/2023 1:19 PM Signed Left to call office with current RX insurance [...] CARDONA on 12/13/23 Normal [facility] MR Pituitary and Sella turci ca WO and W contrast Olga 11-23-2023 IMPRESSION: No pituitary lesion. Adenohypophysis is within normal size limits for age and gender. Theater Technician: ADRIÁN Transcribe Date/Time: Nov 23 2023 2:00P Dictated by : DANNIE TYLER DO This examination was interpreted and the report reviewed and electronically signed by: DANNIE TYLER DO on Nov 23 2023 2:08PM [facility] DIVISION OF RADIOLOGY * * *Final Report* * * DATE OF EXAM: Nov 23 2023 1:22PM [facility] 0314 - MRI PITUITARY WO/W IVCON [...] underlying skull base. DIVISION OF RADIOLOGY Provider, [facility] - 11/23/2023 * * *Final Report* * * DATE OF EXAM: Nov 23 2023 1:22PM [facility] 0314 - MRI PITUITARY WO/W IVCON [...] normal size limits for age and gender. Theater Technician: ADRIÁN Transcribe Date/Time: Nov 23 2023 2:00P Dictated by : DANNIE TYLER DO This examination was interpreted and the report reviewed and electronically signed by: DANNIE TYLER DO on Nov 23 2023 2:08PM [facility] Radiology Study observation (narrative) [facility] MR Pituitary and Sella turci ca WO and W contrast IVOrdered By: Ccf Provider on 11-23-2023 [facility] MRI PITUITARY WO/W IVCONon 0 11-23-2023 MRI PITUITARY WO/W IVCON * * *Final Report* * * DATE OF EXAM: Nov 23 2023 1:22PM [facility] 0314 - MRI PITUITARY WO/W IVCON [...] normal size limits for age and gender. Theater Technician: PSCB Transcribe Date/Time: Nov 23 2023 2:00P Dictated by : DANNIE TYLER DO This examination was interpreted and the report reviewed and electronically signed by: DANNIE TYLER DO on Nov 23 2023 2:08PM EST [id number] Normal [facility] CNPNon 11-21-2023 CNPN Telephone (ENDOMN) CHARLY FOSTER ([id number]) 2000 F Date Time Provider Department 11/21/23 MONSERRAT NAVA ENDOMN During your visit today, we recorded the following information about you: Key Moore 11/21/2023 6:16 PM Signed Updated clinical notes from [facility] Date collected 10/19/23 Date scanned in chart 11/21/23 Key Meneses Senior Consulting Manager II [facility] F-20 Monserrat Nava MD 12/01/2023 4:53 PM [...] Encounter Status:Closed by KEY MOORE on 11/21/23 [facility] CNOVon 11-18-2023 CNOV Office Visit (ENDPMN ) CHARLY FOSTER ([id number]) 2000 F Date Time Provider Department 11/18/23 [...] 5.3 Insulin-lik (more content not included)... Normal [facility] ACTH Plas-mCncon 11-17-2023 Corticotropin (P) [Mass/Vol] 7.3 pg/mL Normal 7.2-63.3 [facility] Comment on above: Order Comment: Speci men Type: BLOOD SPECIMENOrdering Facility: [facility] Address: [address] [place] [address] Result Comment: ACTH Reference Range: 7-10 am: 7.2 - 63.3 pg/mL Performed By: #### 2 141-0 ####[facility] LABCLIA [id number] [place] [address] [place] Cortis SerPl-ncon 11-17-19 Cortisol [Mass/Vol] 13.5 ug/dL Normal 4.8-19.5 [facility] Comment on above: Order Comment: Speci men Type: BLOOD SPECIMENOrdering Facility: [facility] Address: [address] [place] [address] Result Comment: Prov ided reference range is from 6-10 AM sample collection time. Cortisol Reference Range: 6-10 AM = 4.8-19.5 ug/dL, 4-8 PM = 2.5-11.9 ug/dL Performed By: #### T 4FTI, 76917-3, 2243-4, 2143-6 ####[facility] LABCLIA [id number] [place] [address] [place] DHEA BLOODon 11-17-2023 DHEA 2.677 ng/mL Normal 1.330-7.780 [facility] Comment on above: Order Comment: Speci men Type: BLOOD SPECIMENOrdering Facility: [facility] Address: [facility] [place] [place] [address] Result Comment: INTERPRETIVE INFORMATION: Dehydroepiandrosterone, Females 18 years and older: Postmenopausal: 0.60-5.73 ng/mL REFERENCE INTERVAL: Dehydroepiandrosterone by TMS Access complete set of age- and/or gender-specific reference intervals for this test in the [facility] Test Directory ([employer]). This test was developed and its performance characteristics determined by [employer]. It has not been cleared or approved by the US Food and Drug Administration. This test was performed in a CLIA certified laboratory and is intended for clinical purposes. Performed By: [facility] [address] [place] [address] [employer] Inspectors: Josse Gardiner MD, PhD CLIA Number: [id number] Performed By: #### D CHARLES ####[facility] LABORATORIESIA [id number] [place] [address] Estradiol SerPl-mCncon 11-16 E2 [Mass/Vol] 92 pg/mL Normal [facility] Comment on above: Order Comment: Speci men Type: BLOOD SPECIMENOrdering Facility: [facility] Address: [address] [place] [address] Result Comment: This test is not suitable [...] 3243 pg/mL Second trimester : 1561 to 96678 pg/mL Third trimester : 8285 to >98035 pg/mL Post-menopausal Estradiol reference range: < 41 pg/mL Reference: 1. Estradiol - E2 (Estradiol III) [package insert V 3.0 [place]]. [employer], [place], [place], December 2015. Performed By: #### T 4FTI, 25858-4, 2243-4, 2143-6 ####[facility] LABCLIA [id number] [facility] [id number] [address] [place] FSH SerPl-aCncon 11-17-2023 Follitropin Qn 4.6 m[IU]/mL Normal See comment [facility] Comment on above: Order Comment: Speci men Type: BLOOD SPECIMENOrdering Facility: [facility] Address: [address] [place] [address] Result Comment: Refe rence range: Follicular: 3.5-12.5 mIU/mL Ovulation: 4.7-21.5 mIU/mL Luteal: 1.7-7.7 mIU/mL Postmenopausal: 25.8-134.8 mIU/mL Performed By: #### T 4FTI, 99176-9, 2243-4, 2143-6 ####[facility] LABCLIA [id number] [address] [place] INSULIN LIK GR FAC Ion 11-16 INSULIN LIK GR FAC 1 363 ng/mL High 102-317 [facility] Comment on above: Order Comment: Speci men Type: BLOOD SPECIMENOrdering Facility: [facility] Address: [address] [place] [address] Performed By: #### I LGF1 ####[facility]CLIA [id number] [address] [place] LH SerPl-aCncon 11-17-2023 Lutropin Qn 5.3 m[IU]/mL Normal See comment [facility] Comment on above: Order Comment: Speci men Type: BLOOD SPECIMENOrdering Facility: [facility] Address: [address] [place] [address] Result Comment: Refe rence range: Follicular: 2.4-12.6 mIU/mL Midcycle: 14.0-95.6 mIU/mL Luteal: 1.0-11.4 mIU/mL Post Yulia: 7.7-58.5 mIU/mL Performed By: #### 3 024-7, 2842-3, 2839-9, 96624-9 ####[facility] LABCLIA [id number] [place] [address] [place] Progest SerPl-mCncon 024 Progesterone [Mass/Vol] 7.9 ng/mL Normal See comment [facility] Comment on above: Order Comment: Speci men Type: BLOOD SPECIMENOrdering Facility: [facility] Address: [address] [place] [address] Result Comment: Mens trual Cycle Progesterone Reference Ranges: Follicular: <1.0 ng/mL Ovulation: <12.1 ng/mL Luteal: 1.8 to 23.9 ng/mL. Progesterone Reference Ranges vary by gestational period: First Trimester: 11.0 to 44.3 ng/mL Second Trimester: 25.4 to 83.3 ng/mL Third Trimester: 58.7 to 214 ng/mL Post menopausal Progesterone: <0.5 ng/mL Reference: 1. Progesterone (Progesterone III) [package insert V 1.0 Citizen [place]]. [employer], [place], [place]. April 2015. Performed By: #### 3 024-7, 2842-3, 18299, 29671-6 ####[facility] LABCLIA [id number] [place] [address] [place] Prolactin SerPl-mCncon 11-16 Prolactin [Mass/Vol] 75.1 ng/mL High 4.5-26.8 [facility] Comment on above: Order Comment: Speci men Type: BLOOD SPECIMENOrdering Facility: [facility] Address: [address] [place] [address] Result Comment: Prol actin test is performed using the [employer] Electrochemiluminescence Immunoassay method. Results obtained with different methods or kits cannot be used interchangeably. Performed By: #### 3 024-7, 2842-3, 2839-9, 63484-8 ####[facility] LABCLIA [id number] [place] [address] [place] Somatostat Plas-mCncon 11-16 Somatostatin (P) [Mass/Vol] 0.13 ng/mL Normal <3.61 [facility] Comment on above: Order Comment: Speci men Type: BLOOD SPECIMENOrdering Facility: [facility] Address: [address] [place], [place] [address] Performed By: #### 2 961-1 ####[facility] LABCLIA [id number] [place] [address] [place] T4 Free SerPl-mCncon 024 Free T4 [Mass/Vol] 1.5 ng/dL Normal 0.9-1.7 [facility] Comment on above: Order Comment: Speci men Type: BLOOD SPECIMENOrdering Facility: [facility] Address: [address] [place] [address] Performed By: #### 3 024-7, 2842-3, 2839-9, 64990-7 ####[facility] LABCLIA [id number] [place] [address] [place] T4/FTI/T4Uon 11-17-2023 FTI 7.4 ug/dL Normal 5.3-10.8 [facility] Comment on above: Order Comment: Speci men Type: BLOOD SPECIMENOrdering Facility: [facility] Address: [address] [place] [address] Performed By: #### T 4FTI, 33096-5, 2242-4, 6 ####[facility] LABCLIA [id number] [place] [address] [place] T4 [Mass/Vol] 7.4 ug/dL Normal 5.5-10.2 [facility] Comment on above: Order Comment: Speci men Type: BLOOD SPECIMENOrdering Facility: [facility] Address: [address] [place] [address] Performed By: #### T 4FTI, 97623-8, 2242-, 6 ####[facility] LABCLIA [id number] [place] [address] [place] T4 uptake [Mass/Vol] 1.00 Normal 0.91-1.19 [facility] Comment on above: Order Comment: Speci men Type: BLOOD SPECIMENOrdering Facility: [facility] Address: [address] [place] [address] Performed By: #### T 4FTI, 69354-3, 2243-4, 2143-6 ####[facility] LABCLIA [id number] [place] [address] [place] TSH SerPl-aCncon 11-17-2023 TSH Qn 1.760 m[IU]/L Normal 0.270-4.200 [facility] Comment on above: Order Comment: Maya cordoba Type: BLOOD SPECIMENOrdering Facility: [facility] Address: [address] [place] [address] Result Comment: If t he patient is , TSH reference range varies by gestational period: First Trimester (weeks 9-12): 0.180-2.990 mIU/L Second Trimester: 0.110-3.980 mIU/L Third Trimester: 0.480-4.710 mIU/L Antonio Arias et al. A Practical Approach for the Verifications and Determination of Site- and Trimester-Specific Reference Intervals for Thyroid Function tests in . Thyroid, 2019:29:3:412-420. Massimo E, et al. 2017 Guidelines of the [place] Thyroid Association for the Diagnosis and Management of Thyroid Disease during and the . Thyroid, 2017:27:3:315-389. Performed By: #### 3 016-3 ####[facility] LABCLIA [id number] [place] [address] [place] [facility] CHARLY FOSTER ([id number]) 2000 F Date Time Provider Department 11/16/23 MONSERRAT NAVA [facility] During your visit today, we recorded the following information about you: Gil Salinas RN 11/16/2023 9:41 AM Signed Call placed to Charly Foster. Discussed appointment on Tuesday with Dr. Nava. She tells me she was referred due to abnormal MRI findings. MRI is available for review in [facility]. She has not had pituitary lab work completed. Explained lab work will help have a more productive appointment. I will place orders and she can have them completed at any [facility] lab prior to 9 am. She is going to try to have them completed tomorrow morning. Instructed to refrain from sexual activity or nipple stimulation 12 hours prior to obtaining labs. Understands not to take any steroids the morning of lab work. All questions answered at this time. Gil Salinas RN Delivery Driver/Customer Service November 16, 2023 Allergies As of Date: 11/16/2023 (Not on File) Date Reviewed: Never Reviewed Reason for Visit: Delivery Driver/Customer Service - Other [3602] Primary Visit Diagnosis:Hypophysitis (HCC) [E23.6] Order(s):ESTRADIOL-17B BLD [SQE2] Order #: [id number] FUTURE PROLACTIN [SQPROL] Order #: [id number] FUTURE PROGESTERONE [SQPROG] Order #: [id number] FUTURE THYROID STIMULATING HORMONE [SQTSH] Order #: [id number] FUTURE GROWTH HORMONE [SQGH] Order #: [id number] FUTURE LUTEINIZING HORMONE [SQLH] Order #: [id number] FUTURE INSULIN LIK GR FAC I [SQILGF1] Order #: [id number] FUTURE FOLLICLE STIMULATING HORMONE [SQFSH] Order #: [id number] FUTURE T4 FREE/FREE THYROXINE [SQFT4] Order #: [id number] FUTURE CORTISOL, SERUM [SQCOR] Order #: [id number] FUTURE ACTH BLD [SQACTH] Order #: [id number] FUTURE T4/FTI/T4U [SND3JMN] Order #: [id number] FUTURE DHEA BLOOD [SQDHEA] Order #: [id number] FUTURE Problem List As Of Date: 11/16/2023 (None) Encounter Status:Closed by GIL SALINAS on 11/16/23 Normal [facility] FL esophagus ugion [place] esophagus ugi [facility] [place] [address] [place] [address] Fluoroscopy Report Signed Patient: Charly Foster MR#: [id number] 1015 : 2000 Acct:[id number] Age/Sex: 23 / F ADM Date: 11/07/23 Loc: XD Room: Type: [facility] CLI Attending Dr: Reji Bailey INSPECTOR AIDE Copies to: Reji Bailey APRN Ordering Provider: Reji Bailey APRN Date of Service: 11/07/23 FL/FL esophagus ugi: R11.0 - Nausea DOUBLE CONTRAST UPPER GI SERIES CLINICAL HISTORY: Nausea, upper abdominal pain. Dysphagia. COMPARISON: None TECHNIQUE: Double contrast upper GI series was performed. Cumulative Air Kerma in mGy: 104.63 mGy FINDINGS: Security Vehicle Patrol Officer image demonstrates no acute findings. No esophageal [...] ENDOSCOPY. Impression dictated by: Bautista Bowser Jr., Alana11/07/2023 12:54 PM Dictation Location: [place] [address] Transcribed By: [facility] 11/07/23 1254 Dictated By: Bautista Bowser Jr, DO 11/07/23 1250 Signed By: 11/07/23 1254 Normal [facility] MR head/brain wo/w conon MR head/brain wo/w con [facility] [place] [address] [place] [address] MRI Report Signed Patient: Charly Foster MR#: [id number] 1015 : 2000 Acct:[id number] Age/Sex: 23 / F ADM Date: 10/27/23 Loc: MR Room: Type: [facility] CLI Attending Dr: Bentley Byrne DO Copies [...] Puneet Patrick M.D.10/27/2023 7:53 PM Dictation Location: [place] [address] Transcribed By: [facility] 10/27/231952 Dictated By: Puneet Patrick II, MD 10/27/231944 Signed By: 10/27/231952 Normal [facility] Basophils Auto (Bld) [#/Vol] on 10-10-2023 Basophils (Bld) [#/Vol] 0.1 10 3/uL 0.0-0.1 [facility] Basophils/100 WBC Auto (Bld) on 10-10-2023 Basophils/100 WBC (Bld) 0.5 % 0.2-2.0 [facility] Eosinophils/100 WBC Auto (Bl d)on 10-10-2023 Eosinophils/100 WBC (Bld) 0.8 % 0.9-7.0 [facility] Erythrocyte distribution wid th Auto (RBC) [Ratio]on 10-10-2023 Erythrocyte distribution width (RBC) [Ratio] 12.3 % 11.0-15.0 [facility] Estimated glomerular filtrat ion rate (GFR) non- Americanon 10-10-2023 GFR/1.73 sq M.predicted among non-blacks MDRD (S/P/Bld) [Vol rate/Area] mL/min/{1.73_m2} >=60 [facility] Hematocrit Auto (Bld) [Volum e fraction]on 10-10-2023 Hematocrit (Bld) [Volume fraction] 43.6 % 36.0-48.0 [facility] Hemoglobin [Mass/volume] in Bloodon 10-10-2023 Hemoglobin (Bld) [Mass/Vol] 15.0 g/dL 12.0-16.0 [facility] Laboratory - Chemistry and C hemistry - challengeon 10-10-2023 Calcium [Mass/Vol] 8.4 mg/dL 8.5-10.1 [facility] Chloride [Moles/Vol] 104 mmol/L 98-107 [facility] CO2 [Moles/Vol] 27.2 mmol/L 21.0-32.0 [facility] Creatinine [Mass/Vol] 0.81 mg/dL 0.55-1.02 [facility] GFR/1.73 sq M.predicted MDRD (S/P/Bld) [Vol rate/Area] mL/min/{1.73_m2} >=60 [facility] Glucose [Mass/Vol] 98 mg/dL 74-106 [facility] Potassium [Moles/Vol] 3.7 mmol/L 3.5-5.1 [facility] Sodium [Moles/Vol] 140 mmol/L 136-145 [facility] TSH Qn 0.840 m[IU]/L 0.358-3.740 [facility] Urea nitrogen [Mass/Vol] 10.0 mg/dL 7.0-18.0 [facility] Urea nitrogen/Creatinin e [Mass ratio] 12.3 mg/mg [facility] Laboratory - Hematology and Cell countson 10-10-2023 ESR (Bld) [Velocity] 4 mm/h <=20 [facility] Immature granulocytes/100 WBC (Bld) 0.1 % 0.0-0.5 [facility] Leukocytes [#/volume] correc jeri for nucleated erythrocytes in Blood by Automated counon 10-10-2023 WBC corrected for nucl RBC Auto (Bld) [#/Vol] 11.0 10 3/uL 4.0-11.0 [facility] Lymphocytes Auto (Bld) [#/Vo l]on 10-10-2023 Lymphocytes (Bld) [#/Vol] 2.0 10 3/uL 1.2-3.8 [facility] Lymphocytes/100 WBC Auto (Bl d)on 10-10-2023 Lymphocytes/100 WBC (Bld) 17.9 % 20.5-60.0 [facility] MCH Auto (RBC) [Entitic mass ]on 10-10-2023 MCH (RBC) [Entitic mass] 31.2 pg 26.7-34.0 [facility] MCHC Auto (RBC) [Mass/Vol]on 10-10-2023 MCHC (RBC) [Mass/Vol] 34.4 g/dL 29.9-35.2 [facility] MCV Auto (RBC) [Entitic vol] on 10-10-2023 MCV (RBC) [Entitic vol] 90.6 fL 81.0-99.0 [facility] Monocytes Auto (Bld) [#/Vol] on 10-10-2023 Monocytes (Bld) [#/Vol] 0.8 10 3/uL 0.3-0.8 [facility] Monocytes/100 WBC Auto (Bld) on 10-10-2023 Monocytes/100 WBC (Bld) 6.9 % 1.7-12.0 [facility] Neutrophils Auto (Bld) [#/Vo l]on 10-10-2023 Neutrophils (Bld) [#/Vol] 8.1 10 3/uL 1.4-6.5 [facility] Neutrophils/100 WBC Auto (Bl d)on 10-10-2023 Neutrophils/100 WBC (Bld) 73.8 % 43.0-75.0 [facility] No Panel Informationon 10-09 Eosinophils # (Auto) 0.1 10 3/uL 0.0-0.7 [facility] Immature Granulocyte # (Auto) 0.01 10 3/uL 0.00-0.03 [facility] Platelet mean volume Auto (B ld) [Entitic vol]on 10-10-2023 Platelet mean volume (Bld) [Entitic vol] 10.2 fL 9.5-13.5 [facility] Platelets Auto (Bld) [#/Vol] on 10-10-2023 Platelets (Bld) [#/Vol] 262 10 3/uL 150-450 [facility] RBC Auto (Bld) [#/Vol]on RBC (Bld) [#/Vol] 4.81 10 6/uL 4.20-5.40 [facility] Serum or plasma anion gap de terminationon 10-10-2023 Anion gap [Moles/Vol] 12.5 mmol/L [facility] Serum or plasma free cefurox madeline measurement (mass/volume)on 10-10-2023 Cefuroxime free [Mass/Vol] Negative Negative [facility] Comment on above: Performed at: [place] [id number] Director: Garret Bledsoe PhD, Phone: [phone] COVID + FLU Quick Testingon 07-05-2023 SARS-CoV-2 (COVID-19) RNA FRANKLIN+probe Ql (Unsp spec) Negative [facility] [employer] Other COVID + FLU Quick Testing Negative [facility] [employer] Other Test, Urineon Beta HCG ( test) Ql (U) Negative [facility] [employer] Other XR hand RT min 3V*on 023 XR hand RT min 3V* [facility] [employer] Other XR hand RT min 3V* [facility] [place] [employer] Other XR hand RT min 3V* [address] [facility] [employer] Other XR hand RT min 3V* CHRISTIAN Rodrigues [address] [employer] Other XR hand RT min 3V* XRay Report [employer] Other XR hand RT min 3V* Signed [employer] Other XR hand RT min 3V* Patient: Milan Foster MR#: [id number] [employer] Other XR hand RT min 3V* 1015 [employer] Other XR hand RT min 3V* : 2000 Acct:[id number] [employer] Other XR hand RT min 3V* Age/Sex: 23 / F ADM Date: 06/24/23 [employer] Other XR hand RT min 3V* Loc: XDUCLY Room: pe: REG CLI [employer] Other XR hand RT min 3V* Attending Dr: Adriana Stallworth [facility] [employer] Other XR hand RT min 3V* Copies to: Adriana silva [facility] [employer] Other XR hand RT min 3V* Ordering Provider: Luther Stallworth [facility] [employer] Other XR hand RT min 3V* Date of Service: 06/24/23 [employer] Other XR hand RT min 3V* [id number]) XR/XR hand RT min 3V*: Injury [employer] Other XR hand RT min 3V* 3 views right hand p lucila film [employer] Other XR hand RT min 3V* COMPARISON: None [employer] Other XR hand RT min 3V* HISTORY: Right hand injury [employer] Other XR hand RT min 3V* ACUTE FINDINGS: None [employer] Other XR hand RT min 3V* DEGENERATIVE CHANGE: Unremarkable [employer] Other XR hand RT min 3V* SOFT TISSUE FINDINGS : Unremarkable [employer] Other XR hand RT min 3V* JOINT EFFUSION: None [employer] Other XR hand RT min 3V* POSTOP CHANGES: None [employer] Other XR hand RT min 3V* BONY MINERALIZATION: Adequate [employer] Other XR hand RT min 3V* X R/XR hand RT min 3V* [employer] Other XR hand RT min 3V* IMPRESSION: No acute findings [employer] Other XR hand RT min 3V* Impression dictated by: Saul Staton M.D.06/24/2023 10:17 AM [employer] Other XR hand RT min 3V* Dictation Location: [place] [address] [employer] Other XR hand RT min 3V* Transcribed By: JONATHAN 06/24/23 1017 [employer] Other XR hand RT min 3V* Dictated By: Yung Staton DO 06/24/23 1015 [employer] Other XR hand RT min 3V* Signed By: [employer] Other XR hand RT min 3V* 06/24/23 1017 [facility] Other XR hand RT min 3V* [facility] [place] [address] [place] [address] XRay Report Signed Patient: Charly Foster MR#: [id number] 1015 : 2000 Acct:[id number] Age/Sex: 23 / F ADM Date: 06/24/23 Loc: XDUCLY Room: Type: [facility] Attending Dr: Adriana Stallworth APRN Copies [...] Saul Staton M.D.06/24/2023 10:17 AM Dictation Location: [facility] Transcribed By: [facility] 06/24/23 1017 Dictated By: Saul Staton DO 06/24/23 1015 Signed By: 06/24/23 1017 Normal [facility] Urinalysis - AUTOMATEDon Appearance (U) cloudy [employer] Other Bilirubin Ql (U) small [employer] Other Color (U) adriana [employer] Other Glucose Ql (U) Negative [employer] Other Hemoglobin Ql (U) [employer] Other Ketones Ql (U) Negative [employer] Other Leukocyte esterase Test strip Ql (U) [employer] Other Nitrite Ql (U) Positive [employer] Other pH (U) 6.5 [pH] [employer] Other Protein Ql (U) >300 [employer] Other Specific gravity (U) [Rel density] >1.030 [employer] Other Urobilinogen (U) [Mass/Vol] 1.0 mg/dL [employer] Other Urinalysis - AUTOMATED [employer] Other Urine Cultureon 01-15-2023 Bacteria identified Cx Nom (U) [employer] Other URon 12-02-2022 , QUAL Negative Normal NEGATIVE [facility] [facility] Comment on above: Performed By: #### P REGU #### [facility] [address] [place] [address] Dr. Corie Frias XR ANKLE LT MIN [...] No acute bony abnormality. Electronically authenticated by: [employer] Date: 2022-12-02 19:47 Normal [facility] XR FOOT LT MIN 3 VIEWSon XR FOOT LT MIN 3 VIEWS XR FOOT LT MIN 3 VIEWS: HISTORY: Traumatic AND/OR non-traumatic injury. COMPARISON: 01/05/2022. TECHNIQUE: 3 radiographic view(s) obtained. FINDINGS: BONES/JOINT SPACES: There is no acute fracture or dislocation. Joint spaces appear normal. There are no other significant findings. SOFT TISSUES: Normal. IMPRESSION: No acute bony abnormality. Electronically authenticated by: [email or web address] Date: 2022-12-02 19:48 Normal [facility] COVID + FLU Quick Testingon 09-10-2022 SARS-CoV-2 (COVID-19) RNA FRANKLIN+probe Ql (Unsp spec) Negative [employer] Other COVID + FLU Quick Testing Negative [employer] Other Quick Strepon 09-10-2022 S. pyogenes Org specific cx Ql (Throat) Negative [employer] Other Quick Strep [facility] [employer] Other COVID/FLU RT-PCRon SARS-CoV-2 (COVID-19) RNA FRANKLIN+probe Ql (Unsp spec) Negative [employer] Other COVID/FLU RT-PCR Negative [facility] [employer] Other Progress Noteon 08-20-2021 [employer] Authentication Interface Message Text Previous Diagnoses: 1. [...] valve pr (more content not included)... Normal [facility] COVID Quick Testingon 2020 Result Negative [employer] Other Vital Signs Date Time Vital Sign Value Performing Clinician Facility 06-26-2024 14:51-0500 Body mass index (BMI) [Ratio] 17.16 kg/m2 [employer] Work Phone: [facility] 06-26-2024 14:51-0500 Body weight 46.77 kg Oscar Irene DO Work Phone: [facility] 06-26-2024 14:51-0500 Diastolic blood pressure 62 mm[Hg] Oscar Irene DO Work Phone: [facility] 06-26-2024 14:51-0500 Systolic blood pressure 98 mm[Hg] Oscar Irene DO Work Phone: [facility] 05-29-2024 09:03-0500 Body mass index (BMI) [Ratio] 17.31 kg/m2 Sera REYNOLDS Work Phone: [facility] 05-29-2024 09:03-0500 Body weight 47.17 kg Sera REYNOLDS Work Phone: [facility] 05-29-2024 09:03-0500 Diastolic blood pressure 60 mm[Hg] Sera REYNOLDS Work Phone: [facility] 05-29-2024 09:03-0500 Systolic blood pressure 100 mm[Hg] Sera REYNOLDS Work Phone: [facility] 05-11-2024 08:44-0400 Body mass index (BMI) [Ratio] 18.12 kg/m2 Radha Laguna MD Work Phone: [facility] 05-11-2024 08:44-0400 Body weight 50 kg Radha Laguna MD Work Phone: [facility] 05-11-2024 08:44-0400 Diastolic blood pressure 54 mm[Hg] Radha Laguna MD Work Phone: [facility] 05-11-2024 08:44-0400 Heart rate 53 /min Radha Laguna MD Work Phone: [facility] 05-11-2024 08:44-0400 Systolic blood pressure 91 mm[Hg] Radha Laguna MD Work Phone: [facility] 04-18-2024 14:15-0400 Body height 165.1 cm MD [employer] Work Phone: [facility] 04-18-2024 14:15-0400 Body mass index (BMI) [Ratio] 17.9 kg/m2 MD [employer] Work Phone: [facility] 04-18-2024 14:15-0400 Body weight 49 kg MD [employer] Work Phone: [facility] 04-12-2024 11:44-0400 Body height 165.1 cm MD [employer] Work Phone: [facility] 04-12-2024 11:44-0400 Body mass index (BMI) [Ratio] 17.9 kg/m2 MD [employer] Work Phone: [facility] 04-12-2024 11:44-0400 Body weight 48.98 kg MD [employer] Work Phone: [facility] 04-12-2024 11:44-0400 Diastolic blood pressure 70 mm[Hg] MD [employer] Work Phone: [facility] 04-12-2024 11:44-0400 Heart rate 72 /min MD [employer] Work Phone: [facility] 04-12-2024 11:44-0400 Respiratory rate 18 /min MD [employer] Work Phone: [facility] 04-12-2024 11:44-0400 SaO2% (BldA) [Mass fraction] 96 % MD [employer] Work Phone: [facility] 04-12-2024 11:44-0400 Systolic blood pressure 108 mm[Hg] MD oMnster Brothers Work Phone: [facility] 02-15-2024 13:20-0400 Body height 165.1 cm MD [employer] Work Phone: [facility] 02-15-2024 13:20-0400 Body mass index (BMI) [Ratio] 17.8 kg/m2 MD [employer] Work Phone: [facility] 02-15-2024 13:20-0400 Body weight 48.53 kg MD [employer] Work Phone: [facility] 01-06-2024 09:35-0400 Body height 165.1 cm MD [employer] Work Phone: [facility] 01-06-2024 09:35-0400 Body mass index (BMI) [Ratio] 17.6 kg/m2 MD [employer] Work Phone: [facility] 01-06-2024 09:35-0400 Body weight 48.08 kg MD [employer] Work Phone: [facility] 01-06-2024 09:35-0400 Diastolic blood pressure 78 mm[Hg] MD [employer] Work Phone: [facility] 01-06-2024 09:35-0400 Heart rate 105 /min MD [employer] Work Phone: [facility] 01-06-2024 09:35-0400 Respiratory rate 18 /min MD [employer] Work Phone: [facility] 01-06-2024 09:35-0400 SaO2% (BldA) [Mass fraction] 98 % MD [employer] Work Phone: [facility] 01-06-2024 09:35-0400 Systolic blood pressure 100 mm[Hg] MD [employer] Work Phone: [facility] 12-05-2023 10:52-0400 Body height 165.1 cm MD [employer] Work Phone: [facility] 12-05-2023 10:52-0400 Body mass index (BMI) [Ratio] 17.9 kg/m2 MD [employer] Work Phone: [facility] 12-05-2023 10:52-0400 Body weight 48.7 kg MD [employer] Work Phone: [facility] 12-05-2023 10:52-0400 Diastolic blood pressure 73 mm[Hg] MD [employer] Work Phone: [facility] 12-05-2023 10:52-0400 Heart rate 109 /min MD [employer] Work Phone: [facility] 12-05-2023 10:52-0400 Systolic blood pressure 102 mm[Hg] MD [employer] Work Phone: [facility] 11-18-2023 09:01-0400 Body height 166.1 cm Monserrat Nava MD Work Phone: [facility] 11-18-2023 09:01-0400 Body mass index (BMI) [Ratio] 17.83 kg/m2 Monserrat Nava MD Work Phone: [facility] 11-18-2023 09:01-0400 Body temperature 97.7 [degF] oMnserrat Nava MD Work Phone: [facility] 11-18-2023 09:01-0400 Body weight 49.2 kg Monserrat Nava MD Work Phone: [facility] 11-18-2023 09:01-0400 Diastolic blood pressure 83 mm[Hg] Monserrat Nava MD Work Phone: [facility] 11-18-2023 09:01-0400 Heart rate 104 /min Monserrat Nava MD Work Phone: [facility] 11-18-2023 09:01-0400 Respiratory rate 18 /min Monserrat Nava MD Work Phone: [facility] 11-18-2023 09:01-0400 SaO2% (BldA) [Mass fraction] 99 % Monserrat Nava MD Work Phone: [facility] 11-18-2023 09:01-0400 Systolic blood pressure 116 mm[Hg] Monserrat Nava MD Work Phone: [facility] 10-21-2023 09:33-0400 Body height 165.1 cm [facility] 10-21-2023 09:33-0400 Body mass index (BMI) [Ratio] 18.3 kg/m2 [facility] 10-21-2023 09:33-0400 Body weight 49.89 kg [facility] 10-10-2023 13:00-0400 Body height 165.1 cm [facility] 10-10-2023 13:00-0400 Body mass index (BMI) [Ratio] 18.1 kg/m2 [facility] 10-10-2023 13:00-0400 Body weight 49.44 kg [facility] 10-10-2023 13:00-0400 Diastolic blood pressure 78 mm[Hg] [facility] 10-10-2023 13:00-0400 Heart rate 76 /min [facility] 10-10-2023 13:00-0400 Systolic blood pressure 112 mm[Hg] [facility] 08-23-2023 11:30-0500 Body height 165.1 cm [facility] 08-23-2023 11:30-0500 Body weight 50.71 kg [facility] 08-23-2023 11:30-0500 Diastolic blood pressure 73 mm[Hg] [facility] 08-23-2023 11:30-0500 Systolic blood pressure 102 mm[Hg] [facility] 07-05-2023 18:00-0500 Body height 165.1 cm Kay Woodwardmond Other [facility] [employer] Other 07-05-2023 18:00-0500 Body mass index (BMI) [Ratio] 19.97 kg/m2 Kay Leta Other [employer] Other 07-05-2023 18:00-0500 Body temperature 99.1 [degF] Kay Woodwardmond Other [employer] Other 07-05-2023 18:00-0500 Body weight 54.43 kg Kay Woodwardmond Other [employer] Other 07-05-2023 18:00-0500 Respiratory rate 18 /min Kay Woodwardmond Other [employer] Other 07-05-2023 18:00-0500 SaO2% (BldA) [Mass fraction] 99 % Kay Woodwardmond Other [employer] Other 06-24-2023 09:45-0500 Body height 165.1 cm Adriana Stallworth Other [employer] Other 06-24-2023 09:45-0500 Body mass index (BMI) [Ratio] 20.13 kg/m2 Adriana Stallworth Other [employer] Other 06-24-2023 09:45-0500 Body temperature 97.7 [degF] Adriana Stallworth Other [employer] Other 06-24-2023 09:45-0500 Body weight 54.89 kg Adriana Stallworth Other [employer] Other 06-24-2023 09:45-0500 Respiratory rate 20 /min Adriana Stallworth Other [employer] Other 06-24-2023 09:45-0500 SaO2% (BldA) [Mass fraction] 98 % Adriana Stallworth Other [employer] Other 01-15-2023 11:40-0400 Body height 165.1 cm Kay Gillette Other [employer] Other 01-15-2023 11:40-0400 Body mass index (BMI) [Ratio] 19.97 kg/m2 Kay Woodwardmond Other [employer] Other 01-15-2023 11:40-0400 Body temperature 97.3 [degF] Kay Woodwardmond Other [employer] Other 01-15-2023 11:40-0400 Body weight 54.43 kg Kay Woodwardmond Other [employer] Other 01-15-2023 11:40-0400 Diastolic blood pressure 68 mm[Hg] Kay Woodwardmond Other [employer] Other 01-15-2023 11:40-0400 Respiratory rate 18 /min Kay Leta Other [employer] Other 01-15-2023 11:40-0400 SaO2% (BldA) [Mass fraction] 98 % Kay Leta Other [employer] Other 01-15-2023 11:40-0400 Systolic blood pressure 108 mm[Hg] Kay Leta Other [employer] Other 09-10-2022 18:40-0500 Body height 165.1 cm Kay Leta Other [employer] Other 09-10-2022 18:40-0500 Body mass index (BMI) [Ratio] 19.97 kg/m2 Kay Leta Other [employer] Other 09-10-2022 18:40-0500 Body temperature 98.7 [degF] Kay Leta Other [employer] Other 09-10-2022 18:40-0500 Body weight 54.43 kg Kay Leta Other [employer] Other 09-10-2022 18:40-0500 Respiratory rate 18 /min Kay Leta Other [employer] Other 09-10-2022 18:40-0500 SaO2% (BldA) [Mass fraction] 99 % Kay Leta Other [employer] Other 06-14-2022 17:25-0500 Body height 165.1 cm Kay Leta Other [employer] Other 06-14-2022 17:25-0500 Body mass index (BMI) [Ratio] 19.13 kg/m2 Kay Gillette Other [employer] Other 06-14-2022 17:25-0500 Body temperature 100.7 [degF] Kay Gillette Other [employer] Other 06-14-2022 17:25-0500 Body weight 52.16 kg Kay Gillette Other [employer] Other 06-14-2022 17:25-0500 Respiratory rate 18 /min Kay Gillette Other [employer] Other 06-14-2022 17:25-0500 SaO2% (BldA) [Mass fraction] 99 % Kay Gillette Other [employer] Other 06-13-2021 15:30-0500 Body height 165.1 cm Adriana Ginty Other [employer] Other 06-13-2021 15:30-0500 Body mass index (BMI) [Ratio] 17.47 kg/m2 Adriana Ginty Other [employer] Other 06-13-2021 15:30-0500 Body temperature 97.9 [degF] Adriana Ginty Other [employer] Other 06-13-2021 15:30-0500 Body weight 47.63 kg Adriana Ginty Other [employer] Other 06-13-2021 15:30-0500 SaO2% (BldA) [Mass fraction] 98 % Adriana Ginty Other [employer] Other 04-26-2021 14:20-0400 Body height 165.1 cm Kay Gillette Other [employer] Other 04-26-2021 14:20-0400 Body mass index (BMI) [Ratio] 17.47 kg/m2 Kay Gillette Other [employer] Other 04-26-2021 14:20-0400 Body temperature 98.7 [degF] Kay Gillette Other [employer] Other 04-26-2021 14:20-0400 Body weight 47.63 kg Kay Gillette Other [employer] Other 04-26-2021 14:20-0400 SaO2% (BldA) [Mass fraction] 98 % Kay Gillette Other [employer] Other Encounters Encounter Date Encounter Type Care Provider Facility Start: 07-04-2024 End: 07-04-2024 ambulatory LILIANA ZHENG Not Available Start: 07-02-2024 End: 07-02-2024 Bamboo flowsheet Liliana Zheng DRUG DISCOVERY INFORMATICS SPECIALIST [facility] Start: 07-02-2024 End: 07-02-2024 Bamboo flowsheet Liliana Zheng DRUG DISCOVERY INFORMATICS SPECIALIST [facility] Start: 07-02-2024 End: 07-02-2024 Clinical Support Liliana Zheng DRUG DISCOVERY INFORMATICS SPECIALIST [facility] Comment on above: Fibromyalgia (Primar y Dx) Start: 06-29-2024 End: 06-29-2024 Bamboo flowsheet Liliana Zheng DRUG DISCOVERY INFORMATICS SPECIALIST [facility] Start: 06-29-2024 End: 06-29-2024 Bamboo flowsheet Liliana Zheng DRUG DISCOVERY INFORMATICS SPECIALIST [facility] Start: 06-29-2024 End: 06-29-2024 Clinical Support Liliana Zheng DRUG DISCOVERY INFORMATICS SPECIALIST [facility] Comment on above: Fibromyalgia (Primar y Dx) Start: 06-26-2024 End: 06-26-2024 Office outpatient visit 15 minutes Oscar Irene DO Work Phone: [facility] Comment on above: Preop examination; PCOS (polycystic ovarian syndrome); Pelvic pain in female Start: 06-26-2024 End: 06-26-2024 Preprocedural examination done Oscar Irene DO Work Phone: [facility] Work Phone: Start: 06-26-2024 End: 06-26-2024 ambulatory OSCAR IRENE Not Available Start: 06-26-2024 End: 06-26-2024 Bamboo flowsheet Oscar Irene DO Work Phone: [facility] Start: 06-26-2024 End: 06-26-2024 Bamboo flowsheet Oscar Irene DO Work Phone: [facility] Start: 06-25-2024 End: 06-25-2024 Bamboo flowsheet Liliana Dahm DRUG DISCOVERY INFORMATICS SPECIALIST [facility] Start: 06-25-2024 End: 06-25-2024 Bamboo flowsheet Liliana Dahm DRUG DISCOVERY INFORMATICS SPECIALIST [facility] Start: 06-25-2024 End: 06-25-2024 Clinical Support Liliana Zheng DRUG DISCOVERY INFORMATICS SPECIALIST [facility] Comment on above: Fibromyalgia (Primar y Dx) Start: 06-15-2024 End: 06-15-2024 Bamboo flowsheet Liliana Dahm DRUG DISCOVERY INFORMATICS SPECIALIST [facility] Start: 06-15-2024 End: 06-15-2024 Bamboo flowsheet Liliana Dahm DRUG DISCOVERY INFORMATICS SPECIALIST [facility] Start: 06-15-2024 End: 06-15-2024 Clinical Support Liliana Zheng DRUG DISCOVERY INFORMATICS SPECIALIST [facility] Comment on above: Fibromyalgia (Primar y Dx) Start: 06-08-2024 End: 06-08-2024 Bamboo flowsheet Liliana Dahm DRUG DISCOVERY INFORMATICS SPECIALIST [facility] Start: 06-08-2024 End: 06-08-2024 Bamboo flowsheet Liliana Dahm DRUG DISCOVERY INFORMATICS SPECIALIST [facility] Start: 06-08-2024 End: 06-08-2024 Clinical Support Liliana Dahm DRUG DISCOVERY INFORMATICS SPECIALIST [facility] Comment on above: Fibromyalgia (Primar y Dx) Start: 06-04-2024 End: 06-04-2024 ambulatory Liliana Dahm DRUG DISCOVERY INFORMATICS SPECIALIST [facility] Comment on above: Fibromyalgia (Primar y Dx) Start: 06-04-2024 End: 06-04-2024 Bamboo flowsheet Liliana Dahm DRUG DISCOVERY INFORMATICS SPECIALIST [facility] Start: 06-04-2024 End: 06-04-2024 Bamboo flowsheet Liliana Dahm DRUG DISCOVERY INFORMATICS SPECIALIST [facility] Start: 06-01-2024 End: 06-01-2024 ambulatory Liliana Dahm DRUG DISCOVERY INFORMATICS SPECIALIST [facility] Comment on above: Fibromyalgia (Primar y Dx) Start: 06-01-2024 End: 06-01-2024 Bamboo flowsheet Liliana Dahm DRUG DISCOVERY INFORMATICS SPECIALIST [facility] Start: 06-01-2024 End: 06-01-2024 Bamboo flowsheet Liliana Dahm DRUG DISCOVERY INFORMATICS SPECIALIST [facility] Start: 05-29-2024 End: 05-29-2024 ambulatory SERA HEATH Not Available Start: 05-29-2024 End: 05-29-2024 Office outpatient visit 15 minutes Sera Heath PA Work Phone: [facility] Comment on above: Cyst of ovary, right ; History of PCOS; History of ovarian cyst; Generalized abdominal pain Start: 05-28-2024 End: 05-28-2024 ambulatory Liliana Dahm DRUG DISCOVERY INFORMATICS SPECIALIST [facility] Comment on above: Fibromyalgia (Primar y Dx) Start: 05-28-2024 End: 05-28-2024 Bamboo flowsheet Liliana Dahm DRUG DISCOVERY INFORMATICS SPECIALIST [facility] Start: 05-28-2024 End: 05-28-2024 Bamboo flowsheet Liliana Dahm DRUG DISCOVERY INFORMATICS SPECIALIST [facility] Start: 05-22-2024 End: 05-22-2024 ambulatory Gabriela Finneran PT [facility] Comment on above: Fibromyalgia (Primar y Dx) Start: 05-22-2024 End: 05-22-2024 Bamboo flowsheet Gabriela Finneran PT [facility] Start: 05-22-2024 End: 05-22-2024 Bamboo flowsheet Gabriela Finneran PT [facility] Start: 05-11-2024 End: 05-11-2024 ambulatory RADHA LAGUNA Facility:[facility] Start: 05-11-2024 End: 05-11-2024 Patient encounter procedure Radha Laguna MD Work Phone: Pain Management Comment on above: Fibromyalgia (Primar y Dx); Chronic pain syndrome Start: 04-30-2024 End: 04-30-2024 Telephone encounter Radha Laguna MD Work Phone: Pain Management Comment on above: Appointment (New pat ient call) Start: 04-27-2024 End: 04-27-2024 Patient encounter procedure No Pcp INSPECTOR [facility] Start: 04-27-2024 End: 04-27-2024 ambulatory No Pcp INSPECTOR [facility] Comment on above: Chronic pain syndrom e (Primary Dx) Start: 04-27-2024 End: 04-27-2024 Telemedicine consultation with patient Hussein Browne MD Work Phone: Neurology Start: 04-18-2024 End: 04-18-2024 ambulatory MD [employer] Work Phone: [facility] Work Phone: Start: 04-18-2024 End: 04-18-2024 Patient encounter procedure MD [employer] Work Phone: [facility] Phys[facility] Gastroenterology Work Phone: Start: 04-14-2024 Non-patient / Non-visit MD Becky Brothers Work Phone: [facility] Physician [facility] Work Phone: Start: 04-12-2024 End: 04-12-2024 ambulatory HILLARY TY Not Available Start: 04-12-2024 End: 04-12-2024 ambulatory MD [employer] Work Phone: [facility] Work Phone: Start: 04-12-2024 End: 04-12-2024 Patient encounter procedure MD [employer] Work Phone: [facility] Physician [facility] Cardiology Work Phone: Start: 04-10-2024 End: 04-11-2024 Treatment Hillary Kelbley DRUG DISCOVERY INFORMATICS SPECIALIST [facility] Comment on above: Patellofemoral disor garth of both knees (Primary Dx); Pain in both knees, unspecified chronicity Start: 04-10-2024 End: 04-10-2024 Bamboo flowsheet Hillary Kelbley DRUG DISCOVERY INFORMATICS SPECIALIST [facility] Start: 04-10-2024 End: 04-10-2024 Bamboo flowsheet Hillary Kelbley DRUG DISCOVERY INFORMATICS SPECIALIST [facility] Start: 04-03-2024 End: 04-03-2024 ambulatory HILLARY KELBLEY Not Available Start: 04-03-2024 End: 04-03-2024 Patient encounter procedure MD [employer] Work Phone: [facility]-Electrodiagnostics Work Phone: Start: 04-03-2024 End: 04-03-2024 ambulatory MD [employer] Work Phone: [facility] Work Phone: Start: 03-29-2024 End: 03-30-2024 ambulatory HILLARY KELBLEY Not Available Start: 03-28-2024 End: 03-28-2024 ambulatory MOHAN T BLACKSTON Not Available Start: 03-20-2024 End: 03-20-2024 ambulatory HILLARY KELBLEY Not Available Start: 03-14-2024 End: 03-14-2024 ambulatory HILLARY KELBLEY Not Available Start: 03-08-2024 End: 03-08-2024 ambulatory MOHAN T BLACKSTON Not Available Start: 03-06-2024 End: 03-07-2024 ambulatory MOHAN T BLACKSTON Not Available Start: 03-01-2024 End: 03-02-2024 ambulatory HILLARY KELBLEY Not Available Start: 03-01-2024 Telephone encounter Hussein henderson MD Work Phone: Neurology Comment on above: Insurance Authorizat ion Start: 02-23-2024 End: 02-23-2024 ambulatory HILLARY KELBLEY Not Available Start: 02-21-2024 End: 02-21-2024 ambulatory KEEGAN PAUL Not Available Start: 02-15-2024 End: 02-15-2024 ambulatory MD [employer] Work Phone: [facility] Work Phone: Start: 02-15-2024 End: 02-15-2024 Patient encounter procedure MD [employer] Work Phone: [facility] Gastroenterology Work Phone: Start: 02-14-2024 End: 02-14-2024 ambulatory KEEGAN HARGROVEWILLIE Not Available Start: 02-09-2024 End: 02-10-2024 ambulatory HILLARY CRAWFORD Not Available Start: 02-07-2024 End: 02-08-2024 ambulatory MOHAN HUFFMAN Not Available Start: 01-10-2024 ambulatory MD Monster demarco Work Phone: [facility] Work Phone: Start: 01-10-2024 Non-patient / Non-visit MD Becky Brothers Work Phone: [facility] Work Phone: Start: 01-06-2024 End: 01-06-2024 ambulatory MD [employer] Work Phone: [facility] Work Phone: Start: 01-06-2024 End: 01-06-2024 Patient encounter procedure MD [employer] Work Phone: [facility] Cardiology Work Phone: Start: 12-12-2023 Telephone encounter [...] migrainosus Start: 12-09-2023 End: 12-09-2023 ambulatory MONSERRAT STEWARTI-SAMMIE Facility:[facility] Start: 12-05-2023 End: 12-05-2023 ambulatory MD [employer] Work Phone: [facility] Work Phone: Start: 12-05-2023 End: 12-05-2023 Patient encounter procedure MD [employer] Work Phone: [facility] Work Phone: Start: 11-23-2023 End: 11-23-2023 ambulatory MONSERRAT STEWARTI-SAMMIE Facility:[facility] Start: 11-23-2023 End: 11-23-2023 Subsequent hospital visit by physician Mri [facility] Carpenter (Lg Bore/1.5t) Radiology MRI Comment on above: Abnormal brain MRI [ R90.89] Start: 11-21-2023 Telephone encounter Monserrat Sparrow MD Work Phone: Endocrinology Comment on above: Received Outside Med ical Records Start: 11-18-2023 End: 11-18-2023 ambulatory MONSERRAT LOVE-SAMMIE Facility:[facility] Start: 11-18-2023 End: 11-18-2023 Patient encounter procedure Monsrerat Nava MD Work Phone: Endocrinology Comment on above: Abnormal brain MRI ( Primary Dx); Pituitary adenoma (HCC); Elevated prolactin level; Pituitary disorder (HCC); Generalized weakness; Generalized pain; Gait instability; Generalized abdominal pain Start: 11-17-2023 End: 11-17-2023 ambulatory MONSERRAT STEWARTI-SAMMIE Facility:[facility] Start: 11-16-2023 Telephone encounter Monserrat Sparrow MD Work Phone: [facility] 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 Start: 11-07-2023 End: 11-07-2023 Patient encounter procedure MD [employer] Work Phone: [facility] Work Phone: Start: 11-07-2023 End: 11-07-2023 ambulatory MD [employer] Work Phone: [facility] Work Phone: Start: 10-27-2023 End: 10-27-2023 Patient encounter procedure MD [employer] Work Phone: [facility]-MRI Main [place] Work Phone: Start: 10-27-2023 End: 10-27-2023 ambulatory MD [employer] Work Phone: [facility] Work Phone: Start: 10-21-2023 End: 10-21-[address] [facility] Work Phone: Start: 10-21-2023 End: 10-21-2023 Patient encounter procedure [facility] Gastroenterology Work Phone: Start: 10-10-2023 End: 10-10-[address] [facility] Work Phone: Start: 10-10-2023 End: 10-10-2023 Patient encounter procedure [facility] Work Phone: Start: 08-23-2023 End: 08-23-2023 Patient encounter procedure [facility]- Start: 07-05-2023 End: 07-05-2023 ambulatory Kay Gillette Other [employer] Other Start: 07-05-2023 Office outpatient vi sit 15 minutes Kay Gillette [facility] Start: 06-24-2023 Office outpatient vi sit 15 minutes Adriana Stallworth [facility] Start: 06-24-2023 End: 06-24-2023 Patient encounter procedure PHYSICIAN [facility] [place] Work Phone: Start: 06-24-2023 End: 06-24-2023 ambulatory PHYSICIAN NO [employer] [place] [employer] Other Start: 05-12-2023 (Televisit) Televisit [facility] Start: 05-12-2023 End: 05-12-2023 ambulatory [employer] Other [employer] Other Start: 01-17-2023 End: 01-17-2023 ambulatory Kay Leta Other [employer] Other Start: 01-17-2023 Telephone encounter Kay Gillette [facility] [place] Start: 01-15-2023 Office outpatient vi sit 15 minutes Kay Leta [facility] [place] Start: 01-15-2023 Telephone encounter [employer] [facility] [place] Start: 01-15-2023 End: 01-15-2023 ambulatory Kay Leta Other [employer] Other Start: 01-15-2023 End: 01-15-2023 Departed Referred GRAB HOOKER-C Kay Gillette Work Phone: [facility] [place] Work Phone: Start: 12-02-2022 End: 12-02-2022 ambulatory ANA RUBIO . Facility: Start: 09-16-2022 (Televisit) Televisit [facility] Start: 09-16-2022 End: 09-16-2022 ambulatory [employer] Other [employer] Other Start: 09-10-2022 End: 09-10-2022 ambulatory Kay Leta Other [employer] Other Start: 09-10-2022 Office outpatient vi sit 15 minutes Kay Leta [facility] [place] Start: 06-14-2022 End: 06-14-2022 ambulatory Kay Leta Other [employer] Other Start: 06-14-2022 Office outpatient vi sit 15 minutes Kay Leta [facility] [place] Start: 01-05-2022 End: 01-06-[address] [employer] Facility: Start: 06-13-2021 End: 06-13-2021 ambulatory Adriana Martin Other [facility] [employer] Other Start: 06-13-2021 Office outpatient vi sit 15 minutes Adriana Tetenty [facility] [place] Start: 04-26-2021 Office outpatient vi sit 15 minutes Kay Leta [facility] [place] Start: 10-29-2020 End: 10-29-2020 Patient encounter procedure Verito Wilkerson Work Phone: [facility] Start: 10-29-2020 Results Only Verito hua [...] 3:00 PM EST Office Visit Pain Management [address] [place], [place] [id number] Nery Steven PA-C [address] [place] [address] 3 month follow up Pain Management Comment on above: 3 month follow up Start: 07-23-2024 End: 07-23-2024 Patient encounter procedure 07/23/2024 10:50 AM EST Office Visit [facility] [address] [place] [address] [place] [address] Sera Heath PA [address] [place] [address] [facility] Start: 07-04-2024 End: 07-04-2024 Clinical Support 07/04/2024 3:00 PM EST Clinical Support [facility] [address] [place] [address] Liliana Zheng PTA [facility] Start: 07-03-2024 End: 07-03-2024 Patient encounter procedure 07/03/2024 2:00 PM EST Office Visit Neurology Pain [address] [place] [address] [place] [address] [place], [place] [id number] Chronic pain syndrome [G89.4] Neurology Pain Comment on above: Chronic pain syndrome [G89.4] Start: 07-02-2024 End: 07-02-2024 Clinical Support [facility] Comment on above: Arrived Start: 06-29-2024 End: 06-29-2024 ambulatory [facility] Comment on above: Arrived Start: 06-26-2024 End: 06-26-2024 Patient encounter procedure [facility] Comment on above: Arrived Start: 06-25-2024 End: 06-25-2024 ambulatory [facility] Comment on above: Arrived Start: 06-20-2024 End: 06-20-2024 ambulatory [facility] Start: 06-15-2024 End: 06-15-2024 ambulatory [facility] Comment on above: Arrived Start: 06-11-2024 End: 06-11-2024 ambulatory 06/11/2024 3:00 PM EST Treatment [facility] [address] [place] [phone] Liliana Zheng PTA [facility] Start: 06-11-2024 End: 06-11-2024 Patient encounter procedure 06/11/2024 1:00 PM EST Consult [facility] [address] [place] [phone] Oscar Bonilla DO [address] [place] [address] [facility] Start: 06-08-2024 End: 06-08-2024 ambulatory 06/08/2024 2:00 PM EST Treatment [facility] [address] [place] [address] Liliana Zheng PTA [facility] Start: 06-04-2024 End: 06-04-2024 ambulatory 06/04/2024 3:30 PM EST Treatment [facility] [address] [place] [address] Liliana Zheng PTA [facility] Start: 06-01-2024 End: 06-01-2024 ambulatory [facility] Comment on above: Arrived Start: 05-29-2024 End: 05-29-2024 Patient encounter procedure 05/29/2024 8:40 AM EST Office Visit [facility] [address] [place] [phone] Sera Heath PA [address] [place] [address] [facility] Start: 05-28-2024 End: 05-28-2024 ambulatory [facility] Comment on above: Arrived Start: 05-11-2024 End: 05-11-2024 Patient encounter procedure 05/11/2024 8:30 AM EDT Office Visit Pain Management [address] [place], [place] [phone] Radha Laguna MD [address] [place] [address] Chronic pain syndrome [G89.4] Pain Management Comment on above: Chronic pain syndrome [G89.4] Start: 04-12-2024 End: 04-12-2024 ambulatory 04/12/2024 4:30 PM EDT Treatment [facility] [address] [facility] [address] [place] [address] Hillary Crawford, DRUG DISCOVERY INFORMATICS SPECIALIST [facility] Start: 04-10-2024 End: 04-10-2024 ambulatory 04/10/2024 4:00 PM EDT Treatment [facility] [address] [facility] [address] [place] [phone] Hillary Crawford, DRUG DISCOVERY INFORMATICS SPECIALIST Arrived [facility] Comment on above: Arrived Start: 03-25-2024 Covid-19 Vaccine () Covid-19 Vaccine () [facility] Start: 03-25-2024 Influenza vaccination [facility] Start: 01-10-2024 Patient referral [facility] Work Phone: Start: 01-06-2024 [facility] Start: 12-09-2023 End: 12-09-2023 ambulatory 12/09/2023 3:00 PM EDT [facility] [address] [address] Hussein Browne MD [address] [place], [place] [phone] Generalized weakness [R53.1]; Generalized pain [R52]; Gait instability [R26.81]; Generalized abdominal pain Neurology Comment on above: Generalized weakness [R53.1]; Generalize d pain [R52]; Gait instability [R26.81]; Generalized abdominal pain Start: 12-09-2023 End: 03-09-2024 Cobalamin (Vitamin B12) [Mass/volume] in Serum or Plasma VITAMIN B12 Lab Routine Expected: 12/09/2023, Expires: 03/09/2024 [facility] Comment on above: Expected: 12/09/2023, Expires: Start: 12-09-2023 End: 03-09-2024 Creatine kinase [Enzymatic activity/volume] in Serum or Plasma CREATINE KINASE/CK Lab Routine Expected: 12/09/2023, Expires: 03/09/2024 [facility] Work Phone: Comment on above: Expected: 12/09/2023, Expires: Start: 11-23-2023 End: 11-15-2024 Corticotropin [Mass/volume] in Plasma ACTH BLD Lab Routine Hypophysitis ([facility]) Expected: 11/23/2023 (Approximate), Expires: 11/15/2024 [facility] Comment on above: Expected: 11/23/2023 (Approximate), Expi res: 11/15/2024 Start: 11-23-2023 End: 11-15-2024 Cortisol [Mass/volume] in Serum or Plasma CORTISOL, SERUM Lab Routine Hypophysitis ([facility]) Expected: 11/23/2023 (Approximate), Expires: 11/15/2024 [facility] Comment on above: Expected: 11/23/2023 (Approximate), Expi res: 11/15/2024 Start: 11-23-2023 End: 02-22-2024 Dehydroepiandrosterone (DHEA) [Mass/volume] in Serum or Plasma DHEA BLOOD Lab Routine Hypophysitis ([facility]) Expected: 11/23/2023 (Approximate), Expires: 02/22/2024 [facility] Comment on above: Expected: 11/23/2023 (Approximate), Expi res: 02/22/2024 Start: 11-23-2023 End: 11-15-2024 Estradiol (E2) [Mass/volume] in Serum or Plasma ESTRADIOL-17B BLD Lab Routine Hypophysitis ([facility]) Expected: 11/23/2023 (Approximate), Expires: 11/15/2024 [facility] Work Phone: Comment on above: Expected: 11/23/2023 (Approximate), Expi res: 11/15/2024 Start: 11-23-2023 End: 11-15-2024 Follitropin [Units/volume] in Serum or Plasma FOLLICLE STIMULATING HORMONE Lab Routine Hypophysitis ([facility]) Expected: 11/23/2023 (Approximate), Expires: 11/15/2024 [facility] Comment on above: Expected: 11/23/2023 (Approximate), Expi res: 11/15/2024 Start: 11-23-2023 End: 11-15-2024 INSULIN LIK GR FAC I INSULIN LIK GR FAC I Lab Routine Hypophysitis ([facility]) Expected: 11/23/2023 (Approximate), Expires: 11/15/2024 [facility] Comment on above: Expected: 11/23/2023 (Approximate), Expi res: 11/15/2024 Start: 11-23-2023 End: 11-15-2024 Lutropin [Units/volume] in Serum or Plasma LUTEINIZING HORMONE Lab Routine Hypophysitis ([facility]) Expected: 11/23/2023 (Approximate), Expires: 11/15/2024 [facility] Comment on above: Expected: 11/23/2023 (Approximate), Expi res: 11/15/2024 Start: 11-23-2023 End: 11-15-2024 Progesterone [Mass/volume] in Serum or Plasma PROGESTERONE Lab Routine Hypophysitis ([facility]) Expected: 11/23/2023 (Approximate), Expires: 11/15/2024 [facility] Comment on above: Expected: 11/23/2023 (Approximate), Expi res: 11/15/2024 Start: 11-23-2023 End: 11-15-2024 Prolactin [Mass/volume] in Serum or Plasma PROLACTIN Lab Routine Hypophysitis ([facility]) Expected: 11/23/2023 (Approximate), Expires: 11/15/2024 [facility] Comment on above: Expected: 11/23/2023 (Approximate), Expi res: 11/15/2024 Start: 11-23-2023 End: 11-15-2024 Somatostatin [Mass/volume] in Plasma GROWTH HORMONE Lab Routine Hypophysitis ([facility]) Expected: 11/23/2023 (Approximate), Expires: 11/15/2024 [facility] Comment on above: Expected: 11/23/2023 (Approximate), Expi res: 11/15/2024 Start: 11-23-2023 End: 11-15-2024 T4/FTI/T4U T4/FTI/T4U Lab Routine Hypophysitis ([facility]) Expected: 11/23/2023 (Approximate), Expires: 11/15/2024 [facility] Comment on above: Expected: 11/23/2023 (Approximate), Expi res: 11/15/2024 Start: 11-23-2023 End: 11-15-2024 Thyrotropin [Units/volume] in Serum or Plasma THYROID STIMULATING HORMONE Lab Routine Hypophysitis (HCC) Expected: 11/23/2023 (Approximate), Expires: 11/15/2024 [facility] Comment on above: Expected: 11/23/2023 (Approximate), Expi res: 11/15/2024 Start: 11-23-2023 End: 11-15-2024 Thyroxine (T4) free [Mass/volume] in Serum or Plasma T4 FREE/FREE THYROXINE Lab Routine Hypophysitis (HCC) Expected: 11/23/2023 (Approximate), Expires: 11/15/2024 [facility] Comment on above: Expected: 11/23/2023 (Approximate), Expi res: 11/15/2024 Start: 11-23-2023 End: 11-23-2023 Patient encounter procedure 11/23/2023 12:40 PM EDT Appointment Radiology MRI [address] [place] [address] Abnormal brain MRI [R90.89]; Pituitary adenoma (HCC) [D35.2]; Elevated prolactin level [R79.89]; Pituitary disorder (HCC) [E23.7] Radiology MRI Comment on above: Abnormal brain MRI [R90.89]; Pituitary a denoma (HCC) [D35.2]; Elevated prolactin level [R79.89]; Pituitary disorder (HCC) [E23.7] Start: 11-18-2023 End: 11-18-2023 Patient encounter procedure 11/18/2023 9:00 AM EDT Office Visit Endocrinology [address] [place] [address] Monserrat Nava MD [address] [place] [address] Pituitary Disease; pit panel ordered and pt aware Endocrinology Comment on above: Pituitary Disease; pit panel ordered and pt aware Start: 10-10-2023 Patient referral [facility] Work Phone: Start: 07-25-2023 Behavioral Health Screening Behavioral Health Screening [facility] Start: 03-25-2023 Covid-19 Vaccine ( season) Covid-19 Vaccine () [facility] Start: 03-25-2023 Covid-19 Vaccine ( season) Covid-19 Vaccine () [facility] Start: 01-15-2023 Bacteria identified in Urine by Culture [facility] Start: 2020 PAP TESTING PAP TESTING [facility] Start: 2020 Screening for malignant neoplasm of cervix [facility] Start: 03-25-2020 Influenza vaccination INFLUENZA (#1) [facility] Start: 2018 Hepatitis B Vaccine (1 of 3 - 19+ 3-dose series) Hepatitis B Vaccine (1 of 3 - 19+ 3-dose series) [facility] Start: 2018 Urine microalbumin profile [facility] Start: 2017 Anxiety Screening Anxiety Screening [facility] Start: 2017 CHLAMYDIA SCREENING (18-24) CHLAMYDIA SCREENING (18-24) [facility] Start: 2017 Depression Screening Depression Screening [facility] Start: 2017 GC (GONORRHEA) SCREENING (18-24) GC (GONORRHEA) SCREENING (18-24) [facility] Start: 2017 HEPATITIS C SCREENING HEPATITIS C SCREENING [facility] Start: 2017 Hepatitis C screening Hepatitis C Screening [facility] Start: 2017 HIV SCREENING HIV SCREENING [facility] Start: 2017 HIV screening HIV Screening [facility] Start: 2015 Meningococcal B Vaccine: Consider Based On Risk (1 of 2 - Patient Seeks Protection) Meningococcal B Vaccine: Consider Based On Risk (1 of 2 - Patient Seeks Protection) [facility] Start: 2014 HPV Vaccine (1 - 3-dose series) HPV Vaccine (1 - 3-dose series) [facility] Start: 2013 Peds To Adult Transition Annual Assessment Peds To Adult Transition Annual Assessment [facility] Start: 2011 Adult depression screening assessment DEPRESSION SCREENING [facility] Start: 2011 Peds To Adult Transition Initial Discussion Peds To Adult Transition Initial Discussion [facility] Start: 2010 HPV VACCINE (1 - 2-dose series) HPV VACCINE (1 - 2-dose series) [facility] Start: 2010 Urine microalbumin profile DTaP,Tdap,Td Vaccine (6 - Tdap) [facility] Cefuroxime free [Mas s/volume] in Serum or Plasma [facility] Fluoroscopy of upper gastrointestinal tract [facility] Patient referral [facility] Work Phone: PT ED PATIENT INFORMATION PT ED PATIENT INFORMATION Other 10/29/2020 [facility] US Heart Tr[facility]hor[facility] Immunizations Immunization Date Immunization Notes Care Provider Fa dion 04-06-2017 meningococcal oligosaccharide (groups A, C, Y and W-135) diphtheria toxoid conjugate vaccine (MCV4O) [employer] Other [facility] Payers Date Payer Category Payer Blue Cross Blue Shield [id number] 2023 Private Health Insurance [id number] 2023 Private Health Insurance [id number] 2023 Self-pay [id number] 2023 Unknown ANTHEM BLUE ACCE SS PPO [id number] 2023-Present [phone] [address] [place] [address] PPO [id number] 2023 Blue Cross Blue Shield [id number] 2016 Unknown [employer] BLUE CARD PPO [id number] 2016-Present PPO [id number] 1999 Unknown [id number] 2.16.840.1.097789.3.579.2 .593 1999 Unknown [id number] 2.16.840.1.623643.3.579.2 .593 1999 Unknown [id number] 2.16.840.1.738177.3.579.2 .1259 1999 Unknown [id number] 2.16.840.1.498219.3.579.2 .1259 1999 Unknown [id number] 2.16.840.1.701020.3.579.2 .1259 1999 Unknown [id number] 2.16.840.1.983184.3.579.2 .1259 1999 Unknown [id number] 2.16.840.1.447969.3.579.2 .1259 1999 Unknown [id number] 2.16.840.1.330247.3.579.2 .1259 1999 Unknown [id number] 2.16.840.1.058526.3.579.2 .1259 1999 Unknown [id number] 2.16.840.1.029249.3.579.2 .1259 1999 Unknown [id number] 2.16.840.1.030360.3.579.2 .1259 1999 Unknown [id number] 2.16.840.1.563090.3.579.2 .1259 1999 Unknown [id number] 2.16.840.1.869731.3.579.2 .1259 1999 Unknown [id number] 2.16.840.1.599480.3.579.2 .1259 1999 Unknown [id number] 2.16.840.1.933232.3.579.2 .1259 1999 Unknown [id number] 2.16.840.1.854070.3.579.2 .1259 1999 Unknown [id number] 2.16.840.1.417634.3.579.2 .1259 1999 Unknown [id number] 2.16.840.1.083646.3.579.2 .1259 1999 Unknown [id number] 2.16.840.1.544059.3.579.2 .1259 1999 Unknown [id number] 2.16.840.1.417922.3.579.2 .125 1999 Unknown [id number] 2.16.840.1.710070.3.579.2 .1258 1999 Unknown [id number] 2.16.840.1.818578.3.579.2 .125 1999 Unknown [id number] 2.16.840.1.128152.3.579.2 .1259 1999 Unknown [id number] 2.16.840.1.806739.3.579.2 .1259 1999 Unknown [id number] 2.16.840.1.975582.3.579.2 .9 1999 Unknown [id number] 2.16.840.1.287200.3.579.2 .1259 1999 Unknown [id number] 2.16.840.1.138532.3.579.2 .9 1999 Unknown [id number] 2.16.840.1.588212.3.579.2 .1259 1999 Unknown [id number] 2.16.840.1.210111.3.579.2 .1259 1959 [facility] [id number] Private Health Insurance [facility] [id number] Unknown [id number] 2.16.840.1.761205.19 Unknown [id number] 2.16.840.1.305811.3.579.2 .531 Unknown [id number] 2.16.840.1.815168.3.579.2 .531 Unknown [id number] 2.16.840.1.785533.3.579.2 .531 Unknown [id number] 2.16.840.1.461956.3.579.2 .531 Unknown [id number] 2.16.840.1.508286.3.579.2 .531 Social History Date Type Detail Facility Tobacco smoking stat [facility] Unknown if ever smoked [facility] Start: 1999 Sex Assigned At Not on file [facility] Start: 11-28-2020 End: 05-29-2024 Sex Assigned At [facility] Start: 2000 Sex Assigned At Female F [facility] Start: 06-08-2017 End: 11-18-2023 Tobacco smoking status SDIS Never smoked tobacco (finding) [facility] Start: 10-21-2023 End: 04-12-2024 Tobacco smoking status SDIS Smoker (finding) [facility] Start: 03-16-2023 Tobacco smoking stat [facility] Tobacco smoking consumption unknown [facility] Start: 11-28-2020 End: 05-29-2024 History of Social function [facility] National Score (1-10 0), lower number is lower risk Not on file [facility] Start: 11-18-2023 Tobacco use and exposure Smokeless tobacco non-user [facility] Start: 11-18-2023 End: 05-11-2024 Alcohol intake Current drinker of alcohol (finding) [facility] Start: 11-18-2023 Alcohol Comment rare [facility] Start: 02-15-2023 Gender identity Identifies as female gender (finding) [facility] Start: 02-15-2023 Sexual orientation Bisexual (finding ) [facility] Start: 03-16-2023 Tobacco use and exposure User of smokeless tobacco [facility] Start: 04-25-2023 End: 06-26-2024 Alcoholic beverage intake Lifetime non-drinker (finding) [facility] Start: 03-16-2023 Alcohol Comment Caffeine: none [facility] Clinical Notes 04-26-2021 to 06-26-2024 Corie Vargas - 06/26/2024 2:10 PM Marlon Zheng, DRUG DISCOVERY INFORMATICS SPECIALIST - 06/08/2024 2:00 PM Jermaineerick Zheng, DRUG DISCOVERY INFORMATICS SPECIALIST - 06/04/2024 3:30 PM Meghan Heath, PA - 05/29/2024 8:40 AM ESTPatient Instructions Note Date & Type Note Facility 06-26-2024 History of Presen t illness Narrative Reason for Appointment: Patient ID: Charly Foster is a 24 y.o. female who presents for Pre-op Visit Patient presents today for Pre Op appointment. Patient is scheduled to undergo Diagnostic Laparoscopy, possible NUBIA, possible FOE, possible BSO on 07/06/[address] Bonilla at [facility]. MEDICATIONS Current Outpatient Medications Medication Instructions albuterol HFA 90 mcg/act inhaler INHALE 2 (TWO) PUFFS BY MOUTH FOUR TIMES DAILY NEEDED amoxicillin (Amoxil) 500 MG tablet TAKE 2 TABLETS BY MOUTH as soon as possible, then TAKE 1 TABLET BY MOUTH EVERY 6 HOURS UNTIL GONE brompheniramine-pseudoephedrin e-DM 30-2-10 MG/5ML syrup TAKE 1 TEASPOONFUL BY MOUTH EVERY 4 HOURS NEEDED FOR COUGH busPIRone (BUSPAR) 10 mg, 2 times daily dicyclomine (BENTYL) 20 mg, Oral, Every 6 hours PRN metoprolol succinate XL (TOPROL-XL) 25 mg, 2 times daily pregabalin (LYRICA) 25 mg, 3 times daily Ubrelvy 50 mg ALLERGIES Allergies Allergen Reactions Codeine Hives Other Reaction(s): Unknown confusion Other Reaction(s): Other: See Comments, sensitive over dose as a child, Unknown confusion Other Reaction(s): Unknown confusion Atenolol Hives Other Reaction(s): Unknown Cefuroxime Hives Other Reaction(s): Unknown Ciprofloxacin Other Reaction(s): Unknown Other Reaction(s): GI Upset, Unknown, very nauseous Corticosteroids Hives Metoclopramide Hives Other Reaction(s): Unknown Prednisone Other Reaction(s): Unknown Rizatriptan Hives Other Reaction(s): Unknown Sulfamethoxazole Hives Sulfamethoxazole-Trimethoprim Other Reaction(s): Unknown Trimethoprim Hives Venlafaxine Hives Other Reaction(s): Unknown PROBLEMS Active Ambulatory Problems Diagnosis Date Noted Fibromyalgia 05/22/2024 Resolved Ambulatory Problems Diagnosis Date Noted No Resolved Ambulatory Problems Past Medical History: Diagnosis Date Anxiety MVP (mitral valve prolapse) HISTORY PAST MEDICAL HISTORY SOCIAL HISTORY Past Medical History: Diagnosis Date Anxiety MVP (mitral valve prolapse) Social History Tobacco Use Smoking status: Unknown Smokeless tobacco: Current Substance Use Topics Alcohol use: Never Comment: Caffeine: none Drug use: Never FAMILY HISTORY Family History Problem Relation Name Age of Onset Thyroid disease Mother Crohn's disease Father No Known Problems Brother Cancer Paternal Grandmother Diabetes Paternal Grandfather Heart disease Paternal Grandfather SURGICAL HISTORY Past Surgical History: Procedure Laterality Date ANKLE SURGERY Left 01/2021 ankle reconstructive surgery REVIEW OF SYSTEMS Review of Systems: Review of Systems Constitutional: Negative. HENT: Negative. Eyes: Negative. Respiratory: Negative. Cardiovascular: Negative. Gastrointestinal: Negative. Genitourinary: Positive for pelvic pain. Musculoskeletal: Negative. Skin: Negative. Neurological: Negative. All other systems reviewed and are negative. Hematological: Negative. Endocrine: Negative. Allergic/Immunologic: Negative. OBJECTIVE Objective: Physical Exam Constitutional: Appearance: Normal appearance. She is well-developed. Cardiovascular: Rate and Rhythm: Normal rate and regular rhythm. Pulmonary: Effort: Pulmonary effort is normal. Breath sounds: Normal breath sounds. Abdominal: General: Bowel sounds are normal. There is no distension. Palpations: Abdomen is soft. Tenderness: There is no abdominal tenderness. There is no guarding or rebound. Musculoskeletal: General: No swelling. Normal range of motion. Right lower leg: No edema. Left lower leg: No edema. Neurological: Mental Status: She is alert and oriented to person, place, and time. Skin: General: Skin is warm and dry. Psychiatric: Mood and Affect: Mood normal. Behavior: Behavior normal. Vitals and nursing note reviewed. Exam conducted with a materials handler present. Vitals: Estimated body mass index is 17.16 kg/m as calculated from the following: Height as of 04/25/23: 5' 5 . Weight as of this encounter: 103 lb 1.9 oz. BP: 98/62 Patient's last menstrual period was 05/24/2024 (approximate). ASSESSMENT & PLAN ICD-10-CM 1. Preop examination Z01.818 2. PCOS (polycystic ovarian syndrome) E28.2 3. Pelvic pain in female R10.2 Pre Op: Patient is doing well but has complaints of pelvic pain. I have discussed conservative management vs. surgical management with the patient in detail and patient desires surgical management at this time. Patient will undergo Da Annika assisted Diagnostic Laparoscopy, possible NUBIA, possible FOE, possible BSO on 07/06/24. Surgical consents were signed, mmc was reviewed, and patient is to proceed to [facility] OR. Follow Up: Patient is to follow up between 1-2 weeks post operative to assess proper healing and recovery from procedure. Documented by Marisol Loving LPN on behalf of: Oscar Bonilla DO documented in this encounter [facility] 06-08-2024 History of Presen t illness Narrative Physical Therapy Physical Therapy Treatment Visit Patient Name: Charly Foster Today's Date: 06/08/2024 Encounter Diagnoses Name Primary? Fibromyalgia Yes Visit number: 5 Supervised time: 38 minutes Spa Time: 10 minutes Total time: 68 minutes Subjective Pain: denies pain The weather is making me hurt today. Overall progress: No change since last session Treatment: x38' minutes supervised per aquatic flowsheet. Pt. required continuous verbal cues for proper technique and exercise progression. No adverse response towards treatment session. Assessment/Plan Guided patient through aquatic therapy this date to decrease general pain and tightness, improve general ROM, strength, endurance, flexibility and balance. Pt. reports understanding and compliance with HEP without any increase in pain during or after completion. Continue to progress as able per PT POC. Cosigned by Gabriela Chauhan, PT at 06/12/2024 12:55 PM EST documented in this encounter [facility] 06-04-2024 History of Presen t illness Narrative Physical Therapy Physical Therapy Treatment Visit Patient Name: Charly Foster Today's Date: 06/04/2024 Encounter Diagnoses Name Primary? Fibromyalgia Yes Visit number: 4 Supervised time: 58 minutes Spa Time: 10 minutes Total time: 68 minutes Subjective Pain: denies pain My knees are hurting me the most today. Overall progress: Worsening with reports of increased pain and tightness. Treatment: x58' minutes supervised per aquatic flowsheet. Pt. required continuous verbal cues for proper technique and exercise progression. No adverse response towards treatment session. Assessment/Plan Guided patient through aquatic therapy this date to decrease general pain and tightness, improve general ROM, strength, endurance, flexibility and balance. Pt. reports understanding and compliance with HEP without any increase in pain during or after completion. Continue to progress as able per PT POC. Cosigned by Gabriela Chauhan PT at 06/05/2024 10:35 AM EST documented in this encounter [facility] 05-29-2024 History of Presen t illness Narrative Reason for Appointment: Patient ID: Charly Foster is a 24 y.o. female who presents for Ovarian Cyst (Pt present today for a cyst bursting from PCOS) Patient presents today for a burst cyst on right ovary. MEDICATIONS Current Outpatient Medications Medication Instructions albuterol HFA 90 mcg/act inhaler INHALE 2 (TWO) PUFFS BY MOUTH FOUR TIMES DAILY NEEDED brompheniramine-pseudoephedrin e-DM 30-2-10 MG/5ML syrup TAKE 1 TEASPOONFUL BY MOUTH EVERY 4 HOURS NEEDED FOR COUGH busPIRone (BUSPAR) 10 mg, Oral, Every 8 hours busPIRone (BUSPAR) 10 mg, 2 times daily sertraline (Zoloft) 20 MG/ML concentrated solution Zoloft Ubrelvy 50 mg ALLERGIES Allergies Allergen Reactions Codeine Hives Other Reaction(s): Unknown confusion Ciprofloxacin Other Reaction(s): Unknown Metoclopramide Other Reaction(s): Unknown Rizatriptan Other Reaction(s): Unknown Venlafaxine Other Reaction(s): Unknown PROBLEMS Active Ambulatory Problems Diagnosis Date Noted Fibromyalgia 05/22/2024 Resolved Ambulatory Problems Diagnosis Date Noted No Resolved Ambulatory Problems Past Medical History: Diagnosis Date Anxiety MVP (mitral valve prolapse) HISTORY PAST MEDICAL HISTORY SOCIAL HISTORY Past Medical History: Diagnosis Date Anxiety MVP (mitral valve prolapse) Social History Tobacco Use Smoking status: Unknown Smokeless tobacco: Current Substance Use Topics Alcohol use: Never Comment: Caffeine: none Drug use: Never FAMILY HISTORY Family History Problem Relation Name Age of Onset Thyroid disease Mother Crohn's disease Father No Known Problems Brother Cancer Paternal Grandmother Diabetes Paternal Grandfather Heart disease Paternal Grandfather SURGICAL HISTORY Past Surgical History: Procedure Laterality Date ANKLE SURGERY Left 01/2021 ankle reconstructive surgery REVIEW OF SYSTEMS Review of Systems: Review of Systems Constitutional: Negative. HENT: Negative. Eyes: Negative. Respiratory: Negative. Cardiovascular: Negative. Gastrointestinal: Positive for abdominal pain. Musculoskeletal: Negative. Skin: Negative. Neurological: Negative. Psychiatric/Behavioral: Negative. All other systems reviewed and are negative. Hematological: Negative. Endocrine: Negative. OBJECTIVE Objective: Physical Exam Constitutional: Appearance: Normal appearance. She is normal weight. HENT: Head: Normocephalic. Cardiovascular: Rate and Rhythm: Normal rate. Pulses: Normal pulses. Pulmonary: Effort: Pulmonary effort is normal. Breath sounds: Normal breath sounds. Abdominal: General: There is no distension. Palpations: Abdomen is soft. Tenderness: There is abdominal tenderness. Comments: Diffuse abdominal tenderness Musculoskeletal: General: Normal range of motion. Neurological: General: No focal deficit present. Mental Status: She is alert and oriented to person, place, and time. Psychiatric: Mood and Affect: Mood normal. Behavior: Behavior normal. Thought Content: Thought content normal. Judgment: Judgment normal. Vitals and nursing note reviewed. Vitals: Estimated body mass index is 17.31 kg/m as calculated from the following: Height as of 04/25/23: 5' 5 . Weight as of this encounter: 104 lb. BP: 100/60 Patient's last menstrual period was 05/24/2024 (approximate). ASSESSMENT & PLAN ICD-10-CM 1. Cyst of ovary, unspecified laterality N83.209 Pt present today for pain on right side of ovary. Pt states the cyst had burst and has been in pain since this morning. Pt was seen at [facility] on 2024 for abdominal pain. Pt had a CT scan and US done at the hospital. Test results reviewed with the patient.Pt states she has a H/O PCOS and ovarian cysts. Patient.has history of D&C in her teens. We will repeat a D&C to evaluate continued chronic pain. Patient states she is seeing pain management at [facility] as well for her fibromyalgia. Today having some abdominal cramping. We will send in bentyl to pharmacy to help alleviate some discomfort. Pt will return for preop next month. Documented by Deirdre Olivares MA on behalf of: GAIL Bryan documented in this encounter [facility] 05-22-2024 History of Presen t illness Narrative Images from the original note were not included. Physical Therapy Physical Therapy Evaluation Visit Patient Name: Charly Foster Today's Date: 05/22/2024 Reason: fibromyalgia Visit number: 1 Subjective: Interim History: Pt is 24 yo female who presents with fibromyalgia. She states that she is constantly feeling pain all day every day and she feels like her joints are constantly popping in and out of place. She states that she has been trying to take walks every day and takes Ibprofin to help with the pain which helps alleviate her pain temporarily. She would like to get her pain under control so that she can start working. Pain: 03/03 Imaging: none Prior Level of Function: is not currently working d/t pain Precautions: fibromyalgia, hypermobile knees Objective: MMT: (painful throughout) Hip Flexion R- 4- L- 4- Abduction R- 4 L- 4 Adduction R- 4 L- 4 ER R- 4 L- 4 IR R- 4 L- 4 Knee Flexion R- 4 L- 4 Extension R- 4 L- 4 Ankle DF R- 4- L- 4 PF R- 4 L- 4 Functional: Gait- decreased heel strike/toe bilaterally, decreased stride length bilaterally 5xSTS- 13. 84 seconds Posture- genu valgus bilaterally, rounded shoulders, posterior pelvic tilt Treatment: Education: HEP education with demonstration, Educated on Eval Findings and POC Manual Therapy: Passive ROM, Joint mobilization, Soft Tissue Mobilization, Myofascial Release, Muscle Energy Technique, Neural Mobilization, Myofascial Cupping, Dry Needling, IASTM, and Scar mobilization Therapeutic Exercise: Strength, Endurance, Flexibility, ROM, HEP, Neural Mobilization, Power, and Core Stability Therapeutic Activity: Exercises to improve dynamic activities, functional tasks, functional mobility to return to prior activity level Gait Training: as needed Aquatic Therapy: exercises to improve general ROM, strength, endurance, flexibility and balance. Neuromuscular re-education: Balance Training, Muscle Facilitation, Dynamic Stability, Core Stabilization, and Blood Flow Restriction Training (BFRT) Modalities: Heat, Ice, Electrical Stimulation, Ultrasound, Cervical Mechanical Traction, Lumbar Mechanical Traction, Iontophoresis, and Fluidotherapy Today: IE; x9 minutes therex for general strengthening; edu on HEP, POC, impairments, pool services. Assessment: Goal 1: Patient will be able to complete 5xSTS in </= 8 seconds in 4 weeks. Goal 2: Patient will get a >/= 4+/5 in all LE MMT in 4 weeks. Goal 3: Patient will report decreased pain to a </=4/10 pain and increased strength in 4 weeks. Goal 4: Patient will demonstrate independence with HEP in 4 weeks. Pt will benefit from skilled PT to address the above impairments for 1-2x/week for 4 weeks. I hereby deem this POC medically necessary. Please sign below. Date: documented in this encounter [facility] 05-11-2024 Instructions Radha Laguna MD - 05/11/2024 [...] at a local facility, such as the [facility] or [facility] in [place], to help manage your pain and improve [...] can tolerate it. documented in this encounter [facility] 05-11-2024 History of Presen t illness Narrative Images from the original note were not included. [facility] Pain Management Department Consultation Date: May 11, 2024 - AM Referring physician: Hussein Browne [address] [address] Charly Foster is self referred. 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 She reports feeling dismissed by the resource development manager, who recommended lifestyle changes such as water aerobics and dietary improvements, but did not prescribe medication. She has not sought a second opinion from another resource development manager. In addition to diffuse pain, the patient reports significant fatigue and sleep disturbances. # Chronic pain syndrome (G89.4) # Fibromyalgia (M79.7) Generalized pain with tenderness to palpation in all areas. Negative rheumatologic and autoimmune workup by resource development manager in [place]. Symptoms include fatigue, sleep disturbances, brain fog, [...] specified Marital Status: Medical Decision Making The [facility] EMR was reviewed during the [...] 4 - Moderate documented in this encounter [facility] 05-11-2024 Note HNO ID: [id number] Author: RADHA LAGUNA MD Service: ? Author Type: Physician Type: Progress Notes Filed: 05/11/2024 09:22 Note Text: [facility] Pain Management Department Consultation Date: May 11, 2024 - AM Referring physician: Hussein Browne [address] [address] Charly Foster is self referred. 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 [facility] 04-30-2024 Telephone encounter Note New patient information sent via my chart [facility] 04-30-2024 Miscellaneous Notes New patient information sent via my chart documented in this encounter [facility] 04-27-2024 Note HNO ID: [id number] Author: ?, ?, ? Service: ? Author Type: ? Type: Progress Notes Filed: 04/27/2024 15:45 Note Text: POPULATION HEALTH NAVIGATION OUTREACH Action/[facility] Support: Called pt to schedule an appt in Pain Management. Lvm for pt to call [phone] for scheduling. Reason for Outreach Care Gap/HCC or Scheduling Wellness Visits Care Gaps due: N/A Patient Contacted: Unable or unnecessary to reach patient: Left message Navigation Signature: Ana Grullon April 27, 2024 3:45 PM [facility] 04-27-2024 History of Presen t illness Narrative POPULATION HEALTH NAVIGATION OUTREACH Action/[facility] Support: Called pt to schedule an appt in Pain Management. Lvm for pt to call [phone] for scheduling. Reason for Outreach Care Gap/HCC or Scheduling Wellness Visits Care Gaps due: N/A Patient Contacted: Unable or unnecessary to reach patient: Left message Navigation Signature: Ana Grullon April 27, 2024 3:45 PM documented in this encounter [facility] 04-27-2024 Note HNO ID: [id number] Author: HUSSEIN BROWNE MD Service: ? Author Type: Physician Type: Progress Notes Filed: 04/27/2024 22:58 Note Text: Interval history Patient came today to request referral to pain clinic Previously referred to pain clinic for chronic pain she was diagnosed with fibromyalgia ,but her resource development manager Doesn't treat fibromyalgia Tried physical therapy and supplements Pain is disabling her that she cannot work and is pain all over shoulders neck back legs Difficulty sleeping because of pain ,CBD effective I have communicated my name and active licensure. The patient's identity and physical location were verified at the time of this visit. 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 I spent a total of 60 minutes on the date of the service which included preparing to see the patient, [id number] patient care, counseling and educating the patient/family/caregiver, [...] Probability Score: 3 (Sleep study not recommended) [facility] 04-27-2024 History of Presen t illness Narrative Interval history Patient came today to request referral to pain clinic Previously referred to pain clinic for chronic pain she was diagnosed with fibromyalgia ,but her resource development manager Doesn't treat fibromyalgia Tried physical therapy and supplements Pain is disabling her that she cannot work and is pain all over shoulders neck back legs Difficulty sleeping because of pain ,CBD effective I have communicated my name and active licensure. The patient's identity and physical location were verified at the time of this visit. 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 I spent a total of 60 minutes on the date of the service which included preparing to see the patient, [id number] patient care, counseling and educating the patient/family/caregiver, [...] study not recommended) documented in this encounter [facility] 04-27-2024 Note Patient Outreach (FORTINO TNAV) CHARLY FOSTER ([id number]) 2000 F Date Time Provider Department 04/27/24 NO PCP NETNAV During your visit today, we recorded the following information about you: Ana Pryor 04/27/2024 3:45 PM Signed POPULATION HEALTH NAVIGATION OUTREACH Action/[facility] Support: Called pt to schedule an appt in Pain Management. Lvm for pt to call [phone] for scheduling. Reason for Outreach Care Gap/HCC [...] Encounter Status:Closed by ANA PRYOR on 04/27/24 [facility] 03-01-2024 Telephone encounter Note Left voice mail to call office regarding ins. Information for Ubrelvy 50 mg. Cover my meds states she has no coverage under insurance. Need updated insurance information to submit prior auth [facility] 03-01-2024 Miscellaneous Notes Left voice mail to call office regarding ins. Information for Ubrelvy 50 mg. Cover my meds states she has no coverage under insurance. Need updated insurance information to submit prior auth documented in this encounter [facility] 02-15-2024 Evaluation note Authored February 15, 2024 1:55pm Patient remains positive for intermittent dysphagia/esophageal spasm, patient dyspepsia also improved but intermittently present. Patient has noted some improvement with MiraLAX dosing however patient does require stronger medication patient given prescription for Trulance once daily. Patient positive for occasional abdominal pain [facility] Work Phone: 1(523) 952-873606-18-2024 Hospital Discharge instructionsAmbulatory Orders* Referral to Rheumatology Time Frame: 01/10/24, Location: None Selected [facility] Work Phone: 1(806) 669-375305-20-2024 Telephone encounter Note* Telephone Encounter - Andria Cardona MA - 12/12/2023 1:17 PM EDT Left vm to call office with current RX insurance information for Ubrelvy 50mg . Prior auth is needed for medication [facility]05-20-2024 Miscellaneous Notes* Telephone Encounter - Andria Cardona MA - 12/12/2023 1:17 PM EDT Left vm to call office with current RX insurance information for Ubrelvy 50mg . Prior auth is needed for medication [facility] Tele[facility] encounter Note * Telephone Encounter - Lawrence Kinsey RN - 12/12/2023 11:06 AM EDT Kandice Garcia, [employer] [place], CHRISTIAN Galarza left message on nurse line for provider today with medication question regarding recent prescription for Ubrelvy 50 mg. Tablets. You sent over a prescription for 16 tablets but the medication comes in a box of 10 and we do not split boxes. I was wondering if you could change the quantity to a value of 10. Spoke to Pharmacist at [facility] [employer] who was advised that 16 is the maximum monthly asbestos siding mechanic recommended dose. They have started prior authorization and will see what insurance companies authorizes. She stated it is a preference of their pharmacy to not split boxes but they will wait to see what insurance companies recommends. Will call back with any questions or concerns. [facility]05-20-2024 Miscellaneous Notes* Telephone Encounter - Lawrence Kinsey RN - 12/12/2023 11:06 AM EDT Kandice Garcia, [employer] [place], CHRISTIAN Galarza left message on nurse line for provider today with medication question regarding recent prescription for Ubrelvy 50 mg. Tablets. You sent over a prescription for 16 tablets but the medication comes in a box of 10 and we do not split boxes. I was wondering if you could change the quantity to a value of 10. Spoke to Pharmacist at [facility] [employer] who was advised that 16 is the maximum monthly asbestos siding mechanic recommended dose. They have started prior authorization and will see what insurance companies authorizes. She stated it is a preference of their pharmacy to not split boxes but they will wait to see what insurance companies recommends. Will call back with any questions or concerns. [facility] NoteHNO ID: [id number] Author: HUSSEIN BROWNE MD Service: ? Author Type: Physician Type: Progress Notes Filed: 01/04/2024 23:19 Note Text: VIRTUAL VISIT PROGRESS NOTE This is a virtual visit using [employer] Video Visit. It required patient-provider interaction for the medical decision making as documented below. I have communicated my name and active licensure. The patient's identity and physical location were verified at the time of this visit. 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 I spent a total of 60 minutes on the date of the service which included preparing to see the patient, [id number] patient care, counseling and educating the patient/family/caregiver, [...] Apnea Probability Score: 3 (Sleep study not recommended)[facility]05-17-2024 History of Present illness Narrative* Hussein Browne MD - 12/09/2023 2:52 PM EDT VIRTUAL VISIT PROGRESS NOTE This is a virtual visit using MyChart Zoom Video Visit. It required patient- provider interaction for the medical decision making as documented below. I have communicated my name and active licensure. The patient's identity and physical location wereverified at the time of this visit. 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 I spent a total of 60 minutes on the date of the service which included preparing to see the patient, [id number] patient care, counseling and educating the patient/family/caregiver, [...] (Sleep study not recommended) [facility] History of Present illness Narrative* Evelyn Melo [...] PATIENT PRESENTS WITH AN IMPLANTABLE OR ATTACHED ELECTROENCEPHALOGRAPHIC TECHNICIAN: No RADIOLOGY DEPARTMENT: MR; Exam(s) Completed: Head: Pituitary PERIPHERAL IV DATA: Site assessment: Clean,Dry and Intact, Site disposition Discontinued SIGNED BY: RT Anu(Nahun) November 23, 2023 12:56 PM [facility]24 NoteHNO ID: [id number] Author: EVELYN MELO RN Service: Nursing Author [...] Foster DATE: November 23, 2023 TIME: 12:41 [facility]05-01-2024 NoteHNO ID: [id number] Author: MOHAN THOMAS RT(R) Service: Radiology Author [...] PATIENT PRESENTS WITH AN IMPLANTABLE OR ATTACHED ELECTROENCEPHALOGRAPHIC TECHNICIAN: No RADIOLOGY DEPARTMENT: MR; Exam(s) Completed: Head: Pituitary PERIPHERAL IV DATA: Site assessment: Clean,Dry and Intact, Site disposition Discontinued SIGNED BY: RT Anu(R) November 23, 2023 12:56 [facility]04-29-2024 Telephone encounter Note* Telephone Encounter - Key Moore - 11/21/2023 6:13 PM EDT Updated clinical notes from [facility] Date collected 10/19/23 Date scanned in chart 11/21/23 Key Meneses Senior Consulting Manager II [facility] F-20 [facility]04-29-2024 Miscellaneous Notes* Telephone Encounter - Zaira LindKey - 11/21/2023 6:13 PM EDT Updated clinical notes from [facility] Date collected 10/19/23 Date scanned in chart 11/21/23 Key Meneses Senior Consulting Manager II [facility] F-20 [facility] Instructions* Patient Instructions* Monserrat Nava MD - 11/18/2023 10:17 AM EDT Please obtain a dedicated Pituitary MRI. Consult to IM and internal medicine to address other symptoms. Monserrat Nava MD., F.A.C.E. [facility] Nurse Note* Tatiana Farris MA - 11/18/2023 9:00 AM EDT Additional intake questions: Has the patient had fever, nausea, vomiting, diarrhea, constipation, fatigue for > 1 week? Yes, nausea, fatigue, and Provider Notified Does the patient have a decreased appetite? Yes Does patient want to see a Manager Nuclear? No (yes to any of above refer patient to schedulers for dietitian appointment) ) Does patient have any new or increased numbness or tingling of extremities? Yes, numbness in both hands. Is patient interested in fertility information? No Does patient need any prescription refills? No Does patient have an advanced directive in place? No, Patient referred to [facility]04-26-2024 History of Present illness Narrative* Monserrat Nava [...] which included preparing to see the patient, [id number] patient care, completing clinical documentation, obtaining and/or [...] of SERVICE: 6:07 AM [facility]24 NoteHNO ID: [id number] Author: MONSERRAT NAVA MD Service: ? Author [...] J - 10/27/2023 ASSESSMENT/P (more content not included)...[facility]04-26-2024 Nurse Note* Tatiana Farris MA - 11/18/2023 9:00 AM EDT Additional intake questions: Has the patient had fever, nausea, vomiting, diarrhea, constipation, fatigue for > 1 week? Yes, nausea, fatigue, and Provider Notified Does the patient have a decreased appetite? Yes Does patient want to see a Manager Nuclear? No (yes to any of above refer patient to schedulers for dietitian appointment) ) Does patient have any new or increased numbness or tingling of extremities? Yes, numbness in both hands. Is patient interested in fertility information? No Does patient need any prescription refills? No Does patient have an advanced directive in place? No, [facility] encounter Note * Telephone Encounter - Gil Salinas RN - 11/16/2023 9:22 AM EDT Call placed to Charly Foster. Discussed appointment on Tuesday with Dr. Nava. She tells me she was referred due to abnormal MRI findings. MRI is available for review in [facility]. She has not had pituitary lab work completed. Explained lab work will help have a more productive appointment. I will place orders and she can have them completed at any [facility] lab prior to 9 am. She is going to try to have them completed tomorrow morning. Instructed to refrain from sexual activity or nipple stimulation 12 hours prior to obtaining labs. Understands not to take any steroids the morning of lab work. All questions answered at this time. Gil Salinas RN Delivery Driver/Customer Service November 16, 2023 [facility]04-24-2024 Miscellaneous Notes* Telephone Encounter - Gil Salinas RN - 11/16/2023 9:22 AM EDT Call placed to Charly Foster. Discussed appointment on Tuesday with Dr. Nava. She tells me she was referred due to abnormal MRI findings. MRI is available for review in [facility]. She has not had pituitary lab work completed. Explained lab work will help have a more productive appointment. I will place orders and she can have them completed at any [facility] lab prior to 9 am. She is going to try to have them completed tomorrow morning. Instructed to refrain from sexual activity or nipple stimulation 12 hours prior to obtaining labs. Understands not to take any steroids the morning of lab work. All questions answered at this time. Gil Eric, RN Delivery Driver/Customer Service November 16, 2023 [facility] Evaluation note* Encounter Date Diagnosis Assessment Notes [...] Suspected COVID-19 virus infection (ICD-10 - Z20.822) [employer] Other 12-01-2023 Evaluation note* Encounter Date Diagnosis [...] aware. Advised follow above treatment plan recommendations [employer] Other 10-19-2023 Evaluation note* Encounter Date Diagnosis Assessment Notes Treatment Notes Treatment Clinical Notes Apr, Acute non-recurrent maxillary sinusitis (ICD-10 - J01.00) Take medication as prescribed. Humidification, saline nose spray, Neti pot suggested for sinus relief. OTC acetaminophen/ibup rofen for pain. May continue OTC decongestants/anti histamines. [employer] Other 06-24-2023 Evaluation note* Encounter Date Diagnosis [...] no improvement in 2 to 3 days. [employer] Other 02-23-2023 Evaluation note* Encounter Date Diagnosis [...] even if you start to feel better. [employer] Other 02-17-2023 Evaluation note* Encounter Date Diagnosis [...] of diseases classified elsewhere (ICD-10 - B96.89) [employer] Other 11-21-2022 Evaluation note* Encounter Date Diagnosis [...] of diseases classified elsewhere (ICD-10 - B96.89) [employer] Other 06-14-2022 NotePROCEDURE: XR ANKLE LT MIN [...] Electronically authenticated by: GREGORY KLEIN Date: 2022-01-05 16:37[facility]06-14-2022 NotePROCEDURE: XR ANKLE LT MIN [...] Electronically authenticated by: GREGORY KLEIN Date: 2022-01-05 16:37[facility]11-20-2021 Evaluation note* Encounter Date Diagnosis [...] Patient care instructions given in writting by [facility] document [employer] Other 10-03-2021 Evaluation note* Encounter Date Diagnosis [...] Patient care instructions given in writting by [facility] document. [facility] [employer] [facility] [employer] Other Evalusqhqq noteNo assessment information available [facility] Work Phone: Evaluation noteNo InformationNortSelect Specialty [facility] [employer] Other Evaluation note* Diagnosis Onset Date Resolution Status Fatigue acute Mitral valve disorder acute Nausea & vomiting acute [facility] Work Phone: Evaluation note* Diagnosis Onset Date Resolution Status Chronic constipation acute Fatigue acute Migraine acute Mitral valve disorder acute Nausea & vomiting acute Staring episodes acute Constipation acute Nausea acute Dyspepsia noneactive Celiac disease noneactive [facility] Work Phone: Evaluation note* Diagnosis 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 [facility]* Diagnosis Abnormal brain MRI Nonspecific (abnormal) findings on radiological and other examination of skull and head Pituitary adenoma (HCC) Benign neoplasm of pituitary gland and craniopharyngeal duct (pouch) Elevated prolactin level Unspecified endocrine disorder Pituitary disorder (HCC) Unspecified disorder of the pituitary gland and its hypothalamic control [facility]* Diagnosis Abnormal brain MRI- Primary Nonspecific [...] its hypothalamic control documented in this encounter [facility] note* Diagnosis Generalized weakness- Primary Other malaise and fatigue Generalized pain Gait instability Abnormality of gait Generalized abdominal pain Abdominal pain, generalized Intractable migraine with aura without status migrainosus Migraine with aura, with intractable migraine, so stated, without mention of status migrainosus [facility] Diagnosis Onset Date Resolution Status Chronic constipation acute Fatigue acute Migraine acute Mitral valve disorder acute Nausea & vomiting acute Staring episodes acute Dyspepsia noneactive Celiac disease noneactive Chronic constipation acute Migraine acute Mitral valve disorder acute Staring episodes acute Mitral valve disorder acute Palpitations acute [facility] Work Phone: Evaluation note* Diagnosis Onset Date Resolution Status Dyspepsia noneactive Celiac disease noneactive Chronic constipation acute Migraine acute Mitral valve disorder acute Staring episodes acute Mitral valve disorder acute Palpitations acute [facility] Work Phone: Evaluation note* Diagnosis Onset Date Resolution Status Chronic constipation acute Migraine acute Mitral valve disorder acute Staring episodes acute Mitral valve disorder acute Palpitations acute [facility] Work Phone: Evaluation note* Diagnosis Chronic pain syndrome- Primary [facility]* Diagnosis Fibromyalgia- Primary Mylagia and myositis, unspecified Chronic pain syndrome [facility] Diagnosis Fibromyalgia- Primary Unspecified myalgia and myositis [facility] Diagnosis Fibromyalgia- Primary Unspecified myalgia and myositis [facility]* Diagnosis Cyst of ovary, right History of PCOS History of ovarian cyst Personal history of other genital system and obstetric disorders Generalized abdominal pain Abdominal pain, generalized documented in this encounter [facility]* Diagnosis Fibromyalgia- Primary Unspecified myalgia and myositis [facility]* Diagnosis Fibromyalgia- Primary Unspecified myalgia and myositis [facility]* Diagnosis Fibromyalgia- Primary Unspecified myalgia and myositis [facility]* Diagnosis Preop examination Unspecified pre-operative examination PCOS (polycystic ovarian syndrome) Polycystic ovaries Pelvic pain in female Unspecified symptom associated with female genital organs [facility] Diagnosis Fibromyalgia- Primary Unspecified myalgia and myositis [facility]* Diagnosis Patellofemoral disorder of both knees- Primary Pain in both knees, unspecified chronicity [facility]* Diagnosis Fibromyalgia- Primary Unspecified myalgia and myositis [facility] Narrative - Reported* Type Description Date Medical History concaved chest Medical History acne Medical History Mitral valve prolapse Medical History anxiety Medical History chronic depression Medical History migraine headache Medical History auto immune disorder unsure of n [place] Surgical History laparoscopy Hospitalization History see above [employer] Other History general Narrative - Reported* Type Description Date Medical History concaved chest Medical History acne Medical History Mitral valve prolapse Medical History anxiety Medical History chronic depression Medical History migraine headache Medical History urticaria Surgical History laparoscopy Hospitalization History see above [employer] Other [facility] general Narrative - Reported* Type Description Date Medical History concaved chest Medical History acne Medical History Mitral valve prolapse Medical History anxiety Medical History chronic depression Medical History migraine headache Medical History urticaria Surgical History laparoscopy Surgical History repair ankle tendon Hospitalization History see above [employer] Other [facility] general Narrative - Reported* Type Description Date Medical History concaved chest Medical History acne Medical History Mitral valve prolapse Medical History anxiety Medical History chronic depression Medical History migraine headache Medical History urticaria Medical History PCOS Surgical History laparoscopy Surgical History repair ankle tendon Hospitalization History see above [employer] Other Reason for visit Narrative* Rehabilitation - Outpatient (Routine) - Authorized Specialty Diagnoses / Procedures Referred By Contac t Referred To Contact Physical Therapy Diagnoses Fibromyalgia Procedures ME PHYS THERAPY EVALUATION Radha Laguna MD [address] [place] [address] Phone: tel: fax: Gabriela Chauhan PT Referral ID Status Reason Start Date Expiration Date V isits Requested Visits Authorized [id number] Authorized 05/14/2024 11/10/2024 20 20 [facility] HealthcareReason for visit Narrative* Rehabilitation - Outpatient (Routine) - Authorized Specialty Diagnoses / Procedures Referred By Contac t Referred To Contact Physical Therapy Diagnoses Fibromyalgia Procedures ME PHYS THERAPY EVALUATION Radha Laguna MD [address] [place] [address] Phone: tel: fax: Gabriela Chauhan, PT Referral ID Status Reason Start Date Expiration Date V isits Requested Visits Authorized [id number] Authorized 05/14/2024 11/10/2024 20 5 [facility] N[facility]* Rehabilitation - Outpatient (Routine) - Closed Specialty Diagnoses / Procedures Referred By Contac t Referred To Contact Physical Therapy Diagnoses Fibromyalgia Procedures ME PHYS THERAPY EVALUATION Radha Laguna MD [address] [place] [address] Phone: tel: fax: Gabriela Chauhan, PT Referral ID Status Reason Start Date Expiration Date Visits Re quested Visits Authorized [id number] Closed 05/14/2024 11/10/2024 20 5 [facility] for [facility] Narrative* Rehabilitation - Outpatient (Routine) - Authorized Specialty Diagnoses / Procedures Referred By Contac t Referred To Contact Physical Therapy Diagnoses Fibromyalgia Procedures ME PHYSICAL THERAPY EVALUATION MOD COMPLEX 30 MINS Radha Laguna MD [address] [place] [address] Phone: tel: fax: Gabriela Chauhan, PT Referral ID Status Reason Start Date Expiration Date V isits Requested Visits Authorized [id number] Authorized 06/25/2024 08/23/2024 5 5 [facility] Summary Purpose Family History No Family History [...] CONSTIPATION, NAUSEA & VOMITING r27.0 r11.0 [facility] f/u, pain Reason for Visit Chronic constipation Fatigue Migraine Mitral valve disorder Nausea & vomiting Staring episodes Constipation Nausea Dyspepsia Celiac disease Chief Complaint Check up REF BY DR. BROTHERS CONSTIPATION, NAUSEA & VOMITING r27.0 r11.0 [facility] f/u, pain Rheumatic Mitral Valve Disease Reason for Visit Chronic constipation Fatigue Migraine Mitral valve disorder Nausea & vomiting Staring episodes Dyspepsia Celiac disease Chronic constipation Migraine Mitral valve disorder Staring episodes Mitral valve disorder Palpitations Chief Complaint REF BY DR. BROTHERS CON STIPATION, NAUSEA & VOMITING r27.0 r11.0 [facility] f/u, pain Rheumatic Mitral Valve Disease Reason for Visit Dyspepsia Celiac disease Chronic constipation Migraine Mitral valve disorder Staring episodes Mitral valve disorder Palpitations Chief Complaint [facility] f/u , pain Rheumatic Mitral Valve [...] Referred By Contac t Referred To Contact Diagnoses Chronic pain syndrome Fibromyalgia Procedures CONSULT TO MEDICAL GENETICS - GENERAL OFFICE/OUTPATIENT [facility] 60 MINUTES MEDICAL GENETICS COUNSELING EACH 30 MINUTES Radha Laguna MD [address] [place] [address] [address] Referral ID Status Reason Start Date Expiration Date Visits Requested Visits Authorized [id number] Pending Review PCP Requested Referral Auto-Generate d Referral 05/11/2025 1 1 Specialty Diagnoses / Procedures Referred By Contac t Referred To Contact [facility] [place] Diagnoses Chronic pain syndrome Fibromyalgia Procedures CONSULT TO [facility] (CHRONIC PAIN) OFFICE/OUTPATIENT [facility] 60 MINUTES Radha Laguna MD [address] [place] [address] Referral ID Status Reason Start Date Expiration Date Visits Requested Visits Authorized [id number] Pending Review PCP Requested Referral 05/11/2025 1 1 Specialty Diagnoses / Procedures Referred By Contac t Referred To Contact [facility] Diagnoses Chronic pain syndrome Fibromyalgia Procedures CONSULT TO PHYSICAL THERAPY PHYSICAL THERAPY EVALUATION HIGH COMPLEX 45 [place] [address] [place] [address] [facility] [address] [address] Referral ID Status Reason Start Date Expiration Date Visits Requested Visits Authorized [id number] Pending Review Auto-Generat ed Referral 05/11/2025 1 1 Specialty Diagnoses / Procedures Referred By Contac t Referred To Contact [facility] Diagnoses Chronic pain syndrome Procedures CONSULT TO PAIN MGT OFFICE/OUTPATIENT [facility] 60 MINUTES Hussein Borwne MD [address] [place] [address] [facility] [place] [address] [place] [address] Referral ID Status Reason Start Date Expiration Date V isits Requested Visits Authorized [id number] Closed PCP Requested Referral 04/27/2024 04/27/2025 1 1 Specialty Diagnoses / Procedures Referred By Contac t Referred To Contact Hussein Browne MD [address] [place] [address] Referral ID Status Reason Start Date Expiration Date Visits Re quested Visits Authorized [id number] Closed 1 1 Specialty Diagnoses / Procedures Referred By Contac t Referred To Contact Neurology Diagnoses Generalized weakness Generalized pain Gait instability Generalized abdominal pain Procedures CONSULT TO NEUROLOGY OFFICE/OUTPATIENT [facility] 60 MINUTES Monserrat Nava MD [facility] [place] [address] Referral ID Status Reason Start Date Expiration Date V isits Requested Visits Authorized [id number] Closed PCP Requested Referral 11/18/2023 11/17/2024 1 1 Specialty Diagnoses / Procedures Referred By Contac t Referred To Contact [facility] Diagnoses Generalized weakness Generalized pain Gait instability Generalized abdominal pain Procedures ESTABLISH WITH PRIMARY CARE NEW PATIENT OFFICE/OUTPATIENT [facility] 60 MINUTES Monserrat Nava MD [address] [place] [address] [place] [address] Referral ID Status Reason Start Date Expiration Date Visits Requested Visits Authorized [id number] Authorized PCP Requested Referral 11/18/2023 11/17/2024 1 1 Specialty Diagnoses / Procedures Referred By Contac t Referred To Contact [facility] Diagnoses Abnormal brain MRI Pituitary adenoma (HCC) Elevated prolactin level Pituitary disorder (HCC) Procedures MRI PITUITARY WO/W IVCON MRI BRAIN BRAIN STEM W/O W/CONTRAST MATERIAL Monserrat Nava MD [address] [place] [address] [facility] [place] [address] Referral ID Status Reason Start Date Expiration Date V isits Requested Visits Authorized [id number] Closed Auto-Generate d Referral 11/18/2023 12/17/2024 1 1 Specialty Diagnoses / Procedures Referred By Contac t Referred To Contact [facility] Diagnoses Abnormal brain MRI Pituitary adenoma (HCC) Elevated prolactin level Pituitary disorder (HCC) Procedures MRI PITUITARY WO/W IVCON MRI BRAIN BRAIN STEM W/O W/CONTRAST MATERIAL Monserrat Nava MD [address] [place] [address] [place] [id number] Referral ID Status Reason Start Date Expiration Date V isits Requested Visits Authorized [id number] Closed Auto-Generate d Referral 11/18/2023 12/17/2024 1 1 Additional Source Comments Source Comments (unrecognize d section and content) In the event this informatio n is protected by the Federal Confidentiality of Alcohol and Drug Abuse Patient Records regulations: The Federal rules restrict any use of the information to criminally investigate or prosecute any alcohol or drug abuse patient.[facility] the event this information is protected by the Federal Confidentiality of Alcohol and Drug Abuse Patient Records regulations: The Federal rules restrict any use of the information to criminally investigate or prosecute any alcohol or drug abuse patient.[facility] the event this information is protected by the Federal Confidentiality of Alcohol and Drug Abuse Patient Records regulations: The Federal rules restrict any use of the information to criminally investigate or prosecute any alcohol or drug abuse patient.[facility] the event this information is protected by the Federal Confidentiality of Alcohol and Drug Abuse Patient Records regulations: The Federal rules restrict any use of the information to criminally investigate or prosecute any alcohol or drug abuse patient.[facility] Hospital[facility] the event this information is protected by the Federal Confidentiality of Alcohol and Drug Abuse Patient Records regulations: The Federal rules restrict any use of the information to criminally investigate or prosecute any alcohol or drug abuse patient.[facility] Hospital[facility] the event this information is protected by the Federal Confidentiality of Alcohol and Drug Abuse Patient Records regulations: The Federal rules restrict any use of the information to criminally investigate or prosecute any alcohol or drug abuse patient.[facility] the event this information is protected by the Federal Confidentiality of Alcohol and Drug Abuse Patient Records regulations: The Federal rules restrict any use of the information to criminally investigate or prosecute any alcohol or drug abuse patient.[facility] the event this information is protected by the Federal Confidentiality of Alcohol and Drug Abuse Patient Records regulations: The Federal rules restrict any use of the information to criminally investigate or prosecute any alcohol or drug abuse patient.[facility] Hospital[facility] the event this information is protected by the Federal Confidentiality of Alcohol and Drug Abuse Patient Records regulations: The Federal rules restrict any use of the information to criminally investigate or prosecute any alcohol or drug abuse patient.[facility] Hospital[facility] the event this information is protected by the Federal Confidentiality of Alcohol and Drug Abuse Patient Records regulations: The Federal rules restrict any use of the information to criminally investigate or prosecute any alcohol or drug abuse patient.[facility] Hospital[facility] the event this information is protected by the Federal Confidentiality of Alcohol and Drug Abuse Patient Records regulations: The Federal rules restrict any use of the information to criminally investigate or prosecute any alcohol or drug abuse patient.[facility] Hospital[facility] the event this information is protected by the Federal Confidentiality of Alcohol and Drug Abuse Patient Records regulations: The Federal rules restrict any use of the information to criminally investigate or prosecute any alcohol or drug abuse patient.[facility] Hospital[facility] the event this information is protected by the Federal Confidentiality of Alcohol and Drug Abuse Patient Records regulations: The Federal rules restrict any use of the information to criminally investigate or prosecute any alcohol or drug abuse patient.[facility] INFORMATION SOURCE (unrecogn ized section and content) DATE CREATED AUTHOR 08/21/2021 [facility] DATE CREATED AUTHOR AUTHOR'S ORGANIZ ATION 12/06/2022 [facility] DATE CREATED AUTHOR AUTHOR'S ORGANIZ ATION 05/13/2024 [facility] DATE CREATED AUTHOR AUTHOR'S ORGANIZ ATION 06/05/2024 [facility] DATE CREATED AUTHOR AUTHOR'S ORGANIZ ATION 07/05/2024 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 Received Outside Medical Records Reason Comments Radiology MRI Specialty Diagnoses / Procedures Referred By Contac t Referred To Contact MR IMAGING Diagnoses Abnormal brain MRI Pituitary adenoma (HCC) Elevated prolactin level Pituitary disorder (HCC) Procedures MRI PITUITARY WO/W IVCON MRI BRAIN BRAIN STEM W/O W/CONTRAST MATERIAL Monserrat Nava MD [address] [place] [address] [place] [id number] Referral ID Status Reason Start Date Expiration Date V isits Requested Visits Authorized [id number] Closed Auto-Generate d Referral 11/18/2023 12/17/2024 1 [...] MDM 60 MINUTES Monserrat Nava MD [address] [place] [address] Referral ID Status Reason Start Date Expiration Date V isits Requested Visits Authorized [id number] Closed PCP Requested Referral 11/18/2023 11/17/2024 1 1 Reason Comments Insurance Authorization Reason Comments Established Patient Reason Comments Appointment New patient call Reason Comments Consult Specialty Diagnoses / Procedures Referred By Contac t Referred To Contact [facility] Diagnoses Chronic pain syndrome Procedures CONSULT TO PAIN MGT OFFICE/OUTPATIENT NEW [facility] 60 MINUTES Hussein Browne MD [address] [place] [address] [facility] [place] [address] [place] [address] Referral ID Status Reason Start Date Expiration Date V isits Requested Visits Authorized [id number] Closed PCP Requested Referral 04/27/2024 04/27/2025 1 1 Reason Comments Ovarian Cyst Pt present today for a cyst bursting from PCOS Reason Comments Pre-op Visit Specialty Diagnoses / Procedures Referred By Contac t Referred To Contact Physical Therapy Diagnoses Pain in unspecified knee Patellofemoral disorders, unspecified knee Procedures ME MANUAL THERAPY TQS 1/> REGIONS EACH 15 MINUTES ME THER PX 1/> AREAS EACH 15 MIN NEUROMUSC REEDUCA ME THERAPEUTIC PX 1/> AREAS EACH 15 MIN EXERCISES PHYS/OCC THERAPY SS TREATMENT Pia Laureano MD [address] [place] [address] Mohan Huffman, PT [address] [address] Referral ID Status Reason Start Date Expiration Date V isits Requested Visits Authorized [id number] Pending Review 03/30/2024 05/22/2024 20 20 Care Teams (unrecognized sec tion and content) [...] Active Member Role Status Carlitos Hoskins MD Pharmacy Technology Instructor Active Monster Brothers MD Primary Care Provider Active Team Status: Active Member Role Status Carlitos Brothers MD Primary Care Provide r, Attending Provider Active Start: January 10, 2024 Team Status: Inactive Member Role Status Carlitos Brothers MD Primary Care Provider Active Start: February 15, 2024 End: February 15, 2024 eRji Bailey APRN Attending Provider Active Start: February 15, 2024 End: February 15, 2024 Hand Tube Winder Relationship Specialty Start Date End Date Pia Laureano [address] [facility] [place] [address] Referring Rheumatology 02/16/24 Team Status: Inactive Member [...] April 18, 2024 End: April 18, 2024 Hand Tube Winder Relationship Specialty Start Date End Date Pia Laureano [address] [facility] [place] [address] Referring Rheumatology 02/16/24 Hand Tube Winder Relationship Specialty Start Date End Date Pia Laureano [address] [place] [id number] Referring Rheumatology 02/16/24 Hand Tube Winder Relationship Specialty Start Date End Date Pia Laureano [address] [place] [phone] Referring Rheumatology 02/16/24 Hand Tube Winder Relationship Specialty Start Date End Date Pia Laureano [address] [place] [address] Referring Rheumatology 02/16/24 Hand Tube Winder Relationship Specialty Start Date End Date Monster Brothers MD [address] [place] [place] [phone] PCP - General 02/15/23 Hand Tube Winder Relationship Specialty Start Date End Date Monster Brothers MD [address] [place] [place] [id number] PCP - General 02/15/23 Hand Tube Winder Relationship Specialty Start Date End Date Monster Brothers MD [address] [place] [facility] [place] [phone] PCP - General 02/15/23 Hand Tube Winder Relationship Specialty Start Date End Date Monster Brothers MD [address] [place] [phone] PCP - General 02/15/23 Hand Tube Winder Relationship Specialty Start Date End Date Monster Brothers MD [address] [place] [address] PCP - General 02/15/23 Hand Tube Winder Relationship Specialty Start Date End Date Monster Brothers MD [address] [place] [address] PCP - General 02/15/23 Hand Tube Winder Relationship Specialty Start Date End Date Monster Brothers MD [address] [place] [place] [address] PCP - General 02/15/23 Hand Tube Winder Relationship Specialty Start Date End Date Monster Brothers MD [address] [place] [place] [address] PCP - General 02/15/23 Hand Tube Winder Relationship Specialty Start Date End Date Monster Brothers MD [address] [place] [facility] [address] PCP - General 02/15/23 Hand Tube Winder Relationship Specialty Start Date End Date Monster Brothers MD [address] [place] [facility] [address] PCP - General 02/15/23 Hand Tube Winder Relationship Specialty Start Date End Date Monster Brothers MD [address] [place] [facility] [address] PCP - General 02/15/23 Hand Tube Winder Relationship Specialty Start Date End Date Monster Brothers MD [address] [place] [facility] [address] PCP - General 02/15/23 Hand Tube Winder Relationship Specialty Start Date End Date Monster Brothers MD [address] [place] [facility] [phone] PCP - General 02/15/23 Hand Tube Winder Relationship Specialty Start Date End Date Monster Brothers MD [address] [place] [facility] [phone] PCP - General 02/15/23 Hand Tube Winder Relationship Specialty Start Date End Date Monster Brothers MD [address] [place] [facility] [phone] PCP - General 02/15/23 Hand Tube Winder Relationship Specialty Start Date End Date Monster Brothers MD [address] [place] [facility] [phone] PCP - General 02/15/23 Hand Tube Winder Relationship Specialty Start Date End Date Monster Brothers MD [address] [place] [facility] [phone] PCP - General 02/15/23 Goals (unrecognized section and content) Goals may [...] BE BASED ON THE PRIMARY CLINICAL RECORDS. [facility] [employer] [facility]. provides no warranty or guarantee of the accuracy or completeness of information in this document.
[2024-07-06 08:25] LABS: Basophils Absolute Auto 0.1 10^3/uL (0.0-0.1); Basophils Percent Auto 0.8 % (0.2-2.0); Eosinophils Absolute Auto 0.2 10^3/uL (0.0-0.7); Eosinophils Percent Auto 2.2 % (0.9-7.0); Hematocrit 43.4 % (36.0-48.0); Hemoglobin 14.7 g/dL (12.0-16.0); Immature Granulocytes Abs Auto 0.01 10^3/uL (0.00-0.03); Immature Granulocytes Pct Auto 0.1 % (0.0-0.5); Lymphocytes Absolute Auto 3.2 10^3/uL (1.2-3.8); Lymphocytes Percent Auto 43.6 % (20.5-60.0); Mean Corpuscular HGB Conc 33.9 g/dL (29.9-35.2); Mean Corpuscular Hemoglobin 31.1 pg (26.7-34.0); Mean Corpuscular Volume 91.8 fL (81.0-99.0); Mean Platelet Volume 9.8 fL (9.5-13.5); Monocytes Absolute Auto 0.6 10^3/uL (0.3-0.8); Monocytes Percent Auto 8.2 % (1.7-12.0); Neutrophils Absolute Auto 3.3 10^3/uL (1.4-6.5); Neutrophils Percent Auto 45.1 % (43.0-75.0); Platelet Count 326 10^3/uL (150-450); Red Blood Count 4.73 10^6/uL (4.20-5.40); Red Cell Distribution Width 12.4 % (11.0-15.0); White Blood Count 7.3 10^3/uL (4.0-11.0)
[2024-07-06 08:38] LABS: HCG Quantitative <1 mIU/mL
--- NOTE | 2024-07-06 10:26 | P.ON_ITS ---
Brief Operative Note Date of procedure: 07/06/24 Pre-op diagnosis general: pelvic pain Post-op diagnosis: same as pre-op Procedure: NAME OF PROCEDURE: [diagnostic laparoscopy ] PROCEDURE: The patient was taken back to the Operating Room where she was placed in dorsal lithotomy position after given general anesthesia. The patient was prepped and draped in normal sterile fashion. A sponge stick was placed into the patient's vagina. Attention was turned to the patient's abdomen, where a small umbilical incision was made. The fascia was tented using Xochitl clamps and the fascia was entered sharply. Confirmation of intraabdominal placement of the 10 mm port was confirmed under direct visualization using a laparoscope. The patient's abdomen was then insufflated using CO2 gas with approximately 4 liters. A second port was placed left laterally, this was done under direct visualization with a 5 mm port. Survey of the patient's abdomen demonstrated normal liver and gallbladder. Survey of the patient's pelvic anatomy demonstrated normal appearing rt and lt ovary and tubes as well as normal appearing uterus. posterior culdesac endometrial implants could be noted, no evidence of any pelvic disease was seen, normal appearing pelvic cavity. All instruments were removed from the patient's abdomen. The patient's abdomen was deinsufflated of CO2 gas. The patient tolerated the procedure well. Sponge stick was removed from the patient's vagina. The patient's infraumbilical fascia was closed using #0 Vicryl on a GI needle. The patient's skin was closed laterally and infraumbilically using 4-0 Vicryl. The patient tolerated the procedure well. Sponge, lap and needle counts were correct x 2. The patient was taken to Recovery Room in stable condition. Anesthesia: [facility] Surgeon: Oscar Bonilla Terminal Supervisor: Andria Schultz Estimated blood loss (mL): 5 Pathology: none sent Condition: stable Disposition: PACU
[2024-07-06] MEDS: LACTATED RINGER'S SOLUTION 1,000 ML 50 ML IV (10:32)
[2024-07-06] MEDS: HYDROCODONE/ACET 5-325 MG TABLET 1 TAB PO (11:14)
== END 2024-07-06 12:50 | disposition home or self-care (01) ==
PROVIDERS: PCP Family Medicine; Visit Provider Obstetrics & Gynecology
PROC: (CPT 840; principal; 2024-07-06 09:20)
DX: R10.2 Pelvic and perineal pain (principal); E28.2 Polycystic ovarian syndrome; F17.290 Nicotine dependence, other tobacco product, uncomplicated
CPT/HCPCS: 49320; 36415; 84702; 85025; J1100; J1885; J2371; J2405; J2704; J2710; J3010

== ENCOUNTER 2024-11-21 22:46 | Emergency (ER) | payer BC, SELFPAY ==
[2024-11-21 22:56] VITALS: BP 126/83; PULSE 86; TEMP 36.8; O2SAT 98; BMI 18.0
--- NOTE | 2024-11-21 23:49 | ED.LOWEXI1 ---
HPI HPI - Extremity Injury (Lower) General Chief Complaint: Extremity Injury, Lower Stated Complaint: Extremity Injury, Lower Time Seen by Provider: 11/21/24 23:48 Source: patient Mode of arrival: walk-in Limitations: no limitations History of Present Illness HPI Narrative: states large dog step on left foot around 6pm. continues to have pain. no numbness or weakness Related Data Home Medications ?Medication ?Instructions ?Recorded ?Confirmed buspirone 10 mg tablet 10 mg PO BID 08/08/23 07/06/24 amoxicillin 500 mg tablet 500 mg PO Q6H 07/04/24 07/06/24 dicyclomine 20 mg tablet 20 mg PO QID PRN abdominal pain 07/04/24 07/06/24 metoprolol succinate 25 mg 25 mg PO Q12H 07/04/24 07/06/24 tablet,extended release 24 hr ondansetron 4 mg disintegrating 4 mg PO Q8H PRN nausea and vomiting 07/04/24 07/06/24 tablet pregabalin 25 mg capsule 25 mg PO Q8H 07/04/24 07/06/24 polyethylene glycol 3350 17 17 g PO DAILY 07/06/24 07/06/24 gram/dose oral powder (ClearLax) Previous Rx's ?Medication ?Instructions ?Recorded hydrocodone 5 mg-acetaminophen 325 1 tab PO Q4H PRN pain 4 days #16 07/06/24 mg tablet tabs ibuprofen 800 mg tablet 800 mg PO Q8H PRN pain 14 days #40 07/06/24 tabs Allergies Allergy/AdvReac Type Severity Reaction Status Date / Time ciprofloxacin (From Cipro) Allergy Severe Abdominal Verified 11/21/24 22:55 Pain codeine (From Allergy Severe accidental Verified 11/21/24 22:55 Tylenol-Codeine #3) overdose metoclopramide (From Reglan) Allergy Severe reglan Verified 11/21/24 22:55 rage sulfamethoxazole (From Allergy Mild Abdominal Verified 11/21/24 22:55 Bactrim) Pain trimethoprim (From Bactrim) Allergy Mild Abdominal Verified 11/21/24 22:55 Pain gabapentin Allergy Unknown Rash Verified 11/21/24 22:56 rizatriptan (From Maxalt) Allergy throat Verified 11/21/24 22:55 swelling Sulfa (Sulfonamide Allergy throat Verified 11/21/24 22:55 Antibiotics) swelling Opioid HPI Opioid Management Most Recent Pain and Opioid Data: Last Pain Scale 2 07/06/24, 12:50 Review of Systems ROS Status of ROS 10 or more systems reviewed and unremarkable except as noted in history and below [facility] Medical History (Updated 11/22/24 @ 00:36 by Harjeet Laguna MD) GERD (gastroesophageal reflux disease) ?K21.9 - Gastro-esophageal reflux disease without esophagitis (ICD-10) Pectus excavatum ?Q67.6 - Pectus excavatum (ICD-10) Urticaria ?L50.9 - Urticaria, unspecified (ICD-10) Neck pain ?M54.2 - Cervicalgia (ICD-10) Back pain ?M54.9 - Dorsalgia, unspecified (ICD-10) Anxiety ?F41.9 - Anxiety disorder, unspecified (ICD-10) Diarrhea ?R19.7 - Diarrhea, unspecified (ICD-10) IBS (irritable bowel syndrome) ?K58.9 - Irritable bowel syndrome, unspecified (ICD-10) Hypertension ?I10 - Essential (primary) hypertension (ICD-10) Heart murmur ?R01.1 - Cardiac murmur, unspecified (ICD-10) Pelvic pain ?R10.2 - Pelvic and perineal pain (ICD-10) Esophageal spasm ?K22.4 - Dyskinesia of esophagus (ICD-10) Total body pain ?R52 - Pain, unspecified (ICD-10) Fibromyalgia ?M79.7 - Fibromyalgia (ICD-10) Palpitations ?R00.2 - Palpitations (ICD-10) Depression ?F32.A - Depression, unspecified (ICD-10) Allergic rhinitis ?J30.9 - Allergic rhinitis, unspecified (ICD-10) PCOS (polycystic ovarian syndrome) ?E28.2 - Polycystic ovarian syndrome (ICD-10) Dizziness ?R42 - Dizziness and giddiness (ICD-10) Fatigue ?R53.83 - Other fatigue (ICD-10) Chest pain ?R07.9 - Chest pain, unspecified (ICD-10) Migraine ?G43.909 - Migraine, unspecified, not intractable, without status migrainosus (ICD-10) Right-sided temporomandibular joint pain-dysfunction syndrome ?M26.621 - Arthralgia of right temporomandibular joint (ICD-10) 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 disorder (ICD-10) Vasovagal syncope ?R55 - Syncope and collapse (ICD-10) Ventricular ectopy ?I49.3 - Ventricular premature depolarization (ICD-10) Rheumatic mitral valve disease ?I05.9 - Rheumatic mitral valve disease, unspecified (ICD-10) Mitral valve prolapse ?I34.1 - Nonrheumatic mitral (valve) prolapse (ICD-10) Surgical History History of laparoscopy ?Z98.890 - Other specified postprocedural states (ICD-10) History of ankle surgery ?Z98.890 - Other specified postprocedural states (ICD-10) Family History Other Family history of cancer Family history of diabetes mellitus Family history of heart disease Family history of myocardial infarction Social History (Updated 07/06/24 @ 08:20 by Hillary Salinas RN) Within the past year, how often did you have a drink containing alcohol: monthly or less Do you use any of these nicotine containing products: vaping products Non-prescribed substance use: denies use and former substance user Non-prescribed substance use details: former marijuana-denies use for a few months Highest level of school completed/degree received: Bachelor's degree Little interest or pleasure in doing things: not at all Feeling down, depressed, or hopeless: not at all Exam Constitutional Vital Signs, click to edit/add: Last Vital Signs Temp 98.3 F 11/21/24 22:56 Pulse 86 11/21/24 22:56 Resp 17 11/21/24 22:56 BP 126/83 11/21/24 22:56 Pulse Ox 98 11/21/24 22:56 O2 Del Method Room Air 11/21/24 22:56 Common normals: no apparent distress, average body habitus and oriented x3 HENMT Common normals: normocephalic and head/scalp atraumatic Eye Common normals: EOMs intact bilaterally, conjunctivae normal and no scleral icterus Respiratory Common normals: normal respiratory effort, no retractions, no use of accessory muscles and clear to auscultation bilaterally Cardio Common normals: regular rate, regular rhythm, S1 normal heart sound and S2 normal heart sound Extremity Other: no deformity of left foot. mild tenderness Neuro Common normals: oriented x3, CN's II-XII intact bilaterally, moves all extremities and no focal motor deficits Psych Appearance: grossly normal Course Vital Signs Vital signs: Vital Signs Temperature 98.3 F 11/21/24 22:56 Pulse Rate 86 11/21/24 22:56 Respiratory Rate 17 11/21/24 22:56 Blood Pressure 126/83 11/21/24 22:56 Pulse Oximetry 98 11/21/24 22:56 Oxygen Delivery Method Room Air 11/21/24 22:56 Temperature 98.3 F 11/21/24 22:56 Pulse Rate 86 11/21/24 22:56 Respiratory Rate 17 11/21/24 22:56 Blood Pressure 126/83 11/21/24 22:56 Pulse Oximetry 98 11/21/24 22:56 Oxygen Delivery Method Room Air 11/21/24 22:56 MDM - Extremity Injury (Lower) MDM Narrative Medical decision making narrative: presents complaining of left foot pain after large dog step on her foot. exam without deformity but does have tenderness. no discoloration. My preliminary review of xray is neg. Patient informed of the above and discharged home to follow up with her doctor Discharge Plan Discharge Chief Complaint: Extremity Injury, Lower Clinical Impression: Contusion of foot, left Patient Disposition: Home, Self-Care Prescriptions / Home Meds: No Action buspirone 10 mg tablet 10 mg PO BID dicyclomine 20 mg tablet 20 mg PO QID PRN (Reason: abdominal pain) metoprolol succinate 25 mg tablet extended release 24 hr 25 mg PO Q12H ondansetron 4 mg tablet,disintegrating 4 mg PO Q8H PRN (Reason: nausea and vomiting) pregabalin 25 mg capsule 25 mg PO Q8H amoxicillin 500 mg tablet 500 mg PO Q6H polyethylene glycol 3350 [ClearLax] 17 gram/dose powder 17 g PO DAILY ibuprofen 800 mg tablet 800 mg PO Q8H PRN (Reason: pain) 14 Days Qty: 40 0RF hydrocodone-acetaminophen 5-325 mg tablet 1 tab PO Q4H PRN (Reason: pain) 4 Days Qty: 16 0RF Print Language: Kinyarwanda Instructions: Foot Contusion (ED) Additional Instructions: use ibuprofen for pain and follow up with your doctor next week for recheck Referrals: Judith Lindquist MD [Primary Care Provider, Family Practice] - 1 week
--- NOTE | 2024-11-22 01:02 | PC.NURSE ---
i gave this patient verbal and written discharge orders and this patient voices yes to understanding these. at time of discharge this patient voices no concerns and shows no signs of distress
== END 2024-11-22 01:01 | disposition home or self-care (01) ==
PROVIDERS: Emergency Provider Internal Medicine; PCP Family Medicine
DX: S90.32XA Contusion of left foot, initial encounter (principal); W54.1XXA Struck by dog, initial encounter; F17.290 Nicotine dependence, other tobacco product, uncomplicated
CPT/HCPCS: 73630; 99283